=== PATIENT | female | born 1950 | race Caucasian/White ===

== ENCOUNTER → 2017-01-16 | Outpatient (CLI) | payer MEDICARE, OTHER ==
[~2017-01-16] MED LIST: ASPI325T PO; ATEN1TAB74 PO; ATEN50TA PO; BENI20TA25 PO; BENI40TA3 PO; DIAZ10TA PO; FENO145T2 PO; HYDR12.56 PO; LOSA50TA PO; METF500 PO
[2017-01-16 16:08] LABS: BLOOD, URINE NEG (NEG); GLUCOSE,URINE NEG (NEG); KETONE, URINE NEG (NEG); NITRITE,URINE NEG (NEG); PH, URINE 5.5 (5.0-8.5); SQUAMOUS EPITHELIAL CELL URINE <1 /hpf (0-5); URINE COLOR COLORLESS (YELLW/STRAW)
[2017-01-16 16:14] LABS: AUTOMATED NEUTROPHIL # 6.5 TH/MM3 (1.8-7.7); BASOPHIL # 0.1 TH/MM3 (0-0.2); BASOPHIL % 0.6 % (0.0-2.0); EOSINOPHIL # 0.3 TH/MM3 (0-0.4); EOSINOPHIL % 2.8 % (0.0-4.0); HEMATOCRIT 44.6 % (35.0-46.0); HEMO FLAGS DIFF FINAL; LYMPH % 27.8 % (9.0-44.0); LYMPHOCYTE # 2.9 TH/MM3 (1.0-4.8); MEAN CELL VOLUME 92.3 FL (80.0-100.0); MEAN CORPUSCULAR HEMOGLOBIN 32.2 PG (27.0-34.0); MEAN CORPUSCULAR HGB CONC 34.9 % (32.0-36.0); MONO % 6.6 % (0.0-8.0); NEUT % 62.2 % (16.0-70.0); PLATELET COUNT 220 TH/MM3 (150-450); RED BLOOD COUNT 4.83 MIL/MM3 (4.00-5.30); RED CELL DISTRIBUTION WIDTH 14.3 % (11.6-17.2); WHITE BLOOD COUNT 10.4 TH/MM3 (4.0-11.0)
[2017-01-16 16:35] LABS: BICARBONATE 24.9 MEQ/L (21.0-32.0); POTASSIUM 3.8 MEQ/L (3.5-5.1)
== END ==
LOC: PLAB 13:00
PROVIDERS: ATTEND Internal Medicine Nephrology
DX: N18.3 Chronic kidney disease, stage 3 (moderate) (principal)
CPT/HCPCS: 36415; 80069; 81001; 82088; 84244; 85025

== ENCOUNTER 2017-01-22 20:38 | Observation (INO) | payer MEDICARE, OTHER ==
[~2017-01-22] VITALS: Ht 160 cm; Wt 79.8 kg
[~2017-01-22 20:38] MED LIST changes: -ASPI325T PO; -ATEN50TA PO; -BENI40TA3 PO; -DIAZ10TA PO; -FENO145T2 PO; -HYDR12.56 PO; -LOSA50TA PO; -METF500 PO
[2017-01-22 20:51] VITALS: BP 161/87; PULSE 95; RESP 20; TEMP 98.5; O2SAT 98
[2017-01-22] MEDS ORDERED: ATEN50TA PO (20:55)
[2017-01-22] MEDS ORDERED: LOSA50TA PO (20:56)
[2017-01-22 21:10] VITALS: BP 179/90; PULSE 92; RESP 20; O2SAT 96
[2017-01-22] MEDS ORDERED: SODIUM CHLORIDE 0.9% FLUSH 10 ML FLUSH IVF PRN (21:15)
[2017-01-22] MEDS ORDERED: ASPI325T PO (21:24)
[2017-01-22] MEDS ORDERED: BENI40TA3 PO (21:24)
[2017-01-22] MEDS ORDERED: HYDR12.56 PO (21:24)
[2017-01-22] MEDS ORDERED: DIAZ10TA PO (21:24)
[2017-01-22 21:31] VITALS: BP_SYST 176; BP_SYST 179; BP_DIAS 83; BP_DIAS 90
[2017-01-22 21:55] LABS: AUTOMATED NEUTROPHIL # 5.2 TH/MM3 (1.8-7.7); BASOPHIL # 0.1 TH/MM3 (0-0.2); BASOPHIL % 0.7 % (0.0-2.0); EOSINOPHIL # 0.3 TH/MM3 (0-0.4); EOSINOPHIL % 3.1 % (0.0-4.0); HEMO FLAGS DIFF FINAL; LYMPH % 29.5 % (9.0-44.0); LYMPHOCYTE # 2.6 TH/MM3 (1.0-4.8); MEAN CELL VOLUME 92.4 FL (80.0-100.0); MEAN CORPUSCULAR HEMOGLOBIN 31.9 PG (27.0-34.0); MEAN CORPUSCULAR HGB CONC 34.5 % (32.0-36.0); MONO % 6.8 % (0.0-8.0); NEUT % 59.9 % (16.0-70.0); PLATELET COUNT 220 TH/MM3 (150-450); RED BLOOD COUNT 5.09 MIL/MM3 (4.00-5.30); RED CELL DISTRIBUTION WIDTH 13.1 % (11.6-17.2); WHITE BLOOD COUNT 8.8 TH/MM3 (4.0-11.0)
--- NOTE | 2017-01-22 22:02 | RADHPO ---
EXAM DATE/TIME: 01/22/2017 21:36 [facility] COMPARISON: No previous studies available for comparison. INDICATIONS : Short of breath. MEDICAL HISTORY : None. SURGICAL HISTORY : None. ENCOUNTER: Initial ACUITY: 1 day PAIN SCORE: 0/10 LOCATION: Bilateral chest FINDINGS: A single view of the chest demonstrates the lungs to be symmetrically aerated without evidence of mas s, infiltrate or effusion. The cardiomediastinal contours are unremarkable. Osseous structures are intact. CONCLUSION: The lungs are clear. Lionel Wood MD on January 22, 2017 at 22:01 Board Certified Radiologist. This report was verified electronically.
--- NOTE | 2017-01-22 22:02 | PD ---
HPI Chief Complaint: Neuro Symptoms/ Deficits Time Seen by Provider: 21:14 Travel History International Travel<30 days: No Contact w/Intl Traveler<30days: No Traveled to known affect area: No History of Present Illness HPI Patient's 6-year-old female presents emergency department for evaluation of right-sided hand weakness as well as dysarthria. These symptoms going on for the past 6 days. Patient relates a history of long-standing bilateral lower extremity weakness and is been followed by Dr. Mick Martin for this. These new symptoms alarmed the patient and her friend and instead come in and be checked out. She states the upper extremity weakness is never happened before. She does admit that both upper extremities do feel weak but the right one particularly. She denies any visual difficulties headache nausea vomiting diarrhea constipation. Denies previous history of stroke or heart attack. PFSH Past Medical History Heart Rhythm Problems: Yes (SVT) Cancer: No Cardiovascular Problems: Yes (SVT, AND A MURMUR) Diabetes: Yes Patient Takes Glucophage: No Diminished Hearing: No Fibromyalgia: Yes Gastrointestinal Disorders: Yes (INCONCLUSIVE CELIAC) Glaucoma: No Hepatitis: No Hiatal Hernia: No Hypertension: Yes Thyroid Disease: No Tetanus Vaccination: Unknown Influenza Vaccination: No ?: Not LMP: POST MENAPAUSAL Menopausal: Yes Ovarian Cysts: Yes Past Surgical History Abdominal Surgery: Yes Appendectomy: Yes Cardiac Surgery: No Section: Yes Ear Surgery: No Endocrine Surgery: No Eye Surgery: No Genitourinary Surgery: Yes (C SECTION AND CYSTS REMOVED FROM OVARIES) Gynecologic Surgery: Yes (FIBROID TUMOR REMOVED) Oral Surgery: No Pacemaker: No Thoracic Surgery: No Other Surgery: Yes Social History Alcohol Use: No Tobacco Use: Yes (1/2 PACK PER DAY 15 YEARS) Substance Use: No Allergies-Medications (Allergen,Severity, Reaction): Coded Allergies: No Known Allergies (Verified , 01/22/17) Reported Meds & Prescriptions Reported Meds & Active Scripts Active Reported Diazepam 10 Mg Tab 10 Mg PO HS PRN Benicar (Olmesartan) 40 Mg Tab 40 Mg PO DAILY Hydrochlorothiazide 12.5 Mg Tab 12.5 Mg PO BID Aspirin 325 Mg Tab 325 Mg PO DAILY Losartan (Losartan Potassium) 50 Mg Tab 50 Mg PO DAILY Atenolol 50 Mg Tab 50 Mg PO DAILY Review of Systems Except as stated in HPI: all other systems reviewed are Neg Physical Exam Narrative GENERAL: Well-developed well-nourished no apparent distress. SKIN: Focused skin assessment warm/dry. HEAD: Atraumatic. Normocephalic. EYES: Pupils equal and round. No scleral icterus. No injection or drainage. ENT: No nasal bleeding or discharge. Mucous membranes pink and moist. NECK: Trachea midline. No JVD. CARDIOVASCULAR: Regular rate and rhythm. No murmur appreciated. RESPIRATORY: No accessory muscle use. Clear to auscultation. Breath sounds equal bilaterally. GASTROINTESTINAL: Abdomen soft, non-tender, nondistended. Hepatic and splenic margins not palpable. MUSCULOSKELETAL: No obvious deformities. No clubbing. No cyanosis. No edema. NEUROLOGICAL: Cranial nerves II through XII are grossly intact nonfocal, patient has 3 out of 5 strength in plantar flexion of the right lower extremity , 4 out of 5 strength in the left lower extremity. 4-5 experimental mechanic strength in bilateral upper extremities. DTRs are normal throughout. Babinski's are downgoing bilaterally. Cerebellar testing normal.. PSYCHIATRIC: Appropriate mood and affect; insight and judgment normal. Data Data Last Documented VS Vital Signs Date Time Temp Pulse Resp B/P Pulse Ox O2 Delivery O2 Flow Rate FiO2 01/22/17 23:10 73 18 168/80 97 Room Air 01/22/17 21:32 2 01/22/17 20:51 98.5 Orders Ckmb (Isoenzyme) Profile (01/22/17 21:15) Complete Blood Count With Diff (01/22/17 21:15) Comprehensive Metabolic Panel (01/22/17 21:15) Magnesium (Mg) (01/22/17 21:15) Prothrombin Time / Inr (Pt) (01/22/17 21:15) Act Partial Throm Time (Ptt) (01/22/17 21:15) Troponin I (01/22/17 21:15) Chest, Single Ap (01/22/17 21:15) Ecg Monitoring (01/22/17 21:15) Iv Access Insert/Monitor (01/22/17 21:15) Oximetry (01/22/17 21:15) Oxygen Administration (01/22/17 21:15) Sodium Chloride 0.9% Flush (Ns Flush) (01/22/17 21:15) Ct Brain W/O Iv Contrast(Rout) (01/22/17 21:19) Aspirin Chew (Aspirin Chew) (01/22/17 23:15) Admit Order (Ed Use Only) (01/22/17 ) Labs Laboratory Tests Test 01/22/17 21:40 White Blood Count 8.8 TH/MM3 Red Blood Count 5.09 MIL/MM3 Hemoglobin 16.3 GM/DL Hematocrit 47.0 % Mean Corpuscular Volume 92.4 FL Mean Corpuscular Hemoglobin 31.9 PG Mean Corpuscular Hemoglobin 34.5 % Concent Red Cell Distribution Width 13.1 % Platelet Count 220 TH/MM3 Mean Platelet Volume 8.4 FL Neutrophils (%) (Auto) 59.9 % Lymphocytes (%) (Auto) 29.5 % Monocytes (%) (Auto) 6.8 % Eosinophils (%) (Auto) 3.1 % Basophils (%) (Auto) 0.7 % Neutrophils # (Auto) 5.2 TH/MM3 Lymphocytes # (Auto) 2.6 TH/MM3 Monocytes # (Auto) 0.6 TH/MM3 Eosinophils # (Auto) 0.3 TH/MM3 Basophils # (Auto) 0.1 TH/MM3 CBC Comment DIFF FINAL Differential Comment Prothrombin Time 10.4 SEC Prothromb Time International 0.9 RATIO Ratio Activated Partial 28.0 SEC Thromboplast Time Sodium Level 137 MEQ/L Potassium Level 4.3 MEQ/L Chloride Level 100 MEQ/L Carbon Dioxide Level 26.3 MEQ/L Anion Gap 11 MEQ/L Blood Urea Nitrogen 20 MG/DL Creatinine 1.20 MG/DL Estimat Glomerular Filtration 45 ML/MIN Rate Random Glucose 157 MG/DL Calcium Level 9.2 MG/DL Magnesium Level 2.1 MG/DL Total Bilirubin 0.3 MG/DL Aspartate Amino Transf 19 U/L (AST/SGOT) Alanine Aminotransferase 25 U/L (ALT/SGPT) Alkaline Phosphatase 86 U/L Total Creatine Kinase 75 U/L Troponin I LESS THAN 0.02 NG/ML Total Protein 7.9 GM/DL Albumin 3.7 GM/DL [facility] Medical Decision Making Medical Screen Exam Complete: Yes Emergency Medical Condition: Yes Interpretation(s) EKG shows normal sinus rhythm with a left axis deviation and left anterior fascicular block. Poor R-wave progression. Inverted T waves in lead [address] No [address] segment elevations or depressions. This is an abnormal EKG. There is no previous EKG for comparison. Differential Diagnosis Election abnormality, subacute stroke, TIA, MS. Narrative Course Patient is roomed in the emergency department, she is a very circuitous history starting at bilateral lower extremity weakness which been ongoing for years ending in this right-sided hand weakness and some mild slurred speech. On my physical exam patient has some weakness in all 4 extremities probably secondary to poor effort however she does have weakness in the right lower extremity and plantar flexion. CT exam shows: Last [address] 01/22/172118 Signed Impressions: Service Date/Time: Sunday, January 22, 2017 21:46 - CONCLUSION: There are 3 focal hypodensities in the high left fleming radiata which have features suggesting lacunar infarcts. However, the patient has acute symptoms including slurred speech. There is good mcallister-white matter differentiation. May consider performing an MRI for confirmation lacunar infarcts. Lionel Wood MD Chest X-Ray 01/22/172114 Signed Impressions: Service Date/Time: Sunday, January 22, 2017 21:36 - CONCLUSION: The lungs are clear. Lionel Wood MD Patient also does have an abnormal EKG initial troponin negative. She did take a full dose aspirin prior to arrival. Patient was discussed with George Villafana for admission to ED as [facility] for workup of subacute stroke. Diagnosis Primary Impression: Stroke Qualified Code: I63.9 - Cerebrovascular accident (CVA), unspecified mechanism Admitting Information Admitting Physician Requests: Observation Condition: Stable Ketan Mcbride MD Jan 22, 2017 22:01
[2017-01-22 22:03] LABS: CHLORIDE 100 MEQ/L (98-107); POTASSIUM 4.3 MEQ/L (3.5-5.1); SODIUM (NA) 137 MEQ/L (136-145)
[2017-01-22 22:07] LABS: ANION GAP 11 MEQ/L (5-15); BICARBONATE 26.3 MEQ/L (21.0-32.0); BLOOD UREA NITROGEN 20 MG/DL (7-18); MAGNESIUM 2.1 MG/DL (1.5-2.5)
[2017-01-22 22:08] LABS: INTERNATIONAL NORMALIZED RATIO 0.9 RATIO; PROTHROMBIN TIME - PATIENT 10.4 SEC (9.8-11.6)
[2017-01-22 22:10] LABS: ALT (GPT) 25 U/L (10-53); AST (GOT) 19 U/L (15-37); GLOMERULAR FILTRATION RATE 45 ML/MIN (>89)
[2017-01-22 22:12] LABS: TOTAL BILIRUBIN ADULT 0.3 MG/DL (0.2-1.0)
[2017-01-22 22:13] LABS: ALKALINE PHOSPHATASE 86 U/L (45-117)
[2017-01-22 22:23] LABS: CREATINE KINASE 75 U/L (26-192)
--- NOTE | 2017-01-22 22:45 | RADHPO ---
EXAM DATE/TIME: 01/22/2017 21:46 [facility] COMPARISON: No previous studies available for comparison. INDICATIONS : Altered mental status. Slurred speech. RADIATION DOSE: 57.61 CTDIvol (mGy) MEDICAL HISTORY : Diabetes mellitus type 2. Hypertension. SURGICAL HISTORY : None. ENCOUNTER: Initial ACUITY: 2 weeks PAIN SCALE: 0/10 LOCATION: cranial TECHNIQUE: Multiple contiguous axial images were obtained of the head. Using automated exposure control and adj ustment of the mA and/or kV according to patient size, radiation dose was kept as low as reasonably a chievable to obtain optimal diagnostic quality images. FINDINGS: CEREBRUM: The ventricles are normal for age. No evidence of midline shift, mass lesion, hemorrhage or acute in farction. There are 3 lacunar infarcts in the high convexity anterior left fleming radiata measuring up to 7 mm size. No extra-axial fluid collections are seen. POSTERIOR FOSSA: The cerebellum and brainstem are intact. The 4th ventricle is midline. The cerebellopontine angle i s unremarkable. EXTRACRANIAL: The visualized portion of the orbits is intact. SKULL: The calvaria is intact. No evidence of skull fracture. CONCLUSION: There are 3 focal hypodensities in the high left fleming radiata which have features suggesting lacuna r infarcts. However, the patient has acute symptoms including slurred speech. There is good mcallister-wh ite matter differentiation. May consider performing an MRI for confirmation lacunar infarcts. Lionel Wood MD on January 22, 2017 at 22:41 Board Certified Radiologist. This report was verified electronically.
[2017-01-22 23:10] VITALS: BP 168/80; PULSE 73; RESP 18; O2SAT 97
[2017-01-22] MEDS ORDERED: ASPIRIN 81 MG CHEW TAB CHEW ONE (23:15)
[2017-01-23] VITALS (11 sets, daily range): BP systolic 139–176; BP diastolic 71–104; PULSE 66–87; RESP 15–20; TEMP 96.2–97.6; O2SAT 94–99
[2017-01-23] MEDS ORDERED: GLUCAGON 1 MG/ML VIAL IM/SQ PRN (00:45)
[2017-01-23] MEDS ORDERED: SODIUM CHLORIDE 0.9% FLUSH 10 ML FLUSH IV FLUSH PRN (00:45)
[2017-01-23] MEDS ORDERED: DEXTROSE 50% IN WATER 50 ML VIAL(D50) IV PUSH PRN (00:45)
[2017-01-23] MEDS: ENOXAPARIN SODIUM 40 MG/0.4 ML SYRINGE SQ SCH (01:05)
[2017-01-23] MEDS: SODIUM CHLOR 0.9% 1000 ML INJ 1,000 ML IV SCH ×2 (01:05→15:34)
[2017-01-23] MEDS: INSULIN ASPART SUPPLEMENTAL SCALE SQ SCH ×4 (06:19→21:00)
--- NOTE | 2017-01-23 08:44 | MB ---
cc: FAISAL CONLEY DATE OF CONSULTATION 01/23/2017 REASON FOR CONSULTATION Ischemic stroke. HISTORY OF PRESENT ILLNESS Ms. Rodríguez is a 66-year-old female who presented to the [facility] Emergency Department for evaluation of recent onset of slurred speech and right-sided hand weakness. The patient states that her slurred speech started almost two days ago. However, she had felt that her right hand, "felt funny" where she was not able to use it properly in doing daily tasks like toothbrushing, writing or using the phone. That lasted "a couple of days". The patient also states that she has a longstanding history. She thinks since Hubert to 2016 where she had her both legs gave out on her. The also reports nonspecific left-sided frontal headache. Denies double vision, blurred vision. She thinks she occasionally gets droopy on the right side of the face but denies numbness of the right side of the face. She denies weakness of an extremity or numbness of an extremity. The patient denies history of TIA or stroke. The patient has history of hypertension, diabetes and she is not on a blood thinner. The patient also reports that she has lost vision in the right eye after her cataract surgery for two weeks. REVIEW OF SYSTEMS A 12-point review of systems is negative except for what is stated in the HPI. PAST MEDICAL HISTORY 1. Hypertension. 2. Diabetes. 3. Questionable SVT/murmur. PAST SURGICAL HISTORY 1. Cataract. 2. Appendectomy. 3. section. 4. Removal of fibroid tumor. SOCIAL HISTORY Denies alcohol and substance abuse. Smokes one-pack per day for 15 years. ALLERGIES No known allergies. MEDICATIONS 1. Diazepam. 2. Benicar. 3. Hydrochlorothiazide. 4. Losartan. 5. Atenolol. PHYSICAL EXAMINATION GENERAL: Well-developed, good historian, not in apparent distress. A little bit of anxiety. HEENT: Atraumatic, normocephalic. Intact hearing. Intact vision. NECK: Trachea in the midline. No JVD, no carotid bruits. CARDIOVASCULAR: Regular rate and rhythm. RESPIRATORY: Clear to auscultation. No wheezes. MUSCULOSKELETAL: No obvious deformity. No clubbing, no cyanosis, no edema. Moves all extremities equally. NEUROLOGICAL: Awake, alert and oriented to time, person and place. Intact memory. Cranial nerve examination with subtle right facial weakness, slurred speech, intact speech content. Intact naming. Intact repetition. No dysphasic symptoms. Intact external ocular motility. Left cataract. Intact elevation of the uvula. Normal tongue, normal tongue movement. Intact facial sensation. Intact trapezius and sternocleidomastoid. Normal cerebellar signs, [id number], [id number]. Reflexes 2+ bilateral and symmetrical. Muscle strength 5/5 bilateral and symmetrical. No abnormal movement. Normal tone. Plantars are bilaterally downgoing, intact. Intact stance, intact gait. No ataxia. PSYCHIATRIC: Appropriate mood and behavior. No hallucinations. LABORATORY DATA White blood cells 8.8, hemoglobin 15.3, MCV 92, platelet 220. Sodium 137, potassium 4.3, anion gap 11, BUN 20, creatinine 1.2, calcium 9.2, magnesium 2.1. SGOT 19, GPT 25, alkaline phosphatase 86, albumin 3.7, total protein 7.1. IMAGING STUDIES - Head CT scan without contrast revealed three focal hypodensities in the high left coronary artery which are features suggestive of lacunar infarcts. However, the patient has acute symptoms including slurred speech. There is good mcallister-white matter differentiation. DIAGNOSTIC IMPRESSION 1. Acute/subacute infarct. 2. Given the constellation of dysarthria and clumsy hands, this can be a lacunar infarction on left region of the brain. 3. Hypertension. 4. Diabetes mellitus. PLAN 1. Neuro checks q. 4 hourly. 2. Aspirin 81 mg daily. 3. Telemetry. 4. Cardiac echo. 5. MRI brain without contrast. 6. MRA brain without contrast. 7. Carotid ultrasound. 8. DVT prophylaxis. 9. Speech therapy recommendations are appreciated. Thank you for the opportunity to participate in the care of your patient. MD JOE Becerra/TRUONG /8:13 AM :26 AM [facility]
[2017-01-23] MEDS ORDERED: ASPIRIN 81 MG CHEW TAB PO SCH (09:00)
[2017-01-23] MEDS: SODIUM CHLORIDE 0.9% FLUSH 10 ML FLUSH IV FLUSH SCH ×2 (09:00→21:00)
[2017-01-23] MEDS: ATENOLOL 50 MG TAB PO SCH (09:12)
[2017-01-23] MEDS: ASPIRIN 325 MG TAB PO SCH (09:12)
--- NOTE | 2017-01-23 09:17 | EKG ---
Date Performed: 01/22/2017 Time Performed: 21:09:00 PTAGE: 66 years EKG: Possible ectopic atrial rhythm Possible left anterior fascicular block Possible anterior in farct - age undetermined Possible left ventricular hypertrophy Lateral T wave changes may be due to h ypertrophy and/or ischemia Abnormal ECG NO PREVIOUS TRACING DOCTOR: Cesar Fernando Interpretating Date/Time 01/23/2017 09:15:04
--- NOTE | 2017-01-23 09:26 | MH ---
cc: QUINTIN HICKEY MD DATE OF ADMISSION: 01/22/2017 DATE OF 1950 CHIEF COMPLAINT Right-sided hand weakness and difficulty in speaking for the last six days. HISTORY OF PRESENT ILLNESS This is a 66-year-old very pleasant female with past medical-surgical history significant for SVT and heart murmur, history of diabetes mellitus, fibromyalgia, celiac disease, history of hypertension, history of and a cyst removed from the ovary, fibroid tumor removed, history of appendectomy. She came to the ER at [facility] complaining of right hand weakness as well as the difficulty in speaking for the last six days and she did not seek immediate attention for these symptoms or visit to the ER of any hospital. She has a history of hypertension as dictated above and also history of bilateral lower extremity weakness and had been following with Dr. Wilfred Martin in his office and she said that she had weakness of the right hand and also difficulty in speaking. Her friend insisted that she go ahead and check it out, but she did not and this upper extremity weakness in the right hand never happened before. She denies any headache, any blurred vision, any nausea or vomiting, any double vision, any hearing problem. Denies any numbness or tingling denies any neck stiffness, fever or chills. Denies any chest pain, shortness of breath. Denies any abdominal pain. Denies any blood in the stool, black stool. Denies any hematuria, UTI symptoms and denies any other symptom at the time of examination. PAST MEDICAL-SURGICAL HISTORY As dictated above. SOCIAL HISTORY Denies drinking. Smoked 1/2-pack per day for more than 15 years and she denies any drug abuse. She lives at home alone. 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 FAMILY HISTORY Nothing significant. ALLERGIES No known drug allergies. MEDICATIONS 1. Diazepam 10 mg p.o. at bedtime p.r.n. insomnia. 2. Benicar 40 mg p.o. daily. 3. Hydrochlorothiazide 12.5 mg p.o. b.i.d. 4. Aspirin 325 mg p.o. daily. 5. Losartan 50 mg p.o. daily. 6. Atenolol 50 mg p.o. daily. REVIEW OF SYSTEMS Positive for mild right-hand weakness and difficulty in speech. All other review of systems are negative. PHYSICAL EXAMINATION GENERAL: This is a 66-year-old female sitting on the bed, not in acute distress. VITAL SIGNS: Temperature is 97.6, heart 87, respiration 20, blood pressure 139/73, O2 saturation 99 on room air. HEENT: Normocephalic, atraumatic. EOMI. PERRLA. Oral mucosa moist. NECK: Supple. No visible thyromegaly or neck mass. Trachea is central. CVS: Regular rate and rhythm. LUNGS: Respirations clear to auscultation bilaterally. ABDOMEN: Soft, nontender. Bowel sounds good. EXTREMITIES: No cyanosis, no clubbing. Full range of motion of all extremities. NEUROLOGIC EXAMINATION: Cranial nerves II through XII grossly intact, nonfocal. The patient has 3/5 strength on the right lower extremity and 4/5 strength in the left lower extremity. Strength in the upper extremities 4/5. Gait and reflexes are normal. Babinski downgoing bilaterally. Cerebellar tests are normal. Higher mental functions are intact. PSYCH: Mood and affect is normal. The patient is cooperative. SKIN: Warm and dry. LABORATORY DATA CBC totally unremarkable except for hemoglobin of 16.3 - high, hematocrit 47.0 - high. BMP totally unremarkable except for BUN of 20 - high, creatinine 1.20 - high, GFR 45, glucose 157 - high. Troponin-I less than 0.02. Total protein 7.9 - normal, albumin 3.7 - normal. LFTs are normal. Total creatine kinase 75 -normal. PT 10.4, INR 0.9, APTT 28.0. CHEST X-RAY Shows lungs are. CT BRAIN Shows there are three focal hypodensities in the high left fleming radiata which have features suggesting lacunar infarct. However, the patient had acute symptoms including slurred speech. There is a good mcallister-white matter differentiation. May consider performing MRI. MRI and MRA of the brain are pending. Carotid ultrasound pending. ASSESSMENT AND PLAN 1. This is a 66-year-old female who came to the ER diagnosed with six-day history of right hand weakness as well as dysarthria, rule out stroke. A CT brain done shows three focal hypodensities in the high left fleming radiata which have feature suggesting lacunar infarct and there is a good mcallister-white matter differentiation on the CT. Getting MRA/MRI of the brain and carotid Doppler. Neurology consulted. Neuro check every 6 hours. The patient is on aspirin. The patient's blood pressure giving her permissible hypertension. Neuro checks every 6-hours. Further recommendations per patient progress. 2. History of hypertension. Continue home medication. Given permissible hypertension. 3. History of anxiety. Continue with diazepam. 4. History of diabetes mellitus, most likely diet controlled. We will monitor blood sugar closely during hospital stay. 5. History of SVT. The patient is not having any tachycardia. 6. History of celiac disease. 7. DVT prophylaxis. Lovenox 40 mg subcutaneous daily. 8. GI prophylaxis. Protonix 40 mg p.o. daily. We are going to manage the patient on a daily basis and make recommendations on a daily basis. Quintin Hickey MD EA/TRUONG /8:35 AM /8:58 AM
--- NOTE | 2017-01-23 11:29 | RADHPO ---
EXAM DATE/TIME: 01/23/2017 10:37 [facility] COMPARISON: No previous studies available for comparison. INDICATIONS : Cerebrovascular accident. MEDICAL HISTORY : Hypercholesterolemia. Hypertension. Cerebrovascular accident. SVT and murmur. Ovarian cysts. Diabet es. Renal disease. SURGICAL HISTORY : Appendectomy. section. Fibroid tumor removed. Ovarian cysts removed. Left knee arthroscopy . ENCOUNTER: Initial ACUITY: 1 day PAIN SCORE: 0/10 LOCATION: Bilateral neck PEAK SYSTOLIC VELOCITIES (cm/sec): ICA/CCA RATIO: Right: 1.1 Left: 0.8 ICA: Right: 113 Left: 78 CCA: Right: 106 Left: 97 ECA: Right: 107 Left: 145 VERTEBRAL: Right: 57 antegrade Left: 34 antegrade Elevated flow velocities and ICA/CCA ratios have been found to correlate with increased degrees of vessel stenosis, calculated as percentage of diameter relative to a normal segment of distal ICA/CCA FINDINGS: RIGHT CAROTID: No significant stenosis is visualized. There is mild atherosclerotic plaquing. The waveforms are wit hin normal limits. LEFT CAROTID: No significant stenosis is visualized. There is mild atherosclerotic plaquing. The waveforms are with in normal limits. VERTEBRAL ARTERIES: Antegrade flow is seen in both vertebral arteries. MISCELLANEOUS: None. CONCLUSION: 1. Mild atherosclerotic plaquing at the carotid bifurcations. No hemodynamically significant carotid artery stenosis. Nikolas Stewart MD on January 23, 2017 at 11:27 Board Certified Radiologist. This report was verified electronically.
--- NOTE | 2017-01-23 13:31 | EC ---
Study Study Date:01/23/2017 STUDY CONCLUSIONS SUMMARY - Procedure narrative: Transthoracic echocardiography. Image quality was fair. Scanning was performed from the parasternal, apical, and subcostal acoustic windows. - Left ventricle: The cavity size was normal. Wall thickness was normal. Systolic function was normal. The estimated ejection fraction was in the range of 55% to 60%. Although no diagnostic regional wall motion abnormality was identified, this possibility cannot be completely excluded on the basis of this study. - Aortic valve: Poorly visualized. - Mitral valve: Trace regurgitation. If LV function is below 40, please consider prescribing an ACEI or ARB or document rationale for non-use. PROCEDURE DATA STUDY STATUS: Elective. Procedure: Transthoracic echocardiography. Image quality was fair. Scanning was performed from the parasternal, apical, and subcostal acoustic windows. Study completion: The patient tolerated the procedure well. Transthoracic echocardiography. M-mode, complete 2D, complete spectral Doppler, and color Doppler. Height: Height: 63in. Weight: Weight: 174.6lb. Body mass index: BMI: 31kg/m^2. Body surface area: BSA: 1.83m^2. Patient status: Inpatient. CARDIAC ANATOMY LEFT VENTRICLE: The cavity size was normal. Wall thickness was normal. Systolic function was normal. The estimated ejection fraction was in the range of 55% to 60%. Although no diagnostic regional wall motion abnormality was identified, this possibility cannot be completely excluded on the basis of this study. AORTIC VALVE: Poorly visualized. Doppler: Transvalvular velocity was within the normal range. There was no stenosis. No regurgitation. Valve area: 1.46cm^2 (Vmax). Indexed valve area: 0.8cm^2/m^2 (Vmax). Peak gradient: 13mm Hg (S). AORTA: Aortic root: The aortic root was normal in size. MITRAL VALVE: Structurally normal valve. Doppler: Transvalvular velocity was within the normal range. There was no evidence for stenosis. Trace regurgitation. Peak gradient: 2mm Hg (D). LEFT ATRIUM: The atrium was normal in size. RIGHT VENTRICLE: The cavity size was normal. Wall thickness was normal. PULMONIC VALVE: Doppler: Transvalvular velocity was within the normal range. There was no evidence for stenosis. No regurgitation. TRICUSPID VALVE: Structurally normal valve. Doppler: Transvalvular velocity was within the normal range. No regurgitation. PULMONARY ARTERY: The main pulmonary artery was normal-sized. Systolic pressure was within the normal range. RIGHT ATRIUM: The atrium was normal in size. PERICARDIUM: There was no pericardial effusion. SYSTEMIC VEINS: Inferior vena cava: The vessel was normal in size. Patient weight: 174.6lb _Ejection fraction:_ 65-75% _Fractional shortening:_ 32% up to 5Kg 5-11.5Kg 11.6-22.9Kg 23-45Kg 45-57Kg Aortic Root 7-13 <17 13-22 17-27 17-27 LA diam 6-13 <23 24-38 33-47 37-40 RVID 10-17 7-15 7-15 7-18 8-17 LVIDd 12-22 <32 24-38 33-47 37-40 LVPW 2-4 3-6 5-7 6-8 7-8 IVS 2-4 3-6 5-7 6-8 7-8 BASIC MEASUREMENTS ADULT NORMAL Left ventricle LV internal dimension, ED, chordal 44.1 mm 43-52 level, PLAX LV internal dimension, ES, chordal 30.5 mm 23-38 level, PLAX Fractional shortening, chordal level, 31 % >29 PLAX LV posterior wall thickness, ED 8.14 mm IVS/LVPW ratio, ED 1 <1.3 Ventricular septum Septal thickness, ED 8.14 mm Aortic valve Leaflet separation *14 mm 15-26 BASIC MEASUREMENTS ADULT NORMAL Aortic valve Leaflet separation *14 mm 15-26 Aorta Root diameter, ED *19 mm 20-37 Left atrium Anterior-posterior dimension, ES 36 mm 19-40 Anterior-posterior dimension index, ES 1.97 cm/m^2 <2.2 LA/aortic root ratio 1.89 DOPPLER MEASUREMENTS ADULT NORMAL Aortic valve Peak velocity, S 179 cm/s Peak gradient, S 13 mm Hg Valve area, Vmax 1.46 cm^2 Valve area index, Vmax 0.8 cm^2/m^2 Mitral valve Peak E-wave velocity 78.5 cm/s Peak A-wave velocity 101 cm/s Deceleration time 169 ms 150-230 Peak gradient, D 2 mm Hg Peak E/A ratio 0.8 LEGEND: Mean values are shown as u=mean value. Asterisk (*) thompson values outside specified normal range. Prepared and signed by Ernesto Zee [id number]
[2017-01-23 16:09] LABS: HEMOGLOBIN A1b 1.3 %; HEMOGLOBIN Ao 82.2 %; HEMOGLOBIN F 1.6 %; HEMOGLOBIN LA1C 2.1 %; HEMOGLOBIN P3 4.4 %
--- NOTE | 2017-01-23 18:05 | RADHPO ---
EXAM DATE/TIME: 01/23/2017 14:57 [facility] COMPARISON: MRI BRAIN W/O CONTRAST, January 23, 2017, 14:57. INDICATIONS : Slurred speech. MEDICAL HISTORY : Hypertension. Arthritis. Diabetes mellitus type 2. SURGICAL HISTORY : Hysterectomy. Arthroscopy. ENCOUNTER: Initial ACUITY: 2 day PAIN SCORE: 0/10 LOCATION: head Please note a normal MRA of the brain does not entirely exclude the possibility of a small aneurysm, nor the possibility of distal intracranial vessel disease. TECHNIQUE: 3D time of flight MRA was performed. Source images, multiplanar STS MIP, and 3D volume MIP reconstru ctions were reviewed. FINDINGS: First the moderately severe diffuse attenuation of the cavernous carotid and supraclinoid carotid on the left. The flow related enhancement in the left anterior and middle cerebral territories is corres pondingly diminished. The anterior circulation on the right is intact and unremarkable. The posterior circulation structures are intact and unremarkable. There is no evidence of major vessel occlusion. No aneurysm or vascular malformation is identified. CONCLUSION: Moderate asymmetric attenuation of the distal left internal carotid artery with correspondingly dimin ished left-sided anterior circulation flow related enhancement. The appearance may reflect intrinsic steno-occlusive disease, however inflow abnormality as potentially from proximal left carotid or barfield tid bifurcation disease should additionally be considered and screened for. George Wallis MD on January 23, 2017 at 17:59 Board Certified Radiologist. This report was verified electronically.
--- NOTE | 2017-01-23 18:32 | RADHPO ---
EXAM DATE/TIME: 01/23/2017 14:57 [facility] COMPARISON: No previous studies available for comparison. INDICATIONS : Slurred speech. MEDICAL HISTORY : Hypertension. Diabetes mellitus type 2. SURGICAL HISTORY : Arthroscopy. Hysterectomy. ENCOUNTER: Initial ACUITY: 2 day PAIN SCORE: 0/10 LOCATION: head TECHNIQUE: Multiplanar, multisequence MRI of the brain was performed without contrast. FINDINGS: There are 3 lesions seen in the left frontal white matter on CT that are identified on MRI. The large st lesion measures 1 cm in diameter and has very intense increased signal on the diffusion weighted i mages. The other smaller subcentimeter lesions have much less signal abnormality on diffusion weighte d images. There is also a sub-5 mm lesion in the left parietal lobe which has increased signal on dif fusion weighted images and on the flair images. No significant signal abnormality in the posterior fossa. There is no mass effect or midline shift. N o hydrocephalus. CONCLUSION: 1. 1 cm diameter spherical focus of intense increased signal abnormality in the posterior left fronta l lobe on the diffusion weighted images. Primary differential diagnosis is an acute lacunar infarct. However other conditions such as infection or tumor can occasionally give this appearance. Recommend further evaluation with MRI of the brain with contrast to assess for enhancement. There are 2 additio nal subcentimeter lesions in the left frontal lobe and one in the left parietal lobe that have much l ess signal abnormality on diffusion weighted images and could represent subacute infarcts or other le sions. These could also be evaluated on MRI with contrast. There is no mass effect or shift. No evide nce for hemorrhage. No hydrocephalus. Carlton Early MD on January 23, 2017 at 18:21 Board Certified Radiologist. This report was verified electronically.
[2017-01-24] VITALS (7 sets, daily range): BP systolic 160–214; BP diastolic 83–128; PULSE 64–84; RESP 16–18; TEMP 96.3–98.4; O2SAT 94–98
[2017-01-24] MEDS: ENOXAPARIN SODIUM 40 MG/0.4 ML SYRINGE SQ SCH ×2 (01:54→22:55)
[2017-01-24] MEDS: SODIUM CHLOR 0.9% 1000 ML INJ 1,000 ML IV SCH ×2 (05:20→06:45)
[2017-01-24] MEDS: INSULIN ASPART SUPPLEMENTAL SCALE SQ SCH ×5 (06:07→22:55)
[2017-01-24 06:28] LABS: AUTOMATED NEUTROPHIL # 3.9 TH/MM3 (1.8-7.7); BASOPHIL % 0.5 % (0.0-2.0); EOSINOPHIL # 0.2 TH/MM3 (0-0.4); EOSINOPHIL % 3.3 % (0.0-4.0); HEMATOCRIT 39.2 % (35.0-46.0); HEMO FLAGS DIFF FINAL; LYMPH % 34.4 % (9.0-44.0); LYMPHOCYTE # 2.3 TH/MM3 (1.0-4.8); MEAN CELL VOLUME 92.2 FL (80.0-100.0); MEAN CORPUSCULAR HEMOGLOBIN 32.7 PG (27.0-34.0); MEAN CORPUSCULAR HGB CONC 35.4 % (32.0-36.0); MONO % 6.6 % (0.0-8.0); NEUT % 55.2 % (16.0-70.0); PLATELET COUNT 156 TH/MM3 (150-450); RED BLOOD COUNT 4.25 MIL/MM3 (4.00-5.30); RED CELL DISTRIBUTION WIDTH 12.9 % (11.6-17.2); WHITE BLOOD COUNT 6.8 TH/MM3 (4.0-11.0)
[2017-01-24 08:14] LABS: ALKALINE PHOSPHATASE 60 U/L (45-117); ALT (GPT) 17 U/L (10-53); ANION GAP 8 MEQ/L (5-15); AST (GOT) 8 U/L (15-37); BICARBONATE 26.9 MEQ/L (21.0-32.0); BLOOD UREA NITROGEN 22 MG/DL (7-18); CHLORIDE 108 MEQ/L (98-107); GLOMERULAR FILTRATION RATE 60 ML/MIN (>89); POTASSIUM 4.1 MEQ/L (3.5-5.1); SODIUM (NA) 143 MEQ/L (136-145); TOTAL BILIRUBIN ADULT 0.5 MG/DL (0.2-1.0)
--- NOTE | 2017-01-24 08:14 | HHI.PR ---
Subjective History of Present Illness Patient feel better still have speech problem wants to go home MRI Brain noted s/p MRI of Brain with contrast shows stroke. d/w ABIGAIL Mayes at bed side. Review of Systems Constitutional Constitutional: Fatigue, Weakness Neurologic Neurologic Remarks Dysarthria, Vitals/Results Intake & Output 01/23/17 01/23/17 01/24/17 15:00 23:00 07:00 Intake Total 1040 ml 420 ml Balance 1040 ml 420 ml Intake Oral 1040 ml 420 ml # Voids 6 3 # Bowel Movements 1 1 Vital Signs Vital Signs Date Time Temp Pulse Resp B/P Pulse Ox O2 Delivery O2 Flow Rate FiO2 01/24/17 04:00 97.7 76 18 180/83 96 01/24/17 00:00 98.4 74 18 161/86 96 01/23/17 20:00 77 01/23/17 20:00 97.3 67 20 151/86 96 01/23/17 16:00 96.2 74 16 144/71 95 01/23/17 12:30 97.4 67 16 144/75 94 01/23/17 09:21 96.4 85 15 165/104 95 01/23/17 09:20 95 Nasal Cannula 2.00 CBC/BMP: 01/24/17 0610 01/22/17 2140 Lab Results Laboratory Tests Test 01/24/17 06:10 White Blood Count 6.8 TH/MM3 Red Blood Count 4.25 MIL/MM3 Hemoglobin 13.9 GM/DL Hematocrit 39.2 % Mean Corpuscular Volume 92.2 FL Mean Corpuscular Hemoglobin 32.7 PG Mean Corpuscular Hemoglobin 35.4 % Concent Red Cell Distribution Width 12.9 % Platelet Count 156 TH/MM3 Mean Platelet Volume 8.4 FL Neutrophils (%) (Auto) 55.2 % Lymphocytes (%) (Auto) 34.4 % Monocytes (%) (Auto) 6.6 % Eosinophils (%) (Auto) 3.3 % Basophils (%) (Auto) 0.5 % Neutrophils # (Auto) 3.9 TH/MM3 Lymphocytes # (Auto) 2.3 TH/MM3 Monocytes # (Auto) 0.4 TH/MM3 Eosinophils # (Auto) 0.2 TH/MM3 Basophils # (Auto) 0.0 TH/MM3 CBC Comment DIFF FINAL Differential Comment Physical Exam General General Appearance: Well Developed, Well Nourished, No Acute Distress, Comfortable Eyes Eye Exam: Sclera White, Extraocular Movement Intact Throat Throat Exam: Oral Mucosa [place] & Moist, Oral Pharynx Normal Neck Neck Exam: Neck Supple Pulmonary Resp Exam: Clear Bilaterally, Breath Sounds Equal, No Distress Cardiology CV Exam: Regular, Normal Sinus Rhythm Gastrointestinal/Abdomen GI Exam: Soft, Non-Tender, Bowel Sounds Present Integumentary Skin Exam: Clear, Warm, Dry, Intact Extremeties Extremities Exam: No Edema Neurologic Neuro Exam: Alert, Awake, Oriented, Moving All Extremities Neuro Remarks Dysarthria, Cranial nerve examination with subtle right facial weakness, slurred speech, intact speech content. Intact naming. Intact repetition. No dysphasic symptoms. Left cataract. Intact elevation of the uvula. Normal tongue, normal tongue movement. Intact facial sensation. Normal cerebellar signs, [id number], [id number]. Reflexes 2+ bilateral and symmetrical. Muscle strength 5/5 bilateral and symmetrical. No abnormal movement. Normal tone. Plantars are bilaterally downgoing, intact. intact gait. No ataxia. Psychiatric Psych Exam: Appropriate Responses VTE Prophylaxis VTE Prophylaxis Meds: Heparin PUD Prophylasis PUD Prophylaxis: Protonix Assessment/Plan Assessment/Plan ASSESSMENT AND PLAN 1. This is a 66-year-old female who came to the ER diagnosed with six-day history of right hand weakness as well as dysarthria, rule out stroke. A CT brain done shows three focal hypodensities in the high left fleming radiata which have feature suggesting lacunar infarct and there is a good mcallister-white matter differentiation on the CT. S/P MRA/MRI of the brain shows stroke..and carotid Doppler. Neurology input noted. Neuro check every 6 hours. The patient is on aspirin. The patient's blood pressure giving her permissible hypertension. Neuro checks every 6-hours. Further recommendations per patient progress. 2. History of hypertension. Continue home medication. + Clonidine 0.1 mg PO every 6 hrs PRN Hypertension. 3. History of anxiety. Continue with diazepam. 4. History of diabetes mellitus, most likely diet controlled. We will monitor blood sugar closely during hospital stay. 5. History of SVT. The patient does not have any tachycardia. 6. History of celiac disease. 7. DVT prophylaxis. Lovenox 40 mg subcutaneous daily. 8. GI prophylaxis. Protonix 40 mg p.o. daily. 9. Hypertriglyceridemia...started on Tricor. We are going to manage the patient on a daily basis and make recommendations on a daily basis. Discussed Condition with: Patient Quintin Templeton MD Jan 24, 2017 08:14
[2017-01-24] MEDS: ATENOLOL 50 MG TAB PO SCH (08:45)
[2017-01-24] MEDS ORDERED: DIAZEPAM 10 MG TAB PO PRN (08:45)
[2017-01-24] MEDS: SODIUM CHLORIDE 0.9% FLUSH 10 ML FLUSH IV FLUSH SCH ×2 (08:46→21:00)
[2017-01-24] MEDS: ASPIRIN 325 MG TAB PO SCH (08:46)
[2017-01-24] MEDS ORDERED: metFORMIN HCL 500 MG TAB PO SCH (09:00)
[2017-01-24] MEDS ORDERED: LOSARTAN 50 MG TAB PO SCH (09:00)
[2017-01-24 09:11] LABS: HDL CHOLESTEROL 25.4 MG/DL (40.0-60.0); LDL CHOLESTEROL 86 MG/DL (0-99)
[2017-01-24] MEDS ORDERED: GADODIAMIDE PF 287 MG/ML 5 ML VIAL (for RAD MRI) IV ONE (09:29)
[2017-01-24] MEDS: HYDROCHLOROTHIAZIDE 12.5 MG CAP PO SCH ×2 (10:03→22:50)
--- NOTE | 2017-01-24 10:19 | RADHPO ---
EXAM DATE/TIME: 01/24/2017 09:26 [facility] COMPARISON: MRI BRAIN W/O CONTRAST, January 23, 2017, 14:57. INDICATIONS : Stroke. Slurred speech. CONTRAST: 15 cc Omniscan (gadodiamide) IV MEDICAL HISTORY : Hypertension. Diabetes mellitus type 2. SURGICAL HISTORY : section. Left knee, right eye cataract and fibroid tumor removed. ENCOUNTER: Subsequent ACUITY: 2 day PAIN SCORE: 0/10 LOCATION: Head. TECHNIQUE: Multiplanar, multisequence MRI of the brain was performed both prior to and following the administrat ion of paramagnetic contrast. FINDINGS: Areas of signal abnormality in the high convexity left centrum semiovale an appearance most consisten t with ischemic insults. The largest lesion is notable for prominently restricted diffusion and dimin ished ADC without any associated contrast enhancement. This is presumably subacute. Smaller adjacent lesions are chronic in appearance. There is no evidence of brain mass or hemorrhage. Normal contrast enhancement is present in the intracranial vascular structures. No abnormal enhancement is noted. Ext racranial structures are stable, benign and intact. CONCLUSION: Abnormal findings in the left centrum semiovale most consistent with ischemic injuries of varying age kodi Wallis MD on January 24, 2017 at 10:02 Board Certified Radiologist. This report was verified electronically.
[2017-01-24] MEDS ORDERED: FENOFIBRATE 145 MG TAB PO SCH (18:45)
[2017-01-24] MEDS: cloNIDine HCL 0.1 MG TAB PO PRN (20:21)
--- NOTE | 2017-01-24 22:31 | HHI.PR ---
Review/Management Diagnosis - Acute/subacute infarct. Given the constellation of dysarthria and clumsy hands, this can be a lacunar infarction on left region of the brain, secondary to uncontrolled hypertension. - Hypertension. - Diabetes mellitus. Plan - Aspirin 81 mg daily. - Neurologic exam is improved and stable - Follow up with PCP for tight control of BP and blood sugar - Quite smoking - Weight reduction - Follow up with neurology as outpatient - Please call for questions Diagnosis/Plan: Subjective Subjective Comments No acute events reported MRI brain revealed an acute ischemic stroke at the left centrum semiovale CUS with no hemodynamically significant stenosis Cardiac ECHO was unremarkable Improvement in the neurologic clinical exam Active Medications Current Medications Medications (Trade) Dose Ordered Sig/Dylon Route Start Time Stop Time Status Last Admin (NS Flush) 2 ml BID IV FLUSH 01/23/17 09:00 (NS Flush) 2 ml UNSCH PRN IV FLUSH 01/23/17 00:45 (D50w (Vial) Inj) 25 ml UNSCH PRN IV PUSH 01/23/17 00:45 (Glucagon Inj) 1 mg UNSCH PRN IM/SQ 01/23/17 00:45 (Lovenox Inj) 40 mg Q24H SQ 01/23/17 00:45 01/24/17 01:54 (Aspirin) 325 mg DAILY PO 01/23/17 09:00 01/24/17 08:46 (Tenormin) 50 mg DAILY PO 01/23/17 09:00 01/24/17 08:45 (Valium) 10 mg HS PRN PO 01/24/17 08:45 01/24/17 20:21 (Microzide) 12.5 mg BID PO 01/24/17 09:00 01/24/17 10:03 (Cozaar) 50 mg DAILY PO 01/24/17 09:00 01/24/17 10:03 (Glucophage) 500 mg DAILY PO 01/24/17 09:00 01/24/17 10:03 (Catapres) 0.1 mg Q6H PRN PO 01/24/17 18:15 01/24/17 20:21 (Tricor) 145 mg DAILY PO 01/24/17 18:45 Allergies Allergies Coded Allergies No Known Allergies (Verified01/22/17) Exam I&O / VS 01/23/17 01/23/17 01/24/17 15:00 23:00 07:00 Intake Total 1040 ml 420 ml Balance 1040 ml 420 ml Intake Oral 1040 ml 420 ml # Voids 6 3 # Bowel Movements 1 1 Vital Signs Date Time Temp Pulse Resp B/P Pulse Ox O2 Delivery O2 Flow Rate FiO2 01/24/17 21:56 96.9 78 18 214/128 98 01/24/17 18:16 96.3 72 16 200/90 98 01/24/17 12:30 97.4 64 16 191/87 98 01/24/17 08:00 98.3 77 18 160/92 94 01/24/17 04:00 97.7 76 18 180/83 96 01/24/17 00:00 98.4 74 18 161/86 96 Exam Comments GENERAL: Well-developed, good historian, not in apparent distress, anxious. HEENT: Atraumatic, normocephalic. Intact hearing. Intact vision. NECK: Trachea in the midline. No JVD, no carotid bruits. CARDIOVASCULAR: Regular rate and rhythm. RESPIRATORY: Clear to auscultation. No wheezes. MUSCULOSKELETAL: No obvious deformity. No clubbing, no cyanosis, no edema. Moves all extremities equally. NEUROLOGICAL: Awake, alert and oriented to time, person and place. Intact memory. Cranial nerve examination with subtle right facial weakness, subtle slurred speech, intact speech content. Intact naming. Intact repetition. No dysphasic symptoms. Intact external ocular motility. Left cataract. Intact elevation of the uvula. Normal tongue, normal tongue movement. Intact facial sensation. Intact trapezius and sternocleidomastoid. Normal cerebellar signs, qicugm-[id number]-[id number], tzbi-[id number]-ufio. Reflexes 2+ bilateral and symmetrical. Muscle strength 5/5 bilateral and symmetrical. No abnormal movement. Normal tone. Plantars are bilaterally downgoing, intact. Intact stance, intact gait. No ataxia. PSYCHIATRIC: Appropriate mood and behavior. No hallucinations. Objective Radiology Results Last 72 hours Impressions Brain MRI 01/24/17 Signed Impressions: Service Date/Time: January 09:26 - CONCLUSION: Abnormal findings in the left centrum semiovale most consistent with ischemic injuries of varying ages. George Wallis MD Head Magnetic Resonance Angiography 01/23/17 0000 Signed Impressions: Service Date/Time: Monday, January 23, 2017 14:57 - CONCLUSION: Moderate asymmetric attenuation of the distal left internal carotid artery with correspondingly diminished left-sided anterior circulation flow related enhancement. The appearance may reflect intrinsic steno-occlusive disease, however inflow abnormality as potentially from proximal left carotid or carotid bifurcation disease should additionally be considered and screened for. George Wallis MD Carotid Artery Ultrasound 01/23/17 0000 Signed Impressions: Service Date/Time: Monday, January 23, 2017 10:37 - CONCLUSION: 1. Mild atherosclerotic plaquing at the carotid bifurcations. No hemodynamically significant carotid artery stenosis. Nikolas Stewart MD Brain MRI 01/23/17 0000 Signed Impressions: Service Date/Time: Monday, January 23, 2017 14:57 - CONCLUSION: 1. 1 cm diameter spherical focus of intense increased signal abnormality in the posterior left frontal lobe on the diffusion weighted images. Primary differential diagnosis is an acute lacunar infarct. However other conditions such as infection or tumor can occasionally give this appearance. Recommend further evaluation with MRI of the brain with contrast to assess for enhancement. There are 2 additional subcentimeter lesions in the left frontal lobe and one in the left parietal lobe that have much less signal abnormality on diffusion weighted images and could represent subacute infarcts or other lesions. These could also be evaluated on MRI with contrast. There is no mass effect or shift. No evidence for hemorrhage. No hydrocephalus. Carlton Early MD Head CT [id number]/22/[id number] Signed Impressions: Service Date/Time: Sunday, January 22, 2017 21:46 - CONCLUSION: There are 3 focal hypodensities in the high left fleming radiata which have features suggesting lacunar infarcts. However, the patient has acute symptoms including slurred speech. There is good mcallister-white matter differentiation. May consider performing an MRI for confirmation lacunar infarcts. Lionel Wood MD Chest X-Ray [id number]/22/[id number] Signed Impressions: Service Date/Time: Sunday, January 22, 2017 21:36 - CONCLUSION: The lungs are clear. Lionel Wodo MD Micro and Labs Laboratory Tests Test 01/24/17 06:10 White Blood Count 6.8 Red Blood Count 4.25 Hemoglobin 13.9 Hematocrit 39.2 Mean Corpuscular Volume 92.2 Mean Corpuscular Hemoglobin 32.7 Mean Corpuscular Hemoglobin 35.4 Concent Red Cell Distribution Width 12.9 Platelet Count 156 Mean Platelet Volume 8.4 Neutrophils (%) (Auto) 55.2 Lymphocytes (%) (Auto) 34.4 Monocytes (%) (Auto) 6.6 Eosinophils (%) (Auto) 3.3 Basophils (%) (Auto) 0.5 Neutrophils # (Auto) 3.9 Lymphocytes # (Auto) 2.3 Monocytes # (Auto) 0.4 Eosinophils # (Auto) 0.2 Basophils # (Auto) 0.0 CBC Comment DIFF FINAL Differential Comment Sodium Level 143 Potassium Level 4.1 Chloride Level 108 Carbon Dioxide Level 26.9 Anion Gap 8 Blood Urea Nitrogen 22 Creatinine 0.93 Estimat Glomerular Filtration 60 Rate Random Glucose 141 Calcium Level 8.4 Total Bilirubin 0.5 Aspartate Amino Transf 8 (AST/SGOT) Alanine Aminotransferase 17 (ALT/SGPT) Alkaline Phosphatase 60 Total Protein 6.3 Albumin 3.0 Triglycerides Level 329 Cholesterol Level 177 LDL Cholesterol 86 HDL Cholesterol 25.4 Cholesterol/HDL Ratio 6.96 Flaco Ross MD Jan 24, 2017 22:31 Flaco Ross MD Jan 24, 2017 22:31
[2017-01-25] VITALS: BP 164/81; PULSE 75; RESP 18; TEMP 99.1; O2SAT 97
[2017-01-25 04:00] VITALS: BP 180/84; PULSE 67; RESP 20; TEMP 97.6; O2SAT 96
[2017-01-25] MEDS: INSULIN ASPART SUPPLEMENTAL SCALE SQ SCH (05:49)
[2017-01-25 08:00] VITALS: BP 185/80; PULSE 77; RESP 18; TEMP 97.8; O2SAT 96
[2017-01-25] MEDS: HYDROCHLOROTHIAZIDE 12.5 MG CAP PO SCH (08:00)
[2017-01-25] MEDS: ASPIRIN 325 MG TAB PO SCH (08:00)
[2017-01-25] MEDS: cloNIDine HCL 0.1 MG TAB PO PRN (08:00)
[2017-01-25] MEDS ORDERED: METF500 PO (08:04)
[2017-01-25] MEDS ORDERED: FENO145T2 PO (08:04)
--- NOTE | 2017-01-25 08:05 | HHI.PR ---
Subjective History of Present Illness Patient feel better still have speech problem MRI Brain noted s/p MRI of Brain with contrast shows stroke. d/w RN Gerber at bed side...wants to go home ok to dc home today. Review of Systems Constitutional Constitutional: Fatigue, Weakness Neurologic Neurologic Remarks Dysarthria, Vitals/Results Intake & Output 01/24/17 01/24/17 01/25/17 15:00 23:00 07:00 Intake Total 1240 ml 1345 ml Balance 1240 ml 1345 ml Intake Oral 1240 ml 245 ml IV Total 1100 ml # Voids 6 4 # Bowel Movements 0 0 Vital Signs Vital Signs Date Time Temp Pulse Resp B/P Pulse Ox O2 Delivery O2 Flow Rate FiO2 01/25/17 04:00 97.6 67 20 180/84 96 01/25/17 00:00 99.1 75 18 164/81 97 01/24/17 22:00 84 01/24/17 21:56 96.9 78 18 214/128 98 01/24/17 18:16 96.3 72 16 200/90 98 01/24/17 12:30 97.4 64 16 191/87 98 CBC/BMP: 01/24/17 0610 01/24/17 0610 Physical Exam General General Appearance: Well Developed, Well Nourished, No Acute Distress, Comfortable Eyes Eye Exam: Sclera White, Extraocular Movement Intact Throat Throat Exam: Oral Mucosa Armorel & Moist, Oral Pharynx Normal Neck Neck Exam: Neck Supple Pulmonary Resp Exam: Clear Bilaterally, Breath Sounds Equal, No Distress Cardiology CV Exam: Regular, Normal Sinus Rhythm Gastrointestinal/Abdomen GI Exam: Soft, Non-Tender, Bowel Sounds Present Integumentary Skin Exam: Clear, Warm, Dry, Intact Extremeties Extremities Exam: No Edema Neurologic Neuro Exam: Alert, Awake, Oriented, Moving All Extremities Neuro Remarks Dysarthria, Cranial nerve examination with subtle right facial weakness, slurred speech, intact speech content. Intact naming. Intact repetition. No dysphasic symptoms. Left cataract. Intact elevation of the uvula. Normal tongue, normal tongue movement. Intact facial sensation. Normal cerebellar signs, [id number], [id number]. Reflexes 2+ bilateral and symmetrical. Muscle strength 5/5 bilateral and symmetrical. No abnormal movement. Normal tone. Plantars are bilaterally downgoing, intact. intact gait. No ataxia. Psychiatric Psych Exam: Appropriate Responses VTE Prophylaxis VTE Prophylaxis Meds: Heparin PUD Prophylasis PUD Prophylaxis: Protonix Assessment/Plan Assessment/Plan ASSESSMENT AND PLAN 1. This is a 66-year-old female who came to the ER diagnosed with six-day history of right hand weakness as well as dysarthria, rule out stroke. A CT brain done shows three focal hypodensities in the high left fleming radiata which have feature suggesting lacunar infarct and there is a good mcallister-white matter differentiation on the CT. S/P MRA/MRI of the brain shows stroke..and carotid Doppler. Neurology input noted. Neuro check every 6 hours. The patient is on aspirin. The patient's blood pressure giving her permissible hypertension. Neuro checks every 6-hours. Further recommendations per patient progress. 2. History of hypertension. Continue home medication. + Clonidine 0.1 mg PO every 6 hrs PRN Hypertension. 3. History of anxiety. Continue with diazepam. 4. History of diabetes mellitus, most likely diet controlled. We will monitor blood sugar closely during hospital stay. 5. History of SVT. The patient does not have any tachycardia. 6. History of celiac disease. 7. DVT prophylaxis. Lovenox 40 mg subcutaneous daily. 8. GI prophylaxis. Protonix 40 mg p.o. daily. 9. Hypertriglyceridemia... on Tricor. 10 New onset diabetes mellitis started on Metformin 500 mg PO Daily check blood glucose at home. wants to go home ok to dc home today. f/u with pcp/ neurology 1 week. diet cardic and ADA 1800 calories. condition at discharge good activity as tolerated. medicine see discharge medicine list. Discussed Condition with: Patient Quintin Templeton MD Jan 25, 2017 08:05
[2017-01-25 08:14] VITALS: BP 185/80
--- NOTE | 2017-02-12 13:46 | MD ---
cc: QUINTIN HICKEY MD ADMISSION DATE: 01/22/2017 DISCHARGE DATE: 01/25/2017 Okay to discharge the patient home. Condition at the time of discharge: Satisfactory. Activity: As tolerated. Diet: Cardiac diet. ALLERGIES No known drug allergies. DISCHARGE MEDICATIONS 1. Fenofibrate 145 mg p.o. daily. 2. Metformin 500 mg p.o. daily. 3. Aspirin 325 mg p.o. daily. 4. Atenolol 50 mg p.o. daily. 5. Diazepam 10 mg p.o. h.s. p.r.n. anxiety. 6. Hydrochlorothiazide 12.5 mg p.o. b.i.d. 7. Losartan 50 mg p.o. daily. 8. Benicar 40 mg p.o. daily. DISCHARGE FOLLOW-UP The patient was advised to follow-up with PCP and neurology in one week. ADMITTING DIAGNOSIS Right hand weakness as well as dysarthria which is totally resolved. The patient had a stroke. CT scan showed three focal hypodensities in the high left fleming radiata which have features suggesting lacunar infarcts. There is good mcallister-white matter differentiation. MRI/MRA of the brain showed the patient had a stroke. Carotid Doppler was done. HOSPITAL COURSE Neurology saw the patient during the hospital stay. The patient was started on aspirin 325 mg for stroke prevention, also started on Tricor 145 mg p.o. daily. The patient has a history of anxiety, hypertension, diabetes mellitus, SVT, history of celiac disease. The patient had new onset diabetes mellitus. The patient was given diabetic education and told about diabetes management. The patient was started on metformin 500 mg p.o. daily. The patient remained stable during the hospital stay. The patient's symptoms improved after treatment. The patient had triglycerides of 329 with a total protein of 6.3, albumin 3.0 and total cholesterol 177. The patient had a creatinine of 1.20, decreased down to 0.93. PT 10.4, INR 0.9, APTT 28.0. CBC was normal. CT head done shows three focal hypodensities in the high left fleming radiata which have features suggesting a lacunar infarct. However, the patient had acute symptoms including slurred speech. There was good mcallister-white matter differentiation. MRI of the brain done showed abnormal finding in the left centrum semiovale, most consistent with ischemic injury of various ages. Another MRI done showed a 1.1 cm diameter spherical focus of increased signal abnormality in the posterior left frontal lobe on the diffusion weighted images. Primary differential diagnosis is an acute lacunar infarct; however, other conditions such as infection or tumor can occasionally give this appearance. MRA of the head done showed moderate asymmetric attenuation of the distal left internal carotid artery with a correspondingly diminished left-sided anterior circulation flow related enhancement. The appearance may reflect intrinsic steno-occlusive disease; however, inflow abnormality as potentially from proximal left carotid or carotid bifurcation disease should additionally be considered and screened for. Patient advised to follow with PCP and neurology. Quintin Hickey MD EA/HEAVEN /11:17 AM /1:27 PM
== END 2017-01-25 08:42 | disposition home or self-care (01) ==
LOC: PHED 20:38 → PHEDA 23:13 → PH3A 01-23 01:51
PROVIDERS: ADMIT Family Medicine; ATTEND Family Medicine
DX: I63.9 Cerebral infarction, unspecified (principal); R47.1 Dysarthria and anarthria; R47.81 Slurred speech; G81.91 Hemiplegia, unspecified affecting right dominant side; I10 Essential (primary) hypertension; F41.9 Anxiety disorder, unspecified; E11.9 Type 2 diabetes mellitus without complications; F17.200 Nicotine dependence, unspecified, uncomplicated; Z79.82 Long term (current) use of aspirin
CPT/HCPCS: 70450; 70544; 70551; 70553; 71010; 80053; 80061; 82550; 82948; 83036; 83735; 84484; 85025; 85610; 85730; 92523; 92610; 93005; 93306; 93880; 97162; 97166; 97530; 99285; A9579; G0378; G8987; G8988; G8989; G8996; G8997; G8998; J1650; J7030; 76937

== ENCOUNTER → 2017-03-15 | Outpatient (CLI) | payer MEDICARE, OTHER ==
[~2017-03-15] MED LIST changes: +ASPI325T PO; -ATEN1TAB74 PO; +ATEN50TA PO; -BENI20TA25 PO; +BENI40TA3 PO; +DIAZ10TA PO; +FENO145T2 PO; +HYDR12.56 PO; +LOSA50TA PO; +METF500 PO
[2017-03-15 12:05] LABS: AUTOMATED NEUTROPHIL # 5.7 TH/MM3 (1.8-7.7); BASOPHIL # 0.1 TH/MM3 (0-0.2); EOSINOPHIL # 0.4 TH/MM3 (0-0.4); EOSINOPHIL % 4.2 % (0.0-4.0); HEMATOCRIT 40.8 % (35.0-46.0); HEMO FLAGS DIFF FINAL; LYMPH % 27.2 % (9.0-44.0); LYMPHOCYTE # 2.5 TH/MM3 (1.0-4.8); MEAN CELL VOLUME 92.8 FL (80.0-100.0); MEAN CORPUSCULAR HEMOGLOBIN 32.2 PG (27.0-34.0); MEAN CORPUSCULAR HGB CONC 34.7 % (32.0-36.0); MONO % 6.4 % (0.0-8.0); NEUT % 61.2 % (16.0-70.0); PLATELET COUNT 225 TH/MM3 (150-450); RED BLOOD COUNT 4.39 MIL/MM3 (4.00-5.30); RED CELL DISTRIBUTION WIDTH 13.7 % (11.6-17.2); WHITE BLOOD COUNT 9.4 TH/MM3 (4.0-11.0)
[2017-03-15 12:07] LABS: URINE TOTAL PROTEIN TIMED 28.9 MG/DL
[2017-03-15 12:26] LABS: BICARBONATE 26.4 MEQ/L (21.0-32.0); POTASSIUM 3.6 MEQ/L (3.5-5.1)
== END ==
LOC: PLAB 08:12
PROVIDERS: ATTEND Internal Medicine Nephrology
DX: N18.3 Chronic kidney disease, stage 3 (moderate) (principal)
CPT/HCPCS: 36415; 80069; 85025; 86335

== ENCOUNTER 2017-05-20 11:57 | Inpatient (IN) | payer MEDICARE, OTHER ==
[~2017-05-20] VITALS: Ht 165.1 cm; Wt 68.9 kg
[2017-05-20] VITALS (8 sets, daily range): BP systolic 134–190; BP diastolic 61–77; PULSE 62–79; RESP 18–20; TEMP 97.4–97.8; O2SAT 95–99
[2017-05-20] MEDS ORDERED: SODIUM CHLORIDE 0.9% FLUSH 10 ML FLUSH IVF PRN (12:15)
[2017-05-20] MEDS ORDERED: SODIUM CHLOR 0.9% 1000 ML INJ 1,000 ML IV ONE (12:15)
[2017-05-20 12:46] LABS: AUTOMATED NEUTROPHIL # 9.8 TH/MM3 (1.8-7.7); BASOPHIL # 0.1 TH/MM3 (0-0.2); BASOPHIL % 0.7 % (0.0-2.0); EOSINOPHIL # 0.1 TH/MM3 (0-0.4); EOSINOPHIL % 1.1 % (0.0-4.0); HEMATOCRIT 43.5 % (35.0-46.0); HEMO FLAGS DIFF FINAL; LYMPH % 18.1 % (9.0-44.0); LYMPHOCYTE # 2.4 TH/MM3 (1.0-4.8); MEAN CELL VOLUME 94.6 FL (80.0-100.0); MEAN CORPUSCULAR HEMOGLOBIN 32.2 PG (27.0-34.0); MONO % 6.7 % (0.0-8.0); NEUT % 73.4 % (16.0-70.0); PLATELET COUNT 244 TH/MM3 (150-450); RED CELL DISTRIBUTION WIDTH 13.8 % (11.6-17.2); WHITE BLOOD COUNT 13.3 TH/MM3 (4.0-11.0)
[2017-05-20 12:53] LABS: BLOOD, URINE NEG (NEG); COMMENT (UR) CATH-CULT NOT IND; CULTURE IF INDICATED CATH CULTURE NOT IND; GLUCOSE,URINE NEG (NEG); HYALINE CAST, URINE 2 /lpf (RARE); KETONE, URINE 40 mg/dL (NEG); MUCUS URINE FEW /lpf (OCC); NITRITE,URINE NEG (NEG); PH, URINE 5.5 (5.0-8.5); URINE COLOR YELLOW (YELLW/STRAW)
[2017-05-20 12:54] LABS: APTT (PATIENT) 25.9 SEC (24.3-30.1); PROTHROMBIN TIME - PATIENT 11.4 SEC (9.8-11.6)
--- NOTE | 2017-05-20 12:55 | RADRPT ---
EXAM DATE/TIME: 05/20/2017 12:34 [facility] COMPARISON: CHEST SINGLE AP, January 22, 2017, 21:36. INDICATIONS : Syncope. Possible stroke. MEDICAL HISTORY : Hypertension. Diabetes mellitus type 2. SURGICAL HISTORY : section. Left knee, right eye cataract and fibroid tumor removed. ENCOUNTER: Initial ACUITY: 1 day PAIN SCORE: Non-responsive. LOCATION: Bilateral chest FINDINGS: A single view of the chest demonstrates the lungs to be symmetrically aerated without evidence of mas s, infiltrate or effusion. The cardiomediastinal contours are unremarkable. Osseous structures are intact. CONCLUSION: Normal examination. Lionel Kam Jr., MD on May 20, 2017 at 12:52 Board Certified Radiologist. This report was verified electronically.
--- NOTE | 2017-05-20 13:00 | RADRPT ---
EXAM DATE/TIME: 05/20/2017 12:24 [facility] COMPARISON: MRI BRAIN W & W/O CONTRAST, January 24, 2017, 9:26. CT BRAIN W/O CONTRAST, January 22, 2017, 21:46. INDICATIONS : Altered mental status; right side weakness. RADIATION DOSE: 56.35 CTDIvol (mGy) MEDICAL HISTORY : Hypertension. SURGICAL HISTORY : Fibroid removed. ENCOUNTER: Initial ACUITY: 1 day PAIN SCALE: 0/10 LOCATION: cranial TECHNIQUE: Multiple contiguous axial images were obtained of the head. Using automated exposure control and adj ustment of the mA and/or kV according to patient size, radiation dose was kept as low as reasonably a chievable to obtain optimal diagnostic quality images. DICOM format image data is available electro nically for review and comparison. FINDINGS: There is cytotoxic edema involving the left frontoparietal junction watershed distribution not presen t previously measures 3.6 cm in size without hemorrhage or mass effect. CONCLUSION: Findings are characteristic of acute infarction left frontoparietal junction without hemo rrhage or mass effect. Nereida Le MD on May 20, 2017 at 12:56 Board Certified Radiologist. This report was verified electronically.
[2017-05-20 13:03] LABS: ALT (GPT) 20 U/L (10-53)
[2017-05-20 13:10] LABS: ALKALINE PHOSPHATASE 78 U/L (45-117); ANION GAP 13 MEQ/L (5-15); AST (GOT) 35 U/L (15-37); BICARBONATE 23.4 MEQ/L (21.0-32.0); BLOOD UREA NITROGEN 27 MG/DL (7-18); CHLORIDE 105 MEQ/L (98-107); CREATINE KINASE 179 U/L (26-192); GLOMERULAR FILTRATION RATE 49 ML/MIN (>89); SODIUM (NA) 141 MEQ/L (136-145); TOTAL BILIRUBIN ADULT 0.9 MG/DL (0.2-1.0)
[2017-05-20 13:12] LABS: AMPHETAMINE, URINE NEG (NEG); BARBITURATES, URINE NEG (NEG); COCAINE, URINE NEG (NEG)
[2017-05-20 13:17] LABS: POTASSIUM 4.6 MEQ/L (3.5-5.1)
[2017-05-20] MEDS ORDERED: LOSA100T PO (14:54)
[2017-05-20] MEDS ORDERED: NAPR220C22 PO (14:54)
[2017-05-20] MEDS ORDERED: LABE100T2 PO (14:54)
[2017-05-20] MEDS ORDERED: HYDR50TA3 PO (14:54)
[2017-05-20] MEDS ORDERED: ATEN100T PO (14:54)
[2017-05-20] MEDS ORDERED: DOXA1TAB35 PO (14:54)
[2017-05-20] MEDS ORDERED: ACTI260C PO (14:54)
[2017-05-20] MEDS ORDERED: CLON0.2T PO (14:54)
--- NOTE | 2017-05-20 15:00 | PD ---
HPI Chief Complaint: Neuro Symptoms/ Deficits Time Seen by Provider: 12:04 Travel History International Travel<30 days: No Contact w/Intl Traveler<30days: No Traveled to known affect area: No History of Present Illness HPI Is a 66-year-old woman who presents to the emergency department after being found down in the ground. Apparently the police were in her neighborhood for some other reason and saw her lying in the yard. EMS was called. She was found with dense right sided hemiparesis. She is unable to give any additional history. Unclear how long she had been down. A neighbor said that they thought that she had some had a mini stroke several months ago. Her medications include medicine for diabetes and hypertension. History Past Medical History Narrative Medical Diabetes Hypertension History of previous strokes Medical History: Unable to Obtain Tetanus Vaccination: Unknown Influenza Vaccination: No Menopausal: Yes Past Surgical History Surgical History: Unable to Obtain Social History Alcohol Use: No Tobacco Use: Yes (1/2 PACK PER DAY 15 YEARS) Allergies-Medications (Allergen,Severity, Reaction): Coded Allergies: No Known Allergies (Verified , 01/22/17) Reported Meds & Prescriptions Reported Meds & Active Scripts Active Glucophage (Metformin HCl) 500 Mg Tab 500 Mg PO DAILY Reported Doxazosin (Doxazosin Mesylate) 2 Mg Tab 2 Mg PO HS Aleve (Naproxen Sodium) 220 Mg Capsule 220-440 Mg PO BID PRN Labetalol (Labetalol HCl) 100 Mg Tab 100 Mg PO BID Activated Vegetable Charcoal (Charcoal Activated) 260 Mg Cap 280 Mg PO BID PRN Clonidine (Clonidine HCl) 0.2 Mg Tab 0.2 Mg PO TID Hydrochlorothiazide 50 Mg Tab 50 Mg PO DAILY Losartan (Losartan Potassium) 100 Mg Tab 100 Mg PO DAILY Atenolol 100 Mg Tab 100 Mg PO DAILY Diazepam 10 Mg Tab 10 Mg PO HS PRN Aspirin 325 Mg Tab 325 Mg PO DAILY Review of Systems Except as stated in HPI: all other systems reviewed are Neg Physical Exam Narrative GENERAL: Well-appearing 66-year-old woman, ill, with right sided flaccid paresis. SKIN: Focused skin assessment warm/dry. HEAD: Atraumatic. Normocephalic. EYES: Pupils equal and round. No scleral icterus. No injection or drainage. ENT: No nasal bleeding or discharge. Mucous membranes pink and moist. No obvious facial paresis. NECK: Trachea midline. No JVD. CARDIOVASCULAR: Regular rate and rhythm. No murmur appreciated. RESPIRATORY: No accessory muscle use. Clear to auscultation. Breath sounds equal bilaterally. GASTROINTESTINAL: Abdomen soft, non-tender, nondistended. Hepatic and splenic margins not palpable. MUSCULOSKELETAL: No obvious deformities. Flaccid right sided paresis. Little bit of movement in the proximal lower extremity tonsils. NEUROLOGICAL: Awake and alert. No obvious cranial nerve deficits. Flaccid paresis of the right. Minimal movement on the right lower extremity. Sensation appears to be intact. Marked aphasia. Data Data Last Documented VS Vital Signs Date Time Temp Pulse Resp B/P Pulse Ox O2 Delivery O2 Flow Rate FiO2 05/20/17 14:30 77 18 162/73 98 Room Air 05/20/17 12:47 97.8 Orders Electrocardiogram (05/20/17 12:04) Prothrombin Time / Inr (Pt) (05/20/17 12:04) Act Partial Throm Time (Ptt) (05/20/17 12:04) Complete Blood Count With Diff (05/20/17 12:04) Comprehensive Metabolic Panel (05/20/17 12:04) Creatine Kinase (Cpk) (05/20/17 12:04) Drug Screen, Random Urine (05/20/17 12:04) Troponin I (05/20/17 12:04) Urinalysis - C+S If Indicated (05/20/17 12:04) Ct Brain W/O Iv Contrast(Rout) (05/20/17 12:04) Chest, Single Ap (05/20/17 12:04) Ecg Monitoring (05/20/17 12:04) Iv Access Insert/Monitor (05/20/17 12:04) Oximetry (05/20/17 12:04) Blood Glucose (05/20/17 12:04) Sodium Chloride 0.9% Flush (Ns Flush) (05/20/17 12:15) Sodium Chlor 0.9% 1000 Ml Inj (Ns 1000 M (05/20/17 12:15) Admit Order (Ed Use Only) (05/20/17 ) Labs Laboratory Tests Test 05/20/17 05/20/17 12:20 12:35 White Blood Count 13.3 TH/MM3 Red Blood Count 4.60 MIL/MM3 Hemoglobin 14.8 GM/DL Hematocrit 43.5 % Mean Corpuscular Volume 94.6 FL Mean Corpuscular Hemoglobin 32.2 PG Mean Corpuscular Hemoglobin 34.0 % Concent Red Cell Distribution Width 13.8 % Platelet Count 244 TH/MM3 Mean Platelet Volume 8.3 FL Neutrophils (%) (Auto) 73.4 % Lymphocytes (%) (Auto) 18.1 % Monocytes (%) (Auto) 6.7 % Eosinophils (%) (Auto) 1.1 % Basophils (%) (Auto) 0.7 % Neutrophils # (Auto) 9.8 TH/MM3 Lymphocytes # (Auto) 2.4 TH/MM3 Monocytes # (Auto) 0.9 TH/MM3 Eosinophils # (Auto) 0.1 TH/MM3 Basophils # (Auto) 0.1 TH/MM3 CBC Comment DIFF FINAL Differential Comment Prothrombin Time 11.4 SEC Prothromb Time International 1.0 RATIO Ratio Activated Partial 25.9 SEC Thromboplast Time Sodium Level 141 MEQ/L Potassium Level 4.6 MEQ/L Chloride Level 105 MEQ/L Carbon Dioxide Level 23.4 MEQ/L Anion Gap 13 MEQ/L Blood Urea Nitrogen 27 MG/DL Creatinine 1.11 MG/DL Estimat Glomerular Filtration 49 ML/MIN Rate Random Glucose 137 MG/DL Calcium Level 9.6 MG/DL Total Bilirubin 0.9 MG/DL Aspartate Amino Transf 35 U/L (AST/SGOT) Alanine Aminotransferase 20 U/L (ALT/SGPT) Alkaline Phosphatase 78 U/L Total Creatine Kinase 179 U/L Troponin I LESS THAN 0.02 NG/ML Total Protein 8.3 GM/DL Albumin 4.0 GM/DL Urine Color YELLOW Urine Turbidity CLEAR Urine pH 5.5 Urine Specific [place] 1.029 Urine Protein 30 mg/dL Urine Glucose (UA) NEG mg/dL Urine Ketones 40 mg/dL Urine Occult Blood NEG Urine Nitrite NEG Urine Bilirubin NEG Urine Urobilinogen 2.0 MG/DL Urine Leukocyte Esterase NEG Urine RBC 1 /hpf Urine WBC 1 /hpf Urine Hyaline Casts 2 /lpf Urine Mucus FEW /lpf Microscopic Urinalysis Comment CATH-CULT NOT IND Urine Opiates Screen NEG Urine Barbiturates Screen NEG Urine Amphetamines Screen NEG Urine Benzodiazepines Screen POS Urine Cocaine Screen NEG Urine Cannabinoids Screen NEG MDM Medical Decision Making Medical Screen Exam Complete: Yes Emergency Medical Condition: Yes Interpretation(s) My review of EKG: Normal sinus rhythm at a rate of 68, leftward axis, normal intervals, some nonspecific lateral ST changes. No definite evidence of acute ischemia. LABS: CBC remarkable for white count of 13.3 thousand CMP is remarkable for mildly elevated BUN/creatinine Troponin negative Total protein 8.3 Coags unremarkable. Urine drugs positive for benzodiazepines UA unremarkable Head CT characteristic of acute infarct in the left frontal parietal junction without hemorrhage or mass effect. Chest x-ray negative. Differential Diagnosis Stroke, bleed, seizure, or other Narrative Course Medical decision making This 66-year-old woman presents to the emergency department after being found down with symptoms of acute stroke. CT scan confirms acute stroke. Patient be admitted to the hospital for further evaluation. Diagnosis Primary Impression: Stroke Admitting Information Admitting Physician Requests: Admit Cesar Green MD May 20, 2017 15:00
[2017-05-20] MEDS ORDERED: ONDANSETRON HCL 4 MG/2 ML VIAL IVP PRN (16:30)
[2017-05-20] MEDS ORDERED: LACTULOSE SYRUP 20 GM/30 ML CUP PO PRN (16:30)
[2017-05-20] MEDS ORDERED: BISACODYL 10 MG SUPP RECTAL PRN (16:30)
[2017-05-20] MEDS ORDERED: SODIUM CHLORIDE 0.9% FLUSH 10 ML FLUSH IV FLUSH PRN (16:30)
[2017-05-20] MEDS ORDERED: NALOXONE HCL 0.4 MG/ML AMP IV PRN (16:30)
[2017-05-20] MEDS ORDERED: MAGNESIUM HYDROXIDE SUSP 30 ML CUP PO PRN (16:30)
[2017-05-20] MEDS ORDERED: SENNOSIDES 8.6 MG TAB PO PRN (16:30)
[2017-05-20] MEDS: SODIUM CHLOR 0.45% 1000 ML INJ 1,000 ML IV SCH (17:21)
[2017-05-20] MEDS: HEPARIN SODIUM - SQ 10,000 UNITS/ML VIAL SQ SCH (18:41)
[2017-05-20] MEDS ORDERED: DEXAMETHASONE SOD PHOS 4 MG/ML VIAL IV PUSH ONE (20:15)
--- NOTE | 2017-05-20 20:16 | HHI.HP ---
History of Present Illness Service INTERNAL MEDICINE Primary Care Physician WILFRED MARTIN MD Admission Diagnosis ACUTE CEREBRAL VASCULAR ACCIDENT Diagnoses: History of Present Illness This patient is a 66 year old female who has a report of being found with minimal responsiveness by police apparently by accident. They were in the neighborhood for another reason and saw her lying on the ground. Emergency services was called and she was found to have a dense right sided plegia. She was transported to the [facility] Emergency Room by emergency services. Evaluation in the emergency room has revealed an acute cerebral vascular accident for the left fronto-parietal distribution. She is admitted to the hospital in this regard. Review of Systems ROS Limitations: Altered Mental Status (She is unable to reliably answer questions for this information at this time.) Past Family Social History Allergies: Coded Allergies: No Known Allergies (Verified , 01/22/17) Past Medical History 1. Hypertension. 2. Diabetes Mellitus, Type 2. 3. Paroxysmal Supraventricular Tachycardia. 4. Osteoarthritis. 5. Insomnia. 6. Fibromyalgia Syndrome. 7. Smoking. 8. Gout. 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 10. Anxiety Disorder. Past Surgical History 1. Uterine Fibroid Removal in 1970. 2. Ovarian Cyst Removal in 1980. 3. Section in 1983. Reported Medications 1. Aspirin 325mg daily. 2. Atenolol 50mg daily. 3. Benicar 40mg daily. 4. Diazepam 10mg daily at bedtime, as needed. 5. Fenofibrate 145mg daily. 6. Hydrochlorothiazide 12.5mg twice a day. 7. Losartan 50mg daily. 8. Metformin 500mg daily. Family History Father has a history of Celiac Disease and Gluten Allergy as well as Prostate Cancer. Mother has a history of Seizure Disorder and Dementia. Two Sisters in their 50's and are reportedly in good health. She has a son who is in good health. Social History She was born in [place], [place] and is educated through a bachelors degree in Education. 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 She is . There is a history of no alcohol intake and no use of recreational drugs. She is a smoker of one half pack of cigarettes daily for just over 30 years. Physical Exam Vital Signs Vital Signs Date Time Temp Pulse Resp B/P Pulse Ox O2 Delivery O2 Flow Rate FiO2 05/20/17 18:30 97.4 72 20 179/77 98 05/20/17 17:00 65 18 190/74 99 Room Air 05/20/17 15:30 62 18 168/72 99 Room Air 05/20/17 14:30 77 18 162/73 98 Room Air 05/20/17 12:47 98 Room Air 05/20/17 12:47 65 18 99 Room Air 05/20/17 12:47 97.8 65 18 134/61 98 Room Air 05/20/17 12:42 97.8 65 18 134/61 97 Physical Exam GENERAL: This is a well-nourished, well-developed patient, in no apparent distress. SKIN: No rashes, ecchymoses or lesions. The skin is warm and dry. HEAD: Atraumatic. Normocephalic. No temporal or scalp tenderness. EYES: Pupils equal round and reactive. Extraocular motions intact. No scleral icterus. No injection or drainage. ENT: Nose without bleeding, purulent drainage or septal hematoma. Throat without erythema, tonsillar hypertrophy or exudate. Uvula midline. Airway patent. The gag reflex is sluggish. The tongue is with slight right deviation on protrusion. NECK: Trachea midline. No JVD, carotid bruits, thyromegaly, masses or lymphadenopathy. Supple, nontender, no meningeal signs. CARDIOVASCULAR: Regular rate and rhythm without murmurs, gallops, or rubs. RESPIRATORY: Clear to auscultation. Breath sounds equal bilaterally. No wheezes , rales, or rhonchi. GASTROINTESTINAL: Abdomen soft, non-tender, nondistended. No hepato-splenomegaly , or palpable masses. No guarding. MUSCULOSKELETAL: Extremities without clubbing, cyanosis, or edema. No joint tenderness, effusion, or edema noted. No calf tenderness. Negative Homans sign bilaterally. There is no use of the right upper or lower limbs. NEUROLOGICAL: Awake and alert. She appears to know who I am and that she is in the hospital by answering slowly "YES" and "NO" to question for such. Cranial nerves II through XII intact. There is 5/5 muscle strength for the left upper and lower limbs. The right upper and right lower limbs have 0/5 strength testing for the muscle groups. Very slow speech that appears to be somewhat limited. Laboratory Laboratory Tests Test 05/20/17 05/20/17 12:20 12:35 White Blood Count 13.3 Red Blood Count 4.60 Hemoglobin 14.8 Hematocrit 43.5 Mean Corpuscular Volume 94.6 Mean Corpuscular Hemoglobin 32.2 Mean Corpuscular Hemoglobin 34.0 Concent Red Cell Distribution Width 13.8 Platelet Count 244 Mean Platelet Volume 8.3 Neutrophils (%) (Auto) 73.4 Lymphocytes (%) (Auto) 18.1 Monocytes (%) (Auto) 6.7 Eosinophils (%) (Auto) 1.1 Basophils (%) (Auto) 0.7 Neutrophils # (Auto) 9.8 Lymphocytes # (Auto) 2.4 Monocytes # (Auto) 0.9 Eosinophils # (Auto) 0.1 Basophils # (Auto) 0.1 CBC Comment DIFF FINAL Differential Comment Prothrombin Time 11.4 Prothromb Time International 1.0 Ratio Activated Partial 25.9 Thromboplast Time Sodium Level 141 Potassium Level 4.6 Chloride Level 105 Carbon Dioxide Level 23.4 Anion Gap 13 Blood Urea Nitrogen 27 Creatinine 1.11 Estimat Glomerular Filtration 49 Rate Random Glucose 137 Calcium Level 9.6 Total Bilirubin 0.9 Aspartate Amino Transf 35 (AST/SGOT) Alanine Aminotransferase 20 (ALT/SGPT) Alkaline Phosphatase 78 Total Creatine Kinase 179 Troponin I LESS THAN 0.02 Total Protein 8.3 Albumin 4.0 Urine Color YELLOW Urine Turbidity CLEAR Urine pH 5.5 Urine Specific [place] 1.029 Urine Protein 30 Urine Glucose (UA) NEG Urine Ketones 40 Urine Occult Blood NEG Urine Nitrite NEG Urine Bilirubin NEG Urine Urobilinogen 2.0 Urine Leukocyte Esterase NEG Urine RBC 1 Urine WBC 1 Urine Hyaline Casts 2 Urine Mucus FEW Microscopic Urinalysis Comment CATH-CULT NOT IND Urine Opiates Screen NEG Urine Barbiturates Screen NEG Urine Amphetamines Screen NEG Urine Benzodiazepines Screen POS Urine Cocaine Screen NEG Urine Cannabinoids Screen NEG Result Diagram: 05/20/17 1220 05/20/17 1220 Assessment and Plan Assessment and Plan ASSESSMENT 1. Acute Left Fronto-Parietal Cerebral Vascular Accident 2. Right Hemiplegia. 3. Aphasia. 4. Episodic Accelerated Hypertension. 5. Diabetes Mellitus, Type 2. 6. Hyperlipidemia. 7. Paroxysmal Supraventricular Tachycardia. 8. Smoking. 9. Anxiety Disorder. PLAN 1. Admit to the hospital as an Inpatient. 2. N. P. O. status. 3. Consultation to Neurology. 4. Subcutaneous anticoagulation. 5. Close neuro checks. 6. Close blood pressure monitoring. 7. Follow up imaging studies. 8. Follow up laboratory assessment. 9. DVT and PUD prophylaxis. Wilfred Martin MD May 20, 2017 20:16
[2017-05-20] MEDS ORDERED: GLUCAGON 1 MG/ML VIAL OTHER PRN (20:30)
[2017-05-20] MEDS ORDERED: DEXTROSE 50% IN WATER 50 ML VIAL(D50) IV PRN (20:30)
[2017-05-20] MEDS: SODIUM CHLORIDE 0.9% FLUSH 10 ML FLUSH IV FLUSH SCH (20:51)
[2017-05-20] MEDS: DOCUSATE SODIUM 50 MG/SENNA 8.6 MG TAB PO SCH (21:00)
[2017-05-20] MEDS: INSULIN ASPART SUPPLEMENTAL SCALE SQ SCH (22:15)
[2017-05-21] VITALS (13 sets, daily range): BP systolic 114–227; BP diastolic 71–95; PULSE 67–116; RESP 17–22; TEMP 97.4–98.3; O2SAT 93–96
[2017-05-21] MEDS: HEPARIN SODIUM - SQ 10,000 UNITS/ML VIAL SQ SCH ×2 (02:30→12:35)
[2017-05-21] MEDS ORDERED: DEXAMETHASONE SOD PHOS 4 MG/ML VIAL IV PUSH ONE ×2 (02:30→10:30)
[2017-05-21] MEDS: INSULIN ASPART SUPPLEMENTAL SCALE SQ SCH ×4 (06:00→21:00)
[2017-05-21] MEDS: SODIUM CHLOR 0.45% 1000 ML INJ 1,000 ML IV SCH (07:27)
[2017-05-21] MEDS: SODIUM CHLORIDE 0.9% FLUSH 10 ML FLUSH IV FLUSH SCH ×2 (07:27→21:00)
[2017-05-21] MEDS: DOCUSATE SODIUM 50 MG/SENNA 8.6 MG TAB PO SCH ×2 (09:20→21:00)
[2017-05-21 10:39] LABS: AUTOMATED NEUTROPHIL # 8.6 TH/MM3 (1.8-7.7); BASOPHIL # 0.1 TH/MM3 (0-0.2); BASOPHIL % 0.6 % (0.0-2.0); EOSINOPHIL % 0.1 % (0.0-4.0); HEMATOCRIT 42.4 % (35.0-46.0); HEMO FLAGS DIFF FINAL; LYMPH % 11.5 % (9.0-44.0); LYMPHOCYTE # 1.2 TH/MM3 (1.0-4.8); MEAN CELL VOLUME 93.3 FL (80.0-100.0); MEAN CORPUSCULAR HEMOGLOBIN 32.6 PG (27.0-34.0); MEAN CORPUSCULAR HGB CONC 34.9 % (32.0-36.0); MONO % 2.5 % (0.0-8.0); NEUT % 85.3 % (16.0-70.0); PLATELET COUNT 232 TH/MM3 (150-450); RED BLOOD COUNT 4.54 MIL/MM3 (4.00-5.30); RED CELL DISTRIBUTION WIDTH 13.6 % (11.6-17.2); WHITE BLOOD COUNT 10.1 TH/MM3 (4.0-11.0)
[2017-05-21 10:50] LABS: ALT (GPT) 21 U/L (10-53); ANION GAP 13 MEQ/L (5-15); AST (GOT) 20 U/L (15-37); BICARBONATE 21.3 MEQ/L (21.0-32.0); BLOOD UREA NITROGEN 26 MG/DL (7-18); CHLORIDE 107 MEQ/L (98-107); GLOMERULAR FILTRATION RATE 54 ML/MIN (>89); POTASSIUM 3.8 MEQ/L (3.5-5.1); SODIUM (NA) 141 MEQ/L (136-145)
[2017-05-21 10:52] LABS: ALKALINE PHOSPHATASE 74 U/L (45-117); TOTAL BILIRUBIN ADULT 0.6 MG/DL (0.2-1.0)
--- NOTE | 2017-05-21 10:57 | RADRPT ---
EXAM DATE/TIME: 05/21/2017 10:33 [facility] COMPARISON: CT BRAIN W/O CONTRAST, May 20, 2017, 12:24. INDICATIONS : Altered mental status. RADIATION DOSE: 56.35 CTDIvol (mGy) MEDICAL HISTORY : Cardiovascular disease. Cerebrovascular disease. SURGICAL HISTORY : None. ENCOUNTER: Initial ACUITY: 1 day PAIN SCALE: Non-responsive LOCATION: cranial TECHNIQUE: Multiple contiguous axial images were obtained of the head. Using automated exposure control and adj ustment of the mA and/or kV according to patient size, radiation dose was kept as low as reasonably a chievable to obtain optimal diagnostic quality images. DICOM format image data is available electro nically for review and comparison. FINDINGS: There is an evolving infarct in left MCA distribution not significantly changed from May 20. White m atter ischemic changes present. No new mass or hemorrhage. No significant midline shift. No acute bon y abnormalities. CONCLUSION: 1. Evolving infarct left MCA distribution. No new findings. Carlton Early MD on May 21, 2017 at 10:50 Board Certified Radiologist. This report was verified electronically.
[2017-05-21] MEDS: SODIUM CHLOR 0.9% 1000 ML INJ 1,000 ML IV SCH (11:05)
[2017-05-21] MEDS ORDERED: SODIUM CHLORIDE 0.9% FLUSH 5 ML FLUSH IV FLUSH PRN (11:15)
[2017-05-21] MEDS ORDERED: DEXTROSE 50% IN WATER 50 ML VIAL(D50) IV PUSH PRN (11:15)
[2017-05-21] MEDS ORDERED: GLUCAGON 1 MG/ML VIAL OTHER PRN (11:15)
[2017-05-21 11:17] LABS: THYROXINE (T4) 11.3 MCG/DL (4.8-13.9)
--- NOTE | 2017-05-21 11:38 | MB ---
cc: ODIN HARTMAN M.D. DATE OF CONSULTATION 05/21/2017 REASON FOR CONSULTATION Stroke HISTORY OF PRESENT ILLNESS Mrs. Rodríguez is a 66-year-old woman who was found with a decreased level of responsiveness who came into the ER last night and was found to have a right hemiparesis. CT scan revealed a large left MCA non-hemorrhagic stroke. PAST MEDICAL HISTORY She had a previous history of: 1. Stroke in January of this year. He has slurred speech, right-sided weakness. 2. History of fibroid tumor removal. 3. Appendectomy 4. Cataract surgery MEDICATIONS ON ADMISSION 1. Doxazosin 2. Aleve 3. Labetalol 4. Charcoal 5. Clonidine 6. HCTZ 7. Losartan 8. Atenolol 9. Diazepam 10. Aspirin 325 mg daily ALLERGIES None known PAST MEDICAL HISTORY 1. Hypertension 2. Diabetes NEUROLOGIC EXAMINATION Blood pressure 194/90, pulse 116, temperature 97.9 degrees. Higher cortical functions, she is alert. She has a global aphasia. She had difficulty expressing words. She has difficulty following commands. She cannot repeat simple phrases. Pupils are equal and reactive. The extraocular movements are intact. She has a right upper motor neuron VII palsy. She has a dense right hemiplegia with 0/5 strength right arm and right leg. At the present time, she is moving the left side normally. Reflexes are symmetric. CT of the brain shows a large area of infarction in the left MCA territory with no hemorrhage. I compared this with a CT scan and MRI done last January. At that time, she had small strokes in the left frontal area. This is clearly an increase in size. The patient did have some changes today with decreased level of consciousness. Repeat CT of the brain done today is unchanged from yesterday's study. LABORATORY DATA White count 10,100, hemoglobin 14.8, hematocrit 42.4%, platelet count 232,000. Sodium is 141, potassium 3.8, chloride 107, CO2 21.3 the BUN is 26, creatinine 1.03, GFR is 54, glucose 156, AST 20, ALT is 21. The PT 11.4, INR 1, APTT 25.9. Tox screen positive for benzodiazepines otherwise negative. Urinalysis pH is 5.5, specific gravity 1.029, protein is 30. Her EKG is sinus rhythm. IMPRESSION Recurrent left MCA distribution stroke. Stroke at this time is fairly large involving much of the MCA territory with global aphasia and right hemiplegia. The patient has been having waxing and waning mental status which may be a result of the relative large infarction. Other possibilities include focal seizures. A recurrent TIA is also a possibility. Her CT scan done on repeat today was with no other changes other than the large left MCA stroke. RECOMMENDATIONS We will start aspirin rectally 300 mg daily. We will get a CT angiogram of the brain and the carotids stat. Also an MRI of the brain. Continue to monitor the patient to be sure she does not have intermittent atrial fibrillation. I will also repeat her echocardiogram. MD CAR Mariano/EUGENIO /11:08 AM /11:23 AM
[2017-05-21] MEDS ORDERED: IOHEXOL 350 MG/ML 10 ML VIAL (for RAD DIAG) IV ONE (12:17)
--- NOTE | 2017-05-21 12:29 | RADRPT ---
EXAM DATE/TIME: 05/21/2017 11:18 [facility] COMPARISON: No previous studies available for comparison. INDICATIONS : Cerebrovascular accident. IV CONTRAST: 70 cc Omnipaque 350 (iohexol) IV ; Cumulative dose for multiple exams. RADIATION DOSE: 28.34 CTDIvol (mGy) MEDICAL HISTORY : Cardiovascular disease. SURGICAL HISTORY : None. ENCOUNTER: Initial ACUITY: 1 day PAIN SCALE: Non-responsive LOCATION: cranial TECHNIQUE: Volumetric scanning was performed using a multi-row detector CT scanner. The data was post processed with a variety of visualization algorithms including full volume maximum intensity projection, multi -planar sliding thin slab reformation, curved planar reformation, and surface rendering techniques. Using automated exposure control and adjustment of the mA and/or kV according to patient size, radiat ion dose was kept as low as reasonably achievable to obtain optimal diagnostic quality images. DICO M format image data is available electronically for review and comparison. FINDINGS: The left internal carotid artery is occluded at its origin. Right internal carotid artery is patent. The anterior and posterior cerebral arteries are patent. There is some diminished blood flow and maria luz kristy in the left middle cerebral artery relative to the right which could be related to the carotid oc clusion. The left middle cerebral artery perfuses via patent communicating arteries anteriorly and po steriorly. No discrete filling defect identified. There is an evolving infarct in the left MCA distri bution. CONCLUSION: 1. 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 Vertebral artery and basilar artery and right internal carotid artery patent. 2. Decrease in caliber of left middle cerebral artery relative to the right probably related to carot id artery occlusion on the left. Left middle cerebral artery fills via patent communicating arteries. Carlton Early MD on May 21, 2017 at 12:16 Board Certified Radiologist. This report was verified electronically.
[2017-05-21] MEDS: levETIRAcetam INJ 500 MG in SODIUM CHLORIDE 0.9% INJ 100 ML IV SCH (12:37)
[2017-05-21] MEDS: ASPIRIN 300 MG SUPP RECTAL SCH (12:37)
--- NOTE | 2017-05-21 12:44 | RADRPT ---
EXAM DATE/TIME: 05/21/2017 11:18 [facility] COMPARISON: No previous studies available for comparison. INDICATIONS : Cerebrovascular accident. IV CONTRAST: 70 cc Omnipaque 350 (iohexol) IV ; Cumulative dose for multiple exams. RADIATION DOSE: 28.34 CTDIvol (mGy) ; Combined studies MEDICAL HISTORY : Cardiovascular disease. SURGICAL HISTORY : None. ENCOUNTER: Initial ACUITY: 1 day PAIN SCALE: Non-responsive LOCATION: neck Elevated flow velocities and ICA/CCA ratios have been found to correlate with increased degrees of vessel stenosis, calculated as percentage of diameter relative to a normal segment of distal ICA/CCA. TECHNIQUE: Volumetric scanning was performed using a multirow detector CT scanner. The data was post processed with a variety of visualization algorithms including full-volume maximum intensity projection, multip lanar sliding thin-slab reformation, curved-planar reformation, and surface-rendering techniques. Us ing automated exposure control and adjustment of the mA and/or kV according to patient size, radiatio n dose was kept as low as reasonably achievable to obtain optimal diagnostic quality images. DICOM f ormat image data is available electronically for review and comparison. FINDINGS: Great vessel origins are patent. Both common carotid arteries are patent There is an occlusion of the left internal carotid artery at its origin. There is a mild stenosis of the proximal right internal carotid artery. Mid and distal right internal carotid artery are patent. Both vertebral arteries are patent in the neck. Basal artery is patent. CONCLUSION: 1. Occlusion of the left internal carotid artery at its origin. 2. Mild stenosis proximal right internal carotid artery. 3. Common carotid arteries and great vessel origins are patent. Carlton Early MD on May 21, 2017 at 12:39 Board Certified Radiologist. This report was verified electronically.
--- NOTE | 2017-05-21 12:54 | HHI.PR ---
Subjective Remarks She has had a major change in her status. She is now with some deficits for the left side of her body. She is now transferred to the Critical Care Unit. Neurology has seen her with the orders noted for further assessment of her status. She is able to show some simple responses, but not as specific as compared to yesterday. Her blood pressure appears to be higher today. Objective - Vital Signs Date Time Temp Pulse Resp B/P Pulse Ox O2 Delivery O2 Flow Rate FiO2 05/21/17 10:38 116 194/90 96 05/21/17 09:55 114 203/92 96 05/21/17 07:28 97.9 72 19 168/72 94 05/21/17 05:01 98.1 76 18 114/76 96 05/21/17 00:32 97.6 73 19 157/71 93 05/20/17 21:00 79 05/20/17 20:11 97.6 77 20 138/62 95 05/20/17 18:30 97.4 72 20 179/77 98 05/20/17 17:00 65 18 190/74 99 Room Air 05/20/17 15:30 62 18 168/72 99 Room Air 05/20/17 14:30 77 18 162/73 98 Room Air I/O 05/20/17 05/20/17 05/20/17 05/21/17 05/21/17 05/21/17 07:00 15:00 23:00 07:00 15:00 23:00 Intake Total 79 ml 920 ml Output Total 250 ml Balance 79 ml -250 ml 920 ml Intake IV Total 79 ml 920 ml Output Urine Total 250 ml # Voids 1 Result Diagram: 05/21/17 1004 05/21/17 1004 Objective Remarks GENERAL: The patient is alert. She appears responsive, but somewhat sluggish in her response. SKIN: Supple to exam. It is warm and dry. HEAD: Atraumatic and normocephalic. EYES: Pupils appear equal and reactive to light. No scleral icterus. No injection or drainage. THROAT: The oropharynx is clear. The gag is sluggish. Tongue has a deviation to the right upon protrusion. NECK: Supple, trachea midline. No JVD or lymphadenopathy. CARDIOVASCULAR: Regular rate and rhythm without murmurs, gallops, or rubs. RESPIRATORY: Breath sounds equal bilaterally. No accessory muscle use. GASTROINTESTINAL: Abdomen soft, non-tender, nondistended. Bowel sounds are normal. MUSCULOSKELETAL: There is flaccid appearance to the right upper and lower limbs. There is new decreased strength testing for the left upper limb at 3/5 and the left lower limb at 1-2/5. Pulses are at 3+/4+. No cyanosis, or edema. BACK: Nontender without obvious deformity. No CVA tenderness. NEUROLOGICAL: The deficits are as described in the Musculoskeletal exam. Speech is pressured and simple responses of "yes" and "no". A/P Assessment and Plan ASSESSMENT 1. Acute Left Fronto-Parietal Cerebral Vascular Accident with Possible Extention. 2. Right Hemiplegia with New Left Sided Paresis. 3. Aphasia. 4. Episodic Accelerated Hypertension. 5. Diabetes Mellitus, Type 2. 6. Hyperlipidemia. 7. Paroxysmal Supraventricular Tachycardia. 8. Smoking. 9. Anxiety Disorder. PLAN 1. Re-assessment of neuro status with further imaging. 2. Continue on N. P. O. status. 3. Neurology follows. 4. Subcutaneous anticoagulation. 5. Close neuro checks. 6. Close blood pressure monitoring. 7. Speech Therapy evaluation. 8. Follow up laboratory assessment. 9. DVT and PUD prophylaxis. Wilfred Martin MD May 21, 2017 12:54
--- NOTE | 2017-05-21 14:19 | RADRPT ---
EXAM DATE/TIME: 05/21/2017 13:15 [facility] COMPARISON: MRI BRAIN W/O CONTRAST, May 21, 2017, 13:15. CTA BRAIN W 3D RECON, May 21, 2017, 11:18. CTA C AROTID ARTERIES W 3D RECON, May 21, 2017, 11:18. MRA BRAIN W/O CONTRAST, January 23, 2017, 14:57. INDICATIONS : Right sided weakness with aphasia. MEDICAL HISTORY : Diabetes mellitus type 2. Hypertension. SURGICAL HISTORY : Hysterectomy. section. Appendectomy. ENCOUNTER: Subsequent ACUITY: 2 day PAIN SCORE: 0/10 LOCATION: cranial Please note a normal MRA of the brain does not entirely exclude the possibility of a small aneurysm, nor the possibility of distal intracranial vessel disease. TECHNIQUE: 3D time of flight MRA was performed. Source images, multiplanar STS MIP, and 3D volume MIP reconstru ctions were reviewed. FINDINGS: Anterior circulation: There is no flow-related enhancement visualized within the left internal carotid artery. However, the patient has known chronic occlusion of the left internal carotid artery. On the left, there is a pat ent posterior communicating artery with minimal flow related enhancement within a few middle cerebral artery branches, however significantly decreased since the prior exam. There is flow-related enhance ment within the left anterior cerebral artery. The right internal carotid artery, anterior cerebral a rtery, and right middle cerebral artery are within normal limits. Posterior circulation: There are patent posterior cerebral arteries bilaterally. Vertebral arteries are codominant. The basi lar artery and posterior cerebral arteries demonstrate no significant stenosis or abnormality. No ane urysm is visualized. CONCLUSION: 1. Chronic occlusion of the left internal carotid artery with worsening flow-related enhancement visu alized within the left middle cerebral artery branches. 2. There is a patent left posterior communicating artery which is likely supplying a small amount of retrograde flow into some of the middle cerebral artery branches. The left ZOILA also demonstrates flow . CTA may better assess patency and blood flow within the left circulation. 3. Posterior circulation and anterior right circulation are within normal limits. George Jensen MD on May 21, 2017 at 14:10 Board Certified Radiologist. This report was verified electronically.
--- NOTE | 2017-05-21 15:05 | EKG ---
Date Performed: 05/20/2017 Time Performed: 12:21:49 PTAGE: 66 years EKG: Sinus rhythm POSSIBLE ANTERIOR MYOCARDIAL INFARCTION T wave inversion improved from prior tracing BORDERLINE ECG INTERPRETATION BASED ON A DEFAULT AGE OF 40 YEARS PREVIOUS TRACING : 01/22/2017 21.09 DOCTOR: Jakob Lyles Interpretating Date/Time 05/21/2017 15:04:37
[2017-05-21] MEDS ORDERED: INSULIN ASPART SUPPLEMENTAL SCALE SQ SCH (16:00)
--- NOTE | 2017-05-21 16:05 | RADRPT ---
EXAM DATE/TIME: 05/21/2017 13:15 [facility] COMPARISON: CT BRAIN W/O CONTRAST, May 21, 2017, 10:33. INDICATIONS : Right sided weakness with aphasia. MEDICAL HISTORY : Hypertension. Diabetes mellitus type 2. Stroke SURGICAL HISTORY : Hysterectomy. section. Appendectomy. ovarian cyst ENCOUNTER: Subsequent ACUITY: 2 day PAIN SCORE: 0/10 LOCATION: cranial TECHNIQUE: Multiplanar, multisequence MRI of the brain was performed without contrast. FINDINGS: There is a multifocal infarct in the left MCA distribution involving large portions of the MCA distri bution. There is localized sulcal effacement but without significant mass effect or midline shift. No right-sided infarcts are identified. No hydrocephalus. No abnormal extra-axial fluid. CONCLUSION: 1. Multifocal infarcts in the left MCA distribution, subacute in nature. No midline shift. Several ti ny areas of low signal on susceptibility weighted images are characteristic of tiny petechial hemorrh ages. Carlton Early MD on May 21, 2017 at 15:58 Board Certified Radiologist. This report was verified electronically.
[2017-05-21] MEDS ORDERED: LABETALOL HCL 100 MG/20 ML VIAL IV PRN (16:30)
--- NOTE | 2017-05-21 16:30 | MG ---
cc: ODIN HARTMAN M.D. Lab No: [id number] Date: 05/21/2017 Age: Sex: F Race: TECHNIQUE 17 channel EEG. DESCRIPTION The background activity reveals generalized slowing which is slower over the left hemisphere in the theta range compared with the right hemisphere. There is some superimposed beta activity which is probably medication effect. There are no epileptiform discharges present over the right hemisphere later there is a normal alpha rhythm but the tracing is still slow over the left hemisphere. There does appear to be sleep spindles which are normal sleep architecture. Photic results in a modest driving response which again is asymmetric more prominent over the right hemisphere. INTERPRETATION Abnormal study, there is focal slowing over the left hemisphere which is consistent with a known diagnosis of stroke in that area but no seizure activity identified. MD CAR Mariano/joseph /3:32 PM /3:59 PM
[2017-05-21] MEDS ORDERED: SODIUM CHLORIDE 0.9% FLUSH 5 ML FLUSH IV FLUSH SCH (21:00)
[2017-05-21 22:19] LABS: HEMOGLOBIN A1a 1.5 %; HEMOGLOBIN Ao 82.4 %; HEMOGLOBIN F 1.7 %; HEMOGLOBIN LA1C 2.2 %; HEMOGLOBIN P3 5.7 %
[2017-05-22] VITALS (10 sets, daily range): BP systolic 128–180; BP diastolic 72–82; PULSE 53–94; RESP 14–21; TEMP 97.5–98.6; O2SAT 95–97
[2017-05-22] MEDS: SODIUM CHLOR 0.9% 1000 ML INJ 1,000 ML IV SCH (01:23)
[2017-05-22 05:35] LABS: AUTOMATED NEUTROPHIL # 12.6 TH/MM3 (1.8-7.7); BASOPHIL % 0.3 % (0.0-2.0); EOSINOPHIL % 0.1 % (0.0-4.0); HEMATOCRIT 41.6 % (35.0-46.0); HEMO FLAGS DIFF FINAL; LYMPH % 12.2 % (9.0-44.0); LYMPHOCYTE # 1.9 TH/MM3 (1.0-4.8); MEAN CELL VOLUME 92.7 FL (80.0-100.0); MEAN CORPUSCULAR HEMOGLOBIN 32.8 PG (27.0-34.0); MEAN CORPUSCULAR HGB CONC 35.4 % (32.0-36.0); MONO % 5.3 % (0.0-8.0); NEUT % 82.1 % (16.0-70.0); PLATELET COUNT 218 TH/MM3 (150-450); RED BLOOD COUNT 4.49 MIL/MM3 (4.00-5.30); RED CELL DISTRIBUTION WIDTH 13.1 % (11.6-17.2); WHITE BLOOD COUNT 15.4 TH/MM3 (4.0-11.0)
[2017-05-22 05:40] LABS: ANION GAP 12 MEQ/L (5-15); BICARBONATE 22.5 MEQ/L (21.0-32.0); BLOOD UREA NITROGEN 28 MG/DL (7-18); CHLORIDE 109 MEQ/L (98-107); GLOMERULAR FILTRATION RATE 67 ML/MIN (>89); MAGNESIUM 2.1 MG/DL (1.5-2.5); POTASSIUM 3.6 MEQ/L (3.5-5.1); SODIUM (NA) 143 MEQ/L (136-145)
[2017-05-22 06:09] LABS: HDL CHOLESTEROL 33.8 MG/DL (40.0-60.0); LDL CHOLESTEROL 135 MG/DL (0-99)
[2017-05-22] MEDS: INSULIN ASPART SUPPLEMENTAL SCALE SQ SCH ×4 (07:00→21:45)
--- NOTE | 2017-05-22 08:36 | HHI.PR ---
Subjective Remarks She is lying in bed and appears more alert and responsive this morning. She is also able to move the left limbs better today. Her speech is still somewhat garbled. There is the presentation of some understanding of some statements made to her that are simple. She does not appear to be in any distress. Speech therapy is to see her today. Objective - Vital Signs Date Time Temp Pulse Resp B/P Pulse Ox O2 Delivery O2 Flow Rate FiO2 05/22/17 07:07 96 21 05/22/17 06:00 64 05/22/17 04:00 74 05/22/17 04:00 98.6 74 18 180/77 97 05/22/17 02:00 82 05/22/17 00:00 74 05/22/17 00:00 97.5 94 21 128/73 97 05/21/17 22:00 68 05/21/17 20:34 96 05/21/17 20:00 78 05/21/17 20:00 97.4 78 20 227/95 95 05/21/17 18:00 67 05/21/17 16:00 78 05/21/17 16:00 98.1 70 22 200/82 95 05/21/17 14:00 80 05/21/17 12:35 98.3 80 17 190/82 96 05/21/17 12:00 78 05/21/17 10:38 116 194/90 96 05/21/17 09:55 114 203/92 96 I/O 05/21/17 05/21/17 05/21/17 05/22/17 05/22/17 05/22/17 07:00 15:00 23:00 07:00 15:00 23:00 Intake Total 920 ml Output Total 250 ml 375 ml Balance -250 ml 545 ml Intake IV Total 920 ml Output Urine Total 250 ml 375 ml # Voids 1 # Bowel Movements 0 Result Diagram: 05/22/1744005/22/17440 Objective Remarks GENERAL: More alert this morning. SKIN: Warm and dry. HEAD: Normocephalic. Atraumatic. EYES: No scleral icterus. No injection or drainage. THROAT: The oropharynx is clear. Tongue still has some deviation to the right when protruded. NECK: Supple, trachea midline. No JVD or lymphadenopathy. CARDIOVASCULAR: Regular rate and rhythm without murmurs, gallops, or rubs. RESPIRATORY: Breath sounds equal bilaterally. No accessory muscle use. GASTROINTESTINAL: Abdomen soft, non-tender, nondistended. MUSCULOSKELETAL: Strength is 0/5 for the RUE, 2/5 for the RLE, 5/5 for the LUE and 2-3/5 for the LLE. Pulses are at 3+/4+. There is no cyanosis or edema. BACK: Nontender without obvious deformity. No CVA tenderness. NEUROLOGICAL: As noted for the musculoskeletal exam. Speech is garbled, except for simple or one word responses. A/P Assessment and Plan ASSESSMENT 1. 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 2. Right Hemiplegia with some Left Hemiparesis. 3. Aphasia. 4. Episodic Accelerated Hypertension. 5. Diabetes Mellitus, Type 2. 6. Hyperlipidemia. 7. Paroxysmal Supraventricular Tachycardia. 8. Smoking. 9. Anxiety Disorder. PLAN 1. 2. Continue on N. P. O. status. 3. Neurology follows. 4. Subcutaneous anticoagulation discontinued. 5. Close neuro checks. 6. Close blood pressure monitoring. 7. Speech Therapy still to see her. 8. Follow up laboratory assessment. 9. DVT and PUD prophylaxis. Wilfred Martin MD May 22, 2017 08:36
[2017-05-22] MEDS: SODIUM CHLORIDE 0.9% FLUSH 10 ML FLUSH IV FLUSH SCH ×2 (09:00→21:00)
[2017-05-22] MEDS: DEXT 5%-NACL 0.9% 1000 ML INJ 1,000 ML IV SCH ×2 (09:00→21:45)
[2017-05-22] MEDS: DOCUSATE SODIUM 50 MG/SENNA 8.6 MG TAB PO SCH ×2 (09:00→21:44)
[2017-05-22] MEDS: ASPIRIN 300 MG SUPP RECTAL SCH (09:09)
[2017-05-22] MEDS: levETIRAcetam INJ 500 MG in SODIUM CHLORIDE 0.9% INJ 100 ML IV SCH ×3 (11:49)
--- NOTE | 2017-05-22 17:03 | PD.CONS ---
[facility] Service Rehabilitation Medicine Consult Requested By Figueroa Hernández MD Reason for Consult Comprehensive rehabilitation evaluation. Primary Care Physician Wilfred Martin MD History of Present Illness Pam Rodríguez is a 66-year-old [id number] female admitted [facility] 05/20/17 after being found unresponsive with right sided weakness. Head CT showed left frontoparietal junction infarct. Brain MRI 05/21/17 showed multifocal subacute infarcts in the left MCA distribution with several tiny areas of petechial hemorrhage. CTA showed occlusion of the left internal carotid near the origin with decreased caliber of the left MCA related to carotid occlusion. She's been started on aspirin per neurology recommendations. EEG showed no seizure activity Review of Systems ROS Limitations: Speech Impaired Respiratory: DENIES: Shortness of breath Cardiovascular: DENIES: Chest pain Gastrointestinal: DENIES: Abdominal pain Neurologic: COMPLAINS OF: Localized weakness, Speech Problems Past Family Social History Allergies: Coded Allergies: No Known Allergies (Verified , 01/22/17) Past Medical History Previous stroke January 2017 with right sided weakness and slurred speech Hypertension Diabetes mellitus PSVT Osteoarthritis Insomnia Gout Fibromyalgia Anxiety Villonodular synovitis left knee Past Surgical History Uterine fibroid removal Ovarian cyst removal Current Medications Current Medications Medications (Trade) Dose Ordered Sig/Dylon Route Start Time Stop Time Status Last Admin (NS Flush) 2 ml UNSCH PRN IV FLUSH 05/20/17 16:30 (NS Flush) 2 ml BID IV FLUSH 05/20/17 21:00 05/22/17 09:00 (Zofran Inj) 4 mg Q6H PRN IVP 05/20/17 16:30 (Narcan Inj) 0.4 mg UNSCH PRN IV 05/20/17 16:30 (Aleah-Colace) 1 tab BID PO 05/20/17 21:00 (Milk Of Magnesia Liq) 30 ml Q12H PRN PO 05/20/17 16:30 (Senokot) 17.2 mg Q12H PRN PO 05/20/17 16:30 (Dulcolax Supp) 10 mg DAILY PRN RECTAL 05/20/17 16:30 (Lactulose Liq) 30 ml DAILY PRN PO 05/20/17 16:30 (D50w (Vial) Inj) 50 ml UNSCH PRN IV 05/20/17 20:30 (Glucagon Inj) 1 mg UNSCH PRN OTHER 05/20/17 20:30 (Vasotec Inj) 2.5 mg Q6H PRN IV PUSH 05/21/17 10:30 Aspirin 300 mg 300 mg DAILY RECTAL 05/21/17 11:15 05/22/17 09:09 (Keppra Inj/NS Inj) 105 ml @ 420 mls/hr Q12H IV 05/21/17 12:00 05/22/17 11:49 Labetalol HCl 10 mg 10 mg Q4H PRN IV 05/21/17 16:30 (D5W-NS 1000 ml Inj) 1,000 ml @ 80 mls/hr [id number] IV 05/22/17 09:00 05/22/17 09:00 Family History Mother: Seizure disorder, dementia Social History Prior to admission patient lived alone in [place], [place]. She has a sister who lives locally and a friend to assist at discharge. Exam I&O / VS 05/21/17 05/21/17 05/22/17 15:00 23:00 07:00 Intake Total 920 ml Output Total 375 ml Balance 545 ml Intake IV Total 920 ml Output Urine Total 375 ml # Bowel Movements 0 Vital Signs Date Time Temp Pulse Resp B/P Pulse Ox O2 Delivery O2 Flow Rate FiO2 05/22/17 16:00 97.8 63 20 167/72 97 05/22/17 10:23 98.2 69 19 169/82 95 05/22/17 09:00 97.6 53 17 150/81 96 05/22/17 09:00 53 05/22/17 08:00 64 05/22/17 07:07 96 21 05/22/17 06:00 64 05/22/17 04:00 74 05/22/17 04:00 98.6 74 18 180/77 97 05/22/17 02:00 82 05/22/17 00:00 74 05/22/17 00:00 97.5 94 21 128/73 97 05/21/17 22:00 68 05/21/17 20:34 96 05/21/17 20:00 78 05/21/17 20:00 97.4 78 20 227/95 95 05/21/17 18:00 67 General: No acute distress, Other (Son at bedside. Visiting from [place]) Respiratory: Lungs CTA, Non-labored respirations, BS equal Gastrointestinal: Positive Bowel Sounds, Non-Distended, Non-Tender Cardiovascular: Normal rate, Normal peripheral perfusion, Regular Rhythm Skin: Other (no rash noted) Musculoskeletal: Swelling (none and lower extremities) Psychiatric: Cooperative Orientation: oriented to Self, unable to asses Place, unable to asses Time, unable to asses Situation Neurologic: Pupils, EOM, Facial Symmetry (right facial droop), Speech (aphasic but some automatic speech) Motor: Right Upper Extremity (0/5 and tone is flaccid), Left Upper Extremity (5 /5), Right Lower Extremity (hip extension 1/5 remainder 0/5), Left Lower Extremity (5/5) Sensory Difficult to assess due to aphasia but appears to be present but impaired in the right upper lower extremity DTRs: Normal Babinski: Positive (equivocal right) Clonus: Negative Assessment and Plan Diagnosis: (1) Left middle cerebral artery stroke (2) Hemiparesis of right dominant side (3) Aphasia Assessment 1. Left middle cerebral artery stroke with right hemiparesis and aphasia 2. Impaired mobility and ADLs due to the above 3. Previous stroke January 2017 with right sided weakness and slurred speech 4. Hypertension 5. Diabetes mellitus 6. PSVT 7. Osteoarthritis 8. Insomnia 9. Gout 10. Fibromyalgia 11. Anxiety Plan 1. Speech therapy has evaluated swallow and tolerating mechanical soft diet with thin liquids. Speech language cognition evaluation requested 2. Physical therapy consult to to begin to mobilize 3. Occupational therapy for ADLs 4. Anticipate the patient will need ongoing inpatient rehabilitation at discharge. Case management has begun referral process 5. SCDs for DVT prophylaxis and place 6. Will follow while hospitalized and at discharge Thank you for this consult Fiona Godoy MD May 22, 2017 17:03
--- NOTE | 2017-05-22 20:26 | HHI.PR ---
Review/Management Diagnosis left MCA cva with small petechial hemorrhage on MRI Plan repeat CT brain. Diagnosis/Plan: Subjective Subjective Comments No acute events reported Has been more lethargic Active Medications Current Medications Medications (Trade) Dose Ordered Sig/Dylon Route Start Time Stop Time Status Last Admin (NS Flush) 2 ml UNSCH PRN IV FLUSH 05/20/17 16:30 (NS Flush) 2 ml BID IV FLUSH 05/20/17 21:00 05/22/17 09:00 (Zofran Inj) 4 mg Q6H PRN IVP 05/20/17 16:30 (Narcan Inj) 0.4 mg UNSCH PRN IV 05/20/17 16:30 (Aleah-Colace) 1 tab BID PO 05/20/17 21:00 (Milk Of Magnesia Liq) 30 ml Q12H PRN PO 05/20/17 16:30 (Senokot) 17.2 mg Q12H PRN PO 05/20/17 16:30 (Dulcolax Supp) 10 mg DAILY PRN RECTAL 05/20/17 16:30 (Lactulose Liq) 30 ml DAILY PRN PO 05/20/17 16:30 (D50w (Vial) Inj) 50 ml UNSCH PRN IV 05/20/17 20:30 (Glucagon Inj) 1 mg UNSCH PRN OTHER 05/20/17 20:30 (Vasotec Inj) 2.5 mg Q6H PRN IV PUSH 05/21/17 10:30 Aspirin 300 mg 300 mg DAILY RECTAL 05/21/17 11:15 05/22/17 09:09 (Keppra Inj/NS Inj) 105 ml @ 420 mls/hr Q12H IV 05/21/17 12:00 05/22/17 11:49 Labetalol HCl 10 mg 10 mg Q4H PRN IV 05/21/17 16:30 (D5W-NS 1000 ml Inj) 1,000 ml @ 80 mls/hr [id number] IV 05/22/17 09:00 05/22/17 09:00 Allergies Allergies Coded Allergies No Known Allergies (Verified01/22/17) Exam I&O / VS 05/21/17 05/21/17 05/22/17 15:00 23:00 07:00 Intake Total 920 ml Output Total 375 ml Balance 545 ml Intake IV Total 920 ml Output Urine Total 375 ml # Bowel Movements 0 Vital Signs Date Time Temp Pulse Resp B/P Pulse Ox O2 Delivery O2 Flow Rate FiO2 05/22/17 16:00 97.8 63 20 167/72 97 05/22/17 10:23 98.2 69 19 169/82 95 05/22/17 09:00 97.6 53 17 150/81 96 05/22/17 09:00 53 05/22/17 08:00 64 05/22/17 07:07 96 21 05/22/17 06:00 64 05/22/17 04:00 74 05/22/17 04:00 98.6 74 18 180/77 97 05/22/17 02:00 82 05/22/17 00:00 74 05/22/17 00:00 97.5 94 21 128/73 97 05/21/17 22:00 68 05/21/17 20:34 96 Respiratory: Lungs CTA, Non-labored respirations, BS equal Cardiology: Normal rate, Normal peripheral perfusion, Regular Rhythm Musculoskeletal: Swelling (none and lower extremities) Exam Comments lethargic. difficult to arouse PERRL generalized weakness Objective Micro and Labs Laboratory Tests Test 05/22/17 04:41 White Blood Count 15.4 Red Blood Count 4.49 Hemoglobin 14.7 Hematocrit 41.6 Mean Corpuscular Volume 92.7 Mean Corpuscular Hemoglobin 32.8 Mean Corpuscular Hemoglobin 35.4 Concent Red Cell Distribution Width 13.1 Platelet Count 218 Mean Platelet Volume 8.9 Neutrophils (%) (Auto) 82.1 Lymphocytes (%) (Auto) 12.2 Monocytes (%) (Auto) 5.3 Eosinophils (%) (Auto) 0.1 Basophils (%) (Auto) 0.3 Neutrophils # (Auto) 12.6 Lymphocytes # (Auto) 1.9 Monocytes # (Auto) 0.8 Eosinophils # (Auto) 0.0 Basophils # (Auto) 0.0 CBC Comment DIFF FINAL Differential Comment Sodium Level 143 Potassium Level 3.6 Chloride Level 109 Carbon Dioxide Level 22.5 Anion Gap 12 Blood Urea Nitrogen 28 Creatinine 0.85 Estimat Glomerular Filtration 67 Rate Random Glucose 112 Calcium Level 8.6 Magnesium Level 2.1 Triglycerides Level 209 Cholesterol Level 211 LDL Cholesterol 135 HDL Cholesterol 33.8 Cholesterol/HDL Ratio 6.24 Vitamin B12 Level 646 Folate GREATER THAN 20.0 Figueroa Hernández PhD May 22, 2017 20:26
--- NOTE | 2017-05-22 23:17 | RADRPT ---
EXAM DATE/TIME: 05/22/2017 22:43 [place] COMPARISON: MRI BRAIN W/O CONTRAST, May 21, 2017, 13:15. MRI BRAIN W & W/O CONTRAST, January 24, 2017, 9:26. CT BRAIN W/O CONTRAST, May 20, 2017, 12:24. CT BRAIN W/O CONTRAST, May 21, 2017, 10:33. INDICATIONS : Cerebrovascular accident. RADIATION DOSE: 47.76 CTDIvol (mGy) MEDICAL HISTORY : Cerebrovascular disease. Hypertension. Diabetes. SURGICAL HISTORY : None. ENCOUNTER: Subsequent ACUITY: 2 days PAIN SCALE: 0/10 LOCATION: cranial TECHNIQUE: Multiple contiguous axial images were obtained of the head. Using automated exposure control and adj ustment of the mA and/or kV according to patient size, radiation dose was kept as low as reasonably a chievable to obtain optimal diagnostic quality images. DICOM format image data is available electro nically for review and comparison. FINDINGS: Patient's head is canted in the gantry creating asymmetry. CEREBRUM: Prominent area of encephalomalacia in the anterior sylvian region on the left side is similar appeara nce to prior CT scan and characteristic of subacute nonhemorrhagic infarction. No new abnormalities seen. No extra-axial fluid or blood. POSTERIOR FOSSA: The cerebellum and brainstem are intact. The 4th ventricle is midline. The cerebellopontine angle i s unremarkable. EXTRACRANIAL: The visualized portion of the orbits is intact. SKULL: The calvaria is intact. No evidence of skull fracture. CONCLUSION: No acute findings. Stable configuration to the subacute left frontoparietal infarction. Lionel Wood MD on May 22, 2017 at 23:12 Board Certified Radiologist. This report was verified electronically.
[2017-05-23] VITALS (8 sets, daily range): BP systolic 139–200; BP diastolic 64–90; PULSE 52–65; RESP 17–20; TEMP 97.6–99.2; O2SAT 95–100
[2017-05-23] MEDS: levETIRAcetam INJ 500 MG in SODIUM CHLORIDE 0.9% INJ 100 ML IV SCH ×2 (00:20→13:58)
[2017-05-23] MEDS: ENALAPRILAT 2.5 MG/2 ML VIAL IV PUSH PRN ×2 (00:36→09:21)
[2017-05-23] MEDS: INSULIN ASPART SUPPLEMENTAL SCALE SQ SCH ×4 (06:34→21:00)
[2017-05-23] MEDS: DOCUSATE SODIUM 50 MG/SENNA 8.6 MG TAB PO SCH ×2 (09:00→21:00)
[2017-05-23] MEDS: DEXT 5%-NACL 0.9% 1000 ML INJ 1,000 ML IV SCH ×2 (09:20→22:00)
[2017-05-23] MEDS: SODIUM CHLORIDE 0.9% FLUSH 10 ML FLUSH IV FLUSH SCH ×2 (09:20→21:57)
[2017-05-23] MEDS: ASPIRIN 300 MG SUPP RECTAL SCH (09:21)
--- NOTE | 2017-05-23 12:53 | ECHRPT ---
Indication: CONCLUSIONS Normal left ventricular size. Wall thickness is normal. The left ventricular systolic function is low normal with an estimated ejection fraction in the rang e of 50- 55%. The left atrial size is upper limits of normal. Atrial septal aneurysm is present (benign finding). Mitral annular calcification is present. Trace mitral valve regurgitation. There is trace tricuspid valve regurgitation. The estimated pulmonary arterial pressure is 24 mmHg. The pulmonary valve is not well visualized. BP: / HR: Rhythm: Sinus MEASUREMENTS (Male / Female) Normal Values Technical Quality:Fair 2D ECHO LV Diastolic Diameter PLAX 4.2 cm 4.2 - 5.9 / 3.9 - 5.3 cm LV Systolic Diameter PLAX 3.3 cm IVS Diastolic Thickness 0.8 cm 0.6 - 1.0 / 0.6 - 0.9 cm LVPW Diastolic Thickness 0.8 cm 0.6 - 1.0 / 0.6 - 0.9 cm LV Relative Wall Thickness 0.4 RV Internal Dim ED PLAX 2.0 cm LA Systolic Diameter LX 3.8 cm 3.0 - 4.0 / 2.7 - 3.8 cm DOPPLER Mitral E Point Velocity 75.0 cm/s Mitral A Point Velocity 64.2 cm/s Mitral E to A Ratio 1.2 TR Peak Velocity 217.0 cm/s TR Peak Gradient 18.8 mmHg FINDINGS LEFT VENTRICLE Normal left ventricular size. Wall thickness is normal. The left ventricular systolic function is low normal with an estimated ejection fraction in the rang e of 50- 55%. RIGHT VENTRICLE Normal right ventricular size and systolic function. LEFT ATRIUM The left atrial size is upper limits of normal. RIGHT ATRIUM The right atrial size is normal. ATRIAL SEPTUM Atrial septal aneurysm is present (benign finding). AORTA The aortic root and proximal ascending aorta are normal in size on limited imaging. MITRAL VALVE Mitral annular calcification is present. Trace mitral valve regurgitation. AORTIC VALVE Trileaflet aortic valve. No aortic valve stenosis or regurgitation. TRICUSPID VALVE There is trace tricuspid valve regurgitation. The estimated pulmonary arterial pressure is 24 mmHg. PULMONARY VALVE The pulmonary valve is not well visualized. VESSELS The inferior vena cava is normal in size. PERICARDIUM No pericardial effusion. Cesar Fernando MD, FACC (Electronically Signed) Final Date:23 May 2017 12:53
[2017-05-23] MEDS ORDERED: cloNIDine HCL 0.2 MG/24 HR PATCH T-DERMAL ONE (13:00)
--- NOTE | 2017-05-23 13:25 | OTSOAPIP ---
TIME SESSION COMPLETED: 1315 TREATMENT TIME: 0 MINS. CHART REVIEWED. S: PAIN: NURSE REPORTS CHANGE IN STATUS TO HOLD UNTIL NEUROLOGIST REVIEWS O: HOLD EVALUATION A: PATIENT RESPONSE TO TREATMENT:AWAIT MD UPDATE P: REASSESS STATUS TOMORROW _X_ PT WAS INSTRUCTED TO NOT GET OUT OF BED OR CHAIR WITHOUT ASSISTANCE. CALL [facility] WAS LEFT WITHIN REACH. Therapist: Tran Coleman OTR/L Signature on file
--- NOTE | 2017-05-23 18:13 | HHI.PR ---
Review/Management Diagnosis left MCA cva with small petechial hemorrhage on MRI, but not on CT SHe has edema and mild mass effect and I think this is the reason for her profound lethargy Plan I will stop keppra, as this may be contributing to lethargy and she never had a sz. Diagnosis/Plan: Subjective Subjective Comments No acute events reported pt has been lethargic Active Medications Current Medications Medications (Trade) Dose Ordered Sig/Dylon Route Start Time Stop Time Status Last Admin (NS Flush) 2 ml UNSCH PRN IV FLUSH 05/20/17 16:30 (NS Flush) 2 ml BID IV FLUSH 05/20/17 21:00 05/23/17 09:20 (Zofran Inj) 4 mg Q6H PRN IVP 05/20/17 16:30 (Narcan Inj) 0.4 mg UNSCH PRN IV 05/20/17 16:30 (Aleah-Colace) 1 tab BID PO 05/20/17 21:00 05/22/17 21:44 (Milk Of Magnesia Liq) 30 ml Q12H PRN PO 05/20/17 16:30 (Senokot) 17.2 mg Q12H PRN PO 05/20/17 16:30 (Dulcolax Supp) 10 mg DAILY PRN RECTAL 05/20/17 16:30 (Lactulose Liq) 30 ml DAILY PRN PO 05/20/17 16:30 (D50w (Vial) Inj) 50 ml UNSCH PRN IV 05/20/17 20:30 (Glucagon Inj) 1 mg UNSCH PRN OTHER 05/20/17 20:30 (Vasotec Inj) 2.5 mg Q6H PRN IV PUSH 05/21/17 10:30 05/23/17 09:21 Aspirin 300 mg 300 mg DAILY RECTAL 05/21/17 11:15 05/23/17 09:21 (Keppra Inj/NS Inj) 105 ml @ 420 mls/hr Q12H IV 05/21/17 12:00 05/23/17 13:58 Labetalol HCl 10 mg 10 mg Q4H PRN IV 05/21/17 16:30 (D5W-NS 1000 ml Inj) 1,000 ml @ 80 mls/hr [id number] IV 05/22/17 09:00 05/23/17 09:20 Miscellaneous Information 1 ONCE ONCE T-DERMAL 05/30/17 12:30 05/30/17 12:31 Allergies Allergies Coded Allergies No Known Allergies (Verified01/22/17) Exam I&O / VS 05/22/17 05/22/17 05/23/17 14:59 22:59 06:59 Intake Total 508 ml 240 ml Balance 508 ml 240 ml Intake Oral 240 ml IV Total 508 ml # Voids 2 1 1 # Bowel Movements 0 Vital Signs Date Time Temp Pulse Resp B/P Pulse Ox O2 Delivery O2 Flow Rate FiO2 05/23/17 15:58 99.2 61 17 197/82 98 05/23/17 12:00 97.6 65 18 200/90 95 05/23/17 08:45 52 05/23/17 07:58 98.1 57 18 182/77 98 05/23/17 04:00 97.7 55 20 152/68 96 05/23/17 01:44 56 139/64 05/23/17 00:32 98.2 64 20 171/74 96 05/22/17 21:36 77 14 168/79 97 Respiratory: Lungs CTA, Non-labored respirations, BS equal Cardiology: Normal rate, Normal peripheral perfusion, Regular Rhythm Musculoskeletal: Swelling (none and lower extremities) Exam Comments lethargic. but easy to arouse PERRL, Right UMN CN 7 palsey 0/5 RUE and RLE strength 5/5 LUE and LLE Objective Radiology Results CT brain--large left MCA stroke with edema and mass effect. no hemorrhage Figueroa Hernández PhD May 23, 2017 18:13
[2017-05-23] MEDS: DEXAMETHASONE SOD PHOS 4 MG/ML VIAL IV PUSH SCH (21:56)
[2017-05-24] VITALS (9 sets, daily range): BP systolic 175–205; BP diastolic 71–100; PULSE 48–67; RESP 18–19; TEMP 96.7–98.8; O2SAT 63–97
[2017-05-24] MEDS: DEXAMETHASONE SOD PHOS 4 MG/ML VIAL IV PUSH SCH ×5 (03:55→22:00)
[2017-05-24] MEDS: INSULIN ASPART SUPPLEMENTAL SCALE SQ SCH ×4 (06:50→21:00)
--- NOTE | 2017-05-24 08:20 | HHI.PR ---
Subjective Remarks She is more alert and responsive this morning. However, she does not appear to be fully understanding what she is asked. She responds "yeah" to almost every question that is posed to her. She is with much better responses for the left limbs. There is also somewhat better response mildly for the right lower limb, but little change for the right upper limb which appears to be flaccid. Blood pressure is maintained somewhat elevated to insure better cerebral circulation. Objective - Vital Signs Date Time Temp Pulse Resp B/P Pulse Ox O2 Delivery O2 Flow Rate FiO2 05/24/17 04:20 98.8 51 18 176/71 96 05/24/17 02:41 62 05/24/17 00:01 93 05/24/17 00:00 98.7 60 18 175/73 63 05/23/17 20:00 98.6 60 19 170/74 100 05/23/17 15:58 99.2 61 17 197/82 98 05/23/17 12:00 97.6 65 18 200/90 95 05/23/17 08:45 52 I/O 05/23/17 05/23/17 05/23/17 05/24/17 05/24/17 05/24/17 07:00 15:00 23:00 07:00 15:00 23:00 Intake Total 240 ml 646 ml 960 ml Balance 240 ml 646 ml 960 ml IV Total 240 ml 646 ml 960 ml # Voids 1 2 # Bowel Movements 0 Result Diagram: 05/22/17 0441 05/22/17 0441 Objective Remarks GENERAL: Alert and does not appear to be in any distress. SKIN: Warm and dry. HEAD: Normocephalic. Atraumatic. EYES: No scleral icterus. No injection or drainage. NECK: Supple, trachea midline. No JVD or lymphadenopathy. CARDIOVASCULAR: Regular rate and rhythm without murmurs, gallops, or rubs. RESPIRATORY: Breath sounds equal bilaterally. No accessory muscle use. GASTROINTESTINAL: Abdomen soft, non-tender, nondistended. MUSCULOSKELETAL: Her limbs show strength at 0/5 for the right upper limb, 2-3/5 for the right lower limb, 5/5 for the left upper limb and 4/5 fo the left lower limb. No cyanosis, or edema. BACK: Nontender without obvious deformity. No CVA tenderness. NEUROLOGICAL: Appears with cognitive deficit for understanding conversational cues Other as per the musculoskeletal exam. A/P Assessment and Plan ASSESSMENT 1. 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 2. Right Hemiplegia with some Left Hemiparesis. 3. Cognitive Deficit with Aphasia. 4. Hypertension. 5. Diabetes Mellitus, Type 2. 6. Hyperlipidemia. 7. Paroxysmal Supraventricular Tachycardia. 8. Smoking. 9. Anxiety Disorder. PLAN 1. Continue with N.P.O. status as monitored by Speech Therapy. 2. Continue with Physical, Occupational and Speech Therapy. 3. Neurology continues to follow. 4. Laboratory assessment is pending. 5. Continue close neuro checks. 6. Continue close blood pressure monitoring. 7. DVT and PUD prophylaxis. Wilfred Martin MD May 24, 2017 08:20
[2017-05-24] MEDS: DOCUSATE SODIUM 50 MG/SENNA 8.6 MG TAB PO SCH ×2 (09:53→21:00)
[2017-05-24] MEDS: SODIUM CHLORIDE 0.9% FLUSH 10 ML FLUSH IV FLUSH SCH ×2 (09:54→21:00)
[2017-05-24] MEDS: ASPIRIN 300 MG SUPP RECTAL SCH (09:54)
[2017-05-24 12:09] LABS: AUTOMATED NEUTROPHIL # 7.9 TH/MM3 (1.8-7.7); BASOPHIL % 0.3 % (0.0-2.0); HEMATOCRIT 39.2 % (35.0-46.0); HEMO FLAGS DIFF FINAL; LYMPH % 12.5 % (9.0-44.0); LYMPHOCYTE # 1.2 TH/MM3 (1.0-4.8); MEAN CELL VOLUME 92.5 FL (80.0-100.0); MEAN CORPUSCULAR HEMOGLOBIN 32.3 PG (27.0-34.0); MEAN CORPUSCULAR HGB CONC 34.9 % (32.0-36.0); NEUT % 82.2 % (16.0-70.0); PLATELET COUNT 224 TH/MM3 (150-450); RED BLOOD COUNT 4.24 MIL/MM3 (4.00-5.30); RED CELL DISTRIBUTION WIDTH 13.1 % (11.6-17.2); WHITE BLOOD COUNT 9.6 TH/MM3 (4.0-11.0)
[2017-05-24 12:49] LABS: BICARBONATE 22.8 MEQ/L (21.0-32.0); POTASSIUM 3.9 MEQ/L (3.5-5.1)
[2017-05-24] MEDS: DEXT 5%-NACL 0.9% 1000 ML INJ 1,000 ML IV SCH (16:47)
[2017-05-25] VITALS (8 sets, daily range): BP systolic 167–222; BP diastolic 72–98; PULSE 48–72; RESP 18; TEMP 97.4–98.1; O2SAT 96–100
[2017-05-25] MEDS: DEXAMETHASONE SOD PHOS 4 MG/ML VIAL IV PUSH SCH ×3 (03:22→16:00)
[2017-05-25] MEDS: INSULIN ASPART SUPPLEMENTAL SCALE SQ SCH ×4 (06:34→21:25)
[2017-05-25] MEDS: DEXT 5%-NACL 0.9% 1000 ML INJ 1,000 ML IV SCH ×2 (07:36→17:36)
[2017-05-25] MEDS: DOCUSATE SODIUM 50 MG/SENNA 8.6 MG TAB PO SCH ×2 (08:21→21:00)
[2017-05-25] MEDS: SODIUM CHLORIDE 0.9% FLUSH 10 ML FLUSH IV FLUSH SCH ×2 (08:21→21:00)
[2017-05-25] MEDS ORDERED: LORazepam 2 MG/ML VIAL IV PUSH ONE (08:45)
[2017-05-25] MEDS ORDERED: LORazepam 2 MG/ML VIAL IM ONE (09:00)
[2017-05-25] MEDS: ASPIRIN 300 MG SUPP RECTAL SCH (09:00)
[2017-05-25] MEDS ORDERED: HALOPERIDOL LACTATE 5 MG/ML AMP IM ONE (15:00)
[2017-05-25] MEDS: ENALAPRILAT 2.5 MG/2 ML VIAL IV PUSH PRN (16:13)
--- NOTE | 2017-05-25 19:44 | HHI.PR ---
Subjective Remarks She is much calmer at this time as compared to earlier when discussion with the nurse revealed that she was quite agitated. She appears to have responded rather favorably up to this point for the use of Haldol. She is still recommended for NPO status per speech therapy. Hopefully, as she is more calm, she will be more amenable to a more positive response for speech therapy. Objective - Vital Signs Date Time Temp Pulse Resp B/P Pulse Ox O2 Delivery O2 Flow Rate FiO2 05/25/17 16:00 97.5 68 18 204/89 97 05/25/17 12:00 97.4 55 18 173/73 97 05/25/17 11:00 50 05/25/17 08:42 97.9 60 18 194/79 96 05/25/17 04:00 98.1 64 18 194/79 98 05/25/17 00:00 214/86 05/25/17 00:00 97.6 72 18 222/98 97 05/24/17 20:00 97.7 67 19 200/80 97 I/O 05/24/17 05/24/17 05/24/17 05/25/17 05/25/17 05/25/17 07:00 15:00 23:00 07:00 15:00 23:00 Intake Total 960 ml 0 ml 417 ml Balance 960 ml 0 ml 417 ml Intake Oral 0 ml IV Total 960 ml 417 ml # Voids 2 1 # Bowel Movements 0 Result Diagram: 05/24/17 1104 05/24/17 1104 Objective Remarks GENERAL: Alert. More calm today. SKIN: Warm and dry. HEAD: Normocephalic. EYES: No scleral icterus. No injection or drainage. NECK: Supple, trachea midline. No JVD or lymphadenopathy. CARDIOVASCULAR: Regular rate and rhythm with murmur stable. There are no gallops or rubs. RESPIRATORY: Breath sounds equal bilaterally. No accessory muscle use. GASTROINTESTINAL: Abdomen soft, non-tender, nondistended. MUSCULOSKELETAL: No cyanosis, or edema. Right hemiparesis persists with plegia of the RUE and paresis of the RLE. BACK: Nontender without obvious deformity. No CVA tenderness. NEUROLOGICAL: Speech is still limited. A/P Assessment and Plan ASSESSMENT 1. 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 2. Right Upper Limb Plegia with Right Lower Limb paresis. 3. Cognitive Deficit with Aphasia. 4. Dysphagia with aspiration risk. 5. Hypertension. 6. Diabetes Mellitus, Type 2. 7. Hyperlipidemia. 8. Paroxysmal Supraventricular Tachycardia. 9. Smoking. 10. Bipolar Disorder with Anxiety. PLAN 1. Continue with N.P.O. status as monitored by Speech Therapy. 2. Continue with Physical, Occupational and Speech Therapy. 3. Neurology continues to follow. 4. Will have NG Tube inserted for feeding. 5. Continue close neuro checks. 6. Continue close blood pressure monitoring. 7. DVT, PE and PUD prophylaxis. Wilfred Martin MD May 25, 2017 19:44
[2017-05-25] MEDS: HALOPERIDOL LACTATE 5 MG/ML AMP IM SCH (22:41)
[2017-05-26] VITALS (8 sets, daily range): BP systolic 146–198; BP diastolic 65–114; PULSE 38–73; RESP 16–20; TEMP 97.3–97.6; O2SAT 97–99
[2017-05-26] MEDS ORDERED: LORazepam 2 MG/ML VIAL IM ONE (03:00)
[2017-05-26] MEDS: HALOPERIDOL LACTATE 5 MG/ML AMP IM SCH ×2 (05:58→13:24)
[2017-05-26] MEDS: INSULIN ASPART SUPPLEMENTAL SCALE SQ SCH ×4 (07:00→21:00)
[2017-05-26] MEDS: DOCUSATE SODIUM 50 MG/SENNA 8.6 MG TAB PO SCH ×2 (09:00→21:00)
[2017-05-26] MEDS: ASPIRIN 300 MG SUPP RECTAL SCH (09:13)
[2017-05-26] MEDS: SODIUM CHLORIDE 0.9% FLUSH 10 ML FLUSH IV FLUSH SCH ×2 (09:13→21:24)
[2017-05-26] MEDS: DEXT 5%-NACL 0.9% 1000 ML INJ 1,000 ML IV SCH ×3 (13:05→23:21)
--- NOTE | 2017-05-26 17:15 | EKG ---
Date Performed: 05/26/2017 Time Performed: 03:13:18 PTAGE: 66 years EKG: Sinus bradycardia with sinus arrhythmia with 1st degree A-V block. Prolonged QT interval Po or R wave progression - probable normal variant Extensive ST-T changes are nonspecific Since previous tracing, no significant change noted Abnormal ECG PREVIOUS TRACING : 05/20/2017 12.21.49 DOCTOR: Rex Raphael Interpretating Date/Time 05/26/2017 17:14:32
--- NOTE | 2017-05-26 19:25 | HHI.PR ---
Subjective Remarks She remains more calm today. She was more effective for her speech evaluation today. She has been advanced to pureed diet and appears to be tolerating it quite well. She is also trying to do more with the right side of her body. Objective - Vital Signs Date Time Temp Pulse Resp B/P Pulse Ox O2 Delivery O2 Flow Rate FiO2 05/26/17 16:32 97.5 49 16 146/65 98 05/26/17 12:08 97.3 73 16 161/68 98 05/26/17 11:52 97.3 73 20 161/68 98 05/26/17 08:40 97.6 47 16 197/114 99 05/26/17 07:16 38 05/26/17 05:50 97.5 52 20 193/84 98 05/26/17 00:00 97.6 51 20 198/83 98 05/25/17 22:01 97.5 48 18 167/72 100 I/O 05/25/17 05/25/17 05/25/17 05/26/17 05/26/17 05/26/17 07:00 15:00 23:00 07:00 15:00 23:00 Intake Total 0 ml 417 ml 1122 ml Balance 0 ml 417 ml 1122 ml Intake Oral 0 ml 240 ml IV Total 417 ml 882 ml # Voids 1 1 2 Result Diagram: 05/24/17 1104 05/24/17 1104 Objective Remarks GENERAL: Alert and less agitated. SKIN: Warm and dry. HEAD: Normocephalic and atraumatic. EYES: No scleral icterus. No injection or drainage. NECK: Supple, trachea midline. No JVD or lymphadenopathy. CARDIOVASCULAR: Regular rate and rhythm without murmurs, gallops, or rubs. RESPIRATORY: Breath sounds equal bilaterally. No accessory muscle use. GASTROINTESTINAL: Abdomen soft, non-tender, nondistended. MUSCULOSKELETAL: There is strength at 0/5 for the RUE, 1-2/5 for the RLE. No cyanosis, or edema. BACK: Nontender without obvious deformity. No CVA tenderness. NEUROLOGICAL: Her speech is markedly limited to simple one work responses and usually :"yeah" and "no". A/P Assessment and Plan ASSESSMENT 1. 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 2. Right Hemiplegia with some Left Hemiparesis. 3. Cognitive Deficit with Aphasia. 4. Dysphagia with aspiration risk. 5. Hypertension. 6. Diabetes Mellitus, Type 2. 7. Hyperlipidemia. 8. Paroxysmal Supraventricular Tachycardia. 9. Smoking. 10. Bipolar Disorder with Anxiety. PLAN 1. Continue with pureed diet as monitored by Speech Therapy. 2. Continue with Physical Therapy, Occupational Therapy and Speech Therapy treatments. 3. Neurology continues to follow. 4. Follow up laboratory assessment as needed. 5. Continue close neuro checks. 6. Continue close blood pressure monitoring. 7. DVT, PE and PUD prophylaxis. Wilfred Martin MD May 26, 2017 19:25
[2017-05-26] MEDS ORDERED: BISACODYL 10 MG SUPP RECTAL ONE (20:00)
[2017-05-26] MEDS ORDERED: HALOPERIDOL LACTATE 5 MG/ML AMP IM SCH (21:00)
[2017-05-27] VITALS (9 sets, daily range): BP systolic 119–202; BP diastolic 66–85; PULSE 44–63; RESP 18–22; TEMP 97.4–98.7; O2SAT 96–100
[2017-05-27] MEDS: INSULIN ASPART SUPPLEMENTAL SCALE SQ SCH ×4 (05:33→21:00)
[2017-05-27] MEDS: SODIUM CHLORIDE 0.9% FLUSH 10 ML FLUSH IV FLUSH SCH ×2 (09:16→21:00)
[2017-05-27] MEDS: ASPIRIN 300 MG SUPP RECTAL SCH (09:16)
[2017-05-27] MEDS: DOCUSATE SODIUM 50 MG/SENNA 8.6 MG TAB PO SCH ×2 (09:16→21:18)
--- NOTE | 2017-05-27 16:04 | HHI.PR ---
Review/Management Diagnosis left MCA cva with expressive aphasia and right hemiparesis left carotid occlusion on CTA Plan continue asa PT/OT/Speech therapy Diagnosis/Plan: Subjective Subjective Comments No acute events reported Has been more alert Active Medications Current Medications Medications (Trade) Dose Ordered Sig/Dylon Route Start Time Stop Time Status Last Admin (NS Flush) 2 ml UNSCH PRN IV FLUSH 05/20/17 16:30 (NS Flush) 2 ml BID IV FLUSH 05/20/17 21:00 05/27/17 09:16 (Zofran Inj) 4 mg Q6H PRN IVP 05/20/17 16:30 (Narcan Inj) 0.4 mg UNSCH PRN IV 05/20/17 16:30 (Aleah-Colace) 1 tab BID PO 05/20/17 21:00 05/27/17 09:16 (Milk Of Magnesia Liq) 30 ml Q12H PRN PO 05/20/17 16:30 (Senokot) 17.2 mg Q12H PRN PO 05/20/17 16:30 (Dulcolax Supp) 10 mg DAILY PRN RECTAL 05/20/17 16:30 (Lactulose Liq) 30 ml DAILY PRN PO 05/20/17 16:30 (D50w (Vial) Inj) 50 ml UNSCH PRN IV 05/20/17 20:30 (Glucagon Inj) 1 mg UNSCH PRN OTHER 05/20/17 20:30 (Vasotec Inj) 2.5 mg Q6H PRN IV PUSH 05/21/17 10:30 05/25/17 16:13 (Aspirin Supp) 300 mg DAILY RECTAL 05/21/17 11:15 05/27/17 09:16 Miscellaneous Information 1 ONCE ONCE T-DERMAL 05/30/17 12:30 05/30/17 12:31 Allergies Allergies Coded Allergies No Known Allergies (Verified01/22/17) Exam I&O / VS 05/26/17 05/26/17 05/27/17 15:00 23:00 07:00 Intake Total 1122 ml Balance 1122 ml Intake Oral 240 ml IV Total 882 ml # Voids 2 1 # Bowel Movements 2 Vital Signs Date Time Temp Pulse Resp B/P Pulse Ox O2 Delivery O2 Flow Rate FiO2 05/27/17 15:57 97.9 56 18 202/85 98 05/27/17 11:39 97.4 55 18 198/79 99 05/27/17 07:53 97.5 55 18 175/74 100 05/27/17 07:36 44 05/27/17 04:34 98.7 51 22 119/66 99 05/27/17 00:25 98.5 61 20 184/81 100 05/26/17 20:02 97.6 58 20 161/65 97 05/26/17 16:32 97.5 49 16 146/65 98 Respiratory: Lungs CTA, Non-labored respirations, BS equal Cardiology: Normal rate, Normal peripheral perfusion, Regular Rhythm Musculoskeletal: Swelling (none and lower extremities) Exam Comments More alert, expressive aphasia PERRL, Right UMN CN 7 palsey 0/5 RUE and RLE strength 5/5 Figueroa Roldan PhD MD May 27, 2017 16:04
--- NOTE | 2017-05-27 19:50 | HHI.PR ---
Subjective Remarks She apparently has been doing well during the day. The nurse now reports a run of ventricular tachycardia that was asymptomatic and self limited. Objective - Vital Signs Date Time Temp Pulse Resp B/P Pulse Ox O2 Delivery O2 Flow Rate FiO2 05/27/17 15:57 97.9 56 18 202/85 98 05/27/17 11:39 97.4 55 18 198/79 99 05/27/17 07:53 97.5 55 18 175/74 100 05/27/17 07:36 44 05/27/17 04:34 98.7 51 22 119/66 99 05/27/17 00:25 98.5 61 20 184/81 100 05/26/17 20:02 97.6 58 20 161/65 97 I/O 05/26/17 05/26/17 05/26/17 05/27/17 05/27/17 05/27/17 06:59 14:59 22:59 06:59 14:59 22:59 Intake Total 1122 ml 120 ml Balance 1122 ml 120 ml Intake Oral 240 ml 120 ml IV Total 882 ml # Voids 1 2 1 1 # Bowel Movements 2 Result Diagram: 05/24/17 1104 05/24/17 1104 Objective Remarks GENERAL: Alert and trying to be more interactive. SKIN: Warm and dry. HEAD: Normocephalic. Atraumatic. EYES: No scleral icterus. No injection or drainage. NECK: Supple, trachea midline. No JVD or lymphadenopathy. CARDIOVASCULAR: Regular rate and rhythm without murmurs, gallops, or rubs. RESPIRATORY: Breath sounds equal bilaterally. No accessory muscle use. GASTROINTESTINAL: Abdomen soft, non-tender, nondistended. MUSCULOSKELETAL: No cyanosis, or edema. Right hemiparesis persists. BACK: Nontender without obvious deformity. No CVA tenderness. NEUROLOGICAL: Speech is still markedly limited. A/P Assessment and Plan ASSESSMENT 1. 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 2. Right Hemiparesis with resolved Left Paresis. 3. Cognitive Deficit with Aphasia. 4. Dysphagia with aspiration risk. 5. Hypertension. 6. Diabetes Mellitus, Type 2. 7. Hyperlipidemia. 8. Paroxysmal Supraventricular Tachycardia. 9. Smoking. 10. Bipolar Disorder with Anxiety. 11. Transient Ventricular Tachycardia-self limited. PLAN 1. Continue with pureed diet as monitored by Speech Therapy. 2. Continue with Physical Therapy, Occupational Therapy and Speech Therapy treatments. 3. Neurology continues to follow. 4. Activity as tolerated. 5. Continue close neuro checks. 6. Continue blood pressure somewhat elevated. 7. DVT, PE and PUD prophylaxis. Wilfred Martin MD May 27, 2017 19:50
[2017-05-27 22:09] LABS: BICARBONATE 23.3 MEQ/L (21.0-32.0); POTASSIUM 3.9 MEQ/L (3.5-5.1)
[2017-05-28] VITALS: BP 179/88; PULSE 57; RESP 20; TEMP 98.5; O2SAT 95
[2017-05-28 04:00] VITALS: BP 177/78; PULSE 53; RESP 20; TEMP 98.5; O2SAT 97
[2017-05-28] MEDS: INSULIN ASPART SUPPLEMENTAL SCALE SQ SCH ×4 (06:23→21:14)
[2017-05-28 08:00] VITALS: BP 183/96; PULSE 55; RESP 19; TEMP 98.3; O2SAT 98
[2017-05-28] MEDS: ASPIRIN 300 MG SUPP RECTAL SCH (08:23)
[2017-05-28] MEDS: DOCUSATE SODIUM 50 MG/SENNA 8.6 MG TAB PO SCH ×2 (08:23→21:13)
[2017-05-28] MEDS: SODIUM CHLORIDE 0.9% FLUSH 10 ML FLUSH IV FLUSH SCH ×2 (08:23→21:12)
[2017-05-28 09:20] LABS: AUTOMATED NEUTROPHIL # 7.7 TH/MM3 (1.8-7.7); BASOPHIL % 0.3 % (0.0-2.0); EOSINOPHIL # 0.4 TH/MM3 (0-0.4); EOSINOPHIL % 3.7 % (0.0-4.0); HEMATOCRIT 39.4 % (35.0-46.0); HEMO FLAGS DIFF FINAL; LYMPH % 21.3 % (9.0-44.0); LYMPHOCYTE # 2.4 TH/MM3 (1.0-4.8); MEAN CELL VOLUME 91.9 FL (80.0-100.0); MEAN CORPUSCULAR HEMOGLOBIN 31.8 PG (27.0-34.0); MEAN CORPUSCULAR HGB CONC 34.6 % (32.0-36.0); MONO % 6.9 % (0.0-8.0); NEUT % 67.8 % (16.0-70.0); PLATELET COUNT 205 TH/MM3 (150-450); RED BLOOD COUNT 4.29 MIL/MM3 (4.00-5.30); WHITE BLOOD COUNT 11.4 TH/MM3 (4.0-11.0)
[2017-05-28 12:00] VITALS: BP 126/61; PULSE 61; RESP 19; TEMP 97.6; O2SAT 98
--- NOTE | 2017-05-28 15:39 | EKG ---
Date Performed: 05/27/2017 Time Performed: 20:31:30 PTAGE: 66 years EKG: SINUS BRADYCARDIA WITH FIRST DEGREE AV BLOCK LEFT VENTRICULAR HYPERTROPHY AND ST-T CHANGE P OSSIBLE ANTERIOR MYOCARDIAL INFARCTION , OF INDETERMINATE AGE ABNORMAL ECG PREVIOUS TRACING : 05/26/2017 03.13 DOCTOR: Sara Hui Interpretating Date/Time 05/28/2017 15:37:00
[2017-05-28 16:00] VITALS: BP 187/83; PULSE 56; RESP 19; TEMP 98; O2SAT 98
[2017-05-28 20:00] VITALS: BP 169/70; PULSE 52; PULSE 60; RESP 18; TEMP 98.4; O2SAT 97
--- NOTE | 2017-05-28 21:33 | HHI.PR ---
Subjective Remarks She is much brighter at this time. She continues to tolerate her oral intake. She is handling some oral medication in applesauce. No other major adverse complaints are reported. Her discharge planning continues. Objective - Vital Signs Date Time Temp Pulse Resp B/P Pulse Ox O2 Delivery O2 Flow Rate FiO2 05/28/17 16:00 98.0 56 19 187/83 98 05/28/17 12:00 97.6 61 19 126/61 98 05/28/17 08:00 98.3 55 19 183/96 98 05/28/17 04:00 98.5 53 20 177/78 97 05/28/17 00:00 98.5 57 20 179/88 95 I/O 05/27/17 05/27/17 05/27/17 05/28/17 05/28/17 05/28/17 06:59 14:59 22:59 06:59 14:59 22:59 Intake Total 360 ml 480 ml Balance 360 ml 480 ml Intake Oral 360 ml 480 ml # Voids 1 3 1 3 # Bowel Movements 2 0 0 Result Diagram: 05/28/17 0700 05/27/172101 Objective Remarks GENERAL: No acute distress. SKIN: Warm and dry. HEAD: Normocephalic. EYES: No scleral icterus. No injection or drainage. NECK: Supple, trachea midline. No JVD or lymphadenopathy. CARDIOVASCULAR: Regular rate and rhythm without murmurs, gallops, or rubs. RESPIRATORY: Breath sounds equal bilaterally. No accessory muscle use. GASTROINTESTINAL: Abdomen soft, non-tender, nondistended. MUSCULOSKELETAL: No cyanosis, or edema. Right sided deficits persist. BACK: Nontender without obvious deformity. No CVA tenderness. NEUROLOGICAL: No new deficits to exam. A/P Assessment and Plan ASSESSMENT 1. 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 2. Right Hemiplegia with some Left Hemiparesis. 3. Cognitive Deficit with Aphasia. 4. Dysphagia with aspiration risk. 5. Hypertension. 6. Diabetes Mellitus, Type 2. 7. Hyperlipidemia. 8. Paroxysmal Supraventricular Tachycardia. 9. Smoking. 10. Bipolar Disorder with Anxiety. PLAN 1. Continue with pureed diet as monitored by Speech Therapy. 2. Continue with Physical Therapy, Occupational Therapy and Speech Therapy treatments. 3. Neurology follows. 4. Discharge Planning to go to SNF for rehab. 5. Continue close neuro checks. 6. Continue close blood pressure monitoring. 7. DVT, PE and PUD prophylaxis. Wilfred Martin MD May 28, 2017 21:33
[2017-05-28] MEDS ORDERED: DIAZ5 PO (21:47)
[2017-05-28] MEDS ORDERED: LIPI10TA PO (21:47)
[2017-05-29 00:44] VITALS: BP 191/80; PULSE 59; RESP 18; TEMP 98.1; O2SAT 95
[2017-05-29 04:00] VITALS: BP 157/72; PULSE 60; RESP 18; TEMP 98.4; O2SAT 97
[2017-05-29] MEDS: INSULIN ASPART SUPPLEMENTAL SCALE SQ SCH ×2 (06:08→11:00)
[2017-05-29 08:04] VITALS: BP 113/62; PULSE 66; RESP 20; TEMP 97.5; O2SAT 97
[2017-05-29] MEDS ORDERED: LOSARTAN 25 MG TAB PO SCH (09:00)
[2017-05-29] MEDS ORDERED: ATORVASTATIN 10 MG TAB PO SCH (09:00)
[2017-05-29] MEDS: DOCUSATE SODIUM 50 MG/SENNA 8.6 MG TAB PO SCH (10:15)
--- NOTE | 2017-05-29 10:26 | HHI.PR ---
Subjective Remarks I spoke to the [facility] and she reports that this patient has been accepted to go to rehab. Objective - Vital Signs Date Time Temp Pulse Resp B/P Pulse Ox O2 Delivery O2 Flow Rate FiO2 05/29/17 08:04 97.5 66 20 113/62 97 05/29/17 04:00 98.4 60 18 157/72 97 05/29/17 00:44 98.1 59 18 191/80 95 05/28/17 20:00 98.4 60 18 169/70 97 05/28/17 20:00 52 05/28/17 16:00 98.0 56 19 187/83 98 05/28/17 12:00 97.6 61 19 126/61 98 I/O 05/28/17 05/28/17 05/28/17 05/29/17 05/29/17 05/29/17 06:59 14:59 22:59 06:59 14:59 22:59 Intake Total 480 ml 240 ml Balance 480 ml 240 ml Intake Oral 480 ml 240 ml # Voids 1 3 2 2 # Bowel Movements 0 0 0 Result Diagram: 05/28/17 0700 05/27/172101 Objective Remarks GENERAL: SKIN: Warm and dry. HEAD: Normocephalic. EYES: No scleral icterus. No injection or drainage. NECK: Supple, trachea midline. No JVD or lymphadenopathy. CARDIOVASCULAR: Regular rate and rhythm without murmurs, gallops, or rubs. RESPIRATORY: Breath sounds equal bilaterally. No accessory muscle use. GASTROINTESTINAL: Abdomen soft, non-tender, nondistended. MUSCULOSKELETAL: No cyanosis, or edema. BACK: Nontender without obvious deformity. No CVA tenderness. A/P Assessment and Plan ASSESSMENT 1. 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 2. Right Hemiplegia with some Left Hemiparesis. 3. Cognitive Deficit with Aphasia. 4. Dysphagia with aspiration risk. 5. Hypertension. 6. Diabetes Mellitus, Type 2. 7. Hyperlipidemia. 8. Paroxysmal Supraventricular Tachycardia. 9. Smoking. 10. Bipolar Disorder with Anxiety. PLAN 1. Continue with pureed diet as monitored by Speech Therapy. 2. Continue with Physical Therapy, Occupational Therapy and Speech Therapy treatments. 3. Neurology follows. 4. Continue close blood pressure monitoring. 5. Continue close neuro checks. 6. DVT, PE and PUD prophylaxis. 7. Discharge Planning for the patient to go to SNF for Rehab today. Wilfred Martin MD May 29, 2017 10:26
[2017-05-29 12:14] VITALS: BP 117/53; PULSE 64; RESP 20; TEMP 98.7; O2SAT 97
[2017-05-29] MEDS: ASPIRIN 300 MG SUPP RECTAL SCH (12:50)
[2017-05-29 15:32] VITALS: BP 138/61; PULSE 60; RESP 20; TEMP 97.8; O2SAT 96
[2017-05-29] MEDS ORDERED: DIAZEPAM 5 MG TAB PO SCH (21:00)
[2017-05-30] MEDS ORDERED: REMOVE OLD CATAPRES (CLONIDINE) PATCH T-DERMAL ONE (12:30)
== END 2017-05-29 18:19 | DRG 64 ==
LOC: NEPC 11:57 → NEDA 14:40 → N05B 18:08 → N03A 05-21 11:33 → N05B 05-22 10:00
PROVIDERS: ADMIT Internal Medicine; ATTEND Internal Medicine
DX: I63.512 Cerebral infarction due to unspecified occlusion or stenosis of left middle cerebral artery (principal); I61.9 Nontraumatic intracerebral hemorrhage, unspecified; I47.2 Ventricular tachycardia; G81.91 Hemiplegia, unspecified affecting right dominant side; I47.1 Supraventricular tachycardia; G81.94 Hemiplegia, unspecified affecting left nondominant side; I10 Essential (primary) hypertension; E11.9 Type 2 diabetes mellitus without complications; R47.01 Aphasia; F17.200 Nicotine dependence, unspecified, uncomplicated; M19.90 Unspecified osteoarthritis, unspecified site; G47.00 Insomnia, unspecified; M79.7 Fibromyalgia; M10.9 Gout, unspecified; F41.9 Anxiety disorder, unspecified; E78.5 Hyperlipidemia, unspecified; R47.81 Slurred speech; G51.0 Bell's palsy; I65.22 Occlusion and stenosis of left carotid artery; R41.89 Other symptoms and signs involving cognitive functions and awareness; F31.9 Bipolar disorder, unspecified
CPT/HCPCS: 70450; 70496; 70498; 70544; 70551; 71010; 76937; 80048; 80053; 80061; 80307; 81001; 82550; 82607; 82746; 82948; 83036; 83735; 83835; 84436; 84443; 84484; 85025; 85610; 85730; 93005; 93306; 95819; 96360; J1100; J1630; J1644; J1815; J1953; J2060; J7030; J7042; Q9967

== ENCOUNTER 2017-09-30 22:19 | Emergency (ER) | payer MEDICARE, OTHER ==
[~2017-09-30] VITALS: Ht 170.2 cm; Wt 75.0 kg
[~2017-09-30 22:19] MED LIST changes: +ASPI-183 PO; -ASPI325T PO; -ATEN50TA PO; -BENI40TA3 PO; -DIAZ10TA PO; +DIAZ5 PO; -FENO145T2 PO; -HYDR12.56 PO; +LIPI10TA PO; -LOSA50TA PO; -METF500 PO
[2017-09-30 22:24] VITALS: BP 243/116; PULSE 100; RESP 18; TEMP 97.9; O2SAT 98
[2017-09-30 22:36] VITALS: O2SAT 98
--- NOTE | 2017-09-30 22:48 | PD ---
HPI Chief Complaint: Fall Time Seen by Provider: 22:24 Travel History International Travel<30 days: No Contact w/Intl Traveler<30days: No Traveled to known affect area: No History of Present Illness HPI The patient is a 67 year old female who presents to the [facility] emergency department with a history of reportedly rolling out of bed at her snf earlier today. The patient is currently at [facility] related to a stroke affecting her right side. The patient also has aphasia related to the stroke. The patient arrives awake and alert. The patient and asked questions repeatedly says, "right" in response. The patient is however able to cooperate and when asked where her pain is she gives a thumbs-up that it is located in the right shoulder and right foot. Otherwise, review of systems is limited due to the patient's aphasia. The patient's history is obtained from reviewing the electronic medical record and the patient's snf record. FOR[facility]LY [facility] Past Medical History Narrative Medical The patient's past medical history For cerebrovascular accident involving the left middle cerebral artery distribution width right hemiplegia, aphasia with cognitive to deficit, history of dysphagia with aspiration risk, history of hypertension, diabetes mellitus, hyperlipidemia, paroxysmal SVT, bipolar disorder, osteoarthritis, insomnia, fibromyalgia, tobacco use. The patient's primary care physician is Dr. Mick Martin. 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) Anxiety: Yes Depression: No Heart Rhythm Problems: Yes (SVT) Cancer: No Cardiovascular Problems: Yes (SVT, AND A MURMUR) High Cholesterol: Yes Cerebrovascular Accident: Yes Diabetes: Yes Patient Takes Glucophage: No Diminished Hearing: No Endocrine: Yes Fibromyalgia: Yes Gastrointestinal Disorders: Yes (INCONCLUSIVE CELIAC) Glaucoma: No Genitourinary: Yes Hepatitis: No Hiatal Hernia: No Hypertension: Yes Immune Disorder: Yes Musculoskeletal: Yes (fibromyalgia) Neurologic: Yes Psychiatric: Yes Reproductive: No Respiratory: No Thyroid Disease: No Tetanus Vaccination: Unknown Influenza Vaccination: Yes ?: Not Menopausal: Yes Ovarian Cysts: Yes Past Surgical History Narrative Surgical The patient's past surgical history is significant for uterine fibroid resection , ovarian cyst removal, . Abdominal Surgery: Yes Appendectomy: Yes Cardiac Surgery: No Section: Yes Ear Surgery: No Endocrine Surgery: No Eye Surgery: No Genitourinary Surgery: Yes (C SECTION AND CYSTS REMOVED FROM OVARIES) Gynecologic Surgery: Yes (FIBROID TUMOR REMOVED) Oral Surgery: No Pacemaker: No Thoracic Surgery: No Other Surgery: Yes Social History Alcohol Use: No Tobacco Use: Yes (1/2 PACK PER DAY 15 YEARS) Substance Use: No Allergies-Medications (Allergen,Severity, Reaction): Coded Allergies: No Known Allergies (Verified Adverse Reaction, Unknown, 09/30/17) Reported Meds & Prescriptions Reported Meds & Active Scripts Active Hydrocodone-Acetaminophen 5-325 mg Tab 1 Tab PO Q6H PRN Valium (Diazepam) 5 Mg Tab 5 Mg PO Q12HR Lipitor (Atorvastatin Calcium) 10 Mg Tab 10 Mg PO DAILY Reported Aspirin 325 Mg Tab 325 Mg PO DAILY Review of Systems ROS Limitations: Speech Impaired, Poor Historian Musculoskeletal: Positive: Myalgias, Arthralgias, Limited ROM, Edema, Pain Physical Exam Narrative General: The patient is a well-developed well-nourished female, uncomfortable appearing on arrival, repeatedly pointing to her right shoulder.. Head and Neck exam: Head is normocephalic atraumatic. Eyes: EOMI, pupils are equal round and reactive to light. Nose: Midline septum with pink mucous membranes Mouth: Dentition unremarkable. Moist mucus membranes. Posterior oropharynx is not erythematous. No tonsillar hypertrophy. Uvula midline. Airway patent. Neck: No palpable lymphadenopathy. No nuchal rigidity. No thyromegaly. Cardiovascular: Regular rate and rhythm without murmurs, gallops, or rubs. Lungs: Clear to auscultation bilaterally. No wheezes, rhonchi, or rales. Abdomen: Soft, without tenderness to palpation in all 4 quadrants of the abdomen. No guarding, rebound, or rigidity. Normal bowel sounds are audible. No tenderness on palpation of McBurney's point. Extremities: No clubbing, cyanosis, or edema, except an area of interest, the right foot, the patient is noted to have some edema of the right foot and right ankle, slight erythema. The patient reports tenderness on palpation along the mid foot. 2+ pulses in all 4 extremities. The patient also has swelling to the right proximal shoulder with some ecchymosis developing along the right anterior chest wall. The patient has tenderness on palpation of the proximal humerus with decreased range of motion. Back: No costovertebral angle tenderness to palpation. Neurologic Exam: The patient has right-sided facial droop. The patient has decreased strength in the right upper and right lower extremity with hemiparesis related to her prior stroke. The patient has aphasia also related to her prior stroke. Skin Exam: No rash noted. Intact skin that is warm and dry. Data Data Last Documented VS Vital Signs Date Time Temp Pulse Resp B/P (MAP) Pulse Ox O2 Delivery O2 Flow Rate FiO2 10/01/17 00:18 64 18 117/57 (77) 94 Room Air 09/30/17 22:24 97.9 Orders Orders Foot, Complete (Xww4ttr) (09/30/17 22:33) Hip, Uni(Ap&Lat) W Ap Pelvis (09/30/17 22:33) Ice/Cold Pack (09/30/17 22:) Electrocardiogram (09/30/17 22:33) Complete Blood Count With Diff (09/30/17 22:33) Comprehensive Metabolic Panel (09/30/17 22:33) Creatine Kinase (Cpk) (09/30/17 22:33) Ckmb (Isoenzyme) Profile (09/30/17 22:33) Troponin I (09/30/17 22:33) B-Type Natriuretic Peptide (09/30/17 22:33) Prothrombin Time / Inr (Pt) (09/30/17 22:33) Act Partial Throm Time (Ptt) (09/30/17 22:33) Chest, Single Ap (09/30/17 22:33) Ct Brain W/O Iv Contrast(Rout) (09/30/17 22:33) Iv Access Insert/Monitor (09/30/17 22:33) Ecg Monitoring (09/30/17 22:33) Oximetry (09/30/17 22:33) Ct Cerv Spine W/O Contrast (09/30/17 ) Morphine Inj (Morphine Inj) (09/30/17 23:00) Ondansetron Inj (Zofran Inj) (09/30/17 23:00) Sodium Chlor 0.9% 1000 Ml Inj (Ns 1000 M (09/30/17 23:00) Shoulder, Limited(2vws) (09/30/17 22:33) Splint Or Brace Apply/Monitor (10/01/17 00:40) Sling And Swathe (09/30/17 ) Labs Laboratory Tests Test 09/30/17 22:50 White Blood Count 14.9 TH/MM3 Red Blood Count 4.85 MIL/MM3 Hemoglobin 15.3 GM/DL Hematocrit 42.7 % Mean Corpuscular Volume 88.0 FL Mean Corpuscular Hemoglobin 31.6 PG Mean Corpuscular Hemoglobin Concent 35.9 % Red Cell Distribution Width 14.7 % Platelet Count 253 TH/MM3 Mean Platelet Volume 8.8 FL Neutrophils (%) (Auto) 74.4 % Lymphocytes (%) (Auto) 18.0 % Monocytes (%) (Auto) 6.1 % Eosinophils (%) (Auto) 1.2 % Basophils (%) (Auto) 0.3 % Neutrophils # (Auto) 11.1 TH/MM3 Lymphocytes # (Auto) 2.7 TH/MM3 Monocytes # (Auto) 0.9 TH/MM3 Eosinophils # (Auto) 0.2 TH/MM3 Basophils # (Auto) 0.0 TH/MM3 CBC Comment DIFF FINAL Differential Comment Prothrombin Time 10.8 SEC Prothromb Time International Ratio 1.1 RATIO Activated Partial Thromboplast Time 26.7 SEC Blood Urea Nitrogen 14 MG/DL Creatinine 0.77 MG/DL Random Glucose 123 MG/DL Total Protein 7.3 GM/DL Albumin 3.7 GM/DL Calcium Level 9.3 MG/DL Alkaline Phosphatase 92 U/L Aspartate Amino Transf (AST/SGOT) 20 U/L Alanine Aminotransferase (ALT/SGPT) 18 U/L Total Bilirubin 0.5 MG/DL Sodium Level 140 MEQ/L Potassium Level 3.8 MEQ/L Chloride Level 105 MEQ/L Carbon Dioxide Level 26.5 MEQ/L Anion Gap 9 MEQ/L Estimat Glomerular Filtration Rate 75 ML/MIN Total Creatine Kinase 65 U/L Troponin I 0.04 NG/ML B-Type Natriuretic Peptide 51 PG/ML MDM Medical Decision Making Medical Screen Exam Complete: Yes Emergency Medical Condition: Yes Medical Record Reviewed: Yes Interpretation(s) Last Impressions Shoulder X-Ray 09/30/172232 Signed Impressions: Service Date/Time: Saturday, September 30, 2017 23:36 - CONCLUSION: Mildly comminuted proximal humeral fracture involving the anatomic neck, greater tuberosity, and lesser tuberosity. Lionel Wood MD Hip and Pelvis X-Ray 09/30/172232 Signed Impressions: Service Date/Time: Saturday, September 30, 2017 23:36 - CONCLUSION: No fracture seen. Lionel Wood MD Head CT 09/30/172232 Signed Impressions: Service Date/Time: Saturday, September 30, 2017 23:03 - CONCLUSION: 1. Old infarction left MCA distribution. 2. No acute findings. Lionel Wood MD Foot X-Ray 09/30/172232 Signed Impressions: Service Date/Time: Saturday, September 30, 2017 23:44 - CONCLUSION: 1. No evidence of recent bony injury. 2. Stable bony erosion distal 1st metatarsal head. Lionel Wood MD Chest X-Ray 09/30/172232 Signed Impressions: Service Date/Time: Saturday, September 30, 2017 23:36 - CONCLUSION: The lungs are clear. Lionel Wood MD Cervical Spine CT 09/30/17 0000 Signed Impressions: Service Date/Time: Saturday, September 30, 2017 23:03 - CONCLUSION: 1. No evidence of compression deformity or spondylolisthesis. 2. Moderate severity degenerative changes with left cervical scoliosis, osteophytes, and bilateral bony neural foraminal stenosis as described above. 3. Limited quality examination due to patient motion which may preclude identification of subtle fractures of the C3-T1 levels. Lionel Wood MD Differential Diagnosis Intracranial trauma, versus cervical spine trauma, versus right shoulder fracture, versus dislocation, versus right foot fracture, versus contusion, versus pelvis fracture. Narrative Course During the course of the patients emergency department visit, the patients history, examination, and differential diagnosis were reviewed with the patient. The patient was placed on a cardiac cath rn with oximetry and frequent blood pressure monitoring. The patient had IV access obtained and blood work sent for analysis. The patient arrives with a systolic blood pressure in the 240s. This may be related to pain as the patient does appear to be in distress related to pain. The patient will be given morphine for pain, Zofran for nausea. An EKG was done on arrival that shows a sinus rhythm with first-degree AV block, heart rate of 92, nonspecific ST T-wave abnormalities. No acute ST segment elevation. The patient was initially provided normal saline IV fluids, morphine for pain, Zofran for nausea. The patients laboratory studies were reviewed and remarkable for a white count of 14.9, hemoglobin 15.3, platelets 253 with neutrophils 74.4 CMP is remarkable for glucose of 123, Cardec enzymes within normal limits, BNP 51, PT PTT within normal limits. Radiology studies were reviewed and remarkable for right proximal comminuted humerus fracture. The patient was placed in a sling and swath. Right foot x- ray reveals no evidence of recent bone injury, stable bone erosion of the distal first metatarsal head. CT scan of the brain shows an old infarction of the left MCA distribution, no acute findings. CT scan of the C-spine shows severe degenerative changes, no acute abnormality. Chest x-ray shows no acute abnormality. Pelvis and right hip x-ray shows no acute abnormality. The patient will be discharged back to her custodial home with fall precautions. The patient will be discharged home with a prescription for pain medication and follow-up with the orthopedic physician on-call, Dr. Merino. The patient is resting comfortably and feels better, is alert and in no distress. The patients results and examination findings were discussed with the patient. The repeat examination is unremarkable and benign. The history, exam, diagnostic testing, and current condition do not suggest any significant pathology to warrant further testing, continued ED treatment, admission, or surgical evaluation at this point. The vital signs have been stable. The patient does not have uncontrollable pain, intractable vomiting, or other significant symptoms. The patient's condition is stable and appropriate for discharge. The patient will pursue further outpatient evaluation with a primary care physician or other designated or consulting physician as indicated in the discharge instructions. The patient expressed understanding and was agreeable with this plan. Diagnosis Primary Impression: Fall Qualified Codes: W19.XXXA - Unspecified fall, initial encounter Additional Impression: Closed fracture of right proximal humerus Qualified Codes: S42.291A - Other displaced fracture of upper end of right humerus, initial encounter for closed fracture Referrals: Kennedy Singh Jr., MD 2 days Patient Instructions: General Instructions, Proximal Humerus Fracture (ED) Med/Other Pt SpecificInfo: Prescription(s) given Scripts Hydrocodone-Acetaminophen (Hydrocodone-Acetaminophen) 5-325 mg Tab 1 TAB PO Q6H Y for PAIN, #20 TAB 0 Refills Prov: Suellen Berger MD 10/01/17 Disposition: 03 DISCHARGE TO SNF Condition: Stable Suellen Berger MD Sep 30, 2017 22:48
[2017-09-30] MEDS ORDERED: MORPHINE SULFATE 4 MG/ML INJ IV PUSH ONE (23:00)
[2017-09-30] MEDS ORDERED: SODIUM CHLOR 0.9% 1000 ML INJ 1,000 ML IV SCH (23:00)
[2017-09-30] MEDS ORDERED: ONDANSETRON HCL 4 MG/2 ML VIAL IV PUSH ONE (23:00)
[2017-09-30 23:01] VITALS: BP 118/54; PULSE 70; RESP 14; O2SAT 96
--- NOTE | 2017-09-30 23:22 | RADRPT ---
EXAM DATE/TIME: 09/30/2017 23:03 [facility] COMPARISON: CT BRAIN W/O CONTRAST, May 20, 2017, 12:24. MRI BRAIN W/O CONTRAST, May 21, 2017, 13:15. CT BRA IN W/O CONTRAST, May 22, 2017, 22:43. INDICATIONS : Trauma; fall. RADIATION DOSE: 56.35 CTDIvol (mGy) MEDICAL HISTORY : Stroke. Cardiovascular disease Hypertension. SURGICAL HISTORY : None. ENCOUNTER: Initial ACUITY: 1 day PAIN SCALE: 5/10 LOCATION: cranial TECHNIQUE: Multiple contiguous axial images were obtained of the head. Using automated exposure control and adj ustment of the mA and/or kV according to patient size, radiation dose was kept as low as reasonably a chievable to obtain optimal diagnostic quality images. DICOM format image data is available electro nically for review and comparison. FINDINGS: CEREBRUM: Encephalomalacia in the entire left MCA distribution with associated ex vacuo enlargement of the left lateral ventricle. The size of involvement is larger than prior CT and MR in May 2017, character istic of evolution/completion of the infarction. No hyper density is seen. No extra-axial fluid. M idline structures are not deviated. There is good mcallister-white matter differentiation in the right hem isphere. No evidence of acute blood products. POSTERIOR FOSSA: The cerebellum and brainstem are intact. The 4th ventricle is midline. The cerebellopontine angle i s unremarkable. EXTRACRANIAL: The visualized portion of the orbits is intact. SKULL: The calvaria is intact. No evidence of skull fracture. CONCLUSION: 1. Old infarction left MCA distribution. 2. No acute findings. Lionel Wood MD on September 30, 2017 at 23:17 Board Certified Radiologist. This report was verified electronically.
[2017-09-30 23:26] LABS: AUTOMATED NEUTROPHIL # 11.1 TH/MM3 (1.8-7.7); BASOPHIL % 0.3 % (0.0-2.0); EOSINOPHIL # 0.2 TH/MM3 (0-0.4); EOSINOPHIL % 1.2 % (0.0-4.0); HEMATOCRIT 42.7 % (35.0-46.0); HEMO FLAGS DIFF FINAL; LYMPHOCYTE # 2.7 TH/MM3 (1.0-4.8); MEAN CORPUSCULAR HEMOGLOBIN 31.6 PG (27.0-34.0); MEAN CORPUSCULAR HGB CONC 35.9 % (32.0-36.0); MONO % 6.1 % (0.0-8.0); NEUT % 74.4 % (16.0-70.0); PLATELET COUNT 253 TH/MM3 (150-450); RED BLOOD COUNT 4.85 MIL/MM3 (4.00-5.30); RED CELL DISTRIBUTION WIDTH 14.7 % (11.6-17.2); WHITE BLOOD COUNT 14.9 TH/MM3 (4.0-11.0)
[2017-09-30 23:30] LABS: APTT (PATIENT) 26.7 SEC (24.3-30.1); INTERNATIONAL NORMALIZED RATIO 1.1 RATIO; PROTHROMBIN TIME - PATIENT 10.8 SEC (9.8-11.6)
[2017-09-30 23:43] LABS: ALT (GPT) 18 U/L (10-53)
--- NOTE | 2017-09-30 23:43 | RADRPT ---
EXAM DATE/TIME: 09/30/2017 23:03 [facility] COMPARISON: No previous studies available for comparison. INDICATIONS : Trauma; fall. RADIATION DOSE: 37.28 CTDIvol (mGy) MEDICAL HISTORY : Stroke. Hypertension. Cardiovascular disease SURGICAL HISTORY : None. ENCOUNTER: Initial ACUITY: 1 day PAIN SCALE: 4/10 LOCATION: Bilateral neck TECHNIQUE: Volumetric scanning of the cervical spine was performed. Multiplanar reconstructions in the sagittal, coronal and oblique axial planes were performed. Using automated exposure control and adjustment o f the mA and/or kV according to patient size, radiation dose was kept as low as reasonably achievable to obtain optimal diagnostic quality images. DICOM format image data is available electronically f or review and comparison. FINDINGS: There is moderate patient motion which causes blurring of the images from C3 inferiorly. This will c ompromise detection of small fractures. Gross bony alignment can be assessed on this exam. There is reversal of the upper cervical lordosis. There is also a significant curvature of the lower cervica l spine comment as the left. Associated sclerosis of the vertebral endplates C5-6 and C6-7 and mild anterior and posterior osteophytes from C3-T1. No evidence of spondylolisthesis. Atlantoaxial artic ulation is intact. The facets are in normal alignment without evidence of locked or perched facets. Advanced hypertrophic degenerative changes are present in the right facet joints at C4-5. No gross fracture is identified. There is advanced asymmetric bony neural foraminal stenosis on the right side at C4-5 due to a combination of facet joint and uncovertebral joint hypertrophy. Moderate bilateral neural foraminal stenosis at C5-6 and C6. . CONCLUSION: 1. No evidence of compression deformity or spondylolisthesis. 2. Moderate severity degenerative changes with left cervical scoliosis, osteophytes, and bilateral [place] neural foraminal stenosis as described above. 3. Limited quality examination due to patient motion which may preclude identification of subtle frac tures of the C3-T1 levels. Lionel Wood MD on September 30, 2017 at 23:37 Board Certified Radiologist. This report was verified electronically.
[2017-09-30 23:49] LABS: ALKALINE PHOSPHATASE 92 U/L (45-117); ANION GAP 9 MEQ/L (5-15); AST (GOT) 20 U/L (15-37); BICARBONATE 26.5 MEQ/L (21.0-32.0); BLOOD UREA NITROGEN 14 MG/DL (7-18); CHLORIDE 105 MEQ/L (98-107); GLOMERULAR FILTRATION RATE 75 ML/MIN (>89); SODIUM (NA) 140 MEQ/L (136-145); TOTAL BILIRUBIN ADULT 0.5 MG/DL (0.2-1.0)
[2017-09-30 23:50] LABS: CREATINE KINASE 65 U/L (26-192); POTASSIUM 3.8 MEQ/L (3.5-5.1)
--- NOTE | 2017-10-01 00:16 | RADRPT ---
EXAM DATE/TIME: 09/30/2017 23:36 [facility] COMPARISON: CHEST SINGLE AP, May 20, 2017, 12:34. INDICATIONS : Short of breath after fall. MEDICAL HISTORY : Stroke. Hypertension. Cardiovascular disease SURGICAL HISTORY : None. ENCOUNTER: Initial ACUITY: 1 day PAIN SCORE: 0/10 LOCATION: Bilateral chest FINDINGS: A single view of the chest demonstrates the lungs to be symmetrically aerated without evidence of mas s, infiltrate or effusion. No evidence of pneumothorax. cardiomediastinal contours are unremarkable . Osseous structures are intact. CONCLUSION: The lungs are clear. Lionel Wood MD on October 01, 2017 at 0:14 Board Certified Radiologist. This report was verified electronically.
--- NOTE | 2017-10-01 00:17 | RADRPT ---
EXAM DATE/TIME: 09/30/2017 23:36 [facility] COMPARISON: No previous studies available for comparison. INDICATIONS : Right hip pain after fall. MEDICAL HISTORY : Stroke. Hypertension. Cardiovascular disease SURGICAL HISTORY : None. ENCOUNTER: Initial ACUITY: 1 day PAIN SCORE: 4/10 LOCATION: Right hip. FINDINGS: Examination of the right hip was performed with AP Pelvis. The primary and secondary trabecular laura lacie of the femoral neck is intact. The hip joint is of normal width without significant sclerosis or bony hypertrophy. The acetabulum is grossly intact. CONCLUSION: No fracture seen. Lionel Wood MD on October 01, 2017 at 0:15 Board Certified Radiologist. This report was verified electronically.
[2017-10-01 00:18] VITALS: BP 117/57; PULSE 64; RESP 18; O2SAT 94
--- NOTE | 2017-10-01 00:19 | RADRPT ---
EXAM DATE/TIME: 09/30/2017 23:36 [facility] COMPARISON: No previous studies available for comparison. INDICATIONS : Right shoulder pain after fall. MEDICAL HISTORY : Stroke. Hypertension. Cardiovascular disease SURGICAL HISTORY : None. ENCOUNTER: Initial ACUITY: 1 day PAIN SCORE: 10/10 LOCATION: Right shoulder. FINDINGS: Oblique fracture through the proximal humerus involving lesser and greater tuberosity. Displaced fra gment from the greater tuberosity. There is angulation of the humeral head. The glenoid appears leslye ssly intact. A.c. joint is intact. Visualized right upper ribs are intact. CONCLUSION: Mildly comminuted proximal humeral fracture involving the anatomic neck, greater tuberosity, and less er tuberosity. Lionel Wood MD on October 01, 2017 at 0:16 Board Certified Radiologist. This report was verified electronically.
--- NOTE | 2017-10-01 00:21 | RADRPT ---
EXAM DATE/TIME: 09/30/2017 23:44 [facility] COMPARISON: FOOT RIGHT COMPLETE ([id number]), May 12, 2015, 15:23. INDICATIONS : Right foot pain after fall. MEDICAL HISTORY : Stroke. Hypertension. Cardiovascular disease SURGICAL HISTORY : None. ENCOUNTER: Initial ACUITY: 1 day PAIN SCORE: 4/10 LOCATION: Right foot. FINDINGS: Moderate decreased bone density. There is a lateral erosion of the distal head of the 1st metatarsal , similar to prior examination in 2014. The osseous structures are in normal alignment. No signific ant arthropathy in the remainder of the joints of the forefoot or midfoot. Small retrocalcaneal spur , stable. No significant soft tissue swelling. CONCLUSION: 1. No evidence of recent bony injury. 2. Stable bony erosion distal 1st metatarsal head. Lionel Wood MD on October 01, 2017 at 0:17 Board Certified Radiologist. This report was verified electronically.
[2017-10-01] MEDS ORDERED: HYDR-3516 PO (00:44)
[2017-10-01 09:28] VITALS: BP 158/80; PULSE 96; RESP 16; O2SAT 95
--- NOTE | 2017-10-01 12:14 | EKG ---
Date Performed: 09/30/2017 Time Performed: 22:44:43 PTAGE: 67 years EKG: NORMAL Sinus rhythm NONSPECIFIC ST-T WAVE CHANGES BORDERLINE FIRST DEGREE AV BLOCK MINOR VARIAITON IN THE ST-T WAVE [place] GES COMPARED TO THE PRIOR TRACING. ABNORMAL ECG PREVIOUS TRACING : 05/27/2017 20.31 DOCTOR: Wicho Berger Interpretating Date/Time 10/01/2017 12:13:21
== END 2017-10-01 10:42 ==
LOC: NEPE 22:19
DX: S42.291A Other displaced fracture of upper end of right humerus, initial encounter for closed fracture (principal); M79.671 Pain in right foot; E78.00 Pure hypercholesterolemia, unspecified; F17.200 Nicotine dependence, unspecified, uncomplicated; I69.320 Aphasia following cerebral infarction; I69.351 Hemiplegia and hemiparesis following cerebral infarction affecting right dominant side; I10 Essential (primary) hypertension; R06.02 Shortness of breath; W06.XXXA Fall from bed, initial encounter; Y92.129 Unspecified place in nursing home as the place of occurrence of the external cause
CPT/HCPCS: 70450; 71010; 72125; 73030; 73502; 73630; 80053; 82550; 83880; 84484; 85025; 85610; 85730; 93005; 96374; 96375; 99285; J2270; J2405; J7030

== ENCOUNTER 2017-10-25 17:11 | Inpatient (IN) | payer MEDICARE, OTHER ==
[~2017-10-25] VITALS: Ht 165.1 cm; Wt 50.5 kg
[~2017-10-25 17:11] MED LIST changes: +HYDR-3516 PO
[2017-10-25 17:40] VITALS: BP 165/83; PULSE 73; RESP 18; TEMP 98.7; O2SAT 98
--- NOTE | 2017-10-25 18:26 | RADRPT ---
EXAM DATE/TIME: 10/25/2017 18:00 [facility] COMPARISON: CHEST SINGLE AP, September 30, 2017, 23:36. INDICATIONS : Syncope. MEDICAL HISTORY : Stroke. Hypertension. Cardiovascular disease SURGICAL HISTORY : None. ENCOUNTER: Initial ACUITY: 1 day PAIN SCORE: Non-responsive. LOCATION: Bilateral chest FINDINGS: A single view of the chest demonstrates the lungs to be symmetrically aerated without evidence of mas s, infiltrate or effusion. The cardiomediastinal contours are unremarkable. Osseous structures are intact. CONCLUSION: 1. No active disease. Carlton Early MD on October 25, 2017 at 18:23 Board Certified Radiologist. This report was verified electronically.
[2017-10-25 18:31] LABS: AUTOMATED NEUTROPHIL # 2.3 TH/MM3 (1.8-7.7); BASOPHIL % 0.7 % (0.0-2.0); EOSINOPHIL % 0.4 % (0.0-4.0); HEMATOCRIT 37.4 % (35.0-46.0); HEMOGLOBIN 13.2 GM/DL (11.6-15.3); LYMPH % 33.2 % (9.0-44.0); LYMPHOCYTE # 1.4 TH/MM3 (1.0-4.8); MEAN CELL VOLUME 89.6 FL (80.0-100.0); MEAN CORPUSCULAR HEMOGLOBIN 31.7 PG (27.0-34.0); MEAN CORPUSCULAR HGB CONC 35.4 % (32.0-36.0); MEAN PLATELET VOLUME 8.8 FL (7.0-11.0); MONO % 12.4 % (0.0-8.0); MONOCYTE # 0.5 TH/MM3 (0-0.9); NEUT % 53.3 % (16.0-70.0); PLATELET COUNT 154 TH/MM3 (150-450); RED BLOOD COUNT 4.18 MIL/MM3 (4.00-5.30); RED CELL DISTRIBUTION WIDTH 15.4 % (11.6-17.2); WHITE BLOOD COUNT 4.2 TH/MM3 (4.0-11.0)
[2017-10-25 18:37] LABS: INTERNATIONAL NORMALIZED RATIO 1.1 RATIO; PROTHROMBIN TIME - PATIENT 10.9 SEC (9.8-11.6)
[2017-10-25 19:00] LABS: BICARBONATE 28.4 MEQ/L (21.0-32.0); BLOOD UREA NITROGEN 13 MG/DL (7-18); CALCIUM 8.4 MG/DL (8.5-10.1); CHLORIDE 100 MEQ/L (98-107); CREATININE 0.76 MG/DL (0.50-1.00); GLOMERULAR FILTRATION RATE 76 ML/MIN (>89); GLUCOSE,RANDOM 89 MG/DL (74-106); SODIUM (NA) 136 MEQ/L (136-145)
--- NOTE | 2017-10-25 19:03 | RADRPT ---
EXAM DATE/TIME: 10/25/2017 18:46 [facility] COMPARISON: No previous studies available for comparison. INDICATIONS : Left arm numbness. RADIATION DOSE: 35.69 CTDIvol (mGy) MEDICAL HISTORY : Hypertension. Cardiovascular disease Renal disease SURGICAL HISTORY : Appendectomy. ENCOUNTER: Initial ACUITY: 1 day PAIN SCALE: 0/10 LOCATION: cranial TECHNIQUE: Multiple contiguous axial images were obtained of the head. Using automated exposure control and adj ustment of the mA and/or kV according to patient size, radiation dose was kept as low as reasonably a chievable to obtain optimal diagnostic quality images. DICOM format image data is available electro nically for review and comparison. FINDINGS: There is a large remote left middle cerebral artery distribution infarct. No change from September 30, 2017. No new hemorrhage or mass effect. Ventricular size is stable. There is pansinus disease that has developed since September 30. No acute bony abnormalities. CONCLUSION: 1. Stable remote left MCA infarct. 2. Sinusitis with fluid levels in the sphenoid sinus, ethmoid air cells and right maxillary sinus. Carlton Early MD on October 25, 2017 at 19:00 Board Certified Radiologist. This report was verified electronically.
[2017-10-25 19:10] VITALS: BP 194/90; PULSE 78; RESP 20; O2SAT 98
[2017-10-25 19:10] LABS: TROPONIN I LESS THAN 0.02 NG/ML (0.02-0.05)
--- NOTE | 2017-10-25 19:25 | PD ---
HPI Chief Complaint: Altered Mental Status Time Seen by Provider: 17:50 Travel History International Travel<30 days: No Contact w/Intl Traveler<30days: No Traveled to known affect area: No History of Present Illness H[facility] 67[facility] with c/o altered mental status. Pt wheeled herself out to smoke and then was found slumped over. Pt had CVA with right sided weakness and only states right. Unable to obtain further information. 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) Anxiety: Yes Depression: No Heart Rhythm Problems: Yes (SVT) Cancer: No Cardiovascular Problems: Yes (SVT, AND A MURMUR) High Cholesterol: Yes Cerebrovascular Accident: Yes Diabetes: Yes Diminished Hearing: No Endocrine: Yes Fibromyalgia: Yes Gastrointestinal Disorders: Yes (INCONCLUSIVE CELIAC) Glaucoma: No Genitourinary: Yes Hepatitis: No Hiatal Hernia: No Hypertension: Yes Immune Disorder: Yes Musculoskeletal: Yes (fibromyalgia) Neurologic: Yes Psychiatric: Yes Reproductive: No Respiratory: No Thyroid Disease: No Menopausal: Yes Ovarian Cysts: Yes Past Surgical History Abdominal Surgery: Yes Appendectomy: Yes Cardiac Surgery: No Section: Yes Ear Surgery: No Endocrine Surgery: No Eye Surgery: No Genitourinary Surgery: Yes (C SECTION AND CYSTS REMOVED FROM OVARIES) Gynecologic Surgery: Yes (FIBROID TUMOR REMOVED) Oral Surgery: No Pacemaker: No Thoracic Surgery: No Other Surgery: Yes Social History Alcohol Use: No Tobacco Use: Yes Substance Use: No Allergies-Medications (Allergen,Severity, Reaction): Coded Allergies: No Known Allergies (Verified Allergy, Unknown, 10/25/17) Reported Meds & Prescriptions Reported Meds & Active Scripts Active Hydrocodone-Acetaminophen 5-325 mg Tab 1 Tab PO Q6H PRN Valium (Diazepam) 5 Mg Tab 5 Mg PO Q12HR Lipitor (Atorvastatin Calcium) 10 Mg Tab 10 Mg PO DAILY Reported Aspirin 325 Mg Tab 325 Mg PO DAILY Review of Systems ROS Limitations: Clinical Condition Physical Exam Narrative GENERAL: 67yo F not in distress. SKIN: Focused skin assessment warm/dry. HEAD: Atraumatic. Normocephalic. EYES: Pupils equal and round at 3mm bilaterally. ENT: No nasal bleeding or discharge. Mucous membranes pink and moist. NECK: Trachea midline. No JVD. CARDIOVASCULAR: Regular rate and rhythm. No murmur appreciated. RESPIRATORY: No accessory muscle use. Clear to auscultation. Breath sounds equal bilaterally. GASTROINTESTINAL: Abdomen soft, non-tender, nondistended. MUSCULOSKELETAL: No obvious deformities. No clubbing. No cyanosis. No edema. NEUROLOGICAL: Easily arousable. Moves left arm to command. Moves left leg slightly. No movement on right side. Pt states right. Data Data Last Documented VS Vital Signs Date Time Temp Pulse Resp B/P (MAP) Pulse Ox O2 Delivery O2 Flow Rate FiO2 10/25/17 19:10 78 20 194/90 (124) 98 Room Air 10/25/17 17:40 98.7 Orders Orders Ammonia (10/25/17 17:50) Basic Metabolic Panel (Bmp) (10/25/17 17:50) Complete Blood Count With Diff (10/25/17 17:50) Prothrombin Time / Inr (Pt) (10/25/17 17:50) Act Partial Throm Time (Ptt) (10/25/17 17:50) Troponin I (10/25/17 17:50) Thyroid Stimulating Hormone (10/25/17 17:50) Urinalysis - C+S If Indicated (10/25/17 17:50) Chest, Single Ap (10/25/17 17:50) Ct Brain W/O Iv Contrast(Rout) (10/25/17 17:50) Electrocardiogram (10/25/17 ) Humerus (Min 2vws) (10/25/17 ) Forearm (2vws) (10/25/17 ) Cath For Specimen (10/25/17 19:11) Admit Order (Ed Use Only) (10/25/17 19:58) Labs Laboratory Tests Test 10/25/17 18:00 White Blood Count 4.2 TH/MM3 Red Blood Count 4.18 MIL/MM3 Hemoglobin 13.2 GM/DL Hematocrit 37.4 % Mean Corpuscular Volume 89.6 FL Mean Corpuscular Hemoglobin 31.7 PG Mean Corpuscular Hemoglobin Concent 35.4 % Red Cell Distribution Width 15.4 % Platelet Count 154 TH/MM3 Mean Platelet Volume 8.8 FL Neutrophils (%) (Auto) 53.3 % Lymphocytes (%) (Auto) 33.2 % Monocytes (%) (Auto) 12.4 % Eosinophils (%) (Auto) 0.4 % Basophils (%) (Auto) 0.7 % Neutrophils # (Auto) 2.3 TH/MM3 Lymphocytes # (Auto) 1.4 TH/MM3 Monocytes # (Auto) 0.5 TH/MM3 Eosinophils # (Auto) 0.0 TH/MM3 Basophils # (Auto) 0.0 TH/MM3 CBC Comment DIFF FINAL Differential Comment Prothrombin Time 10.9 SEC Prothromb Time International Ratio 1.1 RATIO Activated Partial Thromboplast Time 30.1 SEC Blood Urea Nitrogen 13 MG/DL Creatinine 0.76 MG/DL Random Glucose 89 MG/DL Calcium Level 8.4 MG/DL Sodium Level 136 MEQ/L Potassium Level 3.6 MEQ/L Chloride Level 100 MEQ/L Carbon Dioxide Level 28.4 MEQ/L Anion Gap 8 MEQ/L Estimat Glomerular Filtration Rate 76 ML/MIN Ammonia LESS THAN 10 MCMOL/L Troponin I LESS THAN 0.02 NG/ML Thyroid Stimulating Hormone 3rd Gen 0.709 uIU/ML MDM Medical Decision Making Medical Screen Exam Complete: Yes Emergency Medical Condition: Yes Differential Diagnosis CVA vs. ICH vs. electrolyte abnormality vs. infection Narrative Course 67yo F with history of CVA in 04/2017 and right sided weakness was found sleep over in wheelchair at [facility]. Labs reviewed, no leukocytosis. H/H normal. Ammonia low. Troponin negative. TSH normal. Glucose 89. CXR negative. CT brain showed stable remote left MCA infarct. Pt's sister Mrs. Rebecca Gabriel later arrived and said she seemed to be her baseline mental status. She is worried about the ecchymoses in right humerus and forearm. Said she fell 2 weeks ago and had fracture but never saw the ecchymose and worry about new fall. Will do xray right humerus and forearm. Distal pulses intact. Pt's sister's number is [phone]. I was informed by her sister that when pt came back from CT scan, she had an episode where she was staring in space and she was pinching her but she was not responsive. Unknown if it was a seizure but said lasted about 4 minutes and now she is back to baseline. Unknown if this is what happened at the prison. Discussed with Dr. Catalan and accepted to her service for observation for possible seizure. Diagnosis Primary Impression: Altered mental status Qualified Codes: R41.82 - Altered mental status, unspecified Admitting Information Admitting Physician Requests: Observation Марина Oconnell DO Oct 25, 2017 19:25
--- NOTE | 2017-10-25 20:08 | HHI.HP ---
[facility] Service [facility] Primary Care Physician Raymundo David MD Admission Diagnosis Possible seizure, possible TIA Diagnoses: (1) Encephalopathy Diagnosis: Principal (2) CVA (cerebral vascular accident) Diagnosis: Principal (3) HTN (hypertension) Diagnosis: Principal (4) Tobacco abuse Diagnosis: Principal Travel History International Travel<30 Days: No Contact w/Intl Traveler <30 Da: No Traveled to Known Affected Are: No History of Present Illness This is a 67-year-old female w/ a PMH of CVA w/ Residual Aphasia, Right Hemiplegia and Left Hemiparesis, HTN, DM, Bipolar Disorder and Tobacco Abuse who was sent to the ER from [facility] secondary to acute AMS. Per report, pt wheeled herself outside to smoke and was found slumped over in her wheelchair. Pt unable to provide history due to aphasia and previous CVA. No reported seizure like activity at that time. Upon arrival to ER, pt's Sister reports pt back to baseline mental status. BP 194/90, HR 78, O2 sat 98% on RA, Afebrile. CBC unremarkable. Chemistry essentially unremarkable. Troponin negative. INR 1.1. UA pending. CXR with no acute findings. CT Head was stable remote left MCA infarct. Pt was to be d/c'd back to Rehab, however had episode of "seizure" while in ER, witnessed only by pt's Sister. Sister reports pt was "staring off into space" for several minutes. No h/o seizure in the past. Review of Systems Except as stated in HPI: all other systems reviewed are Neg ROS: Unable to obtain secondary to aphasia from previous CVA. Past Family Social History Past Medical History PMH: CVA w/ Residual Aphasia, Right Hemiplegia and Left Hemiparesis, HTN, DM, Bipolar Disorder and Tobacco Abuse Past Surgical History PAST SURGICAL HISTORY: Appendectomy, , Fibroid Resection Allergies: Coded Allergies: No Known Allergies (Verified Adverse Reaction, Unknown, 09/30/17) Family History PAST FAMILY HISTORY: Reviewed. No h/o DM or CAD Social History PAST SOCIAL HISTORY: Negative for alcohol or drugs. Positive for tobacco. Physical Exam Vital Signs Vital Signs Date Time Temp Pulse Resp B/P (MAP) Pulse Ox O2 Delivery O2 Flow Rate FiO2 10/25/17 19:10 78 20 194/90 (124) 98 Room Air 10/25/17 17:40 98.7 73 18 165/83 (110) 98 Room Air Physical Exam PE: GENERAL: Middle-aged white female in no acute distress. Aphasia, at baseline HEENT: PERRLA, EOMI. No scleral icterus or conjunctival pallor. No lid lag or facial droop. CARDIOVASCULAR: Regular rate and rhythm. No obvious murmurs to auscultation. No chest tenderness to palpation. RESPIRATORY: No obvious rhonchi or wheezing. Clear to auscultation. Breath sounds equal bilaterally. GASTROINTESTINAL: Abdomen soft, non-tender, nondistended. BS normal. MUSCULOSKELETAL: Extremities without clubbing, cyanosis, or edema. No obvious deformities. NEUROLOGICAL: Awake, alert. No new focal neurologic deficits. Right hemiplegia. Left hemiparesis, some movement of LUE. Aphasia at baseline. Laboratory Laboratory Tests Test 10/25/17 18:00 10/25/17 20:00 White Blood Count 4.2 Red Blood Count 4.18 Hemoglobin 13.2 Hematocrit 37.4 Mean Corpuscular Volume 89.6 Mean Corpuscular Hemoglobin 31.7 Mean Corpuscular Hemoglobin Concent 35.4 Red Cell Distribution Width 15.4 Platelet Count 154 Mean Platelet Volume 8.8 Neutrophils (%) (Auto) 53.3 Lymphocytes (%) (Auto) 33.2 Monocytes (%) (Auto) 12.4 Eosinophils (%) (Auto) 0.4 Basophils (%) (Auto) 0.7 Neutrophils # (Auto) 2.3 Lymphocytes # (Auto) 1.4 Monocytes # (Auto) 0.5 Eosinophils # (Auto) 0.0 Basophils # (Auto) 0.0 CBC Comment DIFF FINAL Differential Comment Prothrombin Time 10.9 Prothromb Time International Ratio 1.1 Activated Partial Thromboplast Time 30.1 Blood Urea Nitrogen 13 Creatinine 0.76 Random Glucose 89 Calcium Level 8.4 Sodium Level 136 Potassium Level 3.6 Chloride Level 100 Carbon Dioxide Level 28.4 Anion Gap 8 Estimat Glomerular Filtration Rate 76 Ammonia LESS THAN 10 Troponin I LESS THAN 0.02 Thyroid Stimulating Hormone 3rd Gen 0.709 Result Diagram: 10/25/17 1800 10/25/17 1800 Caprini VTE Risk Assessment Caprini VTE Risk Assessment: No/Low Risk (score <= 1) Caprini Risk Assessment Model Point Value = 1 Point Value = 2 Point Value = 3 Point Value = 5 Age 41-60 Minor surgery BMI > 25 kg/m2 Swollen legs Varicose veins or History of unexplained or recurrent spontaneous Oral contraceptives or hormone replacement Sepsis (< 1 month) Serious lung disease, including pneumonia (< 1 month) Abnormal pulmonary function Acute myocardial infarction Congestive heart failure (< 1 month) History of inflammatory bowel disease Medical patient at bed rest Age 61-74 Arthroscopic surgery Major open surgery (> 45 min) Laparoscopic surgery (> 45 min) Malignancy Confined to bed (> 72 hours) Immobilizing plaster cast Central venous access Age >= 75 History of VTE Family history of VTE Factor V Leiden Prothrombin [id number] Lupus anticoagulant Anticardiolipin antibodies Elevated serum homocysteine Heparin-induced thrombocytopenia Other congenital or acquired thrombophilia Stroke (< 1 month) Elective arthroplasty Hip, pelvis, or leg fracture Acute spinal cord injury (< 1 month) Prophylaxis Regimen Total Risk Factor Score Risk Level Prophylaxis Regimen 0-1 Low Early ambulation 2 Moderate Order ONE of the following: *Sequential Compression Device (SCD) *Heparin 5000 units SQ BID 3-4 Higher Order ONE of the following medications: *Heparin 5000 units SQ TID *Enoxaparin/Lovenox 40 mg SQ daily (WT < 150 kg, CrCl > 30 mL/min) *Enoxaparin/Lovenox 30 mg SQ daily (WT < 150 kg, CrCl > 10-29 mL/min) *Enoxaparin/Lovenox 30 mg SQ BID (WT < 150 kg, CrCl > 30 mL/min) AND/OR *Sequential Compression Device (SCD) 5 or more Highest Order ONE of the following medications: *Heparin 5000 units SQ TID (Preferred with Epidurals) *Enoxaparin/Lovenox 40 mg SQ daily (WT < 150 kg, CrCl > 30 mL/min) *Enoxaparin/Lovenox 30 mg SQ daily (WT < 150 kg, CrCl > 10-29 mL/min) *Enoxaparin/Lovenox 30 mg SQ BID (WT < 150 kg, CrCl > 30 mL/min) AND *Sequential Compression Device (SCD) Assessment and Plan Problem List: (1) Encephalopathy ICD Code: G93.40 - Encephalopathy, unspecified (2) CVA (cerebral vascular accident) ICD Code: I63.9 - Cerebral infarction, unspecified (3) HTN (hypertension) ICD Code: I10 - Essential (primary) hypertension (4) Tobacco abuse ICD Code: Z72.0 - Tobacco use Assessment and Plan A/P: 1. Encephalopathy: per records, pt found slumped over in wheelchair, episode of "staring off" per Sister, R/o Seizure. CT Head w/ old Left MCA infarct, no acute findings. Check U/a for possible underlying UTI. Check EEG. Load w/ Keppra 1gm in light of recent CVA and possible seizure like activity. Consult Neurology for further recommendations regarding possible seizure. 2. CVA: Recent Left MCA CVA 07/2017, residual aphasia, right hemiplegia and left hemiparesis. CT Head w/ no acute findings, images reviewed by me. Continue home ASA, Statin. 3. HTN: Uncontrolled. BP 190's systolic. Lopressor 5mg IV x1 now, monitor BP. 4. Tobacco Abuse: Pt w/ ongoing tobacco abuse. Counselled. Ativan/NicoDerm prn if needed. 5. DVT Prophylaxis: SCD/Teds. 6. Social work for d/c planning as needed. 7. Previous records/labs/imaging reviewed by me, case discussed w/ ER physician at length. Beverly Catalan MD Oct 25, 2017 20:08
[2017-10-25] MEDS ORDERED: SODIUM CHLORIDE 0.9% FLUSH 10 ML FLUSH IV FLUSH PRN (20:15)
[2017-10-25] MEDS ORDERED: ONDANSETRON HCL 4 MG/2 ML VIAL IVP PRN (20:15)
[2017-10-25] MEDS ORDERED: MAGNESIUM HYDROXIDE SUSP 30 ML CUP PO PRN (20:15)
[2017-10-25] MEDS ORDERED: BISACODYL 10 MG SUPP RECTAL PRN (20:15)
[2017-10-25] MEDS ORDERED: SENNOSIDES 8.6 MG TAB PO PRN (20:15)
[2017-10-25] MEDS ORDERED: LORazepam 2 MG/ML VIAL IV PUSH PRN (20:15)
[2017-10-25] MEDS ORDERED: levETIRAcetam INJ 100 ML IV ONE (20:30)
[2017-10-25] MEDS ORDERED: METOPROLOL TARTRATE 5 MG/5 ML VIAL IV PUSH ONE (20:30)
[2017-10-25 20:33] LABS: BACTERIA, URINE OCC /hpf; BILIRUBIN, URINE NEG (NEG); BLOOD, URINE NEG (NEG); GLUCOSE,URINE NEG (NEG); KETONE, URINE NEG (NEG); NITRITE,URINE NEG (NEG); SQUAMOUS EPITHELIAL CELL URINE <1 /hpf (0-5); URINE COLOR YELLOW (YELLW/STRAW); URINE LEUKOCYTE ESTERASE NEG (NEG)
[2017-10-25 20:45] VITALS: BP 181/81; PULSE 71; RESP 20; O2SAT 98
[2017-10-25 20:54] VITALS: BP 174/73; PULSE 64; RESP 20; O2SAT 97
[2017-10-25] MEDS: SODIUM CHLOR 0.9% 1000 ML INJ 1,000 ML IV SCH (20:56)
--- NOTE | 2017-10-25 20:56 | RADRPT ---
EXAM DATE/TIME: 10/25/2017 20:03 [facility] COMPARISON: No previous studies available for comparison. INDICATIONS : Right arm pain after fall. MEDICAL HISTORY : Stroke. Hypertension. Cardiovascular disease SURGICAL HISTORY : None. ENCOUNTER: Initial ACUITY: 1 week PAIN SCORE: Non-responsive. LOCATION: Right forearm FINDINGS: Two view examination of the right forearm demonstrates no evidence of fracture or dislocation. Bony mineralization is normal. The soft tissue structures are intact. CONCLUSION: 1. No acute fracture or dislocation. No bony destructive changes. Carlton Early MD on October 25, 2017 at 20:53 Board Certified Radiologist. This report was verified electronically.
--- NOTE | 2017-10-25 20:59 | RADRPT ---
EXAM DATE/TIME: 10/25/2017 20:09 [facility] COMPARISON: SHOULDER RIGHT LTD (2VWS), September 30, 2017, INDICATIONS : Right arm pain after fall. MEDICAL HISTORY : Stroke. Hypertension. Cardiovascular disease SURGICAL HISTORY : None. ENCOUNTER: Initial ACUITY: 1 week PAIN SCORE: Non-responsive. LOCATION: Right humerus. FINDINGS: There is a subacute humeral neck fracture, slightly comminuted with early callus formation. No disloc ation. Bones osteopenic. CONCLUSION: 1. Subacute right humeral neck fracture with Callus formation. No significant change in displacement compared with September 30. Carlton Early MD on October 25, 2017 at 20:55 Board Certified Radiologist. This report was verified electronically.
[2017-10-25] MEDS: DOCUSATE SODIUM 50 MG/SENNA 8.6 MG TAB PO SCH (21:00)
[2017-10-25 21:01] VITALS: BP 168/74; PULSE 65; RESP 18; O2SAT 98
[2017-10-25 21:30] VITALS: BP 140/84; PULSE 66; RESP 17; TEMP 95.8; O2SAT 96
[2017-10-25] MEDS: SODIUM CHLORIDE 0.9% FLUSH 10 ML FLUSH IV FLUSH SCH (22:32)
[2017-10-25] MEDS: DIAZEPAM 5 MG TAB PO SCH (22:32)
[2017-10-26] VITALS (11 sets, daily range): BP systolic 124–189; BP diastolic 57–82; PULSE 62–73; RESP 16–20; TEMP 95.2–98; O2SAT 94–99
[2017-10-26] MEDS: SODIUM CHLOR 0.9% 1000 ML INJ 1,000 ML IV SCH ×2 (06:22→17:04)
[2017-10-26] MEDS: SODIUM CHLORIDE 0.9% FLUSH 10 ML FLUSH IV FLUSH SCH ×2 (08:17→21:00)
[2017-10-26] MEDS: ASPIRIN 325 MG TAB PO SCH (08:18)
[2017-10-26] MEDS: DOCUSATE SODIUM 50 MG/SENNA 8.6 MG TAB PO SCH ×2 (08:18→21:37)
[2017-10-26] MEDS: DIAZEPAM 5 MG TAB PO SCH ×2 (08:18→21:37)
[2017-10-26] MEDS: ATORVASTATIN 10 MG TAB PO SCH (08:18)
[2017-10-26] MEDS: ACETAMINOPHEN/HYDROcodone 325 MG/10 MG TAB PO PRN (11:25)
--- NOTE | 2017-10-26 13:05 | EKG ---
Date Performed: 10/25/2017 Time Performed: 18:37:18 PTAGE: 67 years EKG: Sinus rhythm with first degree AV block Borderline left axis deviation Poor R-wave progression across the precord ium PREVIOUS TRACING : 09/30/2017 22.44 Compared to prior tracing no significant change DOCTOR: Kervin Mckinney Interpretating Date/Time 10/26/2017 13:04:45
--- NOTE | 2017-10-26 13:16 | HHI.PR ---
Subjective Remarks in no acute distress. awake and alert. with dysphasia. Objective Vitals Vital Signs Date Time Temp Pulse Resp B/P (MAP) Pulse Ox O2 Delivery O2 Flow Rate FiO2 10/26/17 11:23 98.0 69 16 157/67 (97) 96 10/26/17 07:43 96.3 73 18 189/82 (117) 95 10/26/17 04:47 68 10/26/17 04:00 98.0 69 17 164/72 (102) 95 10/26/17 00:00 97.6 70 16 124/57 (79) 95 10/25/17 21:30 95.8 66 17 140/84 (102) 96 10/25/17 21:25 10/25/17 21:01 65 18 168/74 (105) 98 Room Air 10/25/17 20:54 64 20 174/73 (106) 97 Room Air 10/25/17 20:45 71 20 181/81 (114) 98 Room Air 10/25/17 19:10 78 20 194/90 (124) 98 Room Air 10/25/17 17:40 98.7 73 18 165/83 (110) 98 Room Air I/O 10/25/17 10/25/17 10/25/17 10/26/17 10/26/17 10/26/17 07:00 15:00 23:00 07:00 15:00 23:00 Intake Total 150 ml 640 ml Balance 150 ml 640 ml Intake Oral 640 ml IV Total 150 ml # Voids 2 # Bowel Movements 1 Result Diagram: 10/25/17 1800 10/25/17 1800 Imaging Last Impressions Head CT 10/25/17 1750 Signed Impressions: Service Date/Time: Wednesday, October 25, 2017 18:46 - CONCLUSION: 1. Stable remote left MCA infarct. 2. Sinusitis with fluid levels in the sphenoid sinus, ethmoid air cells and right maxillary sinus. Carlton Early MD Chest X-Ray 10/25/17 1750 Signed Impressions: Service Date/Time: Wednesday, October 25, 2017 18:00 - CONCLUSION: 1. No active disease. Carlton Early MD Radius/Ulna X-Ray 10/25/17 0000 Signed Impressions: Service Date/Time: Wednesday, October 25, 2017 20:03 - CONCLUSION: 1. No acute fracture or dislocation. No bony destructive changes. Carlton Early MD Humerus X-Ray 10/25/17 0000 Signed Impressions: Service Date/Time: Wednesday, October 25, 2017 20:09 - CONCLUSION: 1. Subacute right humeral neck fracture with Callus formation. No significant change in displacement compared with September 30. Carlton Early MD Objective Remarks GENERAL: This is a well-nourished, well-developed patient, in no apparent distress. CARDIOVASCULAR: Regular rate and regular rhythm without murmurs, gallops, or rubs. RESPIRATORY: Clear to auscultation. Breath sounds equal bilaterally. No wheezes , rales, or rhonchi. GASTROINTESTINAL: Abdomen soft, non-tender, nondistended. Normal, active bowel sounds MUSCULOSKELETAL: Extremities without clubbing, cyanosis, or edema. NEURO: Awake and alert with dysphasia. Medications and IVs Inpatient Medications Acetaminophen (Tylenol) 650 mg Q6H PRN PO FEVER/PAIN SCALE 1 TO 2; Start at 20:15 Acetaminophen/ Hydrocodone Bitart ([place] 5-325 Mg) 1 tab Q4H PRN PO PAIN SCALE 3 TO 5; Start 10/25/17 at 20:15 Acetaminophen/ Hydrocodone Bitart ([place] 10-325 Mg) 1 tab Q4H PRN PO PAIN SCALE 6 TO 10 Last administered on 10/26/17at 11:25; Start 10/25/17 at 20:15 Aspirin (Aspirin) 325 mg DAILY PO Last administered on 10/26/17at 08:18; Start at 09:00 Atorvastatin Calcium (Lipitor) 10 mg DAILY PO ; Start 10/26/17 at 09:00 Bisacodyl (Dulcolax Supp) 10 mg DAILY PRN RECTAL SEVERE CONSITIPATION; Start at 20:15 Diazepam (Valium) 5 mg Q12HR PO Last administered on 10/26/17at 08:18; Start 10/25 at 21:00 Lactulose (Lactulose Liq) 30 ml DAILY PRN PO SEVERE CONSITIPATION; Start at 20:15 Levetriacetam 100 ml @ 400 mls/hr BOLUS ONCE IV Last administered on at 21:01; Start 10/25/17 at 20:30; Stop 10/25/17 at 20:44; Status DC Lorazepam (Ativan Inj) 1 mg Q5M PRN IV PUSH SEIZURE; Start 10/25/17 at 20:15 Magnesium Hydroxide (Milk Of Chris Liq) 30 ml Q12H PRN PO Mild constipation ; Start 10/25/17 at 20:15 Metoprolol Tartrate (Lopressor Inj) 5 mg ONCE ONCE IV PUSH Last administered on 10/25/17at 20:43; Start 10/25/17 at 20:30; Stop 10/25/17 at 20:31; Status DC Ondansetron HCl (Zofran Inj) 4 mg Q6H PRN IVP NAUSEA OR VOMITING; Start at 20:15 Senna/Docusate Sodium (Aleah-Colace) 1 tab BID PO ; Start 10/25/17 at 21:00 Sennosides (Senokot) 17.2 mg Q12H PRN PO Moderate constipation; Start 10/25/17 at 20:15 Sodium Chloride (NS Flush) 2 ml BID IV FLUSH Last administered on 10/25/17at 22: 32; Start 10/25/17 at 21:00 A/P Problem List: (1) Encephalopathy ICD Code: G93.40 - Encephalopathy, unspecified (2) CVA (cerebral vascular accident) ICD Code: I63.9 - Cerebral infarction, unspecified (3) HTN (hypertension) ICD Code: I10 - Essential (primary) hypertension (4) Tobacco abuse ICD Code: Z72.0 - Tobacco use Assessment and Plan 1. Encephalopathy: per records, pt found slumped over in wheelchair, episode of "staring off" per Sister, R/o Seizure. CT Head w/ old Left MCA infarct, no acute findings. EEG pending. Loaded w/ Keppra 1gm in light of recent CVA and possible seizure like activity. Consulted Neurology for further recommendations regarding possible seizure. 2. CVA: Recent Left MCA CVA 07/2017, residual aphasia, right hemiplegia and left hemiparesis. CT Head w/ no acute findings. Continue home ASA, Statin. 3. HTN: Uncontrolled. BP 190's systolic. Lopressor 5mg IV x1 now, monitor BP. 4. Tobacco Abuse: Pt w/ ongoing tobacco abuse. Counselled. Ativan/NicoDerm prn if needed. 5. DVT Prophylaxis: SCD/Teds. Bobo Ridley MD Oct 26, 2017 13:16
[2017-10-26] MEDS ORDERED: LORazepam 2 MG/ML VIAL IV PUSH PRN (15:00)
--- NOTE | 2017-10-26 16:04 | MG ---
cc: ODIN HARTMAN M.D. Lab No: [id number] Date: 10/26/2017 Age: Sex: F Race: TECHNIQUE: 17 channel EEG. DESCRIPTION: Background rhythm reveals a symmetrical alpha rhythm with frequency of 8 Hz, amplitude 20 microvolts. There is a superimposed beta rhythm from medications. During drowsiness there is some slowing in the theta range. There are no lateralizing features. There are no epileptiform discharges present. Photic results in a normal driving response. INTERPRETATION: Overall normal EEG. The beta activity is probably medication effect. MD CAR Mariano/DEMARCUS /3:42 PM /3:48 PM
[2017-10-26 16:42] LABS: HEMATOCRIT 33.7 % (35.0-46.0); HEMOGLOBIN 11.7 GM/DL (11.6-15.3); MEAN CELL VOLUME 88.8 FL (80.0-100.0); MEAN CORPUSCULAR HEMOGLOBIN 30.8 PG (27.0-34.0); MEAN CORPUSCULAR HGB CONC 34.7 % (32.0-36.0); MEAN PLATELET VOLUME 8.6 FL (7.0-11.0); PLATELET COUNT 131 TH/MM3 (150-450); RED CELL DISTRIBUTION WIDTH 15.4 % (11.6-17.2); WHITE BLOOD COUNT 3.3 TH/MM3 (4.0-11.0)
[2017-10-26] MEDS ORDERED: GADODIAMIDE PF 287 MG/ML 20 ML VIAL (for RAD MRI) IVCONTRAST ONE (16:49)
--- NOTE | 2017-10-26 17:01 | MB ---
cc: ODIN HARTMAN DATE OF CONSULTATION 10/26/17 REASON FOR CONSULTATION Seizure. HISTORY OF PRESENT ILLNESS Ms. Rodríguez is a 67-year-old woman who has a history of previous stroke causing aphasia and right-sided weakness. She is a resident of [facility], had acute mental status change where she was found slumped over in her wheelchair. No seizure was noted at that time, but in the ER she came back to normal, was discharged back to rehab but then had a seizure witnessed by her sister while still in the ER just prior to being discharged back to rehabilitation. Therefore, she was admitted for further evaluation. At that time she was staring blankly into space. She never had a seizure in the past. PAST MEDICAL HISTORY 1. History of left hemisphere stroke with aphasia and right hemiplegia 2. Appendectomy, 3. MEDICATIONS Current are 1. Aspirin 325 mg daily. 2. Lipitor 10 mg daily. 3. Aleah-Colace 4. Valium 5. Ativan p.r.n. 6. Tylenol p.r.n. 7. Hydrocodone p.r.n. 8. Milk of magnesia. 9. Senokot, 10. Dulcolax. NEUROLOGIC EXAMINATION Blood pressure 157/67, pulse 69, respiratory rate is 16, temperature 98 degrees. Higher cortical function - she is alert. She has an expressive aphasia. Cranial nerves: Right upper motor neuron VII palsy. The pupils are equal and reactive. Extraocular movements intact. Motor exam - she has a dense right hemiplegia, 1/5 strength right arm and right leg with normal strength on the left. Reflexes are symmetric. IMAGING STUDIES CT of the brain - remote left MCA infarction, sinusitis, no acute change. No hemorrhage. LABORATORY DATA White count is 4200, hemoglobin 13.2, hematocrit 37%, platelets 154,000, PT 10.9, INR 1.1, APTT 30.1. Sodium is 136, potassium 3.6, chloride 100, CO2 28.4, BUN is 13, creatinine 0.76, GFR 76, glucose 89, troponin less than 0.02, PT 10.9, INR 1.1, APTT 30. IMPRESSION New-onset probable focal seizure probably secondary to her previous stroke. RECOMMENDATIONS We will start the patient on Keppra. Also obtain an MRI of the brain as well as an EEG. MD MICHELLE Mariano /2:39 PM /4:42 PM
[2017-10-26] MEDS: levETIRAcetam INJ 100 ML IV SCH (17:04)
[2017-10-26 17:16] LABS: ALBUMIN 2.6 GM/DL (3.4-5.0); ALKALINE PHOSPHATASE 93 U/L (45-117); ALT (GPT) 12 U/L (10-53); AST (GOT) 16 U/L (15-37); BICARBONATE 28.1 MEQ/L (21.0-32.0); BLOOD UREA NITROGEN 13 MG/DL (7-18); CALCIUM 7.8 MG/DL (8.5-10.1); CHLORIDE 108 MEQ/L (98-107); CREATININE 0.67 MG/DL (0.50-1.00); GLOMERULAR FILTRATION RATE 88 ML/MIN (>89); GLUCOSE,RANDOM 102 MG/DL (74-106); SODIUM (NA) 143 MEQ/L (136-145); TOTAL BILIRUBIN ADULT 0.2 MG/DL (0.2-1.0); TOTAL PROTEIN 5.6 GM/DL (6.4-8.2)
--- NOTE | 2017-10-26 17:32 | RADRPT ---
EXAM DATE/TIME: 10/26/2017 16:34 [facility] COMPARISON: MRI BRAIN W & W/O CONTRAST, January 24, 2017, 9:26. INDICATIONS : Seizures. CONTRAST: 15 cc Omniscan (gadodiamide) IV MEDICAL HISTORY : Hypertension. Diabetes mellitus type 2. SURGICAL HISTORY : Arthroscopy. Fibroid and ovarian cyst removed. ENCOUNTER: Initial ACUITY: 2 day PAIN SCORE: 0/10 LOCATION: cranial TECHNIQUE: Multiplanar, multisequence MRI of the brain was performed both prior to and following the administrat ion of paramagnetic contrast. FINDINGS: There is a large old infarct involving the entire right middle cerebral artery distribution with a fo helga area of restricted diffusion in the posterior left frontal region reflect extension of the previo usly seen infarct. No acute hemorrhage is identified. There is no mass effect or midline shift. The c raniocervical junction and midline structures are unremarkable. Following the administration of contr ast no abnormal enhancement is identified. As mucosal disease or air fluid levels in the frontal sinu ses sphenoid sinus and ethmoid sinus. Posterior fossa structures are unremarkable. 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 There is a s mall focus of restricted diffusion in the posterior left frontal region without hemorrhage characteri stic of extension of the infarct. Pansinusitis Soren Rose MD on October 26, 2017 at 17:26 Board Certified Radiologist. This report was verified electronically.
[2017-10-26 17:37] LABS: BANDS 1 % (0-6); LYMPHOCYTES 72 % (9-44); MONOCYTES 6 % (0-8); NEUTROPHIL # MANUAL DIFF 0.7 TH/MM3 (1.8-7.7); POLYS (SEG NEUTROPHILS) 21 % (16-70)
[2017-10-27] VITALS (12 sets, daily range): BP systolic 138–197; BP diastolic 64–88; PULSE 57–78; RESP 16–18; TEMP 96.1–97.8; O2SAT 94–98
[2017-10-27] MEDS: SODIUM CHLOR 0.9% 1000 ML INJ 1,000 ML IV SCH ×4 (03:00→23:00)
[2017-10-27] MEDS: ACETAMINOPHEN/HYDROcodone 325 MG/10 MG TAB PO PRN ×2 (04:03→13:23)
[2017-10-27] MEDS: levETIRAcetam INJ 100 ML IV SCH (04:03)
[2017-10-27] MEDS: ATORVASTATIN 10 MG TAB PO SCH (09:00)
[2017-10-27] MEDS: DOCUSATE SODIUM 50 MG/SENNA 8.6 MG TAB PO SCH ×2 (09:00→20:40)
[2017-10-27] MEDS: SODIUM CHLORIDE 0.9% FLUSH 10 ML FLUSH IV FLUSH SCH ×3 (09:00→21:00)
[2017-10-27] MEDS: ASPIRIN 325 MG TAB PO SCH (09:33)
[2017-10-27] MEDS: levETIRAcetam 500 MG TAB PO SCH ×2 (09:34→20:40)
[2017-10-27] MEDS: DIAZEPAM 5 MG TAB PO SCH ×2 (09:34→20:40)
--- NOTE | 2017-10-27 12:50 | HHI.PR ---
Review/Management Diagnosis sz--continue keppra new left hemisphere cva Plan conitneu keppra check carotid US, echocardiogram , lipid panel start plavix 75 mg daily. monitor cardiac telemetry --r/o afib Diagnosis/Plan: Subjective Subjective Comments No acute events reported no sz Active Medications Current Medications Medications (Trade) Dose Ordered Sig/Dylon Route Start Time Stop Time Status Last Admin (Ativan Inj) 1 mg Q5M PRN IV PUSH 10/25/17 20:15 Sodium Chloride 1,000 ml @ 100 mls/hr Q10H IV 10/25/17 21:00 10/26/17 17:04 (NS Flush) 2 ml UNSCH PRN IV FLUSH 10/25/17 20:15 (NS Flush) 2 ml BID IV FLUSH 10/25/17 21:00 10/25/17 22:32 (Zofran Inj) 4 mg Q6H PRN IVP 10/25/17 20:15 (Tylenol) 650 mg Q6H PRN PO 10/25/17 20:15 ([place] 5-325 Mg) 1 tab Q4H PRN PO 10/25/17 20:15 ([place] 10-325 Mg) 1 tab Q4H PRN PO 10/25/17 20:15 10/27/17 04:03 (Aleah-Colace) 1 tab BID PO 10/25/17 21:00 10/26/17 21:37 (Milk Of Magnesia Liq) 30 ml Q12H PRN PO 10/25/17 20:15 (Senokot) 17.2 mg Q12H PRN PO 10/25/17 20:15 (Dulcolax Supp) 10 mg DAILY PRN RECTAL 10/25/17 20:15 (Lactulose Liq) 30 ml DAILY PRN PO 10/25/17 20:15 (Aspirin) 325 mg DAILY PO 10/26/17 09:00 10/27/17 09:33 (Lipitor) 10 mg DAILY PO 10/26/17 09:00 (Valium) 5 mg Q12HR PO 10/25/17 21:00 10/27/17 09:34 (Ativan Inj) 1 mg Q6HR PRN IV PUSH 10/26/17 15:00 (Keppra) 500 mg Q12HR PO 10/27/17 09:00 10/27/17 09:34 Allergies Allergies Coded Allergies No Known Allergies (Verified Allergy, Unknown, 10/25/17) Exam I&O / VS Vital Signs Date Time Temp Pulse Resp B/P (MAP) Pulse Ox O2 Delivery O2 Flow Rate FiO2 10/27/17 10:20 60 10/27/17 09:00 97.3 63 18 162/74 (103) 97 10/27/17 03:50 96.7 69 18 174/64 (100) 96 10/27/17 00:28 96.1 73 18 197/88 (124) 98 10/27/17 00:00 78 10/26/17 20:53 96.2 62 18 172/74 (106) 99 10/26/17 20:00 66 10/26/17 17:21 95.2 62 20 156/74 (101) 94 Respiratory: Lungs CTA, Non-labored respirations, BS equal Cardiology: Normal rate, Normal peripheral perfusion, Regular Rhythm Musculoskeletal: Swelling Exam Comments alert, speech aphasic CN--right UMN 7 palsey MOTOR 2/5 RUE and RLE Objective Radiology Results MRI --old left cva with encephalomalacia. acute stroke left frontal area. Micro and Labs Laboratory Tests Test 10/26/17 16:06 White Blood Count 3.3 Red Blood Count 3.80 Hemoglobin 11.7 Hematocrit 33.7 Mean Corpuscular Volume 88.8 Mean Corpuscular Hemoglobin 30.8 Mean Corpuscular Hemoglobin Concent 34.7 Red Cell Distribution Width 15.4 Platelet Count 131 Mean Platelet Volume 8.6 CBC Comment AUTO DIFF Differential Total Cells Counted 100 Neutrophils % (Manual) 21 Band Neutrophils % 1 Lymphocytes % 72 Monocytes % 6 Neutrophils # (Manual) 0.7 Differential Comment FINAL DIFF MANUAL Blood Urea Nitrogen 13 Creatinine 0.67 Random Glucose 102 Total Protein 5.6 Albumin 2.6 Calcium Level 7.8 Alkaline Phosphatase 93 Aspartate Amino Transf (AST/SGOT) 16 Alanine Aminotransferase (ALT/SGPT) 12 Total Bilirubin 0.2 Sodium Level 143 Potassium Level 3.4 Chloride Level 108 Carbon Dioxide Level 28.1 Anion Gap 7 Estimat Glomerular Filtration Rate 88 Date/Time Source Procedure Growth Status 10/25/17 20:00 Urine Catheterized Urine Urine Culture - Final 10-50,000 CFU/ML MIXED GRAM POSITIVE ... Complete Figueroa Hernández MD PhD Oct 27, 2017 12:50
[2017-10-27] MEDS ORDERED: CLOPIDOGREL 75 MG TAB PO SCH (13:00)
[2017-10-27] MEDS ORDERED: GLUCAGON 1 MG/ML VIAL OTHER PRN ×2 (13:00→21:00)
[2017-10-27] MEDS ORDERED: SODIUM CHLORIDE 0.9% FLUSH 10 ML FLUSH IV FLUSH PRN ×2 (13:00→21:00)
[2017-10-27] MEDS ORDERED: DEXTROSE 50% IN WATER 50 ML VIAL(D50) IV PUSH PRN ×2 (13:00→21:00)
--- NOTE | 2017-10-27 13:18 | HHI.PR ---
Subjective Remarks in no acute distress. clinically no change. MRI brain noted. Objective Vitals Vital Signs Date Time Temp Pulse Resp B/P (MAP) Pulse Ox O2 Delivery O2 Flow Rate FiO2 10/27/17 10:20 60 10/27/17 09:00 97.3 63 18 162/74 (103) 97 10/27/17 03:50 96.7 69 18 174/64 (100) 96 10/27/17 00:28 96.1 73 18 197/88 (124) 98 10/27/17 00:00 78 10/26/17 20:53 96.2 62 18 172/74 (106) 99 10/26/17 20:00 66 10/26/17 17:21 95.2 62 20 156/74 (101) 94 I/O 10/26/17 10/26/17 10/26/17 10/27/17 10/27/17 10/27/17 07:00 15:00 23:00 07:00 15:00 23:00 Intake Total 640 ml 100 ml Balance 640 ml 100 ml Intake Oral 640 ml IV Total 100 ml # Voids 2 3 # Bowel Movements 1 Result Diagram: 10/26/17 1606 10/26/17 1606 Imaging Last Impressions Brain MRI 10/26/17 0000 Signed Impressions: Service Date/Time: Thursday, October 26, 2017 16:34 - CONCLUSION: Cystic encephalomalacia involving large left middle cerebral artery ischemic infarction. There is a small focus of restricted diffusion in the posterior left frontal region without hemorrhage characteristic of extension of the infarct. Pansinusitis Soren Rose MD Head CT 10/25/17 1750 Signed Impressions: Service Date/Time: Wednesday, October 25, 2017 18:46 - CONCLUSION: 1. Stable remote left MCA infarct. 2. Sinusitis with fluid levels in the sphenoid sinus, ethmoid air cells and right maxillary sinus. Carlton Early MD Chest X-Ray 10/25/17 1750 Signed Impressions: Service Date/Time: Wednesday, October 25, 2017 18:00 - CONCLUSION: 1. No active disease. Carlton Early MD Radius/Ulna X-Ray 10/25/17 0000 Signed Impressions: Service Date/Time: Wednesday, October 25, 2017 20:03 - CONCLUSION: 1. No acute fracture or dislocation. No bony destructive changes. Carlton Early MD Humerus X-Ray 10/25/17 0000 Signed Impressions: Service Date/Time: Wednesday, October 25, 2017 20:09 - CONCLUSION: 1. Subacute right humeral neck fracture with Callus formation. No significant change in displacement compared with September 30. Carlton Early MD Objective Remarks GENERAL: This is a well-nourished, well-developed patient, in no apparent distress. CARDIOVASCULAR: Regular rate and regular rhythm without murmurs, gallops, or rubs. RESPIRATORY: Clear to auscultation. Breath sounds equal bilaterally. No wheezes , rales, or rhonchi. GASTROINTESTINAL: Abdomen soft, non-tender, nondistended. Normal, active bowel sounds MUSCULOSKELETAL: Extremities without clubbing, cyanosis, or edema. NEURO: Awake and alert with dysphasia. Medications and IVs Inpatient Medications Acetaminophen (Tylenol) 650 mg Q6H PRN PO FEVER/PAIN SCALE 1 TO 2; Start at 20:15 Acetaminophen/ Hydrocodone Bitart ([place] 5-325 Mg) 1 tab Q4H PRN PO PAIN SCALE 3 TO 5; Start 10/25/17 at 20:15 Acetaminophen/ Hydrocodone Bitart ([place] 10-325 Mg) 1 tab Q4H PRN PO PAIN SCALE 6 TO 10 Last administered on 10/27/17at 04:03; Start 10/25/17 at 20:15 Aspirin (Aspirin) 325 mg DAILY PO Last administered on 10/27/17at 09:33; Start at 09:00 Atorvastatin Calcium (Lipitor) 10 mg DAILY PO ; Start 10/26/17 at 09:00 Bisacodyl (Dulcolax Supp) 10 mg DAILY PRN RECTAL SEVERE CONSITIPATION; Start at 20:15 Clopidogrel Bisulfate (Plavix) 75 mg DAILY PO ; Start 10/27/17 at 13:00 Dextrose (D50w (Vial) Inj) 50 ml UNSCH PRN IV PUSH HYPOGLYCEMIA-SEE COMMENTS; Start 10/27/17 at 13:00 Diazepam (Valium) 5 mg Q12HR PO Last administered on 10/27/17at 09:34; Start 10/25 at 21:00 Glucagon (Glucagon Inj) 1 mg UNSCH PRN OTHER HYPOGLYCEMIA-SEE COMMENTS; Start 10/27/17 at 13:00 Insulin Aspart (NovoLOG SUPPLEMENTAL SCALE) 1 ACHS SQ ; Start 10/27/17 at 17:00 Lactulose (Lactulose Liq) 30 ml DAILY PRN PO SEVERE CONSITIPATION; Start at 20:15 Levetriacetam (Keppra) 500 mg Q12HR PO Last administered on 10/27/17at 09:34; Start 10/27/17 at 09:00 Lorazepam (Ativan Inj) 1 mg Q6HR PRN IV PUSH SEIZURES; Start 10/26/17 at 15:00 Magnesium Hydroxide (Milk Of Magnesia Liq) 30 ml Q12H PRN PO Mild constipation ; Start 10/25/17 at 20:15 Metoprolol Tartrate (Lopressor Inj) 5 mg ONCE ONCE IV PUSH Last administered on 10/25/17at 20:43; Start 10/25/17 at 20:30; Stop 10/25/17 at 20:31; Status DC Ondansetron HCl (Zofran Inj) 4 mg Q6H PRN IVP NAUSEA OR VOMITING; Start at 20:15 Senna/Docusate Sodium (Aleah-Colace) 1 tab BID PO Last administered on 10/26/17at 21:37; Start 10/25/17 at 21:00 Sennosides (Senokot) 17.2 mg Q12H PRN PO Moderate constipation; Start 10/25/17 at 20:15 Sodium Chloride (NS Flush) 2 ml UNSCH PRN IV FLUSH FLUSH AFTER USING IV ACCESS ; Start 10/27/17 at 13:00 A/P Problem List: (1) Encephalopathy ICD Code: G93.40 - Encephalopathy, unspecified (2) CVA (cerebral vascular accident) ICD Code: I63.9 - Cerebral infarction, unspecified (3) HTN (hypertension) ICD Code: I10 - Essential (primary) hypertension (4) Tobacco abuse ICD Code: Z72.0 - Tobacco use Assessment and Plan A/P 1. new left hemisphere CVA- patient with Recent Left MCA CVA 07/2017, residual aphasia, right hemiplegia and left hemiparesis. continue aspirin and statin- and neuro-checks- neurology consult appreciated; started on Plavix- will check carotid doppler, echo and lipid panel- continue telemetry- PT / ST consulted. 2. seizure; continue keppra- neurology following. 3. HTN: permissive hypertension- vasotec pen. 4. DVT Prophylaxis: with Bobo Encarnacion MD Oct 27, 2017 13:18
[2017-10-27 13:34] LABS: CHOLESTEROL/ HDL RATIO 4.65 RATIO; HDL CHOLESTEROL 30.1 MG/DL (40.0-60.0)
--- NOTE | 2017-10-27 16:48 | RADRPT ---
EXAM DATE/TIME: 10/27/2017 16:16 [facility] COMPARISON: US CAROTID ARTERIES, January 23, 2017, 10:37. INDICATIONS : Cerebrovascular accident. MEDICAL HISTORY : Hypercholesterolemia. Hypertension. Fibromyalgia. Ovarian cysts. Measles. SURGICAL HISTORY : Appendectomy. section. Left knee arthroscopy. ENCOUNTER: Initial ACUITY: 1 day PAIN SCORE: 2/10 LOCATION: Bilateral neck PEAK SYSTOLIC VELOCITIES (cm/sec): ICA/CCA RATIO: Right: 1.1 Left: UTO ICA: Right: 107 Left: UTO CCA: Right: 94 Left: 66 ECA: Right: 83 Left: 105 VERTEBRAL: Right: 49 antegrade Left: 36 antegrade Elevated flow velocities and ICA/CCA ratios have been found to correlate with increased degrees of vessel stenosis, calculated as percentage of diameter relative to a normal segment of distal ICA/CCA FINDINGS: Ultrasound of the carotid arteries was performed bilaterally using real-time Doppler and color Dopple r imaging. Examination of the right carotid artery demonstrates moderate fibrous and calcific plaque within the bifurcation. No waveform abnormalities are identified and no spectral broadening is seen. Examination of the left carotid artery demonstrates moderate fibrous plaque within the bulb. There ar e findings of occlusion of the left internal carotid artery. There is antegrade flow in both vertebral arteries. CONCLUSION: 1. Findings of left carotid occlusion. CT angiography of the carotid arteries the brain is recommende d for further evaluation Soren Rose MD on October 27, 2017 at 16:45 Board Certified Radiologist. This report was verified electronically.
[2017-10-27] MEDS: INSULIN ASPART SUPPLEMENTAL SCALE SQ SCH ×3 (17:00→21:00)
[2017-10-27] MEDS ORDERED: IOHEXOL 350 MG/ML 10 ML VIAL (for RAD DIAG) IVCONTRAST ONE (17:51)
[2017-10-27 17:59] LABS: AUTOMATED NEUTROPHIL # 0.8 TH/MM3 (1.8-7.7); BASOPHIL % 0.3 % (0.0-2.0); EOSINOPHIL % 1.2 % (0.0-4.0); HEMATOCRIT 33.6 % (35.0-46.0); LYMPH % 63.2 % (9.0-44.0); LYMPHOCYTE # 1.9 TH/MM3 (1.0-4.8); MEAN CELL VOLUME 88.2 FL (80.0-100.0); MEAN CORPUSCULAR HEMOGLOBIN 31.6 PG (27.0-34.0); MEAN CORPUSCULAR HGB CONC 35.8 % (32.0-36.0); MEAN PLATELET VOLUME 8.6 FL (7.0-11.0); MONO % 8.8 % (0.0-8.0); MONOCYTE # 0.3 TH/MM3 (0-0.9); NEUT % 26.5 % (16.0-70.0); PLATELET COUNT 138 TH/MM3 (150-450); RED BLOOD COUNT 3.81 MIL/MM3 (4.00-5.30); RED CELL DISTRIBUTION WIDTH 14.8 % (11.6-17.2); WHITE BLOOD COUNT 3.1 TH/MM3 (4.0-11.0)
--- NOTE | 2017-10-27 18:04 | RADRPT ---
EXAM DATE/TIME: 10/27/2017 17:34 [facility] COMPARISON: CT BRAIN W/O CONTRAST, September 30, 2017, 23:03. CT BRAIN W/O CONTRAST, October 25, 2017, 18:46. INDICATIONS : Stroke alert, flacid left side, asphasia RADIATION DOSE: 36.01 CTDIvol (mGy) This report was [place] [phone] at 1755 MEDICAL HISTORY : Non-responsive. SURGICAL HISTORY : Non-responsive. ENCOUNTER: Initial ACUITY: 1 day PAIN SCALE: Non-responsive LOCATION: Left arm TECHNIQUE: Multiple contiguous axial images were obtained of the head. Using automated exposure control and adj ustment of the mA and/or kV according to patient size, radiation dose was kept as low as reasonably a chievable to obtain optimal diagnostic quality images. DICOM format image data is available electro nically for review and comparison. FINDINGS: There is a large area of cystic and tip malacia involving the entire left middle cerebral artery dist ribution. This is unchanged from the prior study area no acute infarction is seen. There is ex vacuo dilatation of the body of the left lateral ventricle. Posterior fossa structures are unremarkable. Th ere is benign-appearing mucosal disease in the maxillary antra , ethmoid air cells and sphenoid sinus bilaterally. CONCLUSION: 1. No evidence of acute right-sided infarction. Cystic encephalomalacia involving the left middle cer ebral artery distribution unchanged 2. Pansinusitis Soren Rose MD on October 27, 2017 at 17:56 Board Certified Radiologist. This report was verified electronically.
[2017-10-27 18:06] LABS: ALBUMIN 2.7 GM/DL (3.4-5.0); ALT (GPT) 20 U/L (10-53); AST (GOT) 27 U/L (15-37); BICARBONATE 27.8 MEQ/L (21.0-32.0); BLOOD UREA NITROGEN 11 MG/DL (7-18); CALCIUM 7.8 MG/DL (8.5-10.1); CHLORIDE 108 MEQ/L (98-107); CREATININE 0.66 MG/DL (0.50-1.00); GLOMERULAR FILTRATION RATE 89 ML/MIN (>89); GLUCOSE,RANDOM 87 MG/DL (74-106); SODIUM (NA) 143 MEQ/L (136-145)
[2017-10-27 18:10] LABS: ALKALINE PHOSPHATASE 91 U/L (45-117); TOTAL BILIRUBIN ADULT 0.3 MG/DL (0.2-1.0); TOTAL PROTEIN 5.9 GM/DL (6.4-8.2); TROPONIN I LESS THAN 0.02 NG/ML (0.02-0.05)
--- NOTE | 2017-10-27 18:18 | RADRPT ---
EXAM DATE/TIME: 10/27/2017 17:42 [facility] COMPARISON: CTA BRAIN W 3D RECON, May 21, 2017, 11:18. INDICATIONS : Stroke alert; left side weakness, expressive aphagia. IV CONTRAST: 98 cc Omnipaque 350 (iohexol) IV ; Cumulative dose for multiple exams. RADIATION DOSE: 26.93 CTDIvol (mGy) ; Combined studies MEDICAL HISTORY : Stroke. Cardiovascular disease Diabetes mellitus type 2.SVT. SURGICAL HISTORY : None. ENCOUNTER: Initial ACUITY: 1 day PAIN SCALE: Non-responsive LOCATION: cranial TECHNIQUE: Volumetric scanning was performed using a multi-row detector CT scanner. The data was post processed with a variety of visualization algorithms including full volume maximum intensity projection, multi -planar sliding thin slab reformation, curved planar reformation, and surface rendering techniques. Using automated exposure control and adjustment of the mA and/or kV according to patient size, radiat ion dose was kept as low as reasonably achievable to obtain optimal diagnostic quality images. DICO M format image data is available electronically for review and comparison. FINDINGS: There is excellent visualization of the major intracranial arteries out to the second-order branch ve ssels. The left internal carotid artery is occluded. No skin reconstitution of the supraclinoid segment. Mar kedly diminished flow is identified in the left middle cerebral artery. There is poor filling of the left middle cerebral artery branches. Diffuse hypodensities identified in the left cervical hemispher e consistent with an evolving infarct. Right right cerebral circulation is patent. Vertebrobasilar circulation is patent. CONCLUSION: 1. Occluded intracranial segment of the left internal carotid artery. 2. Very scant flow in the left middle cerebral artery distribution with proximal MCA occlusion. 3. Evolving large left MCA infarct. Price Cee MD on October 27, 2017 at 18:11 Board Certified Radiologist. This report was verified electronically.
--- NOTE | 2017-10-27 18:22 | RADRPT ---
EXAM DATE/TIME: 10/27/2017 17:42 [facility] COMPARISON: CT BRAIN W/O CONTRAST, October 25, 2017, 18:46. CT BRAIN W/O CONTRAST, October 27, 2017, 17:34. MRI BRAIN W & W/O CONTRAST, October 26, 2017, 16:34. CTA BRAIN W 3D RECON, May 21, 2017, 11:18. CT A CAROTID ARTERIES W 3D RECON, May 21, 2017, 11:18. INDICATIONS : Stroke alert; left side weakness, expressive aphagia. IV CONTRAST: 98 cc Omnipaque 350 (iohexol) IV ; Cumulative dose for multiple exams. RADIATION DOSE: 26.93 CTDIvol (mGy) ; Combined studies MEDICAL HISTORY : Stroke. Hypertension. Diabetes mellitus type 2.SVT. SURGICAL HISTORY : None. ENCOUNTER: Initial ACUITY: 1 day PAIN SCALE: Non-responsive LOCATION: neck Elevated flow velocities and ICA/CCA ratios have been found to correlate with increased degrees of vessel stenosis, calculated as percentage of diameter relative to a normal segment of distal ICA/CCA. TECHNIQUE: Volumetric scanning was performed using a multirow detector CT scanner. The data was post processed with a variety of visualization algorithms including full-volume maximum intensity projection, multip lanar sliding thin-slab reformation, curved-planar reformation, and surface-rendering techniques. Us ing automated exposure control and adjustment of the mA and/or kV according to patient size, radiatio n dose was kept as low as reasonably achievable to obtain optimal diagnostic quality images. DICOM f ormat image data is available electronically for review and comparison. FINDINGS: AORTIC ARCH: There is a three-vessel origin of the great vessels from the aorta. No evidence of ostial narrowing. RIGHT CAROTID: Mild eccentric calcified plaque is identified in the right carotid bifurcation. There is mild narrowi ng at the origin of the right internal carotid artery measuring roughly 30%. LEFT CAROTID: Calcified plaque is noted at the origin of the left internal carotid artery. The cervical segment of the left internal carotid arteries completely occluded. Left common carotid artery is patent. VERTEBRALS: The vertebral arteries have a symmetric diameter. No stenotic lesions are seen. CONCLUSION: 1. Occluded left internal carotid artery 2. Mild narrowing at the origin of the right internal carotid artery measuring 30%. 3. Patent vertebral arteries with good flow. Price Cee MD on October 27, 2017 at 18:15 Board Certified Radiologist. This report was verified electronically.
[2017-10-27 18:29] LABS: INTERNATIONAL NORMALIZED RATIO 1.1 RATIO; PROTHROMBIN TIME - PATIENT 10.8 SEC (9.8-11.6)
[2017-10-27 19:01] LABS: BANDS 2 % (0-6); LYMPHOCYTES 55 % (9-44); MONOCYTES 7 % (0-8); NEUTROPHIL # MANUAL DIFF 1.1 TH/MM3 (1.8-7.7); POLYS (SEG NEUTROPHILS) 35 % (16-70)
--- NOTE | 2017-10-27 20:53 | HHI.PR ---
Review/Management Diagnosis sz--continue keppra new left hemisphere cva possible tia this evening related to left carotid occlusion Plan indyitneu keppra start iv heparin and consider coumadin retirement stop plavix and heparin sub q. continue aspirin Diagnosis/Plan: Subjective Subjective Comments Pt had sudden decrease LOC, was not moving right or left side Active Medications Current Medications Medications (Trade) Dose Ordered Sig/Dylon Route Start Time Stop Time Status Last Admin (Ativan Inj) 1 mg Q5M PRN IV PUSH 10/25/17 20:15 Sodium Chloride 1,000 ml @ 100 mls/hr Q10H IV 10/25/17 21:00 10/27/17 14:18 (NS Flush) 2 ml BID IV FLUSH 10/25/17 21:00 10/27/17 20:20 (Zofran Inj) 4 mg Q6H PRN IVP 10/25/17 20:15 (Tylenol) 650 mg Q6H PRN PO 10/25/17 20:15 ([place] 5-325 Mg) 1 tab Q4H PRN PO 10/25/17 20:15 ([place] 10-325 Mg) 1 tab Q4H PRN PO 10/25/17 20:15 10/27/17 13:23 (Aleah-Colace) 1 tab BID PO 10/25/17 21:00 10/27/17 20:40 (Milk Of Magnesia Liq) 30 ml Q12H PRN PO 10/25/17 20:15 (Senokot) 17.2 mg Q12H PRN PO 10/25/17 20:15 (Dulcolax Supp) 10 mg DAILY PRN RECTAL 10/25/17 20:15 (Lactulose Liq) 30 ml DAILY PRN PO 10/25/17 20:15 (Aspirin) 325 mg DAILY PO 10/26/17 09:00 10/27/17 09:33 (Lipitor) 10 mg DAILY PO 10/26/17 09:00 (Valium) 5 mg Q12HR PO 10/25/17 21:00 10/27/17 20:40 (Ativan Inj) 1 mg Q6HR PRN IV PUSH 10/26/17 15:00 (Keppra) 500 mg Q12HR PO 10/27/17 09:00 10/27/17 20:40 (Plavix) 75 mg DAILY PO 10/27/17 13:00 10/27/17 13:23 (NS Flush) 2 ml UNSCH PRN IV FLUSH 10/27/17 13:00 (NovoLOG SUPPLEMENTAL SCALE) 1 ACHS SQ 10/27/17 17:00 (D50w (Vial) Inj) 50 ml UNSCH PRN IV PUSH 10/27/17 13:00 (Glucagon Inj) 1 mg UNSCH PRN OTHER 10/27/17 13:00 (Heparin Inj) 5,000 units Q12HR SQ 10/27/17 21:00 10/27/17 20:40 (Vasotec Inj) 1.25 mg Q8H PRN IV PUSH 10/27/17 13:45 Allergies Allergies Coded Allergies No Known Allergies (Verified Allergy, Unknown, 10/25/17) Exam I&O / VS Vital Signs Date Time Temp Pulse Resp B/P (MAP) Pulse Ox O2 Delivery O2 Flow Rate FiO2 10/27/17 17:22 65 155/72 (99) 94 10/27/17 15:51 57 10/27/17 13:18 97.3 62 18 138/64 (88) 96 10/27/17 12:00 59 10/27/17 10:20 60 10/27/17 09:00 97.3 63 18 162/74 (103) 97 10/27/17 03:50 96.7 69 18 174/64 (100) 96 10/27/17 00:28 96.1 73 18 197/88 (124) 98 10/27/17 00:00 78 10/26/17 20:53 96.2 62 18 172/74 (106) 99 Respiratory: Lungs CTA, Non-labored respirations, BS equal Cardiology: Normal rate, Normal peripheral perfusion, Regular Rhythm Musculoskeletal: Swelling Exam Comments she is now improved and is alert, speech aphasic CN--right UMN 7 palsey MOTOR 2/5 RUE and RLE Objective Radiology Results CTA---oclluded left intracranial internal carotid artery with scant flow through left MCA CT brain --chronic encephalomalacia left mca territory Micro and Labs Laboratory Tests Test 10/27/17 12:55 10/27/17 17:30 Triglycerides Level 210 Cholesterol Level 140 LDL Cholesterol 68 HDL Cholesterol 30.1 Cholesterol/HDL Ratio 4.65 White Blood Count 3.1 Red Blood Count 3.81 Hemoglobin 12.0 Bedside Hemoglobin 10.5 Hematocrit 33.6 Bedside Hematocrit 31.0 Mean Corpuscular Volume 88.2 Mean Corpuscular Hemoglobin 31.6 Mean Corpuscular Hemoglobin Concent 35.8 Red Cell Distribution Width 14.8 Platelet Count 138 Mean Platelet Volume 8.6 Neutrophils (%) (Auto) 26.5 Lymphocytes (%) (Auto) 63.2 Monocytes (%) (Auto) 8.8 Eosinophils (%) (Auto) 1.2 Basophils (%) (Auto) 0.3 Neutrophils # (Auto) 0.8 Lymphocytes # (Auto) 1.9 Monocytes # (Auto) 0.3 Eosinophils # (Auto) 0.0 Basophils # (Auto) 0.0 CBC Comment AUTO DIFF Differential Total Cells Counted 100 Neutrophils % (Manual) 35 Band Neutrophils % 2 Lymphocytes % 55 Monocytes % 7 Eosinophils % 1 Neutrophils # (Manual) 1.1 Differential Comment FINAL DIFF MANUAL Atypical Lymphocytes Platelet Estimate LOW Platelet Morphology Comment NORMAL Prothrombin Time 10.8 Prothromb Time International Ratio 1.1 Bedside Sodium 142 Blood Urea Nitrogen 11 Creatinine 0.66 Random Glucose 87 Total Protein 5.9 Albumin 2.7 Calcium Level 7.8 Alkaline Phosphatase 91 Aspartate Amino Transf (AST/SGOT) 27 Alanine Aminotransferase (ALT/SGPT) 20 Total Bilirubin 0.3 Sodium Level 143 Potassium Level 3.5 Chloride Level 108 Carbon Dioxide Level 27.8 Bedside Potassium 3.5 Bedside Chloride 102 Anion Gap 7 Bedside Blood Urea Nitrogen 10 Bedside Creatinine 0.8 Estimat Glomerular Filtration Rate 89 Bedside Glucose 90 Troponin I LESS THAN 0.02 Date/Time Source Procedure Growth Status 10/25/17 20:00 Urine Catheterized Urine Urine Culture - Final 10-50,000 CFU/ML MIXED GRAM POSITIVE ... Complete Figueroa Hernández MD PhD Oct 27, 2017 20:53
[2017-10-27] MEDS ORDERED: HEPARIN SODIUM - SQ 10,000 UNITS/ML VIAL SQ SCH (21:00)
[2017-10-27] MEDS ORDERED: HEPARIN-D5W 25,000 U/250 ML 250 ML IV PRN (21:00)
[2017-10-27] MEDS ORDERED: levETIRAcetam INJ 500 MG in SODIUM CHLORIDE 0.9% INJ 100 ML IV SCH (21:00)
[2017-10-27 23:07] LABS: HEMATOCRIT 38.1 % (35.0-46.0); HEMOGLOBIN 12.9 GM/DL (11.6-15.3); MEAN CELL VOLUME 90.3 FL (80.0-100.0); MEAN CORPUSCULAR HEMOGLOBIN 30.7 PG (27.0-34.0); MEAN PLATELET VOLUME 8.8 FL (7.0-11.0); PLATELET COUNT 136 TH/MM3 (150-450); RED BLOOD COUNT 4.22 MIL/MM3 (4.00-5.30); RED CELL DISTRIBUTION WIDTH 15.2 % (11.6-17.2); WHITE BLOOD COUNT 3.9 TH/MM3 (4.0-11.0)
[2017-10-27] MEDS: HEPARIN-D5W 25,000 U/250 ML 250 ML IV PRN (23:43)
[2017-10-28] VITALS (8 sets, daily range): BP systolic 147–184; BP diastolic 64–81; PULSE 57–73; RESP 15–31; TEMP 96.8–98.3; O2SAT 93–100
[2017-10-28] MEDS: ENALAPRILAT 1.25 MG/ML VIAL IV PUSH PRN ×2 (00:37→08:04)
[2017-10-28] MEDS: levETIRAcetam INJ 500 MG in SODIUM CHLORIDE 0.9% INJ 100 ML IV SCH ×4 (04:00→21:21)
[2017-10-28] MEDS: DIAZEPAM 5 MG TAB PO SCH ×2 (07:28→21:28)
[2017-10-28] MEDS: INSULIN ASPART SUPPLEMENTAL SCALE SQ SCH ×4 (08:00→21:00)
[2017-10-28] MEDS ORDERED: MORPHINE SULFATE 2 MG/ML INJ IV PRN (08:15)
[2017-10-28] MEDS ORDERED: HALOPERIDOL LACTATE 5 MG/ML AMP IM ONE (08:15)
[2017-10-28] MEDS ORDERED: HALOPERIDOL LACTATE 5 MG/ML AMP IM PRN ×2 (08:15→12:30)
[2017-10-28] MEDS: MORPHINE SULFATE 2 MG/ML INJ IV PRN (08:25)
[2017-10-28] MEDS: ASPIRIN 300 MG SUPP RECTAL SCH (08:25)
[2017-10-28] MEDS: ATORVASTATIN 10 MG TAB PO SCH (08:26)
[2017-10-28] MEDS: SODIUM CHLORIDE 0.9% FLUSH 10 ML FLUSH IV FLUSH SCH ×2 (08:26→21:00)
[2017-10-28] MEDS: DOCUSATE SODIUM 50 MG/SENNA 8.6 MG TAB PO SCH ×2 (08:26→21:20)
[2017-10-28] MEDS: NS + KCL 20 MEQ INJ 1,000 ML IV SCH ×2 (09:11→19:30)
--- NOTE | 2017-10-28 12:39 | ECHRPT ---
Indication: cva/tia CONCLUSIONS Normal left ventricular size. The left ventricular systolic function is severely reduced with an estimated ejection fraction in th e range of 30-35%. [id number] mitral valve regurgitation. Aortic valve sclerosis is present. No aortic valve regurgitation. No aortic valve stenosis. There is mild tricuspid valve regurgitation. The pulmonary valve is not well visualized. BP: 169 / 80 HR: Rhythm: MEASUREMENTS (Male / Female) Normal Values Technical Quality:Technically difficult study 2D ECHO LV Diastolic Diameter PLAX 5.0 cm 4.2 - 5.9 / 3.9 - 5.3 cm LV Systolic Diameter PLAX 4.4 cm IVS Diastolic Thickness 0.8 cm 0.6 - 1.0 / 0.6 - 0.9 cm LVPW Diastolic Thickness 0.9 cm 0.6 - 1.0 / 0.6 - 0.9 cm LV Relative Wall Thickness 0.3 RV Internal Dim ED PLAX 1.8 cm M-MODE Aortic Root Diameter MM 3.3 cm LA Systolic Diameter MM 3.2 cm LA Ao Ratio MM 1.0 AV Cusp Separation MM 1.3 cm DOPPLER Mitral E Point Velocity 55.3 cm/s Mitral A Point Velocity 70.1 cm/s Mitral E to A Ratio 0.8 LV E' Lateral Velocity 4.6 cm/s Mitral E to LV E' Lateral Ratio 12.1 LV E' Septal Velocity 4.5 cm/s Mitral E to LV E' Septal Ratio 12.3 FINDINGS LEFT VENTRICLE Normal left ventricular size. The left ventricular systolic function is severely reduced with an estimated ejection fraction in th e range of 30-35%. RIGHT VENTRICLE Normal right ventricular size and systolic function. LEFT ATRIUM The left atrial size is normal. RIGHT ATRIUM The right atrial size is normal. ATRIAL SEPTUM Normal atrial septal thickness without atrial level shunting by limited color doppler interrogation. AORTA The aortic root and proximal ascending aorta are normal in size on limited imaging. MITRAL VALVE Structurally normal mitral valve. [id number] mitral valve regurgitation. AORTIC VALVE Aortic valve sclerosis is present. No aortic valve regurgitation. No aortic valve stenosis. TRICUSPID VALVE Structurally normal tricuspid valve. There is mild tricuspid valve regurgitation. PULMONARY VALVE The pulmonary valve is not well visualized. VESSELS The inferior vena cava is normal in size. PERICARDIUM No pericardial effusion. Cesar Fernando MD, FACC (Electronically Signed) Final Date:28 October 2017 12:39
--- NOTE | 2017-10-28 12:42 | PD.PSY.CON ---
Provisional Diagnosis Admission Date Oct 27, 2017 at 13:11 Rosser I. Delirium due to underlying medical conditions, history of bipolar disorder Rosser II. Deferred Rosser III. CVA, HTN History of Present Illness Service Psychiatry Consult Requested By Primary medical team Reason for Consult Agitation and aggressive behavior Primary Care Physician Raymundo Davdi MD HPI The patient is a 67-year-old woman, single, domiciled in a residential facility, [facility], supported by Social Security, with psychiatric history of bipolar disorder, about 4 hospitalizations in the past, last hospitalization was over 10 years ago, previous suicidal attempts, past medical history of Residual Aphasia, Right Hemiplegia and Left Hemiparesis, HTN, DM, who was sent to the ER from [facility] secondary to acute AMS. Per report, pt wheeled herself outside to smoke and was found slumped over in her wheelchair. Pt unable to provide history due to aphasia and previous CVA. No reported seizure like activity at that time. Upon arrival to ER, pt's Sister reports pt back to baseline mental status. BP 194/90, HR 78, O2 sat 98% on RA, Afebrile. CBC unremarkable. Chemistry essentially unremarkable. Troponin negative. INR 1.1. UA pending. CXR with no acute findings. CT Head was stable remote left MCA infarct. Consulted to psychiatry due to agitation and behavioral dysregulation in the medical floor. As per nursing charge the patient this morning woke up very agitated, combative, ballistic she tried to hit the nurse was not following verbal directions. Patient was medicated with Haldol 2.5 mg IM to help her to calm down. I have reviewed the charge. I called her son Donald Uribe, who was the one who told me that the patient has history of bipolar disorder with multiple psychiatric hospitalizations, she was in multiple medications in the past but he doesn't remember the names. She has history of poor impulse control and becoming aggressive. At baseline patient can communicate poorly due to his incoherence post CVA. On this evaluation the patient was very sleepy , sedated, difficult to engage due to recent ETO. Patient stated she was doing okay, she doesn't know the reason she is here, she doesn't know what she is, and immediately fell asleep. Review of Systems Constitutional: DENIES: Diaphoretic episodes, Fatigue, Fever, Weight gain, Weight loss, Chills, Dizziness, Change in appetite, Night Sweats Endocrine: DENIES: Abnorml menstrual pattern, Heat/cold intolerance, Polydipsia , Polyuria, Polyphagia Eyes: DENIES: Blurred vision, Diplopia, Eye inflammation, Eye pain, Vision loss , Photosensitivity, Double Vision Ears, nose, mouth, throat: DENIES: Tinnitus, Hearing loss, Vertigo, Nasal discharge, Oral lesions, Throat pain, Hoarseness, Ear Pain, Running Nose, Epistaxis, Sinus Pain, Toothache, Odynophagia Respiratory: DENIES: Apneas, Cough, Snoring, Wheezing, Hemoptysis, Sputum production, Shortness of breath Cardiovascular: DENIES: Chest pain, Palpitations, Syncope, Dyspnea on Exertion , PND, Lower Extremity Edema, Orthopnea, Claudication Gastrointestinal: DENIES: Abdominal pain, Black stools, Bloody stools, Constipation, Diarrhea, Nausea, Vomiting, Difficulty Swallowing, Anorexia Genitourinary: DENIES: Abnormal vaginal bleeding, Dysmenorrhea, Dyspareunia, Sexual dysfunction, Urinary frequency, Urinary incontinence, Urgency, Hematuria , Dysuria, Nocturia, Vaginal discharge Musculoskeletal: DENIES: Joint pain, Muscle aches, Stiffness, Joint Swelling, Back pain, Neck pain Integumentary: DENIES: Abnormal pigmentation, Pruritus, Rash, Nail changes, Breast masses, Breast skin changes, Nipple discharge Hematologic/lymphatic: DENIES: Bruising, Lymphadenopathy Immunologic/allergic: DENIES: Eczema, Urticaria Neurologic: DENIES: Abnormal gait, Headache, Localized weakness, Paresthesias, Seizures, Speech Problems, Tremor, Poor Balance Psychiatric: COMPLAINS OF: Agitation, DENIES: Anxiety, Confusion, Mood changes , Depression, Hallucinations, Suicidal Ideation, Homicidal Ideation, Delusions Past Family Social History Coded Allergies: No Known Allergies (Verified Allergy, Unknown, 10/25/17) Active Scripts Hydrocodone-Acetaminophen (Hydrocodone-Acetaminophen) 5-325 mg Tab, 1 TAB PO Q6H Y for PAIN, #20 TAB 0 Refills Prov:Suellen Berger MD 10/01/17 Diazepam (Valium) 5 Mg Tab, 5 MG PO Q12HR for Anxiety and/or Insomnia, #30 TAB Prov:Wilfred Martin MD 05/28/17 Atorvastatin (Lipitor) 10 Mg Tab, 10 MG PO DAILY for Cholesterol Management, # 30 TAB Prov:Wilfred Martin MD 05/28/17 Reported Medications Aspirin (Aspirin) 325 Mg Tab, 325 MG PO DAILY, #30 TAB 0 Refills 01/22/17 Current Medications Medications (Trade) Dose Ordered Sig/Dylon Route Start Time Stop Time Status Last Admin (Zofran Inj) 4 mg Q6H PRN IVP 10/25/17 20:15 (Tylenol) 650 mg Q6H PRN PO 10/25/17 20:15 ([place]ay 5-325 Mg) 1 tab Q4H PRN PO 10/25/17 20:15 ([place]ay 10-325 Mg) 1 tab Q4H PRN PO 10/25/17 20:15 10/27/17 13:23 (Aleah-Colace) 1 tab BID PO 10/25/17 21:00 10/27/17 20:40 (Milk Of Magnesia Liq) 30 ml Q12H PRN PO 10/25/17 20:15 (Senokot) 17.2 mg Q12H PRN PO 10/25/17 20:15 (Dulcolax Supp) 10 mg DAILY PRN RECTAL 10/25/17 20:15 (Lactulose Liq) 30 ml DAILY PRN PO 10/25/17 20:15 (Lipitor) 10 mg DAILY PO 10/26/17 09:00 (Valium) 5 mg Q12HR PO 10/25/17 21:00 10/28/17 07:28 (Ativan Inj) 1 mg Q6HR PRN IV PUSH 10/26/17 15:00 (Vasotec Inj) 1.25 mg Q8H PRN IV PUSH 10/27/17 13:45 10/28/17 08:04 (NS Flush) 2 ml BID IV FLUSH 10/27/17 21:00 10/27/17 21:00 (NS Flush) 2 ml UNSCH PRN IV FLUSH 10/27/17 21:00 (NovoLOG SUPPLEMENTAL SCALE) 1 ACHS SQ 10/27/17 21:00 (D50w (Vial) Inj) 50 ml UNSCH PRN IV PUSH 10/27/17 21:00 (Glucagon Inj) 1 mg UNSCH PRN OTHER 10/27/17 21:00 Heparin Sodium/ Dextrose 250 ml @ 7 mls/hr TITRATE PRN IV 10/27/17 22:30 10/27/17 23:43 Levetriacetam 500 mg/Sodium Chloride 105 ml @ 420 mls/hr Q6H IV 10/28/17 04:00 10/28/17 09:11 (Aspirin Supp) 300 mg DAILY RECTAL 10/28/17 09:00 10/28/17 08:25 (Morphine Inj) 1 mg Q4H PRN IV 10/28/17 08:15 (Morphine Inj) 2 mg Q4H PRN IV 10/28/17 08:15 10/28/17 08:25 Potassium Chloride/Sodium Chloride 1,000 ml @ 100 mls/hr Q10H IV 10/28/17 08:30 10/28/17 09:11 (SEROquel) 25 mg BID@09,12 PO 10/29/17 09:00 (Haldol Inj) 2 mg Q8H PRN IM 10/28/17 12:30 Family Psych History no family psychiatric history Social History Patient was born and raised in [place], she lives in an residential facility, single, she has one son, supported by Social Security, highest level of education is a bachelor degree Patient's Strengths (min. 2) She has the support of her son Physical Exam Unable to be performed at this moment due to level of sedation Vital Signs Vital Signs Date Time Temp Pulse Resp B/P (MAP) Pulse Ox O2 Delivery O2 Flow Rate FiO2 10/28/17 08:19 100 21 10/28/17 08:00 96.8 72 20 169/81 (110) 10/28/17 07:00 Room Air I/O 10/28/17 10/28/17 10/29/17 08:00 16:00 00:00 Intake Total 240 ml 1372 ml Balance 240 ml 1372 ml Lab Results Test 10/27/17 12:55 10/27/17 17:30 10/27/17 21:37 10/28/17 03:45 Triglycerides Level 210 MG/DL Cholesterol Level 140 MG/DL LDL Cholesterol 68 MG/DL HDL Cholesterol 30.1 MG/DL Cholesterol/HDL Ratio 4.65 RATIO White Blood Count 3.1 TH/MM3 3.9 TH/MM3 Red Blood Count 3.81 MIL/MM3 4.22 MIL/MM3 Hemoglobin 12.0 GM/DL 12.9 GM/DL Bedside Hemoglobin 10.5 G/DL Hematocrit 33.6 % 38.1 % Bedside Hematocrit 31.0 % Mean Corpuscular Volume 88.2 FL 90.3 FL Mean Corpuscular Hemoglobin 31.6 PG 30.7 PG Mean Corpuscular Hemoglobin Concent 35.8 % 34.0 % Red Cell Distribution Width 14.8 % 15.2 % Platelet Count 138 TH/MM3 136 TH/MM3 Mean Platelet Volume 8.6 FL 8.8 FL Neutrophils (%) (Auto) 26.5 % Lymphocytes (%) (Auto) 63.2 % Monocytes (%) (Auto) 8.8 % Eosinophils (%) (Auto) 1.2 % Basophils (%) (Auto) 0.3 % Neutrophils # (Auto) 0.8 TH/MM3 Lymphocytes # (Auto) 1.9 TH/MM3 Monocytes # (Auto) 0.3 TH/MM3 Eosinophils # (Auto) 0.0 TH/MM3 Basophils # (Auto) 0.0 TH/MM3 CBC Comment AUTO DIFF Differential Total Cells Counted 100 Neutrophils % (Manual) 35 % Band Neutrophils % 2 % Lymphocytes % 55 % Monocytes % 7 % Eosinophils % 1 % Neutrophils # (Manual) 1.1 TH/MM3 Differential Comment FINAL DIFF MANUAL Atypical Lymphocytes % Platelet Estimate LOW Platelet Morphology Comment NORMAL Prothrombin Time 10.8 SEC Prothromb Time International Ratio 1.1 RATIO Bedside Sodium 142 MMOL/L Blood Urea Nitrogen 11 MG/DL Creatinine 0.66 MG/DL Random Glucose 87 MG/DL Total Protein 5.9 GM/DL Albumin 2.7 GM/DL Calcium Level 7.8 MG/DL Alkaline Phosphatase 91 U/L Aspartate Amino Transf (AST/SGOT) 27 U/L Alanine Aminotransferase (ALT/SGPT) 20 U/L Total Bilirubin 0.3 MG/DL Sodium Level 143 MEQ/L Potassium Level 3.5 MEQ/L Chloride Level 108 MEQ/L Carbon Dioxide Level 27.8 MEQ/L Bedside Potassium 3.5 MMOL/L Bedside Chloride 102 MMOL/L Anion Gap 7 MEQ/L Bedside Blood Urea Nitrogen 10 MG/DL Bedside Creatinine 0.8 MG/DL Estimat Glomerular Filtration Rate 89 ML/MIN Bedside Glucose 90 MG/DL Troponin I LESS THAN 0.02 NG/ML Activated Partial Thromboplast Time 28.6 SEC 49.7 SEC Test 10/28/17 10:30 10/28/17 11:17 Activated Partial Thromboplast Time 55.5 SEC Date/Time Source Procedure Growth Status 10/25/17 20:00 Urine Catheterized Urine Urine Culture - Final 10-50,000 CFU/ML MIXED GRAM POSITIVE ... Complete Mental Status Examination Appearance: Disheveled Consciousness: Lethargic, Clouded Orientation: Person Motor Activity: Abnormal gait Speech: Incoherent Memory: Impaired Mood: Irritable Affect: Irritable Thought Process & Associations: Loose associations, Disorganized Hallucination Type: None Suicidal Ideation: No Suicidal Plan: No Suicidal Intention: No Homicidal Ideation: No Homicidal Plan: No Homicidal Intention: No Insight: Poor Judgment: Poor Assessment & Plan Problem List: (1) Delirium ICD Codes: R41.0 - Disorientation, unspecified Assessment & Plan: At the moment of my evaluation the patient is quite sedated , sleepy, poorly engageable. The patient has been reportedly very agitated this morning, combative, ballistic and aggressive. As per collateral information from her son the patient has an extensive history of bipolar disorder, poor impulse control and aggressive behavior in the past and at moments she can become very paranoid and suspicious. Agree with Haldol 2.5 mg IM every 8 hours when necessary severe agitation. We'll start Seroquel 25 mg twice a day for mood stabilization and psychosis. Patient might benefit of an antiepileptic mood stabilizer, but I will follow-up in order to complete psychiatric assessment. Assessment & Plan Estimated LOS: Logan Arrieta MD Oct 28, 2017 12:42
--- NOTE | 2017-10-28 14:19 | HHI.PR ---
Subjective Remarks F/u CVA. seen in [facility] dw RN earlier pt was agitated required haldol IM. Refused po meds. Currently calm and cooperative dw Psychiatry hx Bipolar Objective Vitals Vital Signs Date Time Temp Pulse Resp B/P (MAP) Pulse Ox O2 Delivery O2 Flow Rate FiO2 10/28/17 12:00 57 10/28/17 08:19 100 21 10/28/17 08:00 96.8 72 20 169/81 (110) 100 10/28/17 08:00 61 10/28/17 07:00 100 Room Air 10/28/17 04:00 98.1 59 26 169/80 (109) 98 10/28/17 04:00 59 10/28/17 00:00 98.0 73 24 164/80 (108) 93 10/28/17 00:00 73 10/27/17 22:00 75 10/27/17 21:14 94 10/27/17 20:00 97.8 62 16 174/77 (109) 98 10/27/17 20:00 62 10/27/17 17:22 65 155/72 (99) 94 10/27/17 15:51 57 I/O 10/27/17 10/27/17 10/27/17 10/28/17 10/28/17 10/28/17 07:00 15:00 23:00 07:00 15:00 23:00 Intake Total 1105 ml 240 ml 1372 ml Balance 1105 ml 240 ml 1372 ml Intake Oral 240 ml IV Total 1105 ml 1372 ml # Voids 3 4 Result Diagram: 10/27/177 10/27/17 1730 Imaging Last Impressions Neck CTA 10/27/17 0000 Signed Impressions: Service Date/Time: Friday, October 27, 2017 17:42 - CONCLUSION: 1. Occluded left internal carotid artery 2. Mild narrowing at the origin of the right internal carotid artery measuring 30%%. 3. Patent vertebral arteries with good flow. Price Cee MD Head CTA 10/27/17 0000 Signed Impressions: Service Date/Time: Friday, October 27, 2017 17:42 - CONCLUSION: 1. Occluded intracranial segment of the left internal carotid artery. 2. Very scant flow in the left middle cerebral artery distribution with proximal MCA occlusion. 3. Evolving large left MCA infarct. Price Cee MD Head CT 1/7/18 0000 Signed Impressions: Service Date/Time: Friday, October 27, 2017 17:34 - CONCLUSION: 1. No evidence of acute right-sided infarction. Cystic encephalomalacia involving the left middle cerebral artery distribution unchanged 2. Pansinusitis Soren Rose MD Carotid Artery Ultrasound 10/27/17 0000 Signed Impressions: Service Date/Time: Friday, October 27, 2017 16:16 - CONCLUSION: 1. Findings of left carotid occlusion. CT angiography of the carotid arteries the brain is recommended for further evaluation Soren Rose MD Brain MRI 10/26/17 0000 Signed Impressions: Service Date/Time: Thursday, October 26, 2017 16:34 - CONCLUSION: Cystic encephalomalacia involving large left middle cerebral artery ischemic infarction. There is a small focus of restricted diffusion in the posterior left frontal region without hemorrhage characteristic of extension of the infarct. Pansinusitis Soren Rose MD Chest X-Ray 10/25/17 1750 Signed Impressions: Service Date/Time: Wednesday, October 25, 2017 18:00 - CONCLUSION: 1. No active disease. Carlton Early MD Radius/Ulna X-Ray 10/25/17 0000 Signed Impressions: Service Date/Time: Wednesday, October 25, 2017 20:03 - CONCLUSION: 1. No acute fracture or dislocation. No bony destructive changes. Carlton Early MD Humerus X-Ray 10/25/17 0000 Signed Impressions: Service Date/Time: Wednesday, October 25, 2017 20:09 - CONCLUSION: 1. Subacute right humeral neck fracture with Callus formation. No significant change in displacement compared with September 30. Carlton Early MD Objective Remarks GENERAL: This is a well-nourished, well-developed patient, in no apparent distress. SKIN: no rash or lesions CARDIOVASCULAR: Regular rate and regular rhythm without murmurs, gallops, or rubs. RESPIRATORY: Clear to auscultation. Breath sounds equal bilaterally. No wheezes , rales, or rhonchi. GASTROINTESTINAL: Abdomen soft, non-tender, nondistended. Normal, active bowel sounds MUSCULOSKELETAL: Extremities without clubbing, cyanosis, or edema. NEURO: Awake and alert with dysphasia. Baseline right sided weakness Procedures none A/P Problem List: (1) Encephalopathy ICD Code: G93.40 - Encephalopathy, unspecified (2) CVA (cerebral vascular accident) ICD Code: I63.9 - Cerebral infarction, unspecified (3) HTN (hypertension) ICD Code: I10 - Essential (primary) hypertension (4) Tobacco abuse ICD Code: Z72.0 - Tobacco use Assessment and Plan 1. 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 Occluded left ICA continue aspirin and statin- and neuro-checks- neurology consult appreciated ; started on IV heparin and consider Coumadin. Plavix dc. F/u echo , carotid sonogram and monitor on telemetry. LDL 68 PT / ST consulted. 2. seizure; continue keppra- neurology following. 3. HTN: permissive hypertension- vasotec pen. 4. Agitation hx Bipolar DO. Seroquel started. Monitor QT duration DVT Prophylaxis: with Hepain drip Discharge Planning transfer to [facility] tele if ok with Neuro Abando,Elias Fierro MD Oct 28, 2017 14:19
--- NOTE | 2017-10-28 18:41 | EKG ---
Date Performed: 10/27/2017 Time Performed: 14:29:24 PTAGE: 67 years EKG: SINUS BRADYCARDIA WITH FIRST DEGREE AV BLOCK POSSIBLE ANTERIOR MYOCARDIAL INFARCTION ABNORM AL ECG PREVIOUS TRACING : 10/25/2017 18.37 Compared to prior tracing no significant change DOCTOR: Ayesha Gibbs Interpretating Date/Time 10/28/2017 18:39:41
--- NOTE | 2017-10-28 18:42 | EKG ---
Date Performed: 10/27/2017 Time Performed: 18:10:17 PTAGE: 67 years EKG: SINUS BRADYCARDIA WITH SINUS ARRHYTHMIA WITH FIRST DEGREE AV BLOCK POSSIBLE ANTERIOR MYOCAR DIAL INFARCTION ABNORMAL ECG PREVIOUS TRACING 10/27/2017 @ 14.29.24 Compared to prior tracing no significant change DOCTOR: Ayesha Gibbs Interpretating Date/Time 10/28/2017 18:40:36
[2017-10-29] VITALS (8 sets, daily range): BP systolic 159–204; BP diastolic 72–91; PULSE 59–87; RESP 14–20; TEMP 97.7–98.6; O2SAT 95–100
[2017-10-29] MEDS: levETIRAcetam INJ 500 MG in SODIUM CHLORIDE 0.9% INJ 100 ML IV SCH ×2 (04:01→11:03)
[2017-10-29] MEDS: INSULIN ASPART SUPPLEMENTAL SCALE SQ SCH ×4 (08:00→21:00)
[2017-10-29] MEDS: DOCUSATE SODIUM 50 MG/SENNA 8.6 MG TAB PO SCH ×3 (09:00→21:40)
[2017-10-29] MEDS: QUEtiapine FUMARATE 25 MG TAB PO SCH ×3 (09:00→12:00)
[2017-10-29] MEDS: ATORVASTATIN 10 MG TAB PO SCH ×2 (09:00→09:29)
[2017-10-29] MEDS: SODIUM CHLORIDE 0.9% FLUSH 10 ML FLUSH IV FLUSH SCH ×2 (09:00→21:44)
[2017-10-29] MEDS: DIAZEPAM 5 MG TAB PO SCH ×2 (09:29→21:40)
[2017-10-29] MEDS: ASPIRIN 300 MG SUPP RECTAL SCH (09:29)
[2017-10-29] MEDS: HEPARIN-D5W 25,000 U/250 ML 250 ML IV PRN (11:04)
--- NOTE | 2017-10-29 11:44 | HHI.PYPN ---
Subjective Remarks Especially was seen today for psychiatric evaluation. Case was discussed with nurse in charge. Chart reviewed. On psychiatric evaluation patient was sleeping, easily arousable. The medication limited due to incoherence and aphasia, but patient reports feeling okay, denies pain, she reports having a good mood today. Reports a good sleep at night, good appetite, denies suicidal and homicidal ideation, denies visual and auditory hallucinations. As per conversation with nursing charge, patient had a good night, no agitation or aggressive behavior reported in the last shift. Review of Systems Except as stated in HPI: all other systems reviewed are Neg Mental Status Examination Appearance: Disheveled Consciousness: Lethargic, Clouded Orientation: Person Motor Activity: Abnormal gait Speech: Incoherent Memory: Impaired Mood: Irritable Affect: Irritable Thought Process & Associations: Loose associations, Disorganized Hallucination Type: None Suicidal Ideation: No Suicidal Plan: No Suicidal Intention: No Homicidal Ideation: No Homicidal Plan: No Homicidal Intention: No Insight: Poor Judgment: Poor Results Labs Test 10/29/17 08:47 Activated Partial Thromboplast Time 31.5 SEC Date/Time Source Procedure Growth Status 10/25/17 20:00 Urine Catheterized Urine Urine Culture - Final 10-50,000 CFU/ML MIXED GRAM POSITIVE ... Complete Vitals/IOs Vital Signs Date Time Temp Pulse Resp B/P (MAP) Pulse Ox O2 Delivery O2 Flow Rate FiO2 10/29/17 09:30 59 10/29/17 08:40 95 21 10/29/17 08:00 Room Air 10/29/17 08:00 97.7 14 168/83 (111) Intake and Output 10/29/17 10/29/17 10/29/17 07:59 15:59 23:59 Intake Total 205 ml Balance 205 ml Assessment & Plan Problem List: (1) Delirium ICD Codes: R41.0 - Disorientation, unspecified Assessment & Plan: Patient says to be responding appropriately to psychotropic regimen. No changes. Assessment & Plan Estimated LOS: days Justification for Cont. Inpt. Patient does not meet criteria for involuntary psychiatric admission at this moment. We'll follow-up Logan Iyer MD Oct 29, 2017 11:44
--- NOTE | 2017-10-29 13:57 | HHI.PR ---
Subjective Remarks Follow-up CVA. Patient has no complaints no difficult to understand secondary to baseline dysphasia. Out of bed to chair. Abnormal echocardiogram EF of 30% denies chest pain and shortness of breath. She agrees to proceed with stress test and cardiac catheterization if indicated. Discussed with neurology, hold off with Coumadin pending ischemic workup. Objective Vitals Vital Signs Date Time Temp Pulse Resp B/P (MAP) Pulse Ox O2 Delivery O2 Flow Rate FiO2 10/29/17 12:00 71 10/29/17 12:00 97.8 71 16 188/79 (115) 100 10/29/17 09:30 59 10/29/17 08:40 95 21 10/29/17 08:00 100 Room Air 10/29/17 08:00 97.7 59 14 168/83 (111) 100 10/29/17 04:00 62 10/29/17 04:00 98.6 62 19 203/91 (128) 99 10/29/17 00:00 98.0 64 20 204/89 (127) 100 10/29/17 00:00 64 10/28/17 20:15 100 21 10/28/17 20:00 64 10/28/17 20:00 98.3 64 31 184/64 (104) 97 10/28/17 19:00 100 Room Air 10/28/17 16:00 97.8 60 23 170/71 (104) 100 10/28/17 16:00 57 I/O 10/28/17 10/28/17 10/28/17 10/29/17 10/29/17 10/29/17 07:00 15:00 23:00 07:00 15:00 23:00 Intake Total 240 ml 1477 ml 1438 ml 205 ml 350 ml Output Total 300 ml Balance 240 ml 1477 ml 1138 ml 205 ml 350 ml Intake Oral 240 ml 100 ml 100 ml IV Total 1477 ml 1338 ml 105 ml 350 ml Output Urine Total 300 ml # Voids 4 5 2 Result Diagram: 10/27/177 10/27/17 1730 Imaging Last Impressions Neck CTA 10/27/17 0000 Signed Impressions: Service Date/Time: Friday, October 27, 2017 17:42 - CONCLUSION: 1. Occluded left internal carotid artery 2. Mild narrowing at the origin of the right internal carotid artery measuring 30%%. 3. Patent vertebral arteries with good flow. Price Cee MD Head CTA 10/27/17 0000 Signed Impressions: Service Date/Time: Friday, October 27, 2017 17:42 - CONCLUSION: 1. Occluded intracranial segment of the left internal carotid artery. 2. Very scant flow in the left middle cerebral artery distribution with proximal MCA occlusion. 3. Evolving large left MCA infarct. Price Cee MD Head CT 10/27/17 Signed Impressions: Service Date/Time: Friday, October 27, 2017 17:34 - CONCLUSION: 1. No evidence of acute right-sided infarction. Cystic encephalomalacia involving the left middle cerebral artery distribution unchanged 2. Pansinusitis Soren Rose MD Carotid Artery Ultrasound 10/27/17 Signed Impressions: Service Date/Time: Friday, October 27, 2017 16:16 - CONCLUSION: 1. Findings of left carotid occlusion. CT angiography of the carotid arteries the brain is recommended for further evaluation Soren Rose MD Brain MRI 10/26/17 0000 Signed Impressions: Service Date/Time: Thursday, October 26, 2017 16:34 - CONCLUSION: Cystic encephalomalacia involving large left middle cerebral artery ischemic infarction. There is a small focus of restricted diffusion in the posterior left frontal region without hemorrhage characteristic of extension of the infarct. Pansinusitis Soren Rose MD Chest X-Ray 10/25/17 1750 Signed Impressions: Service Date/Time: Wednesday, October 25, 2017 18:00 - CONCLUSION: 1. No active disease. Carlton Early MD Radius/Ulna X-Ray 10/25/17 0000 Signed Impressions: Service Date/Time: Wednesday, October 25, 2017 20:03 - CONCLUSION: 1. No acute fracture or dislocation. No bony destructive changes. Carlton Early MD Humerus X-Ray 10/25/17 0000 Signed Impressions: Service Date/Time: Wednesday, October 25, 2017 20:09 - CONCLUSION: 1. Subacute right humeral neck fracture with Callus formation. No significant change in displacement compared with September 30. Carlton Early MD Objective Remarks GENERAL: This is a well-nourished, well-developed patient, in no apparent distress. SKIN: no rash or lesions CARDIOVASCULAR: Regular rate and regular rhythm without murmurs, gallops, or rubs. RESPIRATORY: Clear to auscultation. Breath sounds equal bilaterally. No wheezes , rales, or rhonchi. GASTROINTESTINAL: Abdomen soft, non-tender, nondistended. Normal, active bowel sounds MUSCULOSKELETAL: Extremities without clubbing, cyanosis, or edema. NEURO: Awake and alert with dysphasia. Baseline right sided weakness Procedures none A/P Problem List: (1) Encephalopathy ICD Code: G93.40 - Encephalopathy, unspecified (2) CVA (cerebral vascular accident) ICD Code: I63.9 - Cerebral infarction, unspecified (3) HTN (hypertension) ICD Code: I10 - Essential (primary) hypertension (4) Tobacco abuse ICD Code: Z72.0 - Tobacco use Assessment and Plan 1. 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 Occluded left ICA continue aspirin and statin- and neuro-checks- neurology consult appreciated ; started on IV heparin and consider Coumadin pending ischemic workup. Plavix dc. LDL 68 PT / ST consulted. 2. seizure; continue keppra- neurology following. 3. HTN: permissive hypertension- vasotec pen. 4. Agitation hx Bipolar DO. Seroquel started. Monitor QT duration. Improved 5. Cardiomyopathy EF 30%. Ischemic workup. Consider beta evonne and JAYLEN inhibitor when permissive hypertension is discontinued DVT Prophylaxis: with Heparin drip Discharge Planning transfer to [facility] Elias Bean MD Oct 29, 2017 13:57
--- NOTE | 2017-10-29 15:11 | EKG ---
Date Performed: 10/28/2017 Time Performed: 16:03:41 PTAGE: 67 years EKG: SINUS BRADYCARDIA WITH FIRST DEGREE AV BLOCK MINIMAL VOLTAGE CRITERIA FOR LVH, CONSIDER NOR MAL VARIANT POSSIBLE ANTERIOR MYOCARDIAL INFARCTION , OF INDETERMINATE AGE ABNORMAL ECG PREVIOUS TRACING : 10/27/2017 18.10 Compared to prior tracing no significant change DOCTOR: Jakob Lyles Interpretating Date/Time 10/29/2017 15:09:48
[2017-10-29 15:39] LABS: INTERNATIONAL NORMALIZED RATIO 1.1 RATIO; PROTHROMBIN TIME - PATIENT 10.9 SEC (9.8-11.6)
[2017-10-29] MEDS: NS + KCL 20 MEQ INJ 1,000 ML IV SCH (16:50)
[2017-10-29] MEDS: levETIRAcetam 500 MG TAB PO SCH (21:40)
--- NOTE | 2017-10-29 22:08 | HHI.PR ---
Review/Management Diagnosis sz--continue keppra new left hemisphere cva recurrent tia--stable Plan conitneu keppra iv heparin. 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 Diagnosis/Plan: Subjective Subjective Comments No acute events reported Active Medications Current Medications Medications (Trade) Dose Ordered Sig/Dylon Route Start Time Stop Time Status Last Admin (Zofran Inj) 4 mg Q6H PRN IVP 10/25/17 20:15 (Tylenol) 650 mg Q6H PRN PO 10/25/17 20:15 ([place] 5-325 Mg) 1 tab Q4H PRN PO 10/25/17 20:15 ([place] 10-325 Mg) 1 tab Q4H PRN PO 10/25/17 20:15 10/27/17 13:23 (Aleah-Colace) 1 tab BID PO 10/25/17 21:00 10/29/17 21:40 (Milk Of Magnesia Liq) 30 ml Q12H PRN PO 10/25/17 20:15 (Senokot) 17.2 mg Q12H PRN PO 10/25/17 20:15 (Dulcolax Supp) 10 mg DAILY PRN RECTAL 10/25/17 20:15 (Lactulose Liq) 30 ml DAILY PRN PO 10/25/17 20:15 (Lipitor) 10 mg DAILY PO 10/26/17 09:00 (Valium) 5 mg Q12HR PO 10/25/17 21:00 10/29/17 21:40 (Ativan Inj) 1 mg Q6HR PRN IV PUSH 10/26/17 15:00 (Vasotec Inj) 1.25 mg Q8H PRN IV PUSH 10/27/17 13:45 10/28/17 08:04 (NS Flush) 2 ml BID IV FLUSH 10/27/17 21:00 10/29/17 21:44 (NS Flush) 2 ml UNSCH PRN IV FLUSH 10/27/17 21:00 (NovoLOG SUPPLEMENTAL SCALE) 1 ACHS SQ 10/27/17 21:00 (D50w (Vial) Inj) 50 ml UNSCH PRN IV PUSH 10/27/17 21:00 (Glucagon Inj) 1 mg UNSCH PRN OTHER 10/27/17 21:00 Heparin Sodium/ Dextrose 250 ml @ 7 mls/hr TITRATE PRN IV 10/27/17 22:30 10/29/17 11:04 (Aspirin Supp) 300 mg DAILY RECTAL 10/28/17 09:00 10/29/17 09:29 (Morphine Inj) 1 mg Q4H PRN IV 10/28/17 08:15 (Morphine Inj) 2 mg Q4H PRN IV 10/28/17 08:15 10/28/17 08:25 Potassium Chloride/Sodium Chloride 1,000 ml @ 50 mls/hr Q20H IV 10/28/17 08:30 10/29/17 16:50 (SEROquel) 25 mg BID@09,12 PO 10/29/17 09:00 (Haldol Inj) 2 mg Q8H PRN IM 10/28/17 12:30 (Coumadin) 5 mg DAILY@1600 PO 10/29/17 16:00 Future Hold (Keppra) 1,000 mg Q12HR PO 10/29/17 21:00 10/29/17 21:40 Allergies Allergies Coded Allergies No Known Allergies (Verified Allergy, Unknown, 10/25/17) Exam I&O / VS 10/29/17 10/29/17 10/30/17 15:00 23:00 07:00 Intake Total 350 ml 480 ml Balance 350 ml 480 ml Intake Oral 480 ml IV Total 350 ml # Voids 7 # Bowel Movements 1 Vital Signs Date Time Temp Pulse Resp B/P (MAP) Pulse Ox O2 Delivery O2 Flow Rate FiO2 10/29/17 20:00 98.0 84 20 159/72 (101) 100 10/29/17 20:00 100 Room Air 10/29/17 16:00 62 10/29/17 16:00 98.0 62 17 163/72 (102) 100 10/29/17 12:00 71 10/29/17 12:00 97.8 71 16 188/79 (115) 100 10/29/17 09:30 59 10/29/17 08:40 95 21 10/29/17 08:00 100 Room Air 10/29/17 08:00 97.7 59 14 168/83 (111) 100 10/29/17 04:00 62 10/29/17 04:00 98.6 62 19 203/91 (128) 99 10/29/17 00:00 98.0 64 20 204/89 (127) 100 10/29/17 00:00 64 Respiratory: Lungs CTA, Non-labored respirations, BS equal Cardiology: Normal rate, Normal peripheral perfusion, Regular Rhythm Musculoskeletal: Swelling Exam Comments alert, speech aphasic CN--right UMN 7 palsey MOTOR 2/5 RUE and RLE Objective Micro and Labs Laboratory Tests Test 10/29/17 08:47 10/29/17 18:15 Prothrombin Time 10.9 Prothromb Time International Ratio 1.1 Activated Partial Thromboplast Time 31.5 39.5 Date/Time Source Procedure Growth Status 10/25/17 20:00 Urine Catheterized Urine Urine Culture - Final 10-50,000 CFU/ML MIXED GRAM POSITIVE ... Complete Figueroa Hernández MD PhD Oct 29, 2017 22:08
[2017-10-30] VITALS (9 sets, daily range): BP systolic 140–194; BP diastolic 74–90; PULSE 64–107; RESP 15–20; TEMP 97.7–98.8; O2SAT 95–100
[2017-10-30] MEDS: ACETAMINOPHEN/HYDROcodone 325 MG/10 MG TAB PO PRN (02:10)
[2017-10-30 05:14] LABS: HEMATOCRIT 37.3 % (35.0-46.0); HEMOGLOBIN 13.4 GM/DL (11.6-15.3); MEAN CELL VOLUME 87.1 FL (80.0-100.0); MEAN CORPUSCULAR HEMOGLOBIN 31.3 PG (27.0-34.0); PLATELET COUNT 158 TH/MM3 (150-450); RED BLOOD COUNT 4.29 MIL/MM3 (4.00-5.30); RED CELL DISTRIBUTION WIDTH 14.8 % (11.6-17.2); WHITE BLOOD COUNT 5.7 TH/MM3 (4.0-11.0)
[2017-10-30] MEDS: INSULIN ASPART SUPPLEMENTAL SCALE SQ SCH ×4 (08:00→21:00)
[2017-10-30] MEDS: DOCUSATE SODIUM 50 MG/SENNA 8.6 MG TAB PO SCH ×3 (08:30→22:03)
[2017-10-30] MEDS: QUEtiapine FUMARATE 25 MG TAB PO SCH ×3 (08:30→14:26)
[2017-10-30] MEDS: levETIRAcetam 500 MG TAB PO SCH ×2 (08:30→22:04)
[2017-10-30] MEDS: DIAZEPAM 5 MG TAB PO SCH ×3 (08:30→22:03)
[2017-10-30] MEDS: ASPIRIN 300 MG SUPP RECTAL SCH (08:30)
[2017-10-30] MEDS: ATORVASTATIN 10 MG TAB PO SCH ×2 (08:30→14:26)
[2017-10-30 09:26] LABS: INTERNATIONAL NORMALIZED RATIO 1.1 RATIO; PROTHROMBIN TIME - PATIENT 10.9 SEC (9.8-11.6)
--- NOTE | 2017-10-30 11:09 | HHI.PR ---
Subjective Remarks Follow-up CVA and cardiomyopathy. Improving headache. Denies chest pain and shortness of breath. Currently nothing by mouth for stress test. Discussed with RN Objective Vitals Vital Signs Date Time Temp Pulse Resp B/P (MAP) Pulse Ox O2 Delivery O2 Flow Rate FiO2 10/30/17 08:56 97 10/30/17 08:00 97.8 64 15 176/82 (113) 95 10/30/17 08:00 72 10/30/17 04:00 98.2 75 18 156/74 (101) 96 10/30/17 03:10 20 10/30/17 00:00 98.8 81 18 174/75 (108) 100 10/29/17 20:00 98.0 84 20 159/72 (101) 100 10/29/17 20:00 87 10/29/17 20:00 100 Room Air 10/29/17 16:00 62 10/29/17 16:00 98.0 62 17 163/72 (102) 100 10/29/17 12:00 71 10/29/17 12:00 97.8 71 16 188/79 (115) 100 I/O 10/29/17 10/29/17 10/29/17 10/30/17 10/30/17 10/30/17 07:00 15:00 23:00 07:00 15:00 23:00 Intake Total 205 ml 350 ml 480 ml 0 ml Balance 205 ml 350 ml 480 ml 0 ml Intake Oral 100 ml 480 ml 0 ml IV Total 105 ml 350 ml # Voids 2 7 # Bowel Movements 1 Result Diagram: 10/30/17 0415 10/27/17 1730 Objective Remarks GENERAL: This is a well-nourished, well-developed patient, in no apparent distress. SKIN: no rash or lesions CARDIOVASCULAR: Regular rate and regular rhythm without murmurs, gallops, or rubs. RESPIRATORY: Clear to auscultation. Breath sounds equal bilaterally. No wheezes , rales, or rhonchi. GASTROINTESTINAL: Abdomen soft, non-tender, nondistended. Normal, active bowel sounds MUSCULOSKELETAL: Extremities without clubbing, cyanosis, or edema. NEURO: Awake and alert with dysphasia. Baseline right sided weakness No significant change in PE from. The Procedures none A/P Problem List: (1) Encephalopathy ICD Code: G93.40 - Encephalopathy, unspecified (2) CVA (cerebral vascular accident) ICD Code: I63.9 - Cerebral infarction, unspecified (3) HTN (hypertension) ICD Code: I10 - Essential (primary) hypertension (4) Tobacco abuse ICD Code: Z72.0 - Tobacco use Assessment and Plan 1. 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 Occluded left ICA continue aspirin and statin- and neuro-checks- neurology consult appreciated ; started on IV heparin and then Coumadin pending ischemic workup. Plavix dc. LDL 68 PT / ST consulted. 2. seizure; continue keppra- neurology following. 3. HTN: permissive hypertension- vasotec prn. 4. Agitation hx Bipolar DO. Seroquel started. Monitor QT duration. Improved 5. Cardiomyopathy EF 30%. Ischemic workup pending Lexiscan. Consider beta evonne and JAYLEN inhibitor when permissive hypertension is discontinued DVT Prophylaxis: with Heparin drip Discharge Planning transfer to [facility] Elias Bean MD Oct 30, 2017 11:09
[2017-10-30] MEDS: ENALAPRILAT 1.25 MG/ML VIAL IV PUSH PRN (15:58)
[2017-10-30] MEDS: WARFARIN SOD 5 MG TAB PO SCH (15:58)
[2017-10-30] MEDS: HEPARIN-D5W 25,000 U/250 ML 250 ML IV PRN (19:49)
[2017-10-30] MEDS: SODIUM CHLORIDE 0.9% FLUSH 10 ML FLUSH IV FLUSH SCH (21:00)
[2017-10-31] VITALS (10 sets, daily range): BP systolic 160–202; BP diastolic 65–87; PULSE 68–87; RESP 18–24; TEMP 97.5–99; O2SAT 96–99
[2017-10-31 05:09] LABS: INTERNATIONAL NORMALIZED RATIO 1.2 RATIO
[2017-10-31] MEDS: INSULIN ASPART SUPPLEMENTAL SCALE SQ SCH ×4 (08:00→21:00)
[2017-10-31] MEDS: DIAZEPAM 5 MG TAB PO SCH ×2 (08:40→21:05)
[2017-10-31] MEDS: levETIRAcetam 500 MG TAB PO SCH ×3 (08:40→21:05)
[2017-10-31] MEDS: QUEtiapine FUMARATE 25 MG TAB PO SCH ×2 (08:40→12:00)
[2017-10-31] MEDS: ATORVASTATIN 10 MG TAB PO SCH (08:40)
[2017-10-31] MEDS: DOCUSATE SODIUM 50 MG/SENNA 8.6 MG TAB PO SCH ×2 (08:40→21:05)
[2017-10-31] MEDS: LACTULOSE SYRUP 20 GM/30 ML CUP PO PRN (08:40)
[2017-10-31] MEDS: SODIUM CHLORIDE 0.9% FLUSH 10 ML FLUSH IV FLUSH SCH ×2 (08:41→21:00)
[2017-10-31] MEDS: ASPIRIN 300 MG SUPP RECTAL SCH (09:00)
--- NOTE | 2017-10-31 12:10 | HHI.PR ---
Subjective Remarks Follow-up CVA and cardiomyopathy. Denies headache, dizziness, chest pain shortness of breath. Patient refused stress test and medications. Discussed with RN will contact psychiatry Objective Vitals Vital Signs Date Time Temp Pulse Resp B/P (MAP) Pulse Ox O2 Delivery O2 Flow Rate FiO2 10/31/17 08:00 99.0 77 20 181/84 (116) 98 10/31/17 04:00 72 10/31/17 04:00 97.8 72 21 160/65 (96) 98 10/31/17 00:32 98 10/31/17 00:01 68 10/31/17 00:00 97.9 87 23 169/70 (103) 99 10/30/17 20:28 95 10/30/17 20:00 72 10/30/17 20:00 97.7 82 20 194/90 (124) 97 10/30/17 16:00 98.7 88 18 175/77 (109) 100 10/30/17 15:43 100 Room Air 10/30/17 14:00 84 I/O 10/30/17 10/30/17 10/30/17 10/31/17 10/31/17 10/31/17 07:00 15:00 23:00 07:00 15:00 23:00 Intake Total 0 ml 370 ml 347 ml Output Total 300 ml Balance -300 ml 370 ml 347 ml Intake Oral 0 ml 240 ml IV Total 370 ml 107 ml Output Urine Total 300 ml # Voids 4 Result Diagram: 10/30/17 0415 10/27/17 0430 Objective Remarks GENERAL: This is a well-nourished, well-developed patient, in no apparent distress. SKIN: no rash or lesions CARDIOVASCULAR: Regular rate and regular rhythm without murmurs, gallops, or rubs. RESPIRATORY: Clear to auscultation. Breath sounds equal bilaterally. No wheezes , rales, or rhonchi. GASTROINTESTINAL: Abdomen soft, non-tender, nondistended. Normal, active bowel sounds MUSCULOSKELETAL: Extremities without clubbing, cyanosis, or edema. NEURO: Awake and alert with dysphasia. Baseline right sided weakness Procedures none A/P Problem List: (1) Encephalopathy ICD Code: G93.40 - Encephalopathy, unspecified (2) CVA (cerebral vascular accident) ICD Code: I63.9 - Cerebral infarction, unspecified (3) HTN (hypertension) ICD Code: I10 - Essential (primary) hypertension (4) Tobacco abuse ICD Code: Z72.0 - Tobacco use Assessment and Plan 1. 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 Occluded left ICA continue aspirin and statin- and neuro-checks- neurology consult appreciated ; started on IV heparin and then Coumadin pending ischemic workup however patient refusing stress test. Plavix dc. LDL 68 PT / ST consulted. 2. seizure; continue keppra- neurology following. 3. HTN: permissive hypertension- vasotec prn. 4. Agitation hx Bipolar DO. Seroquel started. Monitor QT duration. Patient refusing medications we'll contact psychiatry 5. Cardiomyopathy EF 30%. Ischemic workup but patient refused Lexiscan. Start beta evonne and JAYLEN inhibitor when permissive hypertension is discontinued, will clarify with neurology DVT Prophylaxis: with Heparin drip Discharge Planning transfer to [address] [place] [address] then [facility] Elias Vanegas MD Oct 31, 2017 12:10
--- NOTE | 2017-10-31 15:07 | HHI.PYPN ---
Subjective Remarks Patient was seen today for psychiatric reevaluation. Patient recognized me from previous encounters, she says that she is doing fine. Difficult to communicate due to aphasia. No agitation or aggressive behavior noted at this moment. Patient seems to be relaxed, not in acute distress. Mental Status Examination Appearance: Disheveled Consciousness: Lethargic, Clouded Orientation: Person Motor Activity: Abnormal gait Speech: Incoherent Memory: Impaired Mood: Irritable Affect: Irritable Thought Process & Associations: Loose associations, Disorganized Hallucination Type: None Suicidal Ideation: No Suicidal Plan: No Suicidal Intention: No Homicidal Ideation: No Homicidal Plan: No Homicidal Intention: No Insight: Poor Judgment: Poor Results Labs Test 10/31/17 04:42 Prothrombin Time 12.0 SEC Prothromb Time International Ratio 1.2 RATIO Activated Partial Thromboplast Time 43.4 SEC Date/Time Source Procedure Growth Status 10/25/17 20:00 Urine Catheterized Urine Urine Culture - Final 10-50,000 CFU/ML MIXED GRAM POSITIVE ... Complete Vitals/IOs Vital Signs Date Time Temp Pulse Resp B/P (MAP) Pulse Ox O2 Delivery O2 Flow Rate FiO2 10/31/17 12:00 98.8 74 20 190/84 (119) 97 10/30/17 15:43 Room Air 10/29/17 08:40 21 Intake and Output 10/31/17 10/31/17 11/01/17 08:00 16:00 00:00 Intake Total 347 ml Balance 347 ml Assessment & Plan Problem List: (1) Delirium ICD Codes: R41.0 - Disorientation, unspecified Assessment & Plan: Patient continues to be episodically agitated. Agitation is most probably related/exacerbated to frustration due to limitations with current medication. We will increase Seroquel to 50 mg twice a day. Discontinue Haldol. Order Zyprexa 10 mg IM every 8 hours if severe agitation Assessment & Plan Estimated LOS: days Justification for Cont. Inpt. She does not meet criteria for involuntary psychiatric admission. Logan Iyer MD Oct 31, 2017 15:07
[2017-10-31] MEDS: WARFARIN SOD 5 MG TAB PO SCH ×2 (15:22→16:00)
[2017-10-31] MEDS ORDERED: PILL SPLITTER OTHER PRN (16:45)
--- NOTE | 2017-10-31 20:16 | HHI.PR ---
Review/Management Diagnosis sz--continue keppra new left hemisphere cva recurrent tia--stable Plan conitneu keppra iv heparin. 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 ok from neurology standpoint to start antihypertensive meds Diagnosis/Plan: Subjective Subjective Comments No acute events reported Active Medications Current Medications Medications (Trade) Dose Ordered Sig/Dylon Route Start Time Stop Time Status Last Admin (Zofran Inj) 4 mg Q6H PRN IVP 10/25/17 20:15 (Tylenol) 650 mg Q6H PRN PO 10/25/17 20:15 ([place] 5-325 Mg) 1 tab Q4H PRN PO 10/25/17 20:15 ([place] 10-325 Mg) 1 tab Q4H PRN PO 10/25/17 20:15 10/30/17 02:10 (Aleah-Colace) 1 tab BID PO 10/25/17 21:00 10/31/17 08:40 (Milk Of Magnesia Liq) 30 ml Q12H PRN PO 10/25/17 20:15 (Senokot) 17.2 mg Q12H PRN PO 10/25/17 20:15 (Dulcolax Supp) 10 mg DAILY PRN RECTAL 10/25/17 20:15 (Lactulose Liq) 30 ml DAILY PRN PO 10/25/17 20:15 10/31/17 08:40 (Lipitor) 10 mg DAILY PO 10/26/17 09:00 10/31/17 08:40 (Valium) 5 mg Q12HR PO 10/25/17 21:00 10/31/17 08:40 (Ativan Inj) 1 mg Q6HR PRN IV PUSH 10/26/17 15:00 (Vasotec Inj) 1.25 mg Q8H PRN IV PUSH 10/27/17 13:45 10/30/17 15:58 (NS Flush) 2 ml BID IV FLUSH 10/27/17 21:00 10/31/17 08:41 (NS Flush) 2 ml UNSCH PRN IV FLUSH 10/27/17 21:00 (NovoLOG SUPPLEMENTAL SCALE) 1 ACHS SQ 10/27/17 21:00 (D50w (Vial) Inj) 50 ml UNSCH PRN IV PUSH 10/27/17 21:00 (Glucagon Inj) 1 mg UNSCH PRN OTHER 10/27/17 21:00 Heparin Sodium/ Dextrose 250 ml @ 7 mls/hr TITRATE PRN IV 10/27/17 22:30 10/30/17 19:49 (Aspirin Supp) 300 mg DAILY RECTAL 10/28/17 09:00 10/30/17 08:30 (Morphine Inj) 1 mg Q4H PRN IV 10/28/17 08:15 (Morphine Inj) 2 mg Q4H PRN IV 10/28/17 08:15 10/28/17 08:25 (Coumadin) 5 mg DAILY@1600 PO 10/29/17 16:00 Future hold 10/30/17 15:58 (Keppra) 1,000 mg Q12HR PO 10/29/17 21:00 10/30/17 22:04 (SEROquel) 50 mg BID@09,12 PO 11/01/17 09:00 (Coreg) 3.125 mg Q12HR PO 10/31/17 21:00 Future Hold (Prinivil) 2.5 mg DAILY PO 10/31/17 16:00 UNV (Pill Splitter) 1 ea UNSCH PRN OTHER 10/31/17 16:45 Allergies Allergies Coded Allergies No Known Allergies (Verified Allergy, Unknown, 10/25/17) Exam I&O / VS 10/31/17 10/31/17 11/01/17 15:00 23:00 07:00 Intake Total 2240 ml Balance 2240 ml Intake Oral 240 ml Tube Feeding 1400 ml Other 600 ml # Voids 4 # Bowel Movements 1 Vital Signs Date Time Temp Pulse Resp B/P (MAP) Pulse Ox O2 Delivery O2 Flow Rate FiO2 10/31/17 16:00 97.7 78 20 162/72 (102) 96 10/31/17 12:00 98.8 74 20 190/84 (119) 97 10/31/17 08:00 99.0 77 20 181/84 (116) 98 10/31/17 04:00 72 10/31/17 04:00 97.8 72 21 160/65 (96) 98 10/31/17 00:32 98 10/31/17 00:01 68 10/31/17 00:00 97.9 87 23 169/70 (103) 99 10/30/17 20:28 95 Respiratory: Lungs CTA, Non-labored respirations, BS equal Cardiology: Normal rate, Normal peripheral perfusion, Regular Rhythm Musculoskeletal: Swelling Exam Comments alert, speech aphasic CN--right UMN 7 palsey MOTOR 2/5 RUE and RLE Objective Micro and Labs Laboratory Tests Test 10/31/17 04:42 Prothrombin Time 12.0 Prothromb Time International Ratio 1.2 Activated Partial Thromboplast Time 43.4 Date/Time Source Procedure Growth Status 10/25/17 20:00 Urine Catheterized Urine Urine Culture - Final 10-50,000 CFU/ML MIXED GRAM POSITIVE ... Complete Figueroa Hernández MD PhD Oct 31, 2017 20:16
[2017-10-31] MEDS: ENALAPRILAT 1.25 MG/ML VIAL IV PUSH PRN (23:46)
[2017-10-31] MEDS: HEPARIN-D5W 25,000 U/250 ML 250 ML IV PRN (23:58)
[2017-11-01] VITALS (10 sets, daily range): BP systolic 97–201; BP diastolic 57–80; PULSE 68–87; RESP 17–21; TEMP 96–98.8; O2SAT 93–97
[2017-11-01 06:14] LABS: INTERNATIONAL NORMALIZED RATIO 1.3 RATIO; PROTHROMBIN TIME - PATIENT 12.9 SEC (9.8-11.6)
[2017-11-01] MEDS: INSULIN ASPART SUPPLEMENTAL SCALE SQ SCH ×4 (08:00→21:00)
[2017-11-01] MEDS: CARVEDILOL 3.125 MG TAB PO SCH ×2 (08:58→21:00)
[2017-11-01] MEDS: levETIRAcetam 500 MG TAB PO SCH ×2 (08:58→21:46)
[2017-11-01] MEDS: DOCUSATE SODIUM 50 MG/SENNA 8.6 MG TAB PO SCH ×2 (08:58→21:46)
[2017-11-01] MEDS: ATORVASTATIN 10 MG TAB PO SCH (08:58)
[2017-11-01] MEDS: QUEtiapine FUMARATE 25 MG TAB PO SCH ×2 (08:59→12:00)
[2017-11-01] MEDS: LISINOPRIL 5 MG TAB PO SCH (08:59)
[2017-11-01] MEDS: DIAZEPAM 5 MG TAB PO SCH ×3 (08:59→22:43)
[2017-11-01] MEDS: SODIUM CHLORIDE 0.9% FLUSH 10 ML FLUSH IV FLUSH SCH ×2 (09:00→21:47)
[2017-11-01] MEDS: ASPIRIN 300 MG SUPP RECTAL SCH (09:00)
--- NOTE | 2017-11-01 11:52 | PD.CONS ---
Consult Service Palliative Care Consult Requested By Dr. Vanegas Primary Care Physician Raymundo David MD Reason for Consultation a. To assist with evaluation and management of symptoms including: Altered mental status, agitation, physical deconditioning b. To assist medical decision maker(s) with: better understanding of current medical conditions; weighing benefits/burdens of medical treatment options; making medical treatment decisions. HPI History of Present Illness Ms Rodríguez is a 67 years old female with a past medical history CVA with residual aphasia, right hemiplegia and left hemiparesis, hypertension, Diabetes Mellitus- Type 2, anxiety disorder, bipolar disorder, osteoarthritis and insomnia. Patient was admitted from 05/20/17-05/29/17 and treated for an acute left frontoparietal CVA .She was discharged to a [facility]. Patient was transported by EMS to the ER on 10/25/17 with a complaint of altered mental status. Patient was found slumped over after she had wheeled herself outside to smoke a cigarette, and ecchymosis to right humerus and forearm. ER Course: * Vital signs: Temperature 98.7, pulse 70, respirations 20, BP 19/90, O2 saturation 98% on room air. * Laboratory workup revealed WBC 4.2, hemoglobin 13.2, hematocrit 37.4, platelet count 154, sodium 136, potassium 3.6, BUN/creatinine 13/0.76, troponin less than 0.02, TSH 0709. * Head CT revealed stable remote left MCA infarct. Sinusitis w/ fluid levels in the sphenoid sinus, ethmoid air cells and right maxillary sinus. * Humerus x-ray revealed subacute right humeral neck fracture with callus formation. No significant displacement. * Radius/ulna x-ray revealed no acute fracture or dislocation. * EKG- SR with first degree AV block borderline left axis deviation * Keppra administered While in ER patient`s sister reported that patient had a moment where she was starring in space and unresponsive for approximately 4 minutes possible "seizure ". Patient was admitted for further workup. Neurology Dr. Hernández consulted. Patient had decline in level of consciousness on 10/27/17 and brain MRI revealed cystic encephalomalacia in both large left middle cerebral artery ischemic infarction. Neck CTA revealed moderately occluded left internal to artery; Mild narrowing of right internal carotid. Head CTA revealed occluded intracranial segment of left internal carotid artery and evolving large left MCA infarct. Psychiatry Dr. Iyer consulted on 10/28/17 to manage and evaluate patient for agitation and behavioral dysregulation and patient was started on Seroquel. Clinical course complicated with evolving left hemisphere CVA, agitation, and delirium. Patient is also refusing her medications. Palliative care consulted to assist with clarifying goals of care. Patient seen and examined in her room. Patient lying in bed, awake, alert. Difficult to perform a neurological assessment due to severe expressive aphasia. Only able to say "yes" and thumbs up. Tries to communicate with gestures but very difficult to understand message she is trying to convey. Spontaneously moves left upper and lower extremities, flaccid right upper and lower extremities. Afebrile. Pulse high 70s. SBP 140s-160s. O2 saturation low to mid 90s. Laboratory workup today revealing PT 12.9, INR 1.3, APTT 44.4. No recent imaging. Per bedside RN patient refused her morning medications. Explained to patient the need to take her medications since her SBP was elevated in the 180s, patient took he medications. Patient kept pointing towards her right leg and nodded head for "yes" when asked if she was in pain. Telephone conversation with patient's son Jacey Carter who lives out of state, obtained patient's past medical history, psychosocial history and updated on medical status. Reviewed events leading to this hospitalization, clinical course including complications and current medical management and recommendations. Informed son that patient is refusing to take medications and sometimes food. Patient`s son understands importance of medications patient is refusing. Per son, patient never completed advanced directives. Addressed code status, discussed risks, benefits and limitations of CPR given ongoing multiple comorbidities. Patient's only son, wants patient to be a full code . He wants all possible aggressive measures done for his mother. At this moment patient`s son is worried because he has been informed that patient may not be able to go back to [facility] due to insurance problems. Case management following. Case discussed with Dr. Vanegas and bedside RN. . Function/Cognitive Trajectory Patient currently resides at a longterm facility [facility]. Patient was admitted from 05/20/17-05/29/17 and treated for an acute left frontoparietal CVA and was discharged to [facility]. . Review of Systems ROS Limitations: Altered Mental Status, Speech Impaired Constitutional: COMPLAINS OF: Weight loss, Change in appetite, Pain, DENIES: Fever Eyes: DENIES: Eye inflammation Ears, nose, mouth, throat: DENIES: Nasal discharge Respiratory: DENIES: Cough, Wheezing, Shortness of breath Cardiovascular: DENIES: Lower Extremity Edema Gastrointestinal: DENIES: Nausea, Vomiting Musculoskeletal: COMPLAINS OF: Muscle aches, Decreased range of motion Hematologic/Lymphatics: COMPLAINS OF: Bruising Neurologic: COMPLAINS OF: Localized weakness, Speech Problems Psychiatric: COMPLAINS OF: Anxiety, Confusion, Agitation Other ROS: ROS obtained from EMR and clinical observation. . Past Family Social History Coded Allergies: No Known Allergies (Verified Allergy, Unknown, 10/25/17) Past Medical History Left Frontoparietal Cerebral Vascular Accident w/ Residual Aphasia,Right Hemiplegia and Left Hemiparesis; April 2017 Hypertension Diabetes Mellitus, Type 2 Anxiety disorder Bipolar Disorder Osteoarthritis Gout Insomnia Pigmented Villonodular Synovitis of Left Knee. Fibromyalgia Syndrome Paroxysmal Supraventricular Tachycardia Tobacco Abuse . Past Surgical History Appendectomy Uterine Fibroid Removal in 1970 Ovarian Cyst Removal in 1980 Section in 1983 Cataract surgery . Reported Medications Hydrocodone-Acetaminophen 5-325 mg Tab 1 Tab PO Q6H PRN Valium (Diazepam) 5 Mg Tab 5 Mg PO Q12HR Lipitor (Atorvastatin Calcium) 10 Mg Tab 10 Mg PO DAILY Aspirin 325 Mg Tab 325 Mg PO DAILY . Current Medications Medications (Trade) Dose Ordered Sig/Dylon Route Start Time Stop Time Status Last Admin (Zofran Inj) 4 mg Q6H PRN IVP 10/25/17 20:15 (Tylenol) 650 mg Q6H PRN PO 10/25/17 20:15 (Woodburn 5-325 Mg) 1 tab Q4H PRN PO 10/25/17 20:15 (Woodburn 10-325 Mg) 1 tab Q4H PRN PO 10/25/17 20:15 10/30/17 02:10 (Aleah-Colace) 1 tab BID PO 10/25/17 21:00 10/31/17 21:05 (Milk Of Magnesia Liq) 30 ml Q12H PRN PO 10/25/17 20:15 (Senokot) 17.2 mg Q12H PRN PO 10/25/17 20:15 (Dulcolax Supp) 10 mg DAILY PRN RECTAL 10/25/17 20:15 (Lactulose Liq) 30 ml DAILY PRN PO 10/25/17 20:15 10/31/17 08:40 (Lipitor) 10 mg DAILY PO 10/26/17 09:00 10/31/17 08:40 (Valium) 5 mg Q12HR PO 10/25/17 21:00 10/31/17 21:05 (Ativan Inj) 1 mg Q6HR PRN IV PUSH 10/26/17 15:00 (Vasotec Inj) 1.25 mg Q8H PRN IV PUSH 10/27/17 13:45 10/31/17 23:46 (NS Flush) 2 ml BID IV FLUSH 10/27/17 21:00 10/31/17 21:00 (NS Flush) 2 ml UNSCH PRN IV FLUSH 10/27/17 21:00 (NovoLOG SUPPLEMENTAL SCALE) 1 ACHS SQ 10/27/17 21:00 (D50w (Vial) Inj) 50 ml UNSCH PRN IV PUSH 10/27/17 21:00 (Glucagon Inj) 1 mg UNSCH PRN OTHER 10/27/17 21:00 Heparin Sodium/ Dextrose 250 ml @ 7 mls/hr TITRATE PRN IV 10/27/17 22:30 10/31/17 23:58 (Aspirin Supp) 300 mg DAILY RECTAL 10/28/17 09:00 10/30/17 08:30 (Morphine Inj) 1 mg Q4H PRN IV 10/28/17 08:15 (Morphine Inj) 2 mg Q4H PRN IV 10/28/17 08:15 10/28/17 08:25 (Coumadin) 5 mg DAILY@1600 PO 10/29/17 16:00 Future hold 10/30/17 15:58 (Keppra) 1,000 mg Q12HR PO 10/29/17 21:00 10/31/17 21:05 (SEROquel) 50 mg BID@09,12 PO 11/01/17 09:00 (Coreg) 3.125 mg Q12HR PO 10/31/17 21:00 Future hold (Prinivil) 2.5 mg DAILY PO 11/01/17 09:00 (Pill Splitter) 1 ea UNSCH PRN OTHER 10/31/17 16:45 Family History Father- history of Celiac Disease and Gluten Allergy and Prostate Cancer. Mother- history of Seizure Disorder and Dementia. Two Sisters living in their 50's and in good health. Son living and in good health. . Substance Use Tobacco: Smoked 1/2 a pack/day of cigarettes daily for just over 30 years. Alcohol:No history of alcohol consumption Prescription med abuse: None reported Illicits: None reported . Psychosocial History Patient was born in [facility]. She is . Patient graduated from college and is a bachelor's degree in education. 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 . Spiritual/Cultural Factors Patient is Latter-Day . Living Will: Never completed Health Care Surrogate: Never completed Durable Power of Astronautical Engineer: Never completed Health Care Surrogate(s): Health Care Proxy- Son- Raul Bennett- [phone] . Family/friends goals: Patient `s son hopeful that patient gets better and goes back to a SNF. . Ethical and Legal Issues None identified at this time. . Physical Exam Vital Signs Date Time Temp Pulse Resp B/P (MAP) Pulse Ox O2 Delivery O2 Flow Rate FiO2 11/01/17 08:00 98.7 78 20 168/74 (105) 95 11/01/17 04:13 98.8 78 21 142/64 (90) 93 11/01/17 04:00 79 11/01/17 04:00 Room Air 11/01/17 00:02 120/59 (79) 11/01/17 00:00 79 11/01/17 00:00 Room Air 10/31/17 23:30 98.6 78 24 202/87 (125) 96 10/31/17 21:59 97 21 10/31/17 20:00 Room Air 10/31/17 20:00 75 10/31/17 20:00 97.5 86 18 165/70 (101) 97 10/31/17 16:00 97.7 78 20 162/72 (102) 96 10/31/17 12:00 98.8 74 20 190/84 (119) 97 Exam CONSTITUTIONAL/GENERAL: This is an adequately nourished patient, in no apparent distress. TUBES/LINES/DRAINS: PIV SKIN: No jaundice, rashes, or lesions. Ecchymoses on upper extremities. No wounds seen anteriorly. Skin temperature appropriate. Not diaphoretic. HEAD: Atraumatic. Normocephalic. EYES: Pupils equal and round and reactive. Extraocular motions intact. No scleral icterus. No injection or drainage. Fundi not examined. ENT: Hearing grossly normal. Nose without bleeding or purulent drainage. Moist oral mucosa. NECK: Trachea midline. Supple, nontender. CARDIOVASCULAR: Regular rate and rhythm without murmurs, gallops, or rubs. No JVD. Peripheral pulses symmetric. RESPIRATORY/CHEST: Symmetric, unlabored respirations. Clear to auscultation. Breath sounds equal bilaterally. No wheezes, rales, or rhonchi. GASTROINTESTINAL: Abdomen soft, non-tender, nondistended. No guarding. Bowel sounds present. GENITOURINARY: Without palpable bladder distension. Medrano catheter in place. MUSCULOSKELETAL: Extremities without clubbing, cyanosis, or edema. No joint tenderness or effusion noted. No calf tenderness. No mottling or clubbing. NEUROLOGICAL: Awake and alert, has expressive aphasia and flaccid to right side. Spontaneously Moves left upper and lower extremities. PSYCHIATRIC: No obvious anxiety/depression. no apparent hallucinations or other psychotic thought process. Easily agitated . Diagnostic Tests Laboratory Laboratory Tests Test 10/29/17 18:15 10/30/17 00:47 10/30/17 04:15 10/30/17 09:02 Activated Partial Thromboplast Time 39.5 SEC (24.3-30.1) 39.7 SEC (24.3-30.1) 46.0 SEC (24.3-30.1) White Blood Count 5.7 TH/MM3 (4.0-11.0) Red Blood Count 4.29 MIL/MM3 (4.00-5.30) Hemoglobin 13.4 GM/DL (11.6-15.3) Hematocrit 37.3 % (35.0-46.0) Mean Corpuscular Volume 87.1 FL (80.0-100.0) Mean Corpuscular Hemoglobin 31.3 PG (27.0-34.0) Mean Corpuscular Hemoglobin Concent 36.0 % (32.0-36.0) Red Cell Distribution Width 14.8 % (11.6-17.2) Platelet Count 158 TH/MM3 (150-450) Mean Platelet Volume 9.0 FL (7.0-11.0) Prothrombin Time 10.9 SEC (9.8-11.6) Prothromb Time International Ratio 1.1 RATIO Test 10/31/17 04:42 11/01/17 05:30 Prothrombin Time 12.0 SEC (9.8-11.6) 12.9 SEC (9.8-11.6) Prothromb Time International Ratio 1.2 RATIO 1.3 RATIO Activated Partial Thromboplast Time 43.4 SEC (24.3-30.1) 44.4 SEC (24.3-30.1) Result Diagram: 10/30/17 0415 Imaging Last Impressions Neck CTA 10/27/17 0000 Signed Impressions: Service Date/Time: Friday, October 27, 2017 17:42 - CONCLUSION: 1. Occluded left internal carotid artery 2. Mild narrowing at the origin of the right internal carotid artery measuring 30%%. 3. Patent vertebral arteries with good flow. Price Cee MD Head CTA 10/27/17 0000 Signed Impressions: Service Date/Time: Friday, October 27, 2017 17:42 - CONCLUSION: 1. Occluded intracranial segment of the left internal carotid artery. 2. Very scant flow in the left middle cerebral artery distribution with proximal MCA occlusion. 3. Evolving large left MCA infarct. Price Cee MD Head CT 10/27/17 0000 Signed Impressions: Service Date/Time: Friday, October 27, 2017 17:34 - CONCLUSION: 1. No evidence of acute right-sided infarction. Cystic encephalomalacia involving the left middle cerebral artery distribution unchanged 2. Pansinusitis Soren Rose MD Carotid Artery Ultrasound 10/27/17 0000 Signed Impressions: Service Date/Time: Friday, October 27, 2017 16:16 - CONCLUSION: 1. Findings of left carotid occlusion. CT angiography of the carotid arteries the brain is recommended for further evaluation Soren Rose MD Brain MRI 10/26/17 0000 Signed Impressions: Service Date/Time: Thursday, October 26, 2017 16:34 - CONCLUSION: Cystic encephalomalacia involving large left middle cerebral artery ischemic infarction. There is a small focus of restricted diffusion in the posterior left frontal region without hemorrhage characteristic of extension of the infarct. Pansinusitis Soren Rose MD Chest X-Ray 10/25/17 1750 Signed Impressions: Service Date/Time: Wednesday, October 25, 2017 18:00 - CONCLUSION: 1. No active disease. Carlton Early MD Radius/Ulna X-Ray 10/25/17 0000 Signed Impressions: Service Date/Time: Wednesday, October 25, 2017 20:03 - CONCLUSION: 1. No acute fracture or dislocation. No bony destructive changes. Carlton Early MD Humerus X-Ray 10/25/17 0000 Signed Impressions: Service Date/Time: Wednesday, October 25, 2017 20:09 - CONCLUSION: 1. Subacute right humeral neck fracture with Callus formation. No significant change in displacement compared with September 30. Carlton Early MD Patient/Family Conference Family Conference Location: Bedside, Telephone Issues Discussed: * Palliative care role, purpose, approach * Additional medical, psychosocial, and spiritual history * Patients general health, functional status, and cognitive changes in the months leading up to the current hospitalization * Patient/family understanding of the current medical problems * Patient/family understanding of prognosis * Patients goals of care as best understood from advance directives and/or conversations and/or values * Current medical treatment options and benefits/burdens of those options * Likely scenarios comparing ongoing aggressive care with a transition to comfort measures only * Questions answered to the best of my ability * Palliative care contact information provided Assessment and Plan Disease Oriented Problem List: (1) CVA (cerebral vascular accident) (2) HTN (hypertension) (3) Encephalopathy (4) Tobacco abuse Symptom Scale: (1) Altered mental status 0-10 Scale: Unable to quantify Comment: Multifactorial. History of bipolar disorder and CVA . (2) Physical deconditioning 0-10 Scale: Unable to quantify Pertinent Non-Medical Issues Psychosocial:Patient was born in [facility]. She is . Patient graduated from college and is a bachelor's degree in education. 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 Spiritual:Patient is Latter-Day Legal: Ethical issues impacting care: None identified at this time. . Important Contacts Son- Raul Bennett- [phone] Sister Harvey Fernandez [phone] Sister Michelle Raza [phone] . Prognosis Ms Rodríguez is a 67 years old female with a past medical history CVA with residual aphasia, right hemiplegia and left hemiparesis, hypertension, Diabetes Mellitus- Type 2, anxiety disorder, bipolar disorder, osteoarthritis and insomnia. Patient was admitted from 05/20/17-05/29/17 and treated for an acute left frontoparietal CVA .She was discharged to a SNF [facility]. Patient was transported by EMS to the ER on 10/25/17 with a complaint of altered mental status. Patient was found slumped over after she had wheeled herself outside to smoke, and ecchymosis to right humerus and forearm. Clinical course complicated with evolving left hemisphere CVA, agitation, and delirium. Given ongoing comorbidities, patient remains at high risk for further complications, deterioration and decline. . Code Status: Full Code Plan PLAN: Legal decision maker: Patient has a history of stroke with expressive aphasia , agitation and altered mental status during this hospitalization. Patient is not able to participate in making her own medical decisions. Patient has an adult son who according to [place] Statute will serve as patient`s Health Care Proxy. Goals: Aggressive CODE STATUS: Full Code Telephone conversation with patient's son Jacey Carter who lives out of state, obtained patient's past medical history, psychosocial history and updated on medical status. Reviewed events leading to this hospitalization, clinical course including complications and current medical management and recommendations. Informed son that patient is refusing to take medications and sometimes food. Patient`s son understands importance of medications patient is refusing. Per son, patient never completed advanced directives. Addressed code status, discussed risks, benefits and limitations of CPR given ongoing multiple comorbidities. Patient's only son, wants patient to be a full code . He wants all possible aggressive measures done for his mother. At this moment patient`s son is worried because he has been informed that patient may not be able to go back to [facility] due to insurance problems. Palliative Care contact information provided to patient`s son. SYMPTOMS: * Altered mental status:Multifactorial. History of bipolar disorder and CVA. Head CTA 10/27/17 revealed evolving CVA. Was on Haldol which was discontinued on . Patient is also on Valium 5mg BID.Patient on Seroquel 50mg BID. No recommendations. * Agitation: Multifactorial. History of bipolar disorder and CVA with expressive aphasia. Psychiatry consulted. On Seroquel 50mg BID. Seems to be compounded with inability to communicate her needs. No recommendations at this time. * Physical deconditioning: Progressive. Patient has a history CVA with Residual Aphasia,Right Hemiplegia and Left Hemiparesis. During her admission in January 2017 patient weight 79.7kgs and on October 28, 2017 patient weighed 59.9kgs. Physical therapy consulted. Occupational therapy consulted and recommended OT at rehabilitation. Patient's participation is limited due to expressive aphasia, inability to comprehend complex commands, right hemiplegia and left hemiparesis. Speech therapy consulted, recommended speech therapy at rehabilitation. No recommendations at this time. Palliative care will continue to follow the patient during hospital course as condition evolves, to assist patient/decision-maker with understanding of their medical conditions, weighing benefits/burdens of treatment options, for clarification of goals of treatment. Additionally will assist with any symptoms of palliative concern Thank you for the opportunity to participate in the care of Ms. Rodríguez. Attestation To help prompt me to consider important information that might be impacting today's encounter and assessment, information from prior notes written by myself or my colleagues may have been "brought forward" into today's note. My signature on this note, however, is an attestation that I personally performed the exam, history, and/or decision-making noted today, and, unless otherwise indicated, the interactions with patient, family, and staff as well as the review of records all occurred today. I also attest that the listed assessment and stated plan reflect my best clinical judgment today based on the combination of historical information, prior notes, and today's exam/ interactions. When time spent is documented, it refers only to time spent today by the signer, or if indicated, combined time spent today by collaborating physician/nurse practitioner. Susan Dawson Nov 01, 2017 11:07
--- NOTE | 2017-11-01 13:13 | HHI.PR ---
Subjective Remarks Follow-up CVA, hypertension and bipolar disorder. Patient has been refusing medications. Episodes of agitation. Discussed with RN and palliative care Objective Vitals Vital Signs Date Time Temp Pulse Resp B/P (MAP) Pulse Ox O2 Delivery O2 Flow Rate FiO2 11/01/17 12:30 183/80 (114) 11/01/17 12:00 97.9 68 17 201/67 (111) 97 11/01/17 08:00 98.7 78 20 168/74 (105) 95 11/01/17 04:13 98.8 78 21 142/64 (90) 93 11/01/17 04:00 79 11/01/17 04:00 Room Air 11/01/17 00:02 120/59 (79) 11/01/17 00:00 79 11/01/17 00:00 Room Air 10/31/17 23:30 98.6 78 24 202/87 (125) 96 10/31/17 21:59 97 21 10/31/17 20:00 Room Air 10/31/17 20:00 75 10/31/17 20:00 97.5 86 18 165/70 (101) 97 10/31/17 16:00 97.7 78 20 162/72 (102) 96 I/O 10/31/17 10/31/17 10/31/17 11/01/17 11/01/17 11/01/17 07:00 15:00 23:00 07:00 15:00 23:00 Intake Total 347 ml 2240 ml 480 ml Balance 347 ml 2240 ml 480 ml Intake Oral 240 ml 240 ml 480 ml IV Total 107 ml Tube Feeding 1400 ml Other 600 ml # Voids 4 4 6 # Bowel Movements 1 0 Result Diagram: 10/30/17 0415 Objective Remarks GENERAL: This is a well-nourished, well-developed patient, in no apparent distress. SKIN: no rash or lesions CARDIOVASCULAR: Regular rate and regular rhythm without murmurs, gallops, or rubs. RESPIRATORY: Clear to auscultation. Breath sounds equal bilaterally. No wheezes , rales, or rhonchi. GASTROINTESTINAL: Abdomen soft, non-tender, nondistended. Normal, active bowel sounds MUSCULOSKELETAL: Extremities without clubbing, cyanosis, or edema. NEURO: Awake and alert with dysphasia. Baseline right sided weakness Procedures none A/P Problem List: (1) Encephalopathy ICD Code: G93.40 - Encephalopathy, unspecified (2) CVA (cerebral vascular accident) ICD Code: I63.9 - Cerebral infarction, unspecified (3) HTN (hypertension) ICD Code: I10 - Essential (primary) hypertension (4) Tobacco abuse ICD Code: Z72.0 - Tobacco use Assessment and Plan 1. 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 Occluded left ICA continue aspirin until INR is therapeutic and statin- and neuro-checks- neurology consult appreciated; started on IV heparin and then Coumadin pending ischemic workup however patient refusing stress test. Plavix dc. LDL 68 PT / ST consulted. 2. seizure; continue keppra- neurology following. 3. HTN: 80s and beta evonne started with vasotec prn. 4. Agitation hx Bipolar DO. Seroquel increased. Add IM Zyprexa as needed. Monitor QT duration. Patient refusing medications we'll contact psychiatry 5. Cardiomyopathy EF 30%. Ischemic workup but patient refused Lexiscan. Uptitrate beta evonne and JAYLEN inhibitor DVT Prophylaxis: with Heparin drip Discharge Planning transfer to [address] [place] [address] then SNF when ready. Consulted palliative care to clarify goals of care Elias Vanegas MD Nov 01, 2017 13:13
[2017-11-01] MEDS ORDERED: OLANZapine IM 10 MG VIAL IM PRN (13:15)
[2017-11-01] MEDS: ENALAPRILAT 1.25 MG/ML VIAL IV PUSH PRN (13:17)
[2017-11-01] MEDS: WARFARIN SOD 5 MG TAB PO SCH (16:11)
[2017-11-01] MEDS: ACETAMINOPHEN/HYDROcodone 325 MG/10 MG TAB PO PRN (22:43)
[2017-11-02] VITALS (10 sets, daily range): BP systolic 113–138; BP diastolic 55–95; PULSE 63–91; RESP 20–41; TEMP 97.5–98.7; O2SAT 95–98
[2017-11-02] MEDS: INSULIN ASPART SUPPLEMENTAL SCALE SQ SCH (07:30)
[2017-11-02] MEDS: levETIRAcetam 500 MG TAB PO SCH ×2 (08:34→21:16)
[2017-11-02] MEDS: CARVEDILOL 3.125 MG TAB PO SCH ×2 (08:34→21:15)
[2017-11-02] MEDS: DOCUSATE SODIUM 50 MG/SENNA 8.6 MG TAB PO SCH ×2 (08:34→21:16)
[2017-11-02] MEDS: ATORVASTATIN 10 MG TAB PO SCH (08:34)
[2017-11-02] MEDS: QUEtiapine FUMARATE 25 MG TAB PO SCH ×2 (08:34→12:05)
[2017-11-02] MEDS: DIAZEPAM 5 MG TAB PO SCH ×2 (08:34→21:15)
[2017-11-02] MEDS: LISINOPRIL 5 MG TAB PO SCH (08:34)
[2017-11-02] MEDS: SODIUM CHLORIDE 0.9% FLUSH 10 ML FLUSH IV FLUSH SCH ×2 (08:35→21:16)
[2017-11-02] MEDS: ASPIRIN 300 MG SUPP RECTAL SCH (08:36)
[2017-11-02] MEDS: HEPARIN-D5W 25,000 U/250 ML 250 ML IV PRN (12:05)
[2017-11-02 12:49] LABS: INTERNATIONAL NORMALIZED RATIO 1.4 RATIO; PROTHROMBIN TIME - PATIENT 13.7 SEC (9.8-11.6)
--- NOTE | 2017-11-02 12:53 | HHI.PR ---
Subjective Remarks Follow-up CVA and bipolar disorder. Patient calm and cooperative today. Took her medications. 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 Discussed with RN Objective Vitals Vital Signs Date Time Temp Pulse Resp B/P (MAP) Pulse Ox O2 Delivery O2 Flow Rate FiO2 11/02/17 12:21 71 11/02/17 12:00 97.5 75 25 135/95 (108) 97 11/02/17 09:42 95 21 11/02/17 08:11 72 11/02/17 08:00 98.6 91 28 113/79 (90) 98 11/02/17 07:24 Room Air 11/02/17 04:00 72 11/02/17 04:00 Room Air 11/02/17 04:00 98.1 63 20 95 11/02/17 00:00 74 11/01/17 23:43 20 11/01/17 20:00 94 11/01/17 20:00 82 11/01/17 20:00 97.6 79 20 97/57 (70) 96 11/01/17 16:40 97 11/01/17 16:00 96.0 85 21 131/60 (83) 94 11/01/17 16:00 87 I/O 11/01/17 11/01/17 11/01/17 11/02/17 11/02/17 11/02/17 07:00 15:00 23:00 07:00 15:00 23:00 Intake Total 480 ml 120 ml 90 ml 99 ml Balance 480 ml 120 ml 90 ml 99 ml Intake Oral 480 ml 120 ml 90 ml IV Total 99 ml # Voids 6 2 3 # Bowel Movements 0 Result Diagram: 10/30/17 0415 Objective Remarks GENERAL: This is a well-nourished, well-developed patient, in no apparent distress. SKIN: no rash or lesions CARDIOVASCULAR: Regular rate and regular rhythm without murmurs, gallops, or rubs. RESPIRATORY: Clear to auscultation. Breath sounds equal bilaterally. No wheezes , rales, or rhonchi. GASTROINTESTINAL: Abdomen soft, non-tender, nondistended. Normal, active bowel sounds MUSCULOSKELETAL: Extremities without clubbing, cyanosis, or edema. NEURO: Awake and alert with dysphasia. Baseline right sided weakness. Cooperative today Procedures none A/P Problem List: (1) Encephalopathy ICD Code: G93.40 - Encephalopathy, unspecified (2) CVA (cerebral vascular accident) ICD Code: I63.9 - Cerebral infarction, unspecified (3) HTN (hypertension) ICD Code: I10 - Essential (primary) hypertension (4) Tobacco abuse ICD Code: Z72.0 - Tobacco use Assessment and Plan 1. 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 Occluded left ICA continue aspirin until INR is therapeutic and statin- and neuro-checks- neurology consult appreciated; started on IV heparin and then Coumadi. Plavix dc. LDL 68 PT / ST consulted. 2. seizure; continue keppra- neurology following. 3. HTN: JAYLEN and beta evonne started with vasotec prn. 4. Agitation hx Bipolar DO. Seroquel increased. Add IM Zyprexa as needed. Monitor QT duration. Patient cooperative today continue to monitor 5. Cardiomyopathy EF 30%. Ischemic workup but patient refused Lexiscan. Uptitrate beta evonne and JAYLEN inhibitor DVT Prophylaxis: with Heparin drip Discharge Planning transfer to [address] [place] [address] then SNF when INR is therapeutic consulted palliative care to clarify goals of care Elias Vanegas MD Nov 02, 2017 12:53
[2017-11-02] MEDS ORDERED: WARFARIN SOD 1 MG TAB PO ONE (16:00)
[2017-11-02] MEDS: WARFARIN SOD 5 MG TAB PO SCH (16:23)
[2017-11-02] MEDS: ACETAMINOPHEN/HYDROcodone 325 MG/10 MG TAB PO PRN (21:15)
[2017-11-03] VITALS (7 sets, daily range): BP systolic 124–162; BP diastolic 62–86; PULSE 75–116; RESP 22–41; TEMP 97.6–98.5; O2SAT 96–100
[2017-11-03] MEDS: DIAZEPAM 5 MG TAB PO SCH ×2 (07:36→20:35)
[2017-11-03] MEDS: LISINOPRIL 5 MG TAB PO SCH (07:36)
[2017-11-03] MEDS: levETIRAcetam 500 MG TAB PO SCH ×2 (07:36→20:35)
[2017-11-03] MEDS: DOCUSATE SODIUM 50 MG/SENNA 8.6 MG TAB PO SCH ×2 (07:36→20:35)
[2017-11-03] MEDS: QUEtiapine FUMARATE 25 MG TAB PO SCH ×2 (07:37→13:07)
[2017-11-03] MEDS: CARVEDILOL 3.125 MG TAB PO SCH ×2 (07:37→20:35)
[2017-11-03] MEDS: ASPIRIN 300 MG SUPP RECTAL SCH (07:37)
[2017-11-03] MEDS: SODIUM CHLORIDE 0.9% FLUSH 10 ML FLUSH IV FLUSH SCH ×2 (07:38→20:36)
[2017-11-03] MEDS: ATORVASTATIN 10 MG TAB PO SCH (07:38)
[2017-11-03] MEDS: ACETAMINOPHEN/HYDROcodone 325 MG/10 MG TAB PO PRN (07:57)
[2017-11-03] MEDS: NS + KCL 20 MEQ INJ 1,000 ML IV SCH (13:44)
[2017-11-03 14:00] LABS: INTERNATIONAL NORMALIZED RATIO 3.2 RATIO; PROTHROMBIN TIME - PATIENT 32.1 SEC (9.8-11.6)
--- NOTE | 2017-11-03 14:17 | HHI.PR ---
Subjective Remarks Follow-up CVA. Continues to intermittently refuse lab work and meds. Episodic tachycardia secondary to agitation discussed with RN Objective Vitals Vital Signs Date Time Temp Pulse Resp B/P (MAP) Pulse Ox O2 Delivery O2 Flow Rate FiO2 11/03/17 12:00 97.7 84 22 145/67 (93) 100 11/03/17 10:16 18 11/03/17 08:07 Nasal Cannula 11/03/17 08:00 97.6 99 22 162/62 (95) 100 11/03/17 04:00 78 11/03/17 04:00 98.4 75 33 149/64 (92) 96 11/03/17 00:00 98.0 82 36 124/77 (93) 96 11/03/17 00:00 80 11/02/17 20:00 76 11/02/17 20:00 98.7 78 41 130/55 (80) 97 11/02/17 20:00 98 Room Air 11/02/17 16:15 72 11/02/17 16:00 97.8 73 34 138/74 (95) 96 I/O 11/02/17 11/02/17 11/02/17 11/03/17 11/03/17 11/03/17 07:00 15:00 23:00 07:00 15:00 23:00 Intake Total 90 ml 99 ml 170 ml 230 ml Balance 90 ml 99 ml 170 ml 230 ml Intake Oral 90 ml 60 ml 230 ml IV Total 99 ml 110 ml # Voids 3 1 # Bowel Movements 1 Result Diagram: 10/30/17 0415 Imaging Last Impressions Neck CTA 10/27/17 0000 Signed Impressions: Service Date/Time: Friday, October 27, 2017 17:42 - CONCLUSION: 1. Occluded left internal carotid artery 2. Mild narrowing at the origin of the right internal carotid artery measuring 30%%. 3. Patent vertebral arteries with good flow. Price Cee MD Head CTA 10/27/17 0000 Signed Impressions: Service Date/Time: Friday, October 27, 2017 17:42 - CONCLUSION: 1. Occluded intracranial segment of the left internal carotid artery. 2. Very scant flow in the left middle cerebral artery distribution with proximal MCA occlusion. 3. Evolving large left MCA infarct. Price Cee MD Head CT 10/27/17 0000 Signed Impressions: Service Date/Time: Friday, October 27, 2017 17:34 - CONCLUSION: 1. No evidence of acute right-sided infarction. Cystic encephalomalacia involving the left middle cerebral artery distribution unchanged 2. Pansinusitis Soren Rose MD Carotid Artery Ultrasound 10/27/17 0000 Signed Impressions: Service Date/Time: Friday, October 27, 2017 16:16 - CONCLUSION: 1. Findings of left carotid occlusion. CT angiography of the carotid arteries the brain is recommended for further evaluation Soren Rose MD Brain MRI 10/26/17 0000 Signed Impressions: Service Date/Time: Thursday, October 26, 2017 16:34 - CONCLUSION: Cystic encephalomalacia involving large left middle cerebral artery ischemic infarction. There is a small focus of restricted diffusion in the posterior left frontal region without hemorrhage characteristic of extension of the infarct. Pansinusitis Soren Rose MD Chest X-Ray 10/25/17 1750 Signed Impressions: Service Date/Time: Wednesday, October 25, 2017 18:00 - CONCLUSION: 1. No active disease. aCrlton Early MD Radius/Ulna X-Ray 10/25/17 0000 Signed Impressions: Service Date/Time: Wednesday, October 25, 2017 20:03 - CONCLUSION: 1. No acute fracture or dislocation. No bony destructive changes. Carlton Early MD Humerus X-Ray 10/25/17 0000 Signed Impressions: Service Date/Time: Wednesday, October 25, 2017 20:09 - CONCLUSION: 1. Subacute right humeral neck fracture with Callus formation. No significant change in displacement compared with September 30. Carlton Early MD Objective Remarks GENERAL: This is a well-nourished, well-developed patient, in no apparent distress. SKIN: no rash or lesions CARDIOVASCULAR: Regular rate and regular rhythm without murmurs, gallops, or rubs. RESPIRATORY: Clear to auscultation. Breath sounds equal bilaterally. No wheezes , rales, or rhonchi. GASTROINTESTINAL: Abdomen soft, non-tender, nondistended. Normal, active bowel sounds MUSCULOSKELETAL: Extremities without clubbing, cyanosis, or edema. NEURO: Awake and alert with dysphasia. Baseline right sided weakness. Procedures none A/P Problem List: (1) Encephalopathy ICD Code: G93.40 - Encephalopathy, unspecified (2) CVA (cerebral vascular accident) ICD Code: I63.9 - Cerebral infarction, unspecified (3) HTN (hypertension) ICD Code: I10 - Essential (primary) hypertension (4) Tobacco abuse ICD Code: Z72.0 - Tobacco use Assessment and Plan 1. 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 Occluded left ICA continue aspirin until INR is therapeutic and statin- and neuro-checks- neurology consult appreciated; started on IV heparin and then Coumadin. Plavix dc. LDL 68 PT / ST consulted. 2. seizure; continue keppra- neurology following. 3. HTN: JAYLEN and beta evonne started with vasotec prn. 4. Agitation hx Bipolar DO. Seroquel increased. Add IM Zyprexa as needed. Monitor QT duration. Reconsult psychiatry to evaluate for competency 5. Cardiomyopathy EF 30%. Ischemic workup but patient refused Lexiscan. Uptitrate beta evonne and JAYLEN inhibitor FEN. IVF if poor PO DVT Prophylaxis: with Heparin drip Discharge Planning transfer to [address] [place] [address] then SNF when INR is therapeutic consulted palliative care to clarify goals of care Elias Vanegas MD Nov 03, 2017 14:17
--- NOTE | 2017-11-03 14:51 | PD.PSY.CON ---
Provisional Diagnosis Admission Date Oct 27, 2017 at 13:11 [place] I. Delirium due to underlying medical conditions, history of bipolar disorder [place] II. Deferred [place] III. CVA, HTN History of Present Illness Service Psychiatry Consult Requested By Dr. Vanegas Reason for Consult Decisional capacity; pt refusing meds Primary Care Physician Raymundo David MD HPI The patient is a 67-year-old woman, single, domiciled in a residential facility, [facility], supported by Social Security, with psychiatric history of bipolar disorder, about 4 hospitalizations in the past, last hospitalization was over 10 years ago, previous suicidal attempts, past medical history of Residual Aphasia, Right Hemiplegia and Left Hemiparesis, HTN, DM, who was sent to the ER from [facility] secondary to acute AMS. Per report, pt wheeled herself outside to smoke and was found slumped over in her wheelchair. Pt unable to provide history due to aphasia and previous CVA. No reported seizure like activity at that time. Upon arrival to ER, pt's Sister reports pt back to baseline mental status. BP 194/90, HR 78, O2 sat 98% on RA, Afebrile. CBC unremarkable. Chemistry essentially unremarkable. Troponin negative. INR 1.1. UA pending. CXR with no acute findings. CT Head was stable remote left MCA infarct. Consulted to psychiatry due to agitation and behavioral dysregulation in the medical floor. As per nursing charge the patient this morning woke up very agitated, combative, ballistic she tried to hit the nurse was not following verbal directions. Patient was medicated with Haldol 2.5 mg IM to help her to calm down. I have reviewed the charge. I called her son Donald Uribe, who was the one who told me that the patient has history of bipolar disorder with multiple psychiatric hospitalizations, she was in multiple medications in the past but he doesn't remember the names. She has history of poor impulse control and becoming aggressive. At baseline patient can communicate poorly due to his incoherence post CVA. On this evaluation the patient was very sleepy , sedated, difficult to engage due to recent ETO. Patient stated she was doing okay, she doesn't know the reason she is here, she doesn't know what she is, and immediately fell asleep. 11/03/17 - Patient is a 67-year-old woman, single, domiciled residential facility, unemployed on SSI, past psychiatric history of bipolar disorder as per chart, previous psychiatric hospitalizations, previous suicide attempts with a past medical history significant for previous CVA with residual aphasia, right hemiplegia, left hemiparesis, hypertension, diabetes was reviewed to the medical service for altered mental status and during admission had began to refuse medications which psychiatry was consulted for decisional capacity. Discussion she staff reported the patient had been refusing by mouth intake and inconsistent patient compliant with medications but has been taking with much encouragement. Patient was found lying in hospital bed noted to be lethargic likely continue sedation from recent administration of Zyprexa IM this morning. Patient at this time appears to sedated to participate in interview effectively despite multiple attempts to try to engage patient to wake up and engage in interview. Patient will require reevaluation once effects of sedation have abated patient is alert and able to interact effectively in interview. Past Family Social History Coded Allergies: No Known Allergies (Verified Allergy, Unknown, 10/25/17) Active Scripts Hydrocodone-Acetaminophen (Hydrocodone-Acetaminophen) 5-325 mg Tab, 1 TAB PO Q6H Y for PAIN, #20 TAB 0 Refills Prov:Suellen Berger MD 10/01/17 Diazepam (Valium) 5 Mg Tab, 5 MG PO Q12HR for Anxiety and/or Insomnia, #30 TAB Prov:Wilfred Martin MD 05/28/17 Atorvastatin (Lipitor) 10 Mg Tab, 10 MG PO DAILY for Cholesterol Management, # 30 TAB Prov:Wilfred Martin MD 05/28/17 Reported Medications Aspirin (Aspirin) 325 Mg Tab, 325 MG PO DAILY, #30 TAB 0 Refills 01/22/17 Current Medications Medications (Trade) Dose Ordered Sig/Dylon Route Start Time Stop Time Status Last Admin (Zofran Inj) 4 mg Q6H PRN IVP 10/25/17 20:15 (Tylenol) 650 mg Q6H PRN PO 10/25/17 20:15 (Kane 5-325 Mg) 1 tab Q4H PRN PO 10/25/17 20:15 (Kane 10-325 Mg) 1 tab Q4H PRN PO 10/25/17 20:15 11/03/17 07:57 (Aleah-Colace) 1 tab BID PO 10/25/17 21:00 11/03/17 07:36 (Milk Of Magnesia Liq) 30 ml Q12H PRN PO 10/25/17 20:15 (Senokot) 17.2 mg Q12H PRN PO 10/25/17 20:15 (Dulcolax Supp) 10 mg DAILY PRN RECTAL 10/25/17 20:15 (Lactulose Liq) 30 ml DAILY PRN PO 10/25/17 20:15 10/31/17 08:40 (Lipitor) 10 mg DAILY PO 10/26/17 09:00 11/03/17 07:38 (Valium) 5 mg Q12HR PO 10/25/17 21:00 11/03/17 07:36 (Ativan Inj) 1 mg Q6HR PRN IV PUSH 10/26/17 15:00 (Vasotec Inj) 1.25 mg Q8H PRN IV PUSH 10/27/17 13:45 11/01/17 13:17 (NS Flush) 2 ml BID IV FLUSH 10/27/17 21:00 11/03/17 07:38 (NS Flush) 2 ml UNSCH PRN IV FLUSH 10/27/17 21:00 Heparin Sodium/ Dextrose 250 ml @ 7 mls/hr TITRATE PRN IV 10/27/17 22:30 11/02/17 12:05 (Aspirin Supp) 300 mg DAILY RECTAL 10/28/17 09:00 11/03/17 07:37 (Morphine Inj) 1 mg Q4H PRN IV 10/28/17 08:15 (Morphine Inj) 2 mg Q4H PRN IV 10/28/17 08:15 10/28/17 08:25 (Coumadin) 5 mg DAILY@1600 PO 10/29/17 16:00 Future hold 11/02/17 16:23 (Keppra) 1,000 mg Q12HR PO 10/29/17 21:00 11/03/17 07:36 (SEROquel) 50 mg BID@09,12 PO 11/01/17 09:00 11/03/17 13:07 (Coreg) 3.125 mg Q12HR PO 10/31/17 21:00 Future hold 11/03/17 07:37 (Prinivil) 2.5 mg DAILY PO 11/01/17 09:00 11/03/17 07:36 (Pill Splitter) 1 ea UNSCH PRN OTHER 10/31/17 16:45 (ZyPREXA INJ) 10 mg Q12H PRN IM 11/01/17 13:15 11/03/17 07:37 Pharmacy Profile Note 0 ml @ 0 mls/hr UNSCH OTHER 11/02/17 08:45 Potassium Chloride/Sodium Chloride 1,000 ml @ 42 mls/hr [id number] IV 11/03/17 14:00 11/03/17 13:44 Patient's Strengths (min. 2) She has the support of her son Physical Exam Vital Signs Vital Signs Date Time Temp Pulse Resp B/P (MAP) Pulse Ox O2 Delivery O2 Flow Rate FiO2 11/03/17 12:00 97.7 84 22 145/67 (93) 100 11/03/17 08:07 Nasal Cannula 11/02/17 09:42 21 I/O 11/03/17 11/03/17 11/04/17 08:00 16:00 00:00 Intake Total 230 ml Balance 230 ml Lab Results Test 11/02/17 14:45 11/03/17 13:00 Activated Partial Thromboplast Time 47.6 SEC 40.5 SEC Prothrombin Time 32.1 SEC Prothromb Time International Ratio 3.2 RATIO Date/Time Source Procedure Growth Status 10/25/17 20:00 Urine Catheterized Urine Urine Culture - Final 10-50,000 CFU/ML MIXED GRAM POSITIVE ... Complete Mental Status Examination Appearance: Disheveled Consciousness: Lethargic, Clouded Orientation: Person Motor Activity: Abnormal gait Speech: Incoherent Language: Other (unable to assess due to sedation) Attention and Concentration: Inadequate Memory: Impaired Mood: Irritable, Other (unable to assess due to sedation) Affect: Other (somnolent and lethargic) Thought Process & Associations: Other (unable to assess due to sedation) Thought Content: Other (unable to assess due to sedation) Hallucination Type: None Suicidal Ideation: No Suicidal Plan: No Suicidal Intention: No Homicidal Ideation: No Homicidal Plan: No Homicidal Intention: No Insight: Poor Judgment: Poor Assessment & Plan Problem List: (1) Delirium due to another medical condition ICD Codes: F05 - Delirium due to known physiological condition (2) CVA (cerebral vascular accident) ICD Codes: I63.9 - Cerebral infarction, unspecified Assessment & Plan Patient is 67-year-old woman who carries a diagnosis bipolar disorder with remote psychiatric hospitalizations who was admitted to the medical service for mental status secondary to CVA which patient at this time is unable to participate in interview due to sedation from olanzapine IM given this morning. Patient due to recent CVA may be undergoing delirium which impede her decisional making capacity at this time will be unable to make appropriate decisions in regards to her care. Patient currently too sedated to participate in evaluation of decisional capacity at this time. In the event the patient continues to be noted to be delirious patient may continue to have decisional capacity secondary to this. We'll attempt to reassess patient when awake and less lethargic. We'll continue to follow. Consult appreciated Theron Walker MD Nov 03, 2017 14:51
[2017-11-04] VITALS (10 sets, daily range): BP systolic 116–176; BP diastolic 58–78; PULSE 89–118; RESP 20–29; TEMP 97.6–102.4; O2SAT 94–100
[2017-11-04] MEDS: ACETAMINOPHEN/HYDROcodone 325 MG/10 MG TAB PO PRN (03:36)
[2017-11-04 05:56] LABS: PROTHROMBIN TIME - PATIENT 30.7 SEC (9.8-11.6)
[2017-11-04] MEDS: levETIRAcetam 500 MG TAB PO SCH ×2 (08:22→21:33)
[2017-11-04] MEDS: ATORVASTATIN 10 MG TAB PO SCH (08:24)
[2017-11-04] MEDS: QUEtiapine FUMARATE 25 MG TAB PO SCH ×2 (08:24→12:00)
[2017-11-04] MEDS: LISINOPRIL 5 MG TAB PO SCH (08:24)
[2017-11-04] MEDS: CARVEDILOL 3.125 MG TAB PO SCH ×2 (08:24→21:33)
[2017-11-04] MEDS: SODIUM CHLORIDE 0.9% FLUSH 10 ML FLUSH IV FLUSH SCH ×2 (08:24→21:34)
[2017-11-04] MEDS: DIAZEPAM 5 MG TAB PO SCH ×2 (08:24→21:33)
[2017-11-04] MEDS: DOCUSATE SODIUM 50 MG/SENNA 8.6 MG TAB PO SCH ×2 (08:24→21:00)
[2017-11-04] MEDS: ACETAMINOPHEN 325 MG TAB PO PRN ×2 (08:46→17:50)
[2017-11-04] MEDS: LACTOBACILLUS ACIDOPHILUS TAB PO SCH ×3 (09:00→17:03)
[2017-11-04] MEDS ORDERED: RESP: ALBUTEROL 0.63 MG/3 ML NEB (PRN) NEB (09:00)
--- NOTE | 2017-11-04 09:56 | RADRPT ---
EXAM DATE/TIME: 11/04/2017 09:26 [facility] COMPARISON: HUMERUS RIGHT (MIN 2VWS), October 25, 2017, 20:09. INDICATIONS : Cough. MEDICAL HISTORY : Stroke. Hypertension Cardiovascular disease. SURGICAL HISTORY : None. ENCOUNTER: Subsequent ACUITY: 1 week PAIN SCORE: Non-responsive. LOCATION: Bilateral chest FINDINGS: A single view of the chest demonstrates the lungs to be symmetrically aerated without evidence of mas s, infiltrate or effusion. The cardiomediastinal contours are unremarkable. Osseous structures demo nstrate a partially healed fracture of the right proximal humerus. CONCLUSION: No acute cardiopulmonary findings identified. Known fracture of the proximal right humerus. Nikolas Stewart MD on November 04, 2017 at 9:52 Board Certified Radiologist. This report was verified electronically.
[2017-11-04] MEDS ORDERED: VANCOMYCIN INJ 1,150 MG in SODIUM CHLOR 0.9% 250 ML INJ 250 ML IV STA (10:08)
[2017-11-04] MEDS ORDERED: PIPERACIL-TAZO 4.5 GM PREMIX 100 ML IV STA (10:08)
[2017-11-04] MEDS ORDERED: Vancomycin Consult Pharmacy 1 EA OTHER SCH (10:15)
[2017-11-04] MEDS ORDERED: VANCOMYCIN INJ 1,000 MG in SODIUM CHLOR 0.9% 250 ML INJ 250 ML IV SCH (10:15)
[2017-11-04] MEDS ORDERED: SODIUM CHLORIDE 0.9% FLUSH 10 ML FLUSH IV FLUSH PRN (10:15)
--- NOTE | 2017-11-04 10:16 | HHI.PR ---
Subjective Remarks Follow-up fever and encephalopathy. Called by RN to evaluate patient secondary to fever and encephalopathy. Patient less responsive today Tmax 102. She is lethargic but not answering questions and following commands. She is moving her left side of the body she has baseline paralysis in the right secondary to CVA. No cough, vomiting and diarrhea Objective Vitals Vital Signs Date Time Temp Pulse Resp B/P (MAP) Pulse Ox O2 Delivery O2 Flow Rate FiO2 11/04/17 08:46 102.4 11/04/17 08:00 95 21 11/04/17 08:00 97.6 116 26 149/67 (94) 94 11/04/17 04:00 104 11/04/17 04:00 100.3 118 29 166/78 (107) 99 11/04/17 00:14 98.7 114 25 176/77 (110) 95 11/04/17 00:00 108 11/03/17 20:02 97.8 110 41 144/81 (102) 97 11/03/17 20:00 116 11/03/17 19:00 97 Room Air 11/03/17 16:00 99 11/03/17 16:00 98.5 96 22 143/86 (105) 96 11/03/17 12:00 75 11/03/17 12:00 97.7 84 22 145/67 (93) 100 I/O 11/03/17 11/03/17 11/03/17 11/04/17 11/04/17 11/04/17 07:00 15:00 23:00 07:00 15:00 23:00 Intake Total 230 ml 240 ml 340 ml Balance 230 ml 240 ml 340 ml Intake Oral 230 ml 240 ml 340 ml # Voids 1 2 4 # Bowel Movements 1 1 1 Imaging Last Impressions Chest X-Ray 11/04/17 0000 Signed Impressions: Service Date/Time: Saturday, November 04, 2017 09:26 - CONCLUSION: No acute cardiopulmonary findings identified. Known fracture of the proximal right humerus. Nikolas Stewart MD Neck CTA 10/27/17 0000 Signed Impressions: Service Date/Time: Friday, October 27, 2017 17:42 - CONCLUSION: 1. Occluded left internal carotid artery 2. Mild narrowing at the origin of the right internal carotid artery measuring 30%%. 3. Patent vertebral arteries with good flow. Price Cee MD Head CTA 10/27/17 0000 Signed Impressions: Service Date/Time: Friday, October 27, 2017 17:42 - CONCLUSION: 1. Occluded intracranial segment of the left internal carotid artery. 2. Very scant flow in the left middle cerebral artery distribution with proximal MCA occlusion. 3. Evolving large left MCA infarct. Price Cee MD Head CT 10/27/17 0000 Signed Impressions: Service Date/Time: Friday, October 27, 2017 17:34 - CONCLUSION: 1. No evidence of acute right-sided infarction. Cystic encephalomalacia involving the left middle cerebral artery distribution unchanged 2. Pansinusitis Soren Rose MD Carotid Artery Ultrasound 10/27/17 0000 Signed Impressions: Service Date/Time: Friday, October 27, 2017 16:16 - CONCLUSION: 1. Findings of left carotid occlusion. CT angiography of the carotid arteries the brain is recommended for further evaluation Soren Rose MD Brain MRI 10/26/17 0000 Signed Impressions: Service Date/Time: Thursday, October 26, 2017 16:34 - CONCLUSION: Cystic encephalomalacia involving large left middle cerebral artery ischemic infarction. There is a small focus of restricted diffusion in the posterior left frontal region without hemorrhage characteristic of extension of the infarct. Pansinusitis Soren Rose MD Radius/Ulna X-Ray 10/25/17 Signed Impressions: Service Date/Time: Wednesday, October 25, 2017 20:03 - CONCLUSION: 1. No acute fracture or dislocation. No bony destructive changes. Carlton Early MD Humerus X-Ray 10/25/17 Signed Impressions: Service Date/Time: Wednesday, October 25, 2017 20:09 - CONCLUSION: 1. Subacute right humeral neck fracture with Callus formation. No significant change in displacement compared with September 30. Carlton Early MD Objective Remarks GENERAL: This is a well-nourished, well-developed patient, in no apparent distress. SKIN: no rash or lesions CARDIOVASCULAR: Regular rate and regular rhythm without murmurs, gallops, or rubs. RESPIRATORY: Clear to auscultation. Breath sounds equal bilaterally. No wheezes , rales, or rhonchi. GASTROINTESTINAL: Abdomen soft, non-tender, nondistended. Normal, active bowel sounds MUSCULOSKELETAL: Extremities without clubbing, cyanosis, or edema. NEURO: Lethargic but answering questions and not following commands. Baseline right sided weakness. Procedures none A/P Problem List: (1) Encephalopathy ICD Code: G93.40 - Encephalopathy, unspecified (2) CVA (cerebral vascular accident) ICD Code: I63.9 - Cerebral infarction, unspecified (3) HTN (hypertension) ICD Code: I10 - Essential (primary) hypertension (4) Tobacco abuse ICD Code: Z72.0 - Tobacco use Assessment and Plan 1. 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 Occluded left ICA, continue Coumadin discontinue aspirin and IV heparin. Continue statin. PT / ST consulted. 2. seizure; continue keppra- neurology following. 3. HTN: JAYLEN and beta evonne started with vasotec prn. 4. Agitation hx Bipolar DO. Seroquel increased. Add IM Zyprexa as needed. Monitor QT duration. Reconsulted psychiatry to evaluate for competency. Unable to assess at this time secondary to delirium 5. Cardiomyopathy EF 30%. Ischemic workup but patient refused Lexiscan. Uptitrate beta evonne and JAYLEN inhibitor 6. Fever suspect sepsis with fever, tachycardia, tachycardia, tachypnea, leukocytosis and bandemia. Chest x-ray and urinalysis unremarkable. Start empiric IV vancomycin and Zosyn. Follow-up blood culture. Consult ID FEN. IVF if poor PO DVT Prophylaxis: Coumadin Discharge Planning transfer to [address] [place] [address] then [facility] when INR is therapeutic consulted palliative care to clarify goals of care. Previous rehabilitation facility refused to take patient because of unpaid bills Elias Vanegas MD Nov 04, 2017 10:16
[2017-11-04 10:24] LABS: BILIRUBIN, URINE NEG (NEG); BLOOD, URINE NEG (NEG); GLUCOSE,URINE NEG (NEG); KETONE, URINE NEG (NEG); NITRITE,URINE NEG (NEG); PH, URINE 5.5 (5.0-8.5); SQUAMOUS EPITHELIAL CELL URINE <1 /hpf (0-5); URINE COLOR YELLOW (YELLW/STRAW); URINE LEUKOCYTE ESTERASE TRACE (NEG)
[2017-11-04] MEDS ORDERED: VANCOMYCIN 1,000 MG/NS 250 ML IV ONE ×2 (10:30)
[2017-11-04 11:15] LABS: AUTOMATED NEUTROPHIL # 10.4 TH/MM3 (1.8-7.7); BASOPHIL % 0.2 % (0.0-2.0); EOSINOPHIL % 0.3 % (0.0-4.0); HEMATOCRIT 34.9 % (35.0-46.0); HEMOGLOBIN 12.3 GM/DL (11.6-15.3); LYMPH % 6.2 % (9.0-44.0); LYMPHOCYTE # 0.8 TH/MM3 (1.0-4.8); MEAN CORPUSCULAR HEMOGLOBIN 31.5 PG (27.0-34.0); MEAN CORPUSCULAR HGB CONC 35.3 % (32.0-36.0); MEAN PLATELET VOLUME 8.5 FL (7.0-11.0); MONO % 9.3 % (0.0-8.0); MONOCYTE # 1.2 TH/MM3 (0-0.9); PLATELET COUNT 238 TH/MM3 (150-450); RED BLOOD COUNT 3.92 MIL/MM3 (4.00-5.30); RED CELL DISTRIBUTION WIDTH 14.7 % (11.6-17.2); WHITE BLOOD COUNT 12.4 TH/MM3 (4.0-11.0)
[2017-11-04 11:24] LABS: BICARBONATE 26.2 MEQ/L (21.0-32.0); CALCIUM 8.7 MG/DL (8.5-10.1); CREATININE 0.89 MG/DL (0.50-1.00); MAGNESIUM 1.8 MG/DL (1.5-2.5)
[2017-11-04] MEDS ORDERED: VANCOMYCIN 1,000 MG/NS 250 ML IV SCH ×2 (12:00)
[2017-11-04 12:21] LABS: BANDS 34 % (0-6); LYMPHOCYTES 3 % (9-44); MONOCYTES 10 % (0-8); NEUTROPHIL # MANUAL DIFF 10.7 TH/MM3 (1.8-7.7); POLYS (SEG NEUTROPHILS) 52 % (16-70)
[2017-11-04] MEDS: NS + KCL 20 MEQ INJ 1,000 ML IV SCH (13:02)
[2017-11-04] MEDS: PIPERACIL-TAZO 4.5 GM PREMIX 100 ML IV SCH ×2 (15:23→21:33)
--- NOTE | 2017-11-04 15:47 | HHI.HCPN ---
Reason for visit a. To assist with evaluation and management of symptoms including: Altered mental status, agitation, physical deconditioning b. To assist medical decision maker(s) with: better understanding of current medical conditions; weighing benefits/burdens of medical treatment options; making medical treatment decisions. Subjective/Interval History Ms Rodríguez is a 67 years old female with a past medical history CVA with residual aphasia, right hemiplegia and left hemiparesis, hypertension, Diabetes Mellitus- Type 2, anxiety disorder, bipolar disorder, osteoarthritis and insomnia. Patient was admitted from 05/20/17-05/29/17 and treated for an acute left frontoparietal CVA .She was discharged to a [facility]. Patient was transported by EMS to the ER on 10/25/17 with a complaint of altered mental status. Patient was found slumped over after she had wheeled herself outside to smoke, and ecchymosis to right humerus and forearm. Patient seen and examined in the room on [facility]. Patient sleeping, easily arousable to verbal stimulation, lethargic and nonverbal today. No signs of acute distress and discomfort. Patient has ice paks under her armpits, had a Tmax of 102.4 degrees F axillary today. HR 90s-low 100s. SBP low 100s to 160s. Patient started on vancomycin and Zosyn. Infectious disease Dr. Tellez consulted. Laboratory workup today revealing WBC 12.4, hemoglobin 12.3, hematocrit 34.9, platelet count 238, sodium 140, potassium 3.8, BUN/creatinine 8 /0.89, lactic acid 1.0. Chest x-ray revealed no acute cardiopulmonary findings. Known fracture of the proximal right humerus. Sling and swath ordered. Physical therapy, speech therapy and occupational therapy following. Case discussed with bedside ABIGAIL Younger. . Family/friend interactions No family at bedside . Advance Directives Living Will: Never completed Health Care Surrogate: Never completed Durable Power of Meter Mechanic: Never completed Advance Directive Specifics Health Care Surrogate(s): Health Care Proxy- Raul Mohamud- [phone] . Objective Vital Signs Date Time Temp Pulse Resp B/P (MAP) Pulse Ox O2 Delivery O2 Flow Rate FiO2 11/04/17 15:00 100.8 96 21 132/60 (84) 100 11/04/17 12:00 98 11/04/17 11:59 100.3 96 25 116/58 (77) 100 11/04/17 08:46 102.4 11/04/17 08:00 95 21 11/04/17 08:00 112 11/04/17 08:00 97.6 116 26 149/67 (94) 94 11/04/17 04:00 104 11/04/17 04:00 100.3 118 29 166/78 (107) 99 11/04/17 00:14 98.7 114 25 176/77 (110) 95 11/04/17 00:00 108 11/03/17 20:02 97.8 110 41 144/81 (102) 97 11/03/17 20:00 116 11/03/17 19:00 97 Room Air 11/03/17 16:00 99 11/03/17 16:00 98.5 96 22 143/86 (105) 96 Intake & Output 11/04/17 11/04/17 07:00 19:00 Intake Total 340 ml 100 ml Balance 340 ml 100 ml Intake Oral 340 ml IV Total 100 ml # Voids 4 # Bowel Movements 1 Physical Exam CONSTITUTIONAL/GENERAL: This is an adequately nourished patient, in no apparent distress. TUBES/LINES/DRAINS: PIV SKIN: No jaundice, rashes, or lesions. Ecchymoses on upper extremities. No wounds seen anteriorly. Skin temperature appropriate. Not diaphoretic. HEAD: Atraumatic. Normocephalic. EYES: Pupils equal and round and reactive. Extraocular motions intact. No scleral icterus. No injection or drainage. Fundi not examined. ENT: Hearing grossly normal. Nose without bleeding or purulent drainage. Moist oral mucosa. NECK: Trachea midline. Supple, nontender. CARDIOVASCULAR: Regular rate and rhythm without murmurs, gallops, or rubs. No JVD. Peripheral pulses symmetric. RESPIRATORY/CHEST: Symmetric, unlabored respirations. Clear to auscultation. Breath sounds equal bilaterally. No wheezes, rales, or rhonchi. GASTROINTESTINAL: Abdomen soft, non-tender, nondistended. No guarding. Bowel sounds present. GENITOURINARY: Without palpable bladder distension. Medrano catheter in place. MUSCULOSKELETAL: Extremities without clubbing, cyanosis, or edema. No joint tenderness or effusion noted. No calf tenderness. No mottling or clubbing. NEUROLOGICAL: Awake and lethargic, not verbalizing today. flaccid to right side. Spontaneously Moves left upper and lower extremities. PSYCHIATRIC: No obvious anxiety/depression. no apparent hallucinations or other psychotic thought process. . Diagnostic Tests Laboratory Laboratory Tests Test 11/02/17 05:42 11/02/17 14:45 11/03/17 13:00 11/04/17 04:04 Prothrombin Time 13.7 SEC (9.8-11.6) 32.1 SEC (9.8-11.6) 30.7 SEC (9.8-11.6) Prothromb Time International Ratio 1.4 RATIO 3.2 RATIO 3.0 RATIO Activated Partial Thromboplast Time 32.7 SEC (24.3-30.1) 47.6 SEC (24.3-30.1) 40.5 SEC (24.3-30.1) 49.2 SEC (24.3-30.1) Test 11/04/17 09:55 11/04/17 10:41 11/04/17 13:38 Urine Color YELLOW (YELLW/STRAW) Urine Turbidity CLEAR (CLEAR) Urine pH 5.5 (5.0-8.5) Urine Specific [place] 1.019 (1.002-1.035) Urine Protein TRACE mg/dL (NEG-TRACE) Urine Glucose (UA) NEG mg/dL (NEG) Urine Ketones NEG mg/dL (NEG) Urine Occult Blood NEG (NEG) Urine Nitrite NEG (NEG) Urine Bilirubin NEG (NEG) Urine Urobilinogen LESS THAN 2.0 MG/DL (LESS Urine Leukocyte Esterase TRACE (NEG) Urine RBC LESS THAN 1 /hpf (0-3) Urine WBC 3 /hpf (0-5) Urine Squamous Epithelial Cells <1 /hpf (0-5) Microscopic Urinalysis Comment CULT NOT INDICATED White Blood Count 12.4 TH/MM3 (4.0-11.0) Red Blood Count 3.92 MIL/MM3 (4.00-5.30) Hemoglobin 12.3 GM/DL (11.6-15.3) Hematocrit 34.9 % (35.0-46.0) Mean Corpuscular Volume 89.0 FL (80.0-100.0) Mean Corpuscular Hemoglobin 31.5 PG (27.0-34.0) Mean Corpuscular Hemoglobin Concent 35.3 % (32.0-36.0) Red Cell Distribution Width 14.7 % (11.6-17.2) Platelet Count 238 TH/MM3 (150-450) Mean Platelet Volume 8.5 FL (7.0-11.0) Neutrophils (%) (Auto) 84.0 % (16.0-70.0) Lymphocytes (%) (Auto) 6.2 % (9.0-44.0) Monocytes (%) (Auto) 9.3 % (0.0-8.0) Eosinophils (%) (Auto) 0.3 % (0.0-4.0) Basophils (%) (Auto) 0.2 % (0.0-2.0) Neutrophils # (Auto) 10.4 TH/MM3 (1.8-7.7) Lymphocytes # (Auto) 0.8 TH/MM3 (1.0-4.8) Monocytes # (Auto) 1.2 TH/MM3 (0-0.9) Eosinophils # (Auto) 0.0 TH/MM3 (0-0.4) Basophils # (Auto) 0.0 TH/MM3 (0-0.2) CBC Comment AUTO DIFF Differential Total Cells Counted 100 Neutrophils % (Manual) 52 % (16-70) Band Neutrophils % 34 % (0-6) Lymphocytes % 3 % (9-44) Monocytes % 10 % (0-8) Eosinophils % 1 % (0-4) Neutrophils # (Manual) 10.7 TH/MM3 (1.8-7.7) Differential Comment FINAL DIFF MANUAL Platelet Estimate NORMAL (NORMAL) Platelet Morphology Comment NORMAL (NORMAL) Red Cell Morphology Comment NORMAL (NORMAL) Blood Urea Nitrogen 18 MG/DL (7-18) Creatinine 0.89 MG/DL (0.50-1.00) Random Glucose 121 MG/DL (74-106) Calcium Level 8.7 MG/DL (8.5-10.1) Magnesium Level 1.8 MG/DL (1.5-2.5) Sodium Level 140 MEQ/L (136-145) Potassium Level 3.8 MEQ/L (3.5-5.1) Chloride Level 106 MEQ/L (98-107) Carbon Dioxide Level 26.2 MEQ/L (21.0-32.0) Anion Gap 8 MEQ/L (5-15) Estimat Glomerular Filtration Rate 63 ML/MIN (>89) Lactic Acid Level 1.0 mmol/L (0.4-2.0) Result Diagram: 11/04/17 1041 11/04/17 1041 Microbiology Microbiology Date/Time Source Procedure Growth Status 11/04/17 10:49 Blood Peripheral Aerobic Blood Culture Pending Received 11/04/17 10:49 Blood Peripheral Anaerobic Blood Culture Pending Received 11/04/17 10:41 Blood Peripheral Aerobic Blood Culture Pending Received 11/04/17 10:41 Blood Peripheral Anaerobic Blood Culture Pending Received Imaging Last 24 hours Impressions Chest X-Ray 11/04/17 0000 Signed Impressions: Service Date/Time: Saturday, November 04, 2017 09:26 - CONCLUSION: No acute cardiopulmonary findings identified. Known fracture of the proximal right humerus. Nikolas Stewart MD Assessment and Plan Disease Oriented Problem List: (1) CVA (cerebral vascular accident) (2) HTN (hypertension) (3) Encephalopathy (4) Tobacco abuse Symptom Scale: (1) Altered mental status 0-10 Scale: Unable to quantify Comment: Multifactorial. History of bipolar disorder and CVA . (2) Physical deconditioning 0-10 Scale: Unable to quantify Comment: Progressive. . Pertinent Non-Medical Issues Psychosocial:Patient was born in [facility]. She is . Patient graduated from college and is a bachelor's degree in education. 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 Spiritual:Patient is [employer] Legal: Ethical issues impacting care: None identified at this time. . Important Contacts Son- Raul Bennett- [phone] Sister Harvey Fernandez [phone] Sister Michelle Raza [phone] . Prognosis Ms Rodríguez is a 67 years old female with a past medical history CVA with residual aphasia, right hemiplegia and left hemiparesis, hypertension, Diabetes Mellitus- Type 2, anxiety disorder, bipolar disorder, osteoarthritis and insomnia. Patient was admitted from 05/20/17-05/29/17 and treated for an acute left frontoparietal CVA .She was discharged to a [facility]. Patient was transported by EMS to the ER on 10/25/17 with a complaint of altered mental status. Patient was found slumped over after she had wheeled herself outside to smoke, and ecchymosis to right humerus and forearm. Clinical course complicated with evolving left hemisphere CVA, agitation, and delirium. Given ongoing comorbidities, patient remains at high risk for further complications, deterioration and decline. . Code Status: Full Code Plan PLAN: Legal decision maker: Patient has a history of stroke with expressive aphasia , agitation and altered mental status during this hospitalization. Patient is not able to participate in her own medical decision making. Patient has an adult son who according to [place] Statute will serve as patient`s Health Care Proxy. Goals: Aggressive CODE STATUS: Full Code SYMPTOMS: * Altered mental status:Multifactorial. History of bipolar disorder and CVA. Head CTA 10/27/17 revealed evolving CVA. Was on Haldol which was discontinued on . Patient is also on Valium 5mg BID.Patient on Seroquel 50mg BID. No recommendations. * Agitation: Multifactorial. History of bipolar disorder and CVA with expressive aphasia. Psychiatry consulted. On Seroquel 50mg BID. Zyprexa 10mg IM Q 12 hrs prn. Last dose 11/03/17 in a.m. Seems to be compounded with inability to communicate her needs. Patient lethargic and calm. No recommendations. * Physical deconditioning: Progressive. Patient has a history CVA with Residual Aphasia,Right Hemiplegia and Left Hemiparesis. During her admission in January 2017 patient weight 79.7kgs and on October 28, 2017 patient weighed 59.9kgs. Physical therapy consulted. Occupational therapy consulted and recommended OT at rehabilitation. Patient's participation is limited due to expressive aphasia, inability to comprehend complex commands, right hemiplegia and left hemiparesis. Speech therapy consulted, recommended speech therapy at rehabilitation. Occupational therapy and physical therapy following. No recommendations at this time. Palliative care will continue to follow the patient during hospital course as condition evolves, to assist patient/decision-maker with understanding of their medical conditions, weighing benefits/burdens of treatment options, for clarification of goals of treatment. Additionally will assist with any symptoms of palliative concern Attestation To help prompt me to consider important information that might be impacting today's encounter and assessment, information from prior notes written by myself or my colleagues may have been "brought forward" into today's note. My signature on this note, however, is an attestation that I personally performed the exam, history, and/or decision-making noted today, and, unless otherwise indicated, the interactions with patient, family, and staff as well as the review of records all occurred today. I also attest that the listed assessment and stated plan reflect my best clinical judgment today based on the combination of historical information, prior notes, and today's exam/ interactions. When time spent is documented, it refers only to time spent today by the signer, or if indicated, combined time spent today by collaborating physician/nurse practitioner. Susan Dawson Nov 04, 2017 15:47
[2017-11-04] MEDS ORDERED: WARFARIN SOD 5 MG TAB PO SCH (16:00)
--- NOTE | 2017-11-04 16:28 | PD.ID.CON ---
History of Present Illness Service ID Consult Requested By Dr Vanegas Reason for Consult fever Primary Care Physician Raymundo David MD Diagnoses: History of Present Illness Pt unable to provide history HIstory obtained from the chart and from other providers 67 yo with h/o srtroek and severe baseline neurodeficits (afasia, R sided hemiplagia) admitted 1 week ago sp fall She was diagnosed with seizure, new left hemisphere cva and recurrent tia She now has fever of 102 for 1 day Pt is having diarrhea, 1 very large BM reported by spa manager/esthetician of Systems ROS Limitations: Clinical Condition, Altered Mental Status Past Family Social History Allergies: Coded Allergies: No Known Allergies (Verified Allergy, Unknown, 10/25/17) Past Medical History CVA w/ Residual Aphasia, Right Hemiplegia and Left Hemiparesis, HTN, DM, Bipolar Disorder and Tobacco Abuse Past Surgical History Appendectomy, , Fibroid Resection Active Ordered Medications Medications where reviewed in EMR Antibiotics Include: vancomuycin zosyn Family History Reviewed. Non contributory Social History Negative for alcohol or drugs. Positive for tobacco. Physical Exam Vital Signs Vital Signs Date Time Temp Pulse Resp B/P (MAP) Pulse Ox O2 Delivery O2 Flow Rate FiO2 11/04/17 16:00 99 11/04/17 15:00 100.8 96 21 132/60 (84) 100 11/04/17 12:00 98 11/04/17 11:59 100.3 96 25 116/58 (77) 100 11/04/17 08:46 102.4 11/04/17 08:00 95 21 11/04/17 08:00 112 11/04/17 08:00 97.6 116 26 149/67 (94) 94 11/04/17 04:00 104 11/04/17 04:00 100.3 118 29 166/78 (107) 99 11/04/17 00:14 98.7 114 25 176/77 (110) 95 11/04/17 00:00 108 11/03/17 20:02 97.8 110 41 144/81 (102) 97 11/03/17 20:00 116 11/03/17 19:00 97 Room Air Physical Exam CONSTITUTIONAL/GENERAL: This is an adequately nourished patient, in no apparent distress. TUBES/LINES/DRAINS: SKIN: No jaundice, rashes, or lesions. Ecchymoses on upper extremities. No wounds seen anteriorly. Skin temperature appropriate. Not diaphoretic. HEAD: Atraumatic. Normocephalic. EYES: Pupils equal and round and reactive. Extraocular motions intact. No scleral icterus. No injection or drainage. Fundi not examined. ENT: Hearing jnot tested. Nose without bleeding or purulent drainage. Throat without visible erythema, exudates, masses, or lesions. NECK: Trachea midline. Supple, nontender. No palpable thyroid enlargement or nodularity. CARDIOVASCULAR: Regular rate and rhythm without murmurs, gallops, or rubs. No JVD. Peripheral pulses symmetric. RESPIRATORY/CHEST: Symmetric, unlabored respirations. Clear to auscultation. Breath sounds equal bilaterally. No wheezes, rales, or rhonchi. GASTROINTESTINAL: Abdomen soft, no reaction to palpation, moderttely distended. No hepato-splenomegaly, or palpable masses. No guarding. Bowel sounds present. Incontinent of liquid stool GENITOURINARY: Without palpable bladder distension. MUSCULOSKELETAL: Extremities without clubbing, cyanosis, or edema. No joint tenderness or effusion noted. No calf tenderness. No mottling or clubbing. LYMPHATICS: No palpable cervical or supraclavicular adenopathy. NEUROLOGICAL: Lethargic, nearly obtunded. Opens eyes with a lot of stimul;ation , biut not follows commandsNon verbal Moves LUE/LLE PSYCHIATRIC: unable to assess Laboratory Laboratory Tests Test 11/04/17 04:04 11/04/17 09:55 11/04/17 10:41 11/04/17 13:38 Prothrombin Time 30.7 Prothromb Time International Ratio 3.0 Activated Partial Thromboplast Time 49.2 Urine Color YELLOW Urine Turbidity CLEAR Urine pH 5.5 Urine Specific [place] 1.019 Urine Protein TRACE Urine Glucose (UA) NEG Urine Ketones NEG Urine Occult Blood NEG Urine Nitrite NEG Urine Bilirubin NEG Urine Urobilinogen LESS THAN 2.0 Urine Leukocyte Esterase TRACE Urine RBC LESS THAN 1 Urine WBC 3 Urine Squamous Epithelial Cells <1 Microscopic Urinalysis Comment CULT NOT INDICATED White Blood Count 12.4 Red Blood Count 3.92 Hemoglobin 12.3 Hematocrit 34.9 Mean Corpuscular Volume 89.0 Mean Corpuscular Hemoglobin 31.5 Mean Corpuscular Hemoglobin Concent 35.3 Red Cell Distribution Width 14.7 Platelet Count 238 Mean Platelet Volume 8.5 Neutrophils (%) (Auto) 84.0 Lymphocytes (%) (Auto) 6.2 Monocytes (%) (Auto) 9.3 Eosinophils (%) (Auto) 0.3 Basophils (%) (Auto) 0.2 Neutrophils # (Auto) 10.4 Lymphocytes # (Auto) 0.8 Monocytes # (Auto) 1.2 Eosinophils # (Auto) 0.0 Basophils # (Auto) 0.0 CBC Comment AUTO DIFF Differential Total Cells Counted 100 Neutrophils % (Manual) 52 Band Neutrophils % 34 Lymphocytes % 3 Monocytes % 10 Eosinophils % 1 Neutrophils # (Manual) 10.7 Differential Comment FINAL DIFF MANUAL Platelet Estimate NORMAL Platelet Morphology Comment NORMAL Red Cell Morphology Comment NORMAL Blood Urea Nitrogen 18 Creatinine 0.89 Random Glucose 121 Calcium Level 8.7 Magnesium Level 1.8 Sodium Level 140 Potassium Level 3.8 Chloride Level 106 Carbon Dioxide Level 26.2 Anion Gap 8 Estimat Glomerular Filtration Rate 63 Lactic Acid Level 1.0 Date/Time Source Procedure Growth Status 11/04/17 10:49 Blood Peripheral Aerobic Blood Culture Pending Received 11/04/17 10:49 Blood Peripheral Anaerobic Blood Culture Pending Received 10/25/17 20:00 Urine Catheterized Urine Urine Culture - Final 10-50,000 CFU/ML MIXED GRAM POSITIVE ... Complete Result Diagram: 11/04/17 1041 11/04/17 1041 Imaging Last Impressions Chest X-Ray 11/04/17 0000 Signed Impressions: Service Date/Time: Saturday, November 04, 2017 09:26 - CONCLUSION: No acute cardiopulmonary findings identified. Known fracture of the proximal right humerus. Nikolas Stewart MD Neck CTA 10/27/17 0000 Signed Impressions: Service Date/Time: Friday, October 27, 2017 17:42 - CONCLUSION: 1. Occluded left internal carotid artery 2. Mild narrowing at the origin of the right internal carotid artery measuring 30%%. 3. Patent vertebral arteries with good flow. Price Cee MD Head CTA 10/27/17 0000 Signed Impressions: Service Date/Time: Friday, October 27, 2017 17:42 - CONCLUSION: 1. Occluded intracranial segment of the left internal carotid artery. 2. Very scant flow in the left middle cerebral artery distribution with proximal MCA occlusion. 3. Evolving large left MCA infarct. Price Cee MD Head CT 10/27/17 0000 Signed Impressions: Service Date/Time: Friday, October 27, 2017 17:34 - CONCLUSION: 1. No evidence of acute right-sided infarction. Cystic encephalomalacia involving the left middle cerebral artery distribution unchanged 2. Pansinusitis Soren Rose MD Carotid Artery Ultrasound 10/27/17 0000 Signed Impressions: Service Date/Time: Friday, October 27, 2017 16:16 - CONCLUSION: 1. Findings of left carotid occlusion. CT angiography of the carotid arteries the brain is recommended for further evaluation Soren Rose MD Brain MRI 10/26/17 0000 Signed Impressions: Service Date/Time: Thursday, October 26, 2017 16:34 - CONCLUSION: Cystic encephalomalacia involving large left middle cerebral artery ischemic infarction. There is a small focus of restricted diffusion in the posterior left frontal region without hemorrhage characteristic of extension of the infarct. Pansinusitis Soren Rose MD Radius/Ulna X-Ray 10/25/17 0000 Signed Impressions: Service Date/Time: Wednesday, October 25, 2017 20:03 - CONCLUSION: 1. No acute fracture or dislocation. No bony destructive changes. Carlton Early MD Humerus X-Ray 10/25/17 0000 Signed Impressions: Service Date/Time: Wednesday, October 25, 2017 20:09 - CONCLUSION: 1. Subacute right humeral neck fracture with Callus formation. No significant change in displacement compared with September 30. Carlton Early MD Course + C.diff test for hypervirulent 027 strain Will stop systemic abx abnd start on oral vanco/IV flafyl Assessment and Plan Assessment and Plan Recurrent CVA New fever ? source - CXR negative Diarrhea, r/o C.diff R/O C.DIFF cont current abx Hodan Tellez MD Nov 04, 2017 16:28
[2017-11-04] MEDS: RESP: ALBUTEROL 0.63 MG/3 ML NEB (SCH) NEB ×2 (16:34→20:34)
[2017-11-04] MEDS ORDERED: metroNIDAZOLE 500 MG TAB PO ONE (20:00)
[2017-11-04] MEDS ORDERED: SODIUM CHLORIDE 0.9% FLUSH 10 ML FLUSH IV FLUSH SCH (21:00)
[2017-11-05] VITALS (9 sets, daily range): BP systolic 101–162; BP diastolic 53–70; PULSE 75–104; RESP 14–20; TEMP 96.7–98.4; O2SAT 97–100
[2017-11-05] MEDS ORDERED: metroNIDAZOLE 500 MG TAB PO SCH
--- NOTE | 2017-11-05 00:14 | HHI.PR ---
Addendum to Inpatient Note Additional Information + C.diff test for hypervirulent 027 strain Will stop systemic abx abnd start on oral vanco/IV flafHodan Padgett MD Nov 05, 2017 00:14
[2017-11-05] MEDS: VANCOMYCIN 500 MG VIAL (FOR ORAL USE ONLY) PO SCH ×5 (00:46→23:33)
[2017-11-05] MEDS: RESP: ALBUTEROL 0.63 MG/3 ML NEB (SCH) NEB ×4 (03:33→20:54)
[2017-11-05] MEDS: SODIUM CHLORIDE 0.9% FLUSH 10 ML FLUSH IV FLUSH SCH ×2 (09:00→21:19)
[2017-11-05] MEDS: QUEtiapine FUMARATE 25 MG TAB PO SCH ×2 (10:01→13:05)
[2017-11-05] MEDS: LACTOBACILLUS ACIDOPHILUS TAB PO SCH ×3 (10:01→16:37)
[2017-11-05] MEDS: ATORVASTATIN 10 MG TAB PO SCH (10:02)
[2017-11-05] MEDS: LISINOPRIL 5 MG TAB PO SCH (10:02)
[2017-11-05] MEDS: DOCUSATE SODIUM 50 MG/SENNA 8.6 MG TAB PO SCH ×2 (10:02→21:00)
[2017-11-05] MEDS: DIAZEPAM 5 MG TAB PO SCH ×2 (10:02→21:18)
[2017-11-05] MEDS: CARVEDILOL 3.125 MG TAB PO SCH ×2 (10:02→21:18)
[2017-11-05] MEDS: metroNIDAZOLE 500 MG INJ 100 ML IV SCH ×3 (10:03→23:33)
[2017-11-05] MEDS: levETIRAcetam 500 MG TAB PO SCH ×2 (10:03→21:18)
[2017-11-05 10:31] LABS: INTERNATIONAL NORMALIZED RATIO 3.3 RATIO; PROTHROMBIN TIME - PATIENT 33.7 SEC (9.8-11.6)
[2017-11-05] MEDS ORDERED: VANCOMYCIN 1,000 MG/NS 250 ML IV SCH ×2 (12:00)
[2017-11-05] MEDS: NS + KCL 20 MEQ INJ 1,000 ML IV SCH (13:07)
--- NOTE | 2017-11-05 16:37 | HHI.HCPN ---
Reason for visit a. To assist with evaluation and management of symptoms including: Altered mental status, agitation, physical deconditioning b. To assist medical decision maker(s) with: better understanding of current medical conditions; weighing benefits/burdens of medical treatment options; making medical treatment decisions. Subjective/Interval History Patient seen and examined in the room on [facility]. Patient is sleeping with no signs of distress or discomfort. Arousable to noxious stimulation. Patient has expressive aphasia. Patient is afebrile, heart rate 90s to low 100s, SBP 120s to 160s. O2 saturation high 90s on room air. No agitation at this time. Patient is not consuming only 10% of her breakfast, 10-25% of lunch and dinner. Stool sample sent on 11/04/17 positive for C Difficile. Patient now on contact isolation. ID following. Patient started on oral vancomycin and metronidazole. Physical therapy following, patient not participating due to agitation. Occupational therapy following. Case discussed with Dr. Heredia and bedside RN. . Family/friend interactions No family at bedside. . Advance Directives Living Will: Never completed Health Care Surrogate: Never completed Durable Power of Wafer Substrate Tester: Never completed Advance Directive Specifics Health Care Surrogate(s): Health Care Proxy- Raul Mohamud- [phone] . Objective Vital Signs Date Time Temp Pulse Resp B/P (MAP) Pulse Ox O2 Delivery O2 Flow Rate FiO2 11/05/17 12:00 93 11/05/17 12:00 96.7 95 16 130/60 (83) 97 11/05/17 08:34 100 21 11/05/17 08:00 101 11/05/17 08:00 98.2 95 14 101/61 (74) 98 11/05/17 04:00 98.4 104 17 162/70 (100) 97 11/05/17 04:00 104 11/05/17 00:41 97 21 11/05/17 00:00 98.0 101 16 126/60 (82) 97 11/05/17 00:00 101 11/04/17 20:34 21 11/04/17 20:00 89 11/04/17 20:00 99.2 93 20 148/66 (93) 98 11/04/17 19:00 98 Room Air Intake & Output 11/05/17 11/05/17 07:00 19:00 Intake Total 420 ml Balance 420 ml Intake Oral 320 ml IV Total 100 ml # Voids 4 # Bowel Movements 1 Physical Exam CONSTITUTIONAL/GENERAL: This is an adequately nourished patient, in no apparent distress. TUBES/LINES/DRAINS: PIV SKIN: No jaundice, rashes, or lesions. Ecchymoses on upper extremities. No wounds seen anteriorly. Skin temperature appropriate. Not diaphoretic. HEAD: Atraumatic. Normocephalic. EYES: Pupils equal and round and reactive. Extraocular motions intact. No scleral icterus. No injection or drainage. Fundi not examined. ENT: Hearing grossly normal. Nose without bleeding or purulent drainage. Moist oral mucosa. NECK: Trachea midline. Supple, nontender. CARDIOVASCULAR: Regular rate and rhythm without murmurs, gallops, or rubs. No JVD. Peripheral pulses symmetric. RESPIRATORY/CHEST: Symmetric, unlabored respirations. Clear to auscultation. Breath sounds equal bilaterally. No wheezes, rales, or rhonchi. GASTROINTESTINAL: Abdomen soft, non-tender, nondistended. No guarding. Bowel sounds present. GENITOURINARY: Without palpable bladder distension. Medrano catheter in place. MUSCULOSKELETAL: Extremities without clubbing, cyanosis, or edema. No joint tenderness or effusion noted. No calf tenderness. No mottling or clubbing. NEUROLOGICAL:Sleeping, arousable to noxious stimulation. flaccid to right side. Spontaneously Moves left upper and lower extremities. PSYCHIATRIC: Currently calm. Sleeping. No obvious anxiety/depression. no apparent hallucinations or other psychotic thought process. . Diagnostic Tests Laboratory Laboratory Tests Test 11/03/17 13:00 11/04/17 04:04 11/04/17 09:55 11/04/17 10:41 Prothrombin Time 32.1 SEC (9.8-11.6) 30.7 SEC (9.8-11.6) Prothromb Time International Ratio 3.2 RATIO 3.0 RATIO Activated Partial Thromboplast Time 40.5 SEC (24.3-30.1) 49.2 SEC (24.3-30.1) Urine Color YELLOW (YELLW/STRAW) Urine Turbidity CLEAR (CLEAR) Urine pH 5.5 (5.0-8.5) Urine Specific Bearden 1.019 (1.002-1.035) Urine Protein TRACE mg/dL (NEG-TRACE) Urine Glucose (UA) NEG mg/dL (NEG) Urine Ketones NEG mg/dL (NEG) Urine Occult Blood NEG (NEG) Urine Nitrite NEG (NEG) Urine Bilirubin NEG (NEG) Urine Urobilinogen LESS THAN 2.0 MG/DL (LESS Urine Leukocyte Esterase TRACE (NEG) Urine RBC LESS THAN 1 /hpf (0-3) Urine WBC 3 /hpf (0-5) Urine Squamous Epithelial Cells <1 /hpf (0-5) Microscopic Urinalysis Comment CULT NOT INDICATED White Blood Count 12.4 TH/MM3 (4.0-11.0) Red Blood Count 3.92 MIL/MM3 (4.00-5.30) Hemoglobin 12.3 GM/DL (11.6-15.3) Hematocrit 34.9 % (35.0-46.0) Mean Corpuscular Volume 89.0 FL (80.0-100.0) Mean Corpuscular Hemoglobin 31.5 PG (27.0-34.0) Mean Corpuscular Hemoglobin Concent 35.3 % (32.0-36.0) Red Cell Distribution Width 14.7 % (11.6-17.2) Platelet Count 238 TH/MM3 (150-450) Mean Platelet Volume 8.5 FL (7.0-11.0) Neutrophils (%) (Auto) 84.0 % (16.0-70.0) Lymphocytes (%) (Auto) 6.2 % (9.0-44.0) Monocytes (%) (Auto) 9.3 % (0.0-8.0) Eosinophils (%) (Auto) 0.3 % (0.0-4.0) Basophils (%) (Auto) 0.2 % (0.0-2.0) Neutrophils # (Auto) 10.4 TH/MM3 (1.8-7.7) Lymphocytes # (Auto) 0.8 TH/MM3 (1.0-4.8) Monocytes # (Auto) 1.2 TH/MM3 (0-0.9) Eosinophils # (Auto) 0.0 TH/MM3 (0-0.4) Basophils # (Auto) 0.0 TH/MM3 (0-0.2) CBC Comment AUTO DIFF Differential Total Cells Counted 100 Neutrophils % (Manual) 52 % (16-70) Band Neutrophils % 34 % (0-6) Lymphocytes % 3 % (9-44) Monocytes % 10 % (0-8) Eosinophils % 1 % (0-4) Neutrophils # (Manual) 10.7 TH/MM3 (1.8-7.7) Differential Comment FINAL DIFF MANUAL Platelet Estimate NORMAL (NORMAL) Platelet Morphology Comment NORMAL (NORMAL) Red Cell Morphology Comment NORMAL (NORMAL) Blood Urea Nitrogen 18 MG/DL (7-18) Creatinine 0.89 MG/DL (0.50-1.00) Random Glucose 121 MG/DL (74-106) Calcium Level 8.7 MG/DL (8.5-10.1) Magnesium Level 1.8 MG/DL (1.5-2.5) Sodium Level 140 MEQ/L (136-145) Potassium Level 3.8 MEQ/L (3.5-5.1) Chloride Level 106 MEQ/L (98-107) Carbon Dioxide Level 26.2 MEQ/L (21.0-32.0) Anion Gap 8 MEQ/L (5-15) Estimat Glomerular Filtration Rate 63 ML/MIN (>89) Lactic Acid Level 1.0 mmol/L (0.4-2.0) Test 11/04/17 13:38 11/05/17 09:50 Stool C. difficile Toxin (PCR) POSITIVE (NEGATIVE) Stl C. difficile Toxin Epiderm 027 PRESUMPTIVE POSITIVE Prothrombin Time 33.7 SEC (9.8-11.6) Prothromb Time International Ratio 3.3 RATIO Result Diagram: 11/04/17 1041 11/04/17 1041 Microbiology Microbiology Date/Time Source Procedure Growth Status 11/04/17 10:49 Blood Peripheral Aerobic Blood Culture - Preliminary NO GROWTH IN 1 DAY Resulted 11/04/17 10:49 Blood Peripheral Anaerobic Blood Culture - Preliminary NO GROWTH IN 1 DAY Resulted 11/04/17 10:41 Blood Peripheral Aerobic Blood Culture - Preliminary NO GROWTH IN 1 DAY Resulted 11/04/17 10:41 Blood Peripheral Anaerobic Blood Culture - Preliminary NO GROWTH IN 1 DAY Resulted Assessment and Plan Disease Oriented Problem List: (1) CVA (cerebral vascular accident) (2) HTN (hypertension) (3) Encephalopathy (4) Tobacco abuse Symptom Scale: (1) Altered mental status 0-10 Scale: Unable to quantify Comment: Multifactorial. History of bipolar disorder and CVA . (2) Physical deconditioning 0-10 Scale: Unable to quantify Comment: Progressive. . Pertinent Non-Medical Issues Psychosocial:Patient was born in [facility]. She is . Patient graduated from college and is a bachelor's degree in education. 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 Spiritual:Patient is Gnosticism Legal: Patient does not have advanced directives. Ethical issues impacting care: None identified at this time. . Important Contacts Son- Raul Bennett- [phone] Sister Harvey Fernandez [phone] Sister Michelle Raza [phone] . Prognosis Ms Rodríguez is a 67 years old female with a past medical history CVA with residual aphasia, right hemiplegia and left hemiparesis, hypertension, Diabetes Mellitus- Type 2, anxiety disorder, bipolar disorder, osteoarthritis and insomnia. Patient was admitted from 05/20/17-05/29/17 and treated for an acute left frontoparietal CVA .She was discharged to a SNF [facility]. Patient was transported by EMS to the ER on 10/25/17 with a complaint of altered mental status. Patient was found slumped over after she had wheeled herself outside to smoke, and ecchymosis to right humerus and forearm. Clinical course complicated with evolving left hemisphere CVA, agitation, and delirium. Given ongoing comorbidities, patient remains at high risk for further complications, deterioration and decline. . Code Status: Full Code Plan PLAN: Legal decision maker: Patient has a history of stroke with expressive aphasia , agitation and altered mental status during this hospitalization. Patient is not able to participate in her own medical decision making. Patient has an adult son Raul Bennett, whom according to [place] Statute will serve as patient`s Health Care Proxy. Goals: Aggressive CODE STATUS: Full Code SYMPTOMS: * Altered mental status:Multifactorial. History of bipolar disorder and CVA. Head CTA 10/27/17 revealed evolving CVA. Was on Haldol which was discontinued on . Patient is also on Valium 5mg BID.Patient on Seroquel 50mg BID. No recommendations. * Agitation: Multifactorial. History of bipolar disorder and CVA with expressive aphasia. Psychiatry consulted. On Seroquel 50mg BID. Zyprexa 10mg IM Q 12 hrs prn. Last dose 11/03/17 in a.m. Seems to be compounded with inability to communicate her needs. Patient calm during visit. No recommendations. * Physical deconditioning: Progressive. Patient has a history CVA with Residual Aphasia,Right Hemiplegia and Left Hemiparesis. During her admission in January 2017 patient weight 79.7kgs and on October 28, 2017 patient weighed 59.9kgs. Physical therapy consulted. Occupational therapy consulted and recommended OT at rehabilitation. Patient's participation is limited due to expressive aphasia, inability to comprehend complex commands, right hemiplegia and left hemiparesis. Speech therapy consulted, recommended speech therapy at rehabilitation. Occupational therapy and physical therapy following. Physical therapy following, patient not participating due to agitation. No recommendations at this time. Palliative care will continue to follow the patient during hospital course as condition evolves, to assist patient/decision-maker with understanding of their medical conditions, weighing benefits/burdens of treatment options, for clarification of goals of treatment. Additionally will assist with any symptoms of palliative concern Attestation To help prompt me to consider important information that might be impacting today's encounter and assessment, information from prior notes written by myself or my colleagues may have been "brought forward" into today's note. My signature on this note, however, is an attestation that I personally performed the exam, history, and/or decision-making noted today, and, unless otherwise indicated, the interactions with patient, family, and staff as well as the review of records all occurred today. I also attest that the listed assessment and stated plan reflect my best clinical judgment today based on the combination of historical information, prior notes, and today's exam/ interactions. When time spent is documented, it refers only to time spent today by the signer, or if indicated, combined time spent today by collaborating physician/nurse practitioner. Susan Dawson Nov 05, 2017 16:37
--- NOTE | 2017-11-05 17:43 | HHI.PR ---
Subjective Remarks Patient remains unresponsive. No seizure activity. She tested positive for C. difficile colitis. Objective Vital Signs Date Time Temp Pulse Resp B/P (MAP) Pulse Ox O2 Delivery O2 Flow Rate FiO2 11/05/17 16:00 90 11/05/17 16:00 96.8 84 16 137/63 (87) 98 11/05/17 12:00 93 11/05/17 12:00 96.7 95 16 130/60 (83) 97 11/05/17 08:34 100 21 11/05/17 08:00 101 11/05/17 08:00 98.2 95 14 101/61 (74) 98 11/05/17 04:00 98.4 104 17 162/70 (100) 97 11/05/17 04:00 104 11/05/17 00:41 97 21 11/05/17 00:00 98.0 101 16 126/60 (82) 97 11/05/17 00:00 101 11/04/17 20:34 21 11/04/17 20:00 89 11/04/17 20:00 99.2 93 20 148/66 (93) 98 11/04/17 19:00 98 Room Air I/O 11/04/17 11/04/17 11/04/17 11/05/17 11/05/17 11/05/17 07:00 15:00 23:00 07:00 15:00 23:00 Intake Total 340 ml 100 ml 100 ml 320 ml Balance 340 ml 100 ml 100 ml 320 ml Intake Oral 340 ml 320 ml IV Total 100 ml 100 ml # Voids 4 3 4 # Bowel Movements 1 2 1 Result Diagram: 11/04/17 1041 11/04/17 1041 Objective Remarks GENERAL: NAD, A&Ox0 HEAD: Normocephalic. NECK: Supple, trachea midline. No lymphadenopathy. EYES: No scleral icterus. No injection or drainage. CARDIOVASCULAR: Regular rate and rhythm without murmurs, gallops, or rubs. RESPIRATORY: Breath sounds equal bilaterally. No accessory muscle use. GASTROINTESTINAL: Abdomen soft, non-tender, nondistended. MUSCULOSKELETAL: No cyanosis, or edema. SKIN: Warm and dry. NEURO: Global neurological deficitis. A/P Problem List: (1) CVA (cerebral vascular accident) ICD Code: I63.9 - Cerebral infarction, unspecified (2) Physical deconditioning ICD Code: R53.81 - Other malaise (3) Encephalopathy ICD Code: G93.40 - Encephalopathy, unspecified (4) Altered mental status ICD Code: R41.82 - Altered mental status, unspecified Status: Acute Assessment and Plan 67-year-old female admitted secondary to extension of left hemisphere CVA Extension of left hemisphere CVA Continue supportive care Aspirin daily IV heparin Physical therapy Speech therapy Injury is extensive, long-term outcome are likely poor Seizure Continue Keppra Neurology following Hypertension Continue JAYLEN inhibitor Continue beta evonne Continue as needed Vasotec Agitation hx Bipolar DO Seroquel continued Cardiomyopathy Baseline EF is approximately 30% Continue beta evonne Continue JAYLEN inhibitor Fever Resolved DVT Prophylaxis Heparin Discharge Planning Patient will need to retirement facility at discharge Problem Qualifiers (1) Altered mental status: Qualified Codes: R41.82 - Altered mental status, unspecified Nikolas Heredia MD Nov 05, 2017 17:43
[2017-11-06] VITALS (11 sets, daily range): BP systolic 112–152; BP diastolic 58–88; PULSE 57–74; RESP 14–20; TEMP 95.9–98.2; O2SAT 96–100
[2017-11-06] MEDS: ACETAMINOPHEN/HYDROcodone 325 MG/10 MG TAB PO PRN ×2 (02:30→21:42)
[2017-11-06] MEDS: RESP: ALBUTEROL 0.63 MG/3 ML NEB (SCH) NEB ×4 (04:21→19:53)
[2017-11-06] MEDS: VANCOMYCIN 500 MG VIAL (FOR ORAL USE ONLY) PO SCH ×3 (05:21→17:20)
[2017-11-06 06:07] LABS: AUTOMATED NEUTROPHIL # 5.4 TH/MM3 (1.8-7.7); BASOPHIL % 0.4 % (0.0-2.0); EOSINOPHIL # 0.2 TH/MM3 (0-0.4); EOSINOPHIL % 2.6 % (0.0-4.0); HEMATOCRIT 31.5 % (35.0-46.0); HEMOGLOBIN 10.9 GM/DL (11.6-15.3); LYMPH % 18.9 % (9.0-44.0); LYMPHOCYTE # 1.5 TH/MM3 (1.0-4.8); MEAN CELL VOLUME 89.4 FL (80.0-100.0); MEAN CORPUSCULAR HGB CONC 34.7 % (32.0-36.0); MEAN PLATELET VOLUME 8.3 FL (7.0-11.0); MONOCYTE # 0.6 TH/MM3 (0-0.9); NEUT % 70.1 % (16.0-70.0); PLATELET COUNT 196 TH/MM3 (150-450); RED BLOOD COUNT 3.52 MIL/MM3 (4.00-5.30); RED CELL DISTRIBUTION WIDTH 15.2 % (11.6-17.2); WHITE BLOOD COUNT 7.7 TH/MM3 (4.0-11.0)
[2017-11-06 06:08] LABS: INTERNATIONAL NORMALIZED RATIO 2.4 RATIO; PROTHROMBIN TIME - PATIENT 24.2 SEC (9.8-11.6)
[2017-11-06 06:26] LABS: ALBUMIN 2.4 GM/DL (3.4-5.0); AST (GOT) 11 U/L (15-37); BICARBONATE 27.3 MEQ/L (21.0-32.0); BLOOD UREA NITROGEN 16 MG/DL (7-18); CALCIUM 8.3 MG/DL (8.5-10.1); CHLORIDE 113 MEQ/L (98-107); CREATININE 0.68 MG/DL (0.50-1.00); GLOMERULAR FILTRATION RATE 86 ML/MIN (>89); GLUCOSE,RANDOM 102 MG/DL (74-106); SODIUM (NA) 146 MEQ/L (136-145)
[2017-11-06 06:29] LABS: ALKALINE PHOSPHATASE 84 U/L (45-117); ALT (GPT) 17 U/L (10-53); TOTAL BILIRUBIN ADULT 0.3 MG/DL (0.2-1.0); TOTAL PROTEIN 5.9 GM/DL (6.4-8.2)
[2017-11-06] MEDS: ATORVASTATIN 10 MG TAB PO SCH (08:30)
[2017-11-06] MEDS: DIAZEPAM 5 MG TAB PO SCH ×2 (08:30→21:41)
[2017-11-06] MEDS: DOCUSATE SODIUM 50 MG/SENNA 8.6 MG TAB PO SCH ×2 (08:31→21:42)
[2017-11-06] MEDS: QUEtiapine FUMARATE 25 MG TAB PO SCH ×2 (08:31→12:09)
[2017-11-06] MEDS: LACTOBACILLUS ACIDOPHILUS TAB PO SCH ×3 (08:31→17:20)
[2017-11-06] MEDS: LISINOPRIL 5 MG TAB PO SCH (08:31)
[2017-11-06] MEDS: metroNIDAZOLE 500 MG INJ 100 ML IV SCH ×2 (08:32→17:20)
[2017-11-06] MEDS: levETIRAcetam 500 MG TAB PO SCH ×2 (08:32→21:42)
[2017-11-06] MEDS: SODIUM CHLORIDE 0.9% FLUSH 10 ML FLUSH IV FLUSH SCH ×2 (08:32→21:00)
[2017-11-06] MEDS: CARVEDILOL 3.125 MG TAB PO SCH ×2 (08:32→21:42)
[2017-11-06] MEDS ORDERED: POTASSIUM CHLORIDE 20 MEQ PWD PACKET PO ONE (09:00)
--- NOTE | 2017-11-06 11:50 | HHI.PR ---
Subjective Remarks Unresponsiveness today. No seizures overnight. No new complaints. Objective Vital Signs Date Time Temp Pulse Resp B/P (MAP) Pulse Ox O2 Delivery O2 Flow Rate FiO2 11/06/17 10:36 60 11/06/17 09:27 97 21 11/06/17 08:00 96.2 57 16 125/58 (80) 99 11/06/17 08:00 99 Room Air 11/06/17 04:23 96 21 11/06/17 04:00 68 11/06/17 04:00 98.2 68 20 144/68 (93) 98 11/06/17 00:00 97.8 72 20 112/88 (96) 99 11/06/17 00:00 72 11/05/17 20:55 97 21 11/05/17 20:00 75 11/05/17 20:00 98.1 75 20 105/53 (70) 99 11/05/17 19:00 97 Room Air 11/05/17 16:00 90 11/05/17 16:00 96.8 84 16 137/63 (87) 98 11/05/17 12:00 93 11/05/17 12:00 96.7 95 16 130/60 (83) 97 I/O 11/05/17 11/05/17 11/05/17 11/06/17 11/06/17 11/06/17 07:00 15:00 23:00 07:00 15:00 23:00 Intake Total 320 ml 600 ml 460 ml Balance 320 ml 600 ml 460 ml Intake Oral 320 ml 600 ml 360 ml IV Total 100 ml # Voids 4 3 4 # Bowel Movements 1 3 3 Result Diagram: 11/06/1752211/06/17 0523 Objective Remarks GENERAL: NAD, A&Ox1 HEAD: Normocephalic. NECK: Supple, trachea midline. No lymphadenopathy. EYES: No scleral icterus. No injection or drainage. CARDIOVASCULAR: Regular rate and rhythm without murmurs, gallops, or rubs. RESPIRATORY: Breath sounds equal bilaterally. No accessory muscle use. GASTROINTESTINAL: Abdomen soft, non-tender, nondistended. MUSCULOSKELETAL: No cyanosis, or edema. SKIN: Warm and dry. NEURO: Global neurological deficitis. A/P Problem List: (1) CVA (cerebral vascular accident) ICD Code: I63.9 - Cerebral infarction, unspecified (2) Physical deconditioning ICD Code: R53.81 - Other malaise (3) Encephalopathy ICD Code: G93.40 - Encephalopathy, unspecified (4) Altered mental status ICD Code: R41.82 - Altered mental status, unspecified Status: Acute Assessment and Plan 67-year-old female admitted secondary to extension of left hemisphere CVA. Wean off Cardizem. Continue to monitor on telemetry. Current heart rate is approximately 100 bpm. Extension of left hemisphere CVA Continue supportive care Aspirin daily IV heparin Physical therapy Speech therapy Injury is extensive, long-term outcome are likely poor Seizure Continue Keppra Neurology following Hypertension Continue JAYLEN inhibitor Continue beta evonne Continue as needed Vasotec Agitation hx Bipolar DO Seroquel continued Cardiomyopathy Baseline EF is approximately 30% Continue beta evonne Continue JAYLEN inhibitor Fever Resolved DVT Prophylaxis Heparin Discharge Planning Patient will need to prison facility at discharge Problem Qualifiers (1) Altered mental status: Qualified Codes: R41.82 - Altered mental status, unspecified Nikolas Heredia MD Nov 06, 2017 11:50
[2017-11-06] MEDS: NS + KCL 20 MEQ INJ 1,000 ML IV SCH (13:04)
--- NOTE | 2017-11-06 15:51 | HHI.HCPN ---
Reason for visit a. To assist with evaluation and management of symptoms including: Altered mental status, agitation, physical deconditioning b. To assist medical decision maker(s) with: better understanding of current medical conditions; weighing benefits/burdens of medical treatment options; making medical treatment decisions. Subjective/Interval History Patient seen and examined in her room on [facility]. Patient lethargic , awake and trying to communicate. Patient is calm. Has severe aphasia. Patient was able to say her name clearly today- Pam. When asked if she was in pain, she nodded her head and pointed to her right arm with her left hand. Patient flaccid on right side and spontaneously moves left side. Patient is afebrile, heart rate 50s, SBP 120s to 140s, O2 saturation high 90s on room air. Laboratory workup revealing WBC 7.7, hemoglobin 10.9, hematocrit 31.5, platelet count 196, sodium 146, potassium 3.4, BUN/creatinine 16/0.68, total protein 5.9, the mean 2.4. No recent imaging. Case discussed with bedside RN. Per bedside RN, patient has episodes when she is more alert and is able to eat and sometimes she is very lethargic and difficult to arouse. . Family/friend interactions No family at bedside . Advance Directives Living Will: Never completed Health Care Surrogate: Never completed Durable Power of Probation Worker: Never completed Advance Directive Specifics Health Care Surrogate(s): Health Care Proxy- Raul Mohamud- [phone] . Objective Vital Signs Date Time Temp Pulse Resp B/P (MAP) Pulse Ox O2 Delivery O2 Flow Rate FiO2 11/06/17 14:56 59 11/06/17 10:36 60 11/06/17 09:27 97 21 11/06/17 08:00 96.2 57 16 125/58 (80) 99 11/06/17 08:00 99 Room Air 11/06/17 04:23 96 21 11/06/17 04:00 68 11/06/17 04:00 98.2 68 20 144/68 (93) 98 11/06/17 00:00 97.8 72 20 112/88 (96) 99 11/06/17 00:00 72 11/05/17 20:55 97 21 11/05/17 20:00 75 11/05/17 20:00 98.1 75 20 105/53 (70) 99 11/05/17 19:00 97 Room Air 11/05/17 16:00 90 11/05/17 16:00 96.8 84 16 137/63 (87) 98 Intake & Output 11/06/17 11/06/17 07:00 19:00 Intake Total 460 ml Balance 460 ml Intake Oral 360 ml IV Total 100 ml # Voids 4 # Bowel Movements 3 Physical Exam CONSTITUTIONAL/GENERAL: This is an adequately nourished patient, in no apparent distress. TUBES/LINES/DRAINS: PIV SKIN: No jaundice, rashes, or lesions. Ecchymoses on upper extremities. No wounds seen anteriorly. Skin temperature appropriate. Not diaphoretic. HEAD: Atraumatic. Normocephalic. EYES: Pupils equal and round and reactive. Extraocular motions intact. No scleral icterus. No injection or drainage. Fundi not examined. ENT: Hearing grossly normal. Nose without bleeding or purulent drainage. Moist oral mucosa. NECK: Trachea midline. Supple, nontender. CARDIOVASCULAR: Regular rate and rhythm without murmurs, gallops, or rubs. No JVD. Peripheral pulses symmetric. RESPIRATORY/CHEST: Symmetric, unlabored respirations. Clear to auscultation. Breath sounds equal bilaterally. No wheezes, rales, or rhonchi. GASTROINTESTINAL: Abdomen soft, non-tender, nondistended. No guarding. Bowel sounds present. GENITOURINARY: Without palpable bladder distension. Medrano catheter in place. MUSCULOSKELETAL: Extremities without clubbing, cyanosis, or edema. No joint tenderness or effusion noted. No calf tenderness. No mottling or clubbing. NEUROLOGICAL:Patient lethargic , awake and trying to communicate. Flaccid to right side. Spontaneously Moves left upper and lower extremities. PSYCHIATRIC: Currently calm.No obvious anxiety/depression. no apparent hallucinations or other psychotic thought process. . Diagnostic Tests Laboratory Laboratory Tests Test 11/04/17 04:04 11/04/17 09:55 11/04/17 10:41 11/04/17 13:38 Prothrombin Time 30.7 SEC (9.8-11.6) Prothromb Time International Ratio 3.0 RATIO Activated Partial Thromboplast Time 49.2 SEC (24.3-30.1) Urine Color YELLOW (YELLW/STRAW) Urine Turbidity CLEAR (CLEAR) Urine pH 5.5 (5.0-8.5) Urine Specific [place] 1.019 (1.002-1.035) Urine Protein TRACE mg/dL (NEG-TRACE) Urine Glucose (UA) NEG mg/dL (NEG) Urine Ketones NEG mg/dL (NEG) Urine Occult Blood NEG (NEG) Urine Nitrite NEG (NEG) Urine Bilirubin NEG (NEG) Urine Urobilinogen LESS THAN 2.0 MG/DL (LESS Urine Leukocyte Esterase TRACE (NEG) Urine RBC LESS THAN 1 /hpf (0-3) Urine WBC 3 /hpf (0-5) Urine Squamous Epithelial Cells <1 /hpf (0-5) Microscopic Urinalysis Comment CULT NOT INDICATED White Blood Count 12.4 TH/MM3 (4.0-11.0) Red Blood Count 3.92 MIL/MM3 (4.00-5.30) Hemoglobin 12.3 GM/DL (11.6-15.3) Hematocrit 34.9 % (35.0-46.0) Mean Corpuscular Volume 89.0 FL (80.0-100.0) Mean Corpuscular Hemoglobin 31.5 PG (27.0-34.0) Mean Corpuscular Hemoglobin Concent 35.3 % (32.0-36.0) Red Cell Distribution Width 14.7 % (11.6-17.2) Platelet Count 238 TH/MM3 (150-450) Mean Platelet Volume 8.5 FL (7.0-11.0) Neutrophils (%) (Auto) 84.0 % (16.0-70.0) Lymphocytes (%) (Auto) 6.2 % (9.0-44.0) Monocytes (%) (Auto) 9.3 % (0.0-8.0) Eosinophils (%) (Auto) 0.3 % (0.0-4.0) Basophils (%) (Auto) 0.2 % (0.0-2.0) Neutrophils # (Auto) 10.4 TH/MM3 (1.8-7.7) Lymphocytes # (Auto) 0.8 TH/MM3 (1.0-4.8) Monocytes # (Auto) 1.2 TH/MM3 (0-0.9) Eosinophils # (Auto) 0.0 TH/MM3 (0-0.4) Basophils # (Auto) 0.0 TH/MM3 (0-0.2) CBC Comment AUTO DIFF Differential Total Cells Counted 100 Neutrophils % (Manual) 52 % (16-70) Band Neutrophils % 34 % (0-6) Lymphocytes % 3 % (9-44) Monocytes % 10 % (0-8) Eosinophils % 1 % (0-4) Neutrophils # (Manual) 10.7 TH/MM3 (1.8-7.7) Differential Comment FINAL DIFF MANUAL Platelet Estimate NORMAL (NORMAL) Platelet Morphology Comment NORMAL (NORMAL) Red Cell Morphology Comment NORMAL (NORMAL) Blood Urea Nitrogen 18 MG/DL (7-18) Creatinine 0.89 MG/DL (0.50-1.00) Random Glucose 121 MG/DL (74-106) Calcium Level 8.7 MG/DL (8.5-10.1) Magnesium Level 1.8 MG/DL (1.5-2.5) Sodium Level 140 MEQ/L (136-145) Potassium Level 3.8 MEQ/L (3.5-5.1) Chloride Level 106 MEQ/L (98-107) Carbon Dioxide Level 26.2 MEQ/L (21.0-32.0) Anion Gap 8 MEQ/L (5-15) Estimat Glomerular Filtration Rate 63 ML/MIN (>89) Lactic Acid Level 1.0 mmol/L (0.4-2.0) Stool C. difficile Toxin (PCR) POSITIVE (NEGATIVE) Stl C. difficile Toxin Epiderm 027 PRESUMPTIVE POSITIVE Test 11/05/17 09:50 11/06/17 05:23 Prothrombin Time 33.7 SEC (9.8-11.6) 24.2 SEC (9.8-11.6) Prothromb Time International Ratio 3.3 RATIO 2.4 RATIO White Blood Count 7.7 TH/MM3 (4.0-11.0) Red Blood Count 3.52 MIL/MM3 (4.00-5.30) Hemoglobin 10.9 GM/DL (11.6-15.3) Hematocrit 31.5 % (35.0-46.0) Mean Corpuscular Volume 89.4 FL (80.0-100.0) Mean Corpuscular Hemoglobin 31.0 PG (27.0-34.0) Mean Corpuscular Hemoglobin Concent 34.7 % (32.0-36.0) Red Cell Distribution Width 15.2 % (11.6-17.2) Platelet Count 196 TH/MM3 (150-450) Mean Platelet Volume 8.3 FL (7.0-11.0) Neutrophils (%) (Auto) 70.1 % (16.0-70.0) Lymphocytes (%) (Auto) 18.9 % (9.0-44.0) Monocytes (%) (Auto) 8.0 % (0.0-8.0) Eosinophils (%) (Auto) 2.6 % (0.0-4.0) Basophils (%) (Auto) 0.4 % (0.0-2.0) Neutrophils # (Auto) 5.4 TH/MM3 (1.8-7.7) Lymphocytes # (Auto) 1.5 TH/MM3 (1.0-4.8) Monocytes # (Auto) 0.6 TH/MM3 (0-0.9) Eosinophils # (Auto) 0.2 TH/MM3 (0-0.4) Basophils # (Auto) 0.0 TH/MM3 (0-0.2) CBC Comment DIFF FINAL Differential Comment Blood Urea Nitrogen 16 MG/DL (7-18) Creatinine 0.68 MG/DL (0.50-1.00) Random Glucose 102 MG/DL (74-106) Total Protein 5.9 GM/DL (6.4-8.2) Albumin 2.4 GM/DL (3.4-5.0) Calcium Level 8.3 MG/DL (8.5-10.1) Alkaline Phosphatase 84 U/L (45-117) Aspartate Amino Transf (AST/SGOT) 11 U/L (15-37) Alanine Aminotransferase (ALT/SGPT) 17 U/L (10-53) Total Bilirubin 0.3 MG/DL (0.2-1.0) Sodium Level 146 MEQ/L (136-145) Potassium Level 3.4 MEQ/L (3.5-5.1) Chloride Level 113 MEQ/L (98-107) Carbon Dioxide Level 27.3 MEQ/L (21.0-32.0) Anion Gap 6 MEQ/L (5-15) Estimat Glomerular Filtration Rate 86 ML/MIN (>89) Result Diagram: 11/06/17 0523 11/06/17 0523 Microbiology Microbiology Date/Time Source Procedure Growth Status 11/04/17 10:49 Blood Peripheral Aerobic Blood Culture - Preliminary NO GROWTH IN 2 DAYS Resulted 11/04/17 10:49 Blood Peripheral Anaerobic Blood Culture - Preliminary NO GROWTH IN 2 DAYS Resulted 11/04/17 10:41 Blood Peripheral Aerobic Blood Culture - Preliminary NO GROWTH IN 2 DAYS Resulted 11/04/17 10:41 Blood Peripheral Anaerobic Blood Culture - Preliminary NO GROWTH IN 2 DAYS Resulted Assessment and Plan Disease Oriented Problem List: (1) CVA (cerebral vascular accident) (2) HTN (hypertension) (3) Encephalopathy (4) Tobacco abuse Symptom Scale: (1) Altered mental status 0-10 Scale: Unable to quantify Comment: Multifactorial. History of bipolar disorder and CVA . (2) Physical deconditioning 0-10 Scale: Unable to quantify Comment: Progressive. . Pertinent Non-Medical Issues Psychosocial:Patient was born in [facility]. She is . Patient graduated from college and is a bachelor's degree in education. 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 Spiritual:Patient is Anabaptism Legal: Patient does not have advanced directives. Ethical issues impacting care: None identified at this time. . Important Contacts Son- Raul Bennett- [phone] Sister Harvey Fernandez [phone] Sister Michelle Raza [phone] . Prognosis Ms Rodríguez is a 67 years old female with a past medical history CVA with residual aphasia, right hemiplegia and left hemiparesis, hypertension, Diabetes Mellitus- Type 2, anxiety disorder, bipolar disorder, osteoarthritis and insomnia. Patient was admitted from 05/20/17-05/29/17 and treated for an acute left frontoparietal CVA .She was discharged to a SNF [facility]. Patient was transported by EMS to the ER on 10/25/17 with a complaint of altered mental status. Patient was found slumped over after she had wheeled herself outside to smoke, and ecchymosis to right humerus and forearm. Clinical course complicated with evolving left hemisphere CVA, agitation, and delirium. Given ongoing comorbidities, patient remains at high risk for further complications, deterioration and decline. . Code Status: Full Code Plan PLAN: Legal decision maker: Patient has a history of stroke with expressive aphasia , agitation and altered mental status during this hospitalization. Patient is not able to participate in her own medical decision making. Patient has an adult son Raul Bennett, whom according to [place] Statute will serve as patient`s Health Care Proxy. Goals: Aggressive CODE STATUS: Full Code SYMPTOMS: * Altered mental status:Multifactorial. History of bipolar disorder and CVA. Head CTA 10/27/17 revealed evolving CVA. Was on Haldol which was discontinued on . Patient is also on Valium 5mg BID.Patient on Seroquel 50mg BID. No recommendations. * Agitation: Multifactorial. History of bipolar disorder and CVA with expressive aphasia. Psychiatry consulted. On Seroquel 50mg BID. Zyprexa 10mg IM Q 12 hrs prn. Last dose 11/03/17 in a.m. Seems to be compounded with inability to communicate her needs. Patient calm during visit. No recommendations. * Physical deconditioning: Progressive. Patient has a history CVA with Residual Aphasia,Right Hemiplegia and Left Hemiparesis. During her admission in January 2017 patient weight 79.7kgs and on October 28, 2017 patient weighed 59.9kgs. Physical therapy consulted. Occupational therapy consulted and recommended OT at rehabilitation. Patient's participation is limited due to expressive aphasia, inability to comprehend complex commands, right hemiplegia and left hemiparesis. Speech therapy consulted, recommended speech therapy at rehabilitation. Occupational therapy and physical therapy following. Physical therapy following, patient not participating due to agitation. No recommendations at this time. Palliative care will continue to follow the patient during hospital course as condition evolves, to assist patient/decision-maker with understanding of their medical conditions, weighing benefits/burdens of treatment options, for clarification of goals of treatment. Additionally will assist with any symptoms of palliative concern Attestation To help prompt me to consider important information that might be impacting today's encounter and assessment, information from prior notes written by myself or my colleagues may have been "brought forward" into today's note. My signature on this note, however, is an attestation that I personally performed the exam, history, and/or decision-making noted today, and, unless otherwise indicated, the interactions with patient, family, and staff as well as the review of records all occurred today. I also attest that the listed assessment and stated plan reflect my best clinical judgment today based on the combination of historical information, prior notes, and today's exam/ interactions. When time spent is documented, it refers only to time spent today by the signer, or if indicated, combined time spent today by collaborating physician/nurse practitioner. Susan Dawson Nov 06, 2017 15:51
[2017-11-06] MEDS: WARFARIN SOD 2.5 MG TAB PO SCH (17:20)
[2017-11-06] MEDS: MORPHINE SULFATE 2 MG/ML INJ IV PRN (17:48)
[2017-11-07] VITALS (8 sets, daily range): BP systolic 120–188; BP diastolic 60–93; PULSE 57–91; RESP 17–20; TEMP 97.3–98.8; O2SAT 94–100
[2017-11-07] MEDS: VANCOMYCIN 500 MG VIAL (FOR ORAL USE ONLY) PO SCH ×4 (01:31→17:41)
[2017-11-07] MEDS: metroNIDAZOLE 500 MG INJ 100 ML IV SCH ×3 (01:31→17:38)
[2017-11-07] MEDS: RESP: ALBUTEROL 0.63 MG/3 ML NEB (SCH) NEB ×5 (05:05→21:23)
[2017-11-07 07:41] LABS: INTERNATIONAL NORMALIZED RATIO 2.5 RATIO; PROTHROMBIN TIME - PATIENT 24.8 SEC (9.8-11.6)
[2017-11-07 07:59] LABS: ALBUMIN 2.6 GM/DL (3.4-5.0); AST (GOT) 10 U/L (15-37); BICARBONATE 27.9 MEQ/L (21.0-32.0); BLOOD UREA NITROGEN 10 MG/DL (7-18); CALCIUM 8.6 MG/DL (8.5-10.1); CHLORIDE 111 MEQ/L (98-107); CREATININE 0.63 MG/DL (0.50-1.00); GLOMERULAR FILTRATION RATE 94 ML/MIN (>89); GLUCOSE,RANDOM 78 MG/DL (74-106); SODIUM (NA) 144 MEQ/L (136-145)
[2017-11-07 08:04] LABS: ALKALINE PHOSPHATASE 85 U/L (45-117); ALT (GPT) 15 U/L (10-53); TOTAL BILIRUBIN ADULT 0.3 MG/DL (0.2-1.0); TOTAL PROTEIN 6.1 GM/DL (6.4-8.2)
[2017-11-07 08:26] LABS: AUTOMATED NEUTROPHIL # 4.3 TH/MM3 (1.8-7.7); BASOPHIL % 0.3 % (0.0-2.0); EOSINOPHIL # 0.2 TH/MM3 (0-0.4); EOSINOPHIL % 3.8 % (0.0-4.0); HEMATOCRIT 33.9 % (35.0-46.0); HEMOGLOBIN 11.5 GM/DL (11.6-15.3); LYMPHOCYTE # 1.5 TH/MM3 (1.0-4.8); MEAN CELL VOLUME 90.1 FL (80.0-100.0); MEAN CORPUSCULAR HEMOGLOBIN 30.7 PG (27.0-34.0); MEAN CORPUSCULAR HGB CONC 34.1 % (32.0-36.0); MEAN PLATELET VOLUME 8.7 FL (7.0-11.0); MONO % 6.5 % (0.0-8.0); MONOCYTE # 0.4 TH/MM3 (0-0.9); NEUT % 66.4 % (16.0-70.0); PLATELET COUNT 234 TH/MM3 (150-450); RED BLOOD COUNT 3.76 MIL/MM3 (4.00-5.30); RED CELL DISTRIBUTION WIDTH 14.8 % (11.6-17.2); WHITE BLOOD COUNT 6.4 TH/MM3 (4.0-11.0)
[2017-11-07] MEDS: DOCUSATE SODIUM 50 MG/SENNA 8.6 MG TAB PO SCH ×2 (09:00→22:04)
[2017-11-07] MEDS: SODIUM CHLORIDE 0.9% FLUSH 10 ML FLUSH IV FLUSH SCH ×2 (09:00→22:04)
[2017-11-07] MEDS: DIAZEPAM 5 MG TAB PO SCH ×2 (09:19→22:05)
[2017-11-07] MEDS: LACTOBACILLUS ACIDOPHILUS TAB PO SCH ×3 (09:19→17:40)
[2017-11-07] MEDS: QUEtiapine FUMARATE 25 MG TAB PO SCH ×2 (09:19→14:01)
[2017-11-07] MEDS: levETIRAcetam 500 MG TAB PO SCH ×2 (09:20→22:05)
[2017-11-07] MEDS: ACETAMINOPHEN/HYDROcodone 325 MG/10 MG TAB PO PRN ×2 (09:21→22:05)
[2017-11-07] MEDS: LISINOPRIL 5 MG TAB PO SCH (09:21)
[2017-11-07] MEDS: ATORVASTATIN 10 MG TAB PO SCH (09:22)
[2017-11-07] MEDS: CARVEDILOL 3.125 MG TAB PO SCH ×2 (09:22→22:05)
[2017-11-07] MEDS ORDERED: PHARMACY ORDERED LAB ONE (11:45)
--- NOTE | 2017-11-07 14:02 | HHI.HCPN ---
Reason for visit a. To assist with evaluation and management of symptoms including: Altered mental status, agitation, physical deconditioning b. To assist medical decision maker(s) with: better understanding of current medical conditions; weighing benefits/burdens of medical treatment options; making medical treatment decisions. Subjective/Interval History Patient seen and examined in the room on [address]. Patient is awake and physical therapy working with her. Patient is calm during visit. Patient complaining of right upper extremity pain. Recommended putting on sling to RUE during the physical therapy sessions. Patient is more conversant today, though it is very difficult to understand what she is trying to say. Severe expressive aphasia. Nodes head to "yes" for pain. Patient sparingly using prn Hydrocodone - she has used x3 doses in the past 24 hours. Patient follows commands with LUE and LLE. Flaccid on RUE and RLE. Patient moans to the slightest movement of her right arm. Patient has her lunch tray and is trying to feed herself with the left hand. Patient is consuming 10-25% of her meals. Patient may benefit from assistance with feeding. Vital signs stable though she has some episodes of high SBP 170s-180s. No labwork and imaging today. Occupational therapy, physical therapy following. ID following. . Family/friend interactions No family at bedside. . Advance Directives Living Will: Never completed Health Care Surrogate: Never completed Durable Power of Clinical Transformation Specialist: Never completed Advance Directive Specifics Health Care Surrogate(s): Health Care Proxy- Raul Mohamud- [phone] . Objective Vital Signs Date Time Temp Pulse Resp B/P (MAP) Pulse Ox O2 Delivery O2 Flow Rate FiO2 11/07/17 12:04 97.5 65 20 120/60 (80) 98 11/07/17 10:23 94 11/07/17 08:00 97.3 91 18 188/86 (120) 98 11/07/17 05:38 98.7 70 17 170/72 (104) 95 11/07/17 00:25 98.3 57 18 137/63 (87) 96 11/06/17 20:00 72 11/06/17 20:00 97.8 70 14 152/65 (94) 100 11/06/17 19:53 98 21 11/06/17 16:00 100 Room Air 11/06/17 16:00 96.7 74 16 125/74 (91) 100 11/06/17 14:56 59 Intake & Output 11/07/17 11/07/17 07:00 19:00 Intake Total 1106 ml Balance 1106 ml Intake Oral 360 ml IV Total 746 ml # Voids 4 Physical Exam CONSTITUTIONAL/GENERAL: This is an adequately nourished patient, in no apparent distress. TUBES/LINES/DRAINS: PIV SKIN: No jaundice, rashes, or lesions. Ecchymoses on upper extremities. No wounds seen anteriorly. Skin temperature appropriate. Not diaphoretic. HEAD: Atraumatic. Normocephalic. EYES: Pupils equal and round and reactive. Extraocular motions intact. No scleral icterus. No injection or drainage. Fundi not examined. ENT: Hearing grossly normal. Nose without bleeding or purulent drainage. Moist oral mucosa. NECK: Trachea midline. Supple, nontender. CARDIOVASCULAR: Regular rate and rhythm without murmurs, gallops, or rubs. No JVD. Peripheral pulses symmetric. RESPIRATORY/CHEST: Symmetric, unlabored respirations. Clear to auscultation. Breath sounds equal bilaterally. No wheezes, rales, or rhonchi. GASTROINTESTINAL: Abdomen soft, non-tender, nondistended. No guarding. Bowel sounds present. GENITOURINARY: Without palpable bladder distension. MUSCULOSKELETAL: Extremities without clubbing, cyanosis, or edema. No joint tenderness or effusion noted. No calf tenderness. No mottling or clubbing. NEUROLOGICAL:Patient alert, awake and trying to communicate. Flaccid to right side. Follows commands and spontaneously Moves left upper and lower extremities. PSYCHIATRIC: Currently calm.No obvious anxiety/depression. no apparent hallucinations or other psychotic thought process. . Diagnostic Tests Laboratory Laboratory Tests Test 11/05/17 09:50 11/06/17 05:23 11/07/17 06:30 Prothrombin Time 33.7 SEC (9.8-11.6) 24.2 SEC (9.8-11.6) 24.8 SEC (9.8-11.6) Prothromb Time International Ratio 3.3 RATIO 2.4 RATIO 2.5 RATIO White Blood Count 7.7 TH/MM3 (4.0-11.0) 6.4 TH/MM3 (4.0-11.0) Red Blood Count 3.52 MIL/MM3 (4.00-5.30) 3.76 MIL/MM3 (4.00-5.30) Hemoglobin 10.9 GM/DL (11.6-15.3) 11.5 GM/DL (11.6-15.3) Hematocrit 31.5 % (35.0-46.0) 33.9 % (35.0-46.0) Mean Corpuscular Volume 89.4 FL (80.0-100.0) 90.1 FL (80.0-100.0) Mean Corpuscular Hemoglobin 31.0 PG (27.0-34.0) 30.7 PG (27.0-34.0) Mean Corpuscular Hemoglobin Concent 34.7 % (32.0-36.0) 34.1 % (32.0-36.0) Red Cell Distribution Width 15.2 % (11.6-17.2) 14.8 % (11.6-17.2) Platelet Count 196 TH/MM3 (150-450) 234 TH/MM3 (150-450) Mean Platelet Volume 8.3 FL (7.0-11.0) 8.7 FL (7.0-11.0) Neutrophils (%) (Auto) 70.1 % (16.0-70.0) 66.4 % (16.0-70.0) Lymphocytes (%) (Auto) 18.9 % (9.0-44.0) 23.0 % (9.0-44.0) Monocytes (%) (Auto) 8.0 % (0.0-8.0) 6.5 % (0.0-8.0) Eosinophils (%) (Auto) 2.6 % (0.0-4.0) 3.8 % (0.0-4.0) Basophils (%) (Auto) 0.4 % (0.0-2.0) 0.3 % (0.0-2.0) Neutrophils # (Auto) 5.4 TH/MM3 (1.8-7.7) 4.3 TH/MM3 (1.8-7.7) Lymphocytes # (Auto) 1.5 TH/MM3 (1.0-4.8) 1.5 TH/MM3 (1.0-4.8) Monocytes # (Auto) 0.6 TH/MM3 (0-0.9) 0.4 TH/MM3 (0-0.9) Eosinophils # (Auto) 0.2 TH/MM3 (0-0.4) 0.2 TH/MM3 (0-0.4) Basophils # (Auto) 0.0 TH/MM3 (0-0.2) 0.0 TH/MM3 (0-0.2) CBC Comment DIFF FINAL DIFF FINAL Differential Comment Blood Urea Nitrogen 16 MG/DL (7-18) 10 MG/DL (7-18) Creatinine 0.68 MG/DL (0.50-1.00) 0.63 MG/DL (0.50-1.00) Random Glucose 102 MG/DL (74-106) 78 MG/DL (74-106) Total Protein 5.9 GM/DL (6.4-8.2) 6.1 GM/DL (6.4-8.2) Albumin 2.4 GM/DL (3.4-5.0) 2.6 GM/DL (3.4-5.0) Calcium Level 8.3 MG/DL (8.5-10.1) 8.6 MG/DL (8.5-10.1) Alkaline Phosphatase 84 U/L (45-117) 85 U/L (45-117) Aspartate Amino Transf (AST/SGOT) 11 U/L (15-37) 10 U/L (15-37) Alanine Aminotransferase (ALT/SGPT) 17 U/L (10-53) 15 U/L (10-53) Total Bilirubin 0.3 MG/DL (0.2-1.0) 0.3 MG/DL (0.2-1.0) Sodium Level 146 MEQ/L (136-145) 144 MEQ/L (136-145) Potassium Level 3.4 MEQ/L (3.5-5.1) 3.3 MEQ/L (3.5-5.1) Chloride Level 113 MEQ/L (98-107) 111 MEQ/L (98-107) Carbon Dioxide Level 27.3 MEQ/L (21.0-32.0) 27.9 MEQ/L (21.0-32.0) Anion Gap 6 MEQ/L (5-15) 5 MEQ/L (5-15) Estimat Glomerular Filtration Rate 86 ML/MIN (>89) 94 ML/MIN (>89) Result Diagram: 11/07/17 0630 11/07/17 0630 Assessment and Plan Disease Oriented Problem List: (1) CVA (cerebral vascular accident) (2) HTN (hypertension) (3) Encephalopathy (4) Tobacco abuse Symptom Scale: (1) Altered mental status 0-10 Scale: Unable to quantify Comment: Multifactorial. History of bipolar disorder and CVA . (2) Physical deconditioning 0-10 Scale: Unable to quantify Comment: Progressive. . Pertinent Non-Medical Issues Psychosocial:Patient was born in [facility]. She is . Patient graduated from college and is a bachelor's degree in education. 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 Spiritual:Patient is Worship Legal: Patient does not have advanced directives. Ethical issues impacting care: None identified at this time. . Important Contacts Son- Raul Bennett- [phone] Sister Harvey Fernandez [phone] Sister Michelle Raza [phone] . Prognosis Ms Rodríguez is a 67 years old female with a past medical history CVA with residual aphasia, right hemiplegia and left hemiparesis, hypertension, Diabetes Mellitus- Type 2, anxiety disorder, bipolar disorder, osteoarthritis and insomnia. Patient was admitted from 05/20/17-05/29/17 and treated for an acute left frontoparietal CVA .She was discharged to a SNF [facility]. Patient was transported by EMS to the ER on 10/25/17 with a complaint of altered mental status. Patient was found slumped over after she had wheeled herself outside to smoke, and ecchymosis to right humerus and forearm. Clinical course complicated with evolving left hemisphere CVA, agitation, and delirium. Given ongoing comorbidities, patient remains at high risk for further complications, deterioration and decline. . Code Status: Full Code Plan PLAN: Legal decision maker: Patient has a history of stroke with expressive aphasia , agitation and altered mental status during this hospitalization. Patient is not able to participate in her own medical decision making. Patient has an adult son Raul Bennett, whom according to [place] Statute will serve as patient`s Health Care Proxy. Goals: Aggressive- No changes in goals. CODE STATUS: Full Code SYMPTOMS: * Altered mental status:Multifactorial. History of bipolar disorder and CVA. Head CTA 10/27/17 revealed evolving CVA. Was on Haldol which was discontinued on . Patient is also on Valium 5mg BID.Patient on Seroquel 50mg BID. No recommendations. * Agitation: Multifactorial. History of bipolar disorder and CVA with expressive aphasia. Psychiatry consulted. On Seroquel 50mg BID. Zyprexa 10mg IM Q 12 hrs prn. Last dose 11/03/17 in a.m. Seems to be compounded with inability to communicate her needs. Patient calm during visit. No recommendations. * Physical deconditioning: Progressive. Patient has a history CVA with Residual Aphasia,Right Hemiplegia and Left Hemiparesis. During her admission in January 2017 patient weight 79.7kgs and on October 28, 2017 patient weighed 59.9kgs. Physical therapy consulted. Occupational therapy consulted and recommended OT at rehabilitation. Patient's participation is limited due to expressive aphasia, inability to comprehend complex commands, right hemiplegia and left hemiparesis. Speech therapy consulted, recommended speech therapy at rehabilitation. Occupational therapy and physical therapy following. Physical therapy following, patient not participating due to agitation. No recommendations at this time. Palliative care will continue to follow the patient during hospital course as condition evolves, to assist patient/decision-maker with understanding of their medical conditions, weighing benefits/burdens of treatment options, for clarification of goals of treatment. Additionally will assist with any symptoms of palliative concern Attestation To help prompt me to consider important information that might be impacting today's encounter and assessment, information from prior notes written by myself or my colleagues may have been "brought forward" into today's note. My signature on this note, however, is an attestation that I personally performed the exam, history, and/or decision-making noted today, and, unless otherwise indicated, the interactions with patient, family, and staff as well as the review of records all occurred today. I also attest that the listed assessment and stated plan reflect my best clinical judgment today based on the combination of historical information, prior notes, and today's exam/ interactions. When time spent is documented, it refers only to time spent today by the signer, or if indicated, combined time spent today by collaborating physician/nurse practitioner. Susan Dawson Nov 07, 2017 14:02
[2017-11-07] MEDS: NS + KCL 20 MEQ INJ 1,000 ML IV SCH (15:08)
[2017-11-07] MEDS: WARFARIN SOD 2.5 MG TAB PO SCH (16:00)
--- NOTE | 2017-11-07 16:40 | HHI.PR ---
Subjective Remarks Patient seen earlier this morning. She has significant expressive aphasia but able to follow commands. Discussed with RN. No new issues. Objective Vitals Vital Signs Date Time Temp Pulse Resp B/P (MAP) Pulse Ox O2 Delivery O2 Flow Rate FiO2 11/07/17 15:55 97.6 67 20 131/60 (83) 100 11/07/17 12:04 97.5 65 20 120/60 (80) 98 11/07/17 10:23 94 11/07/17 08:00 97.3 91 18 188/86 (120) 98 11/07/17 05:38 98.7 70 17 170/72 (104) 95 11/07/17 00:25 98.3 57 18 137/63 (87) 96 11/06/17 20:00 72 11/06/17 20:00 97.8 70 14 152/65 (94) 100 11/06/17 19:53 98 21 I/O 11/06/17 11/06/17 11/06/17 11/07/17 11/07/17 11/07/17 07:00 15:00 23:00 07:00 15:00 23:00 Intake Total 460 ml 1030 ml 556 ml 600 ml 990 ml Balance 460 ml 1030 ml 556 ml 600 ml 990 ml Intake Oral 360 ml 720 ml 120 ml 600 ml IV Total 100 ml 310 ml 436 ml 990 ml # Voids 4 4 2 1 # Bowel Movements 3 0 Result Diagram: 11/07/17 0630 11/07/17 0630 Objective Remarks GENERAL: This is a well-nourished, well-developed patient, in no apparent distress. CARDIOVASCULAR: Normal rate and regular rhythm without murmurs, gallops, or rubs. RESPIRATORY: Good respiratory efforts. Breath sounds equal and clear to auscultation bilaterally. GASTROINTESTINAL: Abdomen soft, non-tender, non-distended. Normal active bowel sounds MUSCULOSKELETAL: Extremities without cyanosis, or edema. NEURO: Alert and follow commands. Right sided paralysis. Left upper and lower extremities normal strength. PSYCH: Calm. Procedures none A/P Problem List: (1) Encephalopathy ICD Code: G93.40 - Encephalopathy, unspecified (2) CVA (cerebral vascular accident) ICD Code: I63.9 - Cerebral infarction, unspecified (3) HTN (hypertension) ICD Code: I10 - Essential (primary) hypertension (4) Tobacco abuse ICD Code: Z72.0 - Tobacco use Assessment and Plan 67-year-old female admitted secondary to extension of left hemisphere CVA. Extension of left hemisphere CVA Neurology following. Continue supportive care Status post IV heparin and transitioned to Coumadin. INR therapeutic. Physical therapy Speech therapy Injury is extensive, long-term outcome are likely poor for significant recovery Seizure Continue Keppra Neurology following Hypertension Continue JAYLEN inhibitor Continue beta evonne Continue as needed Vasotec C. difficile colitis: Hypervirulent strain - Appreciate ID following. Patient is on v oral ancomycin and Flagyl. Agitation hx Bipolar DO Seroquel continued Cardiomyopathy Baseline EF is approximately 30% Continue beta evonne Continue JAYLEN inhibitor DVT Prophylaxis Heparin Discharge Planning DC planning to SNF. Case management following Abram Hill MD Nov 07, 2017 16:40
--- NOTE | 2017-11-07 17:43 | HHI.IDPN ---
Subjective Subjective Remarks diarrhea resolved no fever Antibiotics vanco po flagyl iv Allergies: Coded Allergies: No Known Allergies (Verified Allergy, Unknown, 10/25/17) Objective . Vital Signs Date Time Temp Pulse Resp B/P (MAP) Pulse Ox O2 Delivery O2 Flow Rate FiO2 11/07/17 16:58 75 11/07/17 15:55 97.6 67 20 131/60 (83) 100 11/07/17 12:04 97.5 65 20 120/60 (80) 98 11/07/17 10:23 94 11/07/17 08:00 97.3 91 18 188/86 (120) 98 11/07/17 05:38 98.7 70 17 170/72 (104) 95 11/07/17 00:25 98.3 57 18 137/63 (87) 96 11/06/17 20:00 72 11/06/17 20:00 97.8 70 14 152/65 (94) 100 11/06/17 19:53 98 21 11/07/17 11/07/17 11/08/17 15:00 23:00 07:00 Intake Total 600 ml 990 ml Balance 600 ml 990 ml Intake Oral 600 ml IV Total 990 ml # Voids 1 # Bowel Movements 0 . Laboratory Tests Test 11/06/17 05:23 11/07/17 06:30 White Blood Count 7.7 TH/MM3 6.4 TH/MM3 Red Blood Count 3.52 MIL/MM3 3.76 MIL/MM3 Hemoglobin 10.9 GM/DL 11.5 GM/DL Hematocrit 31.5 % 33.9 % Mean Corpuscular Volume 89.4 FL 90.1 FL Mean Corpuscular Hemoglobin 31.0 PG 30.7 PG Mean Corpuscular Hemoglobin Concent 34.7 % 34.1 % Red Cell Distribution Width 15.2 % 14.8 % Platelet Count 196 TH/MM3 234 TH/MM3 Mean Platelet Volume 8.3 FL 8.7 FL Neutrophils (%) (Auto) 70.1 % 66.4 % Lymphocytes (%) (Auto) 18.9 % 23.0 % Monocytes (%) (Auto) 8.0 % 6.5 % Eosinophils (%) (Auto) 2.6 % 3.8 % Basophils (%) (Auto) 0.4 % 0.3 % Neutrophils # (Auto) 5.4 TH/MM3 4.3 TH/MM3 Lymphocytes # (Auto) 1.5 TH/MM3 1.5 TH/MM3 Monocytes # (Auto) 0.6 TH/MM3 0.4 TH/MM3 Eosinophils # (Auto) 0.2 TH/MM3 0.2 TH/MM3 Basophils # (Auto) 0.0 TH/MM3 0.0 TH/MM3 CBC Comment DIFF FINAL DIFF FINAL Differential Comment Laboratory Tests Test 11/06/17 05:23 11/07/17 06:30 Blood Urea Nitrogen 16 MG/DL 10 MG/DL Creatinine 0.68 MG/DL 0.63 MG/DL Random Glucose 102 MG/DL 78 MG/DL Total Protein 5.9 GM/DL 6.1 GM/DL Albumin 2.4 GM/DL 2.6 GM/DL Calcium Level 8.3 MG/DL 8.6 MG/DL Alkaline Phosphatase 84 U/L 85 U/L Aspartate Amino Transf (AST/SGOT) 11 U/L 10 U/L Alanine Aminotransferase (ALT/SGPT) 17 U/L 15 U/L Total Bilirubin 0.3 MG/DL 0.3 MG/DL Sodium Level 146 MEQ/L 144 MEQ/L Potassium Level 3.4 MEQ/L 3.3 MEQ/L Chloride Level 113 MEQ/L 111 MEQ/L Carbon Dioxide Level 27.3 MEQ/L 27.9 MEQ/L Anion Gap 6 MEQ/L 5 MEQ/L Estimat Glomerular Filtration Rate 86 ML/MIN 94 ML/MIN Imaging Last Impressions Chest X-Ray 11/04/17 0000 Signed Impressions: Service Date/Time: Saturday, November 04, 2017 09:26 - CONCLUSION: No acute cardiopulmonary findings identified. Known fracture of the proximal right humerus. Nikolas Stewart MD Neck CTA 10/27/17 0000 Signed Impressions: Service Date/Time: Friday, October 27, 2017 17:42 - CONCLUSION: 1. Occluded left internal carotid artery 2. Mild narrowing at the origin of the right internal carotid artery measuring 30%%. 3. Patent vertebral arteries with good flow. Price Cee MD Head CTA 10/27/17 0000 Signed Impressions: Service Date/Time: Friday, October 27, 2017 17:42 - CONCLUSION: 1. Occluded intracranial segment of the left internal carotid artery. 2. Very scant flow in the left middle cerebral artery distribution with proximal MCA occlusion. 3. Evolving large left MCA infarct. Price Cee MD Head CT 10/27/17 0000 Signed Impressions: Service Date/Time: Friday, October 27, 2017 17:34 - CONCLUSION: 1. No evidence of acute right-sided infarction. Cystic encephalomalacia involving the left middle cerebral artery distribution unchanged 2. Pansinusitis Soren Rose MD Carotid Artery Ultrasound 10/27/17 0000 Signed Impressions: Service Date/Time: Friday, October 27, 2017 16:16 - CONCLUSION: 1. Findings of left carotid occlusion. CT angiography of the carotid arteries the brain is recommended for further evaluation Soren Rose MD Brain MRI 10/26/17 0000 Signed Impressions: Service Date/Time: Thursday, October 26, 2017 16:34 - CONCLUSION: Cystic encephalomalacia involving large left middle cerebral artery ischemic infarction. There is a small focus of restricted diffusion in the posterior left frontal region without hemorrhage characteristic of extension of the infarct. Pansinusitis Soren Rose MD Radius/Ulna X-Ray 10/25/17 0000 Signed Impressions: Service Date/Time: Wednesday, October 25, 2017 20:03 - CONCLUSION: 1. No acute fracture or dislocation. No bony destructive changes. Carlton Early MD Humerus X-Ray 10/25/17 0000 Signed Impressions: Service Date/Time: Wednesday, October 25, 2017 20:09 - CONCLUSION: 1. Subacute right humeral neck fracture with Callus formation. No significant change in displacement compared with September 30. Carlton Early MD Physical Exam CONSTITUTIONAL/GENERAL: This is an adequately nourished patient, in no apparent distress. TUBES/LINES/DRAINS: SKIN: No jaundice, rashes, or lesions. Ecchymoses on upper extremities. No wounds seen anteriorly. Skin temperature appropriate. Not diaphoretic. CARDIOVASCULAR: Regular rate and rhythm without murmurs, gallops, or rubs. No JVD. Peripheral pulses symmetric. RESPIRATORY/CHEST: Symmetric, unlabored respirations. Clear to auscultation. Breath sounds equal bilaterally. No wheezes, rales, or rhonchi. GASTROINTESTINAL: Abdomen soft, no reaction to palpation, mildly distended. No hepato-splenomegaly, or palpable masses. No guarding. Bowel sounds present. GENITOURINARY: Without palpable bladder distension. MUSCULOSKELETAL: Extremities without clubbing, cyanosis, or edema. No joint tenderness or effusion noted. No calf tenderness. No mottling or clubbing. NEUROLOGICAL: awake alert Aphasic. Receptive and expressive R hemiplegia PSYCHIATRIC: calm and cooperative Assessment & Plan Remarks Recurrent CVA C.diff, hypervirulent 027 strain - improved clincially dc IV flagyl po vancomycin x 14 days avoid systemic abx Hodan Tellez MD Nov 07, 2017 17:43
[2017-11-08] VITALS (9 sets, daily range): BP systolic 126–180; BP diastolic 63–94; PULSE 66–95; RESP 18–20; TEMP 97.4–98.8; O2SAT 98–100
[2017-11-08] MEDS: VANCOMYCIN 500 MG VIAL (FOR ORAL USE ONLY) PO SCH ×4 (01:31→17:07)
[2017-11-08] MEDS: RESP: ALBUTEROL 0.63 MG/3 ML NEB (SCH) NEB ×2 (03:56→08:01)
[2017-11-08] MEDS: ACETAMINOPHEN/HYDROcodone 325 MG/10 MG TAB PO PRN ×2 (06:16→21:31)
[2017-11-08] MEDS: ATORVASTATIN 10 MG TAB PO SCH (09:00)
[2017-11-08] MEDS: LACTOBACILLUS ACIDOPHILUS TAB PO SCH ×3 (09:00→17:06)
[2017-11-08] MEDS: SODIUM CHLORIDE 0.9% FLUSH 10 ML FLUSH IV FLUSH SCH ×2 (09:40→21:30)
[2017-11-08] MEDS: levETIRAcetam 500 MG TAB PO SCH ×2 (09:43→21:30)
[2017-11-08] MEDS: DOCUSATE SODIUM 50 MG/SENNA 8.6 MG TAB PO SCH ×2 (09:45→21:30)
[2017-11-08] MEDS: DIAZEPAM 5 MG TAB PO SCH ×2 (09:45→21:30)
[2017-11-08] MEDS: QUEtiapine FUMARATE 25 MG TAB PO SCH ×2 (09:45→13:35)
[2017-11-08] MEDS: CARVEDILOL 3.125 MG TAB PO SCH ×2 (09:46→21:30)
[2017-11-08] MEDS ORDERED: CARV3.125 PO (11:48)
[2017-11-08] MEDS ORDERED: LEVE500 PO (11:48)
[2017-11-08] MEDS ORDERED: DIAZ5 PO (11:48)
[2017-11-08] MEDS ORDERED: SERO25TA PO (11:48)
[2017-11-08] MEDS ORDERED: LISI-519 PO (11:48)
[2017-11-08] MEDS ORDERED: HYDR-3516 PO (11:48)
[2017-11-08] MEDS ORDERED: COUM2.5T PO (11:48)
--- NOTE | 2017-11-08 11:49 | HHI.DS ---
Discharge Summary Admission Date Oct 27, 2017 at 13:11 Discharge Date: Nov 08, 2017 Admitting Diagnosis Possible seizure, possible TIA (1) Encephalopathy ICD Code: G93.40 - Encephalopathy, unspecified (2) CVA (cerebral vascular accident) ICD Code: I63.9 - Cerebral infarction, unspecified (3) HTN (hypertension) ICD Code: I10 - Essential (primary) hypertension (4) Tobacco abuse ICD Code: Z72.0 - Tobacco use Procedures none Brief History - From Admission History of present illness from the admitting physician This is a 67-year-old female w/ a PMH of CVA w/ Residual Aphasia, Right Hemiplegia and Left Hemiparesis, HTN, DM, Bipolar Disorder and Tobacco Abuse who was sent to the ER from [facility] secondary to acute AMS. Per report, pt wheeled herself outside to smoke and was found slumped over in her wheelchair. Pt unable to provide history due to aphasia and previous CVA. No reported seizure like activity at that time. Upon arrival to ER, pt's Sister reports pt back to baseline mental status. BP 194/90, HR 78, O2 sat 98% on RA, Afebrile. CBC unremarkable. Chemistry essentially unremarkable. Troponin negative. INR 1.1. UA pending. CXR with no acute findings. CT Head was stable remote left MCA infarct. Pt was to be d/c'd back to Rehab, however had episode of "seizure" while in ER, witnessed only by pt's Sister. Sister reports pt was "staring off into space" for several minutes. No h/o seizure in the past. CBC/BMP: 11/07/17 0630 11/07/17 0630 Significant Findings Laboratory Tests Test 11/06/17 05:23 11/07/17 06:30 11/08/17 07:55 Red Blood Count 3.52 MIL/MM3 (4.00-5.30) 3.76 MIL/MM3 (4.00-5.30) Hemoglobin 10.9 GM/DL (11.6-15.3) 11.5 GM/DL (11.6-15.3) Hematocrit 31.5 % (35.0-46.0) 33.9 % (35.0-46.0) Neutrophils (%) (Auto) 70.1 % (16.0-70.0) Prothrombin Time 24.2 SEC (9.8-11.6) 24.8 SEC (9.8-11.6) 20.0 SEC (9.8-11.6) Total Protein 5.9 GM/DL (6.4-8.2) 6.1 GM/DL (6.4-8.2) Albumin 2.4 GM/DL (3.4-5.0) 2.6 GM/DL (3.4-5.0) Calcium Level 8.3 MG/DL (8.5-10.1) Aspartate Amino Transf (AST/SGOT) 11 U/L (15-37) 10 U/L (15-37) Sodium Level 146 MEQ/L (136-145) Potassium Level 3.4 MEQ/L (3.5-5.1) 3.3 MEQ/L (3.5-5.1) Chloride Level 113 MEQ/L (98-107) 111 MEQ/L (98-107) Estimat Glomerular Filtration Rate 86 ML/MIN (>89) Imaging Last Impressions Chest X-Ray 11/04/17 0000 Signed Impressions: Service Date/Time: Saturday, November 04, 2017 09:26 - CONCLUSION: No acute cardiopulmonary findings identified. Known fracture of the proximal right humerus. Nikolas Stewart MD Neck CTA 10/27/17 0000 Signed Impressions: Service Date/Time: Friday, October 27, 2017 17:42 - CONCLUSION: 1. Occluded left internal carotid artery 2. Mild narrowing at the origin of the right internal carotid artery measuring 30%%. 3. Patent vertebral arteries with good flow. Price Cee MD Head CTA 10/27/17 0000 Signed Impressions: Service Date/Time: Friday, October 27, 2017 17:42 - CONCLUSION: 1. Occluded intracranial segment of the left internal carotid artery. 2. Very scant flow in the left middle cerebral artery distribution with proximal MCA occlusion. 3. Evolving large left MCA infarct. Price Cee MD Head CT 10/27/17 0000 Signed Impressions: Service Date/Time: Friday, October 27, 2017 17:34 - CONCLUSION: 1. No evidence of acute right-sided infarction. Cystic encephalomalacia involving the left middle cerebral artery distribution unchanged 2. Pansinusitis Soren Rose MD Carotid Artery Ultrasound 10/27/17 0000 Signed Impressions: Service Date/Time: Friday, October 27, 2017 16:16 - CONCLUSION: 1. Findings of left carotid occlusion. CT angiography of the carotid arteries the brain is recommended for further evaluation Soren Rose MD Brain MRI 10/26/17 0000 Signed Impressions: Service Date/Time: Thursday, October 26, 2017 16:34 - CONCLUSION: Cystic encephalomalacia involving large left middle cerebral artery ischemic infarction. There is a small focus of restricted diffusion in the posterior left frontal region without hemorrhage characteristic of extension of the infarct. Pansinusitis Soren Rose MD Radius/Ulna X-Ray 10/25/17 0000 Signed Impressions: Service Date/Time: Wednesday, October 25, 2017 20:03 - CONCLUSION: 1. No acute fracture or dislocation. No bony destructive changes. Carlton Early MD Humerus X-Ray 10/25/17 0000 Signed Impressions: Service Date/Time: Wednesday, October 25, 2017 20:09 - CONCLUSION: 1. Subacute right humeral neck fracture with Callus formation. No significant change in displacement compared with September 30. Carlton Early MD PE at Discharge GENERAL: This is a well-nourished, well-developed patient, in no apparent distress. CARDIOVASCULAR: Normal rate and regular rhythm without murmurs, gallops, or rubs. RESPIRATORY: Good respiratory efforts. Breath sounds equal and clear to auscultation bilaterally. GASTROINTESTINAL: Abdomen soft, non-tender, non-distended. Normal active bowel sounds MUSCULOSKELETAL: Extremities without cyanosis, or edema. NEURO: Alert and follow commands. Right sided paralysis. Left upper and lower extremities normal strength. PSYCH: Calm. Pt update on day of discharge Patient has severe expressive aphasia and is unable to communicate. She can follow some commands. Hospital Course 67-year-old female admitted secondary to extension of left hemisphere CVA. Evaluation and treatment course detailed below: Extension of left hemisphere CVA Neurology followed the patient. Imaging findings as above. Continue supportive care Status post IV heparin and transitioned to Coumadin. INR therapeutic. Physical therapy Speech therapy Injury is extensive, long-term outcome are likely poor for meaningful or significant recovery Seizure Continue Keppra Hypertension Continue JAYLEN inhibitor Continue beta evonne C. difficile colitis: Hypervirulent strain -Patient was followed by infectious disease. She will continue treatment with oral vancomycin for a total of 14 days. Agitation hx Bipolar DO Seroquel continued Cardiomyopathy Baseline EF is approximately 30% Continue beta evonne Continue JAYLEN inhibitor Pt Condition on Discharge: Stable Discharge Disposition: Discharge to SNF Discharge Time: > 30 minutes Discharge Instructions DIET: Follow Instructions for: Heart Healthy Diet Activities you can perform: Regular-No Restrictions New Medications: Vancomycin (Vancomycin) 250 Mg Cap 500 MG PO QID for Infection, #48 CAP 0 Refills Carvedilol (Coreg) 3.125 Mg Tab 3.125 MG PO Q12HR, #60 TAB Levetiracetam (Keppra) 500 Mg Tab 1000 MG PO Q12HR, #60 TAB Lisinopril (Lisinopril) 5 Mg Tab 5 MG PO BID, #60 TAB Quetiapine (Seroquel) 25 Mg Tab 50 MG PO BID@09,12, #60 TAB Warfarin (Coumadin) 2.5 Mg Tab 2.5 MG PO DAILY@1600, #30 TAB Continued Medications: Aspirin (Aspirin) 325 Mg Tab 325 MG PO DAILY, #30 TAB 0 Refills Atorvastatin (Lipitor) 10 Mg Tab 10 MG PO DAILY for Cholesterol Management, #30 TAB Diazepam (Valium) 5 Mg Tab 5 MG PO Q12HR for Anxiety and/or Insomnia, #30 TAB (This prescription has been renewed) Hydrocodone-Acetaminophen (Hydrocodone-Acetaminophen) 5-325 mg Tab 1 TAB PO Q6H PRN for PAIN, #20 TAB 0 Refills (This prescription has been renewed ) Abram Hill MD Nov 08, 2017 11:49
--- NOTE | 2017-11-08 15:24 | HHI.HCPN ---
Reason for visit a. To assist with evaluation and management of symptoms including: Altered mental status, agitation, physical deconditioning b. To assist medical decision maker(s) with: better understanding of current medical conditions; weighing benefits/burdens of medical treatment options; making medical treatment decisions. Subjective/Interval History Patient seen and examined in her room, on [address] Patient sleeping and easily arousable to voice stimulation. Alert- not very conversant today. Currently denies pain, by shaking head for no to pain. Last dose pain medication administered on 11/08/17 at 0616 hours. Patient sparingly using when necessary medications. Patient remains afebrile. SBP 170s. Patient consuming 25% of her lunch and breakfast, and 100 percent recorded last night for dinner. No reports of agitation, mostly restless most likely due to inability to verbalize her needs due to expressive aphasia. No reports of diarrhea per nursing. Last recorded BM on 11/06/17. Case management following. Case discussed with bedside RN . Family/friend interactions No family at bedside. . Advance Directives Living Will: Never completed Health Care Surrogate: Never completed Durable Power of Business Coordinator: Never completed Advance Directive Specifics Health Care Surrogate(s): Health Care Proxy- Raul Mohamud- [phone] . Objective Vital Signs Date Time Temp Pulse Resp B/P (MAP) Pulse Ox O2 Delivery O2 Flow Rate FiO2 11/08/17 13:40 80 11/08/17 10:12 81 11/08/17 08:00 98.1 84 18 175/80 (111) 98 11/08/17 05:45 98.8 69 20 180/88 (118) 100 11/08/17 00:00 98.1 66 19 165/89 (114) 100 11/07/17 20:00 98.8 63 18 180/93 (122) 100 11/07/17 16:58 75 11/07/17 15:55 97.6 67 20 131/60 (83) 100 Intake & Output 11/08/17 11/08/17 07:00 19:00 Intake Total 1200 ml Balance 1200 ml Intake Oral 1200 ml # Voids 6 # Bowel Movements 0 Physical Exam CONSTITUTIONAL/GENERAL: This is an adequately nourished patient, in no apparent distress. TUBES/LINES/DRAINS: PIV SKIN: No jaundice, rashes, or lesions. Ecchymoses on upper extremities. No wounds seen anteriorly. Skin temperature appropriate. Not diaphoretic. HEAD: Atraumatic. Normocephalic. EYES: Pupils equal and round and reactive. Extraocular motions intact. No scleral icterus. No injection or drainage. Fundi not examined. ENT: Hearing grossly normal. Nose without bleeding or purulent drainage. Moist oral mucosa. NECK: Trachea midline. Supple, nontender. CARDIOVASCULAR: Regular rate and rhythm without murmurs, gallops, or rubs. No JVD. Peripheral pulses symmetric. RESPIRATORY/CHEST: Symmetric, unlabored respirations. Clear to auscultation. Breath sounds equal bilaterally. No wheezes, rales, or rhonchi. GASTROINTESTINAL: Abdomen soft, non-tender, nondistended. No guarding. Bowel sounds present. GENITOURINARY: Without palpable bladder distension. Medrano catheter in place. MUSCULOSKELETAL: Extremities without clubbing, cyanosis, or edema. No joint tenderness or effusion noted. No calf tenderness. No mottling or clubbing. NEUROLOGICAL:Sleeping, arousable to voice stimulation. flaccid to right side. Spontaneously Moves left upper and lower extremities. PSYCHIATRIC: Currently calm. Sleeping. No obvious anxiety/depression. no apparent hallucinations or other psychotic thought process. . Diagnostic Tests Laboratory Laboratory Tests Test 11/06/17 05:23 11/07/17 06:30 11/08/17 07:55 White Blood Count 7.7 TH/MM3 (4.0-11.0) 6.4 TH/MM3 (4.0-11.0) Red Blood Count 3.52 MIL/MM3 (4.00-5.30) 3.76 MIL/MM3 (4.00-5.30) Hemoglobin 10.9 GM/DL (11.6-15.3) 11.5 GM/DL (11.6-15.3) Hematocrit 31.5 % (35.0-46.0) 33.9 % (35.0-46.0) Mean Corpuscular Volume 89.4 FL (80.0-100.0) 90.1 FL (80.0-100.0) Mean Corpuscular Hemoglobin 31.0 PG (27.0-34.0) 30.7 PG (27.0-34.0) Mean Corpuscular Hemoglobin Concent 34.7 % (32.0-36.0) 34.1 % (32.0-36.0) Red Cell Distribution Width 15.2 % (11.6-17.2) 14.8 % (11.6-17.2) Platelet Count 196 TH/MM3 (150-450) 234 TH/MM3 (150-450) Mean Platelet Volume 8.3 FL (7.0-11.0) 8.7 FL (7.0-11.0) Neutrophils (%) (Auto) 70.1 % (16.0-70.0) 66.4 % (16.0-70.0) Lymphocytes (%) (Auto) 18.9 % (9.0-44.0) 23.0 % (9.0-44.0) Monocytes (%) (Auto) 8.0 % (0.0-8.0) 6.5 % (0.0-8.0) Eosinophils (%) (Auto) 2.6 % (0.0-4.0) 3.8 % (0.0-4.0) Basophils (%) (Auto) 0.4 % (0.0-2.0) 0.3 % (0.0-2.0) Neutrophils # (Auto) 5.4 TH/MM3 (1.8-7.7) 4.3 TH/MM3 (1.8-7.7) Lymphocytes # (Auto) 1.5 TH/MM3 (1.0-4.8) 1.5 TH/MM3 (1.0-4.8) Monocytes # (Auto) 0.6 TH/MM3 (0-0.9) 0.4 TH/MM3 (0-0.9) Eosinophils # (Auto) 0.2 TH/MM3 (0-0.4) 0.2 TH/MM3 (0-0.4) Basophils # (Auto) 0.0 TH/MM3 (0-0.2) 0.0 TH/MM3 (0-0.2) CBC Comment DIFF FINAL DIFF FINAL Differential Comment Prothrombin Time 24.2 SEC (9.8-11.6) 24.8 SEC (9.8-11.6) 20.0 SEC (9.8-11.6) Prothromb Time International Ratio 2.4 RATIO 2.5 RATIO 2.0 RATIO Blood Urea Nitrogen 16 MG/DL (7-18) 10 MG/DL (7-18) Creatinine 0.68 MG/DL (0.50-1.00) 0.63 MG/DL (0.50-1.00) Random Glucose 102 MG/DL (74-106) 78 MG/DL (74-106) Total Protein 5.9 GM/DL (6.4-8.2) 6.1 GM/DL (6.4-8.2) Albumin 2.4 GM/DL (3.4-5.0) 2.6 GM/DL (3.4-5.0) Calcium Level 8.3 MG/DL (8.5-10.1) 8.6 MG/DL (8.5-10.1) Alkaline Phosphatase 84 U/L (45-117) 85 U/L (45-117) Aspartate Amino Transf (AST/SGOT) 11 U/L (15-37) 10 U/L (15-37) Alanine Aminotransferase (ALT/SGPT) 17 U/L (10-53) 15 U/L (10-53) Total Bilirubin 0.3 MG/DL (0.2-1.0) 0.3 MG/DL (0.2-1.0) Sodium Level 146 MEQ/L (136-145) 144 MEQ/L (136-145) Potassium Level 3.4 MEQ/L (3.5-5.1) 3.3 MEQ/L (3.5-5.1) Chloride Level 113 MEQ/L (98-107) 111 MEQ/L (98-107) Carbon Dioxide Level 27.3 MEQ/L (21.0-32.0) 27.9 MEQ/L (21.0-32.0) Anion Gap 6 MEQ/L (5-15) 5 MEQ/L (5-15) Estimat Glomerular Filtration Rate 86 ML/MIN (>89) 94 ML/MIN (>89) Result Diagram: 11/07/1762911/07/17629 Assessment and Plan Disease Oriented Problem List: (1) CVA (cerebral vascular accident) (2) HTN (hypertension) (3) Encephalopathy (4) Tobacco abuse Symptom Scale: (1) Altered mental status 0-10 Scale: Unable to quantify Comment: Multifactorial. History of bipolar disorder and CVA . (2) Physical deconditioning 0-10 Scale: Unable to quantify Comment: Progressive. . Pertinent Non-Medical Issues Psychosocial:Patient was born in [facility]. She is . Patient graduated from college and is a bachelor's degree in education. 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 Spiritual:Patient is [employer] Legal: Patient does not have advanced directives. Ethical issues impacting care: None identified at this time. . Important Contacts Son- Raul Bennett- [phone] Sister Harvey Fernandez [phone] Sister Michelle Raza [phone] . Prognosis Ms Rodríguez is a 67 years old female with a past medical history CVA with residual aphasia, right hemiplegia and left hemiparesis, hypertension, Diabetes Mellitus- Type 2, anxiety disorder, bipolar disorder, osteoarthritis and insomnia. Patient was admitted from 05/20/17-05/29/17 and treated for an acute left frontoparietal CVA .She was discharged to a SNF [facility]. Patient was transported by EMS to the ER on 10/25/17 with a complaint of altered mental status. Patient was found slumped over after she had wheeled herself outside to smoke, and ecchymosis to right humerus and forearm. Clinical course complicated with evolving left hemisphere CVA, agitation, and delirium. Given ongoing comorbidities, patient remains at high risk for further complications, deterioration and decline. . Code Status: Full Code Plan PLAN: Legal decision maker: Patient has a history of stroke with expressive aphasia , agitation and altered mental status during this hospitalization. Patient is not able to participate in making her own medical decisions. Patient has an adult son who according to [place] Statute will serve as patient`s Health Care Proxy. Goals: Aggressive- case management following. Discharge order to SNF placed. CODE STATUS: Full Code SYMPTOMS: * Altered mental status:Multifactorial. History of bipolar disorder and CVA. Head CTA 10/27/17 revealed evolving CVA. Was on Haldol which was discontinued on . Patient is also on Valium 5mg BID.Patient on Seroquel 50mg BID. No recommendations. * Agitation: Multifactorial. History of bipolar disorder and CVA with expressive aphasia. Psychiatry consulted. On Seroquel 50mg BID. Seems to be compounded with inability to communicate her needs. No recommendations at this time. Patient is calm. * Physical deconditioning: Progressive. Patient has a history CVA with Residual Aphasia,Right Hemiplegia and Left Hemiparesis. During her admission in January 2017 patient weight 79.7kgs and on October 28, 2017 patient weighed 59.9kgs. Physical therapy consulted. Occupational therapy consulted and recommended OT at rehabilitation. Patient's participation is limited due to expressive aphasia, inability to comprehend complex commands, right hemiplegia and left hemiparesis. Speech therapy consulted, recommended speech therapy at rehabilitation. No recommendations at this time. Palliative care will continue to follow the patient during hospital course as condition evolves, to assist patient/decision-maker with understanding of their medical conditions, weighing benefits/burdens of treatment options, for clarification of goals of treatment. Additionally will assist with any symptoms of palliative concern Attestation To help prompt me to consider important information that might be impacting today's encounter and assessment, information from prior notes written by myself or my colleagues may have been "brought forward" into today's note. My signature on this note, however, is an attestation that I personally performed the exam, history, and/or decision-making noted today, and, unless otherwise indicated, the interactions with patient, family, and staff as well as the review of records all occurred today. I also attest that the listed assessment and stated plan reflect my best clinical judgment today based on the combination of historical information, prior notes, and today's exam/ interactions. When time spent is documented, it refers only to time spent today by the signer, or if indicated, combined time spent today by collaborating physician/nurse practitioner. Susan Dawson Nov 08, 2017 15:24
[2017-11-08] MEDS: WARFARIN SOD 2.5 MG TAB PO SCH (17:07)
[2017-11-08] MEDS: LISINOPRIL 5 MG TAB PO SCH (21:30)
[2017-11-09] VITALS (11 sets, daily range): BP systolic 120–135; BP diastolic 59–89; PULSE 70–110; RESP 16–20; TEMP 97.8–98.4; O2SAT 94–97
[2017-11-09] MEDS: VANCOMYCIN 500 MG VIAL (FOR ORAL USE ONLY) PO SCH ×5 (05:44→23:23)
[2017-11-09] MEDS: ACETAMINOPHEN/HYDROcodone 325 MG/10 MG TAB PO PRN ×2 (05:44→12:48)
[2017-11-09 07:59] LABS: INTERNATIONAL NORMALIZED RATIO 1.4 RATIO; PROTHROMBIN TIME - PATIENT 14.1 SEC (9.8-11.6)
[2017-11-09] MEDS: ATORVASTATIN 10 MG TAB PO SCH (08:35)
[2017-11-09] MEDS: QUEtiapine FUMARATE 25 MG TAB PO SCH ×2 (08:35→12:05)
[2017-11-09] MEDS: LACTOBACILLUS ACIDOPHILUS TAB PO SCH ×3 (08:35→17:07)
[2017-11-09] MEDS: DIAZEPAM 5 MG TAB PO SCH ×2 (08:36→22:06)
[2017-11-09] MEDS: SODIUM CHLORIDE 0.9% FLUSH 10 ML FLUSH IV FLUSH SCH ×2 (08:36→22:07)
[2017-11-09] MEDS: LISINOPRIL 5 MG TAB PO SCH ×2 (08:36→22:06)
[2017-11-09] MEDS: CARVEDILOL 3.125 MG TAB PO SCH ×2 (08:36→22:06)
[2017-11-09] MEDS: levETIRAcetam 500 MG TAB PO SCH ×2 (08:36→22:07)
[2017-11-09] MEDS: DOCUSATE SODIUM 50 MG/SENNA 8.6 MG TAB PO SCH ×2 (08:36→22:06)
--- NOTE | 2017-11-09 10:47 | HHI.PR ---
Subjective Remarks No change in clinical status except for decreased INR. Patient medically cleared for discharge. Awaiting SNF placement. Objective Vitals Vital Signs Date Time Temp Pulse Resp B/P (MAP) Pulse Ox O2 Delivery O2 Flow Rate FiO2 11/09/17 09:28 89 11/09/17 07:51 98.1 85 18 124/82 (96) 94 11/09/17 06:00 98.3 110 20 135/80 (98) 96 11/09/17 04:30 97.8 80 18 130/84 (99) 95 11/09/17 00:00 98.1 89 20 125/89 (101) 97 11/08/17 20:30 97.9 95 19 126/94 (105) 98 11/08/17 17:22 81 11/08/17 16:00 97.7 78 18 166/72 (103) 98 11/08/17 13:40 80 11/08/17 12:00 97.4 82 18 160/63 (95) 98 I/O 11/08/17 11/08/17 11/08/17 11/09/17 11/09/17 11/09/17 07:00 15:00 23:00 07:00 15:00 23:00 Intake Total 400 ml 400 ml 1100 ml Balance 400 ml 400 ml 1100 ml Intake Oral 400 ml 400 ml 1100 ml # Voids 6 3 12 # Bowel Movements 0 0 0 Result Diagram: 11/07/17 0630 11/07/17 0630 Objective Remarks GENERAL: This is a well-nourished, well-developed patient, in no apparent distress. CARDIOVASCULAR: Normal rate and regular rhythm without murmurs, gallops, or rubs. RESPIRATORY: Good respiratory efforts. Breath sounds equal and clear to auscultation bilaterally. GASTROINTESTINAL: Abdomen soft, non-tender, non-distended. Normal active bowel sounds MUSCULOSKELETAL: Extremities without cyanosis, or edema. NEURO: Alert and follow commands. Right sided paralysis. Left upper and lower extremities normal strength. PSYCH: Calm. Procedures none A/P Problem List: (1) Encephalopathy ICD Code: G93.40 - Encephalopathy, unspecified (2) CVA (cerebral vascular accident) ICD Code: I63.9 - Cerebral infarction, unspecified (3) HTN (hypertension) ICD Code: I10 - Essential (primary) hypertension (4) Tobacco abuse ICD Code: Z72.0 - Tobacco use Assessment and Plan 67-year-old female admitted secondary to extension of left hemisphere CVA. Extension of left hemisphere CVA Neurology following. Continue supportive care Status post IV heparin and transitioned to Coumadin. INR has been therapeutic but the patient missed a dose when she refused to medication. INR dropped today to 1.4. Repeat INR tomorrow. Physical therapy Speech therapy Injury is extensive, long-term outcome are likely poor for significant recovery Seizure Continue Keppra Neurology following Hypertension Continue JAYLEN inhibitor Continue beta evonne Continue as needed Vasotec C. difficile colitis: Hypervirulent strain - Appreciate ID following. Patient is on v oral ancomycin and Flagyl. Agitation hx Bipolar DO Seroquel continued Cardiomyopathy Baseline EF is approximately 30% Continue beta evonne Continue JAYLEN inhibitor DVT Prophylaxis Heparin Discharge Planning DC planning to SNF. Case management following Abram Hill MD Nov 09, 2017 10:47
[2017-11-09] MEDS ORDERED: WARFARIN SOD 2 MG TAB PO ONE (16:00)
[2017-11-09] MEDS: WARFARIN SOD 2.5 MG TAB PO SCH (17:06)
[2017-11-10] VITALS (9 sets, daily range): BP systolic 118–174; BP diastolic 58–86; PULSE 69–81; RESP 18–20; TEMP 97.6–98; O2SAT 94–98
[2017-11-10] MEDS: VANCOMYCIN 500 MG VIAL (FOR ORAL USE ONLY) PO SCH ×3 (06:19→16:54)
[2017-11-10] MEDS: QUEtiapine FUMARATE 25 MG TAB PO SCH ×2 (09:38→12:27)
[2017-11-10] MEDS: LACTOBACILLUS ACIDOPHILUS TAB PO SCH ×3 (09:38→16:54)
[2017-11-10] MEDS: ATORVASTATIN 10 MG TAB PO SCH (09:38)
[2017-11-10] MEDS: levETIRAcetam 500 MG TAB PO SCH ×2 (09:39→21:03)
[2017-11-10] MEDS: SODIUM CHLORIDE 0.9% FLUSH 10 ML FLUSH IV FLUSH SCH ×2 (09:39→21:00)
[2017-11-10] MEDS: LISINOPRIL 5 MG TAB PO SCH ×2 (09:39→21:03)
[2017-11-10] MEDS: DIAZEPAM 5 MG TAB PO SCH ×2 (09:39→21:03)
[2017-11-10] MEDS: DOCUSATE SODIUM 50 MG/SENNA 8.6 MG TAB PO SCH ×2 (09:39→21:03)
[2017-11-10] MEDS: CARVEDILOL 3.125 MG TAB PO SCH ×2 (09:39→21:03)
--- NOTE | 2017-11-10 13:10 | HHI.PR ---
Subjective Remarks No new issues. Awaiting placement. Patient has severe expressive aphasia. Objective Vitals Vital Signs Date Time Temp Pulse Resp B/P (MAP) Pulse Ox O2 Delivery O2 Flow Rate FiO2 11/10/17 12:00 97.6 80 18 120/58 (78) 94 11/10/17 09:15 72 11/10/17 04:00 97.8 73 20 133/62 (85) 95 11/10/17 00:49 79 11/10/17 00:00 98.0 70 20 143/66 (91) 95 11/09/17 20:46 98.0 76 16 128/60 (82) 96 11/09/17 20:21 70 11/09/17 18:18 71 11/09/17 15:35 98.4 71 18 122/59 (80) 97 I/O 11/09/17 11/09/17 11/09/17 11/10/17 11/10/17 11/10/17 07:00 15:00 23:00 07:00 15:00 23:00 Intake Total 1100 ml 240 ml 120 ml 120 ml Balance 1100 ml 240 ml 120 ml 120 ml Intake Oral 1100 ml 240 ml 120 ml 120 ml # Voids 12 2 1 1 # Bowel Movements 0 0 Result Diagram: 11/07/17 0630 11/07/17 0630 Objective Remarks GENERAL: This is a well-nourished, well-developed patient, in no apparent distress. CARDIOVASCULAR: Normal rate and regular rhythm without murmurs, gallops, or rubs. RESPIRATORY: Good respiratory efforts. Breath sounds equal and clear to auscultation bilaterally. GASTROINTESTINAL: Abdomen soft, non-tender, non-distended. Normal active bowel sounds MUSCULOSKELETAL: Extremities without cyanosis, or edema. NEURO: Alert and follow commands. Right sided paralysis. Left upper and lower extremities normal strength. PSYCH: Calm. Procedures none A/P Problem List: (1) Encephalopathy ICD Code: G93.40 - Encephalopathy, unspecified (2) CVA (cerebral vascular accident) ICD Code: I63.9 - Cerebral infarction, unspecified (3) HTN (hypertension) ICD Code: I10 - Essential (primary) hypertension (4) Tobacco abuse ICD Code: Z72.0 - Tobacco use Assessment and Plan 67-year-old female admitted secondary to extension of left hemisphere CVA. Extension of left hemisphere CVA Neurology following. Continue supportive care Status post IV heparin and transitioned to Coumadin. INR has been therapeutic but the patient missed a dose when she refused to medication. INR pending today. Physical therapy Speech therapy Injury is extensive, long-term outcome for significant recovery unlikely Seizure Continue Keppra Neurology following Hypertension Continue JAYLEN inhibitor Continue beta evonne Continue as needed Vasotec C. difficile colitis: Hypervirulent strain - Appreciate ID following. Patient is on v oral vancomycin and Flagyl. Agitation hx Bipolar DO Seroquel continued Cardiomyopathy Baseline EF is approximately 30% Continue beta evonne Continue JAYLEN inhibitor DVT Prophylaxis Heparin Discharge Planning DC planning to SNF whenever arrangements are made. Case management following Abram Hill MD Nov 10, 2017 13:10
[2017-11-10] MEDS: WARFARIN SOD 2.5 MG TAB PO SCH (16:53)
[2017-11-11] VITALS (11 sets, daily range): BP systolic 129–181; BP diastolic 62–86; PULSE 60–82; RESP 18–20; TEMP 97.1–98.1; O2SAT 97–100
[2017-11-11] MEDS: ENALAPRILAT 1.25 MG/ML VIAL IV PUSH PRN (00:21)
[2017-11-11] MEDS: VANCOMYCIN 500 MG VIAL (FOR ORAL USE ONLY) PO SCH ×4 (01:00→17:32)
[2017-11-11] MEDS: ACETAMINOPHEN/HYDROcodone 325 MG/10 MG TAB PO PRN ×3 (03:21→17:33)
[2017-11-11] MEDS: LACTOBACILLUS ACIDOPHILUS TAB PO SCH ×3 (09:32→17:32)
[2017-11-11] MEDS: DIAZEPAM 5 MG TAB PO SCH ×2 (09:32→21:28)
[2017-11-11] MEDS: QUEtiapine FUMARATE 25 MG TAB PO SCH ×2 (09:32→12:40)
[2017-11-11] MEDS: CARVEDILOL 3.125 MG TAB PO SCH ×2 (09:33→21:28)
[2017-11-11] MEDS: DOCUSATE SODIUM 50 MG/SENNA 8.6 MG TAB PO SCH ×2 (09:33→21:28)
[2017-11-11] MEDS: LISINOPRIL 5 MG TAB PO SCH ×2 (09:35→21:28)
[2017-11-11] MEDS: levETIRAcetam 500 MG TAB PO SCH ×2 (09:35→21:28)
[2017-11-11] MEDS: LACTULOSE SYRUP 20 GM/30 ML CUP PO PRN (09:36)
[2017-11-11] MEDS: ATORVASTATIN 10 MG TAB PO SCH (09:36)
[2017-11-11] MEDS: SODIUM CHLORIDE 0.9% FLUSH 10 ML FLUSH IV FLUSH SCH ×2 (09:36→21:28)
--- NOTE | 2017-11-11 10:17 | HHI.PR ---
Subjective Remarks Patient resting comfortably. No new issues. Awaiting SNF placement Objective Vitals Vital Signs Date Time Temp Pulse Resp B/P (MAP) Pulse Ox O2 Delivery O2 Flow Rate FiO2 11/11/17 07:39 74 11/11/17 04:00 98.1 78 20 181/86 (117) 97 11/11/17 01:57 78 149/66 (93) 11/11/17 01:00 76 11/11/17 00:00 97.8 82 20 178/74 (108) 99 11/10/17 23:00 81 11/10/17 20:00 97.6 76 20 174/74 (107) 97 11/10/17 18:40 69 11/10/17 16:00 97.7 80 19 118/86 (97) 98 11/10/17 12:00 97.6 80 18 120/58 (78) 94 I/O 11/10/17 11/10/17 11/10/17 11/11/17 11/11/17 11/11/17 07:00 15:00 23:00 07:00 15:00 23:00 Intake Total 120 ml 120 ml 480 ml Balance 120 ml 120 ml 480 ml Intake Oral 120 ml 120 ml 480 ml # Voids 1 1 2 # Bowel Movements 0 0 Result Diagram: 11/07/1730 11/07/17 0630 Objective Remarks GENERAL: This is a well-nourished, well-developed patient, in no apparent distress. CARDIOVASCULAR: Normal rate and regular rhythm without murmurs, gallops, or rubs. RESPIRATORY: Good respiratory efforts. Breath sounds equal and clear to auscultation bilaterally. GASTROINTESTINAL: Abdomen soft, non-tender, non-distended. Normal active bowel sounds MUSCULOSKELETAL: Extremities without cyanosis, or edema. NEURO: Alert and follow commands. Right sided paralysis. Left upper and lower extremities normal strength. PSYCH: Calm. Procedures none A/P Problem List: (1) Encephalopathy ICD Code: G93.40 - Encephalopathy, unspecified (2) CVA (cerebral vascular accident) ICD Code: I63.9 - Cerebral infarction, unspecified (3) HTN (hypertension) ICD Code: I10 - Essential (primary) hypertension (4) Tobacco abuse ICD Code: Z72.0 - Tobacco use Assessment and Plan 67-year-old female admitted secondary to extension of left hemisphere CVA. Patient is medically cleared for discharge. Awaiting SNF placement. Extension of left hemisphere CVA Neurology following. Continue supportive care Status post IV heparin and transitioned to Coumadin. INR pending today. Physical therapy Speech therapy Injury is extensive, long-term outcome for significant recovery unlikely Seizure Continue Keppra Neurology following Hypertension Continue JAYLEN inhibitor Continue beta evonne Continue as needed Vasotec C. difficile colitis: Hypervirulent strain - Appreciate ID following. Patient is on v oral vancomycin and Flagyl. Agitation hx Bipolar DO Seroquel continued Cardiomyopathy Baseline EF is approximately 30% Continue beta evonne Continue JAYLEN inhibitor DVT Prophylaxis Heparin Discharge Planning DC to SNF whenever arrangements are made. Case management following Abram Hill MD Nov 11, 2017 10:17
[2017-11-11] MEDS: WARFARIN SOD 2.5 MG TAB PO SCH (17:32)
[2017-11-12] VITALS: BP 165/72; PULSE 64; RESP 18; TEMP 97.2; O2SAT 97
[2017-11-12] MEDS: VANCOMYCIN 500 MG VIAL (FOR ORAL USE ONLY) PO SCH ×5 (00:38→23:14)
[2017-11-12 04:00] VITALS: BP 155/68; PULSE 74; RESP 18; TEMP 98.4; O2SAT 93
[2017-11-12] MEDS: ACETAMINOPHEN/HYDROcodone 325 MG/10 MG TAB PO PRN ×3 (06:12→22:34)
[2017-11-12 08:00] VITALS: BP 181/81; PULSE 59; PULSE 70; RESP 18; TEMP 97.4; O2SAT 97
[2017-11-12 08:33] LABS: INTERNATIONAL NORMALIZED RATIO 2.5 RATIO; PROTHROMBIN TIME - PATIENT 25.1 SEC (9.8-11.6)
[2017-11-12] MEDS: levETIRAcetam 500 MG TAB PO SCH ×2 (09:37→22:15)
[2017-11-12] MEDS: LISINOPRIL 5 MG TAB PO SCH ×2 (09:38→22:16)
[2017-11-12] MEDS: CARVEDILOL 3.125 MG TAB PO SCH ×2 (09:38→22:16)
[2017-11-12] MEDS: DIAZEPAM 5 MG TAB PO SCH ×2 (09:38→22:16)
[2017-11-12] MEDS: LACTOBACILLUS ACIDOPHILUS TAB PO SCH ×3 (09:38→17:53)
[2017-11-12] MEDS: ATORVASTATIN 10 MG TAB PO SCH (09:38)
[2017-11-12] MEDS: QUEtiapine FUMARATE 25 MG TAB PO SCH ×2 (09:38→12:00)
[2017-11-12] MEDS: DOCUSATE SODIUM 50 MG/SENNA 8.6 MG TAB PO SCH ×2 (09:38→21:00)
[2017-11-12] MEDS: SODIUM CHLORIDE 0.9% FLUSH 10 ML FLUSH IV FLUSH SCH ×2 (09:39→22:16)
--- NOTE | 2017-11-12 10:43 | HHI.PR ---
Subjective Remarks Follow up CVA. Continues to have severe expressive aphasia. Indicates no pain at this time. Objective Vitals Vital Signs Date Time Temp Pulse Resp B/P (MAP) Pulse Ox O2 Delivery O2 Flow Rate FiO2 11/12/17 04:00 98.4 74 18 155/68 (97) 93 11/12/17 00:00 97.2 64 18 165/72 (103) 97 11/11/17 23:00 60 11/11/17 20:00 97.5 60 18 158/72 (100) 97 11/11/17 16:00 64 11/11/17 12:58 68 11/11/17 12:00 97.2 66 18 129/62 (84) 97 I/O 11/11/17 11/11/17 11/11/17 11/12/17 11/12/17 11/12/17 07:00 15:00 23:00 07:00 15:00 23:00 # Voids 1 1 # Bowel Movements 1 Imaging Last Impressions Chest X-Ray 11/04/17 0000 Signed Impressions: Service Date/Time: Saturday, November 04, 2017 09:26 - CONCLUSION: No acute cardiopulmonary findings identified. Known fracture of the proximal right humerus. Nikolas Stewart MD Neck CTA 10/27/17 0000 Signed Impressions: Service Date/Time: Friday, October 27, 2017 17:42 - CONCLUSION: 1. Occluded left internal carotid artery 2. Mild narrowing at the origin of the right internal carotid artery measuring 30%%. 3. Patent vertebral arteries with good flow. Price Cee MD Head CTA 10/27/17 0000 Signed Impressions: Service Date/Time: Friday, October 27, 2017 17:42 - CONCLUSION: 1. Occluded intracranial segment of the left internal carotid artery. 2. Very scant flow in the left middle cerebral artery distribution with proximal MCA occlusion. 3. Evolving large left MCA infarct. Price Cee MD Head CT 10/27/17 0000 Signed Impressions: Service Date/Time: Friday, October 27, 2017 17:34 - CONCLUSION: 1. No evidence of acute right-sided infarction. Cystic encephalomalacia involving the left middle cerebral artery distribution unchanged 2. Pansinusitis Soren Rose MD Carotid Artery Ultrasound 10/27/17 0000 Signed Impressions: Service Date/Time: Friday, October 27, 2017 16:16 - CONCLUSION: 1. Findings of left carotid occlusion. CT angiography of the carotid arteries the brain is recommended for further evaluation Soren Rose MD Brain MRI 10/26/17 0000 Signed Impressions: Service Date/Time: Thursday, October 26, 2017 16:34 - CONCLUSION: Cystic encephalomalacia involving large left middle cerebral artery ischemic infarction. There is a small focus of restricted diffusion in the posterior left frontal region without hemorrhage characteristic of extension of the infarct. Pansinusitis Soren Rose MD Radius/Ulna X-Ray 10/25/17 0000 Signed Impressions: Service Date/Time: Wednesday, October 25, 2017 20:03 - CONCLUSION: 1. No acute fracture or dislocation. No bony destructive changes. Carlton Early MD Humerus X-Ray 10/25/17 0000 Signed Impressions: Service Date/Time: Wednesday, October 25, 2017 20:09 - CONCLUSION: 1. Subacute right humeral neck fracture with Callus formation. No significant change in displacement compared with September 30. Carlton Early MD Objective Remarks General: Elderly female in no acute distress. Heart: Regular rate and rhythm. No murmur. Lungs: Clear to auscultation bilaterally. No wheezes, rales, or rhonchi. Breathing is nonlabored. Abdomen: Soft, nontender, nondistended. Extremities: No lower extremity edema. Psych: Alert. Neuro: Follows commands. Right hemiparesis. Severe expressive aphasia. Procedures none Urinary Catheter: No Vascular Central Line Catheter: No A/P Problem List: (1) Encephalopathy ICD Code: G93.40 - Encephalopathy, unspecified (2) CVA (cerebral vascular accident) ICD Code: I63.9 - Cerebral infarction, unspecified (3) HTN (hypertension) ICD Code: I10 - Essential (primary) hypertension (4) Tobacco abuse ICD Code: Z72.0 - Tobacco use Assessment and Plan 1. Extension of left hemisphere CVA: Appreciate neurology recommendations. Continue Coumadin. INR is therapeutic. Continue PT/OT. Patient continues to have severe expressive aphasia as well as right-sided weakness. Injury is extensive, long-term prognosis for significant recovery is poor. Speech therapy signed off. 2. Seizure: Continue Keppra. 3. Hypertension: Continue JAYLEN inhibitor, beta evonne. Vasotec as needed. 4. C. difficile colitis: Appreciate infectious disease recommendations. Continue vancomycin and Flagyl. 5. Bipolar disorder, agitation: Continue Seroquel. 6. Cardiomyopathy: Continue beta evonne, JAYLEN inhibitor. 7. DVT prophylaxis: Heparin. Discharge Planning Discharge to SNF when arrangements are made. Aniceto Reardon MD Nov 12, 2017 10:43
[2017-11-12 12:00] VITALS: BP 121/57; PULSE 66; RESP 18; TEMP 97.1; O2SAT 97
[2017-11-12 16:00] VITALS: BP 163/70; PULSE 68; RESP 18; TEMP 97.4; O2SAT 100
[2017-11-12] MEDS: ENALAPRILAT 1.25 MG/ML VIAL IV PUSH PRN (17:53)
--- NOTE | 2017-11-12 18:01 | HHI.HCPN ---
Reason for visit a. To assist with evaluation and management of symptoms including: Altered mental status, agitation, physical deconditioning b. To assist medical decision maker(s) with: better understanding of current medical conditions; weighing benefits/burdens of medical treatment options; making medical treatment decisions. (Susan Dawson) Subjective/Interval History Patient seen and examined in her room, on 5 N.Patient is awake, gesturing with her left hand, nodes head to yes when asked if she wanted to get out of bed. Explained to patient the risk of falling. Patient pointing to her right arm when asked is she was in pain. Followed command with LUE and LLE. Flaccid on Right side. Sling noted to RUE. Patient remains afebrile. SBP ranges from 120s to 180s. Speech therapy, physical therapy and occupational therapy following. Case management working with [facility] to see if patient can be accepted there. . Family/friend interactions No family at bedside . (Susan Dawson) Advance Directives Living Will: Never completed Health Care Surrogate: Never completed Durable Power of Event Decorator And Designer: Never completed (Susan Dawson) Advance Directive Specifics Health Care Surrogate(s): Health Care Proxy- Alia Bennett, Raul- [phone] . (Susan Dawson) Objective Vital Signs Date Time Temp Pulse Resp B/P (MAP) Pulse Ox O2 Delivery O2 Flow Rate FiO2 11/12/17 12:00 97.1 66 18 121/57 (78) 97 11/12/17 08:00 59 11/12/17 08:00 97.4 70 18 181/81 (114) 97 11/12/17 04:00 98.4 74 18 155/68 (97) 93 11/12/17 00:00 97.2 64 18 165/72 (103) 97 11/11/17 23:00 60 11/11/17 20:00 97.5 60 18 158/72 (100) 97 Intake & Output 11/12/17 11/12/17 07:00 19:00 # Voids 1 1 Physical Exam CONSTITUTIONAL/GENERAL: This is an adequately nourished patient, in no apparent distress. TUBES/LINES/DRAINS: PIV SKIN: No jaundice, rashes, or lesions. Ecchymoses on upper extremities. No wounds seen anteriorly. Skin temperature appropriate. Not diaphoretic. HEAD: Atraumatic. Normocephalic. EYES: Pupils equal and round and reactive. Extraocular motions intact. No scleral icterus. No injection or drainage. Fundi not examined. ENT: Hearing grossly normal. Nose without bleeding or purulent drainage. Moist oral mucosa. NECK: Trachea midline. Supple, nontender. CARDIOVASCULAR: Regular rate and rhythm without murmurs, gallops, or rubs. No JVD. Peripheral pulses symmetric. RESPIRATORY/CHEST: Symmetric, unlabored respirations. Clear to auscultation. Breath sounds equal bilaterally. No wheezes, rales, or rhonchi. GASTROINTESTINAL: Abdomen soft, non-tender, nondistended. No guarding. Bowel sounds present. GENITOURINARY: Without palpable bladder distension. MUSCULOSKELETAL: Extremities without clubbing, cyanosis, or edema. No joint tenderness or effusion noted. No calf tenderness. No mottling or clubbing. NEUROLOGICAL:Sleeping, arousable to voice stimulation. flaccid to right side. Spontaneously Moves left upper and lower extremities. PSYCHIATRIC: Currently calm. Sleeping. No obvious anxiety/depression. no apparent hallucinations or other psychotic thought process. . (Susan Dawson) Diagnostic Tests Laboratory Laboratory Tests Test 11/12/17 07:18 Prothrombin Time 25.1 SEC (9.8-11.6) Prothromb Time International Ratio 2.5 RATIO (Susan Dawson) Imaging Last Impressions Chest X-Ray 11/04/17 0000 Signed Impressions: Service Date/Time: Saturday, November 04, 2017 09:26 - CONCLUSION: No acute cardiopulmonary findings identified. Known fracture of the proximal right humerus. Nikolas Stewart MD Neck CTA 10/27/17 0000 Signed Impressions: Service Date/Time: Friday, October 27, 2017 17:42 - CONCLUSION: 1. Occluded left internal carotid artery 2. Mild narrowing at the origin of the right internal carotid artery measuring 30%%. 3. Patent vertebral arteries with good flow. Price Cee MD Head CTA 10/27/17 0000 Signed Impressions: Service Date/Time: Friday, October 27, 2017 17:42 - CONCLUSION: 1. Occluded intracranial segment of the left internal carotid artery. 2. Very scant flow in the left middle cerebral artery distribution with proximal MCA occlusion. 3. Evolving large left MCA infarct. Price Cee MD Head CT 10/27/17 0000 Signed Impressions: Service Date/Time: Friday, October 27, 2017 17:34 - CONCLUSION: 1. No evidence of acute right-sided infarction. Cystic encephalomalacia involving the left middle cerebral artery distribution unchanged 2. Pansinusitis Soren Rose MD Carotid Artery Ultrasound 10/27/17 0000 Signed Impressions: Service Date/Time: Friday, October 27, 2017 16:16 - CONCLUSION: 1. Findings of left carotid occlusion. CT angiography of the carotid arteries the brain is recommended for further evaluation Soren Rose MD Brain MRI 10/26/17 0000 Signed Impressions: Service Date/Time: Thursday, October 26, 2017 16:34 - CONCLUSION: Cystic encephalomalacia involving large left middle cerebral artery ischemic infarction. There is a small focus of restricted diffusion in the posterior left frontal region without hemorrhage characteristic of extension of the infarct. Pansinusitis Soren Rose MD Radius/Ulna X-Ray 10/25/17 0000 Signed Impressions: Service Date/Time: Wednesday, October 25, 2017 20:03 - CONCLUSION: 1. No acute fracture or dislocation. No bony destructive changes. Carlton Early MD Humerus X-Ray 10/25/17 0000 Signed Impressions: Service Date/Time: Wednesday, October 25, 2017 20:09 - CONCLUSION: 1. Subacute right humeral neck fracture with Callus formation. No significant change in displacement compared with September 30. Carlton Early MD ([facility]) Assessment and Plan Disease Oriented Problem List: (1) CVA (cerebral vascular accident) (2) HTN (hypertension) (3) Encephalopathy (4) Tobacco abuse Symptom Scale: (1) Altered mental status 0-10 Scale: Unable to quantify Comment: Multifactorial. History of bipolar disorder and CVA . (2) Physical deconditioning 0-10 Scale: Unable to quantify Comment: Progressive. . Pertinent Non-Medical Issues Psychosocial:Patient was born in [facility]. She is . Patient graduated from college and is a bachelor's degree in education. 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 Spiritual:Patient is Religious Legal: Patient does not have advanced directives. Ethical issues impacting care: None identified at this time. . Important Contacts Son- Raul Bennett- [phone] Sister Harvey Fernandez [phone] Sister Michelle Raza [phone] . Prognosis Ms Rodríguez is a 67 years old female with a past medical history CVA with residual aphasia, right hemiplegia and left hemiparesis, hypertension, Diabetes Mellitus- Type 2, anxiety disorder, bipolar disorder, osteoarthritis and insomnia. Patient was admitted from 05/20/17-05/29/17 and treated for an acute left frontoparietal CVA .She was discharged to a SNF [facility]. Patient was transported by EMS to the ER on 10/25/17 with a complaint of altered mental status. Patient was found slumped over after she had wheeled herself outside to smoke, and ecchymosis to right humerus and forearm. Clinical course complicated with evolving left hemisphere CVA, agitation, and delirium. Given ongoing comorbidities, patient remains at high risk for further complications, deterioration and decline. . Code Status: Full Code Plan PLAN: Legal decision maker: Patient has a history of stroke with expressive aphasia , agitation and altered mental status during this hospitalization. Patient is not able to participate in making her own medical decisions. Patient has an adult son who according to [place] Statute will serve as patient`s Health Care Proxy. Goals: Aggressive- case management following regarding placement CODE STATUS: Full Code SYMPTOMS: * Altered mental status:Multifactorial. History of bipolar disorder and CVA. Head CTA 10/27/17 revealed evolving CVA. Was on Haldol which was discontinued on . Patient is also on Valium 5mg BID.Patient on Seroquel 50mg BID. No recommendations. * Agitation: Multifactorial. History of bipolar disorder and CVA with expressive aphasia. Psychiatry consulted. On Seroquel 50mg BID. Seems to be compounded with inability to communicate her needs. No recommendations at this time. Patient is calm. * Physical deconditioning: Progressive. Patient has a history CVA with Residual Aphasia,Right Hemiplegia and Left Hemiparesis. During her admission in January 2017 patient weight 79.7kgs and on October 28, 2017 patient weighed 59.9kgs. Physical therapy consulted. Occupational therapy consulted and recommended OT at rehabilitation. Patient's participation is limited due to expressive aphasia, inability to comprehend complex commands, right hemiplegia and left hemiparesis. Speech therapy consulted, recommended speech therapy at rehabilitation. No recommendations at this time. Palliative care will continue to follow the patient during hospital course as condition evolves, to assist patient/decision-maker with understanding of their medical conditions, weighing benefits/burdens of treatment options, for clarification of goals of treatment. Additionally will assist with any symptoms of palliative concern (Susan Dawson) Attestation To help prompt me to consider important information that might be impacting today's encounter and assessment, information from prior notes written by myself or my colleagues may have been "brought forward" into today's note. My signature on this note, however, is an attestation that I personally performed the exam, history, and/or decision-making noted today, and, unless otherwise indicated, the interactions with patient, family, and staff as well as the review of records all occurred today. I also attest that the listed assessment and stated plan reflect my best clinical judgment today based on the combination of historical information, prior notes, and today's exam/ interactions. When time spent is documented, it refers only to time spent today by the signer, or if indicated, combined time spent today by collaborating physician/nurse practitioner. (Susan Dawson) Collaborating MD Comments Case discussed with palliative care GRILL COOK. Above JORDAN note reviewed and I concur. . (Mir Scanlon MD) Susan Dawson Nov 12, 2017 18:00 Mir Scanlon MD Dec 06, 2017 17:25
[2017-11-12 20:00] VITALS: BP 155/77; PULSE 67; RESP 18; TEMP 98.2; O2SAT 99
[2017-11-13] VITALS (12 sets, daily range): BP systolic 128–167; BP diastolic 58–71; PULSE 58–76; RESP 16–20; TEMP 97.5–98.9; O2SAT 94–98
[2017-11-13] MEDS: ACETAMINOPHEN/HYDROcodone 325 MG/10 MG TAB PO PRN ×2 (06:46→21:17)
[2017-11-13] MEDS: VANCOMYCIN 500 MG VIAL (FOR ORAL USE ONLY) PO SCH ×4 (06:46→23:31)
[2017-11-13] MEDS: QUEtiapine FUMARATE 25 MG TAB PO SCH ×2 (08:06→12:04)
[2017-11-13] MEDS: levETIRAcetam 500 MG TAB PO SCH ×2 (08:06→21:12)
[2017-11-13] MEDS: CARVEDILOL 3.125 MG TAB PO SCH ×2 (08:06→21:12)
[2017-11-13] MEDS: LACTOBACILLUS ACIDOPHILUS TAB PO SCH ×3 (08:06→16:23)
[2017-11-13] MEDS: LISINOPRIL 5 MG TAB PO SCH ×2 (08:06→21:12)
[2017-11-13] MEDS: DOCUSATE SODIUM 50 MG/SENNA 8.6 MG TAB PO SCH ×2 (08:06→21:00)
[2017-11-13] MEDS: ATORVASTATIN 10 MG TAB PO SCH (08:06)
[2017-11-13] MEDS: DIAZEPAM 5 MG TAB PO SCH ×2 (08:06→21:12)
[2017-11-13] MEDS: SODIUM CHLORIDE 0.9% FLUSH 10 ML FLUSH IV FLUSH SCH ×2 (08:07→21:12)
[2017-11-13 08:19] LABS: INTERNATIONAL NORMALIZED RATIO 2.4 RATIO; PROTHROMBIN TIME - PATIENT 23.9 SEC (9.8-11.6)
--- NOTE | 2017-11-13 13:46 | HHI.PR ---
Subjective Remarks Follow up CVA, C. difficile. Still awaiting SNF placement. No change per nursing. Objective Vitals Vital Signs Date Time Temp Pulse Resp B/P (MAP) Pulse Ox O2 Delivery O2 Flow Rate FiO2 11/13/17 12:12 97.6 67 20 128/58 (81) 96 11/13/17 08:58 98.5 71 20 163/71 (101) 94 11/13/17 08:02 18 11/13/17 08:00 72 11/13/17 06:31 98.9 76 19 142/65 (90) 96 11/13/17 01:26 60 11/13/17 00:00 98.2 58 18 150/65 (93) 98 11/12/17 20:00 98.2 67 18 155/77 (103) 99 11/12/17 16:00 97.4 68 18 163/70 (101) 100 I/O 11/12/17 11/12/17 11/12/17 11/13/17 11/13/17 11/13/17 07:00 15:00 23:00 07:00 15:00 23:00 # Voids 2 1 1 Imaging Last Impressions Chest X-Ray 11/04/17 0000 Signed Impressions: Service Date/Time: Saturday, November 04, 2017 09:26 - CONCLUSION: No acute cardiopulmonary findings identified. Known fracture of the proximal right humerus. Nikolas Stewart MD Neck CTA 10/27/17 0000 Signed Impressions: Service Date/Time: Friday, October 27, 2017 17:42 - CONCLUSION: 1. Occluded left internal carotid artery 2. Mild narrowing at the origin of the right internal carotid artery measuring 30%%. 3. Patent vertebral arteries with good flow. Price Cee MD Head CTA 10/27/17 0000 Signed Impressions: Service Date/Time: Friday, October 27, 2017 17:42 - CONCLUSION: 1. Occluded intracranial segment of the left internal carotid artery. 2. Very scant flow in the left middle cerebral artery distribution with proximal MCA occlusion. 3. Evolving large left MCA infarct. Price Cee MD Head CT 10/27/17 0000 Signed Impressions: Service Date/Time: Friday, October 27, 2017 17:34 - CONCLUSION: 1. No evidence of acute right-sided infarction. Cystic encephalomalacia involving the left middle cerebral artery distribution unchanged 2. Pansinusitis Soren Rose MD Carotid Artery Ultrasound 10/27/17 0000 Signed Impressions: Service Date/Time: Friday, October 27, 2017 16:16 - CONCLUSION: 1. Findings of left carotid occlusion. CT angiography of the carotid arteries the brain is recommended for further evaluation Soren Rose MD Brain MRI 10/26/17 0000 Signed Impressions: Service Date/Time: Thursday, October 26, 2017 16:34 - CONCLUSION: Cystic encephalomalacia involving large left middle cerebral artery ischemic infarction. There is a small focus of restricted diffusion in the posterior left frontal region without hemorrhage characteristic of extension of the infarct. Pansinusitis Soren Rose MD Radius/Ulna X-Ray 10/25/17 0000 Signed Impressions: Service Date/Time: Wednesday, October 25, 2017 20:03 - CONCLUSION: 1. No acute fracture or dislocation. No bony destructive changes. Carlton Early MD Humerus X-Ray 10/25/17 0000 Signed Impressions: Service Date/Time: Wednesday, October 25, 2017 20:09 - CONCLUSION: 1. Subacute right humeral neck fracture with Callus formation. No significant change in displacement compared with September 30. Carlton Early MD Objective Remarks General: Elderly female in no acute distress. Heart: Regular rate and rhythm. No murmur. Lungs: Clear to auscultation bilaterally. No wheezes, rales, or rhonchi. Breathing is nonlabored. Abdomen: Soft, nontender, nondistended. Extremities: No lower extremity edema. Psych: Somewhat lethargic. She awakens to voice, but falls asleep. Procedures none Urinary Catheter: No Vascular Central Line Catheter: No A/P Problem List: (1) Encephalopathy ICD Code: G93.40 - Encephalopathy, unspecified (2) CVA (cerebral vascular accident) ICD Code: I63.9 - Cerebral infarction, unspecified (3) HTN (hypertension) ICD Code: I10 - Essential (primary) hypertension (4) Tobacco abuse ICD Code: Z72.0 - Tobacco use Assessment and Plan 11/13/17: No change. Continue Coumadin. INR is therapeutic. Continue PT/OT. Continue vancomycin, Flagyl. 1. Extension of left hemisphere CVA: Appreciate neurology recommendations. Continue Coumadin. INR is therapeutic. Continue PT/OT. Patient continues to have severe expressive aphasia as well as right-sided weakness. Injury is extensive, long-term prognosis for significant recovery is poor. Speech therapy signed off. 2. Seizure: Continue Keppra. 3. Hypertension: Continue JAYLEN inhibitor, beta evonne. Vasotec as needed. 4. C. difficile colitis: Appreciate infectious disease recommendations. Continue vancomycin and Flagyl. 5. Bipolar disorder, agitation: Continue Seroquel. 6. Cardiomyopathy: Continue beta evonne, JAYLEN inhibitor. 7. DVT prophylaxis: Heparin. Discharge Planning Discharge to SNF when arrangements are made. Aniceto Reardon MD Nov 13, 2017 13:46
--- NOTE | 2017-11-13 13:49 | HHI.DCPOC ---
Discharge Care Plan Diagnosis: (1) Physical deconditioning (2) Delirium due to another medical condition (3) CVA (cerebral vascular accident) (4) HTN (hypertension) Goals to Promote Your Health * To prevent worsening of your condition and complications * To maintain your health at the optimal level Directions to Meet Your Goals Take your medications as prescribed Follow your dietary instruction Follow activity as directed Keep your appointments as scheduled Take your immunizations and boosters as scheduled If your symptoms worsen call your PCP, if no PCP go to Urgent Care Center or Emergency Room Smoking is Dangerous to Your Health. Avoid second hand smoke Call the 24-hour hour crisis hotline for domestic abuse at Aniceto Reardon MD Nov 13, 2017 13:49
[2017-11-13] MEDS: WARFARIN SOD 2.5 MG TAB PO SCH (16:23)
[2017-11-14] VITALS (7 sets, daily range): BP systolic 123–154; BP diastolic 57–67; PULSE 74–88; RESP 16–20; TEMP 97.2–98.5; O2SAT 93–98
[2017-11-14] MEDS: VANCOMYCIN 500 MG VIAL (FOR ORAL USE ONLY) PO SCH ×3 (05:34→16:30)
[2017-11-14] MEDS: LACTOBACILLUS ACIDOPHILUS TAB PO SCH ×3 (07:39→16:30)
[2017-11-14] MEDS: QUEtiapine FUMARATE 25 MG TAB PO SCH ×2 (07:40→11:33)
[2017-11-14] MEDS: LISINOPRIL 5 MG TAB PO SCH ×2 (07:40→20:34)
[2017-11-14] MEDS: DOCUSATE SODIUM 50 MG/SENNA 8.6 MG TAB PO SCH ×2 (07:40→20:36)
[2017-11-14] MEDS: CARVEDILOL 3.125 MG TAB PO SCH ×2 (07:40→20:34)
[2017-11-14] MEDS: levETIRAcetam 500 MG TAB PO SCH ×2 (07:40→20:36)
[2017-11-14] MEDS: DIAZEPAM 5 MG TAB PO SCH ×2 (07:40→20:33)
[2017-11-14] MEDS: SODIUM CHLORIDE 0.9% FLUSH 10 ML FLUSH IV FLUSH SCH ×2 (07:41→20:38)
[2017-11-14] MEDS: ATORVASTATIN 10 MG TAB PO SCH (07:41)
--- NOTE | 2017-11-14 13:00 | HHI.PR ---
Subjective Remarks Follow up CVA, C. difficile. No change per nursing. Awaiting SNF placement. Objective Vitals Vital Signs Date Time Temp Pulse Resp B/P (MAP) Pulse Ox O2 Delivery O2 Flow Rate FiO2 11/14/17 08:29 97.6 79 20 152/67 (95) 93 11/14/17 08:00 84 11/14/17 04:10 98.5 78 16 146/65 (92) 98 11/14/17 00:58 74 11/13/17 23:37 97.7 72 16 135/63 (87) 97 11/13/17 19:48 97.5 73 19 167/65 (99) 98 11/13/17 16:38 97.8 72 20 144/65 (91) 97 11/13/17 16:00 71 11/13/17 13:34 73 I/O 11/13/17 11/13/17 11/13/17 11/14/17 11/14/17 11/14/17 07:00 15:00 23:00 07:00 15:00 23:00 Intake Total 480 ml Balance 480 ml Intake Oral 480 ml # Voids 1 3 1 # Bowel Movements 0 2 Imaging Last Impressions Chest X-Ray 11/04/17 0000 Signed Impressions: Service Date/Time: Saturday, November 04, 2017 09:26 - CONCLUSION: No acute cardiopulmonary findings identified. Known fracture of the proximal right humerus. Nikolas Stewart MD Neck CTA 10/27/17 0000 Signed Impressions: Service Date/Time: Friday, October 27, 2017 17:42 - CONCLUSION: 1. Occluded left internal carotid artery 2. Mild narrowing at the origin of the right internal carotid artery measuring 30%%. 3. Patent vertebral arteries with good flow. Price Cee MD Head CTA 10/27/17 0000 Signed Impressions: Service Date/Time: Friday, October 27, 2017 17:42 - CONCLUSION: 1. Occluded intracranial segment of the left internal carotid artery. 2. Very scant flow in the left middle cerebral artery distribution with proximal MCA occlusion. 3. Evolving large left MCA infarct. Price Cee MD Head CT 10/27/17 0000 Signed Impressions: Service Date/Time: Friday, October 27, 2017 17:34 - CONCLUSION: 1. No evidence of acute right-sided infarction. Cystic encephalomalacia involving the left middle cerebral artery distribution unchanged 2. Pansinusitis Soren Rose MD Carotid Artery Ultrasound 10/27/17 0000 Signed Impressions: Service Date/Time: Friday, October 27, 2017 16:16 - CONCLUSION: 1. Findings of left carotid occlusion. CT angiography of the carotid arteries the brain is recommended for further evaluation Soren Rose MD Brain MRI 10/26/17 0000 Signed Impressions: Service Date/Time: Thursday, October 26, 2017 16:34 - CONCLUSION: Cystic encephalomalacia involving large left middle cerebral artery ischemic infarction. There is a small focus of restricted diffusion in the posterior left frontal region without hemorrhage characteristic of extension of the infarct. Pansinusitis Soren Rose MD Radius/Ulna X-Ray 10/25/17 0000 Signed Impressions: Service Date/Time: Wednesday, October 25, 2017 20:03 - CONCLUSION: 1. No acute fracture or dislocation. No bony destructive changes. Carlton Early MD Humerus X-Ray 10/25/17 0000 Signed Impressions: Service Date/Time: Wednesday, October 25, 2017 20:09 - CONCLUSION: 1. Subacute right humeral neck fracture with Callus formation. No significant change in displacement compared with September 30. Carlton Early MD Objective Remarks General: Elderly female in no acute distress. Heart: Regular rate and rhythm. No murmur. Lungs: Clear to auscultation bilaterally. No wheezes, rales, or rhonchi. Breathing is nonlabored. Abdomen: Soft, nontender, nondistended. Extremities: No lower extremity edema. Psych: Somewhat lethargic. She awakens to voice, but falls asleep. Procedures none Urinary Catheter: No Vascular Central Line Catheter: No A/P Problem List: (1) Encephalopathy ICD Code: G93.40 - Encephalopathy, unspecified (2) CVA (cerebral vascular accident) ICD Code: I63.9 - Cerebral infarction, unspecified (3) HTN (hypertension) ICD Code: I10 - Essential (primary) hypertension (4) Tobacco abuse ICD Code: Z72.0 - Tobacco use Assessment and Plan 11/14/17: No change. Continue Coumadin. INR is therapeutic. Continue PT/OT. Continue vancomycin. 1. Extension of left hemisphere CVA: Appreciate neurology recommendations. Continue Coumadin. INR is therapeutic. Continue PT/OT. Patient continues to have severe expressive aphasia as well as right-sided weakness. Injury is extensive, long-term prognosis for significant recovery is poor. Speech therapy signed off. 2. Seizure: Continue Keppra. 3. Hypertension: Continue JAYLEN inhibitor, beta evonne. Vasotec as needed. 4. C. difficile colitis: Appreciate infectious disease recommendations. Continue vancomycin. 5. Bipolar disorder, agitation: Continue Seroquel. 6. Cardiomyopathy: Continue beta evonne, JAYLEN inhibitor. 7. DVT prophylaxis: Heparin. Discharge Planning Discharge to SNF when arrangements are made. Aniceto Reardon MD Nov 14, 2017 13:00
--- NOTE | 2017-11-14 16:08 | HHI.HCPN ---
Reason for visit a. To assist with evaluation and management of symptoms including: Altered mental status,physical deconditioning b. To assist medical decision maker(s) with: better understanding of current medical conditions; weighing benefits/burdens of medical treatment options; making medical treatment decisions. (Susan Dawson) Subjective/Interval History Patient seen and examined in her room, on 5 N. Patient alert, able to say her name otherwise has expressive aphasia. Follows command with LUE and LLE. Right side is flaccid and patient has a sling to RUE. Patient denies pain a this time. Patient appears calm, no agitation noted. Patient was out of bed to a stretcher chair earlier on today with the assistance of physical therapy and she tolerated sitting up for approximately 40 minutes. Vital signs stable. Patient consuming 0-25 % of her meals. PT and OT following with patient. Laboratory: 11/07/17 WBC 6.4, Hgb 11.5, Hct 33.9, Plt count 234, Potassium 3.3 , BUN/Creat 10/0.63, Total protein 6.1, albumin 2.6. 11/13/17 PT 23.9, INR 2.4 Case discussed with Case management. . Family/friend interactions No family at bedside. . (Susan Dawson) Advance Directives Living Will: Never completed Health Care Surrogate: Never completed Durable Power of Estate Manager: Never completed (Susan Dawson) Advance Directive Specifics Health Care Surrogate(s): Health Care Proxy- Alia Bennett, Raul- [phone] . (Susan Dawson) Objective Vital Signs Date Time Temp Pulse Resp B/P (MAP) Pulse Ox O2 Delivery O2 Flow Rate FiO2 11/14/17 12:00 88 11/14/17 12:00 97.8 79 20 123/57 (79) 96 11/14/17 08:29 97.6 79 20 152/67 (95) 93 11/14/17 08:00 84 11/14/17 04:10 98.5 78 16 146/65 (92) 98 11/14/17 00:58 74 11/13/17 23:37 97.7 72 16 135/63 (87) 97 11/13/17 19:48 97.5 73 19 167/65 (99) 98 11/13/17 16:38 97.8 72 20 144/65 (91) 97 11/13/17 16:00 71 Intake & Output 11/14/17 11/14/17 06:59 18:59 # Voids 1 # Bowel Movements 2 Physical Exam CONSTITUTIONAL/GENERAL: This is an adequately nourished patient, in no apparent distress. TUBES/LINES/DRAINS: PIV SKIN: No jaundice, rashes, or lesions. Ecchymoses on upper extremities. No wounds seen anteriorly. Skin temperature appropriate. Not diaphoretic. HEAD: Atraumatic. Normocephalic. EYES: Pupils equal and round and reactive. Extraocular motions intact. No scleral icterus. No injection or drainage. Fundi not examined. ENT: Hearing grossly normal. Nose without bleeding or purulent drainage. Moist oral mucosa. NECK: Trachea midline. Supple, nontender. CARDIOVASCULAR: Regular rate and rhythm without murmurs, gallops, or rubs. No JVD. Peripheral pulses symmetric. RESPIRATORY/CHEST: Symmetric, unlabored respirations. Clear to auscultation. Breath sounds equal bilaterally. No wheezes, rales, or rhonchi. GASTROINTESTINAL: Abdomen soft, non-tender, nondistended. No guarding. Bowel sounds present. GENITOURINARY: Without palpable bladder distension. MUSCULOSKELETAL: Extremities without clubbing, cyanosis, or edema. No joint tenderness or effusion noted. No calf tenderness. No mottling or clubbing. NEUROLOGICAL:Awake, alert with expressive aphasia. flaccid to right side. Follows simple commands with LUE and LLE. PSYCHIATRIC: Currently awake ad calm.No obvious anxiety/depression. no apparent hallucinations or other psychotic thought process. . (Susan Dawson) Diagnostic Tests Laboratory Laboratory Tests Test 11/12/17 07:18 11/13/17 07:39 Prothrombin Time 25.1 SEC (9.8-11.6) 23.9 SEC (9.8-11.6) Prothromb Time International Ratio 2.5 RATIO 2.4 RATIO (Susan Dawson) Assessment and Plan Disease Oriented Problem List: (1) CVA (cerebral vascular accident) (2) HTN (hypertension) (3) Encephalopathy (4) Tobacco abuse Symptom Scale: (1) Altered mental status 0-10 Scale: Unable to quantify Comment: Multifactorial. History of bipolar disorder and CVA . (2) Physical deconditioning 0-10 Scale: Unable to quantify Comment: Progressive. . Pertinent Non-Medical Issues Psychosocial:Patient was born in [facility]. She is . Patient graduated from college and is a bachelor's degree in education. 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 Spiritual:Patient is [place] Legal: Patient does not have advanced directives. Ethical issues impacting care: None identified at this time. . Important Contacts Son- Raul Bennett- [phone] Sister Harvey Fernandez [phone] Sister Michelle Raza [phone] . Prognosis Ms Rodríguez is a 67 years old female with a past medical history CVA with residual aphasia, right hemiplegia and left hemiparesis, hypertension, Diabetes Mellitus- Type 2, anxiety disorder, bipolar disorder, osteoarthritis and insomnia. Patient was admitted from 05/20/17-05/29/17 and treated for an acute left frontoparietal CVA .She was discharged to a SNF [facility]. Patient was transported by EMS to the ER on 10/25/17 with a complaint of altered mental status. Patient was found slumped over after she had wheeled herself outside to smoke, and ecchymosis to right humerus and forearm. Clinical course complicated with evolving left hemisphere CVA, agitation, and delirium. Given ongoing comorbidities, patient remains at high risk for further complications, deterioration and decline. . Code Status: Full Code Plan PLAN: Legal decision maker: Patient has a history of stroke with expressive aphasia , agitation and altered mental status during this hospitalization. Patient is not able to participate in making her own medical decisions. Patient has an adult son who according to [place] Statute will serve as patient`s Health Care Proxy. Goals: Aggressive- case management following regarding placement CODE STATUS: Full Code SYMPTOMS: * Altered mental status:Multifactorial. History of bipolar disorder and CVA. Head CTA 10/27/17 revealed evolving CVA. Was on Haldol which was discontinued on . Patient is also on Valium 5mg BID.Patient on Seroquel 50mg BID. No recommendations. * Agitation: Multifactorial. History of bipolar disorder and CVA with expressive aphasia. Psychiatry consulted. On Seroquel 50mg BID. Seems to be compounded with inability to communicate her needs. No recommendations at this time. Patient is calm. Resolved. * Physical deconditioning: Progressive. Patient has a history CVA with Residual Aphasia,Right Hemiplegia and Left Hemiparesis. During her admission in January 2017 patient weight 79.7kgs and on October 28, 2017 patient weighed 59.9kgs. Physical therapy consulted. Occupational therapy consulted and recommended OT at rehabilitation. Patient's participation is limited due to expressive aphasia, inability to comprehend complex commands, right hemiplegia and left hemiparesis. Speech therapy consulted, recommended speech therapy at rehabilitation. No recommendations at this time. Palliative care will continue to follow the patient during hospital course as condition evolves, to assist patient/decision-maker with understanding of their medical conditions, weighing benefits/burdens of treatment options, for clarification of goals of treatment. Additionally will assist with any symptoms of palliative concern (Susan Dawson) Attestation To help prompt me to consider important information that might be impacting today's encounter and assessment, information from prior notes written by myself or my colleagues may have been "brought forward" into today's note. My signature on this note, however, is an attestation that I personally performed the exam, history, and/or decision-making noted today, and, unless otherwise indicated, the interactions with patient, family, and staff as well as the review of records all occurred today. I also attest that the listed assessment and stated plan reflect my best clinical judgment today based on the combination of historical information, prior notes, and today's exam/ interactions. When time spent is documented, it refers only to time spent today by the signer, or if indicated, combined time spent today by collaborating physician/nurse practitioner. (Susan Dawson) Collaborating MD Comments Case discussed with palliative care HE[employer] PU[employer] INSTALLER. Above JORDAN note reviewed and I concur. . (Mir Scanlon MD) Susan Dawson Nov 14, 2017 16:08 Mir Scanlon MD Dec 06, 2017 17:37
[2017-11-14] MEDS: WARFARIN SOD 2.5 MG TAB PO SCH (16:31)
[2017-11-14] MEDS: ACETAMINOPHEN/HYDROcodone 325 MG/10 MG TAB PO PRN (20:33)
[2017-11-15] VITALS (11 sets, daily range): BP systolic 106–148; BP diastolic 58–69; PULSE 59–86; RESP 17–18; TEMP 98–98.9; O2SAT 94–98
[2017-11-15] MEDS: VANCOMYCIN 500 MG VIAL (FOR ORAL USE ONLY) PO SCH ×4 (00:49→16:32)
[2017-11-15 08:22] LABS: INTERNATIONAL NORMALIZED RATIO 2.7 RATIO
[2017-11-15] MEDS: DOCUSATE SODIUM 50 MG/SENNA 8.6 MG TAB PO SCH ×2 (09:00→21:24)
[2017-11-15] MEDS: QUEtiapine FUMARATE 25 MG TAB PO SCH ×2 (09:39→12:03)
[2017-11-15] MEDS: levETIRAcetam 500 MG TAB PO SCH ×2 (09:40→21:28)
[2017-11-15] MEDS: LACTOBACILLUS ACIDOPHILUS TAB PO SCH ×3 (09:40→16:32)
[2017-11-15] MEDS: CARVEDILOL 3.125 MG TAB PO SCH ×2 (09:40→21:33)
[2017-11-15] MEDS: LISINOPRIL 5 MG TAB PO SCH ×2 (09:40→21:33)
[2017-11-15] MEDS: ATORVASTATIN 10 MG TAB PO SCH (09:40)
[2017-11-15] MEDS: DIAZEPAM 5 MG TAB PO SCH ×2 (09:40→21:25)
[2017-11-15] MEDS: SODIUM CHLORIDE 0.9% FLUSH 10 ML FLUSH IV FLUSH SCH ×2 (09:41→21:33)
--- NOTE | 2017-11-15 11:19 | HHI.PR ---
Subjective Remarks Follow up CVA, C. difficile. No events per nursing. Objective Vitals Vital Signs Date Time Temp Pulse Resp B/P (MAP) Pulse Ox O2 Delivery O2 Flow Rate FiO2 11/15/17 08:00 74 11/15/17 07:59 98.9 73 18 148/69 (95) 94 11/15/17 04:48 98.1 79 17 129/58 (81) 98 11/15/17 03:51 59 11/15/17 01:24 74 11/15/17 00:00 98.0 70 18 146/66 (92) 98 11/14/17 20:00 97.3 80 18 133/60 (84) 98 11/14/17 16:00 97.2 80 20 154/66 (95) 98 11/14/17 16:00 75 11/14/17 12:00 88 11/14/17 12:00 97.8 79 20 123/57 (79) 96 I/O 11/14/17 11/14/17 11/14/17 11/15/17 11/15/17 11/15/17 07:00 15:00 23:00 07:00 15:00 23:00 Intake Total 480 ml 240 ml Balance 480 ml 240 ml Intake Oral 480 ml 240 ml # Voids 3 3 # Bowel Movements 2 1 Imaging Last Impressions Chest X-Ray 11/04/17 0000 Signed Impressions: Service Date/Time: Saturday, November 04, 2017 09:26 - CONCLUSION: No acute cardiopulmonary findings identified. Known fracture of the proximal right humerus. Nikolas Stewart MD Neck CTA 10/27/17 0000 Signed Impressions: Service Date/Time: Friday, October 27, 2017 17:42 - CONCLUSION: 1. Occluded left internal carotid artery 2. Mild narrowing at the origin of the right internal carotid artery measuring 30%%. 3. Patent vertebral arteries with good flow. Price Cee MD Head CTA 10/27/17 0000 Signed Impressions: Service Date/Time: Friday, October 27, 2017 17:42 - CONCLUSION: 1. Occluded intracranial segment of the left internal carotid artery. 2. Very scant flow in the left middle cerebral artery distribution with proximal MCA occlusion. 3. Evolving large left MCA infarct. Price Cee MD Head CT 10/27/17 0000 Signed Impressions: Service Date/Time: Friday, October 27, 2017 17:34 - CONCLUSION: 1. No evidence of acute right-sided infarction. Cystic encephalomalacia involving the left middle cerebral artery distribution unchanged 2. Pansinusitis Soren Rose MD Carotid Artery Ultrasound 10/27/17 0000 Signed Impressions: Service Date/Time: Friday, October 27, 2017 16:16 - CONCLUSION: 1. Findings of left carotid occlusion. CT angiography of the carotid arteries the brain is recommended for further evaluation Soren Rose MD Brain MRI 10/26/17 0000 Signed Impressions: Service Date/Time: Thursday, October 26, 2017 16:34 - CONCLUSION: Cystic encephalomalacia involving large left middle cerebral artery ischemic infarction. There is a small focus of restricted diffusion in the posterior left frontal region without hemorrhage characteristic of extension of the infarct. Pansinusitis Soren Rose MD Radius/Ulna X-Ray 10/25/17 0000 Signed Impressions: Service Date/Time: Wednesday, October 25, 2017 20:03 - CONCLUSION: 1. No acute fracture or dislocation. No bony destructive changes. Carlton Early MD Humerus X-Ray 10/25/17 0000 Signed Impressions: Service Date/Time: Wednesday, October 25, 2017 20:09 - CONCLUSION: 1. Subacute right humeral neck fracture with Callus formation. No significant change in displacement compared with September 30. Carlton Early MD Objective Remarks General: Elderly female in no acute distress. Heart: Regular rate and rhythm. No murmur. Lungs: Clear to auscultation bilaterally. No wheezes, rales, or rhonchi. Breathing is nonlabored. Abdomen: Soft, nontender, nondistended. Extremities: No lower extremity edema. Psych: Alert. Procedures none Urinary Catheter: No Vascular Central Line Catheter: No A/P Problem List: (1) Encephalopathy ICD Code: G93.40 - Encephalopathy, unspecified (2) CVA (cerebral vascular accident) ICD Code: I63.9 - Cerebral infarction, unspecified (3) HTN (hypertension) ICD Code: I10 - Essential (primary) hypertension (4) Tobacco abuse ICD Code: Z72.0 - Tobacco use Assessment and Plan 11/15/17: No change. Continue Coumadin. INR is therapeutic. Continue PT/OT. Continue vancomycin. 1. Extension of left hemisphere CVA: Appreciate neurology recommendations. Continue Coumadin. INR is therapeutic. Continue PT/OT. Patient continues to have severe expressive aphasia as well as right-sided weakness. Injury is extensive, long-term prognosis for significant recovery is poor. Speech therapy signed off. 2. Seizure: Continue Keppra. 3. Hypertension: Continue JAYLEN inhibitor, beta evonne. Vasotec as needed. 4. C. difficile colitis: Appreciate infectious disease recommendations. Continue vancomycin. 5. Bipolar disorder, agitation: Continue Seroquel. 6. Cardiomyopathy: Continue beta evonne, JAYLEN inhibitor. 7. DVT prophylaxis: Heparin. Discharge Planning Discharge to SNF when arrangements are made. Aniceto Reardon MD Nov 15, 2017 11:19
[2017-11-15] MEDS: ACETAMINOPHEN/HYDROcodone 325 MG/10 MG TAB PO PRN (21:23)
[2017-11-16] VITALS (7 sets, daily range): BP systolic 103–174; BP diastolic 56–72; PULSE 70–86; RESP 17–19; TEMP 96.4–98.1; O2SAT 96–98
[2017-11-16] MEDS: VANCOMYCIN 500 MG VIAL (FOR ORAL USE ONLY) PO SCH ×4 (00:51→17:05)
[2017-11-16] MEDS: ATORVASTATIN 10 MG TAB PO SCH (09:10)
[2017-11-16] MEDS: levETIRAcetam 500 MG TAB PO SCH ×2 (09:10→22:45)
[2017-11-16] MEDS: LACTOBACILLUS ACIDOPHILUS TAB PO SCH ×3 (09:10→17:05)
[2017-11-16] MEDS: DOCUSATE SODIUM 50 MG/SENNA 8.6 MG TAB PO SCH ×2 (09:10→22:44)
[2017-11-16] MEDS: LISINOPRIL 5 MG TAB PO SCH ×2 (09:10→21:00)
[2017-11-16] MEDS: ACETAMINOPHEN/HYDROcodone 325 MG/10 MG TAB PO PRN (09:11)
[2017-11-16] MEDS: QUEtiapine FUMARATE 25 MG TAB PO SCH ×2 (09:11→12:35)
[2017-11-16] MEDS: CARVEDILOL 3.125 MG TAB PO SCH ×2 (09:11→22:43)
[2017-11-16] MEDS: SODIUM CHLORIDE 0.9% FLUSH 10 ML FLUSH IV FLUSH SCH ×2 (09:11→22:51)
[2017-11-16] MEDS: DIAZEPAM 5 MG TAB PO SCH ×2 (09:11→22:45)
--- NOTE | 2017-11-16 12:50 | HHI.PR ---
Subjective Remarks Follow up CVA, C. difficile. Patient is more alert today. Speech is improving slowly. Patient now refusing her medications. Objective Vitals Vital Signs Date Time Temp Pulse Resp B/P (MAP) Pulse Ox O2 Delivery O2 Flow Rate FiO2 11/16/17 08:00 97.2 84 18 174/72 (106) 96 11/16/17 08:00 72 11/16/17 05:28 98.1 86 17 124/71 (88) 96 11/16/17 02:48 75 11/16/17 00:30 98.0 78 17 136/72 (93) 96 11/15/17 23:36 73 11/15/17 20:50 98.3 67 17 125/62 (83) 96 11/15/17 16:21 98.9 66 18 127/59 (81) 96 I/O 11/15/17 11/15/17 11/15/17 11/16/17 11/16/17 11/16/17 07:00 15:00 23:00 07:00 15:00 23:00 Intake Total 240 ml 240 ml Balance 240 ml 240 ml Intake Oral 240 ml 240 ml # Voids 3 3 # Bowel Movements 1 1 Imaging Last Impressions Chest X-Ray 11/04/17 0000 Signed Impressions: Service Date/Time: Saturday, November 04, 2017 09:26 - CONCLUSION: No acute cardiopulmonary findings identified. Known fracture of the proximal right humerus. Nikolas Stewart MD Neck CTA 10/27/17 0000 Signed Impressions: Service Date/Time: Friday, October 27, 2017 17:42 - CONCLUSION: 1. Occluded left internal carotid artery 2. Mild narrowing at the origin of the right internal carotid artery measuring 30%%. 3. Patent vertebral arteries with good flow. Price Cee MD Head CTA 10/27/17 0000 Signed Impressions: Service Date/Time: Friday, October 27, 2017 17:42 - CONCLUSION: 1. Occluded intracranial segment of the left internal carotid artery. 2. Very scant flow in the left middle cerebral artery distribution with proximal MCA occlusion. 3. Evolving large left MCA infarct. Price Cee MD Head CT 10/27/17 0000 Signed Impressions: Service Date/Time: Friday, October 27, 2017 17:34 - CONCLUSION: 1. No evidence of acute right-sided infarction. Cystic encephalomalacia involving the left middle cerebral artery distribution unchanged 2. Pansinusitis Soren Rose MD Carotid Artery Ultrasound 10/27/17 0000 Signed Impressions: Service Date/Time: Friday, October 27, 2017 16:16 - CONCLUSION: 1. Findings of left carotid occlusion. CT angiography of the carotid arteries the brain is recommended for further evaluation Soren Rose MD Brain MRI 10/26/17 0000 Signed Impressions: Service Date/Time: Thursday, October 26, 2017 16:34 - CONCLUSION: Cystic encephalomalacia involving large left middle cerebral artery ischemic infarction. There is a small focus of restricted diffusion in the posterior left frontal region without hemorrhage characteristic of extension of the infarct. Pansinusitis Soren Rose MD Radius/Ulna X-Ray 10/25/17 0000 Signed Impressions: Service Date/Time: Wednesday, October 25, 2017 20:03 - CONCLUSION: 1. No acute fracture or dislocation. No bony destructive changes. Carlton Early MD Humerus X-Ray 10/25/17 0000 Signed Impressions: Service Date/Time: Wednesday, October 25, 2017 20:09 - CONCLUSION: 1. Subacute right humeral neck fracture with Callus formation. No significant change in displacement compared with September 30. Carlton Early MD Objective Remarks General: Elderly female in no acute distress. Heart: Regular rate and rhythm. No murmur. Lungs: Clear to auscultation bilaterally. No wheezes, rales, or rhonchi. Breathing is nonlabored. Abdomen: Soft, nontender, nondistended. Extremities: No lower extremity edema. Psych: Alert, confused. Expressive aphasia. Procedures none Urinary Catheter: No Vascular Central Line Catheter: No A/P Problem List: (1) Encephalopathy ICD Code: G93.40 - Encephalopathy, unspecified (2) CVA (cerebral vascular accident) ICD Code: I63.9 - Cerebral infarction, unspecified (3) HTN (hypertension) ICD Code: I10 - Essential (primary) hypertension (4) Tobacco abuse ICD Code: Z72.0 - Tobacco use Assessment and Plan 11/16/17: No change. Continue Coumadin. INR is pending today. Continue PT/OT. Continue vancomycin. 1. Extension of left hemisphere CVA: Appreciate neurology recommendations. Continue Coumadin. INR is therapeutic. Continue PT/OT. Patient continues to have severe expressive aphasia as well as right-sided weakness. Injury is extensive, long-term prognosis for significant recovery is poor. Speech therapy signed off. 2. Seizure: Continue Keppra. 3. Hypertension: Continue JAYLEN inhibitor, beta evonne. Vasotec as needed. 4. C. difficile colitis: Hypervirulent strain. Appreciate infectious disease recommendations. Continue vancomycin. 5. Bipolar disorder, agitation: Continue Seroquel. 6. Cardiomyopathy: Continue beta evonne, JAYLEN inhibitor. 7. DVT prophylaxis: Heparin. Discharge Planning Discharge to SNF when arrangements are made. Aniceto Reardon MD Nov 16, 2017 12:50
[2017-11-16] MEDS: WARFARIN SOD 2.5 MG TAB PO SCH (17:05)
[2017-11-17] VITALS (7 sets, daily range): BP systolic 112–170; BP diastolic 63–74; PULSE 66–84; RESP 17–18; TEMP 96.1–98.3; O2SAT 97–99
[2017-11-17] MEDS: VANCOMYCIN 500 MG VIAL (FOR ORAL USE ONLY) PO SCH ×5 (00:12→17:21)
[2017-11-17] MEDS: ACETAMINOPHEN/HYDROcodone 325 MG/10 MG TAB PO PRN ×2 (00:21→10:02)
[2017-11-17] MEDS: CARVEDILOL 3.125 MG TAB PO SCH ×2 (09:00→22:08)
[2017-11-17] MEDS: DOCUSATE SODIUM 50 MG/SENNA 8.6 MG TAB PO SCH ×2 (10:01→22:07)
[2017-11-17] MEDS: levETIRAcetam 500 MG TAB PO SCH ×2 (10:01→22:08)
[2017-11-17] MEDS: ATORVASTATIN 10 MG TAB PO SCH (10:01)
[2017-11-17] MEDS: LACTOBACILLUS ACIDOPHILUS TAB PO SCH ×4 (10:02→17:21)
[2017-11-17] MEDS: QUEtiapine FUMARATE 25 MG TAB PO SCH ×2 (10:02→13:27)
[2017-11-17] MEDS: DIAZEPAM 5 MG TAB PO SCH ×2 (10:02→22:08)
[2017-11-17] MEDS: LISINOPRIL 5 MG TAB PO SCH ×2 (10:02→22:08)
[2017-11-17] MEDS: SODIUM CHLORIDE 0.9% FLUSH 10 ML FLUSH IV FLUSH SCH ×2 (10:03→21:00)
--- NOTE | 2017-11-17 10:58 | HHI.PR ---
Subjective Remarks Follow up CVA, C. difficile. Patient does not indicate any complaints at this time. She is awake. Does not respond verbally to questions. Objective Vitals Vital Signs Date Time Temp Pulse Resp B/P (MAP) Pulse Ox O2 Delivery O2 Flow Rate FiO2 11/17/17 08:00 96.8 66 18 138/65 (89) 97 11/17/17 08:00 75 11/17/17 04:00 97.1 77 18 140/70 (93) 97 11/17/17 00:00 97.4 75 18 170/74 (106) 98 11/16/17 20:00 97.3 70 19 135/63 (87) 97 11/16/17 16:00 97.2 70 18 103/56 (72) 98 11/16/17 12:00 96.4 74 18 122/58 (79) 98 I/O 11/16/17 11/16/17 11/16/17 11/17/17 11/17/17 11/17/17 07:00 15:00 23:00 07:00 15:00 23:00 Intake Total 240 ml Output Total 0 ml Balance 240 ml 0 ml Intake Oral 240 ml Stool Total 0 ml # Voids 3 2 2 # Bowel Movements 1 1 Imaging Last Impressions Chest X-Ray 11/04/17 0000 Signed Impressions: Service Date/Time: Saturday, November 04, 2017 09:26 - CONCLUSION: No acute cardiopulmonary findings identified. Known fracture of the proximal right humerus. Nikolas Stewart MD Neck CTA 10/27/17 0000 Signed Impressions: Service Date/Time: Friday, October 27, 2017 17:42 - CONCLUSION: 1. Occluded left internal carotid artery 2. Mild narrowing at the origin of the right internal carotid artery measuring 30%%. 3. Patent vertebral arteries with good flow. Price Cee MD Head CTA 10/27/17 0000 Signed Impressions: Service Date/Time: Friday, October 27, 2017 17:42 - CONCLUSION: 1. Occluded intracranial segment of the left internal carotid artery. 2. Very scant flow in the left middle cerebral artery distribution with proximal MCA occlusion. 3. Evolving large left MCA infarct. Price Cee MD Head CT 10/27/17 0000 Signed Impressions: Service Date/Time: Friday, October 27, 2017 17:34 - CONCLUSION: 1. No evidence of acute right-sided infarction. Cystic encephalomalacia involving the left middle cerebral artery distribution unchanged 2. Pansinusitis Soren Rose MD Carotid Artery Ultrasound 10/27/17 0000 Signed Impressions: Service Date/Time: Friday, October 27, 2017 16:16 - CONCLUSION: 1. Findings of left carotid occlusion. CT angiography of the carotid arteries the brain is recommended for further evaluation Soren Rose MD Brain MRI 10/26/17 0000 Signed Impressions: Service Date/Time: Thursday, October 26, 2017 16:34 - CONCLUSION: Cystic encephalomalacia involving large left middle cerebral artery ischemic infarction. There is a small focus of restricted diffusion in the posterior left frontal region without hemorrhage characteristic of extension of the infarct. Pansinusitis Soren Rose MD Radius/Ulna X-Ray 10/25/17 0000 Signed Impressions: Service Date/Time: Wednesday, October 25, 2017 20:03 - CONCLUSION: 1. No acute fracture or dislocation. No bony destructive changes. Carlton Early MD Humerus X-Ray 10/25/17 0000 Signed Impressions: Service Date/Time: Wednesday, October 25, 2017 20:09 - CONCLUSION: 1. Subacute right humeral neck fracture with Callus formation. No significant change in displacement compared with September 30. Carlton Early MD Objective Remarks General: Elderly female in no acute distress. Heart: Regular rate and rhythm. No murmur. Lungs: Clear to auscultation bilaterally. No wheezes, rales, or rhonchi. Breathing is nonlabored. Abdomen: Soft, nontender, nondistended. Extremities: No lower extremity edema. Psych: Alert, confused. Expressive aphasia. Procedures none Urinary Catheter: No Vascular Central Line Catheter: No A/P Problem List: (1) Encephalopathy ICD Code: G93.40 - Encephalopathy, unspecified (2) CVA (cerebral vascular accident) ICD Code: I63.9 - Cerebral infarction, unspecified (3) HTN (hypertension) ICD Code: I10 - Essential (primary) hypertension (4) Tobacco abuse ICD Code: Z72.0 - Tobacco use Assessment and Plan 11/17/17: No change. Continue Coumadin. INR is pending today. Continue PT/OT. Continue oral vancomycin. 1. Extension of left hemisphere CVA: Appreciate neurology recommendations. Continue Coumadin. INR is therapeutic. Continue PT/OT. Patient continues to have severe expressive aphasia as well as right-sided weakness. Injury is extensive, long-term prognosis for significant recovery is poor. Speech therapy signed off. 2. Seizure: Continue Keppra. 3. Hypertension: Continue JAYLEN inhibitor, beta evonne. Vasotec as needed. 4. C. difficile colitis: Hypervirulent strain. Appreciate infectious disease recommendations. Continue oral vancomycin. 5. Bipolar disorder, agitation: Continue Seroquel. 6. Cardiomyopathy: Continue beta evonne, JAYLEN inhibitor. 7. DVT prophylaxis: Heparin. Discharge Planning Discharge to SNF when arrangements are made. Aniceto Reardon MD Nov 17, 2017 10:58
[2017-11-17 12:59] LABS: PROTHROMBIN TIME - PATIENT 20.1 SEC (9.8-11.6)
[2017-11-17] MEDS: WARFARIN SOD 2.5 MG TAB PO SCH ×2 (17:12→17:21)
[2017-11-18] VITALS (7 sets, daily range): BP systolic 132–163; BP diastolic 58–81; PULSE 83–103; RESP 18–20; TEMP 97–98.3; O2SAT 94–99
[2017-11-18] MEDS: ACETAMINOPHEN/HYDROcodone 325 MG/10 MG TAB PO PRN ×2 (03:26→15:17)
[2017-11-18] MEDS: VANCOMYCIN 500 MG VIAL (FOR ORAL USE ONLY) PO SCH ×4 (06:00→17:47)
[2017-11-18] MEDS: QUEtiapine FUMARATE 25 MG TAB PO SCH ×2 (10:14→13:24)
[2017-11-18] MEDS: DIAZEPAM 5 MG TAB PO SCH ×2 (10:14→21:15)
[2017-11-18] MEDS: ATORVASTATIN 10 MG TAB PO SCH (10:14)
[2017-11-18] MEDS: levETIRAcetam 500 MG TAB PO SCH ×2 (10:15→21:15)
[2017-11-18] MEDS: LACTOBACILLUS ACIDOPHILUS TAB PO SCH ×3 (10:15→17:47)
[2017-11-18] MEDS: LISINOPRIL 5 MG TAB PO SCH ×2 (10:15→21:15)
[2017-11-18] MEDS: DOCUSATE SODIUM 50 MG/SENNA 8.6 MG TAB PO SCH ×2 (10:15→21:15)
[2017-11-18] MEDS: CARVEDILOL 3.125 MG TAB PO SCH ×2 (10:15→21:15)
--- NOTE | 2017-11-18 11:12 | HHI.PR ---
Subjective Remarks Follow up c difficile, CVA. Patient is more alert today. She denies pain. Objective Vitals Vital Signs Date Time Temp Pulse Resp B/P (MAP) Pulse Ox O2 Delivery O2 Flow Rate FiO2 11/18/17 08:27 98.3 103 20 155/70 (98) 98 11/18/17 04:00 97.8 88 18 163/63 (96) 99 11/18/17 00:00 97.8 90 18 138/67 (90) 94 11/17/17 20:00 98.3 79 17 166/67 (100) 98 11/17/17 16:00 96.3 84 18 112/74 (87) 99 11/17/17 12:20 82 11/17/17 12:00 96.1 79 18 139/63 (88) 98 I/O 11/17/17 11/17/17 11/17/17 11/18/17 11/18/17 11/18/17 06:59 14:59 22:59 06:59 14:59 22:59 Output Total 0 ml Balance 0 ml Stool Total 0 ml # Voids 2 3 1 # Bowel Movements 0 0 Imaging Last Impressions Chest X-Ray 11/04/17 0000 Signed Impressions: Service Date/Time: Saturday, November 04, 2017 09:26 - CONCLUSION: No acute cardiopulmonary findings identified. Known fracture of the proximal right humerus. Nikolas Stewart MD Neck CTA 10/27/17 0000 Signed Impressions: Service Date/Time: Friday, October 27, 2017 17:42 - CONCLUSION: 1. Occluded left internal carotid artery 2. Mild narrowing at the origin of the right internal carotid artery measuring 30%%. 3. Patent vertebral arteries with good flow. Price Cee MD Head CTA 10/27/17 0000 Signed Impressions: Service Date/Time: Friday, October 27, 2017 17:42 - CONCLUSION: 1. Occluded intracranial segment of the left internal carotid artery. 2. Very scant flow in the left middle cerebral artery distribution with proximal MCA occlusion. 3. Evolving large left MCA infarct. Price Cee MD Head CT 10/27/17 0000 Signed Impressions: Service Date/Time: Friday, October 27, 2017 17:34 - CONCLUSION: 1. No evidence of acute right-sided infarction. Cystic encephalomalacia involving the left middle cerebral artery distribution unchanged 2. Pansinusitis Soren Rose MD Carotid Artery Ultrasound 10/27/17 0000 Signed Impressions: Service Date/Time: Friday, October 27, 2017 16:16 - CONCLUSION: 1. Findings of left carotid occlusion. CT angiography of the carotid arteries the brain is recommended for further evaluation Soren Rose MD Brain MRI 10/26/17 0000 Signed Impressions: Service Date/Time: Thursday, October 26, 2017 16:34 - CONCLUSION: Cystic encephalomalacia involving large left middle cerebral artery ischemic infarction. There is a small focus of restricted diffusion in the posterior left frontal region without hemorrhage characteristic of extension of the infarct. Pansinusitis Soren Rose MD Radius/Ulna X-Ray 10/25/17 0000 Signed Impressions: Service Date/Time: Wednesday, October 25, 2017 20:03 - CONCLUSION: 1. No acute fracture or dislocation. No bony destructive changes. Carlton Early MD Humerus X-Ray 10/25/17 0000 Signed Impressions: Service Date/Time: Wednesday, October 25, 2017 20:09 - CONCLUSION: 1. Subacute right humeral neck fracture with Callus formation. No significant change in displacement compared with September 30. Carlton Early MD Objective Remarks General: Elderly female in no acute distress. Heart: Regular rate and rhythm. No murmur. Lungs: Clear to auscultation bilaterally. No wheezes, rales, or rhonchi. Breathing is nonlabored. Abdomen: Soft, nontender, nondistended. Extremities: No lower extremity edema. Psych: Alert, confused. Expressive aphasia. Procedures none Urinary Catheter: No Vascular Central Line Catheter: No A/P Problem List: (1) Encephalopathy ICD Code: G93.40 - Encephalopathy, unspecified (2) CVA (cerebral vascular accident) ICD Code: I63.9 - Cerebral infarction, unspecified (3) HTN (hypertension) ICD Code: I10 - Essential (primary) hypertension (4) Tobacco abuse ICD Code: Z72.0 - Tobacco use Assessment and Plan 11/18/17: No change. Patient refused Coumadin yesterday. INR is pending today. Continue PT/OT. Continue oral vancomycin. 1. Extension of left hemisphere CVA: Appreciate neurology recommendations. Continue Coumadin. INR is therapeutic. Continue PT/OT. Patient continues to have severe expressive aphasia as well as right-sided weakness. Injury is extensive, long-term prognosis for significant recovery is poor. Speech therapy signed off. 2. Seizure: Continue Keppra. 3. Hypertension: Continue JAYLEN inhibitor, beta evonne. Vasotec as needed. 4. C. difficile colitis: Hypervirulent strain. Appreciate infectious disease recommendations. Continue oral vancomycin. 5. Bipolar disorder, agitation: Continue Seroquel. 6. Cardiomyopathy: Continue beta evonne, JAYLEN inhibitor. 7. DVT prophylaxis: Heparin. Discharge Planning Discharge to SNF when arrangements are made. Aniceto Reardon MD Nov 18, 2017 11:12
[2017-11-18] MEDS: SODIUM CHLORIDE 0.9% FLUSH 10 ML FLUSH IV FLUSH SCH ×2 (11:35→21:14)
--- NOTE | 2017-11-18 15:03 | PD.HHIRBSE ---
Patient History Record/History Review Reason for Referral: The patient is a 67 year old presumably right handed female status post left CVA with right hemiplegia who was admitted on 10/25/2017. Her head CT is significant for left MCA infarction. This patient has a history of bipolar disorder and psychiatry has followed up during her recent admission. She has multiple psychiatric admissions in the past. During recent follow-up, Dr. Walker opined, "Patient currently too sedated to participate in evaluation of decisional capacity at this time. In the event the patient continues to be noted to be delirious patient may continue to have decisional capacity secondary to this. We'll attempt to reassess patient when awake and less lethargic. We'll continue to follow." She is now referred for baseline neurobehavioral status examination per trauma protocol to assess cognitive, behavioral and emotional aspects of the injury and to provide treatment recommendations. Neuropsych Precautions: To be determined. Past Surgical/Medical History Past Surgery: No Major surgery in last 100 days: Unknown Hx Orthopedic Surgery: Yes (LEFT KNEE ARTHROSCOPY X2 ) Hx Cardiac Surgery: No Hx Chest Surgery: No Hx Abdominal Surgery: Yes Hx Genitourinary Surgery: Yes (C SECTION AND CYSTS REMOVED FROM OVARIES) Hx Gynecologic Surgery: Yes (FIBROID TUMOR REMOVED) Hx Endocrine Surgery: No Hx Eye Surgery: No Hx Ear Surgery: No Hx Oral Surgery: No Hx of Neuro Prob: Yes Hx Seizures: Yes Hx Cerebrovascular Accident: Yes Hx of Musculoskeletal Pro: No Hx Neck Problems: Yes Hx Back Problem: Yes Hx of Cardiovascular Prob: Yes Hypertension (High Blood Press: Yes Hx of Respiratory Problem: No Hx of GI Problems: No Hx Heartburn: Yes Hx Hiatal Hernia: No Hx of Problems: No Hx Renal Disease: Yes Hx of Immuno Disor: Yes 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) Hx of Endocrine Problems: Yes Hx Thyroid Disease: No Hx Diabetes: Yes Does Patient Currently Take Gl: No Diabetic Diagnosed 3 Months Or: No Hx of Eye Probl: No Hx of Hearing or Ear Problems: No Hx Dental Problems: No Hx Psychiatric Problems: Yes (BIPOLAR, SCHIZOPHRENIA) Hx Anxiety: Yes Hx Depression: Yes Hx Blood Dyscrasias: No Hx of MDRO: No Hx of MRSA: Yes (as child) Hx of VRE: No Hx of CDIFF: No Hx of Tuberculosis: No 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 She did not appear oriented to place, time or circumstances surrounding the reason for hospitalization. The most significant barrier to evaluation is language ability given her left MCA CVA. The patient appeared unable to initiate spontaneous conversation. Speech was not appreciated, as she did not respond to any questions presented to her. Basic naming skills were deferred. Language repetition skills were deferred. The patients comprehensions for basic one- and two-stage commands appeared impaired. She was unable to demonstrate reading or writing skills given her poor participation in the evaluation process. Her verbal abstraction and problem-solving skills were deferred. The patient appears to posses poor insight and awareness into their situation and within the limits of this brief evaluation, poor judgment. In terms of attention skills, the patient was unable to remain on task and remember basic and complex instructions. In terms of memory functioning, the patient demonstrated poor carryover. Adjustment/Coping Assessment Adjustment/Coping: Severe: Awareness, Insight Observation The patients thought content appeared free from suicidal, homicidal or paranoid ideation, but in general determination was not able to be ascertained. The patients thought processes were unable to be determined. The patients mood was apathetic, and her affect was apathetic. LTG Status: Deferred STG Status: Deferred Team Members: Neuropsychologist Behavior Assessment Agitation: None Treatment Engagement: No effort Observation Behaviorally, the patient demonstrated no signs of agitation, impulsivity or disinhibition. However, she is noted to have been agitated in the past, requiring her current psychotropic medication regimen. There was no remarkable evidence of a formal thought disorder or psychosis but her clinical presentation and lack of participation thwarted an accurate understanding of any underlying thought disorder or psychosis. LTG - Status: Deferred STG Status: Deferred Team Members: Neuropsychologist Diagnosis/Discharge Plan Impression This 67 year old woman is s/p left CVA with right hemiplegia who was in her usual state of health until events that preceded her admission on 10/25/2017. While she does have an underlying history of bipolar disorder with prior psychiatric admissions, her current neuropsychological issues are such that she presents with a global aphasia affecting her ability to express her needs and comprehend verbal instructions. Because of these neuropsychological issues, a formal evaluation of her neurocognitive functioning is unable to be completed. However, based on her clinical presentation in light of her known neuropathology it would be my clinical opinion that this patient has very limited insight, awareness and judgment into her current situation thus affecting her decision making capacity. She meets criteria for vascular dementia at this point in time. Diagnosis: (1) Bipolar disorder, unspecified (2) Vascular dementia of acute onset with behavioral disturbance Disinhibition Score: 17.50 Aggression Score: 17.50 Lability Score: 14.00 Agitated Behavior Total Score: 16 Maximizing acute care outcome It is recommended that the patient be monitored for emergent behavioral impulsivity as the medical condition evolves. This patients neuropathological challenges may limit her rehabilitation potential going forward, and these challenges will require specialized therapeutic skills to maximize outcome. At this point in the recovery process, it is anticipated that the patient does not have cognitive capacity as the patient does not appear able to understand a situation and its likely consequences, nor is she able to demonstrate an ability to manipulate information rationally. Thus, her decision making capacity is unlikely due to the neuropsychological consequences of her neuropathology. Cognitive capacity will be assessed throughout the recovery process. In addition, continued psychiatric follow-up for the agitation related to her neuropathology is recommended. Her history of bipolar disorder exacerbates but does not cause her current clinical issues. Discharge Planning Anticipated Problems Ongoing areas of concern will include behavioral impulsivity, lack of insight and judgment, which is expected to improve with time and treatment. Presently , the patient is not following commands. This patient is not considered safe to discharge home without supervision. Treatment Plan This clinician will continue to follow with you throughout the course of this patients acute care treatment, and I will be available to meet with the patient s family/support system to facilitate their understanding and the ongoing care of their family member. The goals of neuropsychological intervention shall be both educational and supportive to the family/support system as is deemed clinically appropriate. Discharge Needs To be determined. Thank you Thank you for the opportunity to assist in this patients care. Johnny Mo, Ph.D., ABPP Board Certified in Clinical Neuropsychology [place] [employer] [place] Licensed Psychologist #[id number] Johnny Mo PhD Nov 18, 2017 3:03 pm
[2017-11-18 16:40] LABS: AUTOMATED NEUTROPHIL # 6.3 TH/MM3 (1.8-7.7); BASOPHIL % 0.4 % (0.0-2.0); EOSINOPHIL # 0.1 TH/MM3 (0-0.4); EOSINOPHIL % 1.6 % (0.0-4.0); HEMATOCRIT 39.9 % (35.0-46.0); HEMOGLOBIN 13.9 GM/DL (11.6-15.3); LYMPH % 22.1 % (9.0-44.0); MEAN CELL VOLUME 87.6 FL (80.0-100.0); MEAN CORPUSCULAR HEMOGLOBIN 30.6 PG (27.0-34.0); MEAN CORPUSCULAR HGB CONC 34.9 % (32.0-36.0); MONO % 5.3 % (0.0-8.0); MONOCYTE # 0.5 TH/MM3 (0-0.9); NEUT % 70.6 % (16.0-70.0); PLATELET COUNT 256 TH/MM3 (150-450); RED BLOOD COUNT 4.56 MIL/MM3 (4.00-5.30); RED CELL DISTRIBUTION WIDTH 14.8 % (11.6-17.2); WHITE BLOOD COUNT 8.9 TH/MM3 (4.0-11.0)
[2017-11-18 16:50] LABS: INTERNATIONAL NORMALIZED RATIO 1.6 RATIO; PROTHROMBIN TIME - PATIENT 16.6 SEC (9.8-11.6)
[2017-11-18 17:01] LABS: BICARBONATE 32.7 MEQ/L (21.0-32.0); CALCIUM 9.9 MG/DL (8.5-10.1); CREATININE 0.77 MG/DL (0.50-1.00)
[2017-11-19] VITALS (8 sets, daily range): BP systolic 97–157; BP diastolic 52–71; PULSE 72–85; RESP 18–20; TEMP 97–98; O2SAT 95–99
[2017-11-19] MEDS: ACETAMINOPHEN/HYDROcodone 325 MG/10 MG TAB PO PRN ×2 (02:20→04:27)
[2017-11-19 08:13] LABS: INTERNATIONAL NORMALIZED RATIO 1.7 RATIO; PROTHROMBIN TIME - PATIENT 17.1 SEC (9.8-11.6)
[2017-11-19] MEDS: LISINOPRIL 5 MG TAB PO SCH ×2 (09:00→21:30)
[2017-11-19] MEDS: SODIUM CHLORIDE 0.9% FLUSH 10 ML FLUSH IV FLUSH SCH ×2 (09:00→21:00)
[2017-11-19] MEDS: CARVEDILOL 3.125 MG TAB PO SCH ×2 (09:00→21:30)
[2017-11-19] MEDS: ATORVASTATIN 10 MG TAB PO SCH (09:29)
[2017-11-19] MEDS: LACTOBACILLUS ACIDOPHILUS TAB PO SCH ×3 (09:29→17:16)
[2017-11-19] MEDS: levETIRAcetam 500 MG TAB PO SCH ×2 (09:29→21:00)
[2017-11-19] MEDS: DOCUSATE SODIUM 50 MG/SENNA 8.6 MG TAB PO SCH ×2 (09:29→21:00)
[2017-11-19] MEDS: QUEtiapine FUMARATE 25 MG TAB PO SCH ×2 (09:29→12:00)
[2017-11-19] MEDS: DIAZEPAM 5 MG TAB PO SCH ×2 (09:29→21:30)
--- NOTE | 2017-11-19 14:14 | HHI.PR ---
Subjective Remarks Follow up CVA/C-diff colitis 11/19/17-patient seen and examined; she does have expressive aphasia .no acute event overnight Objective Vitals Vital Signs Date Time Temp Pulse Resp B/P (MAP) Pulse Ox O2 Delivery O2 Flow Rate FiO2 11/19/17 12:47 97.6 72 20 138/65 (89) 99 11/19/17 08:21 97.9 80 20 97/71 (80) 98 11/19/17 06:14 97.5 77 18 157/52 (87) 97 11/19/17 04:43 75 11/19/17 01:43 97.2 79 18 137/64 (88) 96 11/19/17 00:09 78 11/18/17 20:18 83 11/18/17 20:05 97.8 84 20 143/81 (101) 96 11/18/17 18:04 97.0 88 20 132/58 (82) 95 11/18/17 16:17 18 I/O 11/18/17 11/18/17 11/18/17 11/19/17 11/19/17 11/19/17 07:00 15:00 23:00 07:00 15:00 23:00 Output Total 1 ml 1 ml Balance -1 ml -1 ml Output Urine Total 1 ml 1 ml # Voids 1 # Bowel Movements 0 1 Result Diagram: 11/18/17 1455 11/18/17 1455 Imaging Last Impressions Chest X-Ray 11/04/17 0000 Signed Impressions: Service Date/Time: Saturday, November 04, 2017 09:26 - CONCLUSION: No acute cardiopulmonary findings identified. Known fracture of the proximal right humerus. Nikolas Stewart MD Neck CTA 10/27/17 0000 Signed Impressions: Service Date/Time: Friday, October 27, 2017 17:42 - CONCLUSION: 1. Occluded left internal carotid artery 2. Mild narrowing at the origin of the right internal carotid artery measuring 30%%. 3. Patent vertebral arteries with good flow. Price Cee MD Head CTA 10/27/17 0000 Signed Impressions: Service Date/Time: Friday, October 27, 2017 17:42 - CONCLUSION: 1. Occluded intracranial segment of the left internal carotid artery. 2. Very scant flow in the left middle cerebral artery distribution with proximal MCA occlusion. 3. Evolving large left MCA infarct. Price Cee MD Head CT 10/27/17 0000 Signed Impressions: Service Date/Time: Friday, October 27, 2017 17:34 - CONCLUSION: 1. No evidence of acute right-sided infarction. Cystic encephalomalacia involving the left middle cerebral artery distribution unchanged 2. Pansinusitis Soren Rose MD Carotid Artery Ultrasound 10/27/17 0000 Signed Impressions: Service Date/Time: Friday, October 27, 2017 16:16 - CONCLUSION: 1. Findings of left carotid occlusion. CT angiography of the carotid arteries the brain is recommended for further evaluation Soren Rose MD Brain MRI 10/26/17 0000 Signed Impressions: Service Date/Time: Thursday, October 26, 2017 16:34 - CONCLUSION: Cystic encephalomalacia involving large left middle cerebral artery ischemic infarction. There is a small focus of restricted diffusion in the posterior left frontal region without hemorrhage characteristic of extension of the infarct. Pansinusitis Soren Rose MD Radius/Ulna X-Ray 10/25/17 0000 Signed Impressions: Service Date/Time: Wednesday, October 25, 2017 20:03 - CONCLUSION: 1. No acute fracture or dislocation. No bony destructive changes. Carlton Early MD Humerus X-Ray 10/25/17 0000 Signed Impressions: Service Date/Time: Wednesday, October 25, 2017 20:09 - CONCLUSION: 1. Subacute right humeral neck fracture with Callus formation. No significant change in displacement compared with September 30. Carlton Early MD Objective Remarks GENERAL: NAD with expressive aphasia SKIN: Warm and dry. HEAD: Normocephalic. EYES: No scleral icterus. No injection or drainage. NECK: Supple, trachea midline. No JVD or lymphadenopathy. CARDIOVASCULAR: Regular rate and rhythm without murmurs, gallops, or rubs. RESPIRATORY: Breath sounds equal bilaterally. No accessory muscle use. GASTROINTESTINAL: Abdomen soft, non-tender, nondistended. MUSCULOSKELETAL: No cyanosis, or edema. Right-sided weakness BACK: Nontender without obvious deformity. No CVA tenderness. Procedures none A/P Problem List: (1) Encephalopathy ICD Code: G93.40 - Encephalopathy, unspecified (2) CVA (cerebral vascular accident) ICD Code: I63.9 - Cerebral infarction, unspecified (3) HTN (hypertension) ICD Code: I10 - Essential (primary) hypertension (4) Tobacco abuse ICD Code: Z72.0 - Tobacco use Assessment and Plan 67-year-old female with 1. Extension of left hemisphere CVA: Appreciate neurology recommendations. Continue Coumadin. Continue PT/OT.Speech therapy signed off. 2. Seizure: Continue Keppra. 3. Hypertension: Continue JAYLEN inhibitor, beta evonne. Vasotec as needed. 4. C. difficile colitis: Hyper virulent strain. Appreciate infectious disease recommendations. Continue oral vancomycin. 5. Bipolar disorder, agitation: Continue Seroquel. 6. Cardiomyopathy: Continue beta evonne, JAYLEN inhibitor. 7. DVT prophylaxis: Heparin. Discharge Planning Awaiting discharge disposition to SNF Theron Calles MD Nov 19, 2017 14:14
[2017-11-19] MEDS: WARFARIN SOD 2.5 MG TAB PO SCH (15:33)
[2017-11-20 01:27] VITALS: BP 145/102; PULSE 88; RESP 20; TEMP 97.6; O2SAT 100
[2017-11-20 05:17] VITALS: BP 165/76; PULSE 77; RESP 19; TEMP 97.3; O2SAT 95
[2017-11-20 07:31] LABS: INTERNATIONAL NORMALIZED RATIO 1.7 RATIO; PROTHROMBIN TIME - PATIENT 17.2 SEC (9.8-11.6)
[2017-11-20 08:00] VITALS: BP 135/63; PULSE 85; RESP 18; TEMP 98.2; O2SAT 100
[2017-11-20] MEDS: LACTOBACILLUS ACIDOPHILUS TAB PO SCH ×3 (08:16→18:00)
[2017-11-20] MEDS: ATORVASTATIN 10 MG TAB PO SCH (08:17)
[2017-11-20] MEDS: QUEtiapine FUMARATE 25 MG TAB PO SCH ×2 (08:17→12:55)
[2017-11-20] MEDS: DOCUSATE SODIUM 50 MG/SENNA 8.6 MG TAB PO SCH ×2 (08:17→21:00)
[2017-11-20] MEDS: levETIRAcetam 500 MG TAB PO SCH ×2 (08:17→21:41)
[2017-11-20] MEDS: DIAZEPAM 5 MG TAB PO SCH ×2 (08:18→21:42)
[2017-11-20] MEDS: CARVEDILOL 3.125 MG TAB PO SCH ×2 (08:18→21:00)
[2017-11-20] MEDS: LISINOPRIL 5 MG TAB PO SCH ×2 (08:18→21:00)
[2017-11-20] MEDS: SODIUM CHLORIDE 0.9% FLUSH 10 ML FLUSH IV FLUSH SCH ×2 (08:18→21:00)
--- NOTE | 2017-11-20 11:15 | HHI.PR ---
Subjective Remarks Follow up CVA/C-diff colitis 11/19/17-patient seen and examined; she does have expressive aphasia .no acute event overnight 11/20/17-patient seen and examined, no change , patient has been refusing some of her meds Objective Vitals Vital Signs Date Time Temp Pulse Resp B/P (MAP) Pulse Ox O2 Delivery O2 Flow Rate FiO2 11/20/17 08:00 98.2 85 18 135/63 (87) 100 11/20/17 05:17 97.3 77 19 165/76 (105) 95 11/20/17 01:27 97.6 88 20 145/102 (116) 100 11/19/17 20:48 98.0 85 18 130/64 (86) 99 11/19/17 16:52 97.0 81 20 120/61 (80) 95 11/19/17 12:47 97.6 72 20 138/65 (89) 99 I/O 11/19/17 11/19/17 11/19/17 11/20/17 11/20/17 11/20/17 07:00 15:00 23:00 07:00 15:00 23:00 Output Total 1 ml Balance -1 ml Output Urine Total 1 ml # Voids 3 # Bowel Movements 1 Result Diagram: 11/18/17 1455 11/18/17 1455 Objective Remarks GENERAL: NAD with expressive aphasia SKIN: Warm and dry. HEAD: Normocephalic. EYES: No scleral icterus. No injection or drainage. NECK: Supple, trachea midline. No JVD or lymphadenopathy. CARDIOVASCULAR: Regular rate and rhythm without murmurs, gallops, or rubs. RESPIRATORY: Breath sounds equal bilaterally. No accessory muscle use. GASTROINTESTINAL: Abdomen soft, non-tender, nondistended. MUSCULOSKELETAL: No cyanosis, or edema. Right-sided weakness BACK: Nontender without obvious deformity. No CVA tenderness. Procedures none A/P Problem List: (1) Encephalopathy ICD Code: G93.40 - Encephalopathy, unspecified (2) CVA (cerebral vascular accident) ICD Code: I63.9 - Cerebral infarction, unspecified (3) HTN (hypertension) ICD Code: I10 - Essential (primary) hypertension (4) Tobacco abuse ICD Code: Z72.0 - Tobacco use Assessment and Plan 67-year-old female with 1. Extension of left hemisphere CVA: Appreciate neurology recommendations. Continue Coumadin. Continue PT/OT.Speech therapy signed off. 2. Seizure: Continue Keppra. 3. Hypertension: Continue JAYLEN inhibitor, beta evonne. Vasotec as needed. 4. C. difficile colitis: Hyper virulent strain. Appreciate infectious disease recommendations. Continue oral vancomycin. 5. Bipolar disorder, agitation: Continue Seroquel. 6. Cardiomyopathy: Continue beta evonne, JAYLEN inhibitor. 7. DVT prophylaxis: Heparin. Discharge Planning Awaiting discharge disposition to SNF Theron Calles MD Nov 20, 2017 11:15
[2017-11-20 12:00] VITALS: BP 120/59; PULSE 78; RESP 18; TEMP 98.2; O2SAT 98
[2017-11-20] MEDS: WARFARIN SOD 2.5 MG TAB PO SCH (13:04)
[2017-11-20 16:00] VITALS: BP 117/58; PULSE 87; RESP 18; TEMP 98.3; O2SAT 99
[2017-11-20 20:00] VITALS: BP 108/53; PULSE 83; RESP 18; TEMP 97.5; O2SAT 98
[2017-11-21] VITALS: BP 140/64; PULSE 73; RESP 18; TEMP 97.5; O2SAT 99
[2017-11-21 04:00] VITALS: BP 171/72; PULSE 51; RESP 18; TEMP 97.5; O2SAT 100
[2017-11-21] MEDS: ACETAMINOPHEN/HYDROcodone 325 MG/10 MG TAB PO PRN (05:26)
[2017-11-21 07:43] LABS: INTERNATIONAL NORMALIZED RATIO 1.9 RATIO; PROTHROMBIN TIME - PATIENT 19.3 SEC (9.8-11.6)
[2017-11-21 08:04] VITALS: BP 156/70; PULSE 74; RESP 18; TEMP 97.4; O2SAT 100
[2017-11-21] MEDS: SODIUM CHLORIDE 0.9% FLUSH 10 ML FLUSH IV FLUSH SCH ×2 (09:00→21:00)
[2017-11-21] MEDS: LACTOBACILLUS ACIDOPHILUS TAB PO SCH ×3 (09:19→18:00)
[2017-11-21] MEDS: QUEtiapine FUMARATE 25 MG TAB PO SCH ×2 (09:20→13:15)
[2017-11-21] MEDS: levETIRAcetam 500 MG TAB PO SCH ×2 (09:20→21:02)
[2017-11-21] MEDS: DOCUSATE SODIUM 50 MG/SENNA 8.6 MG TAB PO SCH ×2 (09:20→21:00)
[2017-11-21] MEDS: LISINOPRIL 5 MG TAB PO SCH ×2 (09:20→21:00)
[2017-11-21] MEDS: DIAZEPAM 5 MG TAB PO SCH ×2 (09:20→21:02)
[2017-11-21] MEDS: ATORVASTATIN 10 MG TAB PO SCH (09:20)
[2017-11-21] MEDS: CARVEDILOL 3.125 MG TAB PO SCH ×2 (09:37→21:00)
[2017-11-21 11:56] VITALS: BP 107/52; PULSE 73; RESP 18; TEMP 97.4; O2SAT 97
--- NOTE | 2017-11-21 11:58 | HHI.PR ---
Subjective Remarks Follow up CVA/C-diff colitis 11/19/17-patient seen and examined; she does have expressive aphasia .no acute event overnight 11/20/17-patient seen and examined, no change , patient has been refusing some of her meds 11/21/17-patient seen and examined, stable, still with expressive aphasia. Afebrile Objective Vitals Vital Signs Date Time Temp Pulse Resp B/P (MAP) Pulse Ox O2 Delivery O2 Flow Rate FiO2 11/21/17 08:04 97.4 74 18 156/70 (98) 100 11/21/17 04:00 97.5 51 18 171/72 (105) 100 11/21/17 00:00 97.5 73 18 140/64 (89) 99 11/20/17 20:00 97.5 83 18 108/53 (71) 98 11/20/17 16:00 98.3 87 18 117/58 (77) 99 11/20/17 12:00 98.2 78 18 120/59 (79) 98 I/O 11/20/17 11/20/17 11/20/17 11/21/17 11/21/17 11/21/17 07:00 15:00 23:00 07:00 15:00 23:00 # Voids 3 1 # Bowel Movements 1 1 Result Diagram: 11/18/17 1455 11/18/17 1455 Objective Remarks GENERAL: NAD with expressive aphasia SKIN: Warm and dry. HEAD: Normocephalic. EYES: No scleral icterus. No injection or drainage. NECK: Supple, trachea midline. No JVD or lymphadenopathy. CARDIOVASCULAR: Regular rate and rhythm without murmurs, gallops, or rubs. RESPIRATORY: Breath sounds equal bilaterally. No accessory muscle use. GASTROINTESTINAL: Abdomen soft, non-tender, nondistended. MUSCULOSKELETAL: No cyanosis, or edema. Right-sided weakness BACK: Nontender without obvious deformity. No CVA tenderness. Procedures none A/P Problem List: (1) Encephalopathy ICD Code: G93.40 - Encephalopathy, unspecified (2) CVA (cerebral vascular accident) ICD Code: I63.9 - Cerebral infarction, unspecified (3) HTN (hypertension) ICD Code: I10 - Essential (primary) hypertension (4) Tobacco abuse ICD Code: Z72.0 - Tobacco use Assessment and Plan 67-year-old female with 1. Extension of left hemisphere CVA: Appreciate neurology recommendations. Continue Coumadin. Continue PT/OT.Speech therapy signed off. 2. Seizure: Continue Keppra. Seizure precautions 3. Hypertension: Continue JAYLEN inhibitor, beta evonne. Vasotec as needed. 4. C. difficile colitis: Hyper virulent strain. Appreciate infectious disease recommendations. Continue oral vancomycin. 5. Bipolar disorder, agitation: Continue Seroquel. 6. Cardiomyopathy: Continue beta evonne, JAYLEN inhibitor. 7. DVT prophylaxis: Heparin. Discharge Planning Awaiting discharge disposition to [facility] Theron Calles MD Nov 21, 2017 11:58
[2017-11-21] MEDS: WARFARIN SOD 2.5 MG TAB PO SCH (13:19)
[2017-11-21 16:30] VITALS: BP 98/50; PULSE 76; RESP 18; TEMP 97.3; O2SAT 99
[2017-11-21 20:00] VITALS: BP 120/67; PULSE 69; RESP 19; TEMP 97.9; O2SAT 96
[2017-11-22] VITALS (7 sets, daily range): BP systolic 96–153; BP diastolic 59–75; PULSE 60–88; RESP 18–20; TEMP 95.5–98.8; O2SAT 95–100
[2017-11-22 06:27] LABS: PROTHROMBIN TIME - PATIENT 20.7 SEC (9.8-11.6)
[2017-11-22] MEDS: SODIUM CHLORIDE 0.9% FLUSH 10 ML FLUSH IV FLUSH SCH ×2 (09:00→21:00)
[2017-11-22] MEDS: LISINOPRIL 5 MG TAB PO SCH ×2 (09:18→21:00)
[2017-11-22] MEDS: CARVEDILOL 3.125 MG TAB PO SCH ×2 (09:18→21:00)
[2017-11-22] MEDS: levETIRAcetam 500 MG TAB PO SCH ×2 (09:18→21:39)
[2017-11-22] MEDS: DIAZEPAM 5 MG TAB PO SCH ×2 (09:18→21:39)
[2017-11-22] MEDS: LACTOBACILLUS ACIDOPHILUS TAB PO SCH ×3 (09:18→17:22)
[2017-11-22] MEDS: DOCUSATE SODIUM 50 MG/SENNA 8.6 MG TAB PO SCH ×2 (09:19→21:39)
[2017-11-22] MEDS: ATORVASTATIN 10 MG TAB PO SCH (09:20)
[2017-11-22] MEDS: QUEtiapine FUMARATE 25 MG TAB PO SCH ×2 (09:20→12:37)
--- NOTE | 2017-11-22 09:31 | HHI.PR ---
Subjective Remarks Follow up CVA/C-diff colitis 11/19/17-patient seen and examined; she does have expressive aphasia .no acute event overnight 11/20/17-patient seen and examined, no change , patient has been refusing some of her meds 11/21/17-patient seen and examined, stable, still with expressive aphasia. Afebrile 11/22/17-patient seen and examined, no acute event overnight, positive for expressive aphasia, no change and stable. Objective Vitals Vital Signs Date Time Temp Pulse Resp B/P (MAP) Pulse Ox O2 Delivery O2 Flow Rate FiO2 11/22/17 08:16 97.6 88 18 97 11/22/17 04:00 97.9 60 19 120/64 (82) 96 11/22/17 00:30 98.8 66 20 125/65 (85) 95 11/21/17 20:00 97.9 69 19 120/67 (84) 96 11/21/17 16:30 97.3 76 18 98/50 (66) 99 11/21/17 11:56 97.4 73 18 107/52 (70) 97 I/O 11/21/17 11/21/17 11/21/17 11/22/17 11/22/17 11/22/17 07:00 15:00 23:00 07:00 15:00 23:00 Intake Total 340 ml 100 ml Balance 340 ml 100 ml Intake Oral 340 ml 100 ml # Voids 1 5 2 # Bowel Movements 1 1 0 0 Result Diagram: 11/18/17 1455 11/18/17 1455 Objective Remarks GENERAL: NAD with expressive aphasia SKIN: Warm and dry. HEAD: Normocephalic. EYES: No scleral icterus. No injection or drainage. NECK: Supple, trachea midline. No JVD or lymphadenopathy. CARDIOVASCULAR: Regular rate and rhythm without murmurs, gallops, or rubs. RESPIRATORY: Breath sounds equal bilaterally. No accessory muscle use. GASTROINTESTINAL: Abdomen soft, non-tender, nondistended. MUSCULOSKELETAL: No cyanosis, or edema. Right-sided weakness BACK: Nontender without obvious deformity. No CVA tenderness. Procedures none A/P Problem List: (1) Encephalopathy ICD Code: G93.40 - Encephalopathy, unspecified (2) CVA (cerebral vascular accident) ICD Code: I63.9 - Cerebral infarction, unspecified (3) HTN (hypertension) ICD Code: I10 - Essential (primary) hypertension (4) Tobacco abuse ICD Code: Z72.0 - Tobacco use Assessment and Plan 67-year-old female with 1. Extension of left hemisphere CVA: Appreciate neurology recommendations. Continue Coumadin. Continue PT/OT.Speech therapy signed off. 2. Seizure: Continue Keppra. Seizure precautions 3. Hypertension: Continue JAYLEN inhibitor, beta evonne. Vasotec as needed. 4. C. difficile colitis: Hyper virulent strain. Appreciate infectious disease recommendations. Continue oral vancomycin. 5. Bipolar disorder, agitation: Continue Seroquel. 6. Cardiomyopathy: Continue beta evonne, JAYLEN inhibitor. 7. DVT prophylaxis: Heparin. 11/22/17: Continue current treatment Discharge Planning Awaiting discharge disposition to SNF Theron Clales MD Nov 22, 2017 09:31
[2017-11-22] MEDS: WARFARIN SOD 2.5 MG TAB PO SCH (15:39)
[2017-11-23] MEDS: ACETAMINOPHEN/HYDROcodone 325 MG/10 MG TAB PO PRN (00:22)
[2017-11-23 00:59] VITALS: BP 133/77; PULSE 101; RESP 18; TEMP 96; O2SAT 97
[2017-11-23 06:06] VITALS: BP 112/61; PULSE 90; RESP 18; TEMP 96.1; O2SAT 97
[2017-11-23 07:11] LABS: INTERNATIONAL NORMALIZED RATIO 2.5 RATIO; PROTHROMBIN TIME - PATIENT 25.7 SEC (9.8-11.6)
[2017-11-23 08:02] VITALS: BP 126/70; PULSE 86; RESP 20; TEMP 96.1; O2SAT 100
[2017-11-23] MEDS: CARVEDILOL 3.125 MG TAB PO SCH ×2 (09:00→21:00)
[2017-11-23] MEDS: LISINOPRIL 5 MG TAB PO SCH ×2 (09:00→21:00)
--- NOTE | 2017-11-23 09:37 | HHI.PR ---
Subjective Remarks Follow up CVA/C-diff colitis 11/19/17-patient seen and examined; she does have expressive aphasia .no acute event overnight 11/20/17-patient seen and examined, no change , patient has been refusing some of her meds 11/21/17-patient seen and examined, stable, still with expressive aphasia. Afebrile 11/22/17-patient seen and examined, no acute event overnight, positive for expressive aphasia, no change and stable. 11/23/17-patient seen and examined, stable, afebrile, no acute event overnight Objective Vitals Vital Signs Date Time Temp Pulse Resp B/P (MAP) Pulse Ox O2 Delivery O2 Flow Rate FiO2 11/23/17 08:02 96.1 86 20 126/70 (88) 100 11/23/17 06:06 96.1 90 18 112/61 (78) 97 11/23/17 00:59 96.0 101 18 133/77 (95) 97 11/22/17 20:45 95.5 84 19 125/75 (92) 99 11/22/17 15:59 96.3 86 19 96/60 (72) 100 11/22/17 12:31 97.2 86 18 134/59 (84) 97 I/O 11/22/17 11/22/17 11/22/17 11/23/17 11/23/17 11/23/17 07:00 15:00 23:00 07:00 15:00 23:00 Intake Total 100 ml 30 ml Balance 100 ml 30 ml Intake Oral 100 ml 30 ml # Voids 2 1 2 # Bowel Movements 0 Objective Remarks GENERAL: NAD with expressive aphasia SKIN: Warm and dry. HEAD: Normocephalic. EYES: No scleral icterus. No injection or drainage. NECK: Supple, trachea midline. No JVD or lymphadenopathy. CARDIOVASCULAR: Regular rate and rhythm without murmurs, gallops, or rubs. RESPIRATORY: Breath sounds equal bilaterally. No accessory muscle use. GASTROINTESTINAL: Abdomen soft, non-tender, nondistended. MUSCULOSKELETAL: No cyanosis, or edema. Right-sided weakness BACK: Nontender without obvious deformity. No CVA tenderness. Procedures none A/P Problem List: (1) Encephalopathy ICD Code: G93.40 - Encephalopathy, unspecified (2) CVA (cerebral vascular accident) ICD Code: I63.9 - Cerebral infarction, unspecified (3) HTN (hypertension) ICD Code: I10 - Essential (primary) hypertension (4) Tobacco abuse ICD Code: Z72.0 - Tobacco use Assessment and Plan 67-year-old female with 1. Extension of left hemisphere CVA: Appreciate neurology recommendations. Continue Coumadin. Continue PT/OT. 2. Seizure: Continue Keppra. Seizure precautions 3. Hypertension: Continue JAYLEN inhibitor, beta evonne. Vasotec as needed. 4. C. difficile colitis: Hyper virulent strain. Appreciate infectious disease recommendations. Continue oral vancomycin. 5. Bipolar disorder, agitation: Continue Seroquel. 6. Cardiomyopathy: Continue beta evonne, JAYLEN inhibitor. 7. DVT prophylaxis: Heparin. 11/23/17: Continue current treatment Discharge Planning Awaiting discharge disposition to [facility] Theron Calles MD Nov 23, 2017 09:37
[2017-11-23] MEDS: ATORVASTATIN 10 MG TAB PO SCH (10:02)
[2017-11-23] MEDS: levETIRAcetam 500 MG TAB PO SCH ×2 (10:02→22:28)
[2017-11-23] MEDS: LACTOBACILLUS ACIDOPHILUS TAB PO SCH ×3 (10:02→17:17)
[2017-11-23] MEDS: QUEtiapine FUMARATE 25 MG TAB PO SCH ×2 (10:03→12:00)
[2017-11-23] MEDS: DIAZEPAM 5 MG TAB PO SCH ×2 (10:03→22:28)
[2017-11-23] MEDS: SODIUM CHLORIDE 0.9% FLUSH 10 ML FLUSH IV FLUSH SCH ×2 (10:04→21:00)
[2017-11-23] MEDS: DOCUSATE SODIUM 50 MG/SENNA 8.6 MG TAB PO SCH ×2 (10:04→22:28)
[2017-11-23] MEDS ORDERED: COUM2.5T PO (11:12)
--- NOTE | 2017-11-23 11:18 | HHI.DS ---
Discharge Summary Admission Date Oct 27, 2017 at 13:11 Discharge Date: Nov 23, 2017 Admitting Diagnosis Possible seizure, possible TIA (1) Encephalopathy ICD Code: G93.40 - Encephalopathy, unspecified (2) CVA (cerebral vascular accident) ICD Code: I63.9 - Cerebral infarction, unspecified (3) HTN (hypertension) ICD Code: I10 - Essential (primary) hypertension (4) Tobacco abuse ICD Code: Z72.0 - Tobacco use Procedures none Brief History - From Admission History of present illness from the admitting physician This is a 67-year-old female w/ a PMH of CVA w/ Residual Aphasia, Right Hemiplegia and Left Hemiparesis, HTN, DM, Bipolar Disorder and Tobacco Abuse who was sent to the ER from [facility] secondary to acute AMS. Per report, pt wheeled herself outside to smoke and was found slumped over in her wheelchair. Pt unable to provide history due to aphasia and previous CVA. No reported seizure like activity at that time. Upon arrival to ER, pt's Sister reports pt back to baseline mental status. BP 194/90, HR 78, O2 sat 98% on RA, Afebrile. CBC unremarkable. Chemistry essentially unremarkable. Troponin negative. INR 1.1. UA pending. CXR with no acute findings. CT Head was stable remote left MCA infarct. Pt was to be d/c'd back to Rehab, however had episode of "seizure" while in ER, witnessed only by pt's Sister. Sister reports pt was "staring off into space" for several minutes. No h/o seizure in the past. Significant Findings Laboratory Tests Test 11/21/17 06:56 11/22/17 04:45 11/23/17 05:35 Prothrombin Time 19.3 SEC (9.8-11.6) 20.7 SEC (9.8-11.6) 25.7 SEC (9.8-11.6) PE at Discharge GENERAL: NAD with expressive aphasia SKIN: Warm and dry. HEAD: Normocephalic. EYES: No scleral icterus. No injection or drainage. NECK: Supple, trachea midline. No JVD or lymphadenopathy. CARDIOVASCULAR: Regular rate and rhythm without murmurs, gallops, or rubs. RESPIRATORY: Breath sounds equal bilaterally. No accessory muscle use. GASTROINTESTINAL: Abdomen soft, non-tender, nondistended. MUSCULOSKELETAL: No cyanosis, or edema. Right-sided weakness BACK: Nontender without obvious deformity. No CVA tenderness. Hospital Course While in hospital, patient was treated for: 1. Extension of left hemisphere CVA: Appreciate neurology recommendations. Ordered Coumadin however patient has been refusing. Received PT/OT. 2. Seizure: Treated with Keppra. Seizure precautions 3. Hypertension: Treated with JAYLEN inhibitor, beta evonne. Vasotec as needed. 4. C. difficile colitis: Hyper virulent strain. Appreciate infectious disease recommendations. Treated with oral vancomycin. 5. Bipolar disorder, agitation: Treated with Seroquel. 6. Cardiomyopathy: Treated with beta evonne, JAYLEN inhibitor. 7. DVT prophylaxis: Heparin. Pt Condition on Discharge: Stable Discharge Disposition: Discharge to SNF Discharge Time: > 30 minutes Discharge Instructions DIET: Follow Instructions for: Heart Healthy Diet Activities you can perform: Regular-No Restrictions Follow up Referrals: Neurology - 2 Weeks with Figueroa Hernández MD PhD PCP Follow-up New Orders: PT/INR - 2-3 Days New Medications: Vancomycin (Vancomycin) 250 Mg Cap 500 MG PO QID for Infection, #32 CAP 0 Refills Stop date: 11/22/17 Carvedilol (Coreg) 3.125 Mg Tab 3.125 MG PO Q12HR, #60 TAB Levetiracetam (Keppra) 500 Mg Tab 1000 MG PO Q12HR, #60 TAB Lisinopril (Lisinopril) 5 Mg Tab 5 MG PO BID, #60 TAB Quetiapine (Seroquel) 25 Mg Tab 50 MG PO BID@09,12, #60 TAB Warfarin (Coumadin) 2.5 Mg Tab 2.5 MG PO DAILY@1600, #30 TAB Warfarin (Coumadin) 2.5 Mg Tab 2.5 MG PO DAILY@1600 for Prevent Blood Clot, #30 TAB Continued Medications: Aspirin (Aspirin) 325 Mg Tab 325 MG PO DAILY, #30 TAB 0 Refills Atorvastatin (Lipitor) 10 Mg Tab 10 MG PO DAILY for Cholesterol Management, #30 TAB Diazepam (Valium) 5 Mg Tab 5 MG PO Q12HR for Anxiety and/or Insomnia, #30 TAB (This prescription has been renewed) Hydrocodone-Acetaminophen (Hydrocodone-Acetaminophen) 5-325 mg Tab 1 TAB PO Q6H PRN for PAIN, #20 TAB 0 Refills (This prescription has been renewed ) Theron Calles MD Nov 23, 2017 11:18
[2017-11-23 12:00] VITALS: BP 118/61; PULSE 93; RESP 20; TEMP 96.5; O2SAT 96
[2017-11-23 15:38] VITALS: BP 114/59; PULSE 91; RESP 20; TEMP 96.5; O2SAT 95
[2017-11-23] MEDS ORDERED: WARFARIN SOD 1 MG TAB PO ONE (16:00)
[2017-11-23 20:00] VITALS: BP 125/68; PULSE 88; RESP 18; TEMP 97.9; O2SAT 95
[2017-11-24] VITALS: BP 126/59; PULSE 94; RESP 18; TEMP 98.6; O2SAT 97
[2017-11-24] MEDS: ACETAMINOPHEN/HYDROcodone 325 MG/10 MG TAB PO PRN ×2 (00:09→08:27)
[2017-11-24 04:00] VITALS: BP 145/78; PULSE 84; RESP 18; TEMP 98.5; O2SAT 98
[2017-11-24 08:00] VITALS: BP 185/78; PULSE 98; RESP 19; TEMP 97.5; O2SAT 100
[2017-11-24] MEDS: DIAZEPAM 5 MG TAB PO SCH ×2 (08:27→21:00)
[2017-11-24] MEDS: CARVEDILOL 3.125 MG TAB PO SCH ×2 (08:27→21:38)
[2017-11-24] MEDS: LACTOBACILLUS ACIDOPHILUS TAB PO SCH ×3 (08:27→17:18)
[2017-11-24] MEDS: LISINOPRIL 5 MG TAB PO SCH ×2 (08:27→21:38)
[2017-11-24] MEDS: DOCUSATE SODIUM 50 MG/SENNA 8.6 MG TAB PO SCH ×2 (08:27→21:38)
[2017-11-24] MEDS: levETIRAcetam 500 MG TAB PO SCH ×2 (08:27→21:38)
[2017-11-24] MEDS: ATORVASTATIN 10 MG TAB PO SCH (08:28)
[2017-11-24] MEDS: QUEtiapine FUMARATE 25 MG TAB PO SCH ×2 (08:28→12:14)
[2017-11-24 08:52] LABS: INTERNATIONAL NORMALIZED RATIO 1.9 RATIO; PROTHROMBIN TIME - PATIENT 19.7 SEC (9.8-11.6)
[2017-11-24] MEDS: SODIUM CHLORIDE 0.9% FLUSH 10 ML FLUSH IV FLUSH SCH ×2 (09:34→21:00)
--- NOTE | 2017-11-24 09:43 | HHI.PR ---
Subjective Remarks Follow up CVA/C-diff colitis 11/19/17-patient seen and examined; she does have expressive aphasia .no acute event overnight 11/20/17-patient seen and examined, no change , patient has been refusing some of her meds 11/21/17-patient seen and examined, stable, still with expressive aphasia. Afebrile 11/22/17-patient seen and examined, no acute event overnight, positive for expressive aphasia, no change and stable. 11/23/17-patient seen and examined, stable, afebrile, no acute event overnight 11/24/17-patient seen and examined, no change and stable. Objective Vitals Vital Signs Date Time Temp Pulse Resp B/P (MAP) Pulse Ox O2 Delivery O2 Flow Rate FiO2 11/24/17 08:00 97.5 98 19 185/78 (113) 100 11/24/17 04:00 98.5 84 18 145/78 (100) 98 11/24/17 00:00 98.6 94 18 126/59 (81) 97 11/23/17 20:00 97.9 88 18 125/68 (87) 95 11/23/17 15:38 96.5 91 20 114/59 (77) 95 11/23/17 12:00 96.5 93 20 118/61 (80) 96 I/O 11/23/17 11/23/17 11/23/17 11/24/17 11/24/17 11/24/17 07:00 15:00 23:00 07:00 15:00 23:00 Intake Total 360 ml 800 ml Output Total 200 ml Balance 360 ml 600 ml Intake Oral 360 ml 800 ml Output Urine Total 200 ml # Voids 2 3 # Bowel Movements 0 Objective Remarks GENERAL: NAD with expressive aphasia SKIN: Warm and dry. HEAD: Normocephalic. EYES: No scleral icterus. No injection or drainage. NECK: Supple, trachea midline. No JVD or lymphadenopathy. CARDIOVASCULAR: Regular rate and rhythm without murmurs, gallops, or rubs. RESPIRATORY: Breath sounds equal bilaterally. No accessory muscle use. GASTROINTESTINAL: Abdomen soft, non-tender, nondistended. MUSCULOSKELETAL: No cyanosis, or edema. Right-sided weakness BACK: Nontender without obvious deformity. No CVA tenderness. Procedures none A/P Problem List: (1) Encephalopathy ICD Code: G93.40 - Encephalopathy, unspecified (2) CVA (cerebral vascular accident) ICD Code: I63.9 - Cerebral infarction, unspecified (3) HTN (hypertension) ICD Code: I10 - Essential (primary) hypertension (4) Tobacco abuse ICD Code: Z72.0 - Tobacco use Assessment and Plan 67-year-old female with 1. Extension of left hemisphere CVA: Appreciate neurology recommendations. Continue Coumadin. Continue PT/OT. 2. Seizure: Continue Keppra. Seizure precautions 3. Hypertension: Continue JAYLEN inhibitor, beta evonne. Vasotec as needed. 4. C. difficile colitis: Hyper virulent strain. Appreciate infectious disease recommendations. Continue oral vancomycin. 5. Bipolar disorder, agitation: Continue Seroquel. 6. Cardiomyopathy: Continue beta evonne, JAYLEN inhibitor. 7. DVT prophylaxis: Heparin. 11/24/17: Continue current treatment Discharge Planning Awaiting discharge disposition to [facility] Theron Calles MD Nov 24, 2017 09:43
[2017-11-24 12:00] VITALS: BP 127/62; PULSE 86; RESP 18; TEMP 97.6; O2SAT 95
[2017-11-24 16:00] VITALS: BP 112/58; PULSE 88; RESP 18; TEMP 97.8; O2SAT 95
[2017-11-24] MEDS: WARFARIN SOD 2.5 MG TAB PO SCH (17:18)
[2017-11-24 20:50] VITALS: BP 120/58; PULSE 86; RESP 16; TEMP 97.5; O2SAT 98
[2017-11-25 01:59] VITALS: BP 134/56; PULSE 87; RESP 16; TEMP 97.4; O2SAT 97
[2017-11-25 06:15] VITALS: BP 128/60; PULSE 88; RESP 17; TEMP 97.6; O2SAT 98
[2017-11-25 07:40] LABS: INTERNATIONAL NORMALIZED RATIO 1.3 RATIO; PROTHROMBIN TIME - PATIENT 13.4 SEC (9.8-11.6)
[2017-11-25 07:44] VITALS: BP 126/67; PULSE 93; RESP 18; TEMP 98.2; O2SAT 98
[2017-11-25] MEDS: levETIRAcetam 500 MG TAB PO SCH ×2 (08:36→22:28)
[2017-11-25] MEDS: LACTOBACILLUS ACIDOPHILUS TAB PO SCH ×3 (08:37→16:58)
[2017-11-25] MEDS: ATORVASTATIN 10 MG TAB PO SCH (08:37)
[2017-11-25] MEDS: QUEtiapine FUMARATE 25 MG TAB PO SCH ×2 (08:37→11:56)
[2017-11-25] MEDS: CARVEDILOL 3.125 MG TAB PO SCH ×2 (08:38→21:00)
[2017-11-25] MEDS: DIAZEPAM 5 MG TAB PO SCH ×2 (08:38→22:28)
[2017-11-25] MEDS: DOCUSATE SODIUM 50 MG/SENNA 8.6 MG TAB PO SCH ×2 (08:38→22:28)
[2017-11-25] MEDS: LISINOPRIL 5 MG TAB PO SCH ×2 (08:38→21:00)
[2017-11-25] MEDS: SODIUM CHLORIDE 0.9% FLUSH 10 ML FLUSH IV FLUSH SCH ×2 (08:39→21:00)
--- NOTE | 2017-11-25 10:25 | HHI.PR ---
Subjective Remarks Follow up CVA/C-diff colitis 11/19/17-patient seen and examined; she does have expressive aphasia .no acute event overnight 11/20/17-patient seen and examined, no change , patient has been refusing some of her meds 11/21/17-patient seen and examined, stable, still with expressive aphasia. Afebrile 11/22/17-patient seen and examined, no acute event overnight, positive for expressive aphasia, no change and stable. 11/23/17-patient seen and examined, stable, afebrile, no acute event overnight 11/24/17-patient seen and examined, no change and stable. 11/25/17-patient seen and examined,+ expressive aphasia, vitals stable Objective Vitals Vital Signs Date Time Temp Pulse Resp B/P (MAP) Pulse Ox O2 Delivery O2 Flow Rate FiO2 11/25/17 07:44 98.2 93 18 126/67 (86) 98 11/25/17 06:15 97.6 88 17 128/60 (82) 98 11/25/17 01:59 97.4 87 16 134/56 (82) 97 11/24/17 20:50 97.5 86 16 120/58 (78) 98 11/24/17 16:00 97.8 88 18 112/58 (76) 95 11/24/17 12:00 97.6 86 18 127/62 (83) 95 I/O 11/24/17 11/24/17 11/24/17 11/25/17 11/25/17 11/25/17 07:00 15:00 23:00 07:00 15:00 23:00 Intake Total 800 ml Output Total 200 ml 500 ml Balance 600 ml -500 ml Intake Oral 800 ml Output Urine Total 200 ml 500 ml Bladder Scan Volume Amount 449 ml # Voids 1 # Bowel Movements 0 Objective Remarks GENERAL: NAD with expressive aphasia SKIN: Warm and dry. HEAD: Normocephalic. EYES: No scleral icterus. No injection or drainage. NECK: Supple, trachea midline. No JVD or lymphadenopathy. CARDIOVASCULAR: Regular rate and rhythm without murmurs, gallops, or rubs. RESPIRATORY: Breath sounds equal bilaterally. No accessory muscle use. GASTROINTESTINAL: Abdomen soft, non-tender, nondistended. MUSCULOSKELETAL: No cyanosis, or edema. Right-sided weakness BACK: Nontender without obvious deformity. No CVA tenderness. Procedures none A/P Problem List: (1) Encephalopathy ICD Code: G93.40 - Encephalopathy, unspecified (2) CVA (cerebral vascular accident) ICD Code: I63.9 - Cerebral infarction, unspecified (3) HTN (hypertension) ICD Code: I10 - Essential (primary) hypertension (4) Tobacco abuse ICD Code: Z72.0 - Tobacco use Assessment and Plan 67-year-old female with 1. Extension of left hemisphere CVA: Appreciate neurology recommendations. Continue Coumadin. Continue PT/OT. 2. Seizure: Continue Keppra. Seizure precautions 3. Hypertension: Continue JAYLEN inhibitor, beta evonne. Vasotec as needed. 4. C. difficile colitis: Hyper virulent strain. Appreciate infectious disease recommendations. Continue oral vancomycin. 5. Bipolar disorder, agitation: Continue Seroquel. 6. Cardiomyopathy: Continue beta evonne, JAYLEN inhibitor. 7. DVT prophylaxis: Heparin. 11/25/17: Continue current treatment Discharge Planning Awaiting discharge disposition to SNF Theron Calles MD Nov 25, 2017 10:25
[2017-11-25 11:53] VITALS: BP 118/57; PULSE 94; RESP 18; TEMP 98.1; O2SAT 95
[2017-11-25 15:57] VITALS: BP 117/59; PULSE 70; RESP 18; TEMP 98.7; O2SAT 99
[2017-11-25] MEDS ORDERED: WARFARIN SOD 1 MG TAB PO ONE (16:00)
[2017-11-25] MEDS: ACETAMINOPHEN/HYDROcodone 325 MG/10 MG TAB PO PRN (16:58)
[2017-11-25] MEDS: WARFARIN SOD 2.5 MG TAB PO SCH (16:59)
[2017-11-25 20:00] VITALS: BP 132/59; PULSE 62; RESP 18; TEMP 97.2; O2SAT 100
[2017-11-26] VITALS: BP 127/77; PULSE 73; RESP 18; TEMP 98; O2SAT 98
[2017-11-26 04:50] VITALS: BP 136/60; PULSE 78; RESP 16; TEMP 97.2; O2SAT 98
[2017-11-26] MEDS: ACETAMINOPHEN/HYDROcodone 325 MG/10 MG TAB PO PRN (05:48)
[2017-11-26 07:04] LABS: INTERNATIONAL NORMALIZED RATIO 1.2 RATIO
[2017-11-26 07:56] VITALS: BP 136/61; PULSE 73; RESP 20; TEMP 97.3; O2SAT 94
[2017-11-26] MEDS: SODIUM CHLORIDE 0.9% FLUSH 10 ML FLUSH IV FLUSH SCH ×2 (08:21→21:05)
[2017-11-26] MEDS: levETIRAcetam 500 MG TAB PO SCH ×2 (08:25→20:59)
[2017-11-26] MEDS: LACTOBACILLUS ACIDOPHILUS TAB PO SCH ×3 (08:25→16:45)
[2017-11-26] MEDS: DOCUSATE SODIUM 50 MG/SENNA 8.6 MG TAB PO SCH ×2 (08:26→21:05)
[2017-11-26] MEDS: QUEtiapine FUMARATE 25 MG TAB PO SCH ×2 (08:26→12:26)
[2017-11-26] MEDS: ATORVASTATIN 10 MG TAB PO SCH (08:26)
[2017-11-26] MEDS: CARVEDILOL 3.125 MG TAB PO SCH ×2 (08:27→21:00)
[2017-11-26] MEDS: DIAZEPAM 5 MG TAB PO SCH ×2 (08:27→21:01)
[2017-11-26] MEDS: LISINOPRIL 5 MG TAB PO SCH ×2 (08:27→21:00)
[2017-11-26 11:33] VITALS: BP 137/63; PULSE 73; RESP 20; TEMP 97.6; O2SAT 97
--- NOTE | 2017-11-26 11:45 | HHI.PR ---
Subjective Remarks Follow up CVA/C-diff colitis 11/19/17-patient seen and examined; she does have expressive aphasia .no acute event overnight 11/20/17-patient seen and examined, no change , patient has been refusing some of her meds 11/21/17-patient seen and examined, stable, still with expressive aphasia. Afebrile 11/22/17-patient seen and examined, no acute event overnight, positive for expressive aphasia, no change and stable. 11/23/17-patient seen and examined, stable, afebrile, no acute event overnight 11/24/17-patient seen and examined, no change and stable. 11/25/17-patient seen and examined,+ expressive aphasia, vitals stable 11/26/17-patient seen and examined, no change, stable Objective Vitals Vital Signs Date Time Temp Pulse Resp B/P (MAP) Pulse Ox O2 Delivery O2 Flow Rate FiO2 11/26/17 11:33 97.6 73 20 137/63 (87) 97 11/26/17 07:56 97.3 73 20 136/61 (86) 94 11/26/17 04:50 97.2 78 16 136/60 (85) 98 11/26/17 00:00 98.0 73 18 127/77 (94) 98 11/25/17 20:00 97.2 62 18 132/59 (83) 100 11/25/17 15:57 98.7 70 18 117/59 (78) 99 11/25/17 11:53 98.1 94 18 118/57 (77) 95 I/O 11/25/17 11/25/17 11/25/17 11/26/17 11/26/17 11/26/17 07:00 15:00 23:00 07:00 15:00 23:00 Intake Total 360 ml Output Total 500 ml Balance -500 ml 360 ml Intake Oral 360 ml Output Urine Total 500 ml Bladder Scan Volume Amount 449 ml # Voids 1 4 2 # Bowel Movements 0 Objective Remarks GENERAL: NAD with expressive aphasia SKIN: Warm and dry. HEAD: Normocephalic. EYES: No scleral icterus. No injection or drainage. NECK: Supple, trachea midline. No JVD or lymphadenopathy. CARDIOVASCULAR: Regular rate and rhythm without murmurs, gallops, or rubs. RESPIRATORY: Breath sounds equal bilaterally. No accessory muscle use. GASTROINTESTINAL: Abdomen soft, non-tender, nondistended. MUSCULOSKELETAL: No cyanosis, or edema. Right-sided weakness BACK: Nontender without obvious deformity. No CVA tenderness. Procedures none A/P Problem List: (1) Encephalopathy ICD Code: G93.40 - Encephalopathy, unspecified (2) CVA (cerebral vascular accident) ICD Code: I63.9 - Cerebral infarction, unspecified (3) HTN (hypertension) ICD Code: I10 - Essential (primary) hypertension (4) Tobacco abuse ICD Code: Z72.0 - Tobacco use Assessment and Plan 67-year-old female with 1. Extension of left hemisphere CVA: Appreciate neurology recommendations. Continue Coumadin. Continue PT/OT. 2. Seizure: Continue Keppra. Seizure precautions 3. Hypertension: Continue JAYLEN inhibitor, beta evonne. Vasotec as needed. 4. C. difficile colitis: Hyper virulent strain. Appreciate infectious disease recommendations. Continue oral vancomycin. 5. Bipolar disorder, agitation: Continue Seroquel. 6. Cardiomyopathy: Continue beta evonne, JAYLEN inhibitor. 7. DVT prophylaxis: Heparin. 11/26/17: Continue current treatment Discharge Planning Awaiting discharge disposition to SNF Theron Calles MD Nov 26, 2017 11:45
[2017-11-26] MEDS ORDERED: WARFARIN SOD 1 MG TAB PO ONE (16:00)
[2017-11-26 16:23] VITALS: BP 135/58; PULSE 81; RESP 20; TEMP 97.5; O2SAT 96
[2017-11-26] MEDS: WARFARIN SOD 2.5 MG TAB PO SCH (16:44)
[2017-11-26 20:00] VITALS: BP 175/76; PULSE 83; RESP 18; TEMP 97.2; O2SAT 99
[2017-11-27 01:27] VITALS: BP 122/65; PULSE 79; RESP 18; TEMP 97.9; O2SAT 96
[2017-11-27 05:01] VITALS: BP 123/74; PULSE 81; RESP 18; TEMP 98; O2SAT 98
[2017-11-27 07:53] LABS: INTERNATIONAL NORMALIZED RATIO 1.3 RATIO
[2017-11-27 08:17] VITALS: BP 154/79; PULSE 88; RESP 19; TEMP 97.3; O2SAT 98
[2017-11-27] MEDS: SODIUM CHLORIDE 0.9% FLUSH 10 ML FLUSH IV FLUSH SCH ×2 (08:53→20:44)
[2017-11-27] MEDS: levETIRAcetam 500 MG TAB PO SCH ×5 (08:54→22:57)
[2017-11-27] MEDS: CARVEDILOL 3.125 MG TAB PO SCH ×5 (08:54→22:57)
[2017-11-27] MEDS: DOCUSATE SODIUM 50 MG/SENNA 8.6 MG TAB PO SCH ×4 (08:54→20:44)
[2017-11-27] MEDS: LACTOBACILLUS ACIDOPHILUS TAB PO SCH ×5 (08:54→17:30)
[2017-11-27] MEDS: LISINOPRIL 5 MG TAB PO SCH ×4 (08:54→20:40)
[2017-11-27] MEDS: ATORVASTATIN 10 MG TAB PO SCH ×3 (08:54→10:54)
[2017-11-27] MEDS: QUEtiapine FUMARATE 25 MG TAB PO SCH ×4 (08:55→12:00)
[2017-11-27] MEDS: DIAZEPAM 5 MG TAB PO SCH ×4 (08:55→20:40)
--- NOTE | 2017-11-27 10:35 | HHI.PR ---
Subjective Remarks appears and gets frustrated when expressing but appears very motivated no pain- oriented to person and place ff all commands Objective Vitals Vital Signs Date Time Temp Pulse Resp B/P (MAP) Pulse Ox O2 Delivery O2 Flow Rate FiO2 11/27/17 08:17 97.3 88 19 154/79 (104) 98 11/27/17 05:01 98.0 81 18 123/74 (90) 98 11/27/17 01:27 97.9 79 18 122/65 (84) 96 11/26/17 20:00 97.2 83 18 175/76 (109) 99 11/26/17 16:23 97.5 81 20 135/58 (83) 96 11/26/17 11:33 97.6 73 20 137/63 (87) 97 I/O 11/26/17 11/26/17 11/26/17 11/27/17 11/27/17 11/27/17 07:00 15:00 23:00 07:00 15:00 23:00 Intake Total 480 ml Balance 480 ml Intake Oral 480 ml # Voids 2 6 1 Imaging Last Impressions Chest X-Ray 11/04/17 0000 Signed Impressions: Service Date/Time: Saturday, November 04, 2017 09:26 - CONCLUSION: No acute cardiopulmonary findings identified. Known fracture of the proximal right humerus. Nikolas Stewart MD Neck CTA 10/27/17 0000 Signed Impressions: Service Date/Time: Friday, October 27, 2017 17:42 - CONCLUSION: 1. Occluded left internal carotid artery 2. Mild narrowing at the origin of the right internal carotid artery measuring 30%%. 3. Patent vertebral arteries with good flow. Price Cee MD Head CTA 10/27/17 0000 Signed Impressions: Service Date/Time: Friday, October 27, 2017 17:42 - CONCLUSION: 1. Occluded intracranial segment of the left internal carotid artery. 2. Very scant flow in the left middle cerebral artery distribution with proximal MCA occlusion. 3. Evolving large left MCA infarct. Price Cee MD Head CT 10/27/17 0000 Signed Impressions: Service Date/Time: Friday, October 27, 2017 17:34 - CONCLUSION: 1. No evidence of acute right-sided infarction. Cystic encephalomalacia involving the left middle cerebral artery distribution unchanged 2. Pansinusitis Soren Rose MD Carotid Artery Ultrasound 10/27/17 0000 Signed Impressions: Service Date/Time: Friday, October 27, 2017 16:16 - CONCLUSION: 1. Findings of left carotid occlusion. CT angiography of the carotid arteries the brain is recommended for further evaluation Soren Rose MD Brain MRI 10/26/17 0000 Signed Impressions: Service Date/Time: Thursday, October 26, 2017 16:34 - CONCLUSION: Cystic encephalomalacia involving large left middle cerebral artery ischemic infarction. There is a small focus of restricted diffusion in the posterior left frontal region without hemorrhage characteristic of extension of the infarct. Pansinusitis Soren Rose MD Radius/Ulna X-Ray 10/25/17 0000 Signed Impressions: Service Date/Time: Wednesday, October 25, 2017 20:03 - CONCLUSION: 1. No acute fracture or dislocation. No bony destructive changes. Carlton Early MD Humerus X-Ray 10/25/17 0000 Signed Impressions: Service Date/Time: Wednesday, October 25, 2017 20:09 - CONCLUSION: 1. Subacute right humeral neck fracture with Callus formation. No significant change in displacement compared with September 30. Carlton Early MD Objective Remarks awake and alert, oriented to person and place, ff commands pupils equal speech- + expressive dysphasia no nuchal rigidity lungs- no rales regular rhythm abdomen - soft extremiteis no edema, no calf tenderness motor 0/5 - right Procedures none A/P Problem List: (1) Encephalopathy ICD Code: G93.40 - Encephalopathy, unspecified (2) CVA (cerebral vascular accident) ICD Code: I63.9 - Cerebral infarction, unspecified (3) HTN (hypertension) ICD Code: I10 - Essential (primary) hypertension (4) Tobacco abuse ICD Code: Z72.0 - Tobacco use Assessment and Plan 67-year-old female with 1. 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 Continue Coumadin. Continue PT/OT. 2. Seizure: Continue Keppra. Seizure precautions 3. Hypertension: Continue JAYLEN inhibitor, beta evonne. Vasotec as needed. 4. C. difficile colitis: - no further reported diarrhea Hyper virulent strain. Appreciate infectious disease recommendations. Continue oral vancomycin. 5. Bipolar disorder, agitation: Continue Seroquel. 6. Cardiomyopathy: Continue beta evonne, JAYLEN inhibitor. 7. DVT prophylaxis: Heparin. Discharge Planning Awaiting discharge disposition to SNF- ? Steffi Bailey MD Nov 27, 2017 10:35
[2017-11-27 11:58] VITALS: BP 141/76; PULSE 88; RESP 20; TEMP 97.2; O2SAT 100
[2017-11-27 15:43] VITALS: BP 126/67; PULSE 86; RESP 20; TEMP 97.6; O2SAT 86
[2017-11-27] MEDS: WARFARIN SOD 2.5 MG TAB PO SCH (16:00)
[2017-11-27] MEDS: ACETAMINOPHEN/HYDROcodone 325 MG/5 MG TAB PO PRN (20:39)
[2017-11-27 20:51] VITALS: BP 154/75; PULSE 84; RESP 18; TEMP 97.6; O2SAT 95
[2017-11-27] MEDS: ACETAMINOPHEN/HYDROcodone 325 MG/10 MG TAB PO PRN (23:04)
[2017-11-28] VITALS (7 sets, daily range): BP systolic 101–185; BP diastolic 55–91; PULSE 65–97; RESP 16–20; TEMP 97.4–98.1; O2SAT 94–98
[2017-11-28] MEDS ORDERED: cloNIDine HCL 0.1 MG TAB PO ONE (00:15)
[2017-11-28] MEDS: SODIUM CHLORIDE 0.9% FLUSH 10 ML FLUSH IV FLUSH SCH ×2 (08:40→21:00)
[2017-11-28] MEDS: CARVEDILOL 3.125 MG TAB PO SCH ×2 (08:41→21:00)
[2017-11-28] MEDS: LISINOPRIL 5 MG TAB PO SCH ×2 (08:41→21:00)
[2017-11-28] MEDS: QUEtiapine FUMARATE 25 MG TAB PO SCH ×2 (08:48→12:00)
[2017-11-28] MEDS: levETIRAcetam 500 MG TAB PO SCH (08:48)
[2017-11-28] MEDS: DOCUSATE SODIUM 50 MG/SENNA 8.6 MG TAB PO SCH ×2 (08:48→21:00)
[2017-11-28] MEDS: DIAZEPAM 5 MG TAB PO SCH ×2 (08:48→22:19)
[2017-11-28] MEDS: LACTOBACILLUS ACIDOPHILUS TAB PO SCH ×3 (08:48→17:20)
[2017-11-28] MEDS: ATORVASTATIN 10 MG TAB PO SCH (08:48)
--- NOTE | 2017-11-28 09:46 | HHI.PR ---
Subjective Remarks awake and alert some expressive aphasia refused to take her meds- explained to her Objective Vitals Vital Signs Date Time Temp Pulse Resp B/P (MAP) Pulse Ox O2 Delivery O2 Flow Rate FiO2 11/28/17 08:15 97.7 65 16 126/59 (81) 96 11/28/17 05:04 97.5 68 18 110/55 (73) 98 11/28/17 02:12 67 101/55 (70) 11/28/17 00:46 98.0 97 18 185/91 (122) 94 11/27/17 20:51 97.6 84 18 154/75 (101) 95 11/27/17 15:43 97.6 86 20 126/67 (86) 86 11/27/17 11:58 97.2 88 20 141/76 (97) 100 I/O 11/27/17 11/27/17 11/27/17 11/28/17 11/28/17 11/28/17 07:00 15:00 23:00 07:00 15:00 23:00 Intake Total 480 ml Balance 480 ml Intake Oral 480 ml # Voids 1 4 # Bowel Movements 1 Imaging Last Impressions Chest X-Ray 11/04/17 0000 Signed Impressions: Service Date/Time: Saturday, November 04, 2017 09:26 - CONCLUSION: No acute cardiopulmonary findings identified. Known fracture of the proximal right humerus. Nikolas Stewart MD Neck CTA 10/27/17 0000 Signed Impressions: Service Date/Time: Friday, October 27, 2017 17:42 - CONCLUSION: 1. Occluded left internal carotid artery 2. Mild narrowing at the origin of the right internal carotid artery measuring 30%%. 3. Patent vertebral arteries with good flow. Price Cee MD Head CTA 10/27/17 0000 Signed Impressions: Service Date/Time: Friday, October 27, 2017 17:42 - CONCLUSION: 1. Occluded intracranial segment of the left internal carotid artery. 2. Very scant flow in the left middle cerebral artery distribution with proximal MCA occlusion. 3. Evolving large left MCA infarct. Price Cee MD Head CT 10/27/17 0000 Signed Impressions: Service Date/Time: Friday, October 27, 2017 17:34 - CONCLUSION: 1. No evidence of acute right-sided infarction. Cystic encephalomalacia involving the left middle cerebral artery distribution unchanged 2. Pansinusitis Soren Rose MD Carotid Artery Ultrasound 10/27/17 0000 Signed Impressions: Service Date/Time: Friday, October 27, 2017 16:16 - CONCLUSION: 1. Findings of left carotid occlusion. CT angiography of the carotid arteries the brain is recommended for further evaluation Soren Rose MD Brain MRI 10/26/17 0000 Signed Impressions: Service Date/Time: Thursday, October 26, 2017 16:34 - CONCLUSION: Cystic encephalomalacia involving large left middle cerebral artery ischemic infarction. There is a small focus of restricted diffusion in the posterior left frontal region without hemorrhage characteristic of extension of the infarct. Pansinusitis Soren Rose MD Radius/Ulna X-Ray 10/25/17 0000 Signed Impressions: Service Date/Time: Wednesday, October 25, 2017 20:03 - CONCLUSION: 1. No acute fracture or dislocation. No bony destructive changes. Carlton Early MD Humerus X-Ray 10/25/17 0000 Signed Impressions: Service Date/Time: Wednesday, October 25, 2017 20:09 - CONCLUSION: 1. Subacute right humeral neck fracture with Callus formation. No significant change in displacement compared with September 30. Carlton Early MD Objective Remarks awake and alert, oriented to person and place, ff commands pupils equal speech- + some expressive aphasia " right" no nuchal rigidity lungs- no rales regular rhythm abdomen - soft extremities no edema, no calf tenderness motor 0/5 - right Procedures none A/P Problem List: (1) Encephalopathy ICD Code: G93.40 - Encephalopathy, unspecified (2) CVA (cerebral vascular accident) ICD Code: I63.9 - Cerebral infarction, unspecified (3) HTN (hypertension) ICD Code: I10 - Essential (primary) hypertension (4) Tobacco abuse ICD Code: Z72.0 - Tobacco use Assessment and Plan 67-year-old female with 1. 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 Continue Coumadin. Continue PT/OT. 2. Seizure: Continue Keppra. Seizure precautions 3. Hypertension: Continue JAYLEN inhibitor, beta evonne. Vasotec as needed. 4. C. difficile colitis: - no further reported diarrhea Hyper virulent strain. Appreciate infectious disease recommendations. Continue oral vancomycin course 5. Bipolar disorder, agitation: - increase- refusing meds Continue Seroquel. 6. Cardiomyopathy: Continue beta evonne, JAYLEN inhibitor. 7. DVT prophylaxis: Heparin. d/w Dr. Mo- patient has no capacity for decision making Discharge Planning Awaiting discharge disposition to SNF- ? Steffi Bailey MD Nov 28, 2017 09:46
[2017-11-28 10:24] LABS: INTERNATIONAL NORMALIZED RATIO 1.3 RATIO
[2017-11-28 12:34] LABS: ALBUMIN 3.1 GM/DL (3.4-5.0); AST (GOT) 18 U/L (15-37); BICARBONATE 32.1 MEQ/L (21.0-32.0); BLOOD UREA NITROGEN 18 MG/DL (7-18); CALCIUM 8.9 MG/DL (8.5-10.1); CHLORIDE 101 MEQ/L (98-107); CREATININE 0.79 MG/DL (0.50-1.00); GLOMERULAR FILTRATION RATE 73 ML/MIN (>89); GLUCOSE,RANDOM 131 MG/DL (74-106); SODIUM (NA) 138 MEQ/L (136-145)
[2017-11-28 12:37] LABS: ALKALINE PHOSPHATASE 86 U/L (45-117); ALT (GPT) 16 U/L (10-53); TOTAL BILIRUBIN ADULT 0.4 MG/DL (0.2-1.0); TOTAL PROTEIN 6.9 GM/DL (6.4-8.2)
[2017-11-28] MEDS: WARFARIN SOD 2.5 MG TAB PO SCH (16:00)
[2017-11-29] VITALS: BP 126/76; PULSE 82; RESP 20; TEMP 97.5; O2SAT 97
[2017-11-29 04:22] VITALS: BP 115/52; PULSE 83; RESP 18; TEMP 98; O2SAT 96
[2017-11-29] MEDS: ACETAMINOPHEN/HYDROcodone 325 MG/5 MG TAB PO PRN (05:49)
[2017-11-29 08:35] VITALS: BP 183/83; PULSE 81; RESP 18; TEMP 97.4; O2SAT 94
[2017-11-29] MEDS: SODIUM CHLORIDE 0.9% FLUSH 10 ML FLUSH IV FLUSH SCH ×2 (08:48→20:42)
[2017-11-29] MEDS: DOCUSATE SODIUM 50 MG/SENNA 8.6 MG TAB PO SCH ×2 (08:48→21:00)
[2017-11-29] MEDS: LISINOPRIL 5 MG TAB PO SCH ×2 (08:53→20:43)
[2017-11-29] MEDS: DIAZEPAM 5 MG TAB PO SCH ×2 (08:53→20:41)
[2017-11-29] MEDS: LACTOBACILLUS ACIDOPHILUS TAB PO SCH ×3 (08:53→15:36)
[2017-11-29] MEDS: levETIRAcetam 500 MG/5 ML UDC PO SCH ×2 (08:53→20:42)
[2017-11-29] MEDS: ATORVASTATIN 10 MG TAB PO SCH (08:53)
[2017-11-29] MEDS: QUEtiapine FUMARATE 25 MG TAB PO SCH ×2 (08:53→10:39)
[2017-11-29] MEDS: CARVEDILOL 3.125 MG TAB PO SCH ×2 (08:53→20:42)
--- NOTE | 2017-11-29 09:10 | HHI.PR ---
Subjective Remarks awake and alert very guarded affect refused to take meds- keeps pills in her mouth and refuse to swallow Objective Vitals Vital Signs Date Time Temp Pulse Resp B/P (MAP) Pulse Ox O2 Delivery O2 Flow Rate FiO2 11/29/17 08:35 97.4 81 18 183/83 (116) 94 11/29/17 04:22 98.0 83 18 115/52 (73) 96 11/29/17 00:00 97.5 82 20 126/76 (93) 97 11/28/17 20:29 98.1 82 20 118/58 (78) 98 11/28/17 15:43 97.4 77 16 108/58 (75) 98 11/28/17 12:20 97.5 79 16 107/55 (72) 98 I/O 11/28/17 11/28/17 11/28/17 11/29/17 11/29/17 11/29/17 07:00 15:00 23:00 07:00 15:00 23:00 Intake Total 360 ml Balance 360 ml Intake Oral 360 ml # Voids 2 3 # Bowel Movements 1 1 Result Diagram: 11/28/17 1130 Imaging Last Impressions Chest X-Ray 11/04/17 0000 Signed Impressions: Service Date/Time: Saturday, November 04, 2017 09:26 - CONCLUSION: No acute cardiopulmonary findings identified. Known fracture of the proximal right humerus. Nikolas Stewart MD Neck CTA 10/27/17 0000 Signed Impressions: Service Date/Time: Friday, October 27, 2017 17:42 - CONCLUSION: 1. Occluded left internal carotid artery 2. Mild narrowing at the origin of the right internal carotid artery measuring 30%%. 3. Patent vertebral arteries with good flow. Price Cee MD Head CTA 10/27/17 0000 Signed Impressions: Service Date/Time: Friday, October 27, 2017 17:42 - CONCLUSION: 1. Occluded intracranial segment of the left internal carotid artery. 2. Very scant flow in the left middle cerebral artery distribution with proximal MCA occlusion. 3. Evolving large left MCA infarct. Price Cee MD Head CT 10/27/17 0000 Signed Impressions: Service Date/Time: Friday, October 27, 2017 17:34 - CONCLUSION: 1. No evidence of acute right-sided infarction. Cystic encephalomalacia involving the left middle cerebral artery distribution unchanged 2. Pansinusitis Soren Rose MD Carotid Artery Ultrasound 10/27/17 0000 Signed Impressions: Service Date/Time: Friday, October 27, 2017 16:16 - CONCLUSION: 1. Findings of left carotid occlusion. CT angiography of the carotid arteries the brain is recommended for further evaluation Soren Rose MD Brain MRI 10/26/17 0000 Signed Impressions: Service Date/Time: Thursday, October 26, 2017 16:34 - CONCLUSION: Cystic encephalomalacia involving large left middle cerebral artery ischemic infarction. There is a small focus of restricted diffusion in the posterior left frontal region without hemorrhage characteristic of extension of the infarct. Pansinusitis Soren Rose MD Radius/Ulna X-Ray 10/25/17 0000 Signed Impressions: Service Date/Time: Wednesday, October 25, 2017 20:03 - CONCLUSION: 1. No acute fracture or dislocation. No bony destructive changes. Carlton Early MD Humerus X-Ray 10/25/17 0000 Signed Impressions: Service Date/Time: Wednesday, October 25, 2017 20:09 - CONCLUSION: 1. Subacute right humeral neck fracture with Callus formation. No significant change in displacement compared with September 30. Carlton Early MD Objective Remarks awake and alert, refuse meds pupils equal speech- + some expressive aphasia no nuchal rigidity lungs- no rales regular rhythm abdomen - soft extremities no edema, no calf tenderness motor 0/5 - right Procedures none A/P Problem List: (1) Encephalopathy ICD Code: G93.40 - Encephalopathy, unspecified (2) CVA (cerebral vascular accident) ICD Code: I63.9 - Cerebral infarction, unspecified (3) HTN (hypertension) ICD Code: I10 - Essential (primary) hypertension (4) Tobacco abuse ICD Code: Z72.0 - Tobacco use Assessment and Plan 67-year-old female with 1. 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 Continue Coumadin. Continue PT/OT. 2. Seizure: Continue Keppra. Seizure precautions 3. Hypertension: Continue JAYLEN inhibitor, beta evonne. Vasotec as needed. 4. C. difficile colitis: - no further reported diarrhea Hyper virulent strain. Appreciate infectious disease recommendations. Continue and complete oral vancomycin course 5. Bipolar disorder, agitation: - increase- refusing meds Continue Seroquel. 6. Cardiomyopathy: Continue beta evonne, JAYLEN inhibitor. 7. DVT prophylaxis: Heparin. d/w Dr. Mo- patient has no capacity for decision making I concur that patient has no capacity for decision making Discharge Planning Awaiting discharge disposition to SNF- - [facility]ab[facility] cru[facility] along with Steffi Naranjo MD Nov 29, 2017 09:10
[2017-11-29 12:41] VITALS: BP 161/69; PULSE 79; RESP 18; TEMP 97.5; O2SAT 95
[2017-11-29] MEDS: WARFARIN SOD 2.5 MG TAB PO SCH ×2 (15:36→15:51)
[2017-11-29 16:51] VITALS: BP 160/71; PULSE 85; RESP 18; TEMP 97.4; O2SAT 100
[2017-11-29 20:00] VITALS: BP 137/71; PULSE 99; RESP 18; TEMP 99; O2SAT 98
[2017-11-30] VITALS: BP 130/59; PULSE 87; RESP 18; TEMP 98.5; O2SAT 98
[2017-11-30 03:57] VITALS: BP 160/67; PULSE 71; RESP 20; TEMP 98; O2SAT 98
[2017-11-30] MEDS: ACETAMINOPHEN/HYDROcodone 325 MG/5 MG TAB PO PRN (06:47)
[2017-11-30 08:00] VITALS: BP 187/96; PULSE 97; RESP 18; TEMP 97.5; O2SAT 99
[2017-11-30 08:22] LABS: INTERNATIONAL NORMALIZED RATIO 1.1 RATIO; PROTHROMBIN TIME - PATIENT 11.1 SEC (9.8-11.6)
[2017-11-30] MEDS: QUEtiapine FUMARATE 25 MG TAB PO SCH ×2 (08:23→12:00)
[2017-11-30] MEDS: LISINOPRIL 5 MG TAB PO SCH ×2 (08:23→21:00)
[2017-11-30] MEDS: ATORVASTATIN 10 MG TAB PO SCH (08:24)
[2017-11-30] MEDS: DIAZEPAM 5 MG TAB PO SCH ×2 (08:24→21:00)
[2017-11-30] MEDS: LACTOBACILLUS ACIDOPHILUS TAB PO SCH ×3 (08:24→17:17)
[2017-11-30] MEDS: CARVEDILOL 3.125 MG TAB PO SCH ×2 (08:25→21:00)
[2017-11-30] MEDS: levETIRAcetam 500 MG/5 ML UDC PO SCH ×2 (08:27→21:00)
[2017-11-30] MEDS: DOCUSATE SODIUM 50 MG/SENNA 8.6 MG TAB PO SCH ×2 (08:31→21:00)
[2017-11-30] MEDS: SODIUM CHLORIDE 0.9% FLUSH 10 ML FLUSH IV FLUSH SCH ×2 (08:34→21:00)
--- NOTE | 2017-11-30 10:03 | HHI.PR ---
Subjective Remarks patient continues to be uncooperative but not aggressive refusing meds Objective Vitals Vital Signs Date Time Temp Pulse Resp B/P (MAP) Pulse Ox O2 Delivery O2 Flow Rate FiO2 11/30/17 08:00 97.5 97 18 187/96 (126) 99 11/30/17 03:57 98.0 71 20 160/67 (98) 98 11/30/17 00:00 98.5 87 18 130/59 (82) 98 11/29/17 20:00 99.0 99 18 137/71 (93) 98 11/29/17 16:51 97.4 85 18 160/71 (100) 100 11/29/17 12:41 97.5 79 18 161/69 (99) 95 I/O 11/29/17 11/29/17 11/29/17 11/30/17 11/30/17 11/30/17 07:00 15:00 23:00 07:00 15:00 23:00 # Voids 3 1 2 2 # Bowel Movements 2 Result Diagram: 11/28/17 1130 Imaging Last Impressions Chest X-Ray 11/04/17 0000 Signed Impressions: Service Date/Time: Saturday, November 04, 2017 09:26 - CONCLUSION: No acute cardiopulmonary findings identified. Known fracture of the proximal right humerus. Nikolas Stewart MD Neck CTA 10/27/17 0000 Signed Impressions: Service Date/Time: Friday, October 27, 2017 17:42 - CONCLUSION: 1. Occluded left internal carotid artery 2. Mild narrowing at the origin of the right internal carotid artery measuring 30%%. 3. Patent vertebral arteries with good flow. Price Cee MD Head CTA 10/27/17 0000 Signed Impressions: Service Date/Time: Friday, October 27, 2017 17:42 - CONCLUSION: 1. Occluded intracranial segment of the left internal carotid artery. 2. Very scant flow in the left middle cerebral artery distribution with proximal MCA occlusion. 3. Evolving large left MCA infarct. Price Cee MD Head CT 10/27/17 0000 Signed Impressions: Service Date/Time: Friday, October 27, 2017 17:34 - CONCLUSION: 1. No evidence of acute right-sided infarction. Cystic encephalomalacia involving the left middle cerebral artery distribution unchanged 2. Pansinusitis Soren Rose MD Carotid Artery Ultrasound 10/27/17 0000 Signed Impressions: Service Date/Time: Friday, October 27, 2017 16:16 - CONCLUSION: 1. Findings of left carotid occlusion. CT angiography of the carotid arteries the brain is recommended for further evaluation Soren Rose MD Brain MRI 10/26/17 0000 Signed Impressions: Service Date/Time: Thursday, October 26, 2017 16:34 - CONCLUSION: Cystic encephalomalacia involving large left middle cerebral artery ischemic infarction. There is a small focus of restricted diffusion in the posterior left frontal region without hemorrhage characteristic of extension of the infarct. Pansinusitis Soren Rose MD Radius/Ulna X-Ray 10/25/17 0000 Signed Impressions: Service Date/Time: Wednesday, October 25, 2017 20:03 - CONCLUSION: 1. No acute fracture or dislocation. No bony destructive changes. Carlton Early MD Humerus X-Ray 10/25/17 0000 Signed Impressions: Service Date/Time: Wednesday, October 25, 2017 20:09 - CONCLUSION: 1. Subacute right humeral neck fracture with Callus formation. No significant change in displacement compared with September 30. Carlton Early MD Objective Remarks awake and alert, pupils equal speech- + some expressive aphasia no nuchal rigidity lungs- no rales regular rhythm abdomen - soft extremities no edema, no calf tenderness motor 0/5 - right Procedures none A/P Problem List: (1) Encephalopathy ICD Code: G93.40 - Encephalopathy, unspecified (2) CVA (cerebral vascular accident) ICD Code: I63.9 - Cerebral infarction, unspecified (3) HTN (hypertension) ICD Code: I10 - Essential (primary) hypertension (4) Tobacco abuse ICD Code: Z72.0 - Tobacco use Assessment and Plan 67-year-old female with 1. 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 Continue Coumadin. Continue PT/OT. 2. Seizure: Continue Keppra. Seizure precautions 3. Hypertension: Continue JAYLEN inhibitor, beta evonne. Vasotec as needed. 4. C. difficile colitis: - no further reported diarrhea Hyper virulent strain. Appreciate infectious disease recommendations. Continue and complete oral vancomycin course 5. Bipolar disorder, agitation: - increase- refusing meds Continue Seroquel. Consult Psychiatry- for evaluation and transfer to med psychiatry unit to adjust meds Garcia Act if needed 6. Cardiomyopathy: Continue beta evonne, JAYLEN inhibitor. 7. DVT prophylaxis: Heparin. d/w Dr. Mo- patient has no capacity for decision making agrees with consult with Psychiatry- and transfer to [facility] spychiatry floor to better manage behavior He will continue to ff patient with us there Discharge Planning Awaiting discharge disposition to SNF- - gabbi [facility]ON[facility] ff along with Steffi Naranjo MD Nov 30, 2017 10:03
[2017-11-30 12:00] VITALS: BP 122/56; PULSE 72; RESP 18; TEMP 97.4; O2SAT 99
--- NOTE | 2017-11-30 15:00 | PD.PSY.CON ---
Provisional Diagnosis Admission Date Oct 27, 2017 at 13:11 [place] I. Delirium due to underlying medical conditions, history of bipolar disorder [place] II. Deferred [place] III. CVA, HTN History of Present Illness Service Psychiatry Consult Requested By Dr. North Reason for Consult Refusing meds Primary Care Physician Raymundo David MD HPI The patient is a 67-year-old woman, single, domiciled in a residential facility, [facility], supported by Social Security, with psychiatric history of bipolar disorder, about 4 hospitalizations in the past, last hospitalization was over 10 years ago, previous suicidal attempts, past medical history of Residual Aphasia, Right Hemiplegia and Left Hemiparesis, HTN, DM, who was sent to the ER from [facility] secondary to acute AMS. Per report, pt wheeled herself outside to smoke and was found slumped over in her wheelchair. Pt unable to provide history due to aphasia and previous CVA. No reported seizure like activity at that time. Upon arrival to ER, pt's Sister reports pt back to baseline mental status. BP 194/90, HR 78, O2 sat 98% on RA, Afebrile. CBC unremarkable. Chemistry essentially unremarkable. Troponin negative. INR 1.1. UA pending. CXR with no acute findings. CT Head was stable remote left MCA infarct. Consulted to psychiatry due to agitation and behavioral dysregulation in the medical floor. As per nursing charge the patient this morning woke up very agitated, combative, ballistic she tried to hit the nurse was not following verbal directions. Patient was medicated with Haldol 2.5 mg IM to help her to calm down. I have reviewed the charge. I called her son Donald Uribe, who was the one who told me that the patient has history of bipolar disorder with multiple psychiatric hospitalizations, she was in multiple medications in the past but he doesn't remember the names. She has history of poor impulse control and becoming aggressive. At baseline patient can communicate poorly due to his incoherence post CVA. On this evaluation the patient was very sleepy , sedated, difficult to engage due to recent ETO. Patient stated she was doing okay, she doesn't know the reason she is here, she doesn't know what she is, and immediately fell asleep. 11/03/17 - Patient is a 67-year-old woman, single, domiciled residential facility, unemployed on SSI, past psychiatric history of bipolar disorder as per chart, previous psychiatric hospitalizations, previous suicide attempts with a past medical history significant for previous CVA with residual aphasia, right hemiplegia, left hemiparesis, hypertension, diabetes was reviewed to the medical service for altered mental status and during admission had began to refuse medications which psychiatry was consulted for decisional capacity. Discussion she staff reported the patient had been refusing by mouth intake and inconsistent patient compliant with medications but has been taking with much encouragement. Patient was found lying in hospital bed noted to be lethargic likely continue sedation from recent administration of Zyprexa IM this morning. Patient at this time appears to sedated to participate in interview effectively despite multiple attempts to try to engage patient to wake up and engage in interview. Patient will require reevaluation once effects of sedation have abated patient is alert and able to interact effectively in interview. 11/30/17 - The patient is a 67-year-old woman, single, domiciled in a residential facility, [facility], supported by Social Security, with psychiatric history of bipolar disorder, about 4 hospitalizations in the past, last hospitalization was over 10 years ago, previous suicidal attempts, past medical history of residual aphasia, Right Hemiplegia and Left Hemiparesis, HTN, DM, who was sent to the ER from [facility] secondary to acute AMS and admitted to the medical floor for encephalopathy, CVA with RT hemiplegia and dysarthria which psychiatry was re- consulted due to patient refusing medications. Discussion with nursing staff reported that the patient has aphasia which has been difficult to communicate with the patient but has not been aggressive or agitated recently and taking medications inconsistently which patient did take this morning. Patient was found lying on hospital bed, noted to be alert and cooperative with interview. Patient is noted to have aphasia which she is unable to express extensively or elaborate answers to questions but able to answer concrete questions. She is noted to have frustration with being unable to express herself verbally secondary to the speech impediments but denied having any acute psychotic symptom, not endorsing suicidal or homicidal ideations, nor any perceptual disturbances or delusions. Importance of continuing her medical treatment (i.e. medications) were reviewed which she agreed to comply with. Review of chart patient has had inconsistencies in adherence but recently has been compliant with no noted episodes of agitation requiring ETOs or restraints. Previous episodes of agitation likely from related frustration of communication. Past Family Social History Coded Allergies: No Known Allergies (Verified Allergy, Unknown, 10/25/17) Active Scripts Warfarin (Coumadin) 2.5 Mg Tab, 2.5 MG PO DAILY@1600 for Prevent Blood Clot, # 30 TAB Prov:Theron Calles MD 11/23/17 Hydrocodone-Acetaminophen (Hydrocodone-Acetaminophen) 5-325 mg Tab, 1 TAB PO Q6H Y for PAIN, #20 TAB 0 Refills Prov:Abram Hlil MD 11/08/17 Diazepam (Valium) 5 Mg Tab, 5 MG PO Q12HR for Anxiety and/or Insomnia, #30 TAB Prov:Abram Hill MD 11/08/17 Atorvastatin (Lipitor) 10 Mg Tab, 10 MG PO DAILY for Cholesterol Management, # 30 TAB Prov:Wilfred Martin MD 05/28/17 Reported Medications Aspirin (Aspirin) 325 Mg Tab, 325 MG PO DAILY, #30 TAB 0 Refills 01/22/17 Current Medications Medications (Trade) Dose Ordered Sig/Dylon Route Start Time Stop Time Status Last Admin (Zofran Inj) 4 mg Q6H PRN IVP 10/25/17 20:15 (Tylenol) 650 mg Q6H PRN PO 10/25/17 20:15 11/04/17 17:50 ([place] 5-325 Mg) 1 tab Q4H PRN PO 10/25/17 20:15 11/30/17 06:47 (Aleah-Colace) 1 tab BID PO 10/25/17 21:00 11/30/17 08:31 (Milk Of Magnesia Liq) 30 ml Q12H PRN PO 10/25/17 20:15 11/11/17 09:36 (Senokot) 17.2 mg Q12H PRN PO 10/25/17 20:15 11/17/17 10:02 (Dulcolax Supp) 10 mg DAILY PRN RECTAL 10/25/17 20:15 (Lactulose Liq) 30 ml DAILY PRN PO 10/25/17 20:15 10/31/17 08:40 (Lipitor) 10 mg DAILY PO 10/26/17 09:00 11/30/17 08:24 (Valium) 5 mg Q12HR PO 10/25/17 21:00 11/30/17 08:24 (Ativan Inj) 1 mg Q6HR PRN IV PUSH 10/26/17 15:00 (Vasotec Inj) 1.25 mg Q8H PRN IV PUSH 10/27/17 13:45 11/12/17 17:53 (NS Flush) 2 ml BID IV FLUSH 10/27/17 21:00 11/27/17 20:44 (NS Flush) 2 ml UNSCH PRN IV FLUSH 10/27/17 21:00 (Morphine Inj) 1 mg Q4H PRN IV 10/28/17 08:15 (Morphine Inj) 2 mg Q4H PRN IV 10/28/17 08:15 11/06/17 17:48 (SEROquel) 50 mg BID@09,12 PO 11/01/17 09:00 11/30/17 08:23 (Coreg) 3.125 mg Q12HR PO 10/31/17 21:00 Future hold 11/30/17 08:25 (Pill Splitter) 1 ea UNSCH PRN OTHER 10/31/17 16:45 (ZyPREXA INJ) 10 mg Q12H PRN IM 11/01/17 13:15 11/03/17 07:37 Pharmacy Profile Note 0 ml @ 0 mls/hr UNSCH OTHER 11/02/17 08:45 Future Hold (Albuterol Neb) 0.63 mg Q4HR NEB PRN NEB 11/04/17 09:00 (Lactinex) 1 tab TID PO 11/04/17 09:00 11/30/17 08:24 (Prinivil) 5 mg BID PO 11/08/17 21:00 11/30/17 08:23 (Coumadin) 2.5 mg DAILY@1600 PO 11/16/17 16:00 Future hold 11/26/17 16:44 (Keppra Liq) 1,000 mg Q12HR PO 11/29/17 09:00 11/30/17 08:27 Patient's Strengths (min. 2) She has the support of her son Physical Exam Vital Signs Vital Signs Date Time Temp Pulse Resp B/P (MAP) Pulse Ox O2 Delivery O2 Flow Rate FiO2 11/30/17 12:00 97.4 72 18 122/56 (78) 99 Lab Results Test 11/30/17 07:42 Prothrombin Time 11.1 SEC Prothromb Time International Ratio 1.1 RATIO Date/Time Source Procedure Growth Status 11/04/17 10:49 Blood Peripheral Aerobic Blood Culture - Final NO GROWTH IN 5 DAYS Complete 11/04/17 10:49 Blood Peripheral Anaerobic Blood Culture - Final NO GROWTH IN 5 DAYS Complete 10/25/17 20:00 Urine Catheterized Urine Urine Culture - Final 10-50,000 CFU/ML MIXED GRAM POSITIVE ... Complete Mental Status Examination Appearance: Disheveled Consciousness: Alert, Clouded Orientation: Person Motor Activity: Abnormal gait Speech: Speech impediment Language: Other Attention and Concentration: Inadequate Memory: Impaired Mood: Anxious Affect: Anxious Thought Process & Associations: Other (concrete due to speech impediment) Thought Content: Other (concrete) Hallucination Type: None Suicidal Ideation: No Suicidal Plan: No Suicidal Intention: No Homicidal Ideation: No Homicidal Plan: No Homicidal Intention: No Insight: Fair Judgment: Impulsive Assessment & Plan Problem List: (1) Delirium due to another medical condition ICD Codes: F05 - Delirium due to known physiological condition (2) CVA (cerebral vascular accident) ICD Codes: I63.9 - Cerebral infarction, unspecified Assessment & Plan Patient at this time has notable frustration due to difficulty with communication secondary to sequelae from previous CVAs. No overt or acute psychiatric symptom elicited but interview limited from communication difficulty. Patient has had inconsistent adherence to treatment and has not refused completely but noted to comply with much encouragement. Patient has not had any recent episodes of agitation. Recommend to continue to encourage patient to continue compliance but does not require inpatient psychiatry admission at this time and can continue with current management. continue current psychotropic regimen. Will continue to follow. Consult appreciated. Theron Walker MD Nov 30, 2017 15:00
[2017-11-30 16:00] VITALS: BP 125/58; PULSE 74; RESP 18; TEMP 97.5; O2SAT 99
[2017-11-30] MEDS: WARFARIN SOD 2.5 MG TAB PO SCH (17:17)
[2017-11-30 20:00] VITALS: BP 120/67; PULSE 68; RESP 19; TEMP 98.1; O2SAT 96
[2017-12-01] VITALS: BP 125/75; PULSE 69; RESP 19; TEMP 97.9; O2SAT 97
[2017-12-01 05:00] VITALS: BP 130/76; PULSE 68; RESP 19; TEMP 98.1; O2SAT 98
[2017-12-01] MEDS: levETIRAcetam 500 MG/5 ML UDC PO SCH ×2 (07:07→21:00)
[2017-12-01] MEDS: LACTOBACILLUS ACIDOPHILUS TAB PO SCH ×3 (07:07→14:13)
[2017-12-01] MEDS: SODIUM CHLORIDE 0.9% FLUSH 10 ML FLUSH IV FLUSH SCH ×2 (07:07→21:00)
[2017-12-01] MEDS: ATORVASTATIN 10 MG TAB PO SCH (07:07)
[2017-12-01] MEDS: CARVEDILOL 3.125 MG TAB PO SCH ×2 (07:07→21:00)
[2017-12-01] MEDS: DOCUSATE SODIUM 50 MG/SENNA 8.6 MG TAB PO SCH ×2 (07:08→21:00)
[2017-12-01] MEDS: QUEtiapine FUMARATE 25 MG TAB PO SCH ×3 (07:08→15:00)
[2017-12-01] MEDS: LISINOPRIL 5 MG TAB PO SCH ×2 (07:08→21:00)
[2017-12-01] MEDS: DIAZEPAM 5 MG TAB PO SCH ×3 (07:08→21:00)
[2017-12-01 08:00] VITALS: BP 175/79; PULSE 81; RESP 18; TEMP 97.9; O2SAT 98
[2017-12-01] MEDS: WARFARIN SOD 2.5 MG TAB PO SCH (10:31)
--- NOTE | 2017-12-01 10:36 | HHI.PR ---
Subjective Remarks awake and alert, "no" to everything refusing to take meds at all or eat but otherwise she is not aggressive Objective Vitals Vital Signs Date Time Temp Pulse Resp B/P (MAP) Pulse Ox O2 Delivery O2 Flow Rate FiO2 12/01/17 08:00 97.9 81 18 175/79 (111) 98 12/01/17 05:00 98.1 68 19 130/76 (94) 98 12/01/17 00:00 97.9 69 19 125/75 (92) 97 11/30/17 20:00 98.1 68 19 120/67 (84) 96 11/30/17 16:00 97.5 74 18 125/58 (80) 99 11/30/17 12:00 97.4 72 18 122/56 (78) 99 I/O 11/30/17 11/30/17 11/30/17 12/01/17 12/01/17 12/01/17 07:00 15:00 23:00 07:00 15:00 23:00 Intake Total 500 ml 100 ml Balance 500 ml 100 ml Intake Oral 500 ml 100 ml # Voids 2 7 6 # Bowel Movements 0 2 Result Diagram: 11/28/17 1130 Imaging Last Impressions Chest X-Ray 11/04/17 0000 Signed Impressions: Service Date/Time: Saturday, November 04, 2017 09:26 - CONCLUSION: No acute cardiopulmonary findings identified. Known fracture of the proximal right humerus. Nikolas Stewart MD Neck CTA 10/27/17 0000 Signed Impressions: Service Date/Time: Friday, October 27, 2017 17:42 - CONCLUSION: 1. Occluded left internal carotid artery 2. Mild narrowing at the origin of the right internal carotid artery measuring 30%%. 3. Patent vertebral arteries with good flow. Price Cee MD Head CTA 10/27/17 0000 Signed Impressions: Service Date/Time: Friday, October 27, 2017 17:42 - CONCLUSION: 1. Occluded intracranial segment of the left internal carotid artery. 2. Very scant flow in the left middle cerebral artery distribution with proximal MCA occlusion. 3. Evolving large left MCA infarct. Price Cee MD Head CT 10/27/17 0000 Signed Impressions: Service Date/Time: Friday, October 27, 2017 17:34 - CONCLUSION: 1. No evidence of acute right-sided infarction. Cystic encephalomalacia involving the left middle cerebral artery distribution unchanged 2. Pansinusitis Soren Rose MD Carotid Artery Ultrasound 10/27/17 0000 Signed Impressions: Service Date/Time: Friday, October 27, 2017 16:16 - CONCLUSION: 1. Findings of left carotid occlusion. CT angiography of the carotid arteries the brain is recommended for further evaluation Soren Rose MD Brain MRI 10/26/17 0000 Signed Impressions: Service Date/Time: Thursday, October 26, 2017 16:34 - CONCLUSION: Cystic encephalomalacia involving large left middle cerebral artery ischemic infarction. There is a small focus of restricted diffusion in the posterior left frontal region without hemorrhage characteristic of extension of the infarct. Pansinusitis Soren Rose MD Radius/Ulna X-Ray 10/25/17 0000 Signed Impressions: Service Date/Time: Wednesday, October 25, 2017 20:03 - CONCLUSION: 1. No acute fracture or dislocation. No bony destructive changes. Carlton Early MD Humerus X-Ray 10/25/17 0000 Signed Impressions: Service Date/Time: Wednesday, October 25, 2017 20:09 - CONCLUSION: 1. Subacute right humeral neck fracture with Callus formation. No significant change in displacement compared with September 30. Carlton Early MD Objective Remarks awake and alert, pupils equal speech- + some expressive aphasia no nuchal rigidity lungs- no rales regular rhythm abdomen - soft extremities no edema, no calf tenderness motor 0/5 - right Procedures none A/P Problem List: (1) Encephalopathy ICD Code: G93.40 - Encephalopathy, unspecified (2) CVA (cerebral vascular accident) ICD Code: I63.9 - Cerebral infarction, unspecified (3) HTN (hypertension) ICD Code: I10 - Essential (primary) hypertension (4) Tobacco abuse ICD Code: Z72.0 - Tobacco use Assessment and Plan 67-year-old female with 1. 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 Continue Coumadin. Continue PT/OT. 2. Seizure: Continue Keppra. Seizure precautions 3. Hypertension: Continue JAYLEN inhibitor, beta evonne. Vasotec as needed. 4. C. difficile colitis: - no further reported diarrhea Hyper virulent strain. Appreciate infectious disease recommendations. Continue and complete oral vancomycin course 5. Bipolar disorder, agitation: - increase- refusing meds Continue Seroquel. seen by Psychiatry 6. Cardiomyopathy: Continue beta evonne, JAYLEN inhibitor. 7. DVT prophylaxis: Heparin. 8. right subacute humeral fracture- PT. needs to keep sling in place d/w Dr. Mo- patient has no capacity for decision making seen by Psychiatry-deemed not candidate for inpatient psyc d/w staff- will try our best to encourage her to eat Discharge Planning Awaiting discharge disposition to SNF- - [facility] along with us will discusss with palliative care team in am- regarding " PEG" for nutrtion- patient refusing everything Steffi North MD Dec 01, 2017 10:36
[2017-12-01 12:00] VITALS: BP 146/67; PULSE 94; RESP 18; TEMP 98.2; O2SAT 99
[2017-12-01 20:00] VITALS: BP 120/84; PULSE 64; RESP 19; TEMP 98.1; O2SAT 96
[2017-12-01 23:45] VITALS: BP 125/88; PULSE 65; RESP 19; TEMP 97.6; O2SAT 95
[2017-12-02 04:00] VITALS: BP 130/88; PULSE 66; RESP 19; TEMP 98; O2SAT 95
[2017-12-02 07:53] VITALS: BP 181/86; PULSE 93; RESP 19; TEMP 97.4; O2SAT 94
[2017-12-02] MEDS: LACTOBACILLUS ACIDOPHILUS TAB PO SCH ×3 (08:14→15:52)
[2017-12-02] MEDS: ATORVASTATIN 10 MG TAB PO SCH (08:14)
[2017-12-02] MEDS: CARVEDILOL 3.125 MG TAB PO SCH ×3 (08:14→22:06)
[2017-12-02] MEDS: DOCUSATE SODIUM 50 MG/SENNA 8.6 MG TAB PO SCH ×3 (08:14→22:07)
[2017-12-02] MEDS: levETIRAcetam 500 MG/5 ML UDC PO SCH ×3 (08:14→22:06)
[2017-12-02] MEDS: SODIUM CHLORIDE 0.9% FLUSH 10 ML FLUSH IV FLUSH SCH ×2 (08:14→21:00)
[2017-12-02] MEDS: DIAZEPAM 5 MG TAB PO SCH ×3 (08:15→22:06)
[2017-12-02] MEDS: LISINOPRIL 5 MG TAB PO SCH ×3 (08:15→22:06)
[2017-12-02] MEDS: QUEtiapine FUMARATE 25 MG TAB PO SCH ×2 (08:15→11:01)
[2017-12-02 09:23] LABS: INTERNATIONAL NORMALIZED RATIO 1.1 RATIO; PROTHROMBIN TIME - PATIENT 11.4 SEC (9.8-11.6)
[2017-12-02 09:50] VITALS: O2SAT 95
--- NOTE | 2017-12-02 10:53 | HHI.PR ---
Subjective Remarks awake and alert, with me on exam- cooperative and gets calm episodes of agitation- Objective Vitals Vital Signs Date Time Temp Pulse Resp B/P (MAP) Pulse Ox O2 Delivery O2 Flow Rate FiO2 12/02/17 09:50 95 12/02/17 07:53 97.4 93 19 181/86 (117) 94 12/02/17 04:00 98.0 66 19 130/88 (102) 95 12/01/17 23:45 97.6 65 19 125/88 (100) 95 12/01/17 20:00 98.1 64 19 120/84 (96) 96 12/01/17 12:00 98.2 94 18 146/67 (93) 99 I/O 12/01/17 12/01/17 12/01/17 12/02/17 12/02/17 12/02/17 07:00 15:00 23:00 07:00 15:00 23:00 Intake Total 100 ml 400 ml 100 ml Balance 100 ml 400 ml 100 ml Intake Oral 100 ml 400 ml TPN/PPN 100 ml # Voids 6 4 6 # Bowel Movements 2 0 1 Result Diagram: 11/28/17 1130 Imaging Last Impressions Chest X-Ray 11/04/17 0000 Signed Impressions: Service Date/Time: Saturday, November 04, 2017 09:26 - CONCLUSION: No acute cardiopulmonary findings identified. Known fracture of the proximal right humerus. Nikolas Stewart MD Neck CTA 10/27/17 0000 Signed Impressions: Service Date/Time: Friday, October 27, 2017 17:42 - CONCLUSION: 1. Occluded left internal carotid artery 2. Mild narrowing at the origin of the right internal carotid artery measuring 30%%. 3. Patent vertebral arteries with good flow. Price Cee MD Head CTA 10/27/17 0000 Signed Impressions: Service Date/Time: Friday, October 27, 2017 17:42 - CONCLUSION: 1. Occluded intracranial segment of the left internal carotid artery. 2. Very scant flow in the left middle cerebral artery distribution with proximal MCA occlusion. 3. Evolving large left MCA infarct. Price Cee MD Head CT 10/27/17 0000 Signed Impressions: Service Date/Time: Friday, October 27, 2017 17:34 - CONCLUSION: 1. No evidence of acute right-sided infarction. Cystic encephalomalacia involving the left middle cerebral artery distribution unchanged 2. Pansinusitis Soren Rose MD Carotid Artery Ultrasound 10/27/17 0000 Signed Impressions: Service Date/Time: Friday, October 27, 2017 16:16 - CONCLUSION: 1. Findings of left carotid occlusion. CT angiography of the carotid arteries the brain is recommended for further evaluation Soren Rose MD Brain MRI 10/26/17 0000 Signed Impressions: Service Date/Time: Thursday, October 26, 2017 16:34 - CONCLUSION: Cystic encephalomalacia involving large left middle cerebral artery ischemic infarction. There is a small focus of restricted diffusion in the posterior left frontal region without hemorrhage characteristic of extension of the infarct. Pansinusitis Soren Rose MD Radius/Ulna X-Ray 10/25/17 0000 Signed Impressions: Service Date/Time: Wednesday, October 25, 2017 20:03 - CONCLUSION: 1. No acute fracture or dislocation. No bony destructive changes. Carlton Early MD Humerus X-Ray 10/25/17 0000 Signed Impressions: Service Date/Time: Wednesday, October 25, 2017 20:09 - CONCLUSION: 1. Subacute right humeral neck fracture with Callus formation. No significant change in displacement compared with September 30. Carlton Early MD Objective Remarks awake and alert, pupils equal speech- + mild expressive aphasia no nuchal rigidity lungs- no rales regular rhythm abdomen - soft extremities no edema, no calf tenderness motor 0/5 -RUE-+ pain on exam LE- no edema, no calf tenderness Procedures none A/P Problem List: (1) Encephalopathy ICD Code: G93.40 - Encephalopathy, unspecified (2) CVA (cerebral vascular accident) ICD Code: I63.9 - Cerebral infarction, unspecified (3) HTN (hypertension) ICD Code: I10 - Essential (primary) hypertension (4) Tobacco abuse ICD Code: Z72.0 - Tobacco use Assessment and Plan 67-year-old female with 1. 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 Continue Coumadin. Continue PT/OT. 2. Seizure: Continue Keppra. Seizure precautions 3. Hypertension: Continue JAYLEN inhibitor, beta evonne. Vasotec as needed. 4. C. difficile colitis: - no further reported diarrhea Hyper virulent strain. Appreciate infectious disease recommendations. Continue and complete oral vancomycin course 5. Bipolar disorder, agitation: - increase- refusing meds Continue Seroquel. seen by Psychiatry 6. Cardiomyopathy: Continue beta evonne, JAYLEN inhibitor. 7. DVT prophylaxis: Heparin. 8. right subacute humeral fracture- occurred 09/30- ER - never got to see an Ortho referral from SNF seems to be in more pain get Ortho consult get another XR d/w Dr. Mo- patient has no capacity for decision making seen by Psychiatry-deemed not candidate for inpatient psyc d/w staff- will try our best to encourage her to eat Discharge Planning Awaiting discharge disposition to SNF- - [facility] along with us will discusss with palliative care team in am- regarding " PEG" for nutrtion- patient refusing everything Steffi North MD Dec 02, 2017 10:53
[2017-12-02] MEDS: ACETAMINOPHEN/HYDROcodone 325 MG/5 MG TAB PO PRN (11:01)
[2017-12-02] MEDS: WARFARIN SOD 2.5 MG TAB PO SCH (11:01)
[2017-12-02 11:47] VITALS: BP 130/68; PULSE 80; RESP 20; TEMP 97.6; O2SAT 100
--- NOTE | 2017-12-02 12:07 | RADRPT ---
EXAM DATE/TIME: 12/02/2017 11:08 [facility] COMPARISON: CHEST SINGLE AP, November 04, 2017, 9:26. INDICATIONS : Fracture MEDICAL HISTORY : Stroke. Hypertension Diabetes mellitus type II. SVT SURGICAL HISTORY : None. ENCOUNTER: Initial ACUITY: 3 weeks PAIN SCORE: Non-responsive. LOCATION: Right HUMERUS FINDINGS: The examination is to the proximal femurs with extension into the head. There are degenerative change s with some degree of healing of the fracture. This was present on previous of 11/04/17 CONCLUSION: 1. Fracture through the proximal humerus. There is periosteal bone formation suggesting healing. Nikolas Stewart MD on December 02, 2017 at 11:41 Board Certified Radiologist. This report was verified electronically.
[2017-12-02] MEDS ORDERED: WARFARIN SOD 1 MG TAB PO ONE (16:00)
[2017-12-02 16:05] VITALS: BP 137/58; PULSE 72; RESP 20; TEMP 97.3; O2SAT 96
[2017-12-02 21:33] VITALS: BP 170/70; PULSE 86; RESP 20; TEMP 97.4; O2SAT 92
[2017-12-03 08:00] VITALS: BP 137/65; PULSE 99; RESP 20; TEMP 98.7; O2SAT 98
[2017-12-03] MEDS: SODIUM CHLORIDE 0.9% FLUSH 10 ML FLUSH IV FLUSH SCH ×2 (08:55→21:00)
[2017-12-03] MEDS: LACTOBACILLUS ACIDOPHILUS TAB PO SCH ×3 (09:00→17:02)
[2017-12-03] MEDS: DOCUSATE SODIUM 50 MG/SENNA 8.6 MG TAB PO SCH ×2 (09:00→23:13)
[2017-12-03] MEDS: LISINOPRIL 5 MG TAB PO SCH ×2 (09:00→23:13)
[2017-12-03] MEDS: QUEtiapine FUMARATE 25 MG TAB PO SCH ×2 (09:00→11:22)
[2017-12-03] MEDS: ATORVASTATIN 10 MG TAB PO SCH (09:00)
[2017-12-03] MEDS: CARVEDILOL 3.125 MG TAB PO SCH ×2 (09:00→23:12)
[2017-12-03] MEDS: levETIRAcetam 500 MG/5 ML UDC PO SCH ×3 (09:00→23:14)
[2017-12-03] MEDS: DIAZEPAM 5 MG TAB PO SCH ×2 (09:00→23:12)
--- NOTE | 2017-12-03 10:15 | HHI.PR ---
Subjective Remarks awake and up on the chair, interactive no pain complains on her right shoulder ate 75% of her meals by herself- but refused to take meds- waves the meds away Objective Vitals Vital Signs Date Time Temp Pulse Resp B/P (MAP) Pulse Ox O2 Delivery O2 Flow Rate FiO2 12/03/17 08:00 98.7 99 20 137/65 (89) 98 12/02/17 21:33 97.4 86 20 170/70 (103) 92 12/02/17 16:05 97.3 72 20 137/58 (84) 96 12/02/17 11:47 97.6 80 20 130/68 (88) 100 I/O 12/02/17 12/02/17 12/02/17 12/03/17 12/03/17 12/03/17 07:00 15:00 23:00 07:00 15:00 23:00 Intake Total 100 ml 600 ml Balance 100 ml 600 ml Intake Oral 600 ml TPN/PPN 100 ml # Voids 6 4 # Bowel Movements 1 2 Objective Remarks awake and alert, pupils equal speech- expressive aphasia no nuchal rigidity lungs- no rales regular rhythm abdomen - soft extremities no edema, no calf tenderness motor 0/5 -RUE-+ pain on exam LE- no edema, no calf tenderness Procedures none A/P Problem List: (1) Encephalopathy ICD Code: G93.40 - Encephalopathy, unspecified (2) CVA (cerebral vascular accident) ICD Code: I63.9 - Cerebral infarction, unspecified (3) HTN (hypertension) ICD Code: I10 - Essential (primary) hypertension (4) Tobacco abuse ICD Code: Z72.0 - Tobacco use Assessment and Plan 67-year-old female with 1. 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 Continue Coumadin. Continue PT/OT. ff INR. Increase Coumadin to 4 mg daily 2. Seizure: Continue Keppra. Seizure precautions 3. Hypertension: Continue JAYLEN inhibitor, beta evonne. Vasotec as needed. 4. C. difficile colitis: - no further reported diarrhea Hyper virulent strain. Appreciate infectious disease recommendations. Continue and complete oral vancomycin course 5. Bipolar disorder, agitation: - increase- refusing meds Continue Seroquel. seen by Psychiatry 6. Cardiomyopathy: Continue beta evonne, JAYLEN inhibitor. 7. DVT prophylaxis: on Coumadin 8. right subacute humeral fracture- occurred 09/30- ER - never got to see an Ortho referral from SNF orthopedics saw her this am NWB right UE repeat XR in 2-3 weeks PT OP ff up with Ortho d/w Dr. Mo- patient has no capacity for decision making seen by Psychiatry-deemed not candidate for inpatient psych d/w staff- will try our best to encourage her to eat Discharge Planning Awaiting discharge disposition to SNF- - already accepted by [facility] along with us sister is meeting with a ammonia solution preparer this week- Pt's sister has an appointment with an research attorney this week to assist her and the pt's nephew with guardianship so they can legally access her funds and spend down her excess dollars so she can go to under Medicare and flip to Medicaid Steffi North MD Dec 03, 2017 10:15
--- NOTE | 2017-12-03 10:49 | MB ---
cc: KHANG LOZOYA DATE OF SERVICE 12/03/2017 CHIEF COMPLAINT Right shoulder pain. HISTORY OF PRESENT ILLNESS The patient is a 67-year-old white female who has been admitted to the hospital since the 25 of October. She was admitted for altered mental status. She had previously suffered a stroke which resulted in right-sided hemiplegia and also resulted in expressive aphasia. The patient is unable to accurately describe or give me a history and the only two words that she can say are the words "right" and "no". The patient is able to nod and acknowledge that she understands what I am saying and when I guess what she is trying to tell me and I am correct, she acknowledges that. She seems to be coherent mentally. Consult was put in yesterday for a subacute fracture of the right humerus. It is reported that she had a fall on 09/30/2017 and brought to the emergency department. However, she was unable to receive orthopedic referral from her rehab facility. In her most recent hospitalization she was brought back to the emergency department after being found in altered mental status at the rehab facility. When asked about pain in the shoulder, she shakes her head no. Upon further investigation she states that at one point she did have pain in the shoulder. She is unable to move her fingers or leg on the entire right side. REVIEW OF SYSTEMS Negative except what is noted in the HPI. PAST MEDICAL HISTORY 1. Positive for CVA with residual aphasia, right hemiplegia and left hemiparesis. 2. Hypertension. 3. Diabetes. 4. Bipolar disorder. 5. Tobacco abuse. PAST SURGICAL HISTORY 1. Appendectomy. 2. . 3. Fibroid resection. ALLERGIES No known allergies. FAMILY HISTORY No history of diabetes or coronary artery disease. SOCIAL HISTORY Negative for alcohol or drugs. Positive for tobacco. PHYSICAL EXAMINATION VITALS: Temperature 98.7, pulse 99, respiratory rate 20, blood pressure 137/65, O2 saturation 98 on room air. GENERAL: Well-developed, well-nourished 67-year-old white female in no acute distress but does show evidence of moderate agitation. She is resting comfortably in bed and is looking for her remote control. She keeps saying the word "right" over and over. The patient is alert and oriented but is unable to actively voice what she wants or thinks. She does not confirm commands. EARS: Hearing intact bilaterally. EYES: Extraocular motions intact. Pupils equal, round, react to light. NECK: Supple. No evidence of lymphadenopathy. CHEST: No use of accessory muscles while breathing and no wheezes at the bedside. HEART: No grade 4 murmur present. MUSCULOSKELETAL: Right upper extremity with no active movement of the shoulder, elbow, wrist or fingers. Limited sensation to median and ulnar nerve distribution. Unable to move her fingers at all. Nontender to palpation of shoulder. Minimal discomfort with movement of the shoulder. Right lower extremity with complete hemiplegia of the right lower leg with inability to actively move the hip, knee, ankle or toes. There is noticeable foot drop. Left lower extremity with full motion of the hip, knees, ankles and toes and no pain with full sensation distally. Left upper extremity with full motion of shoulder, elbow, wrist and fingers. Full sensation distally and no pain. LABS Dated for 11/18/2017 - White blood cell count 8.9, red blood cell count 4.56, hemoglobin 13.9, hematocrit 39.9, platelets of 256. INR is 1.1 as of 12/02. IMAGING STUDIES X-rays of the right shoulder were reviewed from [facility] [place] which show a minimally displaced subacute right proximal humerus fracture that shows moderate evidence of callous formation. ASSESSMENT Subacute fracture of the right proximal humerus. PLAN I had a long conversation with the patient. There is a communication barrier; however, I was able to overcome that barrier inferiorly and figure out a way to communicate with the patient. I explained to her that she does indeed have a fracture of her right proximal humerus and that it is a well aligned. I anticipate nonoperative management as long as it maintains its position; it should heal well. It already has moderate evidence of healing at this time. I explained to the patient that she needs to be he careful with the right arm. Due to her inability to move the arm, she will not be using her arm anyway. I explained to her that as long as she is careful with the arm, it should heal well. In regards to her hemiplegia related to her stroke, I will defer to neurology and her primary care medical doctors. We will need repeat x-ray in 2-3 weeks to follow along the progress of the right proximal humerus. Otherwise, she is orthopedically cleared for discharge and to follow up in the office in two to three weeks. She will remain non-weightbearing on the right arm. The patient nodded that she understood and agreed with that plan. The above patient was reviewed and discussed with Dr. Lozoya and he agreed. Dictated by: Kee Tolliver PA-C I also saw and examined this patient. History, past medical history, social history, review of systems, physical exam, radiographs, assessment, and plan were also reviewed. Plan on nonoperative treatment. A mid-level provider in my office (nurse practitioner or physician regional administrative assistant) may see this patient on follow-up visits and continue to implement the objectives of this plan including : Starting or adjusting medications, injections, cast application, orthotics, brace application, physical therapy, radiological studies (including x-ray, MRI , CT, ultrasound, bone scan), vascular studies, neurologic studies, specialist consultation, and proceeding with surgical management, as appropriate. MD PRATIBHA Sequeira/TRUONG /9:29 AM /10:30 AM MTDD
[2017-12-03 12:00] VITALS: BP 154/97; PULSE 106; RESP 20; TEMP 97.7; O2SAT 99
[2017-12-03 13:58] LABS: INTERNATIONAL NORMALIZED RATIO 1.2 RATIO; PROTHROMBIN TIME - PATIENT 11.8 SEC (9.8-11.6)
[2017-12-03 16:00] VITALS: BP 138/77; PULSE 93; RESP 20; TEMP 98.2; O2SAT 99
[2017-12-03] MEDS: WARFARIN SOD 4 MG TAB PO SCH (17:15)
[2017-12-03 20:44] VITALS: BP 147/65; PULSE 83; RESP 17; TEMP 97.8; O2SAT 99
[2017-12-04 00:45] VITALS: BP 159/55; PULSE 87; RESP 17; TEMP 97.2; O2SAT 99
[2017-12-04 05:53] VITALS: BP 145/64; PULSE 87; RESP 17; TEMP 97.7; O2SAT 98
[2017-12-04 08:00] VITALS: BP 186/89; PULSE 92; RESP 18; TEMP 98.1; O2SAT 94
[2017-12-04] MEDS: DOCUSATE SODIUM 50 MG/SENNA 8.6 MG TAB PO SCH ×2 (09:43→21:00)
[2017-12-04] MEDS: LACTOBACILLUS ACIDOPHILUS TAB PO SCH ×3 (09:43→17:38)
[2017-12-04] MEDS: SODIUM CHLORIDE 0.9% FLUSH 10 ML FLUSH IV FLUSH SCH ×2 (09:43→21:00)
[2017-12-04] MEDS: CARVEDILOL 3.125 MG TAB PO SCH ×3 (09:44→23:20)
[2017-12-04] MEDS: levETIRAcetam 500 MG/5 ML UDC PO SCH ×3 (09:45→23:19)
[2017-12-04] MEDS: LISINOPRIL 5 MG TAB PO SCH ×3 (09:45→23:20)
[2017-12-04] MEDS: ATORVASTATIN 10 MG TAB PO SCH (09:45)
[2017-12-04] MEDS: QUEtiapine FUMARATE 25 MG TAB PO SCH ×2 (09:45→12:34)
[2017-12-04] MEDS: DIAZEPAM 5 MG TAB PO SCH ×3 (09:45→23:20)
--- NOTE | 2017-12-04 12:50 | HHI.PR ---
Subjective Remarks Follow-up visit for CVA with right hemiplegia, dysarthria, expressive aphasia, seizure disorder, hypertension, C. difficile, bipolar disorder, right humeral fracture. Patient seen and examined with lab at bedside, she is very agitated and yelling out at the staff were trying to obtain labs today. She is very agitated and signaling to her food and repeatedly stating "I do not care" over and over again. Discussed with nurse who states patient has been like this and will go from agitation to being calm. She also goes from taking medications to spitting medications and becoming aggressive. She does not answer my questions and repetitively states "I do not care" Objective Vitals Vital Signs Date Time Temp Pulse Resp B/P (MAP) Pulse Ox O2 Delivery O2 Flow Rate FiO2 12/04/17 08:00 98.1 92 18 186/89 (121) 94 12/04/17 05:53 97.7 87 17 145/64 (91) 98 12/04/17 00:45 97.2 87 17 159/55 (89) 99 12/03/17 20:44 97.8 83 17 147/65 (92) 99 12/03/17 16:00 98.2 93 20 138/77 (97) 99 I/O 12/03/17 12/03/17 12/03/17 12/04/17 12/04/17 12/04/17 07:00 15:00 23:00 07:00 15:00 23:00 Intake Total 480 ml 120 ml Balance 480 ml 120 ml Intake Oral 480 ml 120 ml # Voids 3 3 # Bowel Movements 1 Imaging Last Impressions Humerus X-Ray 12/02/17 0000 Signed Impressions: Service Date/Time: Saturday, December 02, 2017 11:08 - CONCLUSION: 1. Fracture through the proximal humerus. There is periosteal bone formation suggesting healing. Nikolas Stewart MD Chest X-Ray 11/04/17 0000 Signed Impressions: Service Date/Time: Saturday, November 04, 2017 09:26 - CONCLUSION: No acute cardiopulmonary findings identified. Known fracture of the proximal right humerus. Nikolas Stewart MD Neck CTA 10/27/17 0000 Signed Impressions: Service Date/Time: Friday, October 27, 2017 17:42 - CONCLUSION: 1. Occluded left internal carotid artery 2. Mild narrowing at the origin of the right internal carotid artery measuring 30%%. 3. Patent vertebral arteries with good flow. Price Cee MD Head CTA 10/27/17 0000 Signed Impressions: Service Date/Time: Friday, October 27, 2017 17:42 - CONCLUSION: 1. Occluded intracranial segment of the left internal carotid artery. 2. Very scant flow in the left middle cerebral artery distribution with proximal MCA occlusion. 3. Evolving large left MCA infarct. Price Cee MD Head CT 10/27/17 0000 Signed Impressions: Service Date/Time: Friday, October 27, 2017 17:34 - CONCLUSION: 1. No evidence of acute right-sided infarction. Cystic encephalomalacia involving the left middle cerebral artery distribution unchanged 2. Pansinusitis Soren Rose MD Carotid Artery Ultrasound 10/27/17 0000 Signed Impressions: Service Date/Time: Friday, October 27, 2017 16:16 - CONCLUSION: 1. Findings of left carotid occlusion. CT angiography of the carotid arteries the brain is recommended for further evaluation Soren Rose MD Brain MRI 10/26/17 0000 Signed Impressions: Service Date/Time: Thursday, October 26, 2017 16:34 - CONCLUSION: Cystic encephalomalacia involving large left middle cerebral artery ischemic infarction. There is a small focus of restricted diffusion in the posterior left frontal region without hemorrhage characteristic of extension of the infarct. Pansinusitis Soren Rose MD Radius/Ulna X-Ray 10/25/17 0000 Signed Impressions: Service Date/Time: Wednesday, October 25, 2017 20:03 - CONCLUSION: 1. No acute fracture or dislocation. No bony destructive changes. Carlton Early MD Objective Remarks GENERAL: White female with right hemiparesis visibly agitated and yelling out " I do not care" SKIN: Warm and dry. HEAD: Normocephalic. EYES: No scleral icterus. No injection or drainage. NECK: Trachea midline. CARDIOVASCULAR: Regular rate and rhythm without murmurs, gallops, or rubs. RESPIRATORY: Breath sounds equal bilaterally. No accessory muscle use. GASTROINTESTINAL: Abdomen soft, non-tender, nondistended. MUSCULOSKELETAL: No cyanosis, or edema. Right-sided weakness NEUROLOGIC: Right hemiparesis of upper and lower extremities moves left arm, visibly agitated repeating over and over again same phrase. 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 - Continue Coumadin. Continue PT/OT. -PT/INR from yesterday subtherapeutic, patient has been on and off allowing lab to draw INRs as well as on and off taking medications -Nurse will try and see if patient calms down and call lab to come up and draw INR -If she continues noncompliance ? Change to a different agent of anticoagulation Seizure - Continue Keppra. Seizure precautions Hypertension: - Continue JAYLEN inhibitor, beta evonne. Vasotec as needed -BP fluctuates, possibly related to agitation C. difficile colitis (hyper virulent strain) - s/p Flagyl and vancomycin treatment. Appreciate infectious disease recommendations. - Reported diarrhea Bipolar disorder, agitation - increase- refusing meds - Continue Seroquel. - seen by Psychiatry Cardiomyopathy - Continue beta evonne, JAYLEN inhibitor. Right subacute humeral fracture- occurred 09/30- ER - never got to see an Ortho referral from SNF -Orthopedic services saw patient, appreciate recommendations. -Nonoperative management, continue to keep position for healing. - NWB right UE - repeat XR in 2-3 weeks - PT - OP ff up with Ortho DVT prophylaxis - on Coumadin Discussed with nurse. Dieudonne Hayward Dec 04, 2017 12:50
[2017-12-04] MEDS: WARFARIN SOD 4 MG TAB PO SCH (16:34)
[2017-12-04 19:52] LABS: INTERNATIONAL NORMALIZED RATIO 1.1 RATIO; PROTHROMBIN TIME - PATIENT 11.3 SEC (9.8-11.6)
[2017-12-04 22:02] VITALS: BP 127/65
[2017-12-05] VITALS: BP 117/64; PULSE 87; RESP 18; TEMP 97.2; O2SAT 98
[2017-12-05 04:00] VITALS: BP 122/67; PULSE 99; RESP 20; TEMP 98.1; O2SAT 98
[2017-12-05 09:09] VITALS: BP 138/79; PULSE 107; RESP 20; TEMP 97.6; O2SAT 99
[2017-12-05] MEDS: ACETAMINOPHEN/HYDROcodone 325 MG/5 MG TAB PO PRN ×2 (09:36→22:39)
[2017-12-05] MEDS: SODIUM CHLORIDE 0.9% FLUSH 10 ML FLUSH IV FLUSH SCH ×2 (09:50→21:00)
[2017-12-05] MEDS: LACTOBACILLUS ACIDOPHILUS TAB PO SCH ×3 (09:51→17:37)
[2017-12-05] MEDS: levETIRAcetam 500 MG/5 ML UDC PO SCH ×2 (09:51→21:00)
[2017-12-05] MEDS: LISINOPRIL 5 MG TAB PO SCH ×2 (09:51→21:00)
[2017-12-05] MEDS: QUEtiapine FUMARATE 25 MG TAB PO SCH ×2 (09:51→12:38)
[2017-12-05] MEDS: ATORVASTATIN 10 MG TAB PO SCH (09:51)
[2017-12-05] MEDS: DIAZEPAM 5 MG TAB PO SCH ×2 (09:51→21:00)
[2017-12-05] MEDS: CARVEDILOL 3.125 MG TAB PO SCH ×2 (09:51→21:00)
[2017-12-05] MEDS: DOCUSATE SODIUM 50 MG/SENNA 8.6 MG TAB PO SCH ×2 (09:51→21:00)
--- NOTE | 2017-12-05 11:06 | HHI.PR ---
Subjective Remarks At baseline no events overnight. nO n/v/d/c. Eating fairly well. Objective Vitals Vital Signs Date Time Temp Pulse Resp B/P (MAP) Pulse Ox O2 Delivery O2 Flow Rate FiO2 12/05/17 09:09 97.6 107 20 138/79 (98) 99 12/05/17 04:00 98.1 99 20 122/67 (85) 98 12/05/17 00:00 97.2 87 18 117/64 (81) 98 12/04/17 22:02 127/65 (85) I/O 12/04/17 12/04/17 12/04/17 12/05/17 12/05/17 12/05/17 07:00 15:00 23:00 07:00 15:00 23:00 Intake Total 120 ml 480 ml Balance 120 ml 480 ml Intake Oral 120 ml 480 ml # Voids 3 3 1 Imaging Last Impressions Humerus X-Ray 12/02/17 0000 Signed Impressions: Service Date/Time: Saturday, December 02, 2017 11:08 - CONCLUSION: 1. Fracture through the proximal humerus. There is periosteal bone formation suggesting healing. Nikolas Stewart MD Chest X-Ray 11/04/17 0000 Signed Impressions: Service Date/Time: Saturday, November 04, 2017 09:26 - CONCLUSION: No acute cardiopulmonary findings identified. Known fracture of the proximal right humerus. Nikolas Stewart MD Neck CTA 10/27/17 0000 Signed Impressions: Service Date/Time: Friday, October 27, 2017 17:42 - CONCLUSION: 1. Occluded left internal carotid artery 2. Mild narrowing at the origin of the right internal carotid artery measuring 30%%. 3. Patent vertebral arteries with good flow. Price Cee MD Head CTA 10/27/17 0000 Signed Impressions: Service Date/Time: Friday, October 27, 2017 17:42 - CONCLUSION: 1. Occluded intracranial segment of the left internal carotid artery. 2. Very scant flow in the left middle cerebral artery distribution with proximal MCA occlusion. 3. Evolving large left MCA infarct. Price Cee MD Head CT 10/27/17 0000 Signed Impressions: Service Date/Time: Friday, October 27, 2017 17:34 - CONCLUSION: 1. No evidence of acute right-sided infarction. Cystic encephalomalacia involving the left middle cerebral artery distribution unchanged 2. Pansinusitis Soren Rose MD Carotid Artery Ultrasound 10/27/17 0000 Signed Impressions: Service Date/Time: Friday, October 27, 2017 16:16 - CONCLUSION: 1. Findings of left carotid occlusion. CT angiography of the carotid arteries the brain is recommended for further evaluation Soren Rose MD Brain MRI 10/26/17 0000 Signed Impressions: Service Date/Time: Thursday, October 26, 2017 16:34 - CONCLUSION: Cystic encephalomalacia involving large left middle cerebral artery ischemic infarction. There is a small focus of restricted diffusion in the posterior left frontal region without hemorrhage characteristic of extension of the infarct. Pansinusitis Soren Rose MD Radius/Ulna X-Ray 10/25/17 0000 Signed Impressions: Service Date/Time: Wednesday, October 25, 2017 20:03 - CONCLUSION: 1. No acute fracture or dislocation. No bony destructive changes. Carlton Early MD Objective Remarks GENERAL: White female with right hemiparesis visibly agitated and yelling out " I do not care" CARDIOVASCULAR: Regular rate and rhythm without murmurs, gallops, or rubs. RESPIRATORY: Breath sounds equal bilaterally. No accessory muscle use. GASTROINTESTINAL: Abdomen soft, non-tender, nondistended. MUSCULOSKELETAL: No cyanosis, or edema. Right-sided weakness NEUROLOGIC: Right hemiparesis of upper and lower extremities moves left arm, visibly agitated repeating over and over again same phrase. 67-year-old female with 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 - Continue Coumadin. Continue PT/OT. -PT/INR from yesterday subtherapeutic, patient has been on and off allowing lab to draw INRs as well as on and off taking medications -Nurse will try and see if patient calms down and call lab to come up and draw INR -If she continues noncompliance ? Change to a different agent of anticoagulation Seizure - Continue Keppra. Seizure precautions Hypertension: - Continue JAYLEN inhibitor, beta evonne. Vasotec as needed -BP fluctuates, possibly related to agitation C. difficile colitis (hyper virulent strain) - s/p Flagyl and vancomycin treatment. Appreciate infectious disease recommendations. - Reported diarrhea Bipolar disorder, agitation - increase- refusing meds - Continue Seroquel. - seen by Psychiatry Cardiomyopathy - Continue beta evonne, JAYLEN inhibitor. Right subacute humeral fracture- occurred 09/30- ER - never got to see an Ortho referral from SNF -Orthopedic services saw patient, appreciate recommendations. -Nonoperative management, continue to keep position for healing. - NWB right UE - repeat XR in 2-3 weeks - PT - OP ff up with Ortho DVT prophylaxis - on Coumadin Discussed with the patient, nurse. Procedures none A/P Problem List: (1) Encephalopathy ICD Code: G93.40 - Encephalopathy, unspecified (2) CVA (cerebral vascular accident) ICD Code: I63.9 - Cerebral infarction, unspecified (3) HTN (hypertension) ICD Code: I10 - Essential (primary) hypertension (4) Tobacco abuse ICD Code: Z72.0 - Tobacco use Quin Horne MD Dec 05, 2017 11:06
[2017-12-05 11:49] VITALS: BP 118/63; PULSE 101; RESP 20; TEMP 98.3; O2SAT 97
[2017-12-05] MEDS ORDERED: WARFARIN SOD 4 MG TAB PO ONE (16:00)
[2017-12-05 16:24] VITALS: BP 143/66; PULSE 96; RESP 20; TEMP 97.7; O2SAT 100
[2017-12-05] MEDS: WARFARIN SOD 4 MG TAB PO SCH (16:55)
[2017-12-05 19:49] LABS: INTERNATIONAL NORMALIZED RATIO 1.1 RATIO; PROTHROMBIN TIME - PATIENT 11.1 SEC (9.8-11.6)
[2017-12-05 21:40] VITALS: BP 129/80; PULSE 80; RESP 19; TEMP 97.9; O2SAT 94
[2017-12-06 00:45] VITALS: BP 130/88; PULSE 88; RESP 19; TEMP 98.8; O2SAT 94
[2017-12-06 05:00] VITALS: BP 122/72; PULSE 67; RESP 17; TEMP 98; O2SAT 95
[2017-12-06 08:00] VITALS: BP 139/98; PULSE 86; RESP 18; TEMP 98.2; O2SAT 99
[2017-12-06] MEDS: LACTOBACILLUS ACIDOPHILUS TAB PO SCH ×4 (09:00→14:51)
[2017-12-06] MEDS: DOCUSATE SODIUM 50 MG/SENNA 8.6 MG TAB PO SCH ×2 (09:00→20:42)
[2017-12-06] MEDS: CARVEDILOL 3.125 MG TAB PO SCH ×2 (09:00→20:42)
[2017-12-06] MEDS: levETIRAcetam 500 MG/5 ML UDC PO SCH ×3 (09:00→20:42)
[2017-12-06] MEDS: ATORVASTATIN 10 MG TAB PO SCH ×2 (09:00→09:35)
[2017-12-06] MEDS: SODIUM CHLORIDE 0.9% FLUSH 10 ML FLUSH IV FLUSH SCH ×2 (09:00→20:42)
[2017-12-06] MEDS: LISINOPRIL 5 MG TAB PO SCH ×2 (09:00→20:43)
[2017-12-06] MEDS: QUEtiapine FUMARATE 25 MG TAB PO SCH ×3 (09:00→10:45)
[2017-12-06] MEDS: DIAZEPAM 5 MG TAB PO SCH ×3 (09:00→20:40)
[2017-12-06 11:54] VITALS: BP 189/96; PULSE 118; RESP 18; TEMP 98.2; O2SAT 94
[2017-12-06] MEDS: WARFARIN SOD 4 MG TAB PO SCH (14:51)
--- NOTE | 2017-12-06 15:02 | HHI.PR ---
Subjective Remarks She is yelling and refusing medications. Otherwise no events overnight. Her blood pressure went up when she was yelling. Objective Vitals Vital Signs Date Time Temp Pulse Resp B/P (MAP) Pulse Ox O2 Delivery O2 Flow Rate FiO2 12/06/17 11:54 98.2 118 18 189/96 (127) 94 12/06/17 08:00 98.2 86 18 139/98 (112) 99 12/06/17 05:00 98.0 67 17 122/72 (89) 95 12/06/17 00:45 98.8 88 19 130/88 (102) 94 12/05/17 21:40 97.9 80 19 129/80 (96) 94 12/05/17 16:24 97.7 96 20 143/66 (91) 100 I/O 12/05/17 12/05/17 12/05/17 12/06/17 12/06/17 12/06/17 07:00 15:00 23:00 07:00 15:00 23:00 Intake Total 100 ml 100 ml Balance 100 ml 100 ml Intake Oral 100 ml 100 ml # Voids 1 3 7 # Bowel Movements 0 0 Objective Remarks GENERAL: White female with right hemiparesis visibly agitated and yelling out " I do not care" CARDIOVASCULAR: Regular rate and rhythm without murmurs, gallops, or rubs. RESPIRATORY: Breath sounds equal bilaterally. No accessory muscle use. GASTROINTESTINAL: Abdomen soft, non-tender, nondistended. MUSCULOSKELETAL: No cyanosis, or edema. Right-sided weakness NEUROLOGIC: Right hemiparesis of upper and lower extremities moves left arm, visibly agitated repeating over and over again same phrase. 67-year-old female with 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 - Continue Coumadin. Continue PT/OT. -PT/INR from yesterday subtherapeutic, patient has been on and off allowing lab to draw INRs as well as on and off taking medications -Nurse will try and see if patient calms down and call lab to come up and draw INR -If she continues noncompliance ? Change to a different agent of anticoagulation Seizure - Continue Keppra. Seizure precautions Hypertension: - Continue JAYLEN inhibitor, beta evonne. Vasotec as needed -BP fluctuates, possibly related to agitation C. difficile colitis (hyper virulent strain) - s/p Flagyl and vancomycin treatment. Appreciate infectious disease recommendations. - Reported diarrhea Bipolar disorder, agitation - increase- refusing meds - Continue Seroquel. - seen by Psychiatry Cardiomyopathy - Continue beta evonne, JAYLEN inhibitor. Right subacute humeral fracture- occurred 09/30- ER - never got to see an Ortho referral from SNF -Orthopedic services saw patient, appreciate recommendations. -Nonoperative management, continue to keep position for healing. - NWB right UE - repeat XR in 2-3 weeks - PT - OP ff up with Ortho DVT prophylaxis - on Coumadin Discussed with the patient, nurse. Procedures none A/P Problem List: (1) Encephalopathy ICD Code: G93.40 - Encephalopathy, unspecified (2) CVA (cerebral vascular accident) ICD Code: I63.9 - Cerebral infarction, unspecified (3) HTN (hypertension) ICD Code: I10 - Essential (primary) hypertension (4) Tobacco abuse ICD Code: Z72.0 - Tobacco use Quin Horne MD Dec 06, 2017 15:02
[2017-12-06 16:00] VITALS: BP 186/91; PULSE 107; RESP 18; TEMP 98.4; O2SAT 99
[2017-12-06 20:00] VITALS: BP 152/65; PULSE 95; RESP 18; TEMP 97.3; O2SAT 98
[2017-12-06] MEDS: ACETAMINOPHEN/HYDROcodone 325 MG/5 MG TAB PO PRN (20:40)
[2017-12-07] VITALS: BP 142/64; PULSE 88; RESP 21; TEMP 98.1; O2SAT 96
[2017-12-07 04:00] VITALS: BP 116/57; PULSE 81; RESP 18; TEMP 97.8; O2SAT 97
[2017-12-07] MEDS: levETIRAcetam 500 MG/5 ML UDC PO SCH ×2 (07:19→20:46)
[2017-12-07] MEDS: DOCUSATE SODIUM 50 MG/SENNA 8.6 MG TAB PO SCH ×2 (07:20→20:46)
[2017-12-07] MEDS: DIAZEPAM 5 MG TAB PO SCH ×2 (07:20→20:46)
[2017-12-07] MEDS: LISINOPRIL 5 MG TAB PO SCH ×2 (07:20→20:46)
[2017-12-07] MEDS: QUEtiapine FUMARATE 25 MG TAB PO SCH ×2 (07:20→11:37)
[2017-12-07] MEDS: CARVEDILOL 3.125 MG TAB PO SCH ×2 (07:20→20:46)
[2017-12-07] MEDS: SODIUM CHLORIDE 0.9% FLUSH 10 ML FLUSH IV FLUSH SCH ×2 (07:20→20:46)
[2017-12-07] MEDS: ATORVASTATIN 10 MG TAB PO SCH (07:20)
[2017-12-07] MEDS: LACTOBACILLUS ACIDOPHILUS TAB PO SCH ×3 (07:20→12:50)
[2017-12-07 08:09] VITALS: BP 191/88; PULSE 92; RESP 20; TEMP 98.1; O2SAT 99
--- NOTE | 2017-12-07 08:30 | HHI.PR ---
Subjective Remarks Refusing meds. BP is high. Patient is also noted agitated on/off. She is calm at this time. Discussed with her length regarding compliance with medications risk of stroke with having high blood pressure. Patient denies new more water or sensory deficit. She has no headaches, no chest pain or shortness of breath. In bed appears in not acute distress at this time. Objective Vitals Vital Signs Date Time Temp Pulse Resp B/P (MAP) Pulse Ox O2 Delivery O2 Flow Rate FiO2 12/07/17 08:09 98.1 92 20 191/88 (122) 99 12/07/17 04:00 97.8 81 18 116/57 (76) 97 12/07/17 00:00 98.1 88 21 142/64 (90) 96 12/06/17 20:00 97.3 95 18 152/65 (94) 98 12/06/17 16:00 98.4 107 18 186/91 (122) 99 12/06/17 11:54 98.2 118 18 189/96 (127) 94 I/O 12/06/17 12/06/17 12/06/17 12/07/17 12/07/17 12/07/17 07:00 15:00 23:00 07:00 15:00 23:00 Intake Total 100 ml Balance 100 ml Intake Oral 100 ml # Voids 7 1 1 # Bowel Movements 0 0 0 Imaging Last Impressions Humerus X-Ray 12/02/17 0000 Signed Impressions: Service Date/Time: Saturday, December 02, 2017 11:08 - CONCLUSION: 1. Fracture through the proximal humerus. There is periosteal bone formation suggesting healing. Nikolas Stewart MD Chest X-Ray 11/04/17 0000 Signed Impressions: Service Date/Time: Saturday, November 04, 2017 09:26 - CONCLUSION: No acute cardiopulmonary findings identified. Known fracture of the proximal right humerus. Nikolas Stewart MD Neck CTA 10/27/17 0000 Signed Impressions: Service Date/Time: Friday, October 27, 2017 17:42 - CONCLUSION: 1. Occluded left internal carotid artery 2. Mild narrowing at the origin of the right internal carotid artery measuring 30%%. 3. Patent vertebral arteries with good flow. Price Cee MD Head CTA 10/27/17 0000 Signed Impressions: Service Date/Time: Friday, October 27, 2017 17:42 - CONCLUSION: 1. Occluded intracranial segment of the left internal carotid artery. 2. Very scant flow in the left middle cerebral artery distribution with proximal MCA occlusion. 3. Evolving large left MCA infarct. Price Cee MD Head CT 10/27/17 0000 Signed Impressions: Service Date/Time: Friday, October 27, 2017 17:34 - CONCLUSION: 1. No evidence of acute right-sided infarction. Cystic encephalomalacia involving the left middle cerebral artery distribution unchanged 2. Pansinusitis Soren Rose MD Carotid Artery Ultrasound 10/27/17 0000 Signed Impressions: Service Date/Time: Friday, October 27, 2017 16:16 - CONCLUSION: 1. Findings of left carotid occlusion. CT angiography of the carotid arteries the brain is recommended for further evaluation Soren Roes MD Brain MRI 10/26/17 0000 Signed Impressions: Service Date/Time: Thursday, October 26, 2017 16:34 - CONCLUSION: Cystic encephalomalacia involving large left middle cerebral artery ischemic infarction. There is a small focus of restricted diffusion in the posterior left frontal region without hemorrhage characteristic of extension of the infarct. Pansinusitis Soren Rose MD Radius/Ulna X-Ray 10/25/17 0000 Signed Impressions: Service Date/Time: Wednesday, October 25, 2017 20:03 - CONCLUSION: 1. No acute fracture or dislocation. No bony destructive changes. Carlton Early MD Objective Remarks GENERAL: White female with right hemiparesis visibly agitated and yelling out " I do not care" CARDIOVASCULAR: Regular rate and rhythm without murmurs, gallops, or rubs. RESPIRATORY: Breath sounds equal bilaterally. No accessory muscle use. GASTROINTESTINAL: Abdomen soft, non-tender, nondistended. MUSCULOSKELETAL: No cyanosis, or edema. Right-sided weakness NEUROLOGIC: Right hemiparesis of upper and lower extremities moves left arm, visibly agitated repeating over and over again same phrase. 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 - Continue Coumadin. Continue PT/OT. -PT/INR from yesterday subtherapeutic, patient has been on and off allowing lab to draw INRs as well as on and off taking medications -Nurse will try and see if patient calms down and call lab to come up and draw INR -If she continues noncompliance ? Change to a different agent of anticoagulation Seizure - Continue Keppra. Seizure precautions Hypertension, uncontrolled patient is refusing meds: Discussed with the patient at length risk of having another stroke with elevated blood pressure. Patient says she is going to take medications however she is noncompliant. - Continue JAYLEN inhibitor, beta evonne. Vasotec IV as needed, hydralazine po 10 mg q6 hrs prn if bP > 160/90 -BP fluctuates, possibly related to agitation. Add haldol, will consult psych C. difficile colitis (hyper virulent strain) - s/p Flagyl and vancomycin treatment. Appreciate infectious disease recommendations. - Reported diarrhea Bipolar disorder, agitation - increase- refusing meds - Continue Seroquel. - seen by Psychiatry Cardiomyopathy - Continue beta evonne, JAYLEN inhibitor. Right subacute humeral fracture- occurred 09/30- ER - never got to see an Ortho referral from SNF -Orthopedic services saw patient, appreciate recommendations. -Nonoperative management, continue to keep position for healing. - NWB right UE - repeat XR in 2-3 weeks - PT - OP ff up with Ortho DVT prophylaxis - on Coumadin Discussed with the patient, nurse. Quin Horne MD Dec 07, 2017 08:30
[2017-12-07] MEDS ORDERED: ENALAPRILAT 2.5 MG/2 ML VIAL IV PUSH PRN (11:15)
[2017-12-07] MEDS ORDERED: HALOPERIDOL 2 MG TAB PO PRN (11:15)
[2017-12-07 11:50] VITALS: BP 146/68; PULSE 78; RESP 20; TEMP 97.8; O2SAT 96
[2017-12-07] MEDS: WARFARIN SOD 4 MG TAB PO SCH (12:50)
--- NOTE | 2017-12-07 15:38 | HHI.PYPN ---
Subjective Remarks Patient seen with RN. Chart reviewed. Discussed with RN. Patient post CVA she is seen in her bed she is quite alert quite a phasic only can answer with yes or no questions but is fairly well oriented with her yes or no responses. Nurse states the patient overall is calm but there are times when hygiene is involved or food that she becomes irritable. It appears she does enjoy ensure. At this time I would recommend a scheduled dose of Haldol elixir 2 mg twice a day mixed with ensure to promote compliance. We'll discontinue the other Haldol orders Review of Systems ROS Limitations: Altered Mental Status Mental Status Examination Appearance: Disheveled Consciousness: Alert, Clouded Orientation: Person Motor Activity: Abnormal gait Speech: Speech impediment Language: Other Attention and Concentration: Inadequate Memory: Impaired Mood: Anxious Affect: Anxious Thought Process & Associations: Other (concrete due to speech impediment) Thought Content: Other (concrete) Hallucination Type: None Suicidal Ideation: No Suicidal Plan: No Suicidal Intention: No Homicidal Ideation: No Homicidal Plan: No Homicidal Intention: No Insight: Fair Judgment: Impulsive Results Labs Date/Time Source Procedure Growth Status 11/04/17 10:49 Blood Peripheral Aerobic Blood Culture - Final NO GROWTH IN 5 DAYS Complete 11/04/17 10:49 Blood Peripheral Anaerobic Blood Culture - Final NO GROWTH IN 5 DAYS Complete 10/25/17 20:00 Urine Catheterized Urine Urine Culture - Final 10-50,000 CFU/ML MIXED GRAM POSITIVE ... Complete Vitals/IOs Vital Signs Date Time Temp Pulse Resp B/P (MAP) Pulse Ox O2 Delivery O2 Flow Rate FiO2 12/07/17 11:50 97.8 78 20 146/68 (94) 96 Assessment & Plan Problem List: (1) Delirium due to another medical condition ICD Codes: F05 - Delirium due to known physiological condition (2) CVA (cerebral vascular accident) ICD Codes: I63.9 - Cerebral infarction, unspecified Assessment & Plan Estimated LOS: days patient alert quite a phasic though is capable of some appropriate responses. She medication adjustment above Justification for Cont. Inpt. With this in patient with decompensated placed in the lower level of care Discharge Planning To be determined by medical team George Torres MD Dec 07, 2017 15:38
[2017-12-07 15:55] VITALS: BP 182/76; PULSE 86; RESP 20; TEMP 98.4; O2SAT 97
[2017-12-07] MEDS: hydrALAZINE HCL 10 MG TAB PO PRN (16:29)
[2017-12-07] MEDS: HALOPERIDOL LACTATE ORAL CONC 10 MG/5 ML CUP PO SCH (20:46)
[2017-12-07 21:13] VITALS: BP 117/58; PULSE 94; RESP 18; TEMP 98.4; O2SAT 98
[2017-12-08 01:16] VITALS: BP 107/48; PULSE 89; RESP 18; TEMP 97.4; O2SAT 98
[2017-12-08 04:33] VITALS: BP 134/68; PULSE 80; RESP 18; TEMP 97.8; O2SAT 99
[2017-12-08] MEDS: HALOPERIDOL LACTATE ORAL CONC 10 MG/5 ML CUP PO SCH ×2 (07:36→20:00)
[2017-12-08] MEDS: CARVEDILOL 3.125 MG TAB PO SCH ×2 (07:36→20:00)
[2017-12-08] MEDS: QUEtiapine FUMARATE 25 MG TAB PO SCH ×2 (07:36→11:20)
[2017-12-08] MEDS: DIAZEPAM 5 MG TAB PO SCH ×2 (07:36→20:00)
[2017-12-08] MEDS: LISINOPRIL 5 MG TAB PO SCH ×2 (07:37→20:00)
[2017-12-08] MEDS: LACTOBACILLUS ACIDOPHILUS TAB PO SCH ×3 (07:37→15:33)
[2017-12-08] MEDS: ATORVASTATIN 10 MG TAB PO SCH (07:37)
[2017-12-08] MEDS: levETIRAcetam 500 MG/5 ML UDC PO SCH ×2 (07:38→20:00)
[2017-12-08] MEDS: SODIUM CHLORIDE 0.9% FLUSH 10 ML FLUSH IV FLUSH SCH ×2 (07:41→20:00)
[2017-12-08] MEDS: DOCUSATE SODIUM 50 MG/SENNA 8.6 MG TAB PO SCH ×2 (07:41→20:00)
[2017-12-08 07:52] VITALS: BP 159/66; PULSE 74; RESP 20; TEMP 97.1; O2SAT 99
--- NOTE | 2017-12-08 09:18 | HHI.PR ---
Subjective Remarks Sleepy. Does not appear in acute distress. She is less agitated. Since she is taking her blood pressure medications. Blood pressure is better controlled. Objective Vitals Vital Signs Date Time Temp Pulse Resp B/P (MAP) Pulse Ox O2 Delivery O2 Flow Rate FiO2 12/08/17 07:52 97.1 74 20 159/66 (97) 99 12/08/17 04:33 97.8 80 18 134/68 (90) 99 12/08/17 01:16 97.4 89 18 107/48 (67) 98 12/07/17 21:13 98.4 94 18 117/58 (77) 98 12/07/17 15:55 98.4 86 20 182/76 (111) 97 12/07/17 11:50 97.8 78 20 146/68 (94) 96 I/O 12/07/17 12/07/17 12/07/17 12/08/17 12/08/17 12/08/17 07:00 15:00 23:00 07:00 15:00 23:00 Intake Total 660 ml Balance 660 ml Intake Oral 660 ml # Voids 1 2 # Bowel Movements 0 Imaging Last Impressions Humerus X-Ray 12/02/17 0000 Signed Impressions: Service Date/Time: Saturday, December 02, 2017 11:08 - CONCLUSION: 1. Fracture through the proximal humerus. There is periosteal bone formation suggesting healing. Nikolas Stewart MD Chest X-Ray 11/04/17 0000 Signed Impressions: Service Date/Time: Saturday, November 04, 2017 09:26 - CONCLUSION: No acute cardiopulmonary findings identified. Known fracture of the proximal right humerus. Nikolas Stewart MD Neck CTA 10/27/17 0000 Signed Impressions: Service Date/Time: Friday, October 27, 2017 17:42 - CONCLUSION: 1. Occluded left internal carotid artery 2. Mild narrowing at the origin of the right internal carotid artery measuring 30%%. 3. Patent vertebral arteries with good flow. Price Cee MD Head CTA 10/27/17 0000 Signed Impressions: Service Date/Time: Friday, October 27, 2017 17:42 - CONCLUSION: 1. Occluded intracranial segment of the left internal carotid artery. 2. Very scant flow in the left middle cerebral artery distribution with proximal MCA occlusion. 3. Evolving large left MCA infarct. Price Cee MD Head CT 10/27/17 0000 Signed Impressions: Service Date/Time: Friday, October 27, 2017 17:34 - CONCLUSION: 1. No evidence of acute right-sided infarction. Cystic encephalomalacia involving the left middle cerebral artery distribution unchanged 2. Pansinusitis Soren Rose MD Carotid Artery Ultrasound 10/27/17 0000 Signed Impressions: Service Date/Time: Friday, October 27, 2017 16:16 - CONCLUSION: 1. Findings of left carotid occlusion. CT angiography of the carotid arteries the brain is recommended for further evaluation Soren Rose MD Brain MRI 10/26/17 0000 Signed Impressions: Service Date/Time: Thursday, October 26, 2017 16:34 - CONCLUSION: Cystic encephalomalacia involving large left middle cerebral artery ischemic infarction. There is a small focus of restricted diffusion in the posterior left frontal region without hemorrhage characteristic of extension of the infarct. Pansinusitis Soren Rose MD Radius/Ulna X-Ray 10/25/17 0000 Signed Impressions: Service Date/Time: Wednesday, October 25, 2017 20:03 - CONCLUSION: 1. No acute fracture or dislocation. No bony destructive changes. Carlton Early MD Objective Remarks GENERAL: White female with right hemiparesis visibly agitated and yelling out " I do not care" CARDIOVASCULAR: Regular rate and rhythm without murmurs, gallops, or rubs. RESPIRATORY: Breath sounds equal bilaterally. No accessory muscle use. GASTROINTESTINAL: Abdomen soft, non-tender, nondistended. MUSCULOSKELETAL: No cyanosis, or edema. Right-sided weakness NEUROLOGIC: Right hemiparesis of upper and lower extremities moves left arm, visibly agitated repeating over and over again same phrase. 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 - Continue Coumadin. Continue PT/OT. -PT/INR from yesterday subtherapeutic, patient has been on and off allowing lab to draw INRs as well as on and off taking medications -Nurse will try and see if patient calms down and call lab to come up and draw INR -If she continues noncompliance ? Change to a different agent of anticoagulation Seizure - Continue Keppra. Seizure precautions Hypertension, uncontrolled patient is refusing meds: Discussed with the patient at length risk of having another stroke with elevated blood pressure. Patient says she is going to take medications however she is noncompliant. - Continue JAYLEN inhibitor, beta evonne. Vasotec IV as needed, hydralazine po 10 mg q6 hrs prn if bP > 160/90 -BP fluctuates, possibly related to agitation. Add haldol, will consult psych C. difficile colitis (hyper virulent strain) - s/p Flagyl and vancomycin treatment. Appreciate infectious disease recommendations. - Reported diarrhea Bipolar disorder, agitation - increase- refusing meds - Continue Seroquel. - seen by Psychiatry Cardiomyopathy - Continue beta evonne, JAYLEN inhibitor. Right subacute humeral fracture- occurred 09/30- ER - never got to see an Ortho referral from SNF -Orthopedic services saw patient, appreciate recommendations. -Nonoperative management, continue to keep position for healing. - NWB right UE - repeat XR in 2-3 weeks - PT - OP ff up with Ortho DVT prophylaxis - on Coumadin Discussed with the patient, nurse. Quin Horne MD Dec 08, 2017 09:18
[2017-12-08 12:18] VITALS: BP 120/58; PULSE 75; RESP 20; TEMP 98; O2SAT 99
[2017-12-08] MEDS: WARFARIN SOD 4 MG TAB PO SCH (15:33)
[2017-12-08] MEDS: ACETAMINOPHEN/HYDROcodone 325 MG/5 MG TAB PO PRN (15:34)
[2017-12-08 16:35] VITALS: BP 114/57; PULSE 73; RESP 20; TEMP 98.2; O2SAT 100
[2017-12-08 20:36] VITALS: BP 115/56; PULSE 85; RESP 18; TEMP 97.5; O2SAT 100
[2017-12-09 01:18] VITALS: BP 109/53; PULSE 68; RESP 18; TEMP 97.2; O2SAT 100
[2017-12-09 05:22] VITALS: BP 123/62; PULSE 74; RESP 18; TEMP 97.6; O2SAT 99
[2017-12-09 08:00] VITALS: BP 130/60; PULSE 74; RESP 17; TEMP 97.6; O2SAT 94
[2017-12-09] MEDS: DOCUSATE SODIUM 50 MG/SENNA 8.6 MG TAB PO SCH ×2 (09:00→21:00)
[2017-12-09] MEDS: CARVEDILOL 3.125 MG TAB PO SCH ×2 (09:00→21:00)
[2017-12-09] MEDS: SODIUM CHLORIDE 0.9% FLUSH 10 ML FLUSH IV FLUSH SCH ×2 (09:00→21:00)
[2017-12-09] MEDS: LISINOPRIL 5 MG TAB PO SCH ×2 (09:00→21:00)
[2017-12-09] MEDS: ATORVASTATIN 10 MG TAB PO SCH (09:00)
[2017-12-09] MEDS: levETIRAcetam 500 MG/5 ML UDC PO SCH ×2 (09:00→21:00)
[2017-12-09] MEDS: HALOPERIDOL LACTATE ORAL CONC 10 MG/5 ML CUP PO SCH ×2 (09:31→22:58)
[2017-12-09] MEDS: LACTOBACILLUS ACIDOPHILUS TAB PO SCH ×3 (09:33→18:00)
[2017-12-09] MEDS: QUEtiapine FUMARATE 25 MG TAB PO SCH ×2 (09:34→12:00)
[2017-12-09] MEDS: DIAZEPAM 5 MG TAB PO SCH ×2 (09:37→22:57)
[2017-12-09 10:30] LABS: INTERNATIONAL NORMALIZED RATIO 1.1 RATIO; PROTHROMBIN TIME - PATIENT 10.7 SEC (9.8-11.6)
[2017-12-09 12:00] VITALS: BP 148/68; PULSE 72; RESP 18; TEMP 97.8; O2SAT 100
[2017-12-09] MEDS: ACETAMINOPHEN/HYDROcodone 325 MG/5 MG TAB PO PRN (12:54)
--- NOTE | 2017-12-09 13:00 | HHI.PR ---
Subjective Remarks The margin of the bed, working with the physical therapy. Patient still refusing some medications. No nausea or vomiting no diarrhea or constipation. No fever or chills. No events overnight. Objective Vitals Vital Signs Date Time Temp Pulse Resp B/P (MAP) Pulse Ox O2 Delivery O2 Flow Rate FiO2 12/09/17 08:00 97.6 74 17 130/60 (83) 94 12/09/17 05:22 97.6 74 18 123/62 (82) 99 12/09/17 01:18 97.2 68 18 109/53 (71) 100 12/08/17 20:36 97.5 85 18 115/56 (75) 100 12/08/17 16:56 16 12/08/17 16:35 98.2 73 20 114/57 (76) 100 I/O 12/08/17 12/08/17 12/08/17 12/09/17 12/09/17 12/09/17 07:00 15:00 23:00 07:00 15:00 23:00 Intake Total 660 ml Balance 660 ml Intake Oral 660 ml # Voids 2 2 # Bowel Movements 1 1 Objective Remarks GENERAL: White female with right hemiparesis visibly agitated and yelling out " I do not care" CARDIOVASCULAR: Regular rate and rhythm without murmurs, gallops, or rubs. RESPIRATORY: Breath sounds equal bilaterally. No accessory muscle use. GASTROINTESTINAL: Abdomen soft, non-tender, nondistended. MUSCULOSKELETAL: No cyanosis, or edema. Right-sided weakness NEUROLOGIC: Right hemiparesis of upper and lower extremities moves left arm, visibly agitated repeating over and over again same phrase. 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 - Continue Coumadin. Continue PT/OT. -PT/INR from yesterday subtherapeutic, patient has been on and off allowing lab to draw INRs as well as on and off taking medications -Nurse will try and see if patient calms down and call lab to come up and draw INR -If she continues noncompliance ? Change to a different agent of anticoagulation Seizure - Continue Keppra. Seizure precautions Hypertension, uncontrolled patient is refusing meds: Discussed with the patient at length risk of having another stroke with elevated blood pressure. Patient says she is going to take medications however she is noncompliant. - Continue JAYLEN inhibitor, beta evonne. Vasotec IV as needed, hydralazine po 10 mg q6 hrs prn if bP > 160/90 -BP fluctuates, possibly related to agitation. Add haldol, will consult psych C. difficile colitis (hyper virulent strain) - s/p Flagyl and vancomycin treatment. Appreciate infectious disease recommendations. - Reported diarrhea Bipolar disorder, agitation - increase- refusing meds - Continue Seroquel. - seen by Psychiatry Cardiomyopathy - Continue beta evonne, JAYLEN inhibitor. Right subacute humeral fracture- occurred 09/30- ER - never got to see an Ortho referral from [facility] -Orthopedic services saw patient, appreciate recommendations. -Nonoperative management, continue to keep position for healing. - NWB right UE - repeat XR in 2-3 weeks - PT - OP ff up with Ortho DVT prophylaxis - on Coumadin Discussed with the patient, nurse. Quin Horne MD Dec 09, 2017 13:00
[2017-12-09 16:00] VITALS: BP 134/69; PULSE 72; RESP 16; TEMP 97.8; O2SAT 98
[2017-12-09] MEDS: WARFARIN SOD 4 MG TAB PO SCH (16:00)
[2017-12-09 20:00] VITALS: BP 151/66; PULSE 74; RESP 18; TEMP 97.8; O2SAT 99
[2017-12-10] VITALS: BP 148/87; PULSE 84; RESP 20; TEMP 97.3; O2SAT 97
[2017-12-10 04:00] VITALS: BP 134/69; PULSE 83; RESP 18; TEMP 97.9; O2SAT 98
[2017-12-10 08:35] LABS: INTERNATIONAL NORMALIZED RATIO 1.1 RATIO; PROTHROMBIN TIME - PATIENT 11.4 SEC (9.8-11.6)
[2017-12-10 08:52] VITALS: BP 128/72; PULSE 68; RESP 16; TEMP 98.1; O2SAT 98
[2017-12-10] MEDS: LACTOBACILLUS ACIDOPHILUS TAB PO SCH ×4 (09:00→16:48)
[2017-12-10] MEDS: QUEtiapine FUMARATE 25 MG TAB PO SCH ×2 (09:00→12:00)
[2017-12-10] MEDS: ATORVASTATIN 10 MG TAB PO SCH (09:00)
[2017-12-10] MEDS: HALOPERIDOL LACTATE ORAL CONC 10 MG/5 ML CUP PO SCH ×2 (09:00→20:52)
[2017-12-10] MEDS: LISINOPRIL 5 MG TAB PO SCH ×2 (09:00→20:54)
[2017-12-10] MEDS: DOCUSATE SODIUM 50 MG/SENNA 8.6 MG TAB PO SCH ×2 (09:00→20:53)
[2017-12-10] MEDS: CARVEDILOL 3.125 MG TAB PO SCH ×2 (09:00→20:55)
[2017-12-10] MEDS: SODIUM CHLORIDE 0.9% FLUSH 10 ML FLUSH IV FLUSH SCH ×3 (09:00→21:00)
[2017-12-10] MEDS: levETIRAcetam 500 MG/5 ML UDC PO SCH ×2 (09:00→20:55)
[2017-12-10] MEDS: DIAZEPAM 5 MG TAB PO SCH ×2 (09:00→20:54)
--- NOTE | 2017-12-10 11:37 | HHI.PR ---
Subjective Remarks Bed, sleep. Does not appear in acute distress. Blood pressure is better controlled. No acute events overnight. Has no complaints at this time. Objective Vitals Vital Signs Date Time Temp Pulse Resp B/P (MAP) Pulse Ox O2 Delivery O2 Flow Rate FiO2 12/10/17 08:52 98.1 68 16 128/72 (90) 98 12/10/17 04:00 97.9 83 18 134/69 (90) 98 12/10/17 00:00 97.3 84 20 148/87 (107) 97 12/09/17 20:00 97.8 74 18 151/66 (94) 99 12/09/17 16:00 97.8 72 16 134/69 (90) 98 12/09/17 12:00 97.8 72 18 148/68 (94) 100 I/O 12/09/17 12/09/17 12/09/17 12/10/17 12/10/17 12/10/17 07:00 15:00 23:00 07:00 15:00 23:00 # Voids 2 # Bowel Movements 1 Imaging Last Impressions Humerus X-Ray 12/02/17 0000 Signed Impressions: Service Date/Time: Saturday, December 02, 2017 11:08 - CONCLUSION: 1. Fracture through the proximal humerus. There is periosteal bone formation suggesting healing. Nikolas Stewart MD Chest X-Ray 11/04/17 0000 Signed Impressions: Service Date/Time: Saturday, November 04, 2017 09:26 - CONCLUSION: No acute cardiopulmonary findings identified. Known fracture of the proximal right humerus. Nikolas Stewart MD Neck CTA 10/27/17 0000 Signed Impressions: Service Date/Time: Friday, October 27, 2017 17:42 - CONCLUSION: 1. Occluded left internal carotid artery 2. Mild narrowing at the origin of the right internal carotid artery measuring 30%%. 3. Patent vertebral arteries with good flow. Price Cee MD Head CTA 10/27/17 0000 Signed Impressions: Service Date/Time: Friday, October 27, 2017 17:42 - CONCLUSION: 1. Occluded intracranial segment of the left internal carotid artery. 2. Very scant flow in the left middle cerebral artery distribution with proximal MCA occlusion. 3. Evolving large left MCA infarct. Price Cee MD Head CT 10/27/17 0000 Signed Impressions: Service Date/Time: Friday, October 27, 2017 17:34 - CONCLUSION: 1. No evidence of acute right-sided infarction. Cystic encephalomalacia involving the left middle cerebral artery distribution unchanged 2. Pansinusitis Soren Rose MD Carotid Artery Ultrasound 10/27/17 0000 Signed Impressions: Service Date/Time: Friday, October 27, 2017 16:16 - CONCLUSION: 1. Findings of left carotid occlusion. CT angiography of the carotid arteries the brain is recommended for further evaluation Soren Rose MD Brain MRI 10/26/17 0000 Signed Impressions: Service Date/Time: Thursday, October 26, 2017 16:34 - CONCLUSION: Cystic encephalomalacia involving large left middle cerebral artery ischemic infarction. There is a small focus of restricted diffusion in the posterior left frontal region without hemorrhage characteristic of extension of the infarct. Pansinusitis Soren Rose MD Radius/Ulna X-Ray 10/25/17 0000 Signed Impressions: Service Date/Time: Wednesday, October 25, 2017 20:03 - CONCLUSION: 1. No acute fracture or dislocation. No bony destructive changes. Carlton Early MD Objective Remarks GENERAL: White female with right hemiparesis visibly agitated and yelling out " I do not care" CARDIOVASCULAR: Regular rate and rhythm without murmurs, gallops, or rubs. RESPIRATORY: Breath sounds equal bilaterally. No accessory muscle use. GASTROINTESTINAL: Abdomen soft, non-tender, nondistended. MUSCULOSKELETAL: No cyanosis, or edema. Right-sided weakness NEUROLOGIC: Right hemiparesis of upper and lower extremities moves left arm, visibly agitated repeating over and over again same phrase. 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 - Continue Coumadin. Continue PT/OT. -PT/INR from yesterday subtherapeutic, patient has been on and off allowing lab to draw INRs as well as on and off taking medications -Nurse will try and see if patient calms down and call lab to come up and draw INR -If she continues noncompliance ? Change to a different agent of anticoagulation Seizure - Continue Keppra. Seizure precautions Hypertension, uncontrolled patient is refusing meds: Discussed with the patient at length risk of having another stroke with elevated blood pressure. Patient says she is going to take medications however she is noncompliant. - Continue JAYLEN inhibitor, beta evonne. Vasotec IV as needed, hydralazine po 10 mg q6 hrs prn if bP > 160/90 -BP fluctuates, possibly related to agitation. Add haldol, will consult psych C. difficile colitis (hyper virulent strain) - s/p Flagyl and vancomycin treatment. Appreciate infectious disease recommendations. - Reported diarrhea Bipolar disorder, agitation - increase- refusing meds - Continue Seroquel. - seen by Psychiatry Cardiomyopathy - Continue beta evonne, JAYLEN inhibitor. Right subacute humeral fracture- occurred 09/30- ER - never got to see an Ortho referral from SNF -Orthopedic services saw patient, appreciate recommendations. -Nonoperative management, continue to keep position for healing. - NWB right UE - repeat XR in 2-3 weeks - PT - OP ff up with Ortho DVT prophylaxis - on Coumadin Discussed with the patient, nurse. Quin Horne MD Dec 10, 2017 11:37
[2017-12-10 12:00] VITALS: BP 130/76; PULSE 70; RESP 16; TEMP 98.2; O2SAT 98
[2017-12-10 16:00] VITALS: BP 126/75; PULSE 66; RESP 16; TEMP 98.2; O2SAT 99
[2017-12-10] MEDS: WARFARIN SOD 4 MG TAB PO SCH ×2 (16:00→16:41)
[2017-12-10] MEDS: ACETAMINOPHEN/HYDROcodone 325 MG/5 MG TAB PO PRN (20:54)
[2017-12-11] VITALS: BP 129/57; PULSE 122; RESP 18; TEMP 98.1; O2SAT 96
[2017-12-11 04:00] VITALS: BP 126/66; PULSE 117; RESP 18; TEMP 98.6; O2SAT 96
[2017-12-11] MEDS: ACETAMINOPHEN/HYDROcodone 325 MG/5 MG TAB PO PRN (05:49)
[2017-12-11 08:00] VITALS: BP 157/61; PULSE 111; RESP 20; TEMP 98.2; O2SAT 97
[2017-12-11 09:22] LABS: INTERNATIONAL NORMALIZED RATIO 1.3 RATIO; PROTHROMBIN TIME - PATIENT 12.7 SEC (9.8-11.6)
[2017-12-11] MEDS: CARVEDILOL 3.125 MG TAB PO SCH ×2 (09:49→22:26)
[2017-12-11] MEDS: levETIRAcetam 500 MG/5 ML UDC PO SCH ×2 (09:50→21:00)
[2017-12-11] MEDS: ATORVASTATIN 10 MG TAB PO SCH (09:50)
[2017-12-11] MEDS: DOCUSATE SODIUM 50 MG/SENNA 8.6 MG TAB PO SCH ×2 (09:50→21:00)
[2017-12-11] MEDS: LACTOBACILLUS ACIDOPHILUS TAB PO SCH ×4 (09:50→21:00)
[2017-12-11] MEDS: HALOPERIDOL LACTATE ORAL CONC 10 MG/5 ML CUP PO SCH ×2 (09:50→21:00)
[2017-12-11] MEDS: LISINOPRIL 5 MG TAB PO SCH ×2 (09:51→22:26)
[2017-12-11] MEDS: DIAZEPAM 5 MG TAB PO SCH ×2 (09:51→22:26)
[2017-12-11] MEDS: QUEtiapine FUMARATE 25 MG TAB PO SCH ×2 (09:51→12:00)
[2017-12-11 12:00] VITALS: BP 115/56; PULSE 103; RESP 20; TEMP 98.4; O2SAT 98
--- NOTE | 2017-12-11 14:30 | HHI.PR ---
Subjective Remarks Had 2 bowel movements today. VSS No new motor deficit. No complaints at this time Objective Vitals Vital Signs Date Time Temp Pulse Resp B/P (MAP) Pulse Ox O2 Delivery O2 Flow Rate FiO2 12/11/17 12:00 98.4 103 20 115/56 (75) 98 12/11/17 08:00 98.2 111 20 157/61 (93) 97 12/11/17 04:00 98.6 117 18 126/66 (86) 96 12/11/17 00:00 98.1 122 18 129/57 (81) 96 12/10/17 21:57 18 12/10/17 16:00 98.2 66 16 126/75 (92) 99 I/O 12/10/17 12/10/17 12/10/17 12/11/17 12/11/17 12/11/17 07:00 15:00 23:00 07:00 15:00 23:00 Intake Total 480 ml 690 ml Balance 480 ml 690 ml Intake Oral 480 ml 690 ml # Voids 3 2 # Bowel Movements 4 2 4 Objective Remarks GENERAL: White female with right hemiparesis visibly agitated and yelling out " I do not care" CARDIOVASCULAR: Regular rate and rhythm without murmurs, gallops, or rubs. RESPIRATORY: Breath sounds equal bilaterally. No accessory muscle use. GASTROINTESTINAL: Abdomen soft, non-tender, nondistended. MUSCULOSKELETAL: No cyanosis, or edema. Right-sided weakness NEUROLOGIC: Right hemiparesis of upper and lower extremities moves left arm, visibly agitated repeating over and over again same phrase. 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 - Continue Coumadin. Continue PT/OT. -PT/INR from yesterday subtherapeutic, patient has been on and off allowing lab to draw INRs as well as on and off taking medications -Nurse will try and see if patient calms down and call lab to come up and draw INR -If she continues noncompliance ? Change to a different agent of anticoagulation Seizure - Continue Keppra. Seizure precautions Hypertension, uncontrolled patient is refusing meds: Discussed with the patient at length risk of having another stroke with elevated blood pressure. Patient says she is going to take medications however she is noncompliant. - Continue JAYLEN inhibitor, beta evonne. Vasotec IV as needed, hydralazine po 10 mg q6 hrs prn if bP > 160/90 -BP fluctuates, possibly related to agitation. Add haldol, will consult psych C. difficile colitis (hyper virulent strain) - s/p Flagyl and vancomycin treatment. Appreciate infectious disease recommendations. - Reported diarrhea Bipolar disorder, agitation - increase- refusing meds - Continue Seroquel. - seen by Psychiatry Cardiomyopathy - Continue beta evonne, JAYLEN inhibitor. Right subacute humeral fracture- occurred 09/30- ER - never got to see an Ortho referral from SNF -Orthopedic services saw patient, appreciate recommendations. -Nonoperative management, continue to keep position for healing. - NWB right UE - repeat XR in 2-3 weeks - PT - OP ff up with Ortho DVT prophylaxis - on Coumadin Discussed with the patient, nurse. Quin Horne MD Dec 11, 2017 14:30
[2017-12-11 15:38] VITALS: BP 121/56; PULSE 105; RESP 20; TEMP 101; O2SAT 96
[2017-12-11] MEDS: WARFARIN SOD 4 MG TAB PO SCH (16:00)
[2017-12-11] MEDS ORDERED: ACETAMINOPHEN 1000 MG/100 ML 100 ML IV PRN (16:45)
[2017-12-11] MEDS ORDERED: ACETAMINOPHEN 1000 MG/100 ML 65 ML IV ONE (16:45)
--- NOTE | 2017-12-11 17:55 | RADRPT ---
EXAM DATE/TIME: 12/11/2017 17:02 [facility] COMPARISON: CHEST SINGLE AP, November 04, 2017, 9:26. INDICATIONS : Fever. MEDICAL HISTORY : Stroke. Hypertension Cardiovascular disease. SURGICAL HISTORY : None. ENCOUNTER: Subsequent ACUITY: 1 week PAIN SCORE: Non-responsive. LOCATION: Bilateral chest FINDINGS: A single view of the chest demonstrates the lungs to be symmetrically aerated without evidence of mas s, infiltrate or effusion. The cardiomediastinal contours are unremarkable. Osseous structures are intact. CONCLUSION: The lungs are clear. Lionel Wood MD on December 11, 2017 at 17:53 Board Certified Radiologist. This report was verified electronically.
[2017-12-11 18:46] LABS: BACTERIA, URINE MANY /hpf; BILIRUBIN, URINE NEG (NEG); BLOOD, URINE NEG (NEG); GLUCOSE,URINE NEG (NEG); KETONE, URINE NEG (NEG); MUCUS URINE MOD /lpf (OCC); NITRITE,URINE NEG (NEG); SQUAMOUS EPITHELIAL CELL URINE 350 /hpf (0-5); URINE COLOR YELLOW (YELLW/STRAW); URINE LEUKOCYTE ESTERASE LARGE (NEG); WHITE BLOOD CELL CLUMPS MANY
[2017-12-11 19:12] LABS: LACTIC ACID SEPSIS PROTOCOL 2.2 mmol/L (0.4-2.0)
[2017-12-11 20:00] VITALS: BP 152/66; PULSE 100; RESP 18; TEMP 98.2; O2SAT 97
[2017-12-11] MEDS: SODIUM CHLORIDE 0.9% FLUSH 10 ML FLUSH IV FLUSH SCH (21:00)
[2017-12-11] MEDS: SODIUM CHLOR 0.9% 1000 ML INJ 1,000 ML IV SCH (22:44)
[2017-12-11] MEDS: metroNIDAZOLE 500 MG INJ 100 ML IV SCH (22:48)
[2017-12-12] VITALS: BP 147/56; PULSE 92; RESP 18; TEMP 98.1; O2SAT 97
[2017-12-12 04:00] VITALS: BP 104/55; PULSE 85; RESP 18; TEMP 98.3; O2SAT 98
[2017-12-12] MEDS: metroNIDAZOLE 500 MG INJ 100 ML IV SCH ×3 (04:48→21:14)
[2017-12-12] MEDS: SODIUM CHLOR 0.9% 1000 ML INJ 1,000 ML IV SCH ×2 (04:50→16:20)
[2017-12-12 07:22] LABS: INTERNATIONAL NORMALIZED RATIO 1.2 RATIO; PROTHROMBIN TIME - PATIENT 12.1 SEC (9.8-11.6)
[2017-12-12] MEDS: LACTOBACILLUS ACIDOPHILUS TAB PO SCH ×2 (08:03→21:00)
[2017-12-12] MEDS: levETIRAcetam 500 MG/5 ML UDC PO SCH ×2 (08:04→21:13)
[2017-12-12] MEDS: ATORVASTATIN 10 MG TAB PO SCH (08:04)
[2017-12-12] MEDS: HALOPERIDOL LACTATE ORAL CONC 10 MG/5 ML CUP PO SCH ×2 (08:04→21:22)
[2017-12-12] MEDS: DOCUSATE SODIUM 50 MG/SENNA 8.6 MG TAB PO SCH ×2 (08:04→21:00)
[2017-12-12] MEDS: CARVEDILOL 3.125 MG TAB PO SCH ×3 (08:04→21:22)
[2017-12-12] MEDS: SODIUM CHLORIDE 0.9% FLUSH 10 ML FLUSH IV FLUSH SCH ×2 (08:04→21:00)
[2017-12-12] MEDS: DIAZEPAM 5 MG TAB PO SCH ×3 (08:05→21:14)
[2017-12-12] MEDS: QUEtiapine FUMARATE 25 MG TAB PO SCH ×2 (08:05→12:00)
[2017-12-12] MEDS: LISINOPRIL 5 MG TAB PO SCH ×2 (08:05→21:00)
[2017-12-12 08:09] VITALS: BP 91/50; PULSE 91; RESP 18; TEMP 97.7; O2SAT 94
--- NOTE | 2017-12-12 11:22 | HHI.PR ---
Subjective Remarks Still with diarrhea. No fever overnight. Able to eat. She denies having any abdominal cramps. Objective Vitals Vital Signs Date Time Temp Pulse Resp B/P (MAP) Pulse Ox O2 Delivery O2 Flow Rate FiO2 12/12/17 08:09 97.7 91 18 91/50 (64) 94 12/12/17 04:00 98.3 85 18 104/55 (71) 98 12/12/17 00:00 98.1 92 18 147/56 (86) 97 12/11/17 20:00 98.2 100 18 152/66 (94) 97 12/11/17 15:38 101.0 105 20 121/56 (77) 96 12/11/17 12:00 98.4 103 20 115/56 (75) 98 I/O 12/11/17 12/11/17 12/11/17 12/12/17 12/12/17 12/12/17 07:00 15:00 23:00 07:00 15:00 23:00 Intake Total 690 ml 100 ml Output Total 10 ml Balance 690 ml 90 ml Intake Oral 690 ml IV Total 100 ml Output Urine Total 10 ml # Voids 2 1 # Bowel Movements 2 4 2 4 2 Objective Remarks GENERAL: White female with right hemiparesis visibly agitated and yelling out " I do not care" CARDIOVASCULAR: Regular rate and rhythm without murmurs, gallops, or rubs. RESPIRATORY: Breath sounds equal bilaterally. No accessory muscle use. GASTROINTESTINAL: Abdomen soft, non-tender, nondistended. MUSCULOSKELETAL: No cyanosis, or edema. Right-sided weakness NEUROLOGIC: Right hemiparesis of upper and lower extremities moves left arm, visibly agitated repeating over and over again same phrase. 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 - Continue Coumadin. Continue PT/OT. -PT/INR from yesterday subtherapeutic, patient has been on and off allowing lab to draw INRs as well as on and off taking medications -Nurse will try and see if patient calms down and call lab to come up and draw INR -If she continues noncompliance ? Change to a different agent of anticoagulation Seizure - Continue Keppra. Seizure precautions Hypertension, uncontrolled patient is refusing meds: Discussed with the patient at length risk of having another stroke with elevated blood pressure. Patient says she is going to take medications however she is noncompliant. - Continue JAYLEN inhibitor, beta evonne. Vasotec IV as needed, hydralazine po 10 mg q6 hrs prn if bP > 160/90 -BP fluctuates, possibly related to agitation. Add haldol, will consult psych C. difficile colitis (hyper virulent strain) - s/p Flagyl and vancomycin treatment. Appreciate infectious disease recommendations. - Reported diarrhea Bipolar disorder, agitation - increase- refusing meds - Continue Seroquel. - seen by Psychiatry Cardiomyopathy - Continue beta evonne, JAYLEN inhibitor. Right subacute humeral fracture- occurred 09/30- ER - never got to see an Ortho referral from SNF -Orthopedic services saw patient, appreciate recommendations. -Nonoperative management, continue to keep position for healing. - NWB right UE - repeat XR in 2-3 weeks - PT - OP ff up with Ortho DVT prophylaxis - on Coumadin Discussed with the patient, nurse. Quin Horne MD Dec 12, 2017 11:21
[2017-12-12 12:45] VITALS: BP 129/58; PULSE 75; RESP 18; TEMP 98.1; O2SAT 100
[2017-12-12 15:58] VITALS: BP 123/60; PULSE 81; RESP 18; TEMP 98.3; O2SAT 97
[2017-12-12] MEDS: WARFARIN SOD 4 MG TAB PO SCH (16:00)
[2017-12-12] MEDS: VANCOMYCIN 25 MG/ML SOLN 100 ML BOTTLE PO SCH ×2 (18:00→21:00)
[2017-12-12 21:33] VITALS: BP 152/66; PULSE 95; RESP 20; TEMP 97.3; O2SAT 100
[2017-12-13] VITALS (7 sets, daily range): BP systolic 121–160; BP diastolic 58–93; PULSE 79–118; RESP 17–22; TEMP 97–98; O2SAT 95–100
[2017-12-13] MEDS: metroNIDAZOLE 500 MG INJ 100 ML IV SCH ×3 (03:50→22:32)
[2017-12-13] MEDS: SODIUM CHLOR 0.9% 1000 ML INJ 1,000 ML IV SCH ×2 (03:54→18:18)
[2017-12-13 08:01] LABS: INTERNATIONAL NORMALIZED RATIO 1.1 RATIO; PROTHROMBIN TIME - PATIENT 11.5 SEC (9.8-11.6)
[2017-12-13] MEDS: CARVEDILOL 3.125 MG TAB PO SCH ×2 (09:00→21:00)
[2017-12-13] MEDS: ATORVASTATIN 10 MG TAB PO SCH (09:00)
[2017-12-13] MEDS: SODIUM CHLORIDE 0.9% FLUSH 10 ML FLUSH IV FLUSH SCH ×2 (09:00→22:32)
[2017-12-13] MEDS: DIAZEPAM 5 MG TAB PO SCH ×2 (09:00→21:00)
[2017-12-13] MEDS: DOCUSATE SODIUM 50 MG/SENNA 8.6 MG TAB PO SCH ×2 (09:00→21:00)
[2017-12-13] MEDS: LACTOBACILLUS ACIDOPHILUS TAB PO SCH ×2 (09:00→21:00)
[2017-12-13] MEDS: QUEtiapine FUMARATE 25 MG TAB PO SCH ×2 (09:00→11:53)
[2017-12-13] MEDS: HALOPERIDOL LACTATE ORAL CONC 10 MG/5 ML CUP PO SCH ×2 (09:28→20:30)
[2017-12-13] MEDS: levETIRAcetam 500 MG/5 ML UDC PO SCH ×2 (09:28→20:30)
--- NOTE | 2017-12-13 09:28 | PD.ORT.PN ---
Subjective Subjective Remarks Patient is stable with no new complaints Objective Vitals Vital Signs Date Time Temp Pulse Resp B/P (MAP) Pulse Ox O2 Delivery O2 Flow Rate FiO2 12/13/17 08:32 97.5 85 18 160/68 (98) 95 12/13/17 05:18 98.0 92 20 148/68 (94) 96 12/13/17 00:00 97.5 118 22 143/93 (110) 96 12/12/17 21:33 97.3 95 20 152/66 (94) 100 12/12/17 15:58 98.3 81 18 123/60 (81) 97 12/12/17 12:45 98.1 75 18 129/58 (81) 100 I/O 12/12/17 12/12/17 12/12/17 12/13/17 12/13/17 12/13/17 07:00 15:00 23:00 07:00 15:00 23:00 Intake Total 855 ml 676 ml Balance 855 ml 676 ml IV Total 855 ml 676 ml # Voids 1 2 1 1 # Bowel Movements 4 3 2 1 1 Other Results Laboratory Tests Test 12/13/17 06:57 Prothromb Time International Ratio 1.1 RATIO Prothrombin Time 11.5 SEC (9.8-11.6) Objective Remarks Right upper extremity mild tenderness to palpation of proximal humerus. Good capillary refills in distal pulses. Week movement of hands Assessment & Plan Assessment and Plan Right proximal humerus fracture Subacute and will continue nonoperative treatment. We'll put her into a sling and swath today that has been removed X-rays need to be obtained next week for continued alignment nonweightbearing right upper extremity Avi Thomas Jr. Dec 13, 2017 09:28
[2017-12-13] MEDS: LISINOPRIL 5 MG TAB PO SCH ×2 (09:29→21:00)
[2017-12-13] MEDS: VANCOMYCIN 25 MG/ML SOLN 100 ML BOTTLE PO SCH ×4 (09:31→20:30)
--- NOTE | 2017-12-13 15:01 | HHI.PR ---
Subjective Remarks Refusing meds. Blood pressure is elevated received IV Vasotec. Noted some wound on right heel. Discussed with the nurse. Objective Vitals Vital Signs Date Time Temp Pulse Resp B/P (MAP) Pulse Ox O2 Delivery O2 Flow Rate FiO2 12/13/17 12:11 97.3 92 17 121/58 (79) 98 12/13/17 08:32 97.5 85 18 160/68 (98) 95 12/13/17 05:18 98.0 92 20 148/68 (94) 96 12/13/17 00:00 97.5 118 22 143/93 (110) 96 12/12/17 21:33 97.3 95 20 152/66 (94) 100 12/12/17 15:58 98.3 81 18 123/60 (81) 97 I/O 12/12/17 12/12/17 12/12/17 12/13/17 12/13/17 12/13/17 07:00 15:00 23:00 07:00 15:00 23:00 Intake Total 855 ml 676 ml Balance 855 ml 676 ml IV Total 855 ml 676 ml # Voids 1 2 1 3 # Bowel Movements 4 3 2 1 5 Imaging Last Impressions Chest X-Ray 12/11/17 0000 Signed Impressions: Service Date/Time: Monday, December 11, 2017 17:02 - CONCLUSION: The lungs are clear. Lionel Wood MD Humerus X-Ray 12/02/17 0000 Signed Impressions: Service Date/Time: Saturday, December 02, 2017 11:08 - CONCLUSION: 1. Fracture through the proximal humerus. There is periosteal bone formation suggesting healing. Nikolas Stewart MD Neck CTA 10/27/17 0000 Signed Impressions: Service Date/Time: Friday, October 27, 2017 17:42 - CONCLUSION: 1. Occluded left internal carotid artery 2. Mild narrowing at the origin of the right internal carotid artery measuring 30%%. 3. Patent vertebral arteries with good flow. Price Cee MD Head CTA 10/27/17 0000 Signed Impressions: Service Date/Time: Friday, October 27, 2017 17:42 - CONCLUSION: 1. Occluded intracranial segment of the left internal carotid artery. 2. Very scant flow in the left middle cerebral artery distribution with proximal MCA occlusion. 3. Evolving large left MCA infarct. Price Cee MD Head CT 10/27/17 0000 Signed Impressions: Service Date/Time: Friday, October 27, 2017 17:34 - CONCLUSION: 1. No evidence of acute right-sided infarction. Cystic encephalomalacia involving the left middle cerebral artery distribution unchanged 2. Pansinusitis Soren Rose MD Carotid Artery Ultrasound 10/27/17 0000 Signed Impressions: Service Date/Time: Friday, October 27, 2017 16:16 - CONCLUSION: 1. Findings of left carotid occlusion. CT angiography of the carotid arteries the brain is recommended for further evaluation Soren Rose MD Brain MRI 10/26/17 0000 Signed Impressions: Service Date/Time: Thursday, October 26, 2017 16:34 - CONCLUSION: Cystic encephalomalacia involving large left middle cerebral artery ischemic infarction. There is a small focus of restricted diffusion in the posterior left frontal region without hemorrhage characteristic of extension of the infarct. Pansinusitis Soren Rose MD Radius/Ulna X-Ray 10/25/17 0000 Signed Impressions: Service Date/Time: Wednesday, October 25, 2017 20:03 - CONCLUSION: 1. No acute fracture or dislocation. No bony destructive changes. Carlton Early MD Objective Remarks GENERAL: White female with right hemiparesis visibly agitated and yelling out " I do not care" CARDIOVASCULAR: Regular rate and rhythm without murmurs, gallops, or rubs. RESPIRATORY: Breath sounds equal bilaterally. No accessory muscle use. GASTROINTESTINAL: Abdomen soft, non-tender, nondistended. MUSCULOSKELETAL: No cyanosis, or edema. Right-sided weakness SKIN: right heel wound NEUROLOGIC: Right hemiparesis of upper and lower extremities moves left arm, visibly agitated repeating over and over again same phrase. 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 - Continue Coumadin. Continue PT/OT. -PT/INR from yesterday subtherapeutic, patient has been on and off allowing lab to draw INRs as well as on and off taking medications -Nurse will try and see if patient calms down and call lab to come up and draw INR -If she continues noncompliance ? Change to a different agent of anticoagulation Seizure - Continue Keppra. Seizure precautions Hypertension, uncontrolled patient is refusing meds: Discussed with the patient at length risk of having another stroke with elevated blood pressure. Patient says she is going to take medications however she is noncompliant. - Continue JAYLEN inhibitor, beta evonne. Vasotec IV as needed, hydralazine po 10 mg q6 hrs prn if bP > 160/90 -BP fluctuates, possibly related to agitation. Add haldol, will consult psych C. difficile colitis (hyper virulent strain) - s/p Flagyl and vancomycin treatment. Appreciate infectious disease recommendations. - Reported diarrhea Right heel wound. Consult wound care. Special matress ordered. Bipolar disorder, agitation - increase- refusing meds - Continue Seroquel. - seen by Psychiatry Cardiomyopathy - Continue beta evonne, JAYLEN inhibitor. Right subacute humeral fracture- occurred 09/30- ER - never got to see an Ortho referral from SNF -Orthopedic services saw patient, appreciate recommendations. -Nonoperative management, continue to keep position for healing. - NWB right UE - repeat XR in 2-3 weeks - PT - OP ff up with Ortho DVT prophylaxis - on Coumadin Discussed with the patient, nurse. Quin Horne MD Dec 13, 2017 15:01
[2017-12-13] MEDS: WARFARIN SOD 4 MG TAB PO SCH (16:00)
--- NOTE | 2017-12-13 16:52 | PD.WCN.NOT ---
Wound Consult Description: Consult for right heel per Dr Horne Communicated with: ABIGAIL Gallardo Patient Dr Horne Recommendation: Float right heel off mattress surface at all times by obtaining and placing patient right foot in heel raiser boot that was ordered from [facility] [place] right lateral heel clear fluid filled blister (Stage 2 pressure injury) with Cavilon skin barrier film BID and PRN Place patient on [place] [employer] specialty surface (ordered) and continue to float heels off mattress surface Continue to reposition patient every 2 hours and PRN for comfort *PLEASE USE ONLY DISPOSABLE ULTRASORB GREEN PAD FOR MOISTURE WITH SPECIALTY SURFACE* Please do NOT use cloth underpads with specialty surfaces. Thank You. Additional Information: Patient seen on for wound evaluation of right heel. Patient was sleeping upon arrival, gently woken by writers voice and it was explained that remote mortgage underwriter would be looking at and measuring her blister on her right foot. Patient shook head in agreement. Right lateral heel bulla measured 3cm x 2cm. Periwound is blanching erythema. There is no drainage noted to bulla at this time. Right and left feet were both elevated off mattress surface with a pillow underneath the patients calves. Left heel is unremarkable. ABIGAIL Gallardo states that patient is flaccid on her right side and does not move her right lower extremity. Patient right lateral heel bulla was sprayed with Cavilon skin barrier film and left open to air with this being recommended BID. Recommendations were discussed with Dr Horne and ABIGAIL Gallardo. Orders were placed for blue heel raiser boot to right foot and Cavilon skin prep to be applied BID. There was an order to obtain and place patient on a specialty surface as well and communicated to [facility] with [facility]. Rashmi Jaimes [facility] Dec 13, 2017 16:52
[2017-12-14] MEDS: metroNIDAZOLE 500 MG INJ 100 ML IV SCH (03:12)
[2017-12-14] MEDS: SODIUM CHLOR 0.9% 1000 ML INJ 1,000 ML IV SCH ×2 (03:12→16:30)
[2017-12-14 05:22] VITALS: BP 153/71; PULSE 74; RESP 18; TEMP 98; O2SAT 97
[2017-12-14 08:00] VITALS: BP 158/70; PULSE 91; RESP 18; TEMP 97.4; O2SAT 98
[2017-12-14] MEDS: SODIUM CHLORIDE 0.9% FLUSH 10 ML FLUSH IV FLUSH SCH ×2 (09:00→20:32)
[2017-12-14] MEDS: DIAZEPAM 5 MG TAB PO SCH ×2 (09:00→20:30)
[2017-12-14] MEDS: DOCUSATE SODIUM 50 MG/SENNA 8.6 MG TAB PO SCH ×2 (09:00→20:31)
[2017-12-14] MEDS: ATORVASTATIN 10 MG TAB PO SCH (09:00)
[2017-12-14] MEDS: LISINOPRIL 5 MG TAB PO SCH ×2 (09:00→20:30)
[2017-12-14] MEDS: CARVEDILOL 3.125 MG TAB PO SCH ×2 (09:00→20:32)
[2017-12-14] MEDS: QUEtiapine FUMARATE 25 MG TAB PO SCH ×2 (09:00→12:33)
[2017-12-14] MEDS: LACTOBACILLUS ACIDOPHILUS TAB PO SCH ×2 (09:00→20:30)
[2017-12-14] MEDS: HALOPERIDOL LACTATE ORAL CONC 10 MG/5 ML CUP PO SCH ×2 (09:07→20:30)
[2017-12-14] MEDS: levETIRAcetam 500 MG/5 ML UDC PO SCH ×2 (09:07→20:30)
[2017-12-14] MEDS: VANCOMYCIN 25 MG/ML SOLN 100 ML BOTTLE PO SCH ×4 (09:07→20:30)
--- NOTE | 2017-12-14 09:42 | HHI.PR ---
Subjective Remarks In bed. Refusing most of her medications. Diarrhea improved. No nausea or vomiting. No fever or chills. Objective Vitals Vital Signs Date Time Temp Pulse Resp B/P (MAP) Pulse Ox O2 Delivery O2 Flow Rate FiO2 12/14/17 05:22 98.0 74 18 153/71 (98) 97 12/13/17 23:45 97.5 79 18 144/60 (88) 97 12/13/17 20:00 97.0 83 18 153/67 (95) 100 12/13/17 16:38 97.9 87 17 138/62 (87) 98 12/13/17 12:11 97.3 92 17 121/58 (79) 98 I/O 12/13/17 12/13/17 12/13/17 12/14/17 12/14/17 12/14/17 07:00 15:00 23:00 07:00 15:00 23:00 Intake Total 676 ml 948 ml Balance 676 ml 948 ml IV Total 676 ml 948 ml # Voids 1 3 4 2 # Bowel Movements 1 5 2 3 Imaging Last Impressions Chest X-Ray 12/11/17 0000 Signed Impressions: Service Date/Time: Monday, December 11, 2017 17:02 - CONCLUSION: The lungs are clear. Lionel Wood MD Humerus X-Ray 12/02/17 0000 Signed Impressions: Service Date/Time: Saturday, December 02, 2017 11:08 - CONCLUSION: 1. Fracture through the proximal humerus. There is periosteal bone formation suggesting healing. Nikolas Stewart MD Neck CTA 10/27/17 0000 Signed Impressions: Service Date/Time: Friday, October 27, 2017 17:42 - CONCLUSION: 1. Occluded left internal carotid artery 2. Mild narrowing at the origin of the right internal carotid artery measuring 30%%. 3. Patent vertebral arteries with good flow. Price Cee MD Head CTA 10/27/17 0000 Signed Impressions: Service Date/Time: Friday, October 27, 2017 17:42 - CONCLUSION: 1. Occluded intracranial segment of the left internal carotid artery. 2. Very scant flow in the left middle cerebral artery distribution with proximal MCA occlusion. 3. Evolving large left MCA infarct. Price Cee MD Head CT 10/27/17 0000 Signed Impressions: Service Date/Time: Friday, October 27, 2017 17:34 - CONCLUSION: 1. No evidence of acute right-sided infarction. Cystic encephalomalacia involving the left middle cerebral artery distribution unchanged 2. Pansinusitis Soren Rose MD Carotid Artery Ultrasound 10/27/17 0000 Signed Impressions: Service Date/Time: Friday, October 27, 2017 16:16 - CONCLUSION: 1. Findings of left carotid occlusion. CT angiography of the carotid arteries the brain is recommended for further evaluation Soren Rose MD Brain MRI 10/26/17 0000 Signed Impressions: Service Date/Time: Thursday, October 26, 2017 16:34 - CONCLUSION: Cystic encephalomalacia involving large left middle cerebral artery ischemic infarction. There is a small focus of restricted diffusion in the posterior left frontal region without hemorrhage characteristic of extension of the infarct. Pansinusitis Soren Rose MD Radius/Ulna X-Ray 10/25/17 0000 Signed Impressions: Service Date/Time: Wednesday, October 25, 2017 20:03 - CONCLUSION: 1. No acute fracture or dislocation. No bony destructive changes. Carlton Early MD Objective Remarks GENERAL: White female with right hemiparesis visibly agitated and yelling out " I do not care" CARDIOVASCULAR: Regular rate and rhythm without murmurs, gallops, or rubs. RESPIRATORY: Breath sounds equal bilaterally. No accessory muscle use. GASTROINTESTINAL: Abdomen soft, non-tender, nondistended. MUSCULOSKELETAL: No cyanosis, or edema. Right-sided weakness SKIN: right heel wound NEUROLOGIC: Right hemiparesis of upper and lower extremities moves left arm, visibly agitated repeating over and over again same phrase. 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 - Continue Coumadin. Continue PT/OT. -PT/INR from yesterday subtherapeutic, patient has been on and off allowing lab to draw INRs as well as on and off taking medications -Nurse will try and see if patient calms down and call lab to come up and draw INR -If she continues noncompliance ? Change to a different agent of anticoagulation Seizure - Continue Keppra. Seizure precautions Hypertension, uncontrolled patient is refusing meds: Discussed with the patient at length risk of having another stroke with elevated blood pressure. Patient says she is going to take medications however she is noncompliant. - Continue JAYLEN inhibitor, beta evonne. Vasotec IV as needed, hydralazine po 10 mg q6 hrs prn if bP > 160/90 -BP fluctuates, possibly related to agitation. Add haldol, will consult psych C. difficile colitis (hyper virulent strain) - s/p Flagyl and vancomycin treatment. Appreciate infectious disease recommendations. - Reported diarrhea Right heel wound. Consult wound care, appreciate recommendations. Special matress ordered. Bipolar disorder, agitation - increase- refusing meds - Continue Seroquel. - seen by Psychiatry Cardiomyopathy - Continue beta evonne, JAYLEN inhibitor. Right subacute humeral fracture- occurred 09/30- ER - never got to see an Ortho referral from SNF -Orthopedic services saw patient, appreciate recommendations. -Nonoperative management, continue to keep position for healing. - NWB right UE - repeat XR in 2-3 weeks - PT - OP ff up with Ortho DVT prophylaxis - on Coumadin Discussed with the patient, nurse. Quin Horne MD Dec 14, 2017 09:42
[2017-12-14 11:03] LABS: INTERNATIONAL NORMALIZED RATIO 1.1 RATIO; PROTHROMBIN TIME - PATIENT 11.6 SEC (9.8-11.6)
[2017-12-14 12:00] VITALS: BP 161/70; PULSE 88; RESP 18; TEMP 98; O2SAT 99
[2017-12-14 16:00] VITALS: BP 187/76; PULSE 83; RESP 18; TEMP 98.8; O2SAT 99
[2017-12-14] MEDS: WARFARIN SOD 4 MG TAB PO SCH (16:00)
[2017-12-14 20:00] VITALS: BP 129/88; PULSE 80; RESP 19; TEMP 98.8; O2SAT 96
[2017-12-15 00:50] VITALS: BP 133/80; PULSE 89; RESP 20; TEMP 97.9; O2SAT 95
[2017-12-15] MEDS: SODIUM CHLOR 0.9% 1000 ML INJ 1,000 ML IV SCH ×3 (04:25→21:46)
[2017-12-15 05:00] VITALS: BP 120/67; PULSE 69; RESP 21; TEMP 97.3; O2SAT 95
[2017-12-15 08:00] VITALS: BP 133/62; PULSE 96; RESP 18; TEMP 99.4; O2SAT 96
[2017-12-15] MEDS: QUEtiapine FUMARATE 25 MG TAB PO SCH ×3 (08:00→12:12)
[2017-12-15] MEDS: LACTOBACILLUS ACIDOPHILUS TAB PO SCH ×2 (08:00→21:45)
[2017-12-15] MEDS: DIAZEPAM 5 MG TAB PO SCH ×2 (08:01→21:45)
[2017-12-15] MEDS: levETIRAcetam 500 MG/5 ML UDC PO SCH ×2 (08:01→21:45)
[2017-12-15] MEDS: ATORVASTATIN 10 MG TAB PO SCH (08:01)
[2017-12-15] MEDS: HALOPERIDOL LACTATE ORAL CONC 10 MG/5 ML CUP PO SCH ×2 (08:02→21:00)
[2017-12-15] MEDS: DOCUSATE SODIUM 50 MG/SENNA 8.6 MG TAB PO SCH ×2 (08:02→21:00)
[2017-12-15] MEDS: SODIUM CHLORIDE 0.9% FLUSH 10 ML FLUSH IV FLUSH SCH ×2 (08:02→21:00)
[2017-12-15] MEDS: VANCOMYCIN 25 MG/ML SOLN 100 ML BOTTLE PO SCH ×5 (08:03→21:00)
[2017-12-15] MEDS: CARVEDILOL 3.125 MG TAB PO SCH ×2 (08:04→21:00)
[2017-12-15] MEDS: LISINOPRIL 5 MG TAB PO SCH ×2 (08:05→21:00)
--- NOTE | 2017-12-15 10:59 | HHI.PR ---
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 She gets very frustrated because she cannot communicate. She is able to say at times simple words like yes. Patient had 7 bowel movements yesterday. No bowel movement today so far. She remains afebrile. She cannot move her right side. No acute events. Objective Vitals Vital Signs Date Time Temp Pulse Resp B/P (MAP) Pulse Ox O2 Delivery O2 Flow Rate FiO2 12/15/17 08:00 99.4 96 18 133/62 (85) 96 12/15/17 05:00 97.3 69 21 120/67 (84) 95 12/15/17 00:50 97.9 89 20 133/80 (97) 95 12/14/17 20:00 98.8 80 19 129/88 (102) 96 12/14/17 16:00 98.8 83 18 187/76 (113) 99 12/14/17 12:00 98.0 88 18 161/70 (100) 99 I/O 12/14/17 12/14/17 12/14/17 12/15/17 12/15/17 12/15/17 07:00 15:00 23:00 07:00 15:00 23:00 Intake Total 875 ml 100 ml Balance 875 ml 100 ml Intake Oral 875 ml 100 ml # Voids 2 2 6 # Bowel Movements 3 0 0 Objective Remarks GENERAL: White female in no acute distress but is very agitated because she cannot express herself. CARDIOVASCULAR: Regular rate and rhythm without murmurs, gallops, or rubs. RESPIRATORY: Breath sounds equal bilaterally. No accessory muscle use. GASTROINTESTINAL: Abdomen soft, non-tender, nondistended. MUSCULOSKELETAL: No cyanosis, or edema. Right-sided weakness SKIN: right heel wound NEUROLOGIC: Right hemiparesis of upper and lower extremities moves left arm. When I tried to move her LE i show her move her right leg. Procedures none Medications and IVs Current Medications Levetriacetam 100 ml @ 400 mls/hr BOLUS ONCE IV Last administered on at 21:01; Start 10/25/17 at 20:30; Stop 10/25/17 at 20:44; Status DC Lorazepam (Ativan Inj) 1 mg Q5M PRN IV PUSH SEIZURE; Start 10/25/17 at 20:15; Stop 10/28/17 at 08:27; Status DC Sodium Chloride 1,000 ml @ 100 mls/hr Q10H IV Last administered on 10/27/17at 23 :00; Start 10/25/17 at 21:00; Stop 10/28/17 at 08:27; Status DC Sodium Chloride (NS Flush) 2 ml UNSCH PRN IV FLUSH FLUSH AFTER USING IV ACCESS ; Start 10/25/17 at 20:15; Stop 10/27/17 at 13:28; Status DC Sodium Chloride (NS Flush) 2 ml BID IV FLUSH Last administered on 10/27/17at 20: 20; Start 10/25/17 at 21:00; Stop 10/28/17 at 08:03; Status DC Ondansetron HCl (Zofran Inj) 4 mg Q6H PRN IVP NAUSEA OR VOMITING; Start at 20:15 Acetaminophen (Tylenol) 650 mg Q6H PRN PO FEVER/PAIN SCALE 1 TO 2 Last administered on 11/04/17at 17:50; Start 10/25/17 at 20:15 Acetaminophen/ Hydrocodone Bitart (Hays 5-325 Mg) 1 tab Q4H PRN PO PAIN SCALE 5 TO 10 Last administered on 12/11/17at 05:49; Start 10/25/17 at 20:15 Acetaminophen/ Hydrocodone Bitart (Hays 10-325 Mg) 1 tab Q4H PRN PO PAIN SCALE 6 TO 10 Last administered on 11/27/17at 23:04; Start 10/25/17 at 20:15; Stop 11/30/17 at 10:07; Status DC Senna/Docusate Sodium (Aleah-Colace) 1 tab BID PO Last administered on at 23:13; Start 10/25/17 at 21:00 Magnesium Hydroxide (Milk Of Magnesia Liq) 30 ml Q12H PRN PO Mild constipation Last administered on 11/11/17at 09:36; Start 10/25/17 at 20:15 Sennosides (Senokot) 17.2 mg Q12H PRN PO Moderate constipation Last administered on 11/17/17at 10:02; Start 10/25/17 at 20:15 Bisacodyl (Dulcolax Supp) 10 mg DAILY PRN RECTAL SEVERE CONSITIPATION; Start at 20:15 Lactulose (Lactulose Liq) 30 ml DAILY PRN PO SEVERE CONSITIPATION Last administered on 10/31/17at 08:40; Start 10/25/17 at 20:15 Aspirin (Aspirin) 325 mg DAILY PO Last administered on 10/27/17at 09:33; Start at 09:00; Stop 10/28/17 at 08:00; Status DC Atorvastatin Calcium (Lipitor) 10 mg DAILY PO Last administered on 12/15/17at 08 :01; Start 10/26/17 at 09:00 Diazepam (Valium) 5 mg Q12HR PO Last administered on 12/15/17at 08:01; Start 10/25/17 at 21:00 Metoprolol Tartrate (Lopressor Inj) 5 mg ONCE ONCE IV PUSH Last administered on 10/25/17at 20:43; Start 10/25/17 at 20:30; Stop 10/25/17 at 20:31; Status DC Levetriacetam 100 ml @ 400 mls/hr Q12H IV Last administered on 10/26/17at 17:04 ; Start 10/26/17 at 16:00; Stop 10/27/17 at 07:33; Status DC Lorazepam (Ativan Inj) 1 mg Q6HR PRN IV PUSH SEIZURES; Start 10/26/17 at 15:00 Gadodiamide (Omniscan Pf Inj) 14 ml STK-MED ONCE IVCONTRAST Last administered on 10/26/17at 16:49; Start 10/26/17 at 16:49; Stop 10/26/17 at 16:50; Status DC Levetriacetam (Keppra) 500 mg Q12HR PO Last administered on 10/27/17at 20:40; Start 10/27/17 at 09:00; Stop 10/27/17 at 20:58; Status DC Clopidogrel Bisulfate (Plavix) 75 mg DAILY PO Last administered on 10/27/17at 13: 23; Start 10/27/17 at 13:00; Stop 10/27/17 at 20:57; Status DC Sodium Chloride (NS Flush) 2 ml UNSCH PRN IV FLUSH FLUSH AFTER USING IV ACCESS ; Start 10/27/17 at 13:00; Stop 10/28/17 at 08:03; Status DC Insulin Aspart (NovoLOG SUPPLEMENTAL SCALE) 1 ACHS SQ ; Start 10/27/17 at 17:00; Stop 10/28/17 at 08:03; Status DC Dextrose (D50w (Vial) Inj) 50 ml UNSCH PRN IV PUSH HYPOGLYCEMIA-SEE COMMENTS; Start 10/27/17 at 13:00; Stop 10/28/17 at 08:03; Status DC Glucagon (Glucagon Inj) 1 mg UNSCH PRN OTHER HYPOGLYCEMIA-SEE COMMENTS; Start 10/27/17 at 13:00; Stop 10/28/17 at 08:03; Status DC Heparin Sodium (Porcine) (Heparin Inj) 5,000 units Q12HR SQ Last administered on 10/27/17at 20:40; Start 10/27/17 at 21:00; Stop 10/27/17 at 21:00; Status DC Enalaprilat (Vasotec Inj) 1.25 mg Q8H PRN IV PUSH SBP>160, DBP>90 Last administered on 11/12/17at 17:53; Start 10/27/17 at 13:45 Iohexol (Omnipaque 350 Inj) 98 ml STK-MED ONCE IVCONTRAST Last administered on 10/27/17at 17:51; Start 10/27/17 at 17:51; Stop 10/27/17 at 17:54; Status DC Heparin Sodium/ Dextrose 250 ml @ 0 mls/hr TITRATE PRN IV Coagulation Management; Start 10/27/17 at 21:00; Stop 10/27/17 at 22:27; Status DC Sodium Chloride (NS Flush) 2 ml BID IV FLUSH Last administered on 12/13/17at 22: 32; Start 10/27/17 at 21:00 Sodium Chloride (NS Flush) 2 ml UNSCH PRN IV FLUSH FLUSH AFTER USING IV ACCESS ; Start 10/27/17 at 21:00 Insulin Aspart (NovoLOG SUPPLEMENTAL SCALE) 1 ACHS SQ ; Start 10/27/17 at 21:00; Stop 11/02/17 at 11:35; Status DC Dextrose (D50w (Vial) Inj) 50 ml UNSCH PRN IV PUSH HYPOGLYCEMIA-SEE COMMENTS; Start 10/27/17 at 21:00; Stop 11/02/17 at 11:35; Status DC Glucagon (Glucagon Inj) 1 mg UNSCH PRN OTHER HYPOGLYCEMIA-SEE COMMENTS; Start 10/27/17 at 21:00; Stop 11/02/17 at 11:35; Status DC Levetriacetam 500 mg/Sodium Chloride 105 ml @ 420 mls/hr Q6HR IV Last administered on 10/27/17at 21:00; Start 10/27/17 at 21:00; Stop 10/27/17 at 23:27; Status DC Heparin Sodium/ Dextrose 250 ml @ 7 mls/hr TITRATE PRN IV Coagulation Management Last administered on 11/02/17at 12:05; Start 10/27/17 at 22:30; Stop at 15:02; Status DC Levetriacetam 500 mg/Sodium Chloride 105 ml @ 420 mls/hr Q6H IV Last administered on 10/29/17at 11:03; Start 10/28/17 at 04:00; Stop 10/29/17 at 13:57; Status DC Aspirin (Aspirin Supp) 300 mg DAILY RECTAL Last administered on 11/03/17at 07:37 ; Start 10/28/17 at 09:00; Stop 11/03/17 at 15:12; Status DC Haloperidol Lactate (Haldol Inj) 2.5 mg NOW ONCE IM Last administered on at 08:18; Start 10/28/17 at 08:15; Stop 10/28/17 at 08:16; Status DC Haloperidol Lactate (Haldol Inj) 2.5 mg Q8H PRN IM AGITATION; Start 10/28/17 at 08:15; Stop 10/28/17 at 12:26; Status DC Morphine Sulfate (Morphine Inj) 1 mg Q4H PRN IV PAIN 1-5 IF NOT TOLERATING PO; Start 10/28/17 at 08:15 Morphine Sulfate (Morphine Inj) 2 mg Q4H PRN IV PAIN 6-10 IF NOT TOLERATING PO Last administered on 11/06/17at 17:48; Start 10/28/17 at 08:15 Potassium Chloride/Sodium Chloride 1,000 ml @ 50 mls/hr Q20H IV Last administered on 10/29/17at 16:50; Start 10/28/17 at 08:30; Stop 10/30/17 at 11:10; Status DC Quetiapine Fumarate (SEROquel) 25 mg BID@09,12 PO Last administered on at 08:40; Start 10/29/17 at 09:00; Stop 10/31/17 at 15:05; Status DC Haloperidol Lactate (Haldol Inj) 2 mg Q8H PRN IM severe agitation ; Start at 12:30; Stop 10/31/17 at 15:05; Status DC Warfarin Sodium (Coumadin) 5 mg DAILY@1600 PO Last administered on 11/02/17at 16 :23; Start 10/29/17 at 16:00; Stop 11/03/17 at 15:03; Status DC Patient Medication Teaching (Coumadin Booklet) 1 ONCE ONCE OTHER Last administered on 10/29/17at 16:00; Start 10/29/17 at 16:00; Stop 10/29/17 at 16:01; Status DC Levetriacetam (Keppra) 1,000 mg Q12HR PO Last administered on 11/27/17at 22:57; Start 10/29/17 at 21:00; Stop 11/28/17 at 23:02; Status DC Quetiapine Fumarate (SEROquel) 50 mg BID@09,12 PO Last administered on at 08:00; Start 11/01/17 at 09:00 Carvedilol (Coreg) 3.125 mg Q12HR PO Last administered on 12/14/17at 20:32; Start 10/31/17 at 21:00; Status Future hold Lisinopril (Prinivil) 2.5 mg DAILY PO Last administered on 11/07/17at 09:21; Start 11/01/17 at 09:00; Stop 11/08/17 at 09:07; Status DC Miscellaneous (Pill Splitter) 1 ea UNSCH PRN OTHER SEE LABEL COMMENTS; Start at 16:45 Olanzapine (ZyPREXA INJ) 10 mg Q12H PRN IM agitation Last administered on at 07:37; Start 11/01/17 at 13:15 Patient Medication Teaching (Coumadin Booklet) 1 ONCE ONCE OTHER Last administered on 11/02/17at 16:24; Start 11/02/17 at 16:00; Stop 11/02/17 at 16:01 ; Status DC Pharmacy Profile Note 0 ml @ 0 mls/hr UNSCH OTHER ; Start 11/02/17 at 08:45; Status Future hold Patient Medication Teaching (Coumadin Booklet) 1 ONCE ONCE OTHER ; Start at 16:00; Stop 11/02/17 at 16:01; Status Cancel Warfarin Sodium (Coumadin) 1 mg ONCE ONCE PO Last administered on 11/02/17at 16 :23; Start 11/02/17 at 16:00; Stop 11/02/17 at 16:01; Status DC Potassium Chloride/Sodium Chloride 1,000 ml @ 42 mls/hr [id number] IV Last administered on 11/07/17at 15:08; Start 11/03/17 at 14:00; Stop 11/08/17 at 09:07 ; Status DC Warfarin Sodium (Coumadin) 5 mg DAILY@1600 PO ; Start 11/04/17 at 16:00; Stop at 11:56; Status DC Albuterol Sulfate (Albuterol Neb) 0.63 mg Q4HR NEB PRN NEB sob; Start 11/04/17 at 09:00 Albuterol Sulfate (Albuterol Neb) 0.63 mg Q6HR NEB NEB Last administered on at 10:19; Start 11/04/17 at 10:00; Stop 11/08/17 at 09:59; Status DC Lactobacillus Acidophilus (Lactinex) 1 tab TID PO Last administered on at 09:33; Start 11/04/17 at 09:00; Stop 12/11/17 at 18:23; Status DC Sodium Chloride (NS Flush) 2 ml UNSCH PRN IV FLUSH FLUSH AFTER USING IV ACCESS ; Start 11/04/17 at 10:15; Stop 11/04/17 at 10:17; Status DC Sodium Chloride (NS Flush) 2 ml BID IV FLUSH ; Start 11/04/17 at 21:00; Stop at 21:00; Status DC Pharmacy Profile Note 0 ml @ 0 mls/hr UNSCH OTHER ; Start 11/04/17 at 10:15; Status Cancel Vancomycin HCl 1000 mg/Sodium Chloride 250 ml @ 250 mls/hr Q12H IV ; Start at 10:15; Stop 11/04/17 at 10:24; Status DC Piperacillin Sod/ Tazobactam Sod 100 ml @ 200 mls/hr Q6H IV Last administered on 11/04/17at 21:33; Start 11/04/17 at 16:00; Stop 11/05/17 at 00:16; Status DC Piperacillin Sod/ Tazobactam Sod 100 ml @ 200 mls/hr ONCE STAT IV Last administered on 11/04/17at 11:18; Start 11/04/17 at 10:08; Stop 11/04/17 at 10:37 ; Status DC Vancomycin HCl 1150 mg/Sodium Chloride 261.5 ml @ 250 mls/hr ONCE STAT IV ; Start 11/04/17 at 10:08; Stop 11/04/17 at 11:10; Status UNV Vancomycin HCl 1000 mg/Sodium Chloride 250 ml @ 250 mls/hr ONCE ONCE IV Last administered on 11/04/17at 11:47; Start 11/04/17 at 10:30; Stop 11/05/17 at 00:16 ; Status DC Vancomycin HCl 1000 mg/Sodium Chloride 250 ml @ 250 mls/hr Q24H IV ; Start at 12:00; Stop 11/04/17 at 12:19; Status DC Miscellaneous Information SPECIFIC LAB TO BE JOSE... ONCE ONCE .XX ; Start 11/07 at 11:45; Stop 11/07/17 at 11:46; Status Cancel Vancomycin HCl 1000 mg/Sodium Chloride 250 ml @ 250 mls/hr Q24H IV ; Start at 12:00; Stop 11/05/17 at 12:00; Status DC Metronidazole (Flagyl) 500 mg Q6HR PO ; Start 11/05/17 at 00:00; Status Cancel Metronidazole (Flagyl) 500 mg ONCE ONCE PO Last administered on 11/04/17at 21: 33; Start 11/04/17 at 20:00; Stop 11/04/17 at 20:01; Status DC Vancomycin HCl (VANCOMYCIN for oral use only) 500 mg Q6H PO Last administered on 11/18/17at 17:47; Start 11/05/17 at 00:00; Stop 11/18/17 at 23:55; Status DC Metronidazole 100 ml @ 100 mls/hr Q8H IV Last administered on 11/07/17at 17:38 ; Start 11/05/17 at 08:00; Stop 11/07/17 at 17:44; Status DC Potassium Chloride (KCl Powder) 40 meq ONCE ONCE PO Last administered on at 09:11; Start 11/06/17 at 09:00; Stop 11/06/17 at 09:06; Status DC Warfarin Sodium (Coumadin) 2.5 mg DAILY@1600 PO Last administered on 11/11/17at 17:32; Start 11/06/17 at 16:00; Stop 11/12/17 at 08:58; Status DC Lisinopril (Prinivil) 5 mg BID PO Last administered on 12/14/17at 20:30; Start 11/08/17 at 21:00 Warfarin Sodium (Coumadin) 2 mg ONCE ONCE PO Last administered on 11/09/17at 17 :07; Start 11/09/17 at 16:00; Stop 11/09/17 at 16:01; Status DC Warfarin Sodium (Coumadin) 2.5 mg DAILY@1600 PO Last administered on 11/14/17at 16:31; Start 11/13/17 at 16:00; Stop 11/15/17 at 10:38; Status DC Warfarin Sodium (Coumadin) 2.5 mg DAILY@1600 PO Last administered on 12/02/17at 11:01; Start 11/16/17 at 16:00; Stop 12/03/17 at 10:23; Status DC Warfarin Sodium (Coumadin) 1 mg ONCE ONCE PO ; Start 11/23/17 at 16:00; Stop 11/23/17 at 16:01; Status DC Warfarin Sodium (Coumadin) 1 mg ONCE ONCE PO Last administered on 11/25/17at 16: 59; Start 11/25/17 at 16:00; Stop 11/25/17 at 16:01; Status DC Warfarin Sodium (Coumadin) 1 mg ONCE ONCE PO Last administered on 11/26/17at 16: 44; Start 11/26/17 at 16:00; Stop 11/26/17 at 16:01; Status DC Clonidine (Catapres) 0.1 mg ONCE ONCE PO Last administered on 11/28/17at 00:20; Start 11/28/17 at 00:15; Stop 11/28/17 at 00:16; Status DC Levetriacetam (Keppra Liq) 1,000 mg Q12HR PO Last administered on 12/15/17 08 :01; Start 11/29/17 at 09:00 Warfarin Sodium (Coumadin) 1 mg ONCE ONCE PO Last administered on 12/02/17at 15 :52; Start 12/02/17 at 16:00; Stop 12/02/17 at 16:01; Status DC Warfarin Sodium (Coumadin) 4 mg DAILY@1600 PO Last administered on 12/08/17at 15 :33; Start 12/03/17 at 16:00 Warfarin Sodium (Coumadin) 2 mg ONCE ONCE PO ; Start 12/05/17 at 16:00; Stop at 16:01; Status DC Enalaprilat (Vasotec Inj) 2.5 mg Q6H PRN IV PUSH SBP>160, DBP>90 Last administered on 12/13/17at 10:12; Start 12/07/17 at 11:15 Hydralazine HCl (Apresoline) 10 mg Q6HR PRN PO SBP>160, DBP>90; Start 12/07/17 at 11:15 Haloperidol (Haldol) 2 mg TID PRN PO AGITATION AND/OR HALLUCINATION; Start at 11:15; Stop 12/07/17 at 15:36; Status DC Haloperidol Lactate (Haldol Lactate Liq) 2 mg BID PO Last administered on at 08:02; Start 12/07/17 at 21:00 Lactobacillus Acidophilus (Lactinex) 1 tab Q12HR PO Last administered on at 08:00; Start 12/11/17 at 21:00 Metronidazole 100 ml @ 100 mls/hr Q8H IV Last administered on 12/14/17at 03:12 ; Start 12/11/17 at 20:00; Stop 12/14/17 at 12:48; Status DC Acetaminophen 65 ml @ 400 mls/hr ONCE ONCE IV Last administered on 12/11/17at 22:26; Start 12/11/17 at 16:45; Stop 12/11/17 at 18:21; Status DC Acetaminophen 100 ml @ 400 mls/hr Q8H PRN IV fever if not taking PO ; Start at 16:45 Sodium Chloride 1,000 ml @ 84 mls/hr [id number] IV Last administered on at 18:18; Start 12/11/17 at 17:00 Vancomycin HCl (Vancomycin 25 Mg/ml Liq) 250 mg QID PO Last administered on at 08:03; Start 12/12/17 at 18:00 A/P Problem List: (1) Encephalopathy ICD Code: G93.40 - Encephalopathy, unspecified (2) CVA (cerebral vascular accident) ICD Code: I63.9 - Cerebral infarction, unspecified (3) HTN (hypertension) ICD Code: I10 - Essential (primary) hypertension (4) Tobacco abuse ICD Code: Z72.0 - Tobacco use Assessment and Plan 67-year-old female with 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 - Continue Coumadin. Continue PT/OT. -PT/INR yesterday 1. pending today. pharmacist consulted. Seizure - Continue Keppra. Seizure precautions Hypertension -BP controlled. continue with current regimen. C. difficile colitis (hyper virulent strain) - s/p Flagyl and vancomycin treatment. Appreciate infectious disease recommendations. - Reported diarrhea Right heel wound. Consult wound care, appreciate recommendations. Special mattress ordered. Bipolar disorder, agitation - increase- refusing meds - Continue Seroquel. - seen by Psychiatry Cardiomyopathy - Continue beta evonne, JAYLEN inhibitor. Right subacute humeral fracture- occurred 09/30- ER - never got to see an Ortho referral from SNF -Orthopedic services saw patient, appreciate recommendations. -Nonoperative management, continue to keep position for healing. - NWB right UE - repeat XR in 2-3 weeks - PT - OP ff up with Ortho DVT prophylaxis - on Coumadin Discharge Planning noncompliance. difficulty with placement. Skylar Hinkle MD Dec 15, 2017 10:58
[2017-12-15 12:00] VITALS: BP 170/73; PULSE 93; RESP 18; TEMP 98.9; O2SAT 98
[2017-12-15] MEDS: WARFARIN SOD 4 MG TAB PO SCH (12:13)
[2017-12-15 16:00] VITALS: BP 151/66; PULSE 103; RESP 18; TEMP 98.8; O2SAT 98
[2017-12-15 20:00] VITALS: BP 184/81; PULSE 97; RESP 22; TEMP 98.5; O2SAT 98
[2017-12-15 21:10] LABS: INTERNATIONAL NORMALIZED RATIO 1.2 RATIO; PROTHROMBIN TIME - PATIENT 11.7 SEC (9.8-11.6)
[2017-12-16] VITALS: BP 134/63; PULSE 85; RESP 19; TEMP 98.1; O2SAT 97
[2017-12-16 04:00] VITALS: BP_SYST 114; BP_SYST 134; BP_DIAS 63; BP_DIAS 64; PULSE 84; PULSE 85; RESP 19; TEMP 98.1; TEMP 98.2; O2SAT 96; O2SAT 97
[2017-12-16 09:00] VITALS: BP 155/68; PULSE 89; RESP 20; TEMP 97.9; O2SAT 98
[2017-12-16] MEDS: DIAZEPAM 5 MG TAB PO SCH ×2 (09:00→20:43)
[2017-12-16] MEDS: DOCUSATE SODIUM 50 MG/SENNA 8.6 MG TAB PO SCH ×2 (09:00→20:43)
[2017-12-16] MEDS: SODIUM CHLORIDE 0.9% FLUSH 10 ML FLUSH IV FLUSH SCH ×2 (09:00→20:44)
[2017-12-16] MEDS: SODIUM CHLOR 0.9% 1000 ML INJ 1,000 ML IV SCH (09:08)
[2017-12-16] MEDS: levETIRAcetam 500 MG/5 ML UDC PO SCH ×2 (09:50→20:43)
[2017-12-16] MEDS: LACTOBACILLUS ACIDOPHILUS TAB PO SCH ×2 (09:50→20:43)
[2017-12-16] MEDS: QUEtiapine FUMARATE 25 MG TAB PO SCH ×2 (09:50→12:00)
[2017-12-16] MEDS: HALOPERIDOL LACTATE ORAL CONC 10 MG/5 ML CUP PO SCH ×2 (09:51→20:43)
[2017-12-16] MEDS: ATORVASTATIN 10 MG TAB PO SCH (09:51)
[2017-12-16] MEDS: LISINOPRIL 5 MG TAB PO SCH ×2 (09:53→20:43)
[2017-12-16] MEDS: CARVEDILOL 3.125 MG TAB PO SCH ×2 (09:53→20:43)
--- NOTE | 2017-12-16 10:09 | HHI.PR ---
Subjective Remarks Follow-up for placement in C. difficile Patient less agitated today. She does try to follow commands. She still has expressive aphasia. She is able to move her left side. Patient had no bowel movement yesterday. Today she had 3 bowel movements so far. She nodded no when I asked her if she has any pain. Objective Vitals Vital Signs Date Time Temp Pulse Resp B/P (MAP) Pulse Ox O2 Delivery O2 Flow Rate FiO2 12/16/17 09:00 97.9 89 20 155/68 (97) 98 12/16/17 04:00 98.2 84 19 114/64 (81) 96 12/16/17 00:00 98.1 85 19 134/63 (86) 97 12/15/17 20:00 98.5 97 22 184/81 (115) 98 12/15/17 16:00 98.8 103 18 151/66 (94) 98 12/15/17 12:00 98.9 93 18 170/73 (105) 98 I/O 12/15/17 12/15/17 12/15/17 12/16/17 12/16/17 12/16/17 07:00 15:00 23:00 07:00 15:00 23:00 Intake Total 100 ml Balance 100 ml Intake Oral 100 ml # Voids 6 6 # Bowel Movements 0 3 Objective Remarks GENERAL: White female in no acute distress but is very agitated because she cannot express herself. CARDIOVASCULAR: Regular rate and rhythm without murmurs, gallops, or rubs. RESPIRATORY: Breath sounds equal bilaterally. No accessory muscle use. GASTROINTESTINAL: Abdomen soft, non-tender, nondistended. MUSCULOSKELETAL: No cyanosis, or edema. Right-sided weakness SKIN: right heel wound NEUROLOGIC: Right hemiparesis of upper and lower extremities moves left arm. Patient moves her left leg without any difficulty. Procedures none Medications and IVs Current Medications Levetriacetam 100 ml @ 400 mls/hr BOLUS ONCE IV Last administered on at 21:01; Start 10/25/17 at 20:30; Stop 10/25/17 at 20:44; Status DC Lorazepam (Ativan Inj) 1 mg Q5M PRN IV PUSH SEIZURE; Start 10/25/17 at 20:15; Stop 10/28/17 at 08:27; Status DC Sodium Chloride 1,000 ml @ 100 mls/hr Q10H IV Last administered on 10/27/17at 23 :00; Start 10/25/17 at 21:00; Stop 10/28/17 at 08:27; Status DC Sodium Chloride (NS Flush) 2 ml UNSCH PRN IV FLUSH FLUSH AFTER USING IV ACCESS ; Start 10/25/17 at 20:15; Stop 10/27/17 at 13:28; Status DC Sodium Chloride (NS Flush) 2 ml BID IV FLUSH Last administered on 10/27/17at 20: 20; Start 10/25/17 at 21:00; Stop 10/28/17 at 08:03; Status DC Ondansetron HCl (Zofran Inj) 4 mg Q6H PRN IVP NAUSEA OR VOMITING; Start at 20:15 Acetaminophen (Tylenol) 650 mg Q6H PRN PO FEVER/PAIN SCALE 1 TO 2 Last administered on 11/04/17at 17:50; Start 10/25/17 at 20:15 Acetaminophen/ Hydrocodone Bitart ([place] 5-325 Mg) 1 tab Q4H PRN PO PAIN SCALE 5 TO 10 Last administered on 12/11/17at 05:49; Start 10/25/17 at 20:15 Acetaminophen/ Hydrocodone Bitart ([place] 10-325 Mg) 1 tab Q4H PRN PO PAIN SCALE 6 TO 10 Last administered on 11/27/17at 23:04; Start 10/25/17 at 20:15; Stop 11/30/17 at 10:07; Status DC Senna/Docusate Sodium ([place]-Colace) 1 tab BID PO Last administered on at 23:13; Start 10/25/17 at 21:00 Magnesium Hydroxide (Milk Of Magnesia Liq) 30 ml Q12H PRN PO Mild constipation Last administered on 11/11/17at 09:36; Start 10/25/17 at 20:15 Sennosides (Senokot) 17.2 mg Q12H PRN PO Moderate constipation Last administered on 11/17/17at 10:02; Start 10/25/17 at 20:15 Bisacodyl (Dulcolax Supp) 10 mg DAILY PRN RECTAL SEVERE CONSITIPATION; Start at 20:15 Lactulose (Lactulose Liq) 30 ml DAILY PRN PO SEVERE CONSITIPATION Last administered on 10/31/17at 08:40; Start 10/25/17 at 20:15 Aspirin (Aspirin) 325 mg DAILY PO Last administered on 10/27/17at 09:33; Start at 09:00; Stop 10/28/17 at 08:00; Status DC Atorvastatin Calcium (Lipitor) 10 mg DAILY PO Last administered on 12/16/17at 09 :51; Start 10/26/17 at 09:00 Diazepam (Valium) 5 mg Q12HR PO Last administered on 12/15/17at 21:45; Start 10/25/17 at 21:00 Metoprolol Tartrate (Lopressor Inj) 5 mg ONCE ONCE IV PUSH Last administered on 10/25/17at 20:43; Start 10/25/17 at 20:30; Stop 10/25/17 at 20:31; Status DC Levetriacetam 100 ml @ 400 mls/hr Q12H IV Last administered on 10/26/17at 17:04 ; Start 10/26/17 at 16:00; Stop 10/27/17 at 07:33; Status DC Lorazepam (Ativan Inj) 1 mg Q6HR PRN IV PUSH SEIZURES; Start 10/26/17 at 15:00 Gadodiamide (Omniscan Pf Inj) 14 ml STK-MED ONCE IVCONTRAST Last administered on 10/26/17at 16:49; Start 10/26/17 at 16:49; Stop 10/26/17 at 16:50; Status DC Levetriacetam (Keppra) 500 mg Q12HR PO Last administered on 10/27/17at 20:40; Start 10/27/17 at 09:00; Stop 10/27/17 at 20:58; Status DC Clopidogrel Bisulfate (Plavix) 75 mg DAILY PO Last administered on 10/27/17at 13: 23; Start 10/27/17 at 13:00; Stop 10/27/17 at 20:57; Status DC Sodium Chloride (NS Flush) 2 ml UNSCH PRN IV FLUSH FLUSH AFTER USING IV ACCESS ; Start 10/27/17 at 13:00; Stop 10/28/17 at 08:03; Status DC Insulin Aspart (NovoLOG SUPPLEMENTAL SCALE) 1 ACHS SQ ; Start 10/27/17 at 17:00; Stop 10/28/17 at 08:03; Status DC Dextrose (D50w (Vial) Inj) 50 ml UNSCH PRN IV PUSH HYPOGLYCEMIA-SEE COMMENTS; Start 10/27/17 at 13:00; Stop 10/28/17 at 08:03; Status DC Glucagon (Glucagon Inj) 1 mg UNSCH PRN OTHER HYPOGLYCEMIA-SEE COMMENTS; Start 10/27/17 at 13:00; Stop 10/28/17 at 08:03; Status DC Heparin Sodium (Porcine) (Heparin Inj) 5,000 units Q12HR SQ Last administered on 10/27/17at 20:40; Start 10/27/17 at 21:00; Stop 10/27/17 at 21:00; Status DC Enalaprilat (Vasotec Inj) 1.25 mg Q8H PRN IV PUSH SBP>160, DBP>90 Last administered on 11/12/17at 17:53; Start 10/27/17 at 13:45 Iohexol (Omnipaque 350 Inj) 98 ml STK-MED ONCE IVCONTRAST Last administered on 10/27/17at 17:51; Start 10/27/17 at 17:51; Stop 10/27/17 at 17:54; Status DC Heparin Sodium/ Dextrose 250 ml @ 0 mls/hr TITRATE PRN IV Coagulation Management; Start 10/27/17 at 21:00; Stop 10/27/17 at 22:27; Status DC Sodium Chloride (NS Flush) 2 ml BID IV FLUSH Last administered on 12/13/17at 22: 32; Start 10/27/17 at 21:00 Sodium Chloride (NS Flush) 2 ml UNSCH PRN IV FLUSH FLUSH AFTER USING IV ACCESS ; Start 10/27/17 at 21:00 Insulin Aspart (NovoLOG SUPPLEMENTAL SCALE) 1 ACHS SQ ; Start 10/27/17 at 21:00; Stop 11/02/17 at 11:35; Status DC Dextrose (D50w (Vial) Inj) 50 ml UNSCH PRN IV PUSH HYPOGLYCEMIA-SEE COMMENTS; Start 10/27/17 at 21:00; Stop 11/02/17 at 11:35; Status DC Glucagon (Glucagon Inj) 1 mg UNSCH PRN OTHER HYPOGLYCEMIA-SEE COMMENTS; Start 10/27/17 at 21:00; Stop 11/02/17 at 11:35; Status DC Levetriacetam 500 mg/Sodium Chloride 105 ml @ 420 mls/hr Q6HR IV Last administered on 10/27/17at 21:00; Start 10/27/17 at 21:00; Stop 10/27/17 at 23:27; Status DC Heparin Sodium/ Dextrose 250 ml @ 7 mls/hr TITRATE PRN IV Coagulation Management Last administered on 11/02/17at 12:05; Start 10/27/17 at 22:30; Stop at 15:02; Status DC Levetriacetam 500 mg/Sodium Chloride 105 ml @ 420 mls/hr Q6H IV Last administered on 10/29/17at 11:03; Start 10/28/17 at 04:00; Stop 10/29/17 at 13:57; Status DC Aspirin (Aspirin Supp) 300 mg DAILY RECTAL Last administered on 11/03/17at 07:37 ; Start 10/28/17 at 09:00; Stop 11/03/17 at 15:12; Status DC Haloperidol Lactate (Haldol Inj) 2.5 mg NOW ONCE IM Last administered on at 08:18; Start 10/28/17 at 08:15; Stop 10/28/17 at 08:16; Status DC Haloperidol Lactate (Haldol Inj) 2.5 mg Q8H PRN IM AGITATION; Start 10/28/17 at 08:15; Stop 10/28/17 at 12:26; Status DC Morphine Sulfate (Morphine Inj) 1 mg Q4H PRN IV PAIN 1-5 IF NOT TOLERATING PO; Start 10/28/17 at 08:15; Stop 12/16/17 at 08:24; Status DC Morphine Sulfate (Morphine Inj) 2 mg Q4H PRN IV PAIN 6-10 IF NOT TOLERATING PO Last administered on 11/06/17at 17:48; Start 10/28/17 at 08:15; Stop 12/16/17 at 08:24; Status DC Potassium Chloride/Sodium Chloride 1,000 ml @ 50 mls/hr Q20H IV Last administered on 10/29/17at 16:50; Start 10/28/17 at 08:30; Stop 10/30/17 at 11:10; Status DC Quetiapine Fumarate (SEROquel) 25 mg BID@09,12 PO Last administered on at 08:40; Start 10/29/17 at 09:00; Stop 10/31/17 at 15:05; Status DC Haloperidol Lactate (Haldol Inj) 2 mg Q8H PRN IM severe agitation ; Start at 12:30; Stop 10/31/17 at 15:05; Status DC Warfarin Sodium (Coumadin) 5 mg DAILY@1600 PO Last administered on 11/02/17at 16 :23; Start 10/29/17 at 16:00; Stop 11/03/17 at 15:03; Status DC Patient Medication Teaching (Coumadin Booklet) 1 ONCE ONCE OTHER Last administered on 10/29/17at 16:00; Start 10/29/17 at 16:00; Stop 10/29/17 at 16:01; Status DC Levetriacetam (Keppra) 1,000 mg Q12HR PO Last administered on 11/27/17at 22:57; Start 10/29/17 at 21:00; Stop 11/28/17 at 23:02; Status DC Quetiapine Fumarate (SEROquel) 50 mg BID@09,12 PO Last administered on at 09:50; Start 11/01/17 at 09:00 Carvedilol (Coreg) 3.125 mg Q12HR PO Last administered on 12/16/17at 09:53; Start 10/31/17 at 21:00; Status Future hold Lisinopril (Prinivil) 2.5 mg DAILY PO Last administered on 11/07/17at 09:21; Start 11/01/17 at 09:00; Stop 11/08/17 at 09:07; Status DC Miscellaneous (Pill Splitter) 1 ea UNSCH PRN OTHER SEE LABEL COMMENTS; Start at 16:45 Olanzapine (ZyPREXA INJ) 10 mg Q12H PRN IM agitation Last administered on at 07:37; Start 11/01/17 at 13:15 Patient Medication Teaching (Coumadin Booklet) 1 ONCE ONCE OTHER Last administered on 11/02/17at 16:24; Start 11/02/17 at 16:00; Stop 11/02/17 at 16:01 ; Status DC Pharmacy Profile Note 0 ml @ 0 mls/hr UNSCH OTHER ; Start 11/02/17 at 08:45; Status Future hold Patient Medication Teaching (Coumadin Booklet) 1 ONCE ONCE OTHER ; Start at 16:00; Stop 11/02/17 at 16:01; Status Cancel Warfarin Sodium (Coumadin) 1 mg ONCE ONCE PO Last administered on 11/02/17at 16 :23; Start 11/02/17 at 16:00; Stop 11/02/17 at 16:01; Status DC Potassium Chloride/Sodium Chloride 1,000 ml @ 42 mls/hr [id number] IV Last administered on 11/07/17at 15:08; Start 11/03/17 at 14:00; Stop 11/08/17 at 09:07 ; Status DC Warfarin Sodium (Coumadin) 5 mg DAILY@1600 PO ; Start 11/04/17 at 16:00; Stop at 11:56; Status DC Albuterol Sulfate (Albuterol Neb) 0.63 mg Q4HR NEB PRN NEB sob; Start 11/04/17 at 09:00 Albuterol Sulfate (Albuterol Neb) 0.63 mg Q6HR NEB NEB Last administered on at 10:19; Start 11/04/17 at 10:00; Stop 11/08/17 at 09:59; Status DC Lactobacillus Acidophilus (Lactinex) 1 tab TID PO Last administered on at 09:33; Start 11/04/17 at 09:00; Stop 12/11/17 at 18:23; Status DC Sodium Chloride (NS Flush) 2 ml UNSCH PRN IV FLUSH FLUSH AFTER USING IV ACCESS ; Start 11/04/17 at 10:15; Stop 11/04/17 at 10:17; Status DC Sodium Chloride (NS Flush) 2 ml BID IV FLUSH ; Start 11/04/17 at 21:00; Stop at 21:00; Status DC Pharmacy Profile Note 0 ml @ 0 mls/hr UNSCH OTHER ; Start 11/04/17 at 10:15; Status Cancel Vancomycin HCl 1000 mg/Sodium Chloride 250 ml @ 250 mls/hr Q12H IV ; Start at 10:15; Stop 11/04/17 at 10:24; Status DC Piperacillin Sod/ Tazobactam Sod 100 ml @ 200 mls/hr Q6H IV Last administered on 11/04/17at 21:33; Start 11/04/17 at 16:00; Stop 11/05/17 at 00:16; Status DC Piperacillin Sod/ Tazobactam Sod 100 ml @ 200 mls/hr ONCE STAT IV Last administered on 11/04/17at 11:18; Start 11/04/17 at 10:08; Stop 11/04/17 at 10:37 ; Status DC Vancomycin HCl 1150 mg/Sodium Chloride 261.5 ml @ 250 mls/hr ONCE STAT IV ; Start 11/04/17 at 10:08; Stop 11/04/17 at 11:10; Status UNV Vancomycin HCl 1000 mg/Sodium Chloride 250 ml @ 250 mls/hr ONCE ONCE IV Last administered on 11/04/17at 11:47; Start 11/04/17 at 10:30; Stop 11/05/17 at 00:16 ; Status DC Vancomycin HCl 1000 mg/Sodium Chloride 250 ml @ 250 mls/hr Q24H IV ; Start at 12:00; Stop 11/04/17 at 12:19; Status DC Miscellaneous Information SPECIFIC LAB TO BE JOSE... ONCE ONCE .XX ; Start 11/07 at 11:45; Stop 11/07/17 at 11:46; Status Cancel Vancomycin HCl 1000 mg/Sodium Chloride 250 ml @ 250 mls/hr Q24H IV ; Start at 12:00; Stop 11/05/17 at 12:00; Status DC Metronidazole (Flagyl) 500 mg Q6HR PO ; Start 11/05/17 at 00:00; Status Cancel Metronidazole (Flagyl) 500 mg ONCE ONCE PO Last administered on 11/04/17at 21: 33; Start 11/04/17 at 20:00; Stop 11/04/17 at 20:01; Status DC Vancomycin HCl (VANCOMYCIN for oral use only) 500 mg Q6H PO Last administered on 11/18/17at 17:47; Start 11/05/17 at 00:00; Stop 11/18/17 at 23:55; Status DC Metronidazole 100 ml @ 100 mls/hr Q8H IV Last administered on 11/07/17at 17:38 ; Start 11/05/17 at 08:00; Stop 11/07/17 at 17:44; Status DC Potassium Chloride (KCl Powder) 40 meq ONCE ONCE PO Last administered on at 09:11; Start 11/06/17 at 09:00; Stop 11/06/17 at 09:06; Status DC Warfarin Sodium (Coumadin) 2.5 mg DAILY@1600 PO Last administered on 11/11/17at 17:32; Start 11/06/17 at 16:00; Stop 11/12/17 at 08:58; Status DC Lisinopril (Prinivil) 5 mg BID PO Last administered on 12/16/17at 09:53; Start 11/08/17 at 21:00 Warfarin Sodium (Coumadin) 2 mg ONCE ONCE PO Last administered on 11/09/17at 17 :07; Start 11/09/17 at 16:00; Stop 11/09/17 at 16:01; Status DC Warfarin Sodium (Coumadin) 2.5 mg DAILY@1600 PO Last administered on 11/14/17at 16:31; Start 11/13/17 at 16:00; Stop 11/15/17 at 10:38; Status DC Warfarin Sodium (Coumadin) 2.5 mg DAILY@1600 PO Last administered on 12/02/17at 11:01; Start 11/16/17 at 16:00; Stop 12/03/17 at 10:23; Status DC Warfarin Sodium (Coumadin) 1 mg ONCE ONCE PO ; Start 11/23/17 at 16:00; Stop 11/23/17 at 16:01; Status DC Warfarin Sodium (Coumadin) 1 mg ONCE ONCE PO Last administered on 11/25/17at 16: 59; Start 11/25/17 at 16:00; Stop 11/25/17 at 16:01; Status DC Warfarin Sodium (Coumadin) 1 mg ONCE ONCE PO Last administered on 11/26/17at 16: 44; Start 11/26/17 at 16:00; Stop 11/26/17 at 16:01; Status DC Clonidine (Catapres) 0.1 mg ONCE ONCE PO Last administered on 11/28/17at 00:20; Start 11/28/17 at 00:15; Stop 11/28/17 at 00:16; Status DC Levetriacetam (Keppra Liq) 1,000 mg Q12HR PO Last administered on 12/16/17at 09 :50; Start 11/29/17 at 09:00 Warfarin Sodium (Coumadin) 1 mg ONCE ONCE PO Last administered on 12/02/17at 15 :52; Start 12/02/17 at 16:00; Stop 12/02/17 at 16:01; Status DC Warfarin Sodium (Coumadin) 4 mg DAILY@1600 PO Last administered on 12/15/17at 12 :13; Start 12/03/17 at 16:00 Warfarin Sodium (Coumadin) 2 mg ONCE ONCE PO ; Start 12/05/17 at 16:00; Stop at 16:01; Status DC Enalaprilat (Vasotec Inj) 2.5 mg Q6H PRN IV PUSH SBP>160, DBP>90 Last administered on 12/13/17at 10:12; Start 12/07/17 at 11:15 Hydralazine HCl (Apresoline) 10 mg Q6HR PRN PO SBP>160, DBP>90; Start 12/07/17 at 11:15 Haloperidol (Haldol) 2 mg TID PRN PO AGITATION AND/OR HALLUCINATION; Start at 11:15; Stop 12/07/17 at 15:36; Status DC Haloperidol Lactate (Haldol Lactate Liq) 2 mg BID PO Last administered on at 09:51; Start 12/07/17 at 21:00 Lactobacillus Acidophilus (Lactinex) 1 tab Q12HR PO Last administered on at 09:50; Start 12/11/17 at 21:00 Metronidazole 100 ml @ 100 mls/hr Q8H IV Last administered on 12/14/17at 03:12 ; Start 12/11/17 at 20:00; Stop 12/14/17 at 12:48; Status DC Acetaminophen 65 ml @ 400 mls/hr ONCE ONCE IV Last administered on 12/11/17at 22:26; Start 12/11/17 at 16:45; Stop 12/11/17 at 18:21; Status DC Acetaminophen 100 ml @ 400 mls/hr Q8H PRN IV fever if not taking PO ; Start at 16:45 Sodium Chloride 1,000 ml @ 84 mls/hr [id number] IV Last administered on at 18:18; Start 12/11/17 at 17:00 Vancomycin HCl (Vancomycin 25 Mg/ml Liq) 250 mg QID PO Last administered on at 21:00; Start 12/12/17 at 18:00 A/P Problem List: (1) Encephalopathy ICD Code: G93.40 - Encephalopathy, unspecified (2) CVA (cerebral vascular accident) ICD Code: I63.9 - Cerebral infarction, unspecified (3) HTN (hypertension) ICD Code: I10 - Essential (primary) hypertension (4) Tobacco abuse ICD Code: Z72.0 - Tobacco use Assessment and Plan 67-year-old female with 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 - Continue Coumadin. Continue PT/OT. -PT/INR yesterday 1.2. pending today. pharmacist consulted and managing. Seizure - Continue Keppra. Seizure precautions Hypertension -BP controlled. continue with current regimen. C. difficile colitis (hyper virulent strain) - s/p Flagyl. Patient currently on vancomycin. Appreciate infectious disease recommendations. - Reported diarrhea Right heel wound. Consult wound care, appreciate recommendations. Special mattress ordered. Bipolar disorder, agitation - increase- refusing meds - Continue Seroquel. - seen by Psychiatry Cardiomyopathy - Continue beta evonne, JAYELN inhibitor. Right subacute humeral fracture- occurred 09/30- ER - never got to see an Ortho referral from [facility] -Orthopedic services saw patient, appreciate recommendations. -Nonoperative management, continue to keep position for healing. - NWB right UE - repeat XR in 2-3 weeks - PT - OP ff up with Ortho DVT prophylaxis - on Coumadin Discharge Planning Patient is noncompliant but part of her frustration seems like it may be due to her not be able to communicate with others. Pending placement. Skylar Hinkle MD Dec 16, 2017 10:09
[2017-12-16] MEDS: VANCOMYCIN 25 MG/ML SOLN 100 ML BOTTLE PO SCH ×4 (10:30→20:44)
--- NOTE | 2017-12-16 11:39 | RADRPT ---
EXAM DATE/TIME: 12/16/2017 11:10 [facility] COMPARISON: HUMERUS RIGHT (MIN 2VWS), December 02, 2017, 11:08. INDICATIONS : Fracture, fell MEDICAL HISTORY : Stroke. Hypertension diabetes SURGICAL HISTORY : None. ENCOUNTER: Initial ACUITY: 4 - 6 days PAIN SCORE: 9/10 LOCATION: Right shoulder FINDINGS: 4 views of the right shoulder demonstrate an abnormal appearance of the proximal humerus with subacut e appearing fracture through the surgical neck region and possibly involving the greater tuberosity. The configuration is stable compared to the prior study from 14 days ago. The bones remain underminer alized. There is no glenohumeral joint dislocation. 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 Visualized right chest demonstrates no acute finding. CONCLUSION: Stable appearance to the subacute right proximal humeral neck fracture. Otherwise, no significant george nge is appreciated compared to the study from 2 weeks ago. George Jensen MD on December 16, 2017 at 11:36 Board Certified Radiologist. This report was verified electronically.
[2017-12-16 12:00] VITALS: BP 135/98; PULSE 86; RESP 16; TEMP 97.1; O2SAT 96
[2017-12-16] MEDS: WARFARIN SOD 4 MG TAB PO SCH (13:57)
[2017-12-16 16:00] VITALS: BP 136/72; PULSE 82; RESP 20; TEMP 97.7; O2SAT 96
--- NOTE | 2017-12-16 17:22 | HHI.HCPN ---
Reason for visit a. To assist with evaluation and management of symptoms including:Pain, physical deconditioning b. To assist medical decision maker(s) with: better understanding of current medical conditions; weighing benefits/burdens of medical treatment options; making medical treatment decisions. Subjective/Interval History Patient seen and examined in her room. Patient is calm, alert and denies pain at this time. Patient has expressive aphasia. She sometimes communicates with gestures. She is able to say her name. Vital signs stable. Per bedside nurse patient did take her medications today, per nurse sometimes she takes them mixed in juice or ice-cream. Patient tends to get frustrated because of failure to express herself due to her aphasia. PT and OT following with patient. Patient was sitting up in recliner chair earlier on today and she tolerated it well. Interval Laboratory and diagnostic tests * 11/18/17=WBC 8.9, Hgb 13.9, Hct 33.9, Plt count 256 * 11/28/17=Potassium 3.7, BUN/Creat 18/0.79, Total protein 6.9, albumin 3.1. * 12/11/17= Chest X ray revealed clear lungs * 12/16/17=Shoulder Xray- revealed stable appearance to the subacute Right proximal humerus fracture. No changes. Per Case management notes , patient`s sister is trying to apply for guardianship so they can legally access patient`s funds so that they can assist with patient`s placement at [facility]. Case discussed with bedside RN . Family/friend interactions No family at bedside. . Advance Directives Living Will: Never completed Health Care Surrogate: Never completed Durable Power of Licensed Staff Mft: Never completed Advance Directive Specifics Health Care Surrogate(s): Health Care Proxy- SonRaul Montero- [phone] . Objective Vital Signs Date Time Temp Pulse Resp B/P (MAP) Pulse Ox O2 Delivery O2 Flow Rate FiO2 12/16/17 16:00 97.7 82 20 136/72 (93) 96 12/16/17 12:00 97.1 86 16 135/98 (110) 96 12/16/17 09:00 97.9 89 20 155/68 (97) 98 12/16/17 04:00 98.2 84 19 114/64 (81) 96 12/16/17 00:00 98.1 85 19 134/63 (86) 97 12/15/17 20:00 98.5 97 22 184/81 (115) 98 Intake & Output 12/16/17 12/16/17 07:00 19:00 Intake Total 560 ml Balance 560 ml Intake Oral 560 ml # Voids 3 # Bowel Movements 0 Physical Exam CONSTITUTIONAL/GENERAL: This is an adequately nourished patient, in no apparent distress. TUBES/LINES/DRAINS: PIV SKIN: No jaundice, rashes, or lesions. Ecchymoses on upper extremities. No wounds seen anteriorly. Skin temperature appropriate. Not diaphoretic. HEAD: Atraumatic. Normocephalic. EYES: Pupils equal and round and reactive. Extraocular motions intact. No scleral icterus. No injection or drainage. Fundi not examined. ENT: Hearing grossly normal. Nose without bleeding or purulent drainage. Moist oral mucosa. NECK: Trachea midline. Supple, nontender. CARDIOVASCULAR: Regular rate and rhythm without murmurs, gallops, or rubs. No JVD. Peripheral pulses symmetric. RESPIRATORY/CHEST: Symmetric, unlabored respirations. Clear to auscultation. Breath sounds equal bilaterally. No wheezes, rales, or rhonchi. GASTROINTESTINAL: Abdomen soft, non-tender, nondistended. No guarding. Bowel sounds present. GENITOURINARY: Without palpable bladder distension. MUSCULOSKELETAL: Extremities without clubbing, cyanosis, or edema. No joint tenderness or effusion noted. No calf tenderness. No mottling or clubbing. NEUROLOGICAL:Awake, alert with expressive aphasia. Follows simple commands with LUE and LLE. Right side is flaccid PSYCHIATRIC:Patient is awake and calm watching television. No obvious anxiety/ depression. no apparent hallucinations or other psychotic thought process. . Diagnostic Tests Laboratory Laboratory Tests Test 12/14/17 09:15 12/15/17 19:26 Prothrombin Time 11.6 SEC (9.8-11.6) 11.7 SEC (9.8-11.6) Prothromb Time International Ratio 1.1 RATIO 1.2 RATIO Imaging Last Impressions Chest X-Ray 12/11/17 0000 Signed Impressions: Service Date/Time: Monday, December 11, 2017 17:02 - CONCLUSION: The lungs are clear. Lionel Wood MD Humerus X-Ray 12/02/17 0000 Signed Impressions: Service Date/Time: Saturday, December 02, 2017 11:08 - CONCLUSION: 1. Fracture through the proximal humerus. There is periosteal bone formation suggesting healing. Nikolas Stewart MD Neck CTA 10/27/17 0000 Signed Impressions: Service Date/Time: Friday, October 27, 2017 17:42 - CONCLUSION: 1. Occluded left internal carotid artery 2. Mild narrowing at the origin of the right internal carotid artery measuring 30%%. 3. Patent vertebral arteries with good flow. Price Cee MD Head CTA 10/27/17 0000 Signed Impressions: Service Date/Time: Friday, October 27, 2017 17:42 - CONCLUSION: 1. Occluded intracranial segment of the left internal carotid artery. 2. Very scant flow in the left middle cerebral artery distribution with proximal MCA occlusion. 3. Evolving large left MCA infarct. Price Cee MD Head CT 10/27/17 0000 Signed Impressions: Service Date/Time: Friday, October 27, 2017 17:34 - CONCLUSION: 1. No evidence of acute right-sided infarction. Cystic encephalomalacia involving the left middle cerebral artery distribution unchanged 2. Pansinusitis Soren Rose MD Carotid Artery Ultrasound 10/27/17 0000 Signed Impressions: Service Date/Time: Friday, October 27, 2017 16:16 - CONCLUSION: 1. Findings of left carotid occlusion. CT angiography of the carotid arteries the brain is recommended for further evaluation Soren Rose MD Brain MRI 10/26/17 0000 Signed Impressions: Service Date/Time: Thursday, October 26, 2017 16:34 - CONCLUSION: Cystic encephalomalacia involving large left middle cerebral artery ischemic infarction. There is a small focus of restricted diffusion in the posterior left frontal region without hemorrhage characteristic of extension of the infarct. Pansinusitis Soren Rose MD Radius/Ulna X-Ray 10/25/17 0000 Signed Impressions: Service Date/Time: Wednesday, October 25, 2017 20:03 - CONCLUSION: 1. No acute fracture or dislocation. No bony destructive changes. Carlton Early MD Assessment and Plan Disease Oriented Problem List: (1) CVA (cerebral vascular accident) (2) HTN (hypertension) (3) Encephalopathy (4) Tobacco abuse Symptom Scale: (1) Pain 0-10 Scale: Unable to quantify Comment: Pain to RUE. Humerus X ray on 12/02/17 revealed Fracture through the proximal humerus. Periosteal bone formation suggesting healing. . (2) Physical deconditioning 0-10 Scale: Unable to quantify Comment: Progressive. . Pertinent Non-Medical Issues Psychosocial:Patient was born in [facility]. She is . Patient graduated from college and is a bachelor's degree in education. 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 Spiritual:Patient is Religion Legal: Patient does not have advanced directives. Ethical issues impacting care: None identified at this time. . Important Contacts Son- Donald, Raul- [phone] Sister Harvey Fernandez [phone] Sister Michelle Raza [phone] . Prognosis Ms Rodríguez is a 67 years old female with a past medical history CVA with residual aphasia, right hemiplegia and left hemiparesis, hypertension, Diabetes Mellitus- Type 2, anxiety disorder, bipolar disorder, osteoarthritis and insomnia. Patient was admitted from 05/20/17-05/29/17 and treated for an acute left frontoparietal CVA .She was discharged to a SNF [facility]. Patient was transported by EMS to the ER on 10/25/17 with a complaint of altered mental status. Patient was found slumped over after she had wheeled herself outside to smoke, and ecchymosis to right humerus and forearm. Clinical course complicated with evolving left hemisphere CVA, agitation, and delirium. Given ongoing comorbidities, patient remains at high risk for further complications, deterioration and decline. . Code Status: Full Code Plan PLAN: Legal decision maker: Patient has a history of stroke with expressive aphasia , agitation and altered mental status during this hospitalization. Patient is not able to participate in making her own medical decisions. Patient has an adult son who according to [place] Statute will serve as patient`s Health Care Proxy. Goals: Aggressive CODE STATUS: Full Code SYMPTOMS: * Pain : to RUE. Humerus X ray on 12/02/17 revealed Fracture through the proximal humerus. Periosteal bone formation suggesting healing. Patient has Hydrocodone/acetaminophen 5/325 q 4 hrs prn pain. * Agitation: Multifactorial. History of bipolar disorder and CVA with expressive aphasia. Psychiatry consulted. On Seroquel 50mg BID. Seems to be compounded with inability to communicate her needs. No recommendations at this time. Patient is calm. Resolved. * Physical deconditioning: Progressive. Patient has a history CVA with Residual Aphasia,Right Hemiplegia and Left Hemiparesis. During her admission in January 2017 patient weight 79.7kgs and on October 28, 2017 patient weighed 59.9kgs. Physical therapy consulted. Occupational and physical therapy following. Patient's participation is limited due to expressive aphasia, inability to comprehend complex commands, right hemiplegia and left hemiparesis. No recommendations at this time. Palliative care will continue to follow the patient during hospital course as condition evolves, to assist patient/decision-maker with understanding of their medical conditions, weighing benefits/burdens of treatment options, for clarification of goals of treatment. Additionally will assist with any symptoms of palliative concern Attestation To help prompt me to consider important information that might be impacting today's encounter and assessment, information from prior notes written by myself or my colleagues may have been "brought forward" into today's note. My signature on this note, however, is an attestation that I personally performed the exam, history, and/or decision-making noted today, and, unless otherwise indicated, the interactions with patient, family, and staff as well as the review of records all occurred today. I also attest that the listed assessment and stated plan reflect my best clinical judgment today based on the combination of historical information, prior notes, and today's exam/ interactions. When time spent is documented, it refers only to time spent today by the signer, or if indicated, combined time spent today by collaborating physician/nurse practitioner. Susan Dawson Dec 16, 2017 17:22
[2017-12-16] MEDS: ACETAMINOPHEN/HYDROcodone 325 MG/5 MG TAB PO PRN (20:41)
[2017-12-16 21:23] VITALS: BP 157/83; PULSE 92; RESP 18; TEMP 97.6; O2SAT 95
[2017-12-17 00:56] VITALS: BP 138/63; PULSE 94; RESP 18; TEMP 98.4; O2SAT 95
[2017-12-17] MEDS: SODIUM CHLOR 0.9% 1000 ML INJ 1,000 ML IV SCH ×3 (04:05→21:02)
[2017-12-17 05:36] VITALS: BP 139/65; PULSE 86; RESP 18; TEMP 98.2; O2SAT 99
[2017-12-17] MEDS: SODIUM CHLORIDE 0.9% FLUSH 10 ML FLUSH IV FLUSH SCH ×2 (06:57→20:34)
[2017-12-17] MEDS: DIAZEPAM 5 MG TAB PO SCH (06:57)
[2017-12-17] MEDS: DOCUSATE SODIUM 50 MG/SENNA 8.6 MG TAB PO SCH ×2 (06:57→20:38)
--- NOTE | 2017-12-17 07:22 | PD.ORT.PN ---
Subjective Subjective Remarks Patient is stable with no new complaints Objective Vitals Vital Signs Date Time Temp Pulse Resp B/P (MAP) Pulse Ox O2 Delivery O2 Flow Rate FiO2 12/17/17 05:36 98.2 86 18 139/65 (89) 99 12/17/17 00:56 98.4 94 18 138/63 (88) 95 12/16/17 21:23 97.6 92 18 157/83 (107) 95 12/16/17 16:00 97.7 82 20 136/72 (93) 96 12/16/17 12:00 97.1 86 16 135/98 (110) 96 12/16/17 09:00 97.9 89 20 155/68 (97) 98 I/O 12/16/17 12/16/17 12/16/17 12/17/17 12/17/17 12/17/17 07:00 15:00 23:00 07:00 15:00 23:00 Intake Total 560 ml Balance 560 ml Intake Oral 560 ml # Voids 3 # Bowel Movements 0 Objective Remarks Right upper extremity mild tenderness to palpation of proximal humerus. Good capillary refills in distal pulses. Week movement of hands Assessment & Plan Assessment and Plan Right proximal humerus fracture (09/30/17) continue nonoperative treatment. nonweightbearing right upper extremity Occupational therapy for passive range of motion of shoulder Discontinue sling Avi Thomas Jr. Dec 17, 2017 07:22
[2017-12-17] MEDS: levETIRAcetam 500 MG/5 ML UDC PO SCH ×2 (07:43→20:37)
[2017-12-17] MEDS: HALOPERIDOL LACTATE ORAL CONC 10 MG/5 ML CUP PO SCH ×2 (07:43→20:37)
[2017-12-17] MEDS: ATORVASTATIN 10 MG TAB PO SCH (07:44)
[2017-12-17] MEDS: CARVEDILOL 3.125 MG TAB PO SCH ×2 (07:44→20:37)
[2017-12-17] MEDS: LACTOBACILLUS ACIDOPHILUS TAB PO SCH ×2 (07:44→20:37)
[2017-12-17] MEDS: LISINOPRIL 5 MG TAB PO SCH ×2 (07:45→20:37)
[2017-12-17] MEDS: QUEtiapine FUMARATE 25 MG TAB PO SCH ×2 (07:45→11:46)
[2017-12-17] MEDS: ACETAMINOPHEN/HYDROcodone 325 MG/5 MG TAB PO PRN ×3 (07:45→20:33)
[2017-12-17] MEDS: VANCOMYCIN 25 MG/ML SOLN 100 ML BOTTLE PO SCH ×4 (07:45→20:38)
[2017-12-17 08:13] LABS: INTERNATIONAL NORMALIZED RATIO 1.2 RATIO
[2017-12-17 08:36] VITALS: BP 137/61; PULSE 80; RESP 18; TEMP 98.6; O2SAT 97
--- NOTE | 2017-12-17 11:05 | HHI.PR ---
Subjective Remarks f/u for placement and CVA patient was no agitated today. discussed case with nurse no acute issues. nurse ask to reviewed agitation medication because she thought patient was getting to many sedative medication. no acute events. 3 BM yesterday and zero today. Objective Vitals Vital Signs Date Time Temp Pulse Resp B/P (MAP) Pulse Ox O2 Delivery O2 Flow Rate FiO2 12/17/17 08:36 98.6 80 18 137/61 (86) 97 12/17/17 05:36 98.2 86 18 139/65 (89) 99 12/17/17 00:56 98.4 94 18 138/63 (88) 95 12/16/17 21:23 97.6 92 18 157/83 (107) 95 12/16/17 16:00 97.7 82 20 136/72 (93) 96 12/16/17 12:00 97.1 86 16 135/98 (110) 96 I/O 12/16/17 12/16/17 12/16/17 12/17/17 12/17/17 12/17/17 07:00 15:00 23:00 07:00 15:00 23:00 Intake Total 560 ml Balance 560 ml Intake Oral 560 ml # Voids 3 # Bowel Movements 0 Objective Remarks GENERAL: White female in no acute distress but is very agitated because she cannot express herself. CARDIOVASCULAR: Regular rate and rhythm without murmurs, gallops, or rubs. RESPIRATORY: Breath sounds equal bilaterally. No accessory muscle use. GASTROINTESTINAL: Abdomen soft, non-tender, nondistended. MUSCULOSKELETAL: No cyanosis, or edema. Right-sided weakness SKIN: right heel wound NEUROLOGIC: Right hemiparesis of upper and lower extremities moves left arm. Patient moves her left leg without any difficulty. Procedures none Medications and IVs Current Medications Levetriacetam 100 ml @ 400 mls/hr BOLUS ONCE IV Last administered on at 21:01; Start 10/25/17 at 20:30; Stop 10/25/17 at 20:44; Status DC Lorazepam (Ativan Inj) 1 mg Q5M PRN IV PUSH SEIZURE; Start 10/25/17 at 20:15; Stop 10/28/17 at 08:27; Status DC Sodium Chloride 1,000 ml @ 100 mls/hr Q10H IV Last administered on 10/27/17at 23 :00; Start 10/25/17 at 21:00; Stop 10/28/17 at 08:27; Status DC Sodium Chloride (NS Flush) 2 ml UNSCH PRN IV FLUSH FLUSH AFTER USING IV ACCESS ; Start 10/25/17 at 20:15; Stop 10/27/17 at 13:28; Status DC Sodium Chloride (NS Flush) 2 ml BID IV FLUSH Last administered on 10/27/17at 20: 20; Start 10/25/17 at 21:00; Stop 10/28/17 at 08:03; Status DC Ondansetron HCl (Zofran Inj) 4 mg Q6H PRN IVP NAUSEA OR VOMITING; Start at 20:15 Acetaminophen (Tylenol) 650 mg Q6H PRN PO FEVER/PAIN SCALE 1 TO 2 Last administered on 11/04/17at 17:50; Start 10/25/17 at 20:15 Acetaminophen/ Hydrocodone Bitart (Mchenry 5-325 Mg) 1 tab Q4H PRN PO PAIN SCALE 5 TO 10 Last administered on 12/17/17at 07:45; Start 10/25/17 at 20:15 Acetaminophen/ Hydrocodone Bitart (Mchenry 10-325 Mg) 1 tab Q4H PRN PO PAIN SCALE 6 TO 10 Last administered on 11/27/17at 23:04; Start 10/25/17 at 20:15; Stop 11/30/17 at 10:07; Status DC Senna/Docusate Sodium (Aleah-Colace) 1 tab BID PO Last administered on at 23:13; Start 10/25/17 at 21:00 Magnesium Hydroxide (Milk Of Magnesia Liq) 30 ml Q12H PRN PO Mild constipation Last administered on 11/11/17at 09:36; Start 10/25/17 at 20:15 Sennosides (Senokot) 17.2 mg Q12H PRN PO Moderate constipation Last administered on 11/17/17at 10:02; Start 10/25/17 at 20:15 Bisacodyl (Dulcolax Supp) 10 mg DAILY PRN RECTAL SEVERE CONSITIPATION; Start at 20:15 Lactulose (Lactulose Liq) 30 ml DAILY PRN PO SEVERE CONSITIPATION Last administered on 10/31/17at 08:40; Start 10/25/17 at 20:15 Aspirin (Aspirin) 325 mg DAILY PO Last administered on 10/27/17at 09:33; Start at 09:00; Stop 10/28/17 at 08:00; Status DC Atorvastatin Calcium (Lipitor) 10 mg DAILY PO Last administered on 12/17/17at 07 :44; Start 10/26/17 at 09:00 Diazepam (Valium) 5 mg Q12HR PO Last administered on 12/16/17at 20:43; Start 10/25/17 at 21:00 Metoprolol Tartrate (Lopressor Inj) 5 mg ONCE ONCE IV PUSH Last administered on 10/25/17at 20:43; Start 10/25/17 at 20:30; Stop 10/25/17 at 20:31; Status DC Levetriacetam 100 ml @ 400 mls/hr Q12H IV Last administered on 10/26/17at 17:04 ; Start 10/26/17 at 16:00; Stop 10/27/17 at 07:33; Status DC Lorazepam (Ativan Inj) 1 mg Q6HR PRN IV PUSH SEIZURES; Start 10/26/17 at 15:00 Gadodiamide (Omniscan Pf Inj) 14 ml STK-MED ONCE IVCONTRAST Last administered on 10/26/17at 16:49; Start 10/26/17 at 16:49; Stop 10/26/17 at 16:50; Status DC Levetriacetam (Keppra) 500 mg Q12HR PO Last administered on 10/27/17at 20:40; Start 10/27/17 at 09:00; Stop 10/27/17 at 20:58; Status DC Clopidogrel Bisulfate (Plavix) 75 mg DAILY PO Last administered on 10/27/17at 13: 23; Start 10/27/17 at 13:00; Stop 10/27/17 at 20:57; Status DC Sodium Chloride (NS Flush) 2 ml UNSCH PRN IV FLUSH FLUSH AFTER USING IV ACCESS ; Start 10/27/17 at 13:00; Stop 10/28/17 at 08:03; Status DC Insulin Aspart (NovoLOG SUPPLEMENTAL SCALE) 1 ACHS SQ ; Start 10/27/17 at 17:00; Stop 10/28/17 at 08:03; Status DC Dextrose (D50w (Vial) Inj) 50 ml UNSCH PRN IV PUSH HYPOGLYCEMIA-SEE COMMENTS; Start 10/27/17 at 13:00; Stop 10/28/17 at 08:03; Status DC Glucagon (Glucagon Inj) 1 mg UNSCH PRN OTHER HYPOGLYCEMIA-SEE COMMENTS; Start 10/27/17 at 13:00; Stop 10/28/17 at 08:03; Status DC Heparin Sodium (Porcine) (Heparin Inj) 5,000 units Q12HR SQ Last administered on 10/27/17at 20:40; Start 10/27/17 at 21:00; Stop 10/27/17 at 21:00; Status DC Enalaprilat (Vasotec Inj) 1.25 mg Q8H PRN IV PUSH SBP>160, DBP>90 Last administered on 11/12/17at 17:53; Start 10/27/17 at 13:45 Iohexol (Omnipaque 350 Inj) 98 ml STK-MED ONCE IVCONTRAST Last administered on 10/27/17at 17:51; Start 10/27/17 at 17:51; Stop 10/27/17 at 17:54; Status DC Heparin Sodium/ Dextrose 250 ml @ 0 mls/hr TITRATE PRN IV Coagulation Management; Start 10/27/17 at 21:00; Stop 10/27/17 at 22:27; Status DC Sodium Chloride (NS Flush) 2 ml BID IV FLUSH Last administered on 12/16/17at 20: 44; Start 10/27/17 at 21:00 Sodium Chloride (NS Flush) 2 ml UNSCH PRN IV FLUSH FLUSH AFTER USING IV ACCESS ; Start 10/27/17 at 21:00 Insulin Aspart (NovoLOG SUPPLEMENTAL SCALE) 1 ACHS SQ ; Start 10/27/17 at 21:00; Stop 11/02/17 at 11:35; Status DC Dextrose (D50w (Vial) Inj) 50 ml UNSCH PRN IV PUSH HYPOGLYCEMIA-SEE COMMENTS; Start 10/27/17 at 21:00; Stop 11/02/17 at 11:35; Status DC Glucagon (Glucagon Inj) 1 mg UNSCH PRN OTHER HYPOGLYCEMIA-SEE COMMENTS; Start 10/27/17 at 21:00; Stop 11/02/17 at 11:35; Status DC Levetriacetam 500 mg/Sodium Chloride 105 ml @ 420 mls/hr Q6HR IV Last administered on 10/27/17at 21:00; Start 10/27/17 at 21:00; Stop 10/27/17 at 23:27; Status DC Heparin Sodium/ Dextrose 250 ml @ 7 mls/hr TITRATE PRN IV Coagulation Management Last administered on 11/02/17at 12:05; Start 10/27/17 at 22:30; Stop at 15:02; Status DC Levetriacetam 500 mg/Sodium Chloride 105 ml @ 420 mls/hr Q6H IV Last administered on 10/29/17at 11:03; Start 10/28/17 at 04:00; Stop 10/29/17 at 13:57; Status DC Aspirin (Aspirin Supp) 300 mg DAILY RECTAL Last administered on 11/03/17at 07:37 ; Start 10/28/17 at 09:00; Stop 11/03/17 at 15:12; Status DC Haloperidol Lactate (Haldol Inj) 2.5 mg NOW ONCE IM Last administered on at 08:18; Start 10/28/17 at 08:15; Stop 10/28/17 at 08:16; Status DC Haloperidol Lactate (Haldol Inj) 2.5 mg Q8H PRN IM AGITATION; Start 10/28/17 at 08:15; Stop 10/28/17 at 12:26; Status DC Morphine Sulfate (Morphine Inj) 1 mg Q4H PRN IV PAIN 1-5 IF NOT TOLERATING PO; Start 10/28/17 at 08:15; Stop 12/16/17 at 08:24; Status DC Morphine Sulfate (Morphine Inj) 2 mg Q4H PRN IV PAIN 6-10 IF NOT TOLERATING PO Last administered on 11/06/17at 17:48; Start 10/28/17 at 08:15; Stop 12/16/17 at 08:24; Status DC Potassium Chloride/Sodium Chloride 1,000 ml @ 50 mls/hr Q20H IV Last administered on 10/29/17at 16:50; Start 10/28/17 at 08:30; Stop 10/30/17 at 11:10; Status DC Quetiapine Fumarate (SEROquel) 25 mg BID@09,12 PO Last administered on at 08:40; Start 10/29/17 at 09:00; Stop 10/31/17 at 15:05; Status DC Haloperidol Lactate (Haldol Inj) 2 mg Q8H PRN IM severe agitation ; Start at 12:30; Stop 10/31/17 at 15:05; Status DC Warfarin Sodium (Coumadin) 5 mg DAILY@1600 PO Last administered on 11/02/17at 16 :23; Start 10/29/17 at 16:00; Stop 11/03/17 at 15:03; Status DC Patient Medication Teaching (Coumadin Booklet) 1 ONCE ONCE OTHER Last administered on 10/29/17at 16:00; Start 10/29/17 at 16:00; Stop 10/29/17 at 16:01; Status DC Levetriacetam (Keppra) 1,000 mg Q12HR PO Last administered on 11/27/17at 22:57; Start 10/29/17 at 21:00; Stop 11/28/17 at 23:02; Status DC Quetiapine Fumarate (SEROquel) 50 mg BID@09,12 PO Last administered on at 07:45; Start 11/01/17 at 09:00 Carvedilol (Coreg) 3.125 mg Q12HR PO Last administered on 12/17/17at 07:44; Start 10/31/17 at 21:00; Status Future hold Lisinopril (Prinivil) 2.5 mg DAILY PO Last administered on 11/07/17at 09:21; Start 11/01/17 at 09:00; Stop 11/08/17 at 09:07; Status DC Miscellaneous (Pill Splitter) 1 ea UNSCH PRN OTHER SEE LABEL COMMENTS; Start at 16:45 Olanzapine (ZyPREXA INJ) 10 mg Q12H PRN IM agitation Last administered on at 07:37; Start 11/01/17 at 13:15 Patient Medication Teaching (Coumadin Booklet) 1 ONCE ONCE OTHER Last administered on 11/02/17at 16:24; Start 11/02/17 at 16:00; Stop 11/02/17 at 16:01 ; Status DC Pharmacy Profile Note 0 ml @ 0 mls/hr UNSCH OTHER ; Start 11/02/17 at 08:45; Status Future hold Patient Medication Teaching (Coumadin Booklet) 1 ONCE ONCE OTHER ; Start at 16:00; Stop 11/02/17 at 16:01; Status Cancel Warfarin Sodium (Coumadin) 1 mg ONCE ONCE PO Last administered on 11/02/17at 16 :23; Start 11/02/17 at 16:00; Stop 11/02/17 at 16:01; Status DC Potassium Chloride/Sodium Chloride 1,000 ml @ 42 mls/hr [id number] IV Last administered on 11/07/17at 15:08; Start 11/03/17 at 14:00; Stop 11/08/17 at 09:07 ; Status DC Warfarin Sodium (Coumadin) 5 mg DAILY@1600 PO ; Start 11/04/17 at 16:00; Stop at 11:56; Status DC Albuterol Sulfate (Albuterol Neb) 0.63 mg Q4HR NEB PRN NEB sob; Start 11/04/17 at 09:00 Albuterol Sulfate (Albuterol Neb) 0.63 mg Q6HR NEB NEB Last administered on at 10:19; Start 11/04/17 at 10:00; Stop 11/08/17 at 09:59; Status DC Lactobacillus Acidophilus (Lactinex) 1 tab TID PO Last administered on at 09:33; Start 11/04/17 at 09:00; Stop 12/11/17 at 18:23; Status DC Sodium Chloride (NS Flush) 2 ml UNSCH PRN IV FLUSH FLUSH AFTER USING IV ACCESS ; Start 11/04/17 at 10:15; Stop 11/04/17 at 10:17; Status DC Sodium Chloride (NS Flush) 2 ml BID IV FLUSH ; Start 11/04/17 at 21:00; Stop at 21:00; Status DC Pharmacy Profile Note 0 ml @ 0 mls/hr UNSCH OTHER ; Start 11/04/17 at 10:15; Status Cancel Vancomycin HCl 1000 mg/Sodium Chloride 250 ml @ 250 mls/hr Q12H IV ; Start at 10:15; Stop 11/04/17 at 10:24; Status DC Piperacillin Sod/ Tazobactam Sod 100 ml @ 200 mls/hr Q6H IV Last administered on 11/04/17at 21:33; Start 11/04/17 at 16:00; Stop 11/05/17 at 00:16; Status DC Piperacillin Sod/ Tazobactam Sod 100 ml @ 200 mls/hr ONCE STAT IV Last administered on 11/04/17at 11:18; Start 11/04/17 at 10:08; Stop 11/04/17 at 10:37 ; Status DC Vancomycin HCl 1150 mg/Sodium Chloride 261.5 ml @ 250 mls/hr ONCE STAT IV ; Start 11/04/17 at 10:08; Stop 11/04/17 at 11:10; Status UNV Vancomycin HCl 1000 mg/Sodium Chloride 250 ml @ 250 mls/hr ONCE ONCE IV Last administered on 11/04/17at 11:47; Start 11/04/17 at 10:30; Stop 11/05/17 at 00:16 ; Status DC Vancomycin HCl 1000 mg/Sodium Chloride 250 ml @ 250 mls/hr Q24H IV ; Start at 12:00; Stop 11/04/17 at 12:19; Status DC Miscellaneous Information SPECIFIC LAB TO BE JOSE... ONCE ONCE .XX ; Start 11/07 at 11:45; Stop 11/07/17 at 11:46; Status Cancel Vancomycin HCl 1000 mg/Sodium Chloride 250 ml @ 250 mls/hr Q24H IV ; Start at 12:00; Stop 11/05/17 at 12:00; Status DC Metronidazole (Flagyl) 500 mg Q6HR PO ; Start 11/05/17 at 00:00; Status Cancel Metronidazole (Flagyl) 500 mg ONCE ONCE PO Last administered on 11/04/17at 21: 33; Start 11/04/17 at 20:00; Stop 11/04/17 at 20:01; Status DC Vancomycin HCl (VANCOMYCIN for oral use only) 500 mg Q6H PO Last administered on 11/18/17at 17:47; Start 11/05/17 at 00:00; Stop 11/18/17 at 23:55; Status DC Metronidazole 100 ml @ 100 mls/hr Q8H IV Last administered on 11/07/17at 17:38 ; Start 11/05/17 at 08:00; Stop 11/07/17 at 17:44; Status DC Potassium Chloride (KCl Powder) 40 meq ONCE ONCE PO Last administered on at 09:11; Start 11/06/17 at 09:00; Stop 11/06/17 at 09:06; Status DC Warfarin Sodium (Coumadin) 2.5 mg DAILY@1600 PO Last administered on 11/11/17at 17:32; Start 11/06/17 at 16:00; Stop 11/12/17 at 08:58; Status DC Lisinopril (Prinivil) 5 mg BID PO Last administered on 12/17/17at 07:45; Start 11/08/17 at 21:00 Warfarin Sodium (Coumadin) 2 mg ONCE ONCE PO Last administered on 11/09/17at 17 :07; Start 11/09/17 at 16:00; Stop 11/09/17 at 16:01; Status DC Warfarin Sodium (Coumadin) 2.5 mg DAILY@1600 PO Last administered on 11/14/17at 16:31; Start 11/13/17 at 16:00; Stop 11/15/17 at 10:38; Status DC Warfarin Sodium (Coumadin) 2.5 mg DAILY@1600 PO Last administered on 12/02/17at 11:01; Start 11/16/17 at 16:00; Stop 12/03/17 at 10:23; Status DC Warfarin Sodium (Coumadin) 1 mg ONCE ONCE PO ; Start 11/23/17 at 16:00; Stop 11/23/17 at 16:01; Status DC Warfarin Sodium (Coumadin) 1 mg ONCE ONCE PO Last administered on 11/25/17at 16: 59; Start 11/25/17 at 16:00; Stop 11/25/17 at 16:01; Status DC Warfarin Sodium (Coumadin) 1 mg ONCE ONCE PO Last administered on 11/26/17at 16: 44; Start 11/26/17 at 16:00; Stop 11/26/17 at 16:01; Status DC Clonidine (Catapres) 0.1 mg ONCE ONCE PO Last administered on 11/28/17at 00:20; Start 11/28/17 at 00:15; Stop 11/28/17 at 00:16; Status DC Levetriacetam (Keppra Liq) 1,000 mg Q12HR PO Last administered on 12/17/17at 07 :43; Start 11/29/17 at 09:00 Warfarin Sodium (Coumadin) 1 mg ONCE ONCE PO Last administered on 12/02/17at 15 :52; Start 12/02/17 at 16:00; Stop 12/02/17 at 16:01; Status DC Warfarin Sodium (Coumadin) 4 mg DAILY@1600 PO Last administered on 12/16/17at 13 :57; Start 12/03/17 at 16:00 Warfarin Sodium (Coumadin) 2 mg ONCE ONCE PO ; Start 12/05/17 at 16:00; Stop at 16:01; Status DC Enalaprilat (Vasotec Inj) 2.5 mg Q6H PRN IV PUSH SBP>160, DBP>90 Last administered on 12/13/17at 10:12; Start 12/07/17 at 11:15 Hydralazine HCl (Apresoline) 10 mg Q6HR PRN PO SBP>160, DBP>90; Start 12/07/17 at 11:15 Haloperidol (Haldol) 2 mg TID PRN PO AGITATION AND/OR HALLUCINATION; Start at 11:15; Stop 12/07/17 at 15:36; Status DC Haloperidol Lactate (Haldol Lactate Liq) 2 mg BID PO Last administered on at 07:43; Start 12/07/17 at 21:00 Lactobacillus Acidophilus (Lactinex) 1 tab Q12HR PO Last administered on at 07:44; Start 12/11/17 at 21:00 Metronidazole 100 ml @ 100 mls/hr Q8H IV Last administered on 12/14/17at 03:12 ; Start 12/11/17 at 20:00; Stop 12/14/17 at 12:48; Status DC Acetaminophen 65 ml @ 400 mls/hr ONCE ONCE IV Last administered on 12/11/17at 22:26; Start 12/11/17 at 16:45; Stop 12/11/17 at 18:21; Status DC Acetaminophen 100 ml @ 400 mls/hr Q8H PRN IV fever if not taking PO ; Start at 16:45 Sodium Chloride 1,000 ml @ 84 mls/hr [id number] IV Last administered on at 18:18; Start 12/11/17 at 17:00 Vancomycin HCl (Vancomycin 25 Mg/ml Liq) 250 mg QID PO Last administered on at 07:45; Start 12/12/17 at 18:00 A/P Problem List: (1) Encephalopathy ICD Code: G93.40 - Encephalopathy, unspecified (2) CVA (cerebral vascular accident) ICD Code: I63.9 - Cerebral infarction, unspecified (3) HTN (hypertension) ICD Code: I10 - Essential (primary) hypertension (4) Tobacco abuse ICD Code: Z72.0 - Tobacco use Assessment and Plan 67-year-old female with 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 - Continue Coumadin. Continue PT/OT. -PT/INR yesterday 1.2. pending today. pharmacist consulted and managing. Seizure - Continue Keppra. Seizure precautions Hypertension -BP controlled. continue with current regimen. C. difficile colitis (hyper virulent strain) - s/p Flagyl. Patient currently on vancomycin. Appreciate infectious disease recommendations. - Reported diarrhea Right heel wound. Consult wound care, appreciate recommendations. Special mattress ordered. Bipolar disorder, agitation - increase- refusing meds - Continue Seroquel. - seen by Psychiatry Cardiomyopathy - Continue beta evonne, JAYLEN inhibitor. Right subacute humeral fracture- occurred 09/30- ER - never got to see an Ortho referral from SNF -Orthopedic services saw patient, appreciate recommendations. -Nonoperative management, continue to keep position for healing. - NWB right UE - repeat XR in 2-3 weeks - PT - OP ff up with Ortho DVT prophylaxis - on Coumadin Discharge Planning Patient is noncompliant but part of her frustration seems like it may be due to her not be able to communicate with others. Pending placement. Skylar Hinkle MD Dec 17, 2017 11:05
[2017-12-17 12:00] VITALS: BP 127/62; PULSE 80; RESP 18; TEMP 96.5; O2SAT 97
[2017-12-17] MEDS: WARFARIN SOD 4 MG TAB PO SCH (15:44)
[2017-12-17 16:30] VITALS: BP 148/63; PULSE 77; RESP 17; TEMP 97.7; O2SAT 99
--- NOTE | 2017-12-17 16:39 | HHI.HCPN ---
Reason for visit a. To assist with evaluation and management of symptoms including:Pain, physical deconditioning b. To assist medical decision maker(s) with: better understanding of current medical conditions; weighing benefits/burdens of medical treatment options; making medical treatment decisions. Subjective/Interval History Patient is in bed and gesturing this proposal manager writer to bring in her food tray with lunch that has been left outside her room. Patient is alert and is able to follow commands with her left upper and lower extremities. Right side is flaccid. Patient has expressive aphasia but tries to communicate with gestures "pointing" and occasionally is able to say a word regarding what she wants. Assisted with setting up patient`s tray and cutting up her food. She has great appetite. Patient is able to feed herself. Patient denies pain at this time but points with her left hand to her right arm and said, "sometimes". Patient is calm during visit and easily gets agitated when she has difficulty with expressing herself. Valium discontinued today due to report from nursing that patient appears too sedated sometimes. Vital signs stable. Case discussed with bedside RN . Family/friend interactions Patient`s friend arrived during visit. . Advance Directives Living Will: Never completed Health Care Surrogate: Never completed Durable Power of Engineer Third Assistant: Never completed Advance Directive Specifics Health Care Surrogate(s): Health Care Proxy- Raul Mohamud- [phone] . Objective Vital Signs Date Time Temp Pulse Resp B/P (MAP) Pulse Ox O2 Delivery O2 Flow Rate FiO2 12/17/17 12:00 96.5 80 18 127/62 (83) 97 12/17/17 08:36 98.6 80 18 137/61 (86) 97 12/17/17 05:36 98.2 86 18 139/65 (89) 99 12/17/17 00:56 98.4 94 18 138/63 (88) 95 12/16/17 21:23 97.6 92 18 157/83 (107) 95 Physical Exam CONSTITUTIONAL/GENERAL: This is an adequately nourished patient, in no apparent distress. TUBES/LINES/DRAINS: SKIN: No jaundice, rashes, or lesions. Ecchymoses on upper extremities. No wounds seen anteriorly. Skin temperature appropriate. Not diaphoretic. HEAD: Atraumatic. Normocephalic. EYES: Pupils equal and round and reactive. Extraocular motions intact. No scleral icterus. No injection or drainage. Fundi not examined. ENT: Hearing grossly normal. Nose without bleeding or purulent drainage. Moist oral mucosa. NECK: Trachea midline. Supple, nontender. CARDIOVASCULAR: Regular rate and rhythm without murmurs, gallops, or rubs. No JVD. Peripheral pulses symmetric. RESPIRATORY/CHEST: Symmetric, unlabored respirations. Clear to auscultation. Breath sounds equal bilaterally. No wheezes, rales, or rhonchi. GASTROINTESTINAL: Abdomen soft, non-tender, nondistended. No guarding. Bowel sounds present. GENITOURINARY: Without palpable bladder distension. Incontinent of bladder. MUSCULOSKELETAL: Extremities without clubbing, cyanosis, or edema. No joint tenderness or effusion noted. No calf tenderness. No mottling or clubbing. NEUROLOGICAL:Awake, alert with expressive aphasia. Follows simple commands with LUE and LLE. Right side is flaccid PSYCHIATRIC:Patient is awake and calm. No obvious anxiety/depression. no apparent hallucinations or other psychotic thought process. . Diagnostic Tests Laboratory Laboratory Tests Test 12/15/17 19:26 12/17/17 07:30 Prothrombin Time 11.7 SEC (9.8-11.6) 12.0 SEC (9.8-11.6) Prothromb Time International Ratio 1.2 RATIO 1.2 RATIO Assessment and Plan Disease Oriented Problem List: (1) CVA (cerebral vascular accident) (2) HTN (hypertension) (3) Encephalopathy (4) Tobacco abuse Symptom Scale: (1) Pain 0-10 Scale: Unable to quantify Comment: Pain to RUE. Humerus X ray on 12/02/17 revealed Fracture through the proximal humerus. Periosteal bone formation suggesting healing. . (2) Physical deconditioning 0-10 Scale: Unable to quantify Comment: Progressive. . Pertinent Non-Medical Issues Psychosocial:Patient was born in [facility]. She is . Patient graduated from college and is a bachelor's degree in education. 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 Spiritual:Patient is Adventist Legal: Patient does not have advanced directives. Ethical issues impacting care: None identified at this time. . Important Contacts Son- Raul Bennett- [phone] Sister Rebecca Harvey [phone] Sister Michelle Raza [phone] . Prognosis Ms Rodríguez is a 67 years old female with a past medical history CVA with residual aphasia, right hemiplegia and left hemiparesis, hypertension, Diabetes Mellitus- Type 2, anxiety disorder, bipolar disorder, osteoarthritis and insomnia. Patient was admitted from 05/20/17-05/29/17 and treated for an acute left frontoparietal CVA .She was discharged to a SNF [facility]. Patient was transported by EMS to the ER on 10/25/17 with a complaint of altered mental status. Patient was found slumped over after she had wheeled herself outside to smoke, and ecchymosis to right humerus and forearm. Clinical course complicated with evolving left hemisphere CVA, agitation, and delirium. Given ongoing comorbidities, patient remains at high risk for further complications, deterioration and decline. . Code Status: Full Code Plan PLAN: Legal decision maker: Patient has a history of stroke with expressive aphasia , agitation and altered mental status during this hospitalization. Patient is not able to participate in making her own medical decisions. Patient has an adult son who according to [place] Statute will serve as patient`s Health Care Proxy. Goals: Aggressive CODE STATUS: Full Code SYMPTOMS: * Pain : to RUE. Humerus X ray on 12/02/17 revealed Fracture through the proximal humerus. Periosteal bone formation suggesting healing. Patient has Hydrocodone/acetaminophen 5/325 q 4 hrs prn pain. * Agitation: Multifactorial. History of bipolar disorder and CVA with expressive aphasia. Psychiatry consulted. On Seroquel 50mg BID. Seems to be compounded with inability to communicate her needs. No recommendations at this time. Valium discontinued 12/17/17. Patient is calm. * Physical deconditioning: Progressive. Patient has a history CVA with Residual Aphasia,Right Hemiplegia and Left Hemiparesis. During her admission in January 2017 patient weight 79.7kgs and on October 28, 2017 patient weighed 59.9kgs. Physical therapy consulted. Occupational and physical therapy following. Patient's participation is limited due to expressive aphasia, inability to comprehend complex commands, right hemiplegia and left hemiparesis. No recommendations at this time. Palliative care will continue to follow the patient during hospital course as condition evolves, to assist patient/decision-maker with understanding of their medical conditions, weighing benefits/burdens of treatment options, for clarification of goals of treatment. Additionally will assist with any symptoms of palliative concern Susan Dawson Dec 17, 2017 16:39
[2017-12-17 21:04] VITALS: BP 147/67; PULSE 84; RESP 18; TEMP 97.5; O2SAT 98
[2017-12-18 00:31] VITALS: BP 127/60; PULSE 80; RESP 18; TEMP 98.9; O2SAT 96
[2017-12-18 05:18] VITALS: BP 130/62; PULSE 77; RESP 18; TEMP 98; O2SAT 97
[2017-12-18 08:28] VITALS: BP 139/60; PULSE 93; RESP 16; TEMP 98.3; O2SAT 100
[2017-12-18] MEDS: levETIRAcetam 500 MG/5 ML UDC PO SCH ×2 (08:48→23:06)
[2017-12-18] MEDS: ATORVASTATIN 10 MG TAB PO SCH (08:49)
[2017-12-18] MEDS: LACTOBACILLUS ACIDOPHILUS TAB PO SCH ×2 (08:49→23:06)
[2017-12-18] MEDS: HALOPERIDOL LACTATE ORAL CONC 10 MG/5 ML CUP PO SCH ×2 (08:49→23:05)
[2017-12-18] MEDS: CARVEDILOL 3.125 MG TAB PO SCH ×2 (08:49→23:06)
[2017-12-18] MEDS: LISINOPRIL 5 MG TAB PO SCH ×2 (08:49→23:06)
[2017-12-18] MEDS: QUEtiapine FUMARATE 25 MG TAB PO SCH ×2 (08:49→11:49)
[2017-12-18] MEDS: VANCOMYCIN 25 MG/ML SOLN 100 ML BOTTLE PO SCH ×4 (09:00→23:07)
[2017-12-18] MEDS: DOCUSATE SODIUM 50 MG/SENNA 8.6 MG TAB PO SCH ×2 (09:00→21:00)
[2017-12-18] MEDS: SODIUM CHLORIDE 0.9% FLUSH 10 ML FLUSH IV FLUSH SCH ×2 (09:00→21:00)
[2017-12-18] MEDS: SODIUM CHLOR 0.9% 1000 ML INJ 1,000 ML IV SCH ×2 (09:16→23:07)
--- NOTE | 2017-12-18 10:42 | HHI.HCPN ---
Reason for visit a. To assist with evaluation and management of symptoms including:Pain, physical deconditioning b. To assist medical decision maker(s) with: better understanding of current medical conditions; weighing benefits/burdens of medical treatment options; making medical treatment decisions. Subjective/Interval History Patient gesturing this race and sports book writer to come into her room. Patient is currently in bed awake, alert. Patient gesturing for help with lowering bed. When asked if she wanted to sleep, patient was able to say "yes". Patient has expressive aphasia. Denies pain at this time. Pain managed with Hydrocodone/ acetaminophen 5/325. Patient required x4 doses prn in 24hrs. Patient is currently calm. Agitation managed with Seroquel 50mg BID, Haldol 2mg BID. Patient has Zyprexa 10mg q 12hrs prn. Last Zyprexa dose received 11/03/17. Vital signs stable. Orthopedic following-managing right proximal humerus fracture. Occupational therapy consulted for passive ranger of motion of shoulder. No recent labwork. Case discussed with bedside RN . Family/friend interactions No family at bedside. . Advance Directives Living Will: Never completed Health Care Surrogate: Never completed Durable Power of Group Home Manager: Never completed Advance Directive Specifics Health Care Surrogate(s): Health Care Proxy- Mikel- Raul Bennett- [phone] . Objective Vital Signs Date Time Temp Pulse Resp B/P (MAP) Pulse Ox O2 Delivery O2 Flow Rate FiO2 12/18/17 08:28 98.3 93 16 139/60 (86) 100 12/18/17 05:18 98.0 77 18 130/62 (84) 97 12/18/17 00:31 98.9 80 18 127/60 (82) 96 12/17/17 21:04 97.5 84 18 147/67 (93) 98 12/17/17 16:30 97.7 77 17 148/63 (91) 99 12/17/17 12:00 96.5 80 18 127/62 (83) 97 Intake & Output 12/18/17 12/18/17 07:00 19:00 Intake Total 480 ml Balance 480 ml Intake Oral 480 ml # Voids 5 1 # Bowel Movements 2 Physical Exam CONSTITUTIONAL/GENERAL: This is an adequately nourished patient, in no apparent distress. Denies pain. TUBES/LINES/DRAINS: Heel protector to Right pedal SKIN: No jaundice, rashes, or lesions. Ecchymoses on upper extremities. No wounds seen anteriorly. Skin temperature appropriate. Not diaphoretic. HEAD: Atraumatic. Normocephalic. EYES: Pupils equal and round and reactive. Extraocular motions intact. No scleral icterus. No injection or drainage. Fundi not examined. ENT: Hearing grossly normal. Nose without bleeding or purulent drainage. Moist oral mucosa. NECK: Trachea midline. Supple, nontender. CARDIOVASCULAR: Regular rate and rhythm without murmurs, gallops, or rubs. No JVD. Peripheral pulses symmetric. RESPIRATORY/CHEST: Symmetric, unlabored respirations. Clear to auscultation. Breath sounds equal bilaterally. No wheezes, rales, or rhonchi. GASTROINTESTINAL: Abdomen soft, non-tender, nondistended. No guarding. Bowel sounds present. GENITOURINARY: Without palpable bladder distension. Incontinent of bladder. MUSCULOSKELETAL: Extremities without clubbing, cyanosis, or edema. No joint tenderness or effusion noted. No calf tenderness. No mottling or clubbing. NEUROLOGICAL:Awake, alert with expressive aphasia. Follows simple commands with LUE and LLE. Right side is flaccid PSYCHIATRIC:Patient is awake and calm. No obvious anxiety/depression. no apparent hallucinations or other psychotic thought process. . Diagnostic Tests Laboratory Laboratory Tests Test 12/15/17 19:26 12/17/17 07:30 Prothrombin Time 11.7 SEC (9.8-11.6) 12.0 SEC (9.8-11.6) Prothromb Time International Ratio 1.2 RATIO 1.2 RATIO Assessment and Plan Disease Oriented Problem List: (1) CVA (cerebral vascular accident) (2) HTN (hypertension) (3) Encephalopathy (4) Tobacco abuse Symptom Scale: (1) Pain 0-10 Scale: Unable to quantify Comment: Pain to RUE. Humerus X ray on 12/02/17 revealed Fracture through the proximal humerus. Periosteal bone formation suggesting healing. . (2) Physical deconditioning 0-10 Scale: Unable to quantify Comment: Progressive. . Pertinent Non-Medical Issues Psychosocial:Patient was born in [facility]. She is . Patient graduated from college and is a bachelor's degree in education. 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 Spiritual:Patient is Alevism Legal: Patient does not have advanced directives. Ethical issues impacting care: None identified at this time. . Important Contacts Son- Donaldo Bennett [phone] Sister Harvey Fernandez [phone] Sister Michelle Raza [phone] . Prognosis Ms Rodríguez is a 67 years old female with a past medical history CVA with residual aphasia, right hemiplegia and left hemiparesis, hypertension, Diabetes Mellitus- Type 2, anxiety disorder, bipolar disorder, osteoarthritis and insomnia. Patient was admitted from 05/20/17-05/29/17 and treated for an acute left frontoparietal CVA .She was discharged to a SNF [facility]. Patient was transported by EMS to the ER on 10/25/17 with a complaint of altered mental status. Patient was found slumped over after she had wheeled herself outside to smoke, and ecchymosis to right humerus and forearm. Clinical course complicated with evolving left hemisphere CVA, agitation, and delirium. Given ongoing comorbidities, patient remains at high risk for further complications, deterioration and decline. . Code Status: Full Code Plan PLAN: Legal decision maker: Patient has a history of stroke with expressive aphasia , agitation and altered mental status during this hospitalization. Patient is not able to participate in making her own medical decisions. Patient has an adult son who according to [place] Statute will serve as patient`s Health Care Proxy. Goals: Aggressive CODE STATUS: Full Code SYMPTOMS: * Pain : to RUE. Humerus X ray on 12/02/17 revealed Fracture through the proximal humerus. Periosteal bone formation suggesting healing. Occupational therapy consulted. Patient has Hydrocodone/acetaminophen 5/325 q 4 hrs prn pain. Patient required x4 doses prn in 24hrs.Patient denies pain and is not showing any signs of pain at this time. No recommendations. * Agitation: Multifactorial. History of bipolar disorder and CVA with expressive aphasia. Psychiatry consulted. Seroquel 50mg BID, Haldol 2mg BID. Patient has Zyprexa 10mg q 12hrs prn. Last Zyprexa dose received 11/03/18Seems to be compounded with inability to communicate her needs due to expressive aphasia. No recommendations at this time. Valium discontinued 12/17/17. Patient is calm. * Physical deconditioning: Progressive. Patient has a history CVA with Residual Aphasia,Right Hemiplegia and Left Hemiparesis. During her admission in January 2017 patient weight 79.7kgs and on October 28, 2017 patient weighed 59.9kgs. Physical therapy consulted. Occupational and physical therapy following. Patient's participation is limited due to expressive aphasia, inability to comprehend complex commands, right hemiplegia and left hemiparesis. No recommendations at this time. Palliative care will continue to follow the patient during hospital course as condition evolves, to assist patient/decision-maker with understanding of their medical conditions, weighing benefits/burdens of treatment options, for clarification of goals of treatment. Additionally will assist with any symptoms of palliative concern Susan Dawson Dec 18, 2017 10:42
[2017-12-18 12:12] VITALS: BP 118/58; PULSE 87; RESP 16; TEMP 98.1; O2SAT 99
--- NOTE | 2017-12-18 12:17 | HHI.PR ---
Subjective Remarks Follow-up for CVA Per nurse no acute events. Patient has a blister on her heel. Otherwise no other complaints. Objective Vitals Vital Signs Date Time Temp Pulse Resp B/P (MAP) Pulse Ox O2 Delivery O2 Flow Rate FiO2 12/18/17 12:12 98.1 87 16 118/58 (78) 99 12/18/17 08:28 98.3 93 16 139/60 (86) 100 12/18/17 05:18 98.0 77 18 130/62 (84) 97 12/18/17 00:31 98.9 80 18 127/60 (82) 96 12/17/17 21:04 97.5 84 18 147/67 (93) 98 12/17/17 16:30 97.7 77 17 148/63 (91) 99 I/O 12/17/17 12/17/17 12/17/17 12/18/17 12/18/17 12/18/17 07:00 15:00 23:00 07:00 15:00 23:00 Intake Total 480 ml Balance 480 ml Intake Oral 480 ml # Voids 1 5 2 # Bowel Movements 2 1 Objective Remarks GENERAL: White female in no acute distress but is very agitated because she cannot express herself. CARDIOVASCULAR: Regular rate and rhythm without murmurs, gallops, or rubs. RESPIRATORY: Breath sounds equal bilaterally. No accessory muscle use. GASTROINTESTINAL: Abdomen soft, non-tender, nondistended. MUSCULOSKELETAL: No cyanosis, or edema. Right-sided weakness SKIN: right heel wound NEUROLOGIC: Right hemiparesis of upper and lower extremities moves left arm. Patient moves her left leg without any difficulty. Procedures none Medications and IVs Current Medications Levetriacetam 100 ml @ 400 mls/hr BOLUS ONCE IV Last administered on at 21:01; Start 10/25/17 at 20:30; Stop 10/25/17 at 20:44; Status DC Lorazepam (Ativan Inj) 1 mg Q5M PRN IV PUSH SEIZURE; Start 10/25/17 at 20:15; Stop 10/28/17 at 08:27; Status DC Sodium Chloride 1,000 ml @ 100 mls/hr Q10H IV Last administered on 10/27/17at 23 :00; Start 10/25/17 at 21:00; Stop 10/28/17 at 08:27; Status DC Sodium Chloride (NS Flush) 2 ml UNSCH PRN IV FLUSH FLUSH AFTER USING IV ACCESS ; Start 10/25/17 at 20:15; Stop 10/27/17 at 13:28; Status DC Sodium Chloride (NS Flush) 2 ml BID IV FLUSH Last administered on 10/27/17at 20: 20; Start 10/25/17 at 21:00; Stop 10/28/17 at 08:03; Status DC Ondansetron HCl (Zofran Inj) 4 mg Q6H PRN IVP NAUSEA OR VOMITING; Start at 20:15 Acetaminophen (Tylenol) 650 mg Q6H PRN PO FEVER/PAIN SCALE 1 TO 2 Last administered on 11/04/17at 17:50; Start 10/25/17 at 20:15 Acetaminophen/ Hydrocodone Bitart ([place] 5-325 Mg) 1 tab Q4H PRN PO PAIN SCALE 5 TO 10 Last administered on 12/17/17at 20:33; Start 10/25/17 at 20:15 Acetaminophen/ Hydrocodone Bitart ([place] 10-325 Mg) 1 tab Q4H PRN PO PAIN SCALE 6 TO 10 Last administered on 11/27/17at 23:04; Start 10/25/17 at 20:15; Stop 11/30/17 at 10:07; Status DC Senna/Docusate Sodium ([place]-Colace) 1 tab BID PO Last administered on at 23:13; Start 10/25/17 at 21:00 Magnesium Hydroxide (Milk Of Magnesia Liq) 30 ml Q12H PRN PO Mild constipation Last administered on 11/11/17at 09:36; Start 10/25/17 at 20:15 Sennosides (Senokot) 17.2 mg Q12H PRN PO Moderate constipation Last administered on 11/17/17at 10:02; Start 10/25/17 at 20:15 Bisacodyl (Dulcolax Supp) 10 mg DAILY PRN RECTAL SEVERE CONSITIPATION; Start at 20:15 Lactulose (Lactulose Liq) 30 ml DAILY PRN PO SEVERE CONSITIPATION Last administered on 10/31/17at 08:40; Start 10/25/17 at 20:15 Aspirin (Aspirin) 325 mg DAILY PO Last administered on 10/27/17at 09:33; Start at 09:00; Stop 10/28/17 at 08:00; Status DC Atorvastatin Calcium (Lipitor) 10 mg DAILY PO Last administered on 12/18/17at 08 :49; Start 10/26/17 at 09:00 Diazepam (Valium) 5 mg Q12HR PO Last administered on 12/16/17at 20:43; Start 10/25/17 at 21:00; Stop 12/17/17 at 11:01; Status DC Metoprolol Tartrate (Lopressor Inj) 5 mg ONCE ONCE IV PUSH Last administered on 10/25/17at 20:43; Start 10/25/17 at 20:30; Stop 10/25/17 at 20:31; Status DC Levetriacetam 100 ml @ 400 mls/hr Q12H IV Last administered on 10/26/17at 17:04 ; Start 10/26/17 at 16:00; Stop 10/27/17 at 07:33; Status DC Lorazepam (Ativan Inj) 1 mg Q6HR PRN IV PUSH SEIZURES; Start 10/26/17 at 15:00 Gadodiamide (Omniscan Pf Inj) 14 ml STK-MED ONCE IVCONTRAST Last administered on 10/26/17at 16:49; Start 10/26/17 at 16:49; Stop 10/26/17 at 16:50; Status DC Levetriacetam (Keppra) 500 mg Q12HR PO Last administered on 10/27/17at 20:40; Start 10/27/17 at 09:00; Stop 10/27/17 at 20:58; Status DC Clopidogrel Bisulfate (Plavix) 75 mg DAILY PO Last administered on 10/27/17at 13: 23; Start 10/27/17 at 13:00; Stop 10/27/17 at 20:57; Status DC Sodium Chloride (NS Flush) 2 ml UNSCH PRN IV FLUSH FLUSH AFTER USING IV ACCESS ; Start 10/27/17 at 13:00; Stop 10/28/17 at 08:03; Status DC Insulin Aspart (NovoLOG SUPPLEMENTAL SCALE) 1 ACHS SQ ; Start 10/27/17 at 17:00; Stop 10/28/17 at 08:03; Status DC Dextrose (D50w (Vial) Inj) 50 ml UNSCH PRN IV PUSH HYPOGLYCEMIA-SEE COMMENTS; Start 10/27/17 at 13:00; Stop 10/28/17 at 08:03; Status DC Glucagon (Glucagon Inj) 1 mg UNSCH PRN OTHER HYPOGLYCEMIA-SEE COMMENTS; Start 10/27/17 at 13:00; Stop 10/28/17 at 08:03; Status DC Heparin Sodium (Porcine) (Heparin Inj) 5,000 units Q12HR SQ Last administered on 10/27/17at 20:40; Start 10/27/17 at 21:00; Stop 10/27/17 at 21:00; Status DC Enalaprilat (Vasotec Inj) 1.25 mg Q8H PRN IV PUSH SBP>160, DBP>90 Last administered on 11/12/17at 17:53; Start 10/27/17 at 13:45 Iohexol (Omnipaque 350 Inj) 98 ml STK-MED ONCE IVCONTRAST Last administered on 10/27/17at 17:51; Start 10/27/17 at 17:51; Stop 10/27/17 at 17:54; Status DC Heparin Sodium/ Dextrose 250 ml @ 0 mls/hr TITRATE PRN IV Coagulation Management; Start 10/27/17 at 21:00; Stop 10/27/17 at 22:27; Status DC Sodium Chloride (NS Flush) 2 ml BID IV FLUSH Last administered on 12/16/17at 20: 44; Start 10/27/17 at 21:00 Sodium Chloride (NS Flush) 2 ml UNSCH PRN IV FLUSH FLUSH AFTER USING IV ACCESS ; Start 10/27/17 at 21:00 Insulin Aspart (NovoLOG SUPPLEMENTAL SCALE) 1 ACHS SQ ; Start 10/27/17 at 21:00; Stop 11/02/17 at 11:35; Status DC Dextrose (D50w (Vial) Inj) 50 ml UNSCH PRN IV PUSH HYPOGLYCEMIA-SEE COMMENTS; Start 10/27/17 at 21:00; Stop 11/02/17 at 11:35; Status DC Glucagon (Glucagon Inj) 1 mg UNSCH PRN OTHER HYPOGLYCEMIA-SEE COMMENTS; Start 10/27/17 at 21:00; Stop 11/02/17 at 11:35; Status DC Levetriacetam 500 mg/Sodium Chloride 105 ml @ 420 mls/hr Q6HR IV Last administered on 10/27/17at 21:00; Start 10/27/17 at 21:00; Stop 10/27/17 at 23:27; Status DC Heparin Sodium/ Dextrose 250 ml @ 7 mls/hr TITRATE PRN IV Coagulation Management Last administered on 11/02/17at 12:05; Start 10/27/17 at 22:30; Stop at 15:02; Status DC Levetriacetam 500 mg/Sodium Chloride 105 ml @ 420 mls/hr Q6H IV Last administered on 10/29/17at 11:03; Start 10/28/17 at 04:00; Stop 10/29/17 at 13:57; Status DC Aspirin (Aspirin Supp) 300 mg DAILY RECTAL Last administered on 11/03/17at 07:37 ; Start 10/28/17 at 09:00; Stop 11/03/17 at 15:12; Status DC Haloperidol Lactate (Haldol Inj) 2.5 mg NOW ONCE IM Last administered on at 08:18; Start 10/28/17 at 08:15; Stop 10/28/17 at 08:16; Status DC Haloperidol Lactate (Haldol Inj) 2.5 mg Q8H PRN IM AGITATION; Start 10/28/17 at 08:15; Stop 10/28/17 at 12:26; Status DC Morphine Sulfate (Morphine Inj) 1 mg Q4H PRN IV PAIN 1-5 IF NOT TOLERATING PO; Start 10/28/17 at 08:15; Stop 12/16/17 at 08:24; Status DC Morphine Sulfate (Morphine Inj) 2 mg Q4H PRN IV PAIN 6-10 IF NOT TOLERATING PO Last administered on 11/06/17at 17:48; Start 10/28/17 at 08:15; Stop 12/16/17 at 08:24; Status DC Potassium Chloride/Sodium Chloride 1,000 ml @ 50 mls/hr Q20H IV Last administered on 10/29/17at 16:50; Start 10/28/17 at 08:30; Stop 10/30/17 at 11:10; Status DC Quetiapine Fumarate (SEROquel) 25 mg BID@09,12 PO Last administered on at 08:40; Start 10/29/17 at 09:00; Stop 10/31/17 at 15:05; Status DC Haloperidol Lactate (Haldol Inj) 2 mg Q8H PRN IM severe agitation ; Start at 12:30; Stop 10/31/17 at 15:05; Status DC Warfarin Sodium (Coumadin) 5 mg DAILY@1600 PO Last administered on 11/02/17at 16 :23; Start 10/29/17 at 16:00; Stop 11/03/17 at 15:03; Status DC Patient Medication Teaching (Coumadin Booklet) 1 ONCE ONCE OTHER Last administered on 10/29/17at 16:00; Start 10/29/17 at 16:00; Stop 10/29/17 at 16:01; Status DC Levetriacetam (Keppra) 1,000 mg Q12HR PO Last administered on 11/27/17at 22:57; Start 10/29/17 at 21:00; Stop 11/28/17 at 23:02; Status DC Quetiapine Fumarate (SEROquel) 50 mg BID@09,12 PO Last administered on at 11:49; Start 11/01/17 at 09:00 Carvedilol (Coreg) 3.125 mg Q12HR PO Last administered on 12/18/17at 08:49; Start 10/31/17 at 21:00; Status Future hold Lisinopril (Prinivil) 2.5 mg DAILY PO Last administered on 11/07/17at 09:21; Start 11/01/17 at 09:00; Stop 11/08/17 at 09:07; Status DC Miscellaneous (Pill Splitter) 1 ea UNSCH PRN OTHER SEE LABEL COMMENTS; Start at 16:45 Olanzapine (ZyPREXA INJ) 10 mg Q12H PRN IM agitation Last administered on at 07:37; Start 11/01/17 at 13:15 Patient Medication Teaching (Coumadin Booklet) 1 ONCE ONCE OTHER Last administered on 11/02/17at 16:24; Start 11/02/17 at 16:00; Stop 11/02/17 at 16:01 ; Status DC Pharmacy Profile Note 0 ml @ 0 mls/hr UNSCH OTHER ; Start 11/02/17 at 08:45; Status Future hold Patient Medication Teaching (Coumadin Booklet) 1 ONCE ONCE OTHER ; Start at 16:00; Stop 11/02/17 at 16:01; Status Cancel Warfarin Sodium (Coumadin) 1 mg ONCE ONCE PO Last administered on 11/02/17at 16 :23; Start 11/02/17 at 16:00; Stop 11/02/17 at 16:01; Status DC Potassium Chloride/Sodium Chloride 1,000 ml @ 42 mls/hr [id number] IV Last administered on 11/07/17at 15:08; Start 11/03/17 at 14:00; Stop 11/08/17 at 09:07 ; Status DC Warfarin Sodium (Coumadin) 5 mg DAILY@1600 PO ; Start 11/04/17 at 16:00; Stop at 11:56; Status DC Albuterol Sulfate (Albuterol Neb) 0.63 mg Q4HR NEB PRN NEB sob; Start 11/04/17 at 09:00 Albuterol Sulfate (Albuterol Neb) 0.63 mg Q6HR NEB NEB Last administered on at 10:19; Start 11/04/17 at 10:00; Stop 11/08/17 at 09:59; Status DC Lactobacillus Acidophilus (Lactinex) 1 tab TID PO Last administered on at 09:33; Start 11/04/17 at 09:00; Stop 12/11/17 at 18:23; Status DC Sodium Chloride (NS Flush) 2 ml UNSCH PRN IV FLUSH FLUSH AFTER USING IV ACCESS ; Start 11/04/17 at 10:15; Stop 11/04/17 at 10:17; Status DC Sodium Chloride (NS Flush) 2 ml BID IV FLUSH ; Start 11/04/17 at 21:00; Stop at 21:00; Status DC Pharmacy Profile Note 0 ml @ 0 mls/hr UNSCH OTHER ; Start 11/04/17 at 10:15; Status Cancel Vancomycin HCl 1000 mg/Sodium Chloride 250 ml @ 250 mls/hr Q12H IV ; Start at 10:15; Stop 11/04/17 at 10:24; Status DC Piperacillin Sod/ Tazobactam Sod 100 ml @ 200 mls/hr Q6H IV Last administered on 11/04/17at 21:33; Start 11/04/17 at 16:00; Stop 11/05/17 at 00:16; Status DC Piperacillin Sod/ Tazobactam Sod 100 ml @ 200 mls/hr ONCE STAT IV Last administered on 11/04/17at 11:18; Start 11/04/17 at 10:08; Stop 11/04/17 at 10:37 ; Status DC Vancomycin HCl 1150 mg/Sodium Chloride 261.5 ml @ 250 mls/hr ONCE STAT IV ; Start 11/04/17 at 10:08; Stop 11/04/17 at 11:10; Status UNV Vancomycin HCl 1000 mg/Sodium Chloride 250 ml @ 250 mls/hr ONCE ONCE IV Last administered on 11/04/17at 11:47; Start 11/04/17 at 10:30; Stop 11/05/17 at 00:16 ; Status DC Vancomycin HCl 1000 mg/Sodium Chloride 250 ml @ 250 mls/hr Q24H IV ; Start at 12:00; Stop 11/04/17 at 12:19; Status DC Miscellaneous Information SPECIFIC LAB TO BE JOSE... ONCE ONCE .XX ; Start 11/07 at 11:45; Stop 11/07/17 at 11:46; Status Cancel Vancomycin HCl 1000 mg/Sodium Chloride 250 ml @ 250 mls/hr Q24H IV ; Start at 12:00; Stop 11/05/17 at 12:00; Status DC Metronidazole (Flagyl) 500 mg Q6HR PO ; Start 11/05/17 at 00:00; Status Cancel Metronidazole (Flagyl) 500 mg ONCE ONCE PO Last administered on 11/04/17at 21: 33; Start 11/04/17 at 20:00; Stop 11/04/17 at 20:01; Status DC Vancomycin HCl (VANCOMYCIN for oral use only) 500 mg Q6H PO Last administered on 11/18/17at 17:47; Start 11/05/17 at 00:00; Stop 11/18/17 at 23:55; Status DC Metronidazole 100 ml @ 100 mls/hr Q8H IV Last administered on 11/07/17at 17:38 ; Start 11/05/17 at 08:00; Stop 11/07/17 at 17:44; Status DC Potassium Chloride (KCl Powder) 40 meq ONCE ONCE PO Last administered on at 09:11; Start 11/06/17 at 09:00; Stop 11/06/17 at 09:06; Status DC Warfarin Sodium (Coumadin) 2.5 mg DAILY@1600 PO Last administered on 11/11/17at 17:32; Start 11/06/17 at 16:00; Stop 11/12/17 at 08:58; Status DC Lisinopril (Prinivil) 5 mg BID PO Last administered on 12/18/17at 08:49; Start 11/08/17 at 21:00 Warfarin Sodium (Coumadin) 2 mg ONCE ONCE PO Last administered on 11/09/17at 17 :07; Start 11/09/17 at 16:00; Stop 11/09/17 at 16:01; Status DC Warfarin Sodium (Coumadin) 2.5 mg DAILY@1600 PO Last administered on 11/14/17at 16:31; Start 11/13/17 at 16:00; Stop 11/15/17 at 10:38; Status DC Warfarin Sodium (Coumadin) 2.5 mg DAILY@1600 PO Last administered on 12/02/17at 11:01; Start 11/16/17 at 16:00; Stop 12/03/17 at 10:23; Status DC Warfarin Sodium (Coumadin) 1 mg ONCE ONCE PO ; Start 11/23/17 at 16:00; Stop 11/23/17 at 16:01; Status DC Warfarin Sodium (Coumadin) 1 mg ONCE ONCE PO Last administered on 11/25/17at 16: 59; Start 11/25/17 at 16:00; Stop 11/25/17 at 16:01; Status DC Warfarin Sodium (Coumadin) 1 mg ONCE ONCE PO Last administered on 11/26/17at 16: 44; Start 11/26/17 at 16:00; Stop 11/26/17 at 16:01; Status DC Clonidine (Catapres) 0.1 mg ONCE ONCE PO Last administered on 11/28/17at 00:20; Start 11/28/17 at 00:15; Stop 11/28/17 at 00:16; Status DC Levetriacetam (Keppra Liq) 1,000 mg Q12HR PO Last administered on 12/18/17 08 :48; Start 11/29/17 at 09:00 Warfarin Sodium (Coumadin) 1 mg ONCE ONCE PO Last administered on 12/02/17at 15 :52; Start 12/02/17 at 16:00; Stop 12/02/17 at 16:01; Status DC Warfarin Sodium (Coumadin) 4 mg DAILY@1600 PO Last administered on 12/17/17 15 :44; Start 12/03/17 at 16:00 Warfarin Sodium (Coumadin) 2 mg ONCE ONCE PO ; Start 12/05/17 at 16:00; Stop at 16:01; Status DC Enalaprilat (Vasotec Inj) 2.5 mg Q6H PRN IV PUSH SBP>160, DBP>90 Last administered on 12/13/17at 10:12; Start 12/07/17 at 11:15 Hydralazine HCl (Apresoline) 10 mg Q6HR PRN PO SBP>160, DBP>90; Start 12/07/17 at 11:15 Haloperidol (Haldol) 2 mg TID PRN PO AGITATION AND/OR HALLUCINATION; Start at 11:15; Stop 12/07/17 at 15:36; Status DC Haloperidol Lactate (Haldol Lactate Liq) 2 mg BID PO Last administered on 08:49; Start 12/07/17 at 21:00 Lactobacillus Acidophilus (Lactinex) 1 tab Q12HR PO Last administered on 08:49; Start 12/11/17 at 21:00 Metronidazole 100 ml @ 100 mls/hr Q8H IV Last administered on 12/14/17at 03:12 ; Start 12/11/17 at 20:00; Stop 12/14/17 at 12:48; Status DC Acetaminophen 65 ml @ 400 mls/hr ONCE ONCE IV Last administered on 12/11/17at 22:26; Start 12/11/17 at 16:45; Stop 12/11/17 at 18:21; Status DC Acetaminophen 100 ml @ 400 mls/hr Q8H PRN IV fever if not taking PO ; Start at 16:45 Sodium Chloride 1,000 ml @ 84 mls/hr [id number] IV Last administered on 2/23/ 18at 18:18; Start 12/11/17 at 17:00 Vancomycin HCl (Vancomycin 25 Mg/ml Liq) 250 mg QID PO Last administered on at 11:50; Start 12/12/17 at 18:00 A/P Problem List: (1) Encephalopathy ICD Code: G93.40 - Encephalopathy, unspecified (2) CVA (cerebral vascular accident) ICD Code: I63.9 - Cerebral infarction, unspecified (3) HTN (hypertension) ICD Code: I10 - Essential (primary) hypertension (4) Tobacco abuse ICD Code: Z72.0 - Tobacco use Assessment and Plan 67-year-old female with 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 - Continue Coumadin. Continue PT/OT. -PT/INR yesterday 1.2. pending today. pharmacist consulted and managing. -ask nurse to call speech to see if patient can try to communicate another way. Seizure - Continue Keppra. Seizure precautions Hypertension -BP controlled. continue with current regimen. C. difficile colitis (hyper virulent strain) - s/p Flagyl. Patient currently on vancomycin. Appreciate infectious disease recommendations. - Reported diarrhea Right heel wound. Consult wound care, appreciate recommendations. Special mattress ordered. Bipolar disorder, agitation - increase- refusing meds - Continue Seroquel. - seen by Psychiatry Cardiomyopathy - Continue beta evonne, JAYLEN inhibitor. Right subacute humeral fracture- occurred 09/30- ER - never got to see an Ortho referral from SNF -Orthopedic services saw patient, appreciate recommendations. -Nonoperative management, continue to keep position for healing. - NWB right UE - repeat XR in 2-3 weeks - PT - OP ff up with Ortho DVT prophylaxis - on Coumadin Discharge Planning Patient is noncompliant but part of her frustration seems like it may be due to her not be able to communicate with others. Pending placement. Skylar Hinkle MD Dec 18, 2017 12:17
[2017-12-18 16:29] VITALS: BP 144/64; PULSE 92; RESP 18; TEMP 98; O2SAT 96
[2017-12-18] MEDS: WARFARIN SOD 4 MG TAB PO SCH (18:18)
[2017-12-18 20:00] VITALS: BP 104/84; PULSE 68; RESP 18; TEMP 97; O2SAT 97
[2017-12-18] MEDS: ACETAMINOPHEN/HYDROcodone 325 MG/5 MG TAB PO PRN (23:00)
[2017-12-19] VITALS: BP 148/65; PULSE 81; RESP 18; TEMP 98.1; O2SAT 97
[2017-12-19 04:00] VITALS: BP 117/87; PULSE 68; RESP 18; TEMP 98; O2SAT 98
--- NOTE | 2017-12-19 08:15 | HHI.PR ---
Subjective Remarks in no acute distress. resting comfortably. denies pain. d/w the RN and no acute issues over night. Objective Vitals Vital Signs Date Time Temp Pulse Resp B/P (MAP) Pulse Ox O2 Delivery O2 Flow Rate FiO2 12/19/17 04:00 98.0 68 18 117/87 (97) 98 12/19/17 00:00 98.1 81 18 148/65 (92) 97 12/18/17 20:00 97.0 68 18 104/84 (91) 97 12/18/17 16:29 98.0 92 18 144/64 (90) 96 12/18/17 12:12 98.1 87 16 118/58 (78) 99 12/18/17 08:28 98.3 93 16 139/60 (86) 100 I/O 12/18/17 12/18/17 12/18/17 12/19/17 12/19/17 12/19/17 07:00 15:00 23:00 07:00 15:00 23:00 Intake Total 480 ml Balance 480 ml Intake Oral 480 ml # Voids 5 3 1 # Bowel Movements 2 1 Imaging Last Impressions Shoulder X-Ray 12/16/17 0000 Signed Impressions: Service Date/Time: Saturday, December 16, 2017 11:10 - CONCLUSION: Stable appearance to the subacute right proximal humeral neck fracture. Otherwise, no significant change is appreciated compared to the study from 2 weeks ago. George Jensen MD Chest X-Ray 12/11/17 0000 Signed Impressions: Service Date/Time: Monday, December 11, 2017 17:02 - CONCLUSION: The lungs are clear. Lionel Wood MD Humerus X-Ray 12/02/17 0000 Signed Impressions: Service Date/Time: Saturday, December 02, 2017 11:08 - CONCLUSION: 1. Fracture through the proximal humerus. There is periosteal bone formation suggesting healing. Nikolas Stewart MD Neck CTA 10/27/17 0000 Signed Impressions: Service Date/Time: Friday, October 27, 2017 17:42 - CONCLUSION: 1. Occluded left internal carotid artery 2. Mild narrowing at the origin of the right internal carotid artery measuring 30%%. 3. Patent vertebral arteries with good flow. Price Cee MD Head CTA 10/27/17 0000 Signed Impressions: Service Date/Time: Friday, October 27, 2017 17:42 - CONCLUSION: 1. Occluded intracranial segment of the left internal carotid artery. 2. Very scant flow in the left middle cerebral artery distribution with proximal MCA occlusion. 3. Evolving large left MCA infarct. Price Cee MD Head CT 10/27/17 0000 Signed Impressions: Service Date/Time: Friday, October 27, 2017 17:34 - CONCLUSION: 1. No evidence of acute right-sided infarction. Cystic encephalomalacia involving the left middle cerebral artery distribution unchanged 2. Pansinusitis Soren Rose MD Carotid Artery Ultrasound 10/27/17 0000 Signed Impressions: Service Date/Time: Friday, October 27, 2017 16:16 - CONCLUSION: 1. Findings of left carotid occlusion. CT angiography of the carotid arteries the brain is recommended for further evaluation Soren Rose MD Brain MRI 10/26/17 0000 Signed Impressions: Service Date/Time: Thursday, October 26, 2017 16:34 - CONCLUSION: Cystic encephalomalacia involving large left middle cerebral artery ischemic infarction. There is a small focus of restricted diffusion in the posterior left frontal region without hemorrhage characteristic of extension of the infarct. Pansinusitis Soren Rose MD Radius/Ulna X-Ray 10/25/17 0000 Signed Impressions: Service Date/Time: Wednesday, October 25, 2017 20:03 - CONCLUSION: 1. No acute fracture or dislocation. No bony destructive changes. Carlton Early MD Objective Remarks GENERAL: This is a well-nourished, well-developed patient, in no apparent distress. CARDIOVASCULAR: Regular rate and regular rhythm without murmurs, gallops, or rubs. RESPIRATORY: Clear to auscultation. Breath sounds equal bilaterally. No wheezes , rales, or rhonchi. GASTROINTESTINAL: Abdomen soft, non-tender, nondistended. Normal, active bowel sounds MUSCULOSKELETAL: Extremities without clubbing, cyanosis, or edema. NEURO: Awake and alert with dysphasia. Procedures none Medications and IVs Inpatient Medications Acetaminophen 100 ml @ 400 mls/hr Q8H PRN IV fever if not taking PO ; Start at 16:45 Acetaminophen (Tylenol) 650 mg Q6H PRN PO FEVER/PAIN SCALE 1 TO 2 Last administered on 11/04/17at 17:50; Start 10/25/17 at 20:15 Acetaminophen/ Hydrocodone Bitart ([place] 5-325 Mg) 1 tab Q4H PRN PO PAIN SCALE 5 TO 10 Last administered on 12/18/17at 23:00; Start 10/25/17 at 20:15 Acetaminophen/ Hydrocodone Bitart ([place] 10-325 Mg) 1 tab Q4H PRN PO PAIN SCALE 6 TO 10 Last administered on 11/27/17at 23:04; Start 10/25/17 at 20:15; Stop 11/30/17 at 10:07; Status DC Albuterol Sulfate (Albuterol Neb) 0.63 mg Q6HR NEB NEB Last administered on at 10:19; Start 11/04/17 at 10:00; Stop 11/08/17 at 09:59; Status DC Aspirin (Aspirin Supp) 300 mg DAILY RECTAL Last administered on 11/03/17at 07:37 ; Start 10/28/17 at 09:00; Stop 11/03/17 at 15:12; Status DC Aspirin (Aspirin) 325 mg DAILY PO Last administered on 10/27/17at 09:33; Start at 09:00; Stop 10/28/17 at 08:00; Status DC Atorvastatin Calcium (Lipitor) 10 mg DAILY PO Last administered on 12/18/17at 08 :49; Start 10/26/17 at 09:00 Bisacodyl (Dulcolax Supp) 10 mg DAILY PRN RECTAL SEVERE CONSITIPATION; Start at 20:15 Carvedilol (Coreg) 3.125 mg Q12HR PO Last administered on 12/18/17at 23:06; Start 10/31/17 at 21:00; Status Future hold Clonidine (Catapres) 0.1 mg ONCE ONCE PO Last administered on 11/28/17at 00:20; Start 11/28/17 at 00:15; Stop 11/28/17 at 00:16; Status DC Clopidogrel Bisulfate (Plavix) 75 mg DAILY PO Last administered on 10/27/17at 13: 23; Start 10/27/17 at 13:00; Stop 10/27/17 at 20:57; Status DC Dextrose (D50w (Vial) Inj) 50 ml UNSCH PRN IV PUSH HYPOGLYCEMIA-SEE COMMENTS; Start 10/27/17 at 21:00; Stop 11/02/17 at 11:35; Status DC Diazepam (Valium) 5 mg Q12HR PO Last administered on 12/16/17at 20:43; Start 10/25/17 at 21:00; Stop 12/17/17 at 11:01; Status DC Enalaprilat (Vasotec Inj) 2.5 mg Q6H PRN IV PUSH SBP>160, DBP>90 Last administered on 12/13/17at 10:12; Start 12/07/17 at 11:15 Glucagon (Glucagon Inj) 1 mg UNSCH PRN OTHER HYPOGLYCEMIA-SEE COMMENTS; Start 10/27/17 at 21:00; Stop 11/02/17 at 11:35; Status DC Haloperidol (Haldol) 2 mg TID PRN PO AGITATION AND/OR HALLUCINATION; Start at 11:15; Stop 12/07/17 at 15:36; Status DC Haloperidol Lactate (Haldol Inj) 2 mg Q8H PRN IM severe agitation ; Start at 12:30; Stop 10/31/17 at 15:05; Status DC Haloperidol Lactate (Haldol Lactate Liq) 2 mg BID PO Last administered on at 23:05; Start 12/07/17 at 21:00 Heparin Sodium (Porcine) (Heparin Inj) 5,000 units Q12HR SQ Last administered on 10/27/17at 20:40; Start 10/27/17 at 21:00; Stop 10/27/17 at 21:00; Status DC Heparin Sodium/ Dextrose 250 ml @ 7 mls/hr TITRATE PRN IV Coagulation Management Last administered on 11/02/17at 12:05; Start 10/27/17 at 22:30; Stop at 15:02; Status DC Hydralazine HCl (Apresoline) 10 mg Q6HR PRN PO SBP>160, DBP>90; Start 12/07/17 at 11:15 Insulin Aspart (NovoLOG SUPPLEMENTAL SCALE) 1 ACHS SQ ; Start 10/27/17 at 21:00; Stop 11/02/17 at 11:35; Status DC Lactobacillus Acidophilus (Lactinex) 1 tab Q12HR PO Last administered on at 23:06; Start 12/11/17 at 21:00 Lactulose (Lactulose Liq) 30 ml DAILY PRN PO SEVERE CONSITIPATION Last administered on 10/31/17at 08:40; Start 10/25/17 at 20:15 Levetriacetam (Keppra Liq) 1,000 mg Q12HR PO Last administered on 12/18/17at 23 :06; Start 11/29/17 at 09:00 Levetriacetam (Keppra) 1,000 mg Q12HR PO Last administered on 11/27/17at 22:57; Start 10/29/17 at 21:00; Stop 11/28/17 at 23:02; Status DC Levetriacetam 500 mg/Sodium Chloride 105 ml @ 420 mls/hr Q6H IV Last administered on 10/29/17at 11:03; Start 10/28/17 at 04:00; Stop 10/29/17 at 13:57; Status DC Lisinopril (Prinivil) 5 mg BID PO Last administered on 12/18/17at 23:06; Start 11/08/17 at 21:00 Lorazepam (Ativan Inj) 1 mg Q6HR PRN IV PUSH SEIZURES; Start 10/26/17 at 15:00 Magnesium Hydroxide (Milk Of Magnesia Liq) 30 ml Q12H PRN PO Mild constipation Last administered on 11/11/17at 09:36; Start 10/25/17 at 20:15 Metoprolol Tartrate (Lopressor Inj) 5 mg ONCE ONCE IV PUSH Last administered on 10/25/17at 20:43; Start 10/25/17 at 20:30; Stop 10/25/17 at 20:31; Status DC Metronidazole 100 ml @ 100 mls/hr Q8H IV Last administered on 12/14/17at 03:12 ; Start 12/11/17 at 20:00; Stop 12/14/17 at 12:48; Status DC Metronidazole (Flagyl) 500 mg ONCE ONCE PO Last administered on 11/04/17at 21: 33; Start 11/04/17 at 20:00; Stop 11/04/17 at 20:01; Status DC Miscellaneous (Pill Splitter) 1 ea UNSCH PRN OTHER SEE LABEL COMMENTS; Start at 16:45 Morphine Sulfate (Morphine Inj) 2 mg Q4H PRN IV PAIN 6-10 IF NOT TOLERATING PO Last administered on 11/06/17at 17:48; Start 10/28/17 at 08:15; Stop 12/16/17 at 08:24; Status DC Olanzapine (ZyPREXA INJ) 10 mg Q12H PRN IM agitation Last administered on at 07:37; Start 11/01/17 at 13:15 Ondansetron HCl (Zofran Inj) 4 mg Q6H PRN IVP NAUSEA OR VOMITING; Start at 20:15 Patient Medication Teaching (Coumadin Booklet) 1 ONCE ONCE OTHER Last administered on 11/02/17at 16:24; Start 11/02/17 at 16:00; Stop 11/02/17 at 16:01 ; Status DC Pharmacy Profile Note 0 ml @ 0 mls/hr UNSCH OTHER ; Start 11/02/17 at 08:45; Status Future hold Piperacillin Sod/ Tazobactam Sod 100 ml @ 200 mls/hr ONCE STAT IV Last administered on 11/04/17at 11:18; Start 11/04/17 at 10:08; Stop 11/04/17 at 10:37 ; Status DC Potassium Chloride/Sodium Chloride 1,000 ml @ 42 mls/hr [id number] IV Last administered on 11/07/17at 15:08; Start 11/03/17 at 14:00; Stop 11/08/17 at 09:07 ; Status DC Potassium Chloride (KCl Powder) 40 meq ONCE ONCE PO Last administered on at 09:11; Start 11/06/17 at 09:00; Stop 11/06/17 at 09:06; Status DC Quetiapine Fumarate (SEROquel) 50 mg BID@09,12 PO Last administered on at 11:49; Start 11/01/17 at 09:00 Senna/Docusate Sodium (Aleha-Colace) 1 tab BID PO Last administered on at 23:13; Start 10/25/17 at 21:00 Sennosides (Senokot) 17.2 mg Q12H PRN PO Moderate constipation Last administered on 11/17/17at 10:02; Start 10/25/17 at 20:15 Sodium Chloride 1,000 ml @ 84 mls/hr [id number] IV Last administered on at 18:18; Start 12/11/17 at 17:00 Sodium Chloride (NS Flush) 2 ml BID IV FLUSH ; Start 11/04/17 at 21:00; Stop at 21:00; Status DC Vancomycin HCl (VANCOMYCIN for oral use only) 500 mg Q6H PO Last administered on 11/18/17at 17:47; Start 11/05/17 at 00:00; Stop 11/18/17 at 23:55; Status DC Vancomycin HCl (Vancomycin 25 Mg/ml Liq) 250 mg QID PO Last administered on at 23:07; Start 12/12/17 at 18:00 Vancomycin HCl 1000 mg/Sodium Chloride 250 ml @ 250 mls/hr Q24H IV ; Start at 12:00; Stop 11/05/17 at 12:00; Status DC Warfarin Sodium (Coumadin) 2 mg ONCE ONCE PO ; Start 12/05/17 at 16:00; Stop at 16:01; Status DC A/P Problem List: (1) Encephalopathy ICD Code: G93.40 - Encephalopathy, unspecified (2) CVA (cerebral vascular accident) ICD Code: I63.9 - Cerebral infarction, unspecified (3) HTN (hypertension) ICD Code: I10 - Essential (primary) hypertension (4) Tobacco abuse ICD Code: Z72.0 - Tobacco use Assessment and Plan A/P 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 - Continue Coumadin. Continue PT/OT. - pharmacist consulted and managing the Coumadin dosing. Seizure - Continue Keppra. Seizure precautions Hypertension -BP controlled. continue with current regimen. C. difficile colitis (hyper virulent strain) - s/p Flagyl. Patient currently on vancomycin; stop date; 12/23/17. Right heel wound. Consulted wound care, appreciate recommendations. Special mattress ordered. Bipolar disorder, agitation - Continue Seroquel. - seen by Psychiatry Cardiomyopathy - Continue beta evonne, JAYLEN inhibitor. Right subacute humeral fracture- occurred 09/30- ER - never got to see an Ortho referral from [facility] -Orthopedic services saw patient, appreciate recommendations. -Nonoperative management, continue to keep position for healing. - NWB right UE - repeat XR in 2-3 weeks - PT - OP ff up with Ortho DVT prophylaxis - on Coumadin Bobo Ridley MD Dec 19, 2017 08:15
[2017-12-19 08:28] LABS: INTERNATIONAL NORMALIZED RATIO 1.3 RATIO; PROTHROMBIN TIME - PATIENT 12.8 SEC (9.8-11.6)
[2017-12-19 08:33] VITALS: BP 107/67; PULSE 80; RESP 20; TEMP 97.1; O2SAT 97
[2017-12-19] MEDS: SODIUM CHLORIDE 0.9% FLUSH 10 ML FLUSH IV FLUSH SCH ×2 (09:00→21:00)
[2017-12-19] MEDS: VANCOMYCIN 25 MG/ML SOLN 100 ML BOTTLE PO SCH ×4 (09:00→21:46)
[2017-12-19] MEDS: DOCUSATE SODIUM 50 MG/SENNA 8.6 MG TAB PO SCH ×2 (09:00→21:00)
[2017-12-19] MEDS: CARVEDILOL 3.125 MG TAB PO SCH ×2 (09:25→21:00)
[2017-12-19] MEDS: LACTOBACILLUS ACIDOPHILUS TAB PO SCH ×2 (09:25→21:00)
[2017-12-19] MEDS: QUEtiapine FUMARATE 25 MG TAB PO SCH ×2 (09:25→12:46)
[2017-12-19] MEDS: LISINOPRIL 5 MG TAB PO SCH ×2 (09:25→21:00)
[2017-12-19] MEDS: HALOPERIDOL LACTATE ORAL CONC 10 MG/5 ML CUP PO SCH ×2 (09:26→21:47)
[2017-12-19] MEDS: ATORVASTATIN 10 MG TAB PO SCH (09:26)
[2017-12-19] MEDS: levETIRAcetam 500 MG/5 ML UDC PO SCH ×2 (09:26→21:47)
--- NOTE | 2017-12-19 12:03 | HHI.HCPN ---
Reason for visit a. To assist with evaluation and management of symptoms including:Pain, physical deconditioning b. To assist medical decision maker(s) with: better understanding of current medical conditions; weighing benefits/burdens of medical treatment options; making medical treatment decisions. Subjective/Interval History Patient resting calmly in bed with no signs of pain or discomfort. Awake and alert. Patient denies pain by shaking head. Patient has expressive aphasia.Vital signs stable. Pain managed with Hydrocodone/ acetaminophen 5/325. Agitation managed with Seroquel 50mg BID, Haldol 2mg BID. Patient has Zyprexa 10mg q 12hrs prn. Orthopedic following-managing right proximal humerus fracture. Patient has a sling to RUE. Occupational therapy following. No recent labwork. Case discussed with case management- assisting with placement and in communication with patient`s son and sister regarding guardianship. . Family/friend interactions No family at bedside. . Advance Directives Living Will: Never completed Health Care Surrogate: Never completed Durable Power of Reweaver: Never completed Advance Directive Specifics Health Care Surrogate(s): Health Care Proxy- SonRaul Montero- [phone] . Objective Vital Signs Date Time Temp Pulse Resp B/P (MAP) Pulse Ox O2 Delivery O2 Flow Rate FiO2 12/19/17 08:33 97.1 80 20 107/67 (80) 97 12/19/17 04:00 98.0 68 18 117/87 (97) 98 12/19/17 00:00 98.1 81 18 148/65 (92) 97 12/18/17 20:00 97.0 68 18 104/84 (91) 97 12/18/17 16:29 98.0 92 18 144/64 (90) 96 12/18/17 12:12 98.1 87 16 118/58 (78) 99 Intake & Output 12/19/17 12/19/17 07:00 19:00 # Bowel Movements 1 Physical Exam CONSTITUTIONAL/GENERAL: This is an adequately nourished patient, in no apparent distress. Denies pain. TUBES/LINES/DRAINS: Sling to RUE SKIN: No jaundice, rashes, or lesions. Ecchymoses on upper extremities. No wounds seen anteriorly. Skin temperature appropriate. Not diaphoretic. HEAD: Atraumatic. Normocephalic. EYES: Pupils equal and round and reactive. Extraocular motions intact. No scleral icterus. No injection or drainage. Fundi not examined. ENT: Hearing grossly normal. Nose without bleeding or purulent drainage. Moist oral mucosa. NECK: Trachea midline. Supple, nontender. CARDIOVASCULAR: Regular rate and rhythm without murmurs, gallops, or rubs. No JVD. Peripheral pulses symmetric. RESPIRATORY/CHEST: Symmetric, unlabored respirations. Clear to auscultation. Breath sounds equal bilaterally. No wheezes, rales, or rhonchi. GASTROINTESTINAL: Abdomen soft, non-tender, nondistended. No guarding. Bowel sounds present. GENITOURINARY: Without palpable bladder distension. Incontinent of bladder. MUSCULOSKELETAL: Extremities without clubbing, cyanosis, or edema. No joint tenderness or effusion noted. No calf tenderness. No mottling or clubbing. NEUROLOGICAL:Awake, alert with expressive aphasia. Follows simple commands with LUE and LLE. Right side is flaccid PSYCHIATRIC:Patient is awake and calm. No obvious anxiety/depression. no apparent hallucinations or other psychotic thought process. . Diagnostic Tests Laboratory Laboratory Tests Test 12/17/17 07:30 12/19/17 07:40 Prothrombin Time 12.0 SEC (9.8-11.6) 12.8 SEC (9.8-11.6) Prothromb Time International Ratio 1.2 RATIO 1.3 RATIO Assessment and Plan Disease Oriented Problem List: (1) CVA (cerebral vascular accident) (2) HTN (hypertension) (3) Encephalopathy (4) Tobacco abuse Symptom Scale: (1) Pain 0-10 Scale: Unable to quantify Comment: Pain to RUE. Humerus X ray on 12/02/17 revealed Fracture through the proximal humerus. Periosteal bone formation suggesting healing. . (2) Physical deconditioning 0-10 Scale: Unable to quantify Comment: Progressive. . Pertinent Non-Medical Issues Psychosocial:Patient was born in [facility]. She is . Patient graduated from college and has a bachelor's degree in education. 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 Spiritual:Patient is Syn[employer] Legal: Patient does not have advanced directives. Ethical issues impacting care: None identified at this time. . Important Contacts Son- Raul Bennett- [phone] Sister Harvey Fernandez [phone] Sister Michelle Raza [phone] . Prognosis Ms Rodríguez is a 67 years old female with a past medical history CVA with residual aphasia, right hemiplegia and left hemiparesis, hypertension, Diabetes Mellitus- Type 2, anxiety disorder, bipolar disorder, osteoarthritis and insomnia. Patient was admitted from 05/20/17-05/29/17 and treated for an acute left frontoparietal CVA .She was discharged to a SNF [facility]. Patient was transported by EMS to the ER on 10/25/17 with a complaint of altered mental status. Patient was found slumped over after she had wheeled herself outside to smoke, and ecchymosis to right humerus and forearm. Clinical course complicated with evolving left hemisphere CVA, agitation, and delirium. Given ongoing comorbidities, patient remains at high risk for further complications, deterioration and decline. . Code Status: Full Code Plan PLAN: Legal decision maker: Patient has a history of stroke with expressive aphasia , agitation and altered mental status during this hospitalization. Patient is not able to participate in making her own medical decisions. Patient has an adult son who according to [place] Statute will serve as patient`s Health Care Proxy. Goals: Aggressive CODE STATUS: Full Code SYMPTOMS: * Pain : to RUE. Humerus X ray on 12/02/17 revealed Fracture through the proximal humerus. Periosteal bone formation suggesting healing. Occupational therapy consulted. Patient has Hydrocodone/acetaminophen 5/325 q 4 hrs prn pain. Patient required x4 doses prn in 24hrs.Patient denies pain and is not showing any signs of pain at this time. No recommendations. * Agitation: Multifactorial. History of bipolar disorder and CVA with expressive aphasia. Psychiatry consulted. Seroquel 50mg BID, Haldol 2mg BID. Patient has Zyprexa 10mg q 12hrs prn. Last Zyprexa dose received 18Seems to be compounded with inability to communicate her needs due to expressive aphasia. No recommendations at this time. Valium discontinued 12/17/17. Patient is calm. * Physical deconditioning: Progressive. Patient has a history CVA with Residual Aphasia,Right Hemiplegia and Left Hemiparesis. During her admission in January 2017 patient weight 79.7kgs and on October 28, 2017 patient weighed 59.9kgs. Physical therapy consulted. Occupational and physical therapy following. Patient's participation is limited due to expressive aphasia, inability to comprehend complex commands, right hemiplegia and left hemiparesis. No recommendations at this time. Palliative care will continue to follow the patient during hospital course as condition evolves, to assist patient/decision-maker with understanding of their medical conditions, weighing benefits/burdens of treatment options, for clarification of goals of treatment. Additionally will assist with any symptoms of palliative concern Attestation To help prompt me to consider important information that might be impacting today's encounter and assessment, information from prior notes written by myself or my colleagues may have been "brought forward" into today's note. My signature on this note, however, is an attestation that I personally performed the exam, history, and/or decision-making noted today, and, unless otherwise indicated, the interactions with patient, family, and staff as well as the review of records all occurred today. I also attest that the listed assessment and stated plan reflect my best clinical judgment today based on the combination of historical information, prior notes, and today's exam/ interactions. When time spent is documented, it refers only to time spent today by the signer, or if indicated, combined time spent today by collaborating physician/nurse practitioner. Susan Dawson Dec 19, 2017 12:03
[2017-12-19 12:27] VITALS: BP 148/62; PULSE 84; RESP 18; TEMP 98.1; O2SAT 97
[2017-12-19] MEDS: WARFARIN SOD 4 MG TAB PO SCH (12:46)
[2017-12-19] MEDS: SODIUM CHLOR 0.9% 1000 ML INJ 1,000 ML IV SCH (12:47)
[2017-12-19] MEDS: ACETAMINOPHEN/HYDROcodone 325 MG/5 MG TAB PO PRN ×2 (13:19→21:46)
[2017-12-19] MEDS ORDERED: WARFARIN SOD 1 MG TAB PO ONE (16:00)
[2017-12-19 17:01] VITALS: BP 110/59; PULSE 82; RESP 18; TEMP 98.1; O2SAT 98
[2017-12-19 21:30] VITALS: BP 130/76; PULSE 86; RESP 19; TEMP 97.6; O2SAT 96
[2017-12-20 00:20] VITALS: BP 125/65; PULSE 88; RESP 19; TEMP 98; O2SAT 97
[2017-12-20] MEDS: SODIUM CHLOR 0.9% 1000 ML INJ 1,000 ML IV SCH ×2 (03:35→08:17)
[2017-12-20 04:45] VITALS: BP 120/60; PULSE 80; RESP 19; TEMP 98; O2SAT 96
[2017-12-20] MEDS: ACETAMINOPHEN/HYDROcodone 325 MG/5 MG TAB PO PRN ×3 (05:24→17:32)
[2017-12-20 08:00] VITALS: BP 135/73; PULSE 68; RESP 16; TEMP 97.4; O2SAT 100
[2017-12-20] MEDS: QUEtiapine FUMARATE 25 MG TAB PO SCH ×3 (08:16→12:13)
[2017-12-20] MEDS: ATORVASTATIN 10 MG TAB PO SCH (08:16)
[2017-12-20] MEDS: CARVEDILOL 3.125 MG TAB PO SCH ×2 (08:16→21:00)
[2017-12-20] MEDS: HALOPERIDOL LACTATE ORAL CONC 10 MG/5 ML CUP PO SCH ×2 (08:16→21:00)
[2017-12-20] MEDS: LACTOBACILLUS ACIDOPHILUS TAB PO SCH ×2 (08:16→21:00)
[2017-12-20] MEDS: SODIUM CHLORIDE 0.9% FLUSH 10 ML FLUSH IV FLUSH SCH ×2 (08:16→21:00)
[2017-12-20] MEDS: levETIRAcetam 500 MG/5 ML UDC PO SCH ×2 (08:16→21:00)
[2017-12-20] MEDS: VANCOMYCIN 25 MG/ML SOLN 100 ML BOTTLE PO SCH ×3 (08:17→17:00)
[2017-12-20] MEDS: DOCUSATE SODIUM 50 MG/SENNA 8.6 MG TAB PO SCH ×2 (08:17→21:00)
[2017-12-20] MEDS: LISINOPRIL 5 MG TAB PO SCH ×2 (08:17→21:00)
[2017-12-20 08:39] LABS: INTERNATIONAL NORMALIZED RATIO 1.4 RATIO; PROTHROMBIN TIME - PATIENT 13.9 SEC (9.8-11.6)
--- NOTE | 2017-12-20 10:52 | HHI.PR ---
Subjective Remarks in no acute distress. clinically no change, no new complaints. Objective Vitals Vital Signs Date Time Temp Pulse Resp B/P (MAP) Pulse Ox O2 Delivery O2 Flow Rate FiO2 12/20/17 08:00 97.4 68 16 135/73 (93) 100 12/20/17 04:45 98.0 80 19 120/60 (80) 96 12/20/17 00:20 98.0 88 19 125/65 (85) 97 12/19/17 21:30 97.6 86 19 130/76 (94) 96 12/19/17 17:01 98.1 82 18 110/59 (76) 98 12/19/17 12:27 98.1 84 18 148/62 (90) 97 I/O 12/19/17 12/19/17 12/19/17 12/20/17 12/20/17 12/20/17 07:00 15:00 23:00 07:00 15:00 23:00 Intake Total 1250 ml 450 ml Balance 1250 ml 450 ml Intake Oral 1250 ml 450 ml # Voids 6 4 # Bowel Movements 1 1 0 Imaging Last Impressions Shoulder X-Ray 12/16/17 0000 Signed Impressions: Service Date/Time: Saturday, December 16, 2017 11:10 - CONCLUSION: Stable appearance to the subacute right proximal humeral neck fracture. Otherwise, no significant change is appreciated compared to the study from 2 weeks ago. George Jensen MD Chest X-Ray 12/11/17 0000 Signed Impressions: Service Date/Time: Monday, December 11, 2017 17:02 - CONCLUSION: The lungs are clear. Lionel Wood MD Humerus X-Ray 12/02/17 0000 Signed Impressions: Service Date/Time: Saturday, December 02, 2017 11:08 - CONCLUSION: 1. Fracture through the proximal humerus. There is periosteal bone formation suggesting healing. Nikolas Stewart MD Neck CTA 10/27/17 0000 Signed Impressions: Service Date/Time: Friday, October 27, 2017 17:42 - CONCLUSION: 1. Occluded left internal carotid artery 2. Mild narrowing at the origin of the right internal carotid artery measuring 30%%. 3. Patent vertebral arteries with good flow. Price Cee MD Head CTA 10/27/17 0000 Signed Impressions: Service Date/Time: Friday, October 27, 2017 17:42 - CONCLUSION: 1. Occluded intracranial segment of the left internal carotid artery. 2. Very scant flow in the left middle cerebral artery distribution with proximal MCA occlusion. 3. Evolving large left MCA infarct. Price Cee MD Head CT 10/27/17 0000 Signed Impressions: Service Date/Time: Friday, October 27, 2017 17:34 - CONCLUSION: 1. No evidence of acute right-sided infarction. Cystic encephalomalacia involving the left middle cerebral artery distribution unchanged 2. Pansinusitis Soren Rose MD Carotid Artery Ultrasound 10/27/17 0000 Signed Impressions: Service Date/Time: Friday, October 27, 2017 16:16 - CONCLUSION: 1. Findings of left carotid occlusion. CT angiography of the carotid arteries the brain is recommended for further evaluation Soren Rose MD Brain MRI 10/26/17 0000 Signed Impressions: Service Date/Time: Thursday, October 26, 2017 16:34 - CONCLUSION: Cystic encephalomalacia involving large left middle cerebral artery ischemic infarction. There is a small focus of restricted diffusion in the posterior left frontal region without hemorrhage characteristic of extension of the infarct. Pansinusitis Soren Rose MD Radius/Ulna X-Ray 10/25/17 0000 Signed Impressions: Service Date/Time: Wednesday, October 25, 2017 20:03 - CONCLUSION: 1. No acute fracture or dislocation. No bony destructive changes. Carlton Early MD Objective Remarks GENERAL: This is a well-nourished, well-developed patient, in no apparent distress. CARDIOVASCULAR: Regular rate and regular rhythm without murmurs, gallops, or rubs. RESPIRATORY: Clear to auscultation. Breath sounds equal bilaterally. No wheezes , rales, or rhonchi. GASTROINTESTINAL: Abdomen soft, non-tender, nondistended. Normal, active bowel sounds MUSCULOSKELETAL: Extremities without clubbing, cyanosis, or edema. NEURO: Awake and alert with dysphasia. Procedures none Medications and IVs Inpatient Medications Acetaminophen 100 ml @ 400 mls/hr Q8H PRN IV fever if not taking PO ; Start at 16:45 Acetaminophen (Tylenol) 650 mg Q6H PRN PO FEVER/PAIN SCALE 1 TO 2 Last administered on 11/04/17at 17:50; Start 10/25/17 at 20:15 Acetaminophen/ Hydrocodone Bitart ([place] 5-325 Mg) 1 tab Q4H PRN PO PAIN SCALE 5 TO 10 Last administered on 12/20/17at 05:24; Start 10/25/17 at 20:15 Acetaminophen/ Hydrocodone Bitart ([place] 10-325 Mg) 1 tab Q4H PRN PO PAIN SCALE 6 TO 10 Last administered on 11/27/17at 23:04; Start 10/25/17 at 20:15; Stop 11/30/17 at 10:07; Status DC Albuterol Sulfate (Albuterol Neb) 0.63 mg Q6HR NEB NEB Last administered on at 10:19; Start 11/04/17 at 10:00; Stop 11/08/17 at 09:59; Status DC Aspirin (Aspirin Supp) 300 mg DAILY RECTAL Last administered on 11/03/17at 07:37 ; Start 10/28/17 at 09:00; Stop 11/03/17 at 15:12; Status DC Aspirin (Aspirin) 325 mg DAILY PO Last administered on 10/27/17at 09:33; Start at 09:00; Stop 10/28/17 at 08:00; Status DC Atorvastatin Calcium (Lipitor) 10 mg DAILY PO Last administered on 12/20/17at 08: 16; Start 10/26/17 at 09:00 Bisacodyl (Dulcolax Supp) 10 mg DAILY PRN RECTAL SEVERE CONSITIPATION; Start at 20:15 Carvedilol (Coreg) 3.125 mg Q12HR PO Last administered on 12/20/17at 08:16; Start 10/31/17 at 21:00; Status Future hold Clonidine (Catapres) 0.1 mg ONCE ONCE PO Last administered on 11/28/17at 00:20; Start 11/28/17 at 00:15; Stop 11/28/17 at 00:16; Status DC Clopidogrel Bisulfate (Plavix) 75 mg DAILY PO Last administered on 10/27/17at 13: 23; Start 10/27/17 at 13:00; Stop 10/27/17 at 20:57; Status DC Dextrose (D50w (Vial) Inj) 50 ml UNSCH PRN IV PUSH HYPOGLYCEMIA-SEE COMMENTS; Start 10/27/17 at 21:00; Stop 11/02/17 at 11:35; Status DC Diazepam (Valium) 5 mg Q12HR PO Last administered on 12/16/17at 20:43; Start 10/25/17 at 21:00; Stop 12/17/17 at 11:01; Status DC Enalaprilat (Vasotec Inj) 2.5 mg Q6H PRN IV PUSH SBP>160, DBP>90 Last administered on 12/13/17at 10:12; Start 12/07/17 at 11:15 Glucagon (Glucagon Inj) 1 mg UNSCH PRN OTHER HYPOGLYCEMIA-SEE COMMENTS; Start 10/27/17 at 21:00; Stop 11/02/17 at 11:35; Status DC Haloperidol (Haldol) 2 mg TID PRN PO AGITATION AND/OR HALLUCINATION; Start at 11:15; Stop 12/07/17 at 15:36; Status DC Haloperidol Lactate (Haldol Inj) 2 mg Q8H PRN IM severe agitation ; Start at 12:30; Stop 10/31/17 at 15:05; Status DC Haloperidol Lactate (Haldol Lactate Liq) 2 mg BID PO Last administered on at 08:16; Start 12/07/17 at 21:00 Heparin Sodium (Porcine) (Heparin Inj) 5,000 units Q12HR SQ Last administered on 10/27/17at 20:40; Start 10/27/17 at 21:00; Stop 10/27/17 at 21:00; Status DC Heparin Sodium/ Dextrose 250 ml @ 7 mls/hr TITRATE PRN IV Coagulation Management Last administered on 11/02/17at 12:05; Start 10/27/17 at 22:30; Stop at 15:02; Status DC Hydralazine HCl (Apresoline) 10 mg Q6HR PRN PO SBP>160, DBP>90; Start 12/07/17 at 11:15 Insulin Aspart (NovoLOG SUPPLEMENTAL SCALE) 1 ACHS SQ ; Start 10/27/17 at 21:00; Stop 11/02/17 at 11:35; Status DC Lactobacillus Acidophilus (Lactinex) 1 tab Q12HR PO Last administered on at 08:16; Start 12/11/17 at 21:00 Lactulose (Lactulose Liq) 30 ml DAILY PRN PO SEVERE CONSITIPATION Last administered on 10/31/17at 08:40; Start 10/25/17 at 20:15 Levetriacetam (Keppra Liq) 1,000 mg Q12HR PO Last administered on 12/20/17at 08: 16; Start 11/29/17 at 09:00 Levetriacetam (Keppra) 1,000 mg Q12HR PO Last administered on 11/27/17at 22:57; Start 10/29/17 at 21:00; Stop 11/28/17 at 23:02; Status DC Levetriacetam 500 mg/Sodium Chloride 105 ml @ 420 mls/hr Q6H IV Last administered on 10/29/17at 11:03; Start 10/28/17 at 04:00; Stop 10/29/17 at 13:57; Status DC Lisinopril (Prinivil) 5 mg BID PO Last administered on 12/20/17at 08:17; Start at 21:00 Lorazepam (Ativan Inj) 1 mg Q6HR PRN IV PUSH SEIZURES; Start 10/26/17 at 15:00 Magnesium Hydroxide (Milk Of Magnesia Liq) 30 ml Q12H PRN PO Mild constipation Last administered on 11/11/17at 09:36; Start 10/25/17 at 20:15 Metoprolol Tartrate (Lopressor Inj) 5 mg ONCE ONCE IV PUSH Last administered on 10/25/17at 20:43; Start 10/25/17 at 20:30; Stop 10/25/17 at 20:31; Status DC Metronidazole 100 ml @ 100 mls/hr Q8H IV Last administered on 12/14/17at 03:12 ; Start 12/11/17 at 20:00; Stop 12/14/17 at 12:48; Status DC Metronidazole (Flagyl) 500 mg ONCE ONCE PO Last administered on 11/04/17at 21: 33; Start 11/04/17 at 20:00; Stop 11/04/17 at 20:01; Status DC Miscellaneous (Pill Splitter) 1 ea UNSCH PRN OTHER SEE LABEL COMMENTS; Start at 16:45 Morphine Sulfate (Morphine Inj) 2 mg Q4H PRN IV PAIN 6-10 IF NOT TOLERATING PO Last administered on 11/06/17at 17:48; Start 10/28/17 at 08:15; Stop 12/16/17 at 08:24; Status DC Olanzapine (ZyPREXA INJ) 10 mg Q12H PRN IM agitation Last administered on at 07:37; Start 11/01/17 at 13:15 Ondansetron HCl (Zofran Inj) 4 mg Q6H PRN IVP NAUSEA OR VOMITING; Start at 20:15 Patient Medication Teaching (Coumadin Booklet) 1 ONCE ONCE OTHER Last administered on 11/02/17at 16:24; Start 11/02/17 at 16:00; Stop 11/02/17 at 16:01 ; Status DC Pharmacy Profile Note 0 ml @ 0 mls/hr UNSCH OTHER ; Start 11/02/17 at 08:45; Status Future hold Piperacillin Sod/ Tazobactam Sod 100 ml @ 200 mls/hr ONCE STAT IV Last administered on 11/04/17at 11:18; Start 11/04/17 at 10:08; Stop 11/04/17 at 10:37 ; Status DC Potassium Chloride/Sodium Chloride 1,000 ml @ 42 mls/hr [id number] IV Last administered on 11/07/17at 15:08; Start 11/03/17 at 14:00; Stop 11/08/17 at 09:07 ; Status DC Potassium Chloride (KCl Powder) 40 meq ONCE ONCE PO Last administered on at 09:11; Start 11/06/17 at 09:00; Stop 11/06/17 at 09:06; Status DC Quetiapine Fumarate (SEROquel) 50 mg BID@09,12 PO Last administered on at 08:16; Start 11/01/17 at 09:00 Senna/Docusate Sodium (Aleah-Colace) 1 tab BID PO Last administered on at 23:13; Start 10/25/17 at 21:00 Sennosides (Senokot) 17.2 mg Q12H PRN PO Moderate constipation Last administered on 11/17/17at 10:02; Start 10/25/17 at 20:15 Sodium Chloride 1,000 ml @ 84 mls/hr [id number] IV Last administered on at 18:18; Start 12/11/17 at 17:00 Sodium Chloride (NS Flush) 2 ml BID IV FLUSH ; Start 11/04/17 at 21:00; Stop at 21:00; Status DC Vancomycin HCl (VANCOMYCIN for oral use only) 500 mg Q6H PO Last administered on 11/18/17at 17:47; Start 11/05/17 at 00:00; Stop 11/18/17 at 23:55; Status DC Vancomycin HCl (Vancomycin 25 Mg/ml Liq) 250 mg QID PO Last administered on 12/20at 08:17; Start 12/12/17 at 18:00; Stop 12/23/17 at 08:00 Vancomycin HCl 1000 mg/Sodium Chloride 250 ml @ 250 mls/hr Q24H IV ; Start at 12:00; Stop 11/05/17 at 12:00; Status DC Warfarin Sodium (Coumadin) 1 mg ONCE ONCE PO Last administered on 12/19/17at 18: 38; Start 12/19/17 at 16:00; Stop 12/19/17 at 16:01; Status DC A/P Problem List: (1) Encephalopathy ICD Code: G93.40 - Encephalopathy, unspecified (2) CVA (cerebral vascular accident) ICD Code: I63.9 - Cerebral infarction, unspecified (3) HTN (hypertension) ICD Code: I10 - Essential (primary) hypertension (4) Tobacco abuse ICD Code: Z72.0 - Tobacco use Assessment and Plan A/P 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 - Continue Coumadin. Continue PT/OT. - pharmacist consulted and managing the Coumadin dosing. Seizure - Continue Keppra. Seizure precautions Hypertension -BP controlled. continue with current regimen. C. difficile colitis (hyper virulent strain) - s/p Flagyl. Patient currently on vancomycin; stop date; 12/23/17. Right heel wound. Consulted wound care, appreciate recommendations. Special mattress ordered. Bipolar disorder, agitation - Continue Seroquel. - seen by Psychiatry Cardiomyopathy - Continue beta evonne, JAYLEN inhibitor. Right subacute humeral fracture- occurred 09/30- ER - never got to see an Ortho referral from SNF -Orthopedic services saw patient, appreciate recommendations. -Nonoperative management, continue to keep position for healing. - NWB right UE - repeat XR in 2-3 weeks - PT - OP ff up with Ortho DVT prophylaxis - on Coumadin Bobo Ridley MD Dec 20, 2017 10:52
[2017-12-20 12:00] VITALS: BP 126/61; PULSE 76; RESP 17; TEMP 97.6; O2SAT 98
[2017-12-20] MEDS: WARFARIN SOD 4 MG TAB PO SCH (15:08)
--- NOTE | 2017-12-20 15:57 | HHI.HCPN ---
Reason for visit a. To assist with evaluation and management of symptoms including:Pain, physical deconditioning b. To assist medical decision maker(s) with: better understanding of current medical conditions; weighing benefits/burdens of medical treatment options; making medical treatment decisions. Subjective/Interval History Patient just woke up , calm. Patient responding appropriately using yes and no answers. Denies pain. Pain managed with Hydrocodone/acetaminophen- she required x3 prn doses in the past 24 hrs. Physical therapy and occupational therapy following. Vital signs stable. Case management following. In regards to placement, per notes, patient`s son is awaiting hearing date for temporary guardianship. . Family/friend interactions No family at bedside. . Advance Directives Living Will: Never completed Health Care Surrogate: Never completed Durable Power of Nematologist: Never completed Advance Directive Specifics Health Care Surrogate(s): Health Care Proxy- Son- Raul Bennett- [phone] . Objective Vital Signs Date Time Temp Pulse Resp B/P (MAP) Pulse Ox O2 Delivery O2 Flow Rate FiO2 12/20/17 12:00 97.6 76 17 126/61 (82) 98 12/20/17 08:00 97.4 68 16 135/73 (93) 100 12/20/17 04:45 98.0 80 19 120/60 (80) 96 12/20/17 00:20 98.0 88 19 125/65 (85) 97 12/19/17 21:30 97.6 86 19 130/76 (94) 96 12/19/17 17:01 98.1 82 18 110/59 (76) 98 Intake & Output 12/20/17 12/20/17 07:00 19:00 Intake Total 1100 ml Balance 1100 ml Intake Oral 1100 ml # Voids 7 # Bowel Movements 1 Physical Exam CONSTITUTIONAL/GENERAL: This is an adequately nourished patient, in no apparent distress. Denies pain. TUBES/LINES/DRAINS: SKIN: No jaundice, rashes, or lesions. Ecchymoses on upper extremities. No wounds seen anteriorly. Skin temperature appropriate. Not diaphoretic. HEAD: Atraumatic. Normocephalic. EYES: Pupils equal and round and reactive. Extraocular motions intact. No scleral icterus. No injection or drainage. Fundi not examined. ENT: Hearing grossly normal. Nose without bleeding or purulent drainage. Moist oral mucosa. NECK: Trachea midline. Supple, nontender. CARDIOVASCULAR: Regular rate and rhythm without murmurs, gallops, or rubs. No JVD. Peripheral pulses symmetric. RESPIRATORY/CHEST: Symmetric, unlabored respirations. Clear to auscultation. Breath sounds equal bilaterally. No wheezes, rales, or rhonchi. GASTROINTESTINAL: Abdomen soft, non-tender, nondistended. No guarding. Bowel sounds present. GENITOURINARY: Without palpable bladder distension. Incontinent of bladder. MUSCULOSKELETAL: Extremities without clubbing, cyanosis, or edema. No joint tenderness or effusion noted. No calf tenderness. No mottling or clubbing. NEUROLOGICAL:Awake, alert with expressive aphasia. Follows simple commands with LUE and LLE. Right side is flaccid PSYCHIATRIC:Patient is awake and calm. No obvious anxiety/depression. no apparent hallucinations or other psychotic thought process. . Diagnostic Tests Laboratory Laboratory Tests Test 12/19/17 07:40 12/20/17 08:10 Prothrombin Time 12.8 SEC (9.8-11.6) 13.9 SEC (9.8-11.6) Prothromb Time International Ratio 1.3 RATIO 1.4 RATIO Assessment and Plan Disease Oriented Problem List: (1) CVA (cerebral vascular accident) (2) HTN (hypertension) (3) Encephalopathy (4) Tobacco abuse Symptom Scale: (1) Pain 0-10 Scale: Unable to quantify Comment: Pain to RUE. Humerus X ray on 12/02/17 revealed Fracture through the proximal humerus. Periosteal bone formation suggesting healing. . (2) Physical deconditioning 0-10 Scale: Unable to quantify Comment: Progressive. . Pertinent Non-Medical Issues Psychosocial:Patient was born in [facility]. She is . Patient graduated from college and has a bachelor's degree in education. 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 Spiritual:Patient is Restorationist Legal: Patient does not have advanced directives. Ethical issues impacting care: None identified at this time. . Important Contacts Son- Raul Bennett- [phone] Sister Harvey Fernandez [phone] Sister Michelle Raza [phone] . Prognosis Ms Rodríguez is a 67 years old female with a past medical history CVA with residual aphasia, right hemiplegia and left hemiparesis, hypertension, Diabetes Mellitus- Type 2, anxiety disorder, bipolar disorder, osteoarthritis and insomnia. Patient was admitted from 05/20/17-05/29/17 and treated for an acute left frontoparietal CVA .She was discharged to a SNF [facility]. Patient was transported by EMS to the ER on 10/25/17 with a complaint of altered mental status. Patient was found slumped over after she had wheeled herself outside to smoke, and ecchymosis to right humerus and forearm. Clinical course complicated with evolving left hemisphere CVA, agitation, and delirium. Given ongoing comorbidities, patient remains at high risk for further complications, deterioration and decline. . Code Status: Full Code Plan PLAN: Legal decision maker: Patient has a history of stroke with expressive aphasia , agitation and altered mental status during this hospitalization. Patient is not able to participate in making her own medical decisions. Patient has an adult son who according to [place] Statute will serve as patient`s Health Care Proxy. Goals: Aggressive CODE STATUS: Full Code SYMPTOMS: * Pain : to RUE. Humerus X ray on 12/02/17 revealed Fracture through the proximal humerus. Periosteal bone formation suggesting healing. Occupational therapy consulted. Patient has Hydrocodone/acetaminophen 5/325 q 4 hrs prn pain. Patient required x3 doses prn in 24hrs.Patient denies pain. No recommendations. * Agitation: Multifactorial. History of bipolar disorder and CVA with expressive aphasia. Psychiatry consulted. Seroquel 50mg BID, Haldol 2mg BID. Patient has Zyprexa 10mg q 12hrs prn. Last Zyprexa dose received 11/03/17eems to be compounded with inability to communicate her needs due to expressive aphasia. No recommendations at this time. Valium discontinued 12/17/17. Patient is calm. * Physical deconditioning: Progressive. Patient has a history CVA with Residual Aphasia,Right Hemiplegia and Left Hemiparesis. During her admission in January 2017 patient weight 79.7kgs and on October 28, 2017 patient weighed 59.9kgs. Physical therapy consulted. Occupational and physical therapy following. Patient's participation is limited due to expressive aphasia, inability to comprehend complex commands, right hemiplegia and left hemiparesis. No recommendations at this time. Palliative care will continue to follow the patient during hospital course as condition evolves, to assist patient/decision-maker with understanding of their medical conditions, weighing benefits/burdens of treatment options, for clarification of goals of treatment. Additionally will assist with any symptoms of palliative concern Susan Dawson Dec 20, 2017 15:57
[2017-12-20 16:00] VITALS: BP 125/68; PULSE 73; RESP 16; TEMP 97.9; O2SAT 98
[2017-12-20] MEDS ORDERED: WARFARIN SOD 1 MG TAB PO ONE (16:00)
[2017-12-20 22:00] VITALS: BP 129/88; PULSE 110; RESP 20; TEMP 98.3; O2SAT 97
[2017-12-21] MEDS: VANCOMYCIN 25 MG/ML SOLN 100 ML BOTTLE PO SCH ×5 (00:13→20:37)
[2017-12-21] MEDS: ACETAMINOPHEN/HYDROcodone 325 MG/5 MG TAB PO PRN ×3 (00:13→14:41)
[2017-12-21] MEDS: SODIUM CHLOR 0.9% 1000 ML INJ 1,000 ML IV SCH ×2 (03:25→07:21)
[2017-12-21 04:50] VITALS: BP 127/80; PULSE 89; RESP 20; TEMP 97; O2SAT 95
[2017-12-21] MEDS: levETIRAcetam 500 MG/5 ML UDC PO SCH ×2 (07:18→20:34)
[2017-12-21] MEDS: HALOPERIDOL LACTATE ORAL CONC 10 MG/5 ML CUP PO SCH ×2 (07:18→20:35)
[2017-12-21] MEDS: ATORVASTATIN 10 MG TAB PO SCH (07:19)
[2017-12-21] MEDS: LACTOBACILLUS ACIDOPHILUS TAB PO SCH ×2 (07:19→20:35)
[2017-12-21] MEDS: SODIUM CHLORIDE 0.9% FLUSH 10 ML FLUSH IV FLUSH SCH ×2 (07:20→20:36)
[2017-12-21] MEDS: DOCUSATE SODIUM 50 MG/SENNA 8.6 MG TAB PO SCH ×2 (07:20→20:35)
[2017-12-21] MEDS: QUEtiapine FUMARATE 25 MG TAB PO SCH ×2 (07:20→11:26)
[2017-12-21] MEDS: LISINOPRIL 5 MG TAB PO SCH ×2 (07:22→20:35)
[2017-12-21] MEDS: CARVEDILOL 3.125 MG TAB PO SCH ×2 (07:22→20:36)
[2017-12-21 08:30] VITALS: BP 169/74; PULSE 82; RESP 18; TEMP 97.5; O2SAT 99
[2017-12-21 08:54] LABS: INTERNATIONAL NORMALIZED RATIO 1.4 RATIO
--- NOTE | 2017-12-21 10:41 | HHI.PR ---
Subjective Remarks in no acute distress. no change. Objective Vitals Vital Signs Date Time Temp Pulse Resp B/P (MAP) Pulse Ox O2 Delivery O2 Flow Rate FiO2 12/21/17 08:30 97.5 82 18 169/74 (105) 99 12/21/17 04:50 97.0 89 20 127/80 (96) 95 12/20/17 22:00 98.3 110 20 129/88 (102) 97 12/20/17 16:00 97.9 73 16 125/68 (87) 98 12/20/17 12:00 97.6 76 17 126/61 (82) 98 I/O 12/20/17 12/20/17 12/20/17 12/21/17 12/21/17 12/21/17 07:00 15:00 23:00 07:00 15:00 23:00 Intake Total 450 ml 500 ml 100 ml Balance 450 ml 500 ml 100 ml Intake Oral 450 ml 500 ml 100 ml # Voids 4 4 7 # Bowel Movements 0 0 0 Imaging Last Impressions Shoulder X-Ray 12/16/17 0000 Signed Impressions: Service Date/Time: Saturday, December 16, 2017 11:10 - CONCLUSION: Stable appearance to the subacute right proximal humeral neck fracture. Otherwise, no significant change is appreciated compared to the study from 2 weeks ago. George Jensen MD Chest X-Ray 12/11/17 0000 Signed Impressions: Service Date/Time: Monday, December 11, 2017 17:02 - CONCLUSION: The lungs are clear. Lionel Wood MD Humerus X-Ray 12/02/17 0000 Signed Impressions: Service Date/Time: Saturday, December 02, 2017 11:08 - CONCLUSION: 1. Fracture through the proximal humerus. There is periosteal bone formation suggesting healing. Nikolas Stewart MD Neck CTA 10/27/17 0000 Signed Impressions: Service Date/Time: Friday, October 27, 2017 17:42 - CONCLUSION: 1. Occluded left internal carotid artery 2. Mild narrowing at the origin of the right internal carotid artery measuring 30%%. 3. Patent vertebral arteries with good flow. Price Cee MD Head CTA 10/27/17 0000 Signed Impressions: Service Date/Time: Friday, October 27, 2017 17:42 - CONCLUSION: 1. Occluded intracranial segment of the left internal carotid artery. 2. Very scant flow in the left middle cerebral artery distribution with proximal MCA occlusion. 3. Evolving large left MCA infarct. Price Cee MD Head CT 10/27/17 0000 Signed Impressions: Service Date/Time: Friday, October 27, 2017 17:34 - CONCLUSION: 1. No evidence of acute right-sided infarction. Cystic encephalomalacia involving the left middle cerebral artery distribution unchanged 2. Pansinusitis Soren Rose MD Carotid Artery Ultrasound 10/27/17 0000 Signed Impressions: Service Date/Time: Friday, October 27, 2017 16:16 - CONCLUSION: 1. Findings of left carotid occlusion. CT angiography of the carotid arteries the brain is recommended for further evaluation Soren Rose MD Brain MRI 10/26/17 0000 Signed Impressions: Service Date/Time: Thursday, October 26, 2017 16:34 - CONCLUSION: Cystic encephalomalacia involving large left middle cerebral artery ischemic infarction. There is a small focus of restricted diffusion in the posterior left frontal region without hemorrhage characteristic of extension of the infarct. Pansinusitis Soren Rose MD Radius/Ulna X-Ray 10/25/17 0000 Signed Impressions: Service Date/Time: Wednesday, October 25, 2017 20:03 - CONCLUSION: 1. No acute fracture or dislocation. No bony destructive changes. Carlton Early MD Objective Remarks GENERAL: This is a well-nourished, well-developed patient, in no apparent distress. CARDIOVASCULAR: Regular rate and regular rhythm without murmurs, gallops, or rubs. RESPIRATORY: Clear to auscultation. Breath sounds equal bilaterally. No wheezes , rales, or rhonchi. GASTROINTESTINAL: Abdomen soft, non-tender, nondistended. Normal, active bowel sounds MUSCULOSKELETAL: Extremities without clubbing, cyanosis, or edema. NEURO: Awake and alert with dysphasia. Procedures none Medications and IVs Inpatient Medications Acetaminophen 100 ml @ 400 mls/hr Q8H PRN IV fever if not taking PO ; Start at 16:45 Acetaminophen (Tylenol) 650 mg Q6H PRN PO FEVER/PAIN SCALE 1 TO 2 Last administered on 11/04/17at 17:50; Start 10/25/17 at 20:15 Acetaminophen/ Hydrocodone Bitart ([place] 5-325 Mg) 1 tab Q4H PRN PO PAIN SCALE 5 TO 10 Last administered on 12/21/17at 07:39; Start 10/25/17 at 20:15 Acetaminophen/ Hydrocodone Bitart ([place] 10-325 Mg) 1 tab Q4H PRN PO PAIN SCALE 6 TO 10 Last administered on 11/27/17at 23:04; Start 10/25/17 at 20:15; Stop 11/30/17 at 10:07; Status DC Albuterol Sulfate (Albuterol Neb) 0.63 mg Q6HR NEB NEB Last administered on at 10:19; Start 11/04/17 at 10:00; Stop 11/08/17 at 09:59; Status DC Aspirin (Aspirin Supp) 300 mg DAILY RECTAL Last administered on 11/03/17at 07:37 ; Start 10/28/17 at 09:00; Stop 11/03/17 at 15:12; Status DC Aspirin (Aspirin) 325 mg DAILY PO Last administered on 10/27/17at 09:33; Start at 09:00; Stop 10/28/17 at 08:00; Status DC Atorvastatin Calcium (Lipitor) 10 mg DAILY PO Last administered on 12/21/17at 07: 19; Start 10/26/17 at 09:00 Bisacodyl (Dulcolax Supp) 10 mg DAILY PRN RECTAL SEVERE CONSITIPATION; Start at 20:15 Carvedilol (Coreg) 3.125 mg Q12HR PO Last administered on 12/21/17at 07:22; Start 10/31/17 at 21:00; Status Future hold Clonidine (Catapres) 0.1 mg ONCE ONCE PO Last administered on 11/28/17at 00:20; Start 11/28/17 at 00:15; Stop 11/28/17 at 00:16; Status DC Clopidogrel Bisulfate (Plavix) 75 mg DAILY PO Last administered on 10/27/17at 13: 23; Start 10/27/17 at 13:00; Stop 10/27/17 at 20:57; Status DC Dextrose (D50w (Vial) Inj) 50 ml UNSCH PRN IV PUSH HYPOGLYCEMIA-SEE COMMENTS; Start 10/27/17 at 21:00; Stop 11/02/17 at 11:35; Status DC Diazepam (Valium) 5 mg Q12HR PO Last administered on 12/16/17at 20:43; Start 10/25/17 at 21:00; Stop 12/17/17 at 11:01; Status DC Enalaprilat (Vasotec Inj) 2.5 mg Q6H PRN IV PUSH SBP>160, DBP>90 Last administered on 12/13/17at 10:12; Start 12/07/17 at 11:15 Glucagon (Glucagon Inj) 1 mg UNSCH PRN OTHER HYPOGLYCEMIA-SEE COMMENTS; Start 10/27/17 at 21:00; Stop 11/02/17 at 11:35; Status DC Haloperidol (Haldol) 2 mg TID PRN PO AGITATION AND/OR HALLUCINATION; Start at 11:15; Stop 12/07/17 at 15:36; Status DC Haloperidol Lactate (Haldol Inj) 2 mg Q8H PRN IM severe agitation ; Start at 12:30; Stop 10/31/17 at 15:05; Status DC Haloperidol Lactate (Haldol Lactate Liq) 2 mg BID PO Last administered on at 07:18; Start 12/07/17 at 21:00 Heparin Sodium (Porcine) (Heparin Inj) 5,000 units Q12HR SQ Last administered on 10/27/17at 20:40; Start 10/27/17 at 21:00; Stop 10/27/17 at 21:00; Status DC Heparin Sodium/ Dextrose 250 ml @ 7 mls/hr TITRATE PRN IV Coagulation Management Last administered on 11/02/17at 12:05; Start 10/27/17 at 22:30; Stop at 15:02; Status DC Hydralazine HCl (Apresoline) 10 mg Q6HR PRN PO SBP>160, DBP>90; Start 12/07/17 at 11:15 Insulin Aspart (NovoLOG SUPPLEMENTAL SCALE) 1 ACHS SQ ; Start 10/27/17 at 21:00; Stop 11/02/17 at 11:35; Status DC Lactobacillus Acidophilus (Lactinex) 1 tab Q12HR PO Last administered on at 07:19; Start 12/11/17 at 21:00 Lactulose (Lactulose Liq) 30 ml DAILY PRN PO SEVERE CONSITIPATION Last administered on 10/31/17at 08:40; Start 10/25/17 at 20:15 Levetriacetam (Keppra Liq) 1,000 mg Q12HR PO Last administered on 12/21/17at 07: 18; Start 11/29/17 at 09:00 Levetriacetam (Keppra) 1,000 mg Q12HR PO Last administered on 11/27/17at 22:57; Start 10/29/17 at 21:00; Stop 11/28/17 at 23:02; Status DC Levetriacetam 500 mg/Sodium Chloride 105 ml @ 420 mls/hr Q6H IV Last administered on 10/29/17at 11:03; Start 10/28/17 at 04:00; Stop 10/29/17 at 13:57; Status DC Lisinopril (Prinivil) 5 mg BID PO Last administered on 12/21/17at 07:22; Start at 21:00 Lorazepam (Ativan Inj) 1 mg Q6HR PRN IV PUSH SEIZURES; Start 10/26/17 at 15:00 Magnesium Hydroxide (Milk Of Magneloy Liq) 30 ml Q12H PRN PO Mild constipation Last administered on 11/11/17at 09:36; Start 10/25/17 at 20:15 Metoprolol Tartrate (Lopressor Inj) 5 mg ONCE ONCE IV PUSH Last administered on 10/25/17at 20:43; Start 10/25/17 at 20:30; Stop 10/25/17 at 20:31; Status DC Metronidazole 100 ml @ 100 mls/hr Q8H IV Last administered on 12/14/17at 03:12 ; Start 12/11/17 at 20:00; Stop 12/14/17 at 12:48; Status DC Metronidazole (Flagyl) 500 mg ONCE ONCE PO Last administered on 11/04/17at 21: 33; Start 11/04/17 at 20:00; Stop 11/04/17 at 20:01; Status DC Miscellaneous (Pill Splitter) 1 ea UNSCH PRN OTHER SEE LABEL COMMENTS; Start at 16:45 Morphine Sulfate (Morphine Inj) 2 mg Q4H PRN IV PAIN 6-10 IF NOT TOLERATING PO Last administered on 11/06/17at 17:48; Start 10/28/17 at 08:15; Stop 12/16/17 at 08:24; Status DC Olanzapine (ZyPREXA INJ) 10 mg Q12H PRN IM agitation Last administered on at 07:37; Start 11/01/17 at 13:15 Ondansetron HCl (Zofran Inj) 4 mg Q6H PRN IVP NAUSEA OR VOMITING; Start at 20:15 Patient Medication Teaching (Coumadin Booklet) 1 ONCE ONCE OTHER Last administered on 11/02/17at 16:24; Start 11/02/17 at 16:00; Stop 11/02/17 at 16:01 ; Status DC Pharmacy Profile Note 0 ml @ 0 mls/hr UNSCH OTHER ; Start 11/02/17 at 08:45; Status Future hold Piperacillin Sod/ Tazobactam Sod 100 ml @ 200 mls/hr ONCE STAT IV Last administered on 11/04/17at 11:18; Start 11/04/17 at 10:08; Stop 11/04/17 at 10:37 ; Status DC Potassium Chloride/Sodium Chloride 1,000 ml @ 42 mls/hr [id number] IV Last administered on 11/07/17at 15:08; Start 11/03/17 at 14:00; Stop 11/08/17 at 09:07 ; Status DC Potassium Chloride (KCl Powder) 40 meq ONCE ONCE PO Last administered on at 09:11; Start 11/06/17 at 09:00; Stop 11/06/17 at 09:06; Status DC Quetiapine Fumarate (SEROquel) 50 mg BID@09,12 PO Last administered on at 07:20; Start 11/01/17 at 09:00 Senna/Docusate Sodium (Aleah-Colace) 1 tab BID PO Last administered on at 23:13; Start 10/25/17 at 21:00 Sennosides (Senokot) 17.2 mg Q12H PRN PO Moderate constipation Last administered on 11/17/17at 10:02; Start 10/25/17 at 20:15 Sodium Chloride 1,000 ml @ 84 mls/hr [id number] IV Last administered on at 18:18; Start 12/11/17 at 17:00 Sodium Chloride (NS Flush) 2 ml BID IV FLUSH ; Start 11/04/17 at 21:00; Stop at 21:00; Status DC Vancomycin HCl (VANCOMYCIN for oral use only) 500 mg Q6H PO Last administered on 11/18/17at 17:47; Start 11/05/17 at 00:00; Stop 11/18/17 at 23:55; Status DC Vancomycin HCl (Vancomycin 25 Mg/ml Liq) 250 mg QID PO Last administered on 12/21at 07:20; Start 12/12/17 at 18:00; Stop 12/23/17 at 08:00 Vancomycin HCl 1000 mg/Sodium Chloride 250 ml @ 250 mls/hr Q24H IV ; Start at 12:00; Stop 11/05/17 at 12:00; Status DC Warfarin Sodium (Coumadin) 1 mg ONCE ONCE PO Last administered on 12/20/17at 15: 08; Start 12/20/17 at 16:00; Stop 12/20/17 at 16:01; Status DC A/P Problem List: (1) Encephalopathy ICD Code: G93.40 - Encephalopathy, unspecified (2) CVA (cerebral vascular accident) ICD Code: I63.9 - Cerebral infarction, unspecified (3) HTN (hypertension) ICD Code: I10 - Essential (primary) hypertension (4) Tobacco abuse ICD Code: Z72.0 - Tobacco use Assessment and Plan A/P 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 - Continue Coumadin. Continue PT/OT. - pharmacist consulted and managing the Coumadin dosing. Seizure - Continue Keppra. Seizure precautions Hypertension -BP controlled. continue with current regimen. C. difficile colitis (hyper virulent strain) - s/p Flagyl. Patient currently on vancomycin; stop date; 12/23/17. Right heel wound. Consulted wound care, appreciate recommendations. Special mattress ordered. Bipolar disorder, agitation - Continue Seroquel. - seen by Psychiatry Cardiomyopathy - Continue beta evonne, JAYLEN inhibitor. Right subacute humeral fracture- occurred 09/30- ER - never got to see an Ortho referral from [facility] -Orthopedic services saw patient, appreciate recommendations. -Nonoperative management, continue to keep position for healing. - NWB right UE - repeat XR in 2-3 weeks - PT - OP ff up with Ortho DVT prophylaxis - on Coumadin Discharge Planning dc planning in progress. Bobo Ridley MD Dec 21, 2017 10:41
[2017-12-21 12:23] VITALS: BP 125/60; PULSE 92; RESP 18; TEMP 98.1; O2SAT 100
[2017-12-21] MEDS: WARFARIN SOD 4 MG TAB PO SCH (14:42)
[2017-12-21] MEDS ORDERED: WARFARIN SOD 2 MG TAB PO ONE (16:00)
[2017-12-21 20:22] VITALS: BP 137/61; PULSE 101; RESP 17; TEMP 98.2; O2SAT 98
[2017-12-22 00:43] VITALS: BP 135/97; PULSE 85; RESP 16; TEMP 97.9; O2SAT 97
[2017-12-22] MEDS: ACETAMINOPHEN/HYDROcodone 325 MG/5 MG TAB PO PRN ×4 (02:29→19:49)
[2017-12-22] MEDS: SODIUM CHLOR 0.9% 1000 ML INJ 1,000 ML IV SCH ×2 (02:33→08:39)
[2017-12-22 05:28] VITALS: BP 123/59; PULSE 78; RESP 16; TEMP 97.6; O2SAT 98
[2017-12-22 08:04] VITALS: BP 168/82; PULSE 78; RESP 20; TEMP 97.3; O2SAT 99
[2017-12-22] MEDS: levETIRAcetam 500 MG/5 ML UDC PO SCH ×2 (08:37→20:00)
[2017-12-22] MEDS: VANCOMYCIN 25 MG/ML SOLN 100 ML BOTTLE PO SCH ×4 (08:37→20:00)
[2017-12-22] MEDS: HALOPERIDOL LACTATE ORAL CONC 10 MG/5 ML CUP PO SCH ×2 (08:37→20:00)
[2017-12-22] MEDS: LACTOBACILLUS ACIDOPHILUS TAB PO SCH ×2 (08:38→20:00)
[2017-12-22] MEDS: DOCUSATE SODIUM 50 MG/SENNA 8.6 MG TAB PO SCH ×2 (08:38→19:50)
[2017-12-22] MEDS: LISINOPRIL 5 MG TAB PO SCH ×2 (08:38→19:50)
[2017-12-22] MEDS: SODIUM CHLORIDE 0.9% FLUSH 10 ML FLUSH IV FLUSH SCH ×2 (08:38→19:49)
[2017-12-22] MEDS: QUEtiapine FUMARATE 25 MG TAB PO SCH ×2 (08:38→11:42)
[2017-12-22] MEDS: ATORVASTATIN 10 MG TAB PO SCH (08:38)
[2017-12-22] MEDS: CARVEDILOL 3.125 MG TAB PO SCH ×2 (08:38→19:49)
[2017-12-22 08:54] LABS: INTERNATIONAL NORMALIZED RATIO 1.7 RATIO; PROTHROMBIN TIME - PATIENT 17.6 SEC (9.8-11.6)
--- NOTE | 2017-12-22 11:05 | HHI.PR ---
Subjective Remarks in no acute distress. looks comfortable. clinically no change. Objective Vitals Vital Signs Date Time Temp Pulse Resp B/P (MAP) Pulse Ox O2 Delivery O2 Flow Rate FiO2 12/22/17 08:04 97.3 78 20 168/82 (110) 99 12/22/17 05:28 97.6 78 16 123/59 (80) 98 12/22/17 00:43 97.9 85 16 135/97 (110) 97 12/21/17 20:22 98.2 101 17 137/61 (86) 98 12/21/17 12:23 98.1 92 18 125/60 (81) 100 I/O 12/21/17 12/21/17 12/21/17 12/22/17 12/22/17 12/22/17 07:00 15:00 23:00 07:00 15:00 23:00 Intake Total 100 ml 960 ml 240 ml Balance 100 ml 960 ml 240 ml Intake Oral 100 ml 960 ml 240 ml # Voids 7 3 4 # Bowel Movements 0 1 Imaging Last Impressions Shoulder X-Ray 12/16/17 0000 Signed Impressions: Service Date/Time: Saturday, December 16, 2017 11:10 - CONCLUSION: Stable appearance to the subacute right proximal humeral neck fracture. Otherwise, no significant change is appreciated compared to the study from 2 weeks ago. George Jensen MD Chest X-Ray 12/11/17 0000 Signed Impressions: Service Date/Time: Monday, December 11, 2017 17:02 - CONCLUSION: The lungs are clear. Lionel Wood MD Humerus X-Ray 12/02/17 0000 Signed Impressions: Service Date/Time: Saturday, December 02, 2017 11:08 - CONCLUSION: 1. Fracture through the proximal humerus. There is periosteal bone formation suggesting healing. Nikolas Stewart MD Neck CTA 10/27/17 0000 Signed Impressions: Service Date/Time: Friday, October 27, 2017 17:42 - CONCLUSION: 1. Occluded left internal carotid artery 2. Mild narrowing at the origin of the right internal carotid artery measuring 30%%. 3. Patent vertebral arteries with good flow. Price Cee MD Head CTA 10/27/17 0000 Signed Impressions: Service Date/Time: Friday, October 27, 2017 17:42 - CONCLUSION: 1. Occluded intracranial segment of the left internal carotid artery. 2. Very scant flow in the left middle cerebral artery distribution with proximal MCA occlusion. 3. Evolving large left MCA infarct. Price Cee MD Head CT 10/27/17 0000 Signed Impressions: Service Date/Time: Friday, October 27, 2017 17:34 - CONCLUSION: 1. No evidence of acute right-sided infarction. Cystic encephalomalacia involving the left middle cerebral artery distribution unchanged 2. Pansinusitis Soren Rose MD Carotid Artery Ultrasound 10/27/17 0000 Signed Impressions: Service Date/Time: Friday, October 27, 2017 16:16 - CONCLUSION: 1. Findings of left carotid occlusion. CT angiography of the carotid arteries the brain is recommended for further evaluation Soren Rose MD Brain MRI 10/26/17 0000 Signed Impressions: Service Date/Time: Thursday, October 26, 2017 16:34 - CONCLUSION: Cystic encephalomalacia involving large left middle cerebral artery ischemic infarction. There is a small focus of restricted diffusion in the posterior left frontal region without hemorrhage characteristic of extension of the infarct. Pansinusitis Soren Rose MD Radius/Ulna X-Ray 10/25/17 0000 Signed Impressions: Service Date/Time: Wednesday, October 25, 2017 20:03 - CONCLUSION: 1. No acute fracture or dislocation. No bony destructive changes. Carlton Early MD Objective Remarks GENERAL: This is a well-nourished, well-developed patient, in no apparent distress. CARDIOVASCULAR: Regular rate and regular rhythm without murmurs, gallops, or rubs. RESPIRATORY: Clear to auscultation. Breath sounds equal bilaterally. No wheezes , rales, or rhonchi. GASTROINTESTINAL: Abdomen soft, non-tender, nondistended. Normal, active bowel sounds MUSCULOSKELETAL: Extremities without clubbing, cyanosis, or edema. NEURO: Awake and alert with dysphasia. Procedures none Medications and IVs Inpatient Medications Acetaminophen 100 ml @ 400 mls/hr Q8H PRN IV fever if not taking PO ; Start at 16:45 Acetaminophen (Tylenol) 650 mg Q6H PRN PO FEVER/PAIN SCALE 1 TO 2 Last administered on 11/04/17at 17:50; Start 10/25/17 at 20:15 Acetaminophen/ Hydrocodone Bitart ([place] 5-325 Mg) 1 tab Q4H PRN PO PAIN SCALE 5 TO 10 Last administered on 12/22/17at 08:38; Start 10/25/17 at 20:15 Acetaminophen/ Hydrocodone Bitart ([place] 10-325 Mg) 1 tab Q4H PRN PO PAIN SCALE 6 TO 10 Last administered on 11/27/17at 23:04; Start 10/25/17 at 20:15; Stop 11/30/17 at 10:07; Status DC Albuterol Sulfate (Albuterol Neb) 0.63 mg Q6HR NEB NEB Last administered on at 10:19; Start 11/04/17 at 10:00; Stop 11/08/17 at 09:59; Status DC Aspirin (Aspirin Supp) 300 mg DAILY RECTAL Last administered on 11/03/17at 07:37 ; Start 10/28/17 at 09:00; Stop 11/03/17 at 15:12; Status DC Aspirin (Aspirin) 325 mg DAILY PO Last administered on 10/27/17at 09:33; Start at 09:00; Stop 10/28/17 at 08:00; Status DC Atorvastatin Calcium (Lipitor) 10 mg DAILY PO Last administered on 12/22/17at 08: 38; Start 10/26/17 at 09:00 Bisacodyl (Dulcolax Supp) 10 mg DAILY PRN RECTAL SEVERE CONSITIPATION; Start at 20:15 Carvedilol (Coreg) 3.125 mg Q12HR PO Last administered on 12/22/17at 08:38; Start 10/31/17 at 21:00; Status Future hold Clonidine (Catapres) 0.1 mg ONCE ONCE PO Last administered on 11/28/17at 00:20; Start 11/28/17 at 00:15; Stop 11/28/17 at 00:16; Status DC Clopidogrel Bisulfate (Plavix) 75 mg DAILY PO Last administered on 10/27/17at 13: 23; Start 10/27/17 at 13:00; Stop 10/27/17 at 20:57; Status DC Dextrose (D50w (Vial) Inj) 50 ml UNSCH PRN IV PUSH HYPOGLYCEMIA-SEE COMMENTS; Start 10/27/17 at 21:00; Stop 11/02/17 at 11:35; Status DC Diazepam (Valium) 5 mg Q12HR PO Last administered on 12/16/17at 20:43; Start 10/25/17 at 21:00; Stop 12/17/17 at 11:01; Status DC Enalaprilat (Vasotec Inj) 2.5 mg Q6H PRN IV PUSH SBP>160, DBP>90 Last administered on 12/13/17at 10:12; Start 12/07/17 at 11:15 Glucagon (Glucagon Inj) 1 mg UNSCH PRN OTHER HYPOGLYCEMIA-SEE COMMENTS; Start 10/27/17 at 21:00; Stop 11/02/17 at 11:35; Status DC Haloperidol (Haldol) 2 mg TID PRN PO AGITATION AND/OR HALLUCINATION; Start at 11:15; Stop 12/07/17 at 15:36; Status DC Haloperidol Lactate (Haldol Inj) 2 mg Q8H PRN IM severe agitation ; Start at 12:30; Stop 10/31/17 at 15:05; Status DC Haloperidol Lactate (Haldol Lactate Liq) 2 mg BID PO Last administered on at 08:37; Start 12/07/17 at 21:00 Heparin Sodium (Porcine) (Heparin Inj) 5,000 units Q12HR SQ Last administered on 10/27/17at 20:40; Start 10/27/17 at 21:00; Stop 10/27/17 at 21:00; Status DC Heparin Sodium/ Dextrose 250 ml @ 7 mls/hr TITRATE PRN IV Coagulation Management Last administered on 11/02/17at 12:05; Start 10/27/17 at 22:30; Stop at 15:02; Status DC Hydralazine HCl (Apresoline) 10 mg Q6HR PRN PO SBP>160, DBP>90; Start 12/07/17 at 11:15 Insulin Aspart (NovoLOG SUPPLEMENTAL SCALE) 1 ACHS SQ ; Start 10/27/17 at 21:00; Stop 11/02/17 at 11:35; Status DC Lactobacillus Acidophilus (Lactinex) 1 tab Q12HR PO Last administered on at 08:38; Start 12/11/17 at 21:00 Lactulose (Lactulose Liq) 30 ml DAILY PRN PO SEVERE CONSITIPATION Last administered on 10/31/17at 08:40; Start 10/25/17 at 20:15 Levetriacetam (Keppra Liq) 1,000 mg Q12HR PO Last administered on 12/22/17at 08: 37; Start 11/29/17 at 09:00 Levetriacetam (Keppra) 1,000 mg Q12HR PO Last administered on 11/27/17at 22:57; Start 10/29/17 at 21:00; Stop 11/28/17 at 23:02; Status DC Levetriacetam 500 mg/Sodium Chloride 105 ml @ 420 mls/hr Q6H IV Last administered on 10/29/17at 11:03; Start 10/28/17 at 04:00; Stop 10/29/17 at 13:57; Status DC Lisinopril (Prinivil) 5 mg BID PO Last administered on 12/22/17 08:38; Start at 21:00 Lorazepam (Ativan Inj) 1 mg Q6HR PRN IV PUSH SEIZURES; Start 10/26/17 at 15:00 Magnesium Hydroxide (Milk Of Magnesia Liq) 30 ml Q12H PRN PO Mild constipation Last administered on 11/11/17at 09:36; Start 10/25/17 at 20:15 Metoprolol Tartrate (Lopressor Inj) 5 mg ONCE ONCE IV PUSH Last administered on 10/25/17at 20:43; Start 10/25/17 at 20:30; Stop 10/25/17 at 20:31; Status DC Metronidazole 100 ml @ 100 mls/hr Q8H IV Last administered on 12/14/17at 03:12 ; Start 12/11/17 at 20:00; Stop 12/14/17 at 12:48; Status DC Metronidazole (Flagyl) 500 mg ONCE ONCE PO Last administered on 11/04/17at 21: 33; Start 11/04/17 at 20:00; Stop 11/04/17 at 20:01; Status DC Miscellaneous (Pill Splitter) 1 ea UNSCH PRN OTHER SEE LABEL COMMENTS; Start at 16:45 Morphine Sulfate (Morphine Inj) 2 mg Q4H PRN IV PAIN 6-10 IF NOT TOLERATING PO Last administered on 11/06/17at 17:48; Start 10/28/17 at 08:15; Stop 12/16/17 at 08:24; Status DC Olanzapine (ZyPREXA INJ) 10 mg Q12H PRN IM agitation Last administered on at 07:37; Start 11/01/17 at 13:15 Ondansetron HCl (Zofran Inj) 4 mg Q6H PRN IVP NAUSEA OR VOMITING; Start at 20:15 Patient Medication Teaching (Coumadin Booklet) 1 ONCE ONCE OTHER Last administered on 11/02/17at 16:24; Start 11/02/17 at 16:00; Stop 11/02/17 at 16:01 ; Status DC Pharmacy Profile Note 0 ml @ 0 mls/hr UNSCH OTHER ; Start 11/02/17 at 08:45; Status Future hold Piperacillin Sod/ Tazobactam Sod 100 ml @ 200 mls/hr ONCE STAT IV Last administered on 11/04/17at 11:18; Start 11/04/17 at 10:08; Stop 11/04/17 at 10:37 ; Status DC Potassium Chloride/Sodium Chloride 1,000 ml @ 42 mls/hr [id number] IV Last administered on 11/07/17at 15:08; Start 11/03/17 at 14:00; Stop 11/08/17 at 09:07 ; Status DC Potassium Chloride (KCl Powder) 40 meq ONCE ONCE PO Last administered on at 09:11; Start 11/06/17 at 09:00; Stop 11/06/17 at 09:06; Status DC Quetiapine Fumarate (SEROquel) 50 mg BID@09,12 PO Last administered on at 08:38; Start 11/01/17 at 09:00 Senna/Docusate Sodium (Aleah-Colace) 1 tab BID PO Last administered on at 23:13; Start 10/25/17 at 21:00 Sennosides (Senokot) 17.2 mg Q12H PRN PO Moderate constipation Last administered on 11/17/17at 10:02; Start 10/25/17 at 20:15 Sodium Chloride 1,000 ml @ 84 mls/hr [id number] IV Last administered on at 18:18; Start 12/11/17 at 17:00 Sodium Chloride (NS Flush) 2 ml BID IV FLUSH ; Start 11/04/17 at 21:00; Stop at 21:00; Status DC Vancomycin HCl (VANCOMYCIN for oral use only) 500 mg Q6H PO Last administered on 11/18/17at 17:47; Start 11/05/17 at 00:00; Stop 11/18/17 at 23:55; Status DC Vancomycin HCl (Vancomycin 25 Mg/ml Liq) 250 mg QID PO Last administered on 12/22at 08:37; Start 12/12/17 at 18:00; Stop 12/23/17 at 08:00 Vancomycin HCl 1000 mg/Sodium Chloride 250 ml @ 250 mls/hr Q24H IV ; Start at 12:00; Stop 11/05/17 at 12:00; Status DC Warfarin Sodium (Coumadin) 2 mg ONCE ONCE PO Last administered on 12/21/17at 14: 42; Start 12/21/17 at 16:00; Stop 12/21/17 at 16:01; Status DC A/P Problem List: (1) Encephalopathy ICD Code: G93.40 - Encephalopathy, unspecified (2) CVA (cerebral vascular accident) ICD Code: I63.9 - Cerebral infarction, unspecified (3) HTN (hypertension) ICD Code: I10 - Essential (primary) hypertension (4) Tobacco abuse ICD Code: Z72.0 - Tobacco use Assessment and Plan A/P 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 - Continue Coumadin. Continue PT/OT. - pharmacist consulted and managing the Coumadin dosing. Seizure - Continue Keppra. Seizure precautions Hypertension -BP controlled. continue with current regimen. C. difficile colitis (hyper virulent strain) - s/p Flagyl. Patient currently on vancomycin; stop date; 12/23/17. Right heel wound. Consulted wound care, appreciate recommendations. Special mattress ordered. Bipolar disorder, agitation - Continue Seroquel. - seen by Psychiatry Cardiomyopathy - Continue beta evonne, JAYLEN inhibitor. Right subacute humeral fracture- occurred 09/30- ER - never got to see an Ortho referral from [facility] -Orthopedic services saw patient, appreciate recommendations. -Nonoperative management, continue to keep position for healing. - NWB right UE - repeat XR in 2-3 weeks - PT - OP ff up with Ortho DVT prophylaxis - on Coumadin Discharge Planning dc planning in progress. Bobo Ridley MD Dec 22, 2017 11:05
[2017-12-22 11:54] VITALS: BP 123/77; PULSE 97; RESP 20; TEMP 98; O2SAT 97
[2017-12-22] MEDS: WARFARIN SOD 4 MG TAB PO SCH (15:51)
[2017-12-22] MEDS ORDERED: WARFARIN SOD 2 MG TAB PO ONE (16:00)
[2017-12-22 16:30] VITALS: BP 125/64; PULSE 95; RESP 18; TEMP 97.7; O2SAT 98
[2017-12-22 19:40] VITALS: BP 123/56; PULSE 92; RESP 20; TEMP 98.5; O2SAT 98
[2017-12-23] VITALS (7 sets, daily range): BP systolic 111–162; BP diastolic 54–72; PULSE 70–101; RESP 16–20; TEMP 97.3–98.4; O2SAT 92–100
[2017-12-23] MEDS: ACETAMINOPHEN/HYDROcodone 325 MG/5 MG TAB PO PRN ×6 (01:58→22:33)
[2017-12-23] MEDS: SODIUM CHLOR 0.9% 1000 ML INJ 1,000 ML IV SCH (02:06)
[2017-12-23] MEDS: SODIUM CHLORIDE 0.9% FLUSH 10 ML FLUSH IV FLUSH SCH ×2 (09:00→22:37)
[2017-12-23] MEDS: LISINOPRIL 5 MG TAB PO SCH ×2 (09:54→22:38)
[2017-12-23] MEDS: HALOPERIDOL LACTATE ORAL CONC 10 MG/5 ML CUP PO SCH ×2 (09:54→22:33)
[2017-12-23] MEDS: DOCUSATE SODIUM 50 MG/SENNA 8.6 MG TAB PO SCH ×2 (09:54→22:37)
[2017-12-23] MEDS: ATORVASTATIN 10 MG TAB PO SCH (09:54)
[2017-12-23] MEDS: CARVEDILOL 3.125 MG TAB PO SCH ×2 (09:55→22:38)
[2017-12-23] MEDS: LACTOBACILLUS ACIDOPHILUS TAB PO SCH ×2 (09:55→22:38)
[2017-12-23] MEDS: QUEtiapine FUMARATE 25 MG TAB PO SCH ×2 (09:55→12:42)
[2017-12-23] MEDS: levETIRAcetam 500 MG/5 ML UDC PO SCH ×2 (09:55→22:33)
--- NOTE | 2017-12-23 10:47 | HHI.PR ---
Subjective Remarks in no acute distress. denies pain. no new complaints. Objective Vitals Vital Signs Date Time Temp Pulse Resp B/P (MAP) Pulse Ox O2 Delivery O2 Flow Rate FiO2 12/23/17 08:21 97.7 72 16 162/70 (100) 98 12/23/17 05:24 98.2 70 17 159/67 (97) 99 12/23/17 00:45 97.7 78 17 147/72 (97) 92 12/22/17 19:40 98.5 92 20 123/56 (78) 98 12/22/17 16:30 97.7 95 18 125/64 (84) 98 12/22/17 11:54 98.0 97 20 123/77 (92) 97 I/O 12/22/17 12/22/17 12/22/17 12/23/17 12/23/17 12/23/17 07:00 15:00 23:00 07:00 15:00 23:00 Intake Total 240 ml 720 ml 360 ml Balance 240 ml 720 ml 360 ml Intake Oral 240 ml 720 ml 360 ml # Voids 4 6 3 1 # Bowel Movements 1 1 Imaging Last Impressions Shoulder X-Ray 12/16/17 0000 Signed Impressions: Service Date/Time: Saturday, December 16, 2017 11:10 - CONCLUSION: Stable appearance to the subacute right proximal humeral neck fracture. Otherwise, no significant change is appreciated compared to the study from 2 weeks ago. George Jensen MD Chest X-Ray 12/11/17 0000 Signed Impressions: Service Date/Time: Monday, December 11, 2017 17:02 - CONCLUSION: The lungs are clear. Lionel Wood MD Humerus X-Ray 12/02/17 0000 Signed Impressions: Service Date/Time: Saturday, December 02, 2017 11:08 - CONCLUSION: 1. Fracture through the proximal humerus. There is periosteal bone formation suggesting healing. Nikolas Stewart MD Neck CTA 10/27/17 0000 Signed Impressions: Service Date/Time: Friday, October 27, 2017 17:42 - CONCLUSION: 1. Occluded left internal carotid artery 2. Mild narrowing at the origin of the right internal carotid artery measuring 30%%. 3. Patent vertebral arteries with good flow. Price Cee MD Head CTA 10/27/17 0000 Signed Impressions: Service Date/Time: Friday, October 27, 2017 17:42 - CONCLUSION: 1. Occluded intracranial segment of the left internal carotid artery. 2. Very scant flow in the left middle cerebral artery distribution with proximal MCA occlusion. 3. Evolving large left MCA infarct. Price Cee MD Head CT 10/27/17 0000 Signed Impressions: Service Date/Time: Friday, October 27, 2017 17:34 - CONCLUSION: 1. No evidence of acute right-sided infarction. Cystic encephalomalacia involving the left middle cerebral artery distribution unchanged 2. Pansinusitis Soren Rose MD Carotid Artery Ultrasound 10/27/17 0000 Signed Impressions: Service Date/Time: Friday, October 27, 2017 16:16 - CONCLUSION: 1. Findings of left carotid occlusion. CT angiography of the carotid arteries the brain is recommended for further evaluation Soern Rose MD Brain MRI 10/26/17 0000 Signed Impressions: Service Date/Time: Thursday, October 26, 2017 16:34 - CONCLUSION: Cystic encephalomalacia involving large left middle cerebral artery ischemic infarction. There is a small focus of restricted diffusion in the posterior left frontal region without hemorrhage characteristic of extension of the infarct. Pansinusitis Soren Rose MD Radius/Ulna X-Ray 10/25/17 0000 Signed Impressions: Service Date/Time: Wednesday, October 25, 2017 20:03 - CONCLUSION: 1. No acute fracture or dislocation. No bony destructive changes. Carlton Early MD Objective Remarks GENERAL: This is a well-nourished, well-developed patient, in no apparent distress. CARDIOVASCULAR: Regular rate and regular rhythm without murmurs, gallops, or rubs. RESPIRATORY: Clear to auscultation. Breath sounds equal bilaterally. No wheezes , rales, or rhonchi. GASTROINTESTINAL: Abdomen soft, non-tender, nondistended. Normal, active bowel sounds MUSCULOSKELETAL: Extremities without clubbing, cyanosis, or edema. NEURO: Awake and alert with dysphasia. Procedures none Medications and IVs Inpatient Medications Acetaminophen 100 ml @ 400 mls/hr Q8H PRN IV fever if not taking PO ; Start at 16:45 Acetaminophen (Tylenol) 650 mg Q6H PRN PO FEVER/PAIN SCALE 1 TO 2 Last administered on 11/04/17at 17:50; Start 10/25/17 at 20:15 Acetaminophen/ Hydrocodone Bitart ([place] 5-325 Mg) 1 tab Q4H PRN PO PAIN SCALE 5 TO 10 Last administered on 12/23/17at 09:55; Start 10/25/17 at 20:15 Acetaminophen/ Hydrocodone Bitart ([place] 10-325 Mg) 1 tab Q4H PRN PO PAIN SCALE 6 TO 10 Last administered on 11/27/17at 23:04; Start 10/25/17 at 20:15; Stop 11/30/17 at 10:07; Status DC Albuterol Sulfate (Albuterol Neb) 0.63 mg Q6HR NEB NEB Last administered on at 10:19; Start 11/04/17 at 10:00; Stop 11/08/17 at 09:59; Status DC Aspirin (Aspirin Supp) 300 mg DAILY RECTAL Last administered on 11/03/17at 07:37 ; Start 10/28/17 at 09:00; Stop 11/03/17 at 15:12; Status DC Aspirin (Aspirin) 325 mg DAILY PO Last administered on 10/27/17at 09:33; Start at 09:00; Stop 10/28/17 at 08:00; Status DC Atorvastatin Calcium (Lipitor) 10 mg DAILY PO Last administered on 12/23/17at 09: 54; Start 10/26/17 at 09:00 Bisacodyl (Dulcolax Supp) 10 mg DAILY PRN RECTAL SEVERE CONSITIPATION; Start at 20:15 Carvedilol (Coreg) 3.125 mg Q12HR PO Last administered on 12/23/17at 09:55; Start 10/31/17 at 21:00; Status Future hold Clonidine (Catapres) 0.1 mg ONCE ONCE PO Last administered on 11/28/17at 00:20; Start 11/28/17 at 00:15; Stop 11/28/17 at 00:16; Status DC Clopidogrel Bisulfate (Plavix) 75 mg DAILY PO Last administered on 10/27/17at 13: 23; Start 10/27/17 at 13:00; Stop 10/27/17 at 20:57; Status DC Dextrose (D50w (Vial) Inj) 50 ml UNSCH PRN IV PUSH HYPOGLYCEMIA-SEE COMMENTS; Start 10/27/17 at 21:00; Stop 11/02/17 at 11:35; Status DC Diazepam (Valium) 5 mg Q12HR PO Last administered on 12/16/17at 20:43; Start 10/25/17 at 21:00; Stop 12/17/17 at 11:01; Status DC Enalaprilat (Vasotec Inj) 2.5 mg Q6H PRN IV PUSH SBP>160, DBP>90 Last administered on 12/13/17at 10:12; Start 12/07/17 at 11:15 Glucagon (Glucagon Inj) 1 mg UNSCH PRN OTHER HYPOGLYCEMIA-SEE COMMENTS; Start 10/27/17 at 21:00; Stop 11/02/17 at 11:35; Status DC Haloperidol (Haldol) 2 mg TID PRN PO AGITATION AND/OR HALLUCINATION; Start at 11:15; Stop 12/07/17 at 15:36; Status DC Haloperidol Lactate (Haldol Inj) 2 mg Q8H PRN IM severe agitation ; Start at 12:30; Stop 10/31/17 at 15:05; Status DC Haloperidol Lactate (Haldol Lactate Liq) 2 mg BID PO Last administered on at 09:54; Start 12/07/17 at 21:00 Heparin Sodium (Porcine) (Heparin Inj) 5,000 units Q12HR SQ Last administered on 10/27/17at 20:40; Start 10/27/17 at 21:00; Stop 10/27/17 at 21:00; Status DC Heparin Sodium/ Dextrose 250 ml @ 7 mls/hr TITRATE PRN IV Coagulation Management Last administered on 11/02/17at 12:05; Start 10/27/17 at 22:30; Stop at 15:02; Status DC Hydralazine HCl (Apresoline) 10 mg Q6HR PRN PO SBP>160, DBP>90; Start 12/07/17 at 11:15 Insulin Aspart (NovoLOG SUPPLEMENTAL SCALE) 1 ACHS SQ ; Start 10/27/17 at 21:00; Stop 11/02/17 at 11:35; Status DC Lactobacillus Acidophilus (Lactinex) 1 tab Q12HR PO Last administered on at 09:55; Start 12/11/17 at 21:00 Lactulose (Lactulose Liq) 30 ml DAILY PRN PO SEVERE CONSITIPATION Last administered on 10/31/17at 08:40; Start 10/25/17 at 20:15 Levetriacetam (Keppra Liq) 1,000 mg Q12HR PO Last administered on 12/23/17at 09: 55; Start 11/29/17 at 09:00 Levetriacetam (Keppra) 1,000 mg Q12HR PO Last administered on 11/27/17at 22:57; Start 10/29/17 at 21:00; Stop 11/28/17 at 23:02; Status DC Levetriacetam 500 mg/Sodium Chloride 105 ml @ 420 mls/hr Q6H IV Last administered on 10/29/17at 11:03; Start 10/28/17 at 04:00; Stop 10/29/17 at 13:57; Status DC Lisinopril (Prinivil) 5 mg BID PO Last administered on 12/23/17at 09:54; Start at 21:00 Lorazepam (Ativan Inj) 1 mg Q6HR PRN IV PUSH SEIZURES; Start 10/26/17 at 15:00 Magnesium Hydroxide (Milk Of Magnesia Liq) 30 ml Q12H PRN PO Mild constipation Last administered on 11/11/17at 09:36; Start 10/25/17 at 20:15 Metoprolol Tartrate (Lopressor Inj) 5 mg ONCE ONCE IV PUSH Last administered on 10/25/17at 20:43; Start 10/25/17 at 20:30; Stop 10/25/17 at 20:31; Status DC Metronidazole 100 ml @ 100 mls/hr Q8H IV Last administered on 12/14/17at 03:12 ; Start 12/11/17 at 20:00; Stop 12/14/17 at 12:48; Status DC Metronidazole (Flagyl) 500 mg ONCE ONCE PO Last administered on 11/04/17at 21: 33; Start 11/04/17 at 20:00; Stop 11/04/17 at 20:01; Status DC Miscellaneous (Pill Splitter) 1 ea UNSCH PRN OTHER SEE LABEL COMMENTS; Start at 16:45 Morphine Sulfate (Morphine Inj) 2 mg Q4H PRN IV PAIN 6-10 IF NOT TOLERATING PO Last administered on 11/06/17at 17:48; Start 10/28/17 at 08:15; Stop 12/16/17 at 08:24; Status DC Olanzapine (ZyPREXA INJ) 10 mg Q12H PRN IM agitation Last administered on at 07:37; Start 11/01/17 at 13:15 Ondansetron HCl (Zofran Inj) 4 mg Q6H PRN IVP NAUSEA OR VOMITING; Start at 20:15 Patient Medication Teaching (Coumadin Booklet) 1 ONCE ONCE OTHER Last administered on 11/02/17at 16:24; Start 11/02/17 at 16:00; Stop 11/02/17 at 16:01 ; Status DC Pharmacy Profile Note 0 ml @ 0 mls/hr UNSCH OTHER ; Start 11/02/17 at 08:45; Status Future hold Piperacillin Sod/ Tazobactam Sod 100 ml @ 200 mls/hr ONCE STAT IV Last administered on 11/04/17at 11:18; Start 11/04/17 at 10:08; Stop 11/04/17 at 10:37 ; Status DC Potassium Chloride/Sodium Chloride 1,000 ml @ 42 mls/hr [id number] IV Last administered on 11/07/17at 15:08; Start 11/03/17 at 14:00; Stop 11/08/17 at 09:07 ; Status DC Potassium Chloride (KCl Powder) 40 meq ONCE ONCE PO Last administered on at 09:11; Start 11/06/17 at 09:00; Stop 11/06/17 at 09:06; Status DC Quetiapine Fumarate (SEROquel) 50 mg BID@09,12 PO Last administered on at 09:55; Start 11/01/17 at 09:00 Senna/Docusate Sodium (Aleah-Colace) 1 tab BID PO Last administered on 12/23/17at 09:54; Start 10/25/17 at 21:00 Sennosides (Senokot) 17.2 mg Q12H PRN PO Moderate constipation Last administered on 11/17/17at 10:02; Start 10/25/17 at 20:15 Sodium Chloride 1,000 ml @ 84 mls/hr [id number] IV Last administered on at 18:18; Start 12/11/17 at 17:00 Sodium Chloride (NS Flush) 2 ml BID IV FLUSH ; Start 11/04/17 at 21:00; Stop at 21:00; Status DC Vancomycin HCl (VANCOMYCIN for oral use only) 500 mg Q6H PO Last administered on 11/18/17at 17:47; Start 11/05/17 at 00:00; Stop 11/18/17 at 23:55; Status DC Vancomycin HCl (Vancomycin 25 Mg/ml Liq) 250 mg QID PO Last administered on 12/22at 20:00; Start 12/12/17 at 18:00; Stop 12/23/17 at 08:00; Status DC Vancomycin HCl 1000 mg/Sodium Chloride 250 ml @ 250 mls/hr Q24H IV ; Start at 12:00; Stop 11/05/17 at 12:00; Status DC Warfarin Sodium (Coumadin) 2 mg ONCE@1600 ONCE PO Last administered on at 15:51; Start 12/22/17 at 16:00; Stop 12/22/17 at 16:01; Status DC A/P Problem List: (1) Encephalopathy ICD Code: G93.40 - Encephalopathy, unspecified (2) CVA (cerebral vascular accident) ICD Code: I63.9 - Cerebral infarction, unspecified (3) HTN (hypertension) ICD Code: I10 - Essential (primary) hypertension (4) Tobacco abuse ICD Code: Z72.0 - Tobacco use Assessment and Plan A/P 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 - Continue Coumadin. Continue PT/OT. - pharmacist consulted and managing the Coumadin dosing. Seizure - Continue Keppra. Seizure precautions Hypertension -BP controlled. continue with current regimen. C. difficile colitis (hyper virulent strain) - s/p Flagyl. Patient currently on vancomycin; stop date; 12/23/17. Right heel wound. Consulted wound care, appreciate recommendations. Special mattress ordered. Bipolar disorder, agitation - Continue Seroquel. - seen by Psychiatry Cardiomyopathy - Continue beta evonne, JAYLEN inhibitor. Right subacute humeral fracture- occurred 09/30- ER - never got to see an Ortho referral from SNF -Orthopedic services saw patient, appreciate recommendations. -Nonoperative management, continue to keep position for healing. - NWB right UE - repeat XR in 2-3 weeks - PT - OP ff up with Ortho DVT prophylaxis - on Coumadin Discharge Planning dc planning in progress. Bobo Ridley MD Dec 23, 2017 10:47
--- NOTE | 2017-12-23 13:47 | HHI.HCPN ---
Reason for visit a. To assist with evaluation and management of symptoms including:Pain, agitation, physical deconditioning b. To assist medical decision maker(s) with: better understanding of current medical conditions; weighing benefits/burdens of medical treatment options; making medical treatment decisions. Subjective/Interval History Patient is awake, alert in bed, denies pain by shaking head- guarding her right arm. Pain managed with hydrocodone/acetaminophen 5/325 q 4 hrs prn. Required 6 prn doses in 24 hours. Patient has expressive aphasia. Patient is calm. Vital signs stable. No recent laboratory workup in imaging. Physical therapy and Occupational Therapy following with patient. Case management assisting with placement. . Family/friend interactions Family at bedside. . Advance Directives Living Will: Never completed Health Care Surrogate: Never completed Durable Power of Field Radio Operator: Never completed Advance Directive Specifics Health Care Surrogate(s): Health Care Proxy- Raul Mohamud- [phone] . Objective Vital Signs Date Time Temp Pulse Resp B/P (MAP) Pulse Ox O2 Delivery O2 Flow Rate FiO2 12/23/17 12:05 98.2 81 16 146/70 (95) 97 12/23/17 08:21 97.7 72 16 162/70 (100) 98 12/23/17 05:24 98.2 70 17 159/67 (97) 99 12/23/17 00:45 97.7 78 17 147/72 (97) 92 12/22/17 19:40 98.5 92 20 123/56 (78) 98 12/22/17 16:30 97.7 95 18 125/64 (84) 98 Intake & Output 12/23/17 12/23/17 06:59 18:59 Intake Total 360 ml Balance 360 ml Intake Oral 360 ml # Voids 3 1 # Bowel Movements 1 Physical Exam CONSTITUTIONAL/GENERAL: This is an adequately nourished patient, in no apparent distress. Denies pain. TUBES/LINES/DRAINS: SKIN: No jaundice, rashes, or lesions. Ecchymoses on upper extremities. No wounds seen anteriorly. Skin temperature appropriate. Not diaphoretic. HEAD: Atraumatic. Normocephalic. EYES: Pupils equal and round and reactive. Extraocular motions intact. No scleral icterus. No injection or drainage. Fundi not examined. ENT: Hearing grossly normal. Nose without bleeding or purulent drainage. Moist oral mucosa. NECK: Trachea midline. Supple, nontender. CARDIOVASCULAR: Regular rate and rhythm without murmurs, gallops, or rubs. No JVD. Peripheral pulses symmetric. RESPIRATORY/CHEST: Symmetric, unlabored respirations. Clear to auscultation. Breath sounds equal bilaterally. No wheezes, rales, or rhonchi. GASTROINTESTINAL: Abdomen soft, non-tender, nondistended. No guarding. Bowel sounds present. GENITOURINARY: Without palpable bladder distension. Incontinent of bladder. MUSCULOSKELETAL: Extremities without clubbing, cyanosis, or edema. No joint tenderness or effusion noted. No calf tenderness. No mottling or clubbing. NEUROLOGICAL:Awake, alert with expressive aphasia. Follows simple commands with LUE and LLE. Right side is flaccid PSYCHIATRIC:Patient is awake and calm. No obvious anxiety/depression. no apparent hallucinations or other psychotic thought process. . Diagnostic Tests Laboratory Laboratory Tests Test 12/21/17 07:00 12/22/17 07:17 12/23/17 07:53 Prothrombin Time 14.0 SEC (9.8-11.6) 17.6 SEC (9.8-11.6) Prothromb Time International Ratio 1.4 RATIO 1.7 RATIO Assessment and Plan Disease Oriented Problem List: (1) CVA (cerebral vascular accident) (2) HTN (hypertension) (3) Encephalopathy (4) Tobacco abuse Symptom Scale: (1) Pain 0-10 Scale: Unable to quantify Comment: Pain to RUE. Humerus X ray on 12/02/17 revealed Fracture through the proximal humerus. Periosteal bone formation suggesting healing. . (2) Physical deconditioning 0-10 Scale: Unable to quantify Comment: Progressive. . Pertinent Non-Medical Issues Psychosocial:Patient was born in [facility]. She is . Patient graduated from college and has a bachelor's degree in education. 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 Spiritual:Patient is Episcopal Legal: Patient does not have advanced directives. Ethical issues impacting care: None identified at this time. . Important Contacts Son- Raul Bennett- [phone] Sister Yann Fernandeztesha [phone] Sister Michelle Ry [phone] . Prognosis Ms Carbo is a 67 years old female with a past medical history CVA with residual aphasia, right hemiplegia and left hemiparesis, hypertension, Diabetes Mellitus- Type 2, anxiety disorder, bipolar disorder, osteoarthritis and insomnia. Patient was admitted from 05/20/17-05/29/17 and treated for an acute left frontoparietal CVA .She was discharged to a SNF [facility]. Patient was transported by EMS to the ER on 10/25/17 with a complaint of altered mental status. Patient was found slumped over after she had wheeled herself outside to smoke, and ecchymosis to right humerus and forearm. Clinical course complicated with evolving left hemisphere CVA, agitation, and delirium. Given ongoing comorbidities, patient remains at high risk for further complications, deterioration and decline. . Code Status: Full Code Plan PLAN: Legal decision maker: Patient has a history of stroke with expressive aphasia , agitation and altered mental status during this hospitalization. Patient is not able to participate in making her own medical decisions. Patient has an adult son who according to [place] Statute will serve as patient`s Health Care Proxy. Goals: Aggressive CODE STATUS: Full Code SYMPTOMS: * Pain : to RUE. Humerus X ray on 12/02/17 revealed Fracture through the proximal humerus. Periosteal bone formation suggesting healing. Occupational therapy consulted. Patient has Hydrocodone/acetaminophen 5/325 q 4 hrs prn pain. Patient required x6 doses prn in 24hrs.Patient denies pain. No recommendations. * Agitation: Multifactorial. History of bipolar disorder and CVA with expressive aphasia. Psychiatry consulted. Seroquel 50mg BID, Haldol 2mg BID. Patient has Zyprexa 10mg q 12hrs prn. Last Zyprexa dose received 11/03/18Seems to be compounded with inability to communicate her needs due to expressive aphasia. No recommendations at this time. Valium discontinued 12/17/17. Patient is calm. * Physical deconditioning: Progressive. Patient has a history CVA with Residual Aphasia,Right Hemiplegia and Left Hemiparesis. During her admission in January 2017 patient weight 79.7kgs and on October 28, 2017 patient weighed 59.9kgs. Physical therapy consulted. Occupational and physical therapy following. Patient's participation is limited due to expressive aphasia, inability to comprehend complex commands, right hemiplegia and left hemiparesis. No recommendations at this time. Palliative care will continue to follow the patient during hospital course as condition evolves, to assist patient/decision-maker with understanding of their medical conditions, weighing benefits/burdens of treatment options, for clarification of goals of treatment. Additionally will assist with any symptoms of palliative concern Attestation To help prompt me to consider important information that might be impacting today's encounter and assessment, information from prior notes written by myself or my colleagues may have been "brought forward" into today's note. My signature on this note, however, is an attestation that I personally performed the exam, history, and/or decision-making noted today, and, unless otherwise indicated, the interactions with patient, family, and staff as well as the review of records all occurred today. I also attest that the listed assessment and stated plan reflect my best clinical judgment today based on the combination of historical information, prior notes, and today's exam/ interactions. When time spent is documented, it refers only to time spent today by the signer, or if indicated, combined time spent today by collaborating physician/nurse practitioner. Susan Dawson Dec 23, 2017 13:47
[2017-12-23 16:09] LABS: INTERNATIONAL NORMALIZED RATIO 1.8 RATIO; PROTHROMBIN TIME - PATIENT 18.6 SEC (9.8-11.6)
[2017-12-23] MEDS: WARFARIN SOD 4 MG TAB PO SCH (18:17)
[2017-12-24] VITALS (7 sets, daily range): BP systolic 100–162; BP diastolic 55–70; PULSE 70–96; RESP 18–20; TEMP 97.1–98.2; O2SAT 95–100
[2017-12-24] MEDS: ACETAMINOPHEN/HYDROcodone 325 MG/5 MG TAB PO PRN ×5 (02:33→22:00)
[2017-12-24 07:20] LABS: INTERNATIONAL NORMALIZED RATIO 1.7 RATIO; PROTHROMBIN TIME - PATIENT 16.9 SEC (9.8-11.6)
[2017-12-24] MEDS: levETIRAcetam 500 MG/5 ML UDC PO SCH ×2 (08:24→21:54)
[2017-12-24] MEDS: SODIUM CHLORIDE 0.9% FLUSH 10 ML FLUSH IV FLUSH SCH ×2 (08:24→21:00)
[2017-12-24] MEDS: QUEtiapine FUMARATE 25 MG TAB PO SCH ×2 (08:24→11:26)
[2017-12-24] MEDS: LACTOBACILLUS ACIDOPHILUS TAB PO SCH ×2 (08:24→21:53)
[2017-12-24] MEDS: HALOPERIDOL LACTATE ORAL CONC 10 MG/5 ML CUP PO SCH ×2 (08:24→21:53)
[2017-12-24] MEDS: DOCUSATE SODIUM 50 MG/SENNA 8.6 MG TAB PO SCH ×2 (08:24→21:00)
[2017-12-24] MEDS: LISINOPRIL 5 MG TAB PO SCH ×2 (08:24→21:53)
[2017-12-24] MEDS: ATORVASTATIN 10 MG TAB PO SCH (08:24)
[2017-12-24] MEDS: CARVEDILOL 3.125 MG TAB PO SCH ×2 (08:24→21:53)
--- NOTE | 2017-12-24 10:36 | HHI.PR ---
Subjective Remarks in no distress. denies pain. no new complaints. Objective Vitals Vital Signs Date Time Temp Pulse Resp B/P (MAP) Pulse Ox O2 Delivery O2 Flow Rate FiO2 12/24/17 08:22 97.8 80 20 162/69 (100) 100 12/24/17 08:18 16 12/24/17 04:51 97.9 73 20 150/67 (94) 100 12/24/17 00:00 97.1 96 18 100/70 (80) 99 12/23/17 20:11 96 12/23/17 20:00 98.4 101 20 111/68 (82) 100 12/23/17 16:59 97.3 98 16 134/67 (89) 97 12/23/17 12:05 98.2 81 16 146/70 (95) 97 I/O 12/23/17 12/23/17 12/23/17 12/24/17 12/24/17 12/24/17 07:00 15:00 23:00 07:00 15:00 23:00 Intake Total 360 ml 480 ml Balance 360 ml 480 ml Intake Oral 360 ml 480 ml # Voids 3 2 3 1 # Bowel Movements 1 1 1 Imaging Last Impressions Shoulder X-Ray 12/16/17 0000 Signed Impressions: Service Date/Time: Saturday, December 16, 2017 11:10 - CONCLUSION: Stable appearance to the subacute right proximal humeral neck fracture. Otherwise, no significant change is appreciated compared to the study from 2 weeks ago. George Jensen MD Chest X-Ray 12/11/17 0000 Signed Impressions: Service Date/Time: Monday, December 11, 2017 17:02 - CONCLUSION: The lungs are clear. Lionel Wood MD Humerus X-Ray 12/02/17 0000 Signed Impressions: Service Date/Time: Saturday, December 02, 2017 11:08 - CONCLUSION: 1. Fracture through the proximal humerus. There is periosteal bone formation suggesting healing. Nikolas Stewart MD Neck CTA 10/27/17 0000 Signed Impressions: Service Date/Time: Friday, October 27, 2017 17:42 - CONCLUSION: 1. Occluded left internal carotid artery 2. Mild narrowing at the origin of the right internal carotid artery measuring 30%%. 3. Patent vertebral arteries with good flow. Price Cee MD Head CTA 10/27/17 0000 Signed Impressions: Service Date/Time: Friday, October 27, 2017 17:42 - CONCLUSION: 1. Occluded intracranial segment of the left internal carotid artery. 2. Very scant flow in the left middle cerebral artery distribution with proximal MCA occlusion. 3. Evolving large left MCA infarct. Price Cee MD Head CT 10/27/17 0000 Signed Impressions: Service Date/Time: Friday, October 27, 2017 17:34 - CONCLUSION: 1. No evidence of acute right-sided infarction. Cystic encephalomalacia involving the left middle cerebral artery distribution unchanged 2. Pansinusitis Soren Rose MD Carotid Artery Ultrasound 10/27/17 0000 Signed Impressions: Service Date/Time: Friday, October 27, 2017 16:16 - CONCLUSION: 1. Findings of left carotid occlusion. CT angiography of the carotid arteries the brain is recommended for further evaluation Soren Rose MD Brain MRI 10/26/17 0000 Signed Impressions: Service Date/Time: Thursday, October 26, 2017 16:34 - CONCLUSION: Cystic encephalomalacia involving large left middle cerebral artery ischemic infarction. There is a small focus of restricted diffusion in the posterior left frontal region without hemorrhage characteristic of extension of the infarct. Pansinusitis Soren Rose MD Radius/Ulna X-Ray 10/25/17 0000 Signed Impressions: Service Date/Time: Wednesday, October 25, 2017 20:03 - CONCLUSION: 1. No acute fracture or dislocation. No bony destructive changes. Carlton Early MD Objective Remarks GENERAL: This is a well-nourished, well-developed patient, in no apparent distress. CARDIOVASCULAR: Regular rate and regular rhythm without murmurs, gallops, or rubs. RESPIRATORY: Clear to auscultation. Breath sounds equal bilaterally. No wheezes , rales, or rhonchi. GASTROINTESTINAL: Abdomen soft, non-tender, nondistended. Normal, active bowel sounds MUSCULOSKELETAL: Extremities without clubbing, cyanosis, or edema. NEURO: Awake and alert with dysphasia. Procedures none Medications and IVs Inpatient Medications Acetaminophen 100 ml @ 400 mls/hr Q8H PRN IV fever if not taking PO ; Start at 16:45 Acetaminophen (Tylenol) 650 mg Q6H PRN PO FEVER/PAIN SCALE 1 TO 2 Last administered on 11/04/17at 17:50; Start 10/25/17 at 20:15 Acetaminophen/ Hydrocodone Bitart ([place] 5-325 Mg) 1 tab Q4H PRN PO PAIN SCALE 5 TO 10 Last administered on 12/24/17at 06:24; Start 10/25/17 at 20:15 Acetaminophen/ Hydrocodone Bitart ([place] 10-325 Mg) 1 tab Q4H PRN PO PAIN SCALE 6 TO 10 Last administered on 11/27/17at 23:04; Start 10/25/17 at 20:15; Stop 11/30/17 at 10:07; Status DC Albuterol Sulfate (Albuterol Neb) 0.63 mg Q6HR NEB NEB Last administered on at 10:19; Start 11/04/17 at 10:00; Stop 11/08/17 at 09:59; Status DC Aspirin (Aspirin Supp) 300 mg DAILY RECTAL Last administered on 11/03/17at 07:37 ; Start 10/28/17 at 09:00; Stop 11/03/17 at 15:12; Status DC Aspirin (Aspirin) 325 mg DAILY PO Last administered on 10/27/17at 09:33; Start at 09:00; Stop 10/28/17 at 08:00; Status DC Atorvastatin Calcium (Lipitor) 10 mg DAILY PO Last administered on 12/24/17at 08: 24; Start 10/26/17 at 09:00 Bisacodyl (Dulcolax Supp) 10 mg DAILY PRN RECTAL SEVERE CONSITIPATION; Start at 20:15 Carvedilol (Coreg) 3.125 mg Q12HR PO Last administered on 12/24/17at 08:24; Start 10/31/17 at 21:00; Status Future hold Clonidine (Catapres) 0.1 mg ONCE ONCE PO Last administered on 11/28/17at 00:20; Start 11/28/17 at 00:15; Stop 11/28/17 at 00:16; Status DC Clopidogrel Bisulfate (Plavix) 75 mg DAILY PO Last administered on 10/27/17at 13: 23; Start 10/27/17 at 13:00; Stop 10/27/17 at 20:57; Status DC Dextrose (D50w (Vial) Inj) 50 ml UNSCH PRN IV PUSH HYPOGLYCEMIA-SEE COMMENTS; Start 10/27/17 at 21:00; Stop 11/02/17 at 11:35; Status DC Diazepam (Valium) 5 mg Q12HR PO Last administered on 12/16/17at 20:43; Start 10/25/17 at 21:00; Stop 12/17/17 at 11:01; Status DC Enalaprilat (Vasotec Inj) 2.5 mg Q6H PRN IV PUSH SBP>160, DBP>90 Last administered on 12/13/17at 10:12; Start 12/07/17 at 11:15 Glucagon (Glucagon Inj) 1 mg UNSCH PRN OTHER HYPOGLYCEMIA-SEE COMMENTS; Start 10/27/17 at 21:00; Stop 11/02/17 at 11:35; Status DC Haloperidol (Haldol) 2 mg TID PRN PO AGITATION AND/OR HALLUCINATION; Start at 11:15; Stop 12/07/17 at 15:36; Status DC Haloperidol Lactate (Haldol Inj) 2 mg Q8H PRN IM severe agitation ; Start at 12:30; Stop 10/31/17 at 15:05; Status DC Haloperidol Lactate (Haldol Lactate Liq) 2 mg BID PO Last administered on at 08:24; Start 12/07/17 at 21:00 Heparin Sodium (Porcine) (Heparin Inj) 5,000 units Q12HR SQ Last administered on 10/27/17at 20:40; Start 10/27/17 at 21:00; Stop 10/27/17 at 21:00; Status DC Heparin Sodium/ Dextrose 250 ml @ 7 mls/hr TITRATE PRN IV Coagulation Management Last administered on 11/02/17at 12:05; Start 10/27/17 at 22:30; Stop at 15:02; Status DC Hydralazine HCl (Apresoline) 10 mg Q6HR PRN PO SBP>160, DBP>90; Start 12/07/17 at 11:15 Insulin Aspart (NovoLOG SUPPLEMENTAL SCALE) 1 ACHS SQ ; Start 10/27/17 at 21:00; Stop 11/02/17 at 11:35; Status DC Lactobacillus Acidophilus (Lactinex) 1 tab Q12HR PO Last administered on at 08:24; Start 12/11/17 at 21:00 Lactulose (Lactulose Liq) 30 ml DAILY PRN PO SEVERE CONSITIPATION Last administered on 10/31/17at 08:40; Start 10/25/17 at 20:15 Levetriacetam (Keppra Liq) 1,000 mg Q12HR PO Last administered on 12/24/17 08: 24; Start 11/29/17 at 09:00 Levetriacetam (Keppra) 1,000 mg Q12HR PO Last administered on 11/27/17at 22:57; Start 10/29/17 at 21:00; Stop 11/28/17 at 23:02; Status DC Levetriacetam 500 mg/Sodium Chloride 105 ml @ 420 mls/hr Q6H IV Last administered on 10/29/17at 11:03; Start 10/28/17 at 04:00; Stop 10/29/17 at 13:57; Status DC Lisinopril (Prinivil) 5 mg BID PO Last administered on 12/24/17at 08:24; Start at 21:00 Lorazepam (Ativan Inj) 1 mg Q6HR PRN IV PUSH SEIZURES; Start 10/26/17 at 15:00 Magnesium Hydroxide (Milk Of Magnesia Liq) 30 ml Q12H PRN PO Mild constipation Last administered on 11/11/17at 09:36; Start 10/25/17 at 20:15 Metoprolol Tartrate (Lopressor Inj) 5 mg ONCE ONCE IV PUSH Last administered on 10/25/17at 20:43; Start 10/25/17 at 20:30; Stop 10/25/17 at 20:31; Status DC Metronidazole 100 ml @ 100 mls/hr Q8H IV Last administered on 12/14/17at 03:12 ; Start 12/11/17 at 20:00; Stop 12/14/17 at 12:48; Status DC Metronidazole (Flagyl) 500 mg ONCE ONCE PO Last administered on 11/04/17at 21: 33; Start 11/04/17 at 20:00; Stop 11/04/17 at 20:01; Status DC Miscellaneous (Pill Splitter) 1 ea UNSCH PRN OTHER SEE LABEL COMMENTS; Start at 16:45 Morphine Sulfate (Morphine Inj) 2 mg Q4H PRN IV PAIN 6-10 IF NOT TOLERATING PO Last administered on 11/06/17at 17:48; Start 10/28/17 at 08:15; Stop 12/16/17 at 08:24; Status DC Olanzapine (ZyPREXA INJ) 10 mg Q12H PRN IM agitation Last administered on at 07:37; Start 11/01/17 at 13:15 Ondansetron HCl (Zofran Inj) 4 mg Q6H PRN IVP NAUSEA OR VOMITING; Start at 20:15 Patient Medication Teaching (Coumadin Booklet) 1 ONCE ONCE OTHER Last administered on 11/02/17at 16:24; Start 11/02/17 at 16:00; Stop 11/02/17 at 16:01 ; Status DC Pharmacy Profile Note 0 ml @ 0 mls/hr UNSCH OTHER ; Start 11/02/17 at 08:45; Status Future hold Piperacillin Sod/ Tazobactam Sod 100 ml @ 200 mls/hr ONCE STAT IV Last administered on 11/04/17at 11:18; Start 11/04/17 at 10:08; Stop 11/04/17 at 10:37 ; Status DC Potassium Chloride/Sodium Chloride 1,000 ml @ 42 mls/hr [id number] IV Last administered on 11/07/17at 15:08; Start 11/03/17 at 14:00; Stop 11/08/17 at 09:07 ; Status DC Potassium Chloride (KCl Powder) 40 meq ONCE ONCE PO Last administered on at 09:11; Start 11/06/17 at 09:00; Stop 11/06/17 at 09:06; Status DC Quetiapine Fumarate (SEROquel) 50 mg BID@09,12 PO Last administered on at 08:24; Start 11/01/17 at 09:00 Senna/Docusate Sodium (Ale[place]-Colace) 1 tab BID PO Last administered on 12/23/17at 09:54; Start 10/25/17 at 21:00 Sennosides (Senokot) 17.2 mg Q12H PRN PO Moderate constipation Last administered on 11/17/17at 10:02; Start 10/25/17 at 20:15 Sodium Chloride 1,000 ml @ 84 mls/hr [id number] IV Last administered on at 18:18; Start 12/11/17 at 17:00; Stop 12/23/17 at 10:48; Status DC Sodium Chloride (NS Flush) 2 ml BID IV FLUSH ; Start 11/04/17 at 21:00; Stop at 21:00; Status DC Vancomycin HCl (VANCOMYCIN for oral use only) 500 mg Q6H PO Last administered on 11/18/17at 17:47; Start 11/05/17 at 00:00; Stop 11/18/17 at 23:55; Status DC Vancomycin HCl (Vancomycin 25 Mg/ml Liq) 250 mg QID PO Last administered on 12/22at 20:00; Start 12/12/17 at 18:00; Stop 12/23/17 at 08:00; Status DC Vancomycin HCl 1000 mg/Sodium Chloride 250 ml @ 250 mls/hr Q24H IV ; Start at 12:00; Stop 11/05/17 at 12:00; Status DC Warfarin Sodium (Coumadin) 3 mg ONCE ONCE PO ; Start 12/24/17 at 16:00; Stop 12/24/17 at 16:01 A/P Problem List: (1) Encephalopathy ICD Code: G93.40 - Encephalopathy, unspecified (2) CVA (cerebral vascular accident) ICD Code: I63.9 - Cerebral infarction, unspecified (3) HTN (hypertension) ICD Code: I10 - Essential (primary) hypertension (4) Tobacco abuse ICD Code: Z72.0 - Tobacco use Assessment and Plan A/P 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 - Continue Coumadin. Continue PT/OT. - pharmacist consulted and managing the Coumadin dosing. Seizure - Continue Keppra. Seizure precautions Hypertension - continue with current regimen. C. difficile colitis (hyper virulent strain) - s/p Flagyl. Patient currently on vancomycin; stop date; 12/23/17. Right heel wound. Consulted wound care, appreciate recommendations. Special mattress ordered. Bipolar disorder, agitation - Continue Seroquel. - seen by Psychiatry Cardiomyopathy - Continue beta evonne, JAYLEN inhibitor. Right subacute humeral fracture- occurred 09/30- ER - never got to see an Ortho referral from SNF -Orthopedic services saw patient, appreciate recommendations. -Nonoperative management, continue to keep position for healing. - NWB right UE - repeat XR in 2-3 weeks - PT - OP ff up with Ortho DVT prophylaxis - on Coumadin Discharge Planning dc planning in progress. Bobo Ridley MD Dec 24, 2017 10:36
[2017-12-24] MEDS ORDERED: WARFARIN SOD 3 MG TAB PO ONE (16:00)
[2017-12-24] MEDS: WARFARIN SOD 4 MG TAB PO SCH (16:22)
[2017-12-25 01:49] VITALS: BP 141/65; PULSE 87; RESP 20; TEMP 98; O2SAT 99
[2017-12-25 06:10] VITALS: BP 160/70; PULSE 81; RESP 20; TEMP 97.5; O2SAT 95
[2017-12-25 08:23] VITALS: BP 165/71; PULSE 85; RESP 20; TEMP 98.4; O2SAT 94
[2017-12-25] MEDS: SODIUM CHLORIDE 0.9% FLUSH 10 ML FLUSH IV FLUSH SCH ×2 (09:00→20:57)
[2017-12-25] MEDS: ACETAMINOPHEN/HYDROcodone 325 MG/5 MG TAB PO PRN ×5 (09:24→22:17)
[2017-12-25] MEDS: HALOPERIDOL LACTATE ORAL CONC 10 MG/5 ML CUP PO SCH ×2 (09:28→20:57)
[2017-12-25] MEDS: QUEtiapine FUMARATE 25 MG TAB PO SCH ×2 (09:29→12:35)
[2017-12-25] MEDS: LISINOPRIL 5 MG TAB PO SCH ×2 (09:29→20:56)
[2017-12-25] MEDS: LACTOBACILLUS ACIDOPHILUS TAB PO SCH ×2 (09:29→20:56)
[2017-12-25] MEDS: DOCUSATE SODIUM 50 MG/SENNA 8.6 MG TAB PO SCH ×2 (09:29→20:56)
[2017-12-25] MEDS: CARVEDILOL 3.125 MG TAB PO SCH ×2 (09:29→20:57)
[2017-12-25] MEDS: ATORVASTATIN 10 MG TAB PO SCH (09:29)
[2017-12-25] MEDS: levETIRAcetam 500 MG/5 ML UDC PO SCH ×2 (09:29→20:56)
--- NOTE | 2017-12-25 11:04 | HHI.PR ---
Subjective Remarks in no acute distress. clinically no change. Objective Vitals Vital Signs Date Time Temp Pulse Resp B/P (MAP) Pulse Ox O2 Delivery O2 Flow Rate FiO2 12/25/17 10:45 20 12/25/17 08:23 98.4 85 20 165/71 (102) 94 12/25/17 06:10 97.5 81 20 160/70 (100) 95 12/25/17 01:49 98.0 87 20 141/65 (90) 99 12/24/17 21:45 76 142/67 (92) 98 12/24/17 21:00 98.2 78 18 131/59 (83) 95 12/24/17 16:00 97.9 70 20 153/67 (95) 96 12/24/17 12:00 97.9 80 20 106/55 (72) 96 I/O 12/24/17 12/24/17 12/24/17 12/25/17 12/25/17 12/25/17 07:00 15:00 23:00 07:00 15:00 23:00 Intake Total 600 ml 240 ml Balance 600 ml 240 ml Intake Oral 600 ml 240 ml # Voids 1 3 4 # Bowel Movements 1 2 1 Imaging Last Impressions Shoulder X-Ray 12/16/17 0000 Signed Impressions: Service Date/Time: Saturday, December 16, 2017 11:10 - CONCLUSION: Stable appearance to the subacute right proximal humeral neck fracture. Otherwise, no significant change is appreciated compared to the study from 2 weeks ago. George Jensen MD Chest X-Ray 12/11/17 0000 Signed Impressions: Service Date/Time: Monday, December 11, 2017 17:02 - CONCLUSION: The lungs are clear. Lionel Wood MD Humerus X-Ray 12/02/17 0000 Signed Impressions: Service Date/Time: Saturday, December 02, 2017 11:08 - CONCLUSION: 1. Fracture through the proximal humerus. There is periosteal bone formation suggesting healing. Nikolas Stewart MD Neck CTA 10/27/17 0000 Signed Impressions: Service Date/Time: Friday, October 27, 2017 17:42 - CONCLUSION: 1. Occluded left internal carotid artery 2. Mild narrowing at the origin of the right internal carotid artery measuring 30%%. 3. Patent vertebral arteries with good flow. Price Cee MD Head CTA 1/7/18 0000 Signed Impressions: Service Date/Time: Friday, October 27, 2017 17:42 - CONCLUSION: 1. Occluded intracranial segment of the left internal carotid artery. 2. Very scant flow in the left middle cerebral artery distribution with proximal MCA occlusion. 3. Evolving large left MCA infarct. Price Cee MD Head CT 10/27/17 0000 Signed Impressions: Service Date/Time: Friday, October 27, 2017 17:34 - CONCLUSION: 1. No evidence of acute right-sided infarction. Cystic encephalomalacia involving the left middle cerebral artery distribution unchanged 2. Pansinusitis Soren Rose MD Carotid Artery Ultrasound 10/27/17 0000 Signed Impressions: Service Date/Time: Friday, October 27, 2017 16:16 - CONCLUSION: 1. Findings of left carotid occlusion. CT angiography of the carotid arteries the brain is recommended for further evaluation Soren Rose MD Brain MRI 10/26/17 0000 Signed Impressions: Service Date/Time: Thursday, October 26, 2017 16:34 - CONCLUSION: Cystic encephalomalacia involving large left middle cerebral artery ischemic infarction. There is a small focus of restricted diffusion in the posterior left frontal region without hemorrhage characteristic of extension of the infarct. Pansinusitis Soren Rose MD Radius/Ulna X-Ray 10/25/17 0000 Signed Impressions: Service Date/Time: Wednesday, October 25, 2017 20:03 - CONCLUSION: 1. No acute fracture or dislocation. No bony destructive changes. Carlton Early MD Objective Remarks GENERAL: This is a well-nourished, well-developed patient, in no apparent distress. CARDIOVASCULAR: Regular rate and regular rhythm without murmurs, gallops, or rubs. RESPIRATORY: Clear to auscultation. Breath sounds equal bilaterally. No wheezes , rales, or rhonchi. GASTROINTESTINAL: Abdomen soft, non-tender, nondistended. Normal, active bowel sounds MUSCULOSKELETAL: Extremities without clubbing, cyanosis, or edema. NEURO: Awake and alert with dysphasia. Procedures none Medications and IVs Inpatient Medications Acetaminophen 100 ml @ 400 mls/hr Q8H PRN IV fever if not taking PO ; Start at 16:45 Acetaminophen (Tylenol) 650 mg Q6H PRN PO FEVER/PAIN SCALE 1 TO 2 Last administered on 11/04/17at 17:50; Start 10/25/17 at 20:15 Acetaminophen/ Hydrocodone Bitart ([place] 5-325 Mg) 1 tab Q4H PRN PO PAIN SCALE 5 TO 10 Last administered on 12/25/17at 09:24; Start 10/25/17 at 20:15 Acetaminophen/ Hydrocodone Bitart ([place] 10-325 Mg) 1 tab Q4H PRN PO PAIN SCALE 6 TO 10 Last administered on 11/27/17at 23:04; Start 10/25/17 at 20:15; Stop 11/30/17 at 10:07; Status DC Albuterol Sulfate (Albuterol Neb) 0.63 mg Q6HR NEB NEB Last administered on 10:19; Start 11/04/17 at 10:00; Stop 11/08/17 at 09:59; Status DC Aspirin (Aspirin Supp) 300 mg DAILY RECTAL Last administered on 11/03/17at 07:37 ; Start 10/28/17 at 09:00; Stop 11/03/17 at 15:12; Status DC Aspirin (Aspirin) 325 mg DAILY PO Last administered on 10/27/17at 09:33; Start at 09:00; Stop 10/28/17 at 08:00; Status DC Atorvastatin Calcium (Lipitor) 10 mg DAILY PO Last administered on 12/25/17 09: 29; Start 10/26/17 at 09:00 Bisacodyl (Dulcolax Supp) 10 mg DAILY PRN RECTAL SEVERE CONSITIPATION; Start at 20:15 Carvedilol (Coreg) 3.125 mg Q12HR PO Last administered on 12/25/17at 09:29; Start 10/31/17 at 21:00; Status Future hold Clonidine (Catapres) 0.1 mg ONCE ONCE PO Last administered on 11/28/17at 00:20; Start 11/28/17 at 00:15; Stop 11/28/17 at 00:16; Status DC Clopidogrel Bisulfate (Plavix) 75 mg DAILY PO Last administered on 10/27/17at 13: 23; Start 10/27/17 at 13:00; Stop 10/27/17 at 20:57; Status DC Dextrose (D50w (Vial) Inj) 50 ml UNSCH PRN IV PUSH HYPOGLYCEMIA-SEE COMMENTS; Start 10/27/17 at 21:00; Stop 11/02/17 at 11:35; Status DC Diazepam (Valium) 5 mg Q12HR PO Last administered on 12/16/17at 20:43; Start 10/25/17 at 21:00; Stop 12/17/17 at 11:01; Status DC Enalaprilat (Vasotec Inj) 2.5 mg Q6H PRN IV PUSH SBP>160, DBP>90 Last administered on 12/13/17at 10:12; Start 12/07/17 at 11:15 Glucagon (Glucagon Inj) 1 mg UNSCH PRN OTHER HYPOGLYCEMIA-SEE COMMENTS; Start 10/27/17 at 21:00; Stop 11/02/17 at 11:35; Status DC Haloperidol (Haldol) 2 mg TID PRN PO AGITATION AND/OR HALLUCINATION; Start at 11:15; Stop 12/07/17 at 15:36; Status DC Haloperidol Lactate (Haldol Inj) 2 mg Q8H PRN IM severe agitation ; Start at 12:30; Stop 10/31/17 at 15:05; Status DC Haloperidol Lactate (Haldol Lactate Liq) 2 mg BID PO Last administered on at 09:28; Start 12/07/17 at 21:00 Heparin Sodium (Porcine) (Heparin Inj) 5,000 units Q12HR SQ Last administered on 10/27/17at 20:40; Start 10/27/17 at 21:00; Stop 10/27/17 at 21:00; Status DC Heparin Sodium/ Dextrose 250 ml @ 7 mls/hr TITRATE PRN IV Coagulation Management Last administered on 11/02/17at 12:05; Start 10/27/17 at 22:30; Stop at 15:02; Status DC Hydralazine HCl (Apresoline) 10 mg Q6HR PRN PO SBP>160, DBP>90; Start 12/07/17 at 11:15 Insulin Aspart (NovoLOG SUPPLEMENTAL SCALE) 1 ACHS SQ ; Start 10/27/17 at 21:00; Stop 11/02/17 at 11:35; Status DC Lactobacillus Acidophilus (Lactinex) 1 tab Q12HR PO Last administered on 09:29; Start 12/11/17 at 21:00 Lactulose (Lactulose Liq) 30 ml DAILY PRN PO SEVERE CONSITIPATION Last administered on 10/31/17at 08:40; Start 10/25/17 at 20:15 Levetriacetam (Keppra Liq) 1,000 mg Q12HR PO Last administered on 12/25/17 09: 29; Start 11/29/17 at 09:00 Levetriacetam (Keppra) 1,000 mg Q12HR PO Last administered on 11/27/17 22:57; Start 10/29/17 at 21:00; Stop 11/28/17 at 23:02; Status DC Levetriacetam 500 mg/Sodium Chloride 105 ml @ 420 mls/hr Q6H IV Last administered on 10/29/17 11:03; Start 10/28/17 at 04:00; Stop 10/29/17 at 13:57; Status DC Lisinopril (Prinivil) 5 mg BID PO Last administered on 12/25/17 09:29; Start at 21:00 Lorazepam (Ativan Inj) 1 mg Q6HR PRN IV PUSH SEIZURES; Start 10/26/17 at 15:00 Magnesium Hydroxide (Milk Of Magnesia Liq) 30 ml Q12H PRN PO Mild constipation Last administered on 11/11/17at 09:36; Start 10/25/17 at 20:15 Metoprolol Tartrate (Lopressor Inj) 5 mg ONCE ONCE IV PUSH Last administered on 10/25/17at 20:43; Start 10/25/17 at 20:30; Stop 10/25/17 at 20:31; Status DC Metronidazole 100 ml @ 100 mls/hr Q8H IV Last administered on 12/14/17 03:12 ; Start 12/11/17 at 20:00; Stop 12/14/17 at 12:48; Status DC Metronidazole (Flagyl) 500 mg ONCE ONCE PO Last administered on 11/04/17at 21: 33; Start 11/04/17 at 20:00; Stop 11/04/17 at 20:01; Status DC Miscellaneous (Pill Splitter) 1 ea UNSCH PRN OTHER SEE LABEL COMMENTS; Start at 16:45 Morphine Sulfate (Morphine Inj) 2 mg Q4H PRN IV PAIN 6-10 IF NOT TOLERATING PO Last administered on 11/06/17at 17:48; Start 10/28/17 at 08:15; Stop 12/16/17 at 08:24; Status DC Olanzapine (ZyPREXA INJ) 10 mg Q12H PRN IM agitation Last administered on at 07:37; Start 11/01/17 at 13:15 Ondansetron HCl (Zofran Inj) 4 mg Q6H PRN IVP NAUSEA OR VOMITING; Start at 20:15 Patient Medication Teaching (Coumadin Booklet) 1 ONCE ONCE OTHER Last administered on 11/02/17at 16:24; Start 11/02/17 at 16:00; Stop 11/02/17 at 16:01 ; Status DC Pharmacy Profile Note 0 ml @ 0 mls/hr UNSCH OTHER ; Start 11/02/17 at 08:45; Status Future hold Piperacillin Sod/ Tazobactam Sod 100 ml @ 200 mls/hr ONCE STAT IV Last administered on 11/04/17at 11:18; Start 11/04/17 at 10:08; Stop 11/04/17 at 10:37 ; Status DC Potassium Chloride/Sodium Chloride 1,000 ml @ 42 mls/hr [id number] IV Last administered on 11/07/17at 15:08; Start 11/03/17 at 14:00; Stop 11/08/17 at 09:07 ; Status DC Potassium Chloride (KCl Powder) 40 meq ONCE ONCE PO Last administered on at 09:11; Start 11/06/17 at 09:00; Stop 11/06/17 at 09:06; Status DC Quetiapine Fumarate (SEROquel) 50 mg BID@09,12 PO Last administered on 09:29; Start 11/01/17 at 09:00 Senna/Docusate Sodium ([place]-Colace) 1 tab BID PO Last administered on 12/25/17 09:29; Start 10/25/17 at 21:00 Sennosides (Senokot) 17.2 mg Q12H PRN PO Moderate constipation Last administered on 11/17/17at 10:02; Start 10/25/17 at 20:15 Sodium Chloride 1,000 ml @ 84 mls/hr [id number] IV Last administered on at 18:18; Start 12/11/17 at 17:00; Stop 12/23/17 at 10:48; Status DC Sodium Chloride (NS Flush) 2 ml BID IV FLUSH ; Start 11/04/17 at 21:00; Stop at 21:00; Status DC Vancomycin HCl (VANCOMYCIN for oral use only) 500 mg Q6H PO Last administered on 11/18/17at 17:47; Start 11/05/17 at 00:00; Stop 11/18/17 at 23:55; Status DC Vancomycin HCl (Vancomycin 25 Mg/ml Liq) 250 mg QID PO Last administered on 12/22at 20:00; Start 12/12/17 at 18:00; Stop 12/23/17 at 08:00; Status DC Vancomycin HCl 1000 mg/Sodium Chloride 250 ml @ 250 mls/hr Q24H IV ; Start at 12:00; Stop 11/05/17 at 12:00; Status DC Warfarin Sodium (Coumadin) 3 mg ONCE ONCE PO Last administered on 12/24/17at 16: 22; Start 12/24/17 at 16:00; Stop 12/24/17 at 16:01; Status DC A/P Problem List: (1) Encephalopathy ICD Code: G93.40 - Encephalopathy, unspecified (2) CVA (cerebral vascular accident) ICD Code: I63.9 - Cerebral infarction, unspecified (3) HTN (hypertension) ICD Code: I10 - Essential (primary) hypertension (4) Tobacco abuse ICD Code: Z72.0 - Tobacco use Assessment and Plan A/P 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 - Continue Coumadin. Continue PT/OT. - pharmacist consulted and managing the Coumadin dosing. Seizure - Continue Keppra. Seizure precautions Hypertension - continue with current regimen. C. difficile colitis (hyper virulent strain) - s/p Flagyl. Patient currently on vancomycin; stop date; 12/23/17. Right heel wound. Consulted wound care, appreciate recommendations. Special mattress ordered. Bipolar disorder, agitation - Continue Seroquel. - seen by Psychiatry Cardiomyopathy - Continue beta evonne, JAYLEN inhibitor. Right subacute humeral fracture- occurred 09/30- ER - never got to see an Ortho referral from SNF -Orthopedic services saw patient, appreciate recommendations. -Nonoperative management, continue to keep position for healing. - NWB right UE - repeat XR in 2-3 weeks - PT - OP ff up with Ortho DVT prophylaxis - on Coumadin Discharge Planning dc planning in progress. Bobo Ridley MD Dec 25, 2017 11:04
[2017-12-25 11:42] LABS: INTERNATIONAL NORMALIZED RATIO 1.7 RATIO; PROTHROMBIN TIME - PATIENT 17.4 SEC (9.8-11.6)
[2017-12-25 12:24] VITALS: BP 151/65; PULSE 88; RESP 20; TEMP 97.3; O2SAT 94
--- NOTE | 2017-12-25 15:22 | HHI.HCPN ---
Reason for visit a. To assist with evaluation and management of symptoms including:Pain, agitation, physical deconditioning b. To assist medical decision maker(s) with: better understanding of current medical conditions; weighing benefits/burdens of medical treatment options; making medical treatment decisions. Subjective/Interval History Patient seen in the presence of occupational therapist. Patient seems to be tolerating passive range of motion with OT. Patient was able to say "pain" and bedside RN aware- stated she will medicate patient. Pain managed with Hydrocodone/acetaminophen 5/325. Patient is also able to let staff know that she needs to be changed. Patient is alert, follows command with the LUE and LLE , flaccid on the right side. Vital signs stable. SBP 150s-160s. Physical therapy and Occupational Therapy following with patient. Case management assisting with placement. . Family/friend interactions No family at bedside. . Advance Directives Living Will: Never completed Health Care Surrogate: Never completed Durable Power of Pawn Broker: Never completed Advance Directive Specifics Health Care Surrogate(s): Health Care Proxy- Raul Mohamud- [phone] . Objective Vital Signs Date Time Temp Pulse Resp B/P (MAP) Pulse Ox O2 Delivery O2 Flow Rate FiO2 12/25/17 12:24 97.3 88 20 151/65 (93) 94 12/25/17 10:45 20 12/25/17 08:23 98.4 85 20 165/71 (102) 94 12/25/17 06:10 97.5 81 20 160/70 (100) 95 12/25/17 01:49 98.0 87 20 141/65 (90) 99 12/24/17 21:45 76 142/67 (92) 98 12/24/17 21:00 98.2 78 18 131/59 (83) 95 12/24/17 16:00 97.9 70 20 153/67 (95) 96 Intake & Output 12/25/17 12/25/17 07:00 19:00 Intake Total 240 ml 600 ml Balance 240 ml 600 ml Intake Oral 240 ml 600 ml # Voids 4 4 # Bowel Movements 2 1 Physical Exam CONSTITUTIONAL/GENERAL: This is an adequately nourished patient, in no apparent distress. Complaining of pain. TUBES/LINES/DRAINS: SKIN: No jaundice, rashes, or lesions. Ecchymoses on upper extremities. No wounds seen anteriorly. Skin temperature appropriate. Not diaphoretic. HEAD: Atraumatic. Normocephalic. EYES: Pupils equal and round and reactive. Extraocular motions intact. No scleral icterus. No injection or drainage. Fundi not examined. ENT: Hearing grossly normal. Nose without bleeding or purulent drainage. Moist oral mucosa. NECK: Trachea midline. Supple, nontender. CARDIOVASCULAR: Regular rate and rhythm without murmurs, gallops, or rubs. No JVD. Peripheral pulses symmetric. RESPIRATORY/CHEST: Symmetric, unlabored respirations. Clear to auscultation. Breath sounds equal bilaterally. No wheezes, rales, or rhonchi. GASTROINTESTINAL: Abdomen soft, non-tender, nondistended. No guarding. Bowel sounds present. GENITOURINARY: Without palpable bladder distension. Incontinent of bladder. MUSCULOSKELETAL: Extremities without clubbing, cyanosis, or edema. No joint tenderness or effusion noted. No calf tenderness. No mottling or clubbing. NEUROLOGICAL:Awake, alert with expressive aphasia. Follows simple commands with LUE and LLE. Right side is flaccid PSYCHIATRIC:Patient is awake and calm. No obvious anxiety/depression. no apparent hallucinations or other psychotic thought process. . Diagnostic Tests Laboratory Laboratory Tests Test 12/23/17 14:52 12/24/17 04:49 12/25/17 11:05 Prothrombin Time 18.6 SEC (9.8-11.6) 16.9 SEC (9.8-11.6) 17.4 SEC (9.8-11.6) Prothromb Time International Ratio 1.8 RATIO 1.7 RATIO 1.7 RATIO Assessment and Plan Disease Oriented Problem List: (1) CVA (cerebral vascular accident) (2) HTN (hypertension) (3) Encephalopathy (4) Tobacco abuse Symptom Scale: (1) Pain 0-10 Scale: Unable to quantify Comment: Pain to RUE. Humerus X ray on 12/02/17 revealed Fracture through the proximal humerus. Periosteal bone formation suggesting healing. . (2) Physical deconditioning 0-10 Scale: Unable to quantify Comment: Progressive. . Pertinent Non-Medical Issues Psychosocial:Patient was born in [facility]. She is . Patient graduated from college and has a bachelor's degree in education. 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 Spiritual:Patient is Alevism Legal: Patient does not have advanced directives. Ethical issues impacting care: None identified at this time. . Important Contacts Son- Raul Bennett- [phone] Sister Harvey Fernandez [phone] Sister Michelle Raza [phone] . Prognosis Ms Rodríguez is a 67 years old female with a past medical history CVA with residual aphasia, right hemiplegia and left hemiparesis, hypertension, Diabetes Mellitus- Type 2, anxiety disorder, bipolar disorder, osteoarthritis and insomnia. Patient was admitted from 05/20/17-05/29/17 and treated for an acute left frontoparietal CVA .She was discharged to a SNF [facility]. Patient was transported by EMS to the ER on 10/25/17 with a complaint of altered mental status. Patient was found slumped over after she had wheeled herself outside to smoke, and ecchymosis to right humerus and forearm. Clinical course complicated with evolving left hemisphere CVA, agitation, and delirium. Given ongoing comorbidities, patient remains at high risk for further complications, deterioration and decline. . Code Status: Full Code Plan PLAN: Legal decision maker: Patient has a history of stroke with expressive aphasia , agitation and altered mental status during this hospitalization. Patient is not able to participate in making her own medical decisions. Patient has an adult son who according to [place] Statute will serve as patient`s Health Care Proxy. Goals: Aggressive CODE STATUS: Full Code SYMPTOMS: * Pain : to RUE. Humerus X ray on 12/02/17 revealed Fracture through the proximal humerus. Periosteal bone formation suggesting healing. Occupational therapy consulted. Patient has Hydrocodone/acetaminophen 5/325 q 4 hrs prn pain. Patient required x4 doses prn in 24hrs.Patient denies pain. No recommendations. * Agitation: Multifactorial. History of bipolar disorder and CVA with expressive aphasia. Psychiatry consulted. Seroquel 50mg BID, Haldol 2mg BID. Patient has Zyprexa 10mg q 12hrs prn. Last Zyprexa dose received 11/03/18Seems to be compounded with inability to communicate her needs due to expressive aphasia. No recommendations at this time. Valium discontinued 12/17/17. Patient is calm. * Physical deconditioning: Progressive. Patient has a history CVA with Residual Aphasia,Right Hemiplegia and Left Hemiparesis. During her admission in January 2017 patient weight 79.7kgs and on October 28, 2017 patient weighed 59.9kgs. Physical therapy consulted. Occupational and physical therapy following. Patient's participation is limited due to expressive aphasia, inability to comprehend complex commands, right hemiplegia and left hemiparesis. No recommendations at this time. Palliative care will continue to follow the patient during hospital course as condition evolves, to assist patient/decision-maker with understanding of their medical conditions, weighing benefits/burdens of treatment options, for clarification of goals of treatment. Additionally will assist with any symptoms of palliative concern Attestation To help prompt me to consider important information that might be impacting today's encounter and assessment, information from prior notes written by myself or my colleagues may have been "brought forward" into today's note. My signature on this note, however, is an attestation that I personally performed the exam, history, and/or decision-making noted today, and, unless otherwise indicated, the interactions with patient, family, and staff as well as the review of records all occurred today. I also attest that the listed assessment and stated plan reflect my best clinical judgment today based on the combination of historical information, prior notes, and today's exam/ interactions. When time spent is documented, it refers only to time spent today by the signer, or if indicated, combined time spent today by collaborating physician/nurse practitioner. Susan Dawson Dec 25, 2017 15:22
[2017-12-25] MEDS ORDERED: WARFARIN SOD 3 MG TAB PO ONE (16:00)
[2017-12-25 16:27] VITALS: BP 135/68; PULSE 80; RESP 20; TEMP 97.2; O2SAT 94
[2017-12-25] MEDS: WARFARIN SOD 4 MG TAB PO SCH (16:30)
[2017-12-25 20:00] VITALS: BP 133/59; PULSE 78; RESP 18; TEMP 97.6; O2SAT 97
[2017-12-26] VITALS: BP 105/50; PULSE 74; RESP 18; TEMP 97.8; O2SAT 98
[2017-12-26 04:00] VITALS: BP 129/78; PULSE 67; RESP 17; TEMP 98.3; O2SAT 98
[2017-12-26] MEDS: ACETAMINOPHEN/HYDROcodone 325 MG/5 MG TAB PO PRN ×4 (04:03→21:03)
[2017-12-26 07:23] LABS: INTERNATIONAL NORMALIZED RATIO 2.1 RATIO; PROTHROMBIN TIME - PATIENT 21.1 SEC (9.8-11.6)
[2017-12-26] MEDS: SODIUM CHLORIDE 0.9% FLUSH 10 ML FLUSH IV FLUSH SCH ×2 (08:24→21:09)
[2017-12-26] MEDS: QUEtiapine FUMARATE 25 MG TAB PO SCH ×2 (08:25→11:53)
[2017-12-26] MEDS: levETIRAcetam 500 MG/5 ML UDC PO SCH ×2 (08:25→21:08)
[2017-12-26] MEDS: LACTOBACILLUS ACIDOPHILUS TAB PO SCH ×2 (08:25→21:09)
[2017-12-26] MEDS: ATORVASTATIN 10 MG TAB PO SCH (08:25)
[2017-12-26] MEDS: DOCUSATE SODIUM 50 MG/SENNA 8.6 MG TAB PO SCH ×2 (08:25→21:08)
[2017-12-26] MEDS: CARVEDILOL 3.125 MG TAB PO SCH ×2 (08:26→21:09)
[2017-12-26] MEDS: LISINOPRIL 5 MG TAB PO SCH ×2 (08:26→21:08)
[2017-12-26] MEDS: HALOPERIDOL LACTATE ORAL CONC 10 MG/5 ML CUP PO SCH ×2 (08:31→21:07)
--- NOTE | 2017-12-26 11:32 | HHI.PR ---
Subjective Remarks in no acute distress. clinically no change. Objective Vitals Vital Signs Date Time Temp Pulse Resp B/P (MAP) Pulse Ox O2 Delivery O2 Flow Rate FiO2 12/26/17 10:31 18 12/26/17 04:00 98.3 67 17 129/78 (95) 98 12/26/17 00:00 97.8 74 18 105/50 (68) 98 12/25/17 20:00 97.6 78 18 133/59 (83) 97 12/25/17 16:27 97.2 80 20 135/68 (90) 94 12/25/17 12:24 97.3 88 20 151/65 (93) 94 I/O 12/25/17 12/25/17 12/25/17 12/26/17 12/26/17 12/26/17 07:00 15:00 23:00 07:00 15:00 23:00 Intake Total 600 ml Balance 600 ml Intake Oral 600 ml # Voids 4 4 1 # Bowel Movements 1 1 1 Imaging Last Impressions Shoulder X-Ray 12/16/17 0000 Signed Impressions: Service Date/Time: Saturday, December 16, 2017 11:10 - CONCLUSION: Stable appearance to the subacute right proximal humeral neck fracture. Otherwise, no significant change is appreciated compared to the study from 2 weeks ago. George Jensen MD Chest X-Ray 12/11/17 0000 Signed Impressions: Service Date/Time: Monday, December 11, 2017 17:02 - CONCLUSION: The lungs are clear. Lionel Wood MD Humerus X-Ray 12/02/17 0000 Signed Impressions: Service Date/Time: Saturday, December 02, 2017 11:08 - CONCLUSION: 1. Fracture through the proximal humerus. There is periosteal bone formation suggesting healing. Nikolas Stewart MD Neck CTA 10/27/17 0000 Signed Impressions: Service Date/Time: Friday, October 27, 2017 17:42 - CONCLUSION: 1. Occluded left internal carotid artery 2. Mild narrowing at the origin of the right internal carotid artery measuring 30%%. 3. Patent vertebral arteries with good flow. Price Cee MD Head CTA 10/27/17 0000 Signed Impressions: Service Date/Time: Friday, October 27, 2017 17:42 - CONCLUSION: 1. Occluded intracranial segment of the left internal carotid artery. 2. Very scant flow in the left middle cerebral artery distribution with proximal MCA occlusion. 3. Evolving large left MCA infarct. Price eCe MD Head CT 10/27/17 0000 Signed Impressions: Service Date/Time: Friday, October 27, 2017 17:34 - CONCLUSION: 1. No evidence of acute right-sided infarction. Cystic encephalomalacia involving the left middle cerebral artery distribution unchanged 2. Pansinusitis Soren Rose MD Carotid Artery Ultrasound 10/27/17 0000 Signed Impressions: Service Date/Time: Friday, October 27, 2017 16:16 - CONCLUSION: 1. Findings of left carotid occlusion. CT angiography of the carotid arteries the brain is recommended for further evaluation Soren Rose MD Brain MRI 10/26/17 0000 Signed Impressions: Service Date/Time: Thursday, October 26, 2017 16:34 - CONCLUSION: Cystic encephalomalacia involving large left middle cerebral artery ischemic infarction. There is a small focus of restricted diffusion in the posterior left frontal region without hemorrhage characteristic of extension of the infarct. Pansinusitis Soren Rose MD Radius/Ulna X-Ray 10/25/17 0000 Signed Impressions: Service Date/Time: Wednesday, October 25, 2017 20:03 - CONCLUSION: 1. No acute fracture or dislocation. No bony destructive changes. Carlton Early MD Objective Remarks GENERAL: This is a well-nourished, well-developed patient, in no apparent distress. CARDIOVASCULAR: Regular rate and regular rhythm without murmurs, gallops, or rubs. RESPIRATORY: Clear to auscultation. Breath sounds equal bilaterally. No wheezes , rales, or rhonchi. GASTROINTESTINAL: Abdomen soft, non-tender, nondistended. Normal, active bowel sounds MUSCULOSKELETAL: Extremities without clubbing, cyanosis, or edema. NEURO: Awake and alert with dysphasia. Procedures none Medications and IVs Inpatient Medications Acetaminophen 100 ml @ 400 mls/hr Q8H PRN IV fever if not taking PO ; Start at 16:45 Acetaminophen (Tylenol) 650 mg Q6H PRN PO FEVER/PAIN SCALE 1 TO 2 Last administered on 11/04/17at 17:50; Start 10/25/17 at 20:15 Acetaminophen/ Hydrocodone Bitart (Fence 5-325 Mg) 1 tab Q4H PRN PO PAIN SCALE 5 TO 10 Last administered on 12/26/17at 09:23; Start 10/25/17 at 20:15 Acetaminophen/ Hydrocodone Bitart (Fence 10-325 Mg) 1 tab Q4H PRN PO PAIN SCALE 6 TO 10 Last administered on 11/27/17at 23:04; Start 10/25/17 at 20:15; Stop 11/30/17 at 10:07; Status DC Albuterol Sulfate (Albuterol Neb) 0.63 mg Q6HR NEB NEB Last administered on at 10:19; Start 11/04/17 at 10:00; Stop 11/08/17 at 09:59; Status DC Aspirin (Aspirin Supp) 300 mg DAILY RECTAL Last administered on 11/03/17at 07:37 ; Start 10/28/17 at 09:00; Stop 11/03/17 at 15:12; Status DC Aspirin (Aspirin) 325 mg DAILY PO Last administered on 10/27/17at 09:33; Start at 09:00; Stop 10/28/17 at 08:00; Status DC Atorvastatin Calcium (Lipitor) 10 mg DAILY PO Last administered on 12/26/17at 08: 25; Start 10/26/17 at 09:00 Bisacodyl (Dulcolax Supp) 10 mg DAILY PRN RECTAL SEVERE CONSITIPATION; Start at 20:15 Carvedilol (Coreg) 3.125 mg Q12HR PO Last administered on 12/26/17at 08:26; Start 10/31/17 at 21:00; Status Future hold Clonidine (Catapres) 0.1 mg ONCE ONCE PO Last administered on 11/28/17at 00:20; Start 11/28/17 at 00:15; Stop 11/28/17 at 00:16; Status DC Clopidogrel Bisulfate (Plavix) 75 mg DAILY PO Last administered on 10/27/17at 13: 23; Start 10/27/17 at 13:00; Stop 10/27/17 at 20:57; Status DC Dextrose (D50w (Vial) Inj) 50 ml UNSCH PRN IV PUSH HYPOGLYCEMIA-SEE COMMENTS; Start 10/27/17 at 21:00; Stop 11/02/17 at 11:35; Status DC Diazepam (Valium) 5 mg Q12HR PO Last administered on 12/16/17at 20:43; Start 10/25/17 at 21:00; Stop 12/17/17 at 11:01; Status DC Enalaprilat (Vasotec Inj) 2.5 mg Q6H PRN IV PUSH SBP>160, DBP>90 Last administered on 12/13/17at 10:12; Start 12/07/17 at 11:15 Glucagon (Glucagon Inj) 1 mg UNSCH PRN OTHER HYPOGLYCEMIA-SEE COMMENTS; Start 10/27/17 at 21:00; Stop 11/02/17 at 11:35; Status DC Haloperidol (Haldol) 2 mg TID PRN PO AGITATION AND/OR HALLUCINATION; Start at 11:15; Stop 12/07/17 at 15:36; Status DC Haloperidol Lactate (Haldol Inj) 2 mg Q8H PRN IM severe agitation ; Start at 12:30; Stop 10/31/17 at 15:05; Status DC Haloperidol Lactate (Haldol Lactate Liq) 2 mg BID PO Last administered on at 08:31; Start 12/07/17 at 21:00 Heparin Sodium (Porcine) (Heparin Inj) 5,000 units Q12HR SQ Last administered on 10/27/17at 20:40; Start 10/27/17 at 21:00; Stop 10/27/17 at 21:00; Status DC Heparin Sodium/ Dextrose 250 ml @ 7 mls/hr TITRATE PRN IV Coagulation Management Last administered on 11/02/17at 12:05; Start 10/27/17 at 22:30; Stop at 15:02; Status DC Hydralazine HCl (Apresoline) 10 mg Q6HR PRN PO SBP>160, DBP>90; Start 12/07/17 at 11:15 Insulin Aspart (NovoLOG SUPPLEMENTAL SCALE) 1 ACHS SQ ; Start 10/27/17 at 21:00; Stop 11/02/17 at 11:35; Status DC Lactobacillus Acidophilus (Lactinex) 1 tab Q12HR PO Last administered on at 08:25; Start 12/11/17 at 21:00 Lactulose (Lactulose Liq) 30 ml DAILY PRN PO SEVERE CONSITIPATION Last administered on 10/31/17at 08:40; Start 10/25/17 at 20:15 Levetriacetam (Keppra Liq) 1,000 mg Q12HR PO Last administered on 12/26/17at 08: 25; Start 11/29/17 at 09:00 Levetriacetam (Keppra) 1,000 mg Q12HR PO Last administered on 11/27/17at 22:57; Start 10/29/17 at 21:00; Stop 11/28/17 at 23:02; Status DC Levetriacetam 500 mg/Sodium Chloride 105 ml @ 420 mls/hr Q6H IV Last administered on 10/29/17 11:03; Start 10/28/17 at 04:00; Stop 10/29/17 at 13:57; Status DC Lisinopril (Prinivil) 5 mg BID PO Last administered on 12/26/17at 08:26; Start at 21:00 Lorazepam (Ativan Inj) 1 mg Q6HR PRN IV PUSH SEIZURES; Start 10/26/17 at 15:00 Magnesium Hydroxide (Milk Of Magneloy Liq) 30 ml Q12H PRN PO Mild constipation Last administered on 11/11/17at 09:36; Start 10/25/17 at 20:15 Metoprolol Tartrate (Lopressor Inj) 5 mg ONCE ONCE IV PUSH Last administered on 10/25/17at 20:43; Start 10/25/17 at 20:30; Stop 10/25/17 at 20:31; Status DC Metronidazole 100 ml @ 100 mls/hr Q8H IV Last administered on 12/14/17at 03:12 ; Start 12/11/17 at 20:00; Stop 12/14/17 at 12:48; Status DC Metronidazole (Flagyl) 500 mg ONCE ONCE PO Last administered on 11/04/17at 21: 33; Start 11/04/17 at 20:00; Stop 11/04/17 at 20:01; Status DC Miscellaneous (Pill Splitter) 1 ea UNSCH PRN OTHER SEE LABEL COMMENTS; Start at 16:45 Morphine Sulfate (Morphine Inj) 2 mg Q4H PRN IV PAIN 6-10 IF NOT TOLERATING PO Last administered on 11/06/17at 17:48; Start 10/28/17 at 08:15; Stop 12/16/17 at 08:24; Status DC Olanzapine (ZyPREXA INJ) 10 mg Q12H PRN IM agitation Last administered on at 07:37; Start 11/01/17 at 13:15 Ondansetron HCl (Zofran Inj) 4 mg Q6H PRN IVP NAUSEA OR VOMITING; Start at 20:15 Patient Medication Teaching (Coumadin Booklet) 1 ONCE ONCE OTHER Last administered on 11/02/17at 16:24; Start 11/02/17 at 16:00; Stop 11/02/17 at 16:01 ; Status DC Pharmacy Profile Note 0 ml @ 0 mls/hr UNSCH OTHER ; Start 11/02/17 at 08:45; Status Future hold Piperacillin Sod/ Tazobactam Sod 100 ml @ 200 mls/hr ONCE STAT IV Last administered on 11/04/17at 11:18; Start 11/04/17 at 10:08; Stop 11/04/17 at 10:37 ; Status DC Potassium Chloride/Sodium Chloride 1,000 ml @ 42 mls/hr [id number] IV Last administered on 11/07/17at 15:08; Start 11/03/17 at 14:00; Stop 11/08/17 at 09:07 ; Status DC Potassium Chloride (KCl Powder) 40 meq ONCE ONCE PO Last administered on at 09:11; Start 11/06/17 at 09:00; Stop 11/06/17 at 09:06; Status DC Quetiapine Fumarate (SEROquel) 50 mg BID@09,12 PO Last administered on at 08:25; Start 11/01/17 at 09:00 Senna/Docusate Sodium (Aleah-Colace) 1 tab BID PO Last administered on 12/26/17at 08:25; Start 10/25/17 at 21:00 Sennosides (Senokot) 17.2 mg Q12H PRN PO Moderate constipation Last administered on 11/17/17at 10:02; Start 10/25/17 at 20:15 Sodium Chloride 1,000 ml @ 84 mls/hr [id number] IV Last administered on at 18:18; Start 12/11/17 at 17:00; Stop 12/23/17 at 10:48; Status DC Sodium Chloride (NS Flush) 2 ml BID IV FLUSH ; Start 11/04/17 at 21:00; Stop at 21:00; Status DC Vancomycin HCl (VANCOMYCIN for oral use only) 500 mg Q6H PO Last administered on 11/18/17at 17:47; Start 11/05/17 at 00:00; Stop 11/18/17 at 23:55; Status DC Vancomycin HCl (Vancomycin 25 Mg/ml Liq) 250 mg QID PO Last administered on 12/22at 20:00; Start 12/12/17 at 18:00; Stop 12/23/17 at 08:00; Status DC Vancomycin HCl 1000 mg/Sodium Chloride 250 ml @ 250 mls/hr Q24H IV ; Start at 12:00; Stop 11/05/17 at 12:00; Status DC Warfarin Sodium (Coumadin) 3 mg ONCE ONCE PO Last administered on 12/25/17at 16: 30; Start 12/25/17 at 16:00; Stop 12/25/17 at 16:01; Status DC A/P Problem List: (1) Encephalopathy ICD Code: G93.40 - Encephalopathy, unspecified (2) CVA (cerebral vascular accident) ICD Code: I63.9 - Cerebral infarction, unspecified (3) HTN (hypertension) ICD Code: I10 - Essential (primary) hypertension (4) Tobacco abuse ICD Code: Z72.0 - Tobacco use Assessment and Plan A/P 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 - Continue Coumadin. Continue PT/OT. - pharmacist consulted and managing the Coumadin dosing. Seizure - Continue Keppra. Seizure precautions Hypertension - continue with current regimen. C. difficile colitis (hyper virulent strain) - s/p Flagyl. Patient currently on vancomycin; stop date; 12/23/17. Right heel wound. Consulted wound care, appreciate recommendations. Special mattress ordered. Bipolar disorder, agitation - Continue Seroquel. - seen by Psychiatry Cardiomyopathy - Continue beta evonne, JAYLEN inhibitor. Right subacute humeral fracture- occurred 09/30- ER - never got to see an Ortho referral from SNF -Orthopedic services saw patient, appreciate recommendations. -Nonoperative management, continue to keep position for healing. - NWB right UE - repeat XR in 2-3 weeks - PT - OP ff up with Ortho DVT prophylaxis - on Coumadin Discharge Planning dc planning in progress. Bobo Ridley MD Dec 26, 2017 11:32
[2017-12-26 12:26] VITALS: BP 112/58; PULSE 88; RESP 20; TEMP 98.4; O2SAT 98
--- NOTE | 2017-12-26 16:11 | HHI.HCPN ---
Reason for visit a. To assist with evaluation and management of symptoms including:Pain, agitation, physical deconditioning b. To assist medical decision maker(s) with: better understanding of current medical conditions; weighing benefits/burdens of medical treatment options; making medical treatment decisions. Subjective/Interval History Patient seen and examined in the room. Patient is awake, alert, denies pain and in no signs of distress or discomfort. Follows command with the left side, flaccid on right side. Patient has expressive aphasia, but was able to say "I am fine" today. Vital signs stable. Physical and Occupational Therapy following. Case management assisting with placement. Per CM note guardianship hearing is set for January 01 and [facility] may be able to accept the patient on January 02. . Family/friend interactions No family at bedside . Advance Directives Living Will: Never completed Health Care Surrogate: Never completed Durable Power of Piano Mechanic Apprentice: Never completed Advance Directive Specifics Health Care Surrogate(s): Health Care Proxy- Raul Mohamud- [phone] . Objective Vital Signs Date Time Temp Pulse Resp B/P (MAP) Pulse Ox O2 Delivery O2 Flow Rate FiO2 12/26/17 12:26 98.4 88 20 112/58 (76) 98 12/26/17 10:31 18 12/26/17 04:00 98.3 67 17 129/78 (95) 98 12/26/17 00:00 97.8 74 18 105/50 (68) 98 12/25/17 20:00 97.6 78 18 133/59 (83) 97 12/25/17 16:27 97.2 80 20 135/68 (90) 94 Intake & Output 12/26/17 12/26/17 07:00 19:00 # Voids 1 # Bowel Movements 2 Physical Exam CONSTITUTIONAL/GENERAL: This is an adequately nourished patient, in no apparent distress. Denies pain. TUBES/LINES/DRAINS: SKIN: No jaundice, rashes, or lesions. Ecchymoses on upper extremities. No wounds seen anteriorly. Skin temperature appropriate. Not diaphoretic. HEAD: Atraumatic. Normocephalic. EYES: Pupils equal and round and reactive. Extraocular motions intact. No scleral icterus. No injection or drainage. Fundi not examined. ENT: Hearing grossly normal. Nose without bleeding or purulent drainage. Moist oral mucosa. NECK: Trachea midline. Supple, nontender. CARDIOVASCULAR: Regular rate and rhythm without murmurs, gallops, or rubs. No JVD. Peripheral pulses symmetric. RESPIRATORY/CHEST: Symmetric, unlabored respirations. Clear to auscultation. Breath sounds equal bilaterally. No wheezes, rales, or rhonchi. GASTROINTESTINAL: Abdomen soft, non-tender, nondistended. No guarding. Bowel sounds present. GENITOURINARY: Without palpable bladder distension. MUSCULOSKELETAL: Extremities without clubbing, cyanosis, or edema. No joint tenderness or effusion noted. No calf tenderness. No mottling or clubbing. NEUROLOGICAL:Awake, alert with expressive aphasia. Follows simple commands with LUE and LLE. Right side is flaccid PSYCHIATRIC:Patient is awake and calm. No obvious anxiety/depression. no apparent hallucinations or other psychotic thought process. . Diagnostic Tests Laboratory Laboratory Tests Test 12/24/17 04:49 12/25/17 11:05 12/26/17 06:43 Prothrombin Time 16.9 SEC (9.8-11.6) 17.4 SEC (9.8-11.6) 21.1 SEC (9.8-11.6) Prothromb Time International Ratio 1.7 RATIO 1.7 RATIO 2.1 RATIO Assessment and Plan Disease Oriented Problem List: (1) CVA (cerebral vascular accident) (2) HTN (hypertension) (3) Encephalopathy (4) Tobacco abuse Symptom Scale: (1) Pain 0-10 Scale: Unable to quantify Comment: Pain to RUE. Humerus X ray on 12/02/17 revealed Fracture through the proximal humerus. Periosteal bone formation suggesting healing. . (2) Physical deconditioning 0-10 Scale: Unable to quantify Comment: Progressive. . Pertinent Non-Medical Issues Psychosocial:Patient was born in [facility]. She is . Patient graduated from college and has a bachelor's degree in education. 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 Spiritual:Patient is Zoroastrian Legal: Patient does not have advanced directives. Ethical issues impacting care: None identified at this time. . Important Contacts Son- Raul Bennett- [phone] Sister Harvey Fernandez [phone] Sister Michelle Ry [phone] . Prognosis Ms Carbo is a 67 years old female with a past medical history CVA with residual aphasia, right hemiplegia and left hemiparesis, hypertension, Diabetes Mellitus- Type 2, anxiety disorder, bipolar disorder, osteoarthritis and insomnia. Patient was admitted from 05/20/17-05/29/17 and treated for an acute left frontoparietal CVA .She was discharged to a SNF [facility]. Patient was transported by EMS to the ER on 10/25/17 with a complaint of altered mental status. Patient was found slumped over after she had wheeled herself outside to smoke, and ecchymosis to right humerus and forearm. Clinical course complicated with evolving left hemisphere CVA, agitation, and delirium. Given ongoing comorbidities, patient remains at high risk for further complications, deterioration and decline. . Code Status: Full Code Plan PLAN: Legal decision maker: Patient has a history of stroke with expressive aphasia , agitation and altered mental status during this hospitalization. Patient is not able to participate in making her own medical decisions. Patient has an adult son who according to [place] Statute will serve as patient`s Health Care Proxy. Goals: Aggressive CODE STATUS: Full Code SYMPTOMS: * Pain : to RUE. Humerus X ray on 12/02/17 revealed Fracture through the proximal humerus. Periosteal bone formation suggesting healing. Occupational therapy consulted. Patient has Hydrocodone/acetaminophen 5/325 q 4 hrs prn pain. .Patient denies pain. No recommendations. * Agitation: Multifactorial. History of bipolar disorder and CVA with expressive aphasia. Psychiatry consulted. Seroquel 50mg BID, Haldol 2mg BID. Patient has Zyprexa 10mg q 12hrs prn. Last Zyprexa dose received 11/03/17eems to be compounded with inability to communicate her needs due to expressive aphasia. No recommendations at this time. Patient is calm. * Physical deconditioning: Progressive. Patient has a history CVA with Residual Aphasia,Right Hemiplegia and Left Hemiparesis. During her admission in January 2017 patient weight 79.7kgs and on October 28, 2017 patient weighed 59.9kgs. Physical therapy consulted. Occupational and physical therapy following. Patient's participation is limited due to expressive aphasia, inability to comprehend complex commands, right hemiplegia and left hemiparesis. No recommendations at this time. Palliative care will continue to follow the patient during hospital course as condition evolves, to assist patient/decision-maker with understanding of their medical conditions, weighing benefits/burdens of treatment options, for clarification of goals of treatment. Additionally will assist with any symptoms of palliative concern Attestation To help prompt me to consider important information that might be impacting today's encounter and assessment, information from prior notes written by myself or my colleagues may have been "brought forward" into today's note. My signature on this note, however, is an attestation that I personally performed the exam, history, and/or decision-making noted today, and, unless otherwise indicated, the interactions with patient, family, and staff as well as the review of records all occurred today. I also attest that the listed assessment and stated plan reflect my best clinical judgment today based on the combination of historical information, prior notes, and today's exam/ interactions. When time spent is documented, it refers only to time spent today by the signer, or if indicated, combined time spent today by collaborating physician/nurse practitioner. Susan Dawson Dec 26, 2017 16:11
[2017-12-26] MEDS: WARFARIN SOD 4 MG TAB PO SCH (16:43)
[2017-12-26 20:53] VITALS: BP 139/60; PULSE 77; RESP 18; TEMP 98.2; O2SAT 94
[2017-12-27] VITALS (7 sets, daily range): BP systolic 125–178; BP diastolic 63–89; PULSE 72–94; RESP 18–20; TEMP 97.3–98.5; O2SAT 94–100
[2017-12-27] MEDS: ACETAMINOPHEN/HYDROcodone 325 MG/5 MG TAB PO PRN ×4 (04:01→21:16)
[2017-12-27] MEDS: SODIUM CHLORIDE 0.9% FLUSH 10 ML FLUSH IV FLUSH SCH ×2 (08:24→21:00)
[2017-12-27] MEDS: LACTOBACILLUS ACIDOPHILUS TAB PO SCH ×2 (08:25→21:15)
[2017-12-27] MEDS: LISINOPRIL 5 MG TAB PO SCH ×2 (08:25→21:16)
[2017-12-27] MEDS: DOCUSATE SODIUM 50 MG/SENNA 8.6 MG TAB PO SCH ×2 (08:25→21:00)
[2017-12-27] MEDS: QUEtiapine FUMARATE 25 MG TAB PO SCH ×2 (08:25→13:12)
[2017-12-27] MEDS: CARVEDILOL 3.125 MG TAB PO SCH ×2 (08:25→21:16)
[2017-12-27] MEDS: ATORVASTATIN 10 MG TAB PO SCH (08:25)
[2017-12-27] MEDS: levETIRAcetam 500 MG/5 ML UDC PO SCH ×2 (08:25→21:00)
[2017-12-27] MEDS: HALOPERIDOL LACTATE ORAL CONC 10 MG/5 ML CUP PO SCH ×2 (08:26→21:24)
--- NOTE | 2017-12-27 11:12 | HHI.PR ---
Subjective Remarks in no distress. clinically no change. Objective Vitals Vital Signs Date Time Temp Pulse Resp B/P (MAP) Pulse Ox O2 Delivery O2 Flow Rate FiO2 12/27/17 07:44 97.7 94 20 178/79 (112) 94 12/27/17 05:20 97.7 77 18 161/70 (100) 96 12/27/17 00:34 98.5 77 18 136/64 (88) 95 12/26/17 20:53 98.2 77 18 139/60 (86) 94 12/26/17 12:26 98.4 88 20 112/58 (76) 98 I/O 12/26/17 12/26/17 12/26/17 12/27/17 12/27/17 12/27/17 06:59 14:59 22:59 06:59 14:59 22:59 Intake Total 660 ml Balance 660 ml Intake Oral 660 ml # Voids 1 4 2 # Bowel Movements 2 3 Imaging Last Impressions Shoulder X-Ray 12/16/17 0000 Signed Impressions: Service Date/Time: Saturday, December 16, 2017 11:10 - CONCLUSION: Stable appearance to the subacute right proximal humeral neck fracture. Otherwise, no significant change is appreciated compared to the study from 2 weeks ago. George Jensen MD Chest X-Ray 12/11/17 0000 Signed Impressions: Service Date/Time: Monday, December 11, 2017 17:02 - CONCLUSION: The lungs are clear. Lionel Wood MD Humerus X-Ray 12/02/17 0000 Signed Impressions: Service Date/Time: Saturday, December 02, 2017 11:08 - CONCLUSION: 1. Fracture through the proximal humerus. There is periosteal bone formation suggesting healing. Nikolas Stewart MD Neck CTA 10/27/17 0000 Signed Impressions: Service Date/Time: Friday, October 27, 2017 17:42 - CONCLUSION: 1. Occluded left internal carotid artery 2. Mild narrowing at the origin of the right internal carotid artery measuring 30%%. 3. Patent vertebral arteries with good flow. Price Cee MD Head CTA 10/27/17 0000 Signed Impressions: Service Date/Time: Friday, October 27, 2017 17:42 - CONCLUSION: 1. Occluded intracranial segment of the left internal carotid artery. 2. Very scant flow in the left middle cerebral artery distribution with proximal MCA occlusion. 3. Evolving large left MCA infarct. Price Cee MD Head CT 10/27/17 0000 Signed Impressions: Service Date/Time: Friday, October 27, 2017 17:34 - CONCLUSION: 1. No evidence of acute right-sided infarction. Cystic encephalomalacia involving the left middle cerebral artery distribution unchanged 2. Pansinusitis Soren Rose MD Carotid Artery Ultrasound 10/27/17 0000 Signed Impressions: Service Date/Time: Friday, October 27, 2017 16:16 - CONCLUSION: 1. Findings of left carotid occlusion. CT angiography of the carotid arteries the brain is recommended for further evaluation Soren Rose MD Brain MRI 10/26/17 0000 Signed Impressions: Service Date/Time: Thursday, October 26, 2017 16:34 - CONCLUSION: Cystic encephalomalacia involving large left middle cerebral artery ischemic infarction. There is a small focus of restricted diffusion in the posterior left frontal region without hemorrhage characteristic of extension of the infarct. Pansinusitis Soren Rose MD Radius/Ulna X-Ray 10/25/17 0000 Signed Impressions: Service Date/Time: Wednesday, October 25, 2017 20:03 - CONCLUSION: 1. No acute fracture or dislocation. No bony destructive changes. Carlton Early MD Objective Remarks GENERAL: This is a well-nourished, well-developed patient, in no apparent distress. CARDIOVASCULAR: Regular rate and regular rhythm without murmurs, gallops, or rubs. RESPIRATORY: Clear to auscultation. Breath sounds equal bilaterally. No wheezes , rales, or rhonchi. GASTROINTESTINAL: Abdomen soft, non-tender, nondistended. Normal, active bowel sounds MUSCULOSKELETAL: Extremities without clubbing, cyanosis, or edema. NEURO: Awake and alert with dysphasia. Procedures none Medications and IVs Inpatient Medications Acetaminophen 100 ml @ 400 mls/hr Q8H PRN IV fever if not taking PO ; Start at 16:45 Acetaminophen (Tylenol) 650 mg Q6H PRN PO FEVER/PAIN SCALE 1 TO 2 Last administered on 11/04/17at 17:50; Start 10/25/17 at 20:15 Acetaminophen/ Hydrocodone Bitart ([place] 5-325 Mg) 1 tab Q4H PRN PO PAIN SCALE 5 TO 10 Last administered on 12/27/17at 08:24; Start 10/25/17 at 20:15 Acetaminophen/ Hydrocodone Bitart ([place] 10-325 Mg) 1 tab Q4H PRN PO PAIN SCALE 6 TO 10 Last administered on 11/27/17at 23:04; Start 10/25/17 at 20:15; Stop 11/30/17 at 10:07; Status DC Albuterol Sulfate (Albuterol Neb) 0.63 mg Q6HR NEB NEB Last administered on at 10:19; Start 11/04/17 at 10:00; Stop 11/08/17 at 09:59; Status DC Aspirin (Aspirin Supp) 300 mg DAILY RECTAL Last administered on 11/03/17at 07:37 ; Start 10/28/17 at 09:00; Stop 11/03/17 at 15:12; Status DC Aspirin (Aspirin) 325 mg DAILY PO Last administered on 10/27/17at 09:33; Start at 09:00; Stop 10/28/17 at 08:00; Status DC Atorvastatin Calcium (Lipitor) 10 mg DAILY PO Last administered on 12/27/17at 08: 25; Start 10/26/17 at 09:00 Bisacodyl (Dulcolax Supp) 10 mg DAILY PRN RECTAL SEVERE CONSITIPATION; Start at 20:15 Carvedilol (Coreg) 3.125 mg Q12HR PO Last administered on 12/27/17at 08:25; Start 10/31/17 at 21:00; Status Future hold Clonidine (Catapres) 0.1 mg ONCE ONCE PO Last administered on 11/28/17at 00:20; Start 11/28/17 at 00:15; Stop 11/28/17 at 00:16; Status DC Clopidogrel Bisulfate (Plavix) 75 mg DAILY PO Last administered on 10/27/17at 13: 23; Start 10/27/17 at 13:00; Stop 10/27/17 at 20:57; Status DC Dextrose (D50w (Vial) Inj) 50 ml UNSCH PRN IV PUSH HYPOGLYCEMIA-SEE COMMENTS; Start 10/27/17 at 21:00; Stop 11/02/17 at 11:35; Status DC Diazepam (Valium) 5 mg Q12HR PO Last administered on 12/16/17at 20:43; Start 10/25/17 at 21:00; Stop 12/17/17 at 11:01; Status DC Enalaprilat (Vasotec Inj) 2.5 mg Q6H PRN IV PUSH SBP>160, DBP>90 Last administered on 12/13/17at 10:12; Start 12/07/17 at 11:15 Glucagon (Glucagon Inj) 1 mg UNSCH PRN OTHER HYPOGLYCEMIA-SEE COMMENTS; Start 10/27/17 at 21:00; Stop 11/02/17 at 11:35; Status DC Haloperidol (Haldol) 2 mg TID PRN PO AGITATION AND/OR HALLUCINATION; Start at 11:15; Stop 12/07/17 at 15:36; Status DC Haloperidol Lactate (Haldol Inj) 2 mg Q8H PRN IM severe agitation ; Start at 12:30; Stop 10/31/17 at 15:05; Status DC Haloperidol Lactate (Haldol Lactate Liq) 2 mg BID PO Last administered on at 21:07; Start 12/07/17 at 21:00 Heparin Sodium (Porcine) (Heparin Inj) 5,000 units Q12HR SQ Last administered on 10/27/17at 20:40; Start 10/27/17 at 21:00; Stop 10/27/17 at 21:00; Status DC Heparin Sodium/ Dextrose 250 ml @ 7 mls/hr TITRATE PRN IV Coagulation Management Last administered on 11/02/17at 12:05; Start 10/27/17 at 22:30; Stop at 15:02; Status DC Hydralazine HCl (Apresoline) 10 mg Q6HR PRN PO SBP>160, DBP>90; Start 12/07/17 at 11:15 Insulin Aspart (NovoLOG SUPPLEMENTAL SCALE) 1 ACHS SQ ; Start 10/27/17 at 21:00; Stop 11/02/17 at 11:35; Status DC Lactobacillus Acidophilus (Lactinex) 1 tab Q12HR PO Last administered on at 08:25; Start 12/11/17 at 21:00 Lactulose (Lactulose Liq) 30 ml DAILY PRN PO SEVERE CONSITIPATION Last administered on 10/31/17at 08:40; Start 10/25/17 at 20:15 Levetriacetam (Keppra Liq) 1,000 mg Q12HR PO Last administered on 12/27/17 08: 25; Start 11/29/17 at 09:00 Levetriacetam (Keppra) 1,000 mg Q12HR PO Last administered on 11/27/17at 22:57; Start 10/29/17 at 21:00; Stop 11/28/17 at 23:02; Status DC Levetriacetam 500 mg/Sodium Chloride 105 ml @ 420 mls/hr Q6H IV Last administered on 10/29/17 11:03; Start 10/28/17 at 04:00; Stop 10/29/17 at 13:57; Status DC Lisinopril (Prinivil) 5 mg BID PO Last administered on 12/27/17 08:25; Start at 21:00 Lorazepam (Ativan Inj) 1 mg Q6HR PRN IV PUSH SEIZURES; Start 10/26/17 at 15:00 Magnesium Hydroxide (Milk Of Magneloy Liq) 30 ml Q12H PRN PO Mild constipation Last administered on 11/11/17at 09:36; Start 10/25/17 at 20:15 Metoprolol Tartrate (Lopressor Inj) 5 mg ONCE ONCE IV PUSH Last administered on 10/25/17at 20:43; Start 10/25/17 at 20:30; Stop 10/25/17 at 20:31; Status DC Metronidazole 100 ml @ 100 mls/hr Q8H IV Last administered on 12/14/17at 03:12 ; Start 12/11/17 at 20:00; Stop 12/14/17 at 12:48; Status DC Metronidazole (Flagyl) 500 mg ONCE ONCE PO Last administered on 11/04/17at 21: 33; Start 11/04/17 at 20:00; Stop 11/04/17 at 20:01; Status DC Miscellaneous (Pill Splitter) 1 ea UNSCH PRN OTHER SEE LABEL COMMENTS; Start at 16:45 Morphine Sulfate (Morphine Inj) 2 mg Q4H PRN IV PAIN 6-10 IF NOT TOLERATING PO Last administered on 11/06/17at 17:48; Start 10/28/17 at 08:15; Stop 12/16/17 at 08:24; Status DC Olanzapine (ZyPREXA INJ) 10 mg Q12H PRN IM agitation Last administered on at 07:37; Start 11/01/17 at 13:15 Ondansetron HCl (Zofran Inj) 4 mg Q6H PRN IVP NAUSEA OR VOMITING; Start at 20:15 Patient Medication Teaching (Coumadin Booklet) 1 ONCE ONCE OTHER Last administered on 11/02/17at 16:24; Start 11/02/17 at 16:00; Stop 11/02/17 at 16:01 ; Status DC Pharmacy Profile Note 0 ml @ 0 mls/hr UNSCH OTHER ; Start 11/02/17 at 08:45; Status Future hold Piperacillin Sod/ Tazobactam Sod 100 ml @ 200 mls/hr ONCE STAT IV Last administered on 11/04/17at 11:18; Start 11/04/17 at 10:08; Stop 11/04/17 at 10:37 ; Status DC Potassium Chloride/Sodium Chloride 1,000 ml @ 42 mls/hr [id number] IV Last administered on 11/07/17at 15:08; Start 11/03/17 at 14:00; Stop 11/08/17 at 09:07 ; Status DC Potassium Chloride (KCl Powder) 40 meq ONCE ONCE PO Last administered on at 09:11; Start 11/06/17 at 09:00; Stop 11/06/17 at 09:06; Status DC Quetiapine Fumarate (SEROquel) 50 mg BID@09,12 PO Last administered on at 08:25; Start 11/01/17 at 09:00 Senna/Docusate Sodium (Aleah-Colace) 1 tab BID PO Last administered on 12/27/17at 08:25; Start 10/25/17 at 21:00 Sennosides (Senokot) 17.2 mg Q12H PRN PO Moderate constipation Last administered on 11/17/17at 10:02; Start 10/25/17 at 20:15 Sodium Chloride 1,000 ml @ 84 mls/hr [id number] IV Last administered on at 18:18; Start 12/11/17 at 17:00; Stop 12/23/17 at 10:48; Status DC Sodium Chloride (NS Flush) 2 ml BID IV FLUSH ; Start 11/04/17 at 21:00; Stop at 21:00; Status DC Vancomycin HCl (VANCOMYCIN for oral use only) 500 mg Q6H PO Last administered on 11/18/17at 17:47; Start 11/05/17 at 00:00; Stop 11/18/17 at 23:55; Status DC Vancomycin HCl (Vancomycin 25 Mg/ml Liq) 250 mg QID PO Last administered on 12/22at 20:00; Start 12/12/17 at 18:00; Stop 12/23/17 at 08:00; Status DC Vancomycin HCl 1000 mg/Sodium Chloride 250 ml @ 250 mls/hr Q24H IV ; Start at 12:00; Stop 11/05/17 at 12:00; Status DC Warfarin Sodium (Coumadin) 3 mg ONCE ONCE PO Last administered on 12/25/17at 16: 30; Start 12/25/17 at 16:00; Stop 12/25/17 at 16:01; Status DC A/P Problem List: (1) Encephalopathy ICD Code: G93.40 - Encephalopathy, unspecified (2) CVA (cerebral vascular accident) ICD Code: I63.9 - Cerebral infarction, unspecified (3) HTN (hypertension) ICD Code: I10 - Essential (primary) hypertension (4) Tobacco abuse ICD Code: Z72.0 - Tobacco use Assessment and Plan A/P 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 - Continue Coumadin. Continue PT/OT. - pharmacist consulted and managing the Coumadin dosing. Seizure - Continue Keppra. Seizure precautions Hypertension - continue with current regimen. C. difficile colitis (hyper virulent strain) - finished the course of treatment with Vancomycin. Right heel wound. Consulted wound care, appreciate recommendations. Bipolar disorder, agitation - Continue Seroquel. - seen by Psychiatry Cardiomyopathy - Continue beta evonne, JAYLEN inhibitor. Right subacute humeral fracture- occurred 09/30- ER - -Orthopedic services saw patient, appreciate recommendations. -Nonoperative management, continue to keep position for healing. - NWB right UE - repeat XR in 1-2 weeks. - PT - OP ff up with Ortho DVT prophylaxis - on Coumadin Discharge Planning dc planning in progress. Bobo Ridley MD Dec 27, 2017 11:12
[2017-12-27 12:45] LABS: INTERNATIONAL NORMALIZED RATIO 2.1 RATIO; PROTHROMBIN TIME - PATIENT 21.1 SEC (9.8-11.6)
[2017-12-27] MEDS: WARFARIN SOD 4 MG TAB PO SCH (16:58)
--- NOTE | 2017-12-27 17:59 | HHI.HCPN ---
Reason for visit a. To assist with evaluation and management of symptoms including:Pain, agitation, physical deconditioning b. To assist medical decision maker(s) with: better understanding of current medical conditions; weighing benefits/burdens of medical treatment options; making medical treatment decisions. Subjective/Interval History Patient is intubated, awake, alert, denies pain and in no signs of distress or discomfort. Patient is able follow commands with left side and she is flaccid on right side, his expressive aphasia. Vital signs stable. Laboratory workup today revealing PT 21.1, INR 2.1. Physical and Occupational Therapy following. Case management following. . Family/friend interactions No family at bedside . Advance Directives Living Will: Never completed Health Care Surrogate: Never completed Durable Power of Supervisor Photoengraving: Never completed Advance Directive Specifics Health Care Surrogate(s): Health Care Proxy- Raul Mohamud- [phone] . Objective Vital Signs Date Time Temp Pulse Resp B/P (MAP) Pulse Ox O2 Delivery O2 Flow Rate FiO2 12/27/17 16:05 98.0 74 20 140/66 (90) 97 12/27/17 11:58 97.3 72 20 144/64 (90) 97 12/27/17 07:44 97.7 94 20 178/79 (112) 94 12/27/17 05:20 97.7 77 18 161/70 (100) 96 12/27/17 00:34 98.5 77 18 136/64 (88) 95 12/26/17 20:53 98.2 77 18 139/60 (86) 94 Intake & Output 12/27/17 12/27/17 07:00 19:00 Intake Total 720 ml Balance 720 ml Intake Oral 720 ml # Voids 3 4 # Bowel Movements 1 1 Physical Exam CONSTITUTIONAL/GENERAL: This is an adequately nourished patient, in no apparent distress. Denies pain. TUBES/LINES/DRAINS: SKIN: No jaundice, rashes, or lesions. Ecchymoses on upper extremities. No wounds seen anteriorly. Skin temperature appropriate. Not diaphoretic. HEAD: Atraumatic. Normocephalic. EYES: Pupils equal and round and reactive. Extraocular motions intact. No scleral icterus. No injection or drainage. Fundi not examined. ENT: Hearing grossly normal. Nose without bleeding or purulent drainage. Moist oral mucosa. NECK: Trachea midline. Supple, nontender. CARDIOVASCULAR: Regular rate and rhythm without murmurs, gallops, or rubs. No JVD. Peripheral pulses symmetric. RESPIRATORY/CHEST: Symmetric, unlabored respirations. Clear to auscultation. Breath sounds equal bilaterally. No wheezes, rales, or rhonchi. GASTROINTESTINAL: Abdomen soft, non-tender, nondistended. No guarding. Bowel sounds present. GENITOURINARY: Without palpable bladder distension. MUSCULOSKELETAL: Extremities without clubbing, cyanosis, or edema. No joint tenderness or effusion noted. No calf tenderness. No mottling or clubbing. NEUROLOGICAL:Awake, alert with expressive aphasia. Follows simple commands with LUE and LLE. Right side is flaccid PSYCHIATRIC:Patient is awake and calm. No obvious anxiety/depression. no apparent hallucinations or other psychotic thought process. . Diagnostic Tests Laboratory Laboratory Tests Test 12/25/17 11:05 12/26/17 06:43 12/27/17 11:26 Prothrombin Time 17.4 SEC (9.8-11.6) 21.1 SEC (9.8-11.6) 21.1 SEC (9.8-11.6) Prothromb Time International Ratio 1.7 RATIO 2.1 RATIO 2.1 RATIO Assessment and Plan Disease Oriented Problem List: (1) CVA (cerebral vascular accident) (2) HTN (hypertension) (3) Encephalopathy (4) Tobacco abuse Symptom Scale: (1) Pain 0-10 Scale: Unable to quantify Comment: Pain to RUE. Humerus X ray on 12/02/17 revealed Fracture through the proximal humerus. Periosteal bone formation suggesting healing. . (2) Physical deconditioning 0-10 Scale: Unable to quantify Comment: Progressive. . Pertinent Non-Medical Issues Psychosocial:Patient was born in [facility]. She is . Patient graduated from college and has a bachelor's degree in education. 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 Spiritual:Patient is Episcopal Legal: Patient does not have advanced directives. Ethical issues impacting care: None identified at this time. . Important Contacts Son- Raul Bennett- [phone] Sister Harvey Fernandez [phone] Sister Michelle Raza [phone] . Prognosis Ms Rodríguez is a 67 years old female with a past medical history CVA with residual aphasia, right hemiplegia and left hemiparesis, hypertension, Diabetes Mellitus- Type 2, anxiety disorder, bipolar disorder, osteoarthritis and insomnia. Patient was admitted from 05/20/17-05/29/17 and treated for an acute left frontoparietal CVA .She was discharged to a SNF [facility]. Patient was transported by EMS to the ER on 10/25/17 with a complaint of altered mental status. Patient was found slumped over after she had wheeled herself outside to smoke, and ecchymosis to right humerus and forearm. Clinical course complicated with evolving left hemisphere CVA, agitation, and delirium. Given ongoing comorbidities, patient remains at high risk for further complications, deterioration and decline. . Code Status: Full Code Plan PLAN: Legal decision maker: Patient has a history of stroke with expressive aphasia , agitation and altered mental status during this hospitalization. Patient is not able to participate in making her own medical decisions. Patient has an adult son who according to [place] Statute will serve as patient`s Health Care Proxy. Goals: Aggressive CODE STATUS: Full Code Per note guardianship hearing is set for January 01 and [facility] may be able to accept the patient on , January 02. SYMPTOMS: * Pain : to RUE. Humerus X ray on 12/02/17 revealed Fracture through the proximal humerus. Periosteal bone formation suggesting healing. Occupational therapy consulted. Patient has Hydrocodone/acetaminophen 5/325 q 4 hrs prn pain. .Patient denies pain. No recommendations. * Agitation: Multifactorial. History of bipolar disorder and CVA with expressive aphasia. Psychiatry consulted. Seroquel 50mg BID, Haldol 2mg BID. Patient has Zyprexa 10mg q 12hrs prn. Last Zyprexa dose received 11/03/eems to be compounded with inability to communicate her needs due to expressive aphasia. No recommendations at this time. Patient is calm. * Physical deconditioning: Progressive. Patient has a history CVA with Residual Aphasia,Right Hemiplegia and Left Hemiparesis. During her admission in January 2017 patient weight 79.7kgs and on October 28, 2017 patient weighed 59.9kgs. Physical therapy consulted. Occupational and physical therapy following. Patient's participation is limited due to expressive aphasia, inability to comprehend complex commands, right hemiplegia and left hemiparesis. No recommendations at this time. Palliative care will continue to follow the patient during hospital course as condition evolves, to assist patient/decision-maker with understanding of their medical conditions, weighing benefits/burdens of treatment options, for clarification of goals of treatment. Additionally will assist with any symptoms of palliative concern Attestation To help prompt me to consider important information that might be impacting today's encounter and assessment, information from prior notes written by myself or my colleagues may have been "brought forward" into today's note. My signature on this note, however, is an attestation that I personally performed the exam, history, and/or decision-making noted today, and, unless otherwise indicated, the interactions with patient, family, and staff as well as the review of records all occurred today. I also attest that the listed assessment and stated plan reflect my best clinical judgment today based on the combination of historical information, prior notes, and today's exam/ interactions. When time spent is documented, it refers only to time spent today by the signer, or if indicated, combined time spent today by collaborating physician/nurse practitioner. Susan Dawson Dec 27, 2017 17:59
[2017-12-28 00:20] VITALS: BP 120/90; PULSE 80; RESP 20; TEMP 97.2; O2SAT 95
[2017-12-28] MEDS: ACETAMINOPHEN/HYDROcodone 325 MG/5 MG TAB PO PRN ×3 (03:31→23:49)
[2017-12-28 04:52] VITALS: BP 144/65; PULSE 66; RESP 18; TEMP 98.1; O2SAT 98
[2017-12-28 08:00] VITALS: BP 128/73; PULSE 69; RESP 18; TEMP 97.7; O2SAT 97
[2017-12-28 08:10] LABS: INTERNATIONAL NORMALIZED RATIO 1.7 RATIO; PROTHROMBIN TIME - PATIENT 17.4 SEC (9.8-11.6)
[2017-12-28] MEDS: LISINOPRIL 5 MG TAB PO SCH ×2 (09:00→21:28)
[2017-12-28] MEDS: DOCUSATE SODIUM 50 MG/SENNA 8.6 MG TAB PO SCH ×2 (09:00→21:00)
[2017-12-28] MEDS: SODIUM CHLORIDE 0.9% FLUSH 10 ML FLUSH IV FLUSH SCH ×2 (09:00→21:00)
[2017-12-28] MEDS: CARVEDILOL 3.125 MG TAB PO SCH ×2 (09:00→21:28)
[2017-12-28] MEDS: HALOPERIDOL LACTATE ORAL CONC 10 MG/5 ML CUP PO SCH ×2 (09:44→21:28)
[2017-12-28] MEDS: levETIRAcetam 500 MG/5 ML UDC PO SCH ×2 (09:44→21:28)
[2017-12-28] MEDS: LACTOBACILLUS ACIDOPHILUS TAB PO SCH ×2 (09:44→21:00)
[2017-12-28] MEDS: ATORVASTATIN 10 MG TAB PO SCH (09:45)
[2017-12-28] MEDS: QUEtiapine FUMARATE 25 MG TAB PO SCH ×2 (09:45→12:39)
--- NOTE | 2017-12-28 10:55 | HHI.PR ---
Subjective Remarks in no acute distress. d/w the RN and reportedly refused her Keppra last night. Objective Vitals Vital Signs Date Time Temp Pulse Resp B/P (MAP) Pulse Ox O2 Delivery O2 Flow Rate FiO2 12/28/17 08:00 97.7 69 18 128/73 (91) 97 12/28/17 04:52 98.1 66 18 144/65 (91) 98 12/28/17 04:43 18 12/28/17 00:20 97.2 80 20 120/90 (100) 95 12/27/17 21:12 98.0 73 20 140/63 (88) 100 12/27/17 21:00 98.1 88 19 125/89 (101) 96 12/27/17 16:05 98.0 74 20 140/66 (90) 97 12/27/17 11:58 97.3 72 20 144/64 (90) 97 I/O 12/27/17 12/27/17 12/27/17 12/28/17 12/28/17 12/28/17 07:00 15:00 23:00 07:00 15:00 23:00 Intake Total 1120 ml Balance 1120 ml Intake Oral 1120 ml # Voids 2 6 1 # Bowel Movements 1 Imaging Last Impressions Shoulder X-Ray 12/16/17 0000 Signed Impressions: Service Date/Time: Saturday, December 16, 2017 11:10 - CONCLUSION: Stable appearance to the subacute right proximal humeral neck fracture. Otherwise, no significant change is appreciated compared to the study from 2 weeks ago. George Jensen MD Chest X-Ray 12/11/17 0000 Signed Impressions: Service Date/Time: Monday, December 11, 2017 17:02 - CONCLUSION: The lungs are clear. Lionel Wood MD Humerus X-Ray 12/02/17 0000 Signed Impressions: Service Date/Time: Saturday, December 02, 2017 11:08 - CONCLUSION: 1. Fracture through the proximal humerus. There is periosteal bone formation suggesting healing. Nikolas Stewart MD Neck CTA 10/27/17 0000 Signed Impressions: Service Date/Time: Friday, October 27, 2017 17:42 - CONCLUSION: 1. Occluded left internal carotid artery 2. Mild narrowing at the origin of the right internal carotid artery measuring 30%%. 3. Patent vertebral arteries with good flow. Price F. Jaye, MD Head CTA 10/27/17 0000 Signed Impressions: Service Date/Time: Friday, October 27, 2017 17:42 - CONCLUSION: 1. Occluded intracranial segment of the left internal carotid artery. 2. Very scant flow in the left middle cerebral artery distribution with proximal MCA occlusion. 3. Evolving large left MCA infarct. rPice Cee MD Head CT 10/27/17 0000 Signed Impressions: Service Date/Time: Friday, October 27, 2017 17:34 - CONCLUSION: 1. No evidence of acute right-sided infarction. Cystic encephalomalacia involving the left middle cerebral artery distribution unchanged 2. Pansinusitis Soren Rose MD Carotid Artery Ultrasound 10/27/17 0000 Signed Impressions: Service Date/Time: Friday, October 27, 2017 16:16 - CONCLUSION: 1. Findings of left carotid occlusion. CT angiography of the carotid arteries the brain is recommended for further evaluation Soren Rose MD Brain MRI 10/26/17 0000 Signed Impressions: Service Date/Time: Thursday, October 26, 2017 16:34 - CONCLUSION: Cystic encephalomalacia involving large left middle cerebral artery ischemic infarction. There is a small focus of restricted diffusion in the posterior left frontal region without hemorrhage characteristic of extension of the infarct. Pansinusitis Soren Rose MD Radius/Ulna X-Ray 10/25/17 0000 Signed Impressions: Service Date/Time: Wednesday, October 25, 2017 20:03 - CONCLUSION: 1. No acute fracture or dislocation. No bony destructive changes. Carlton Early MD Objective Remarks GENERAL: This is a well-nourished, well-developed patient, in no apparent distress. CARDIOVASCULAR: Regular rate and regular rhythm without murmurs, gallops, or rubs. RESPIRATORY: Clear to auscultation. Breath sounds equal bilaterally. No wheezes , rales, or rhonchi. GASTROINTESTINAL: Abdomen soft, non-tender, nondistended. Normal, active bowel sounds MUSCULOSKELETAL: Extremities without clubbing, cyanosis, or edema. NEURO: Awake and alert with dysphasia. Procedures none Medications and IVs Inpatient Medications Acetaminophen 100 ml @ 400 mls/hr Q8H PRN IV fever if not taking PO ; Start at 16:45 Acetaminophen (Tylenol) 650 mg Q6H PRN PO FEVER/PAIN SCALE 1 TO 2 Last administered on 11/04/17at 17:50; Start 10/25/17 at 20:15 Acetaminophen/ Hydrocodone Bitart (Lawrence 5-325 Mg) 1 tab Q4H PRN PO PAIN SCALE 5 TO 10 Last administered on 12/28/17at 03:31; Start 10/25/17 at 20:15 Acetaminophen/ Hydrocodone Bitart (Lawrence 10-325 Mg) 1 tab Q4H PRN PO PAIN SCALE 6 TO 10 Last administered on 11/27/17at 23:04; Start 10/25/17 at 20:15; Stop 11/30/17 at 10:07; Status DC Albuterol Sulfate (Albuterol Neb) 0.63 mg Q6HR NEB NEB Last administered on at 10:19; Start 11/04/17 at 10:00; Stop 11/08/17 at 09:59; Status DC Aspirin (Aspirin Supp) 300 mg DAILY RECTAL Last administered on 11/03/17at 07:37 ; Start 10/28/17 at 09:00; Stop 11/03/17 at 15:12; Status DC Aspirin (Aspirin) 325 mg DAILY PO Last administered on 10/27/17at 09:33; Start at 09:00; Stop 10/28/17 at 08:00; Status DC Atorvastatin Calcium (Lipitor) 10 mg DAILY PO Last administered on 12/28/17at 09 :45; Start 10/26/17 at 09:00 Bisacodyl (Dulcolax Supp) 10 mg DAILY PRN RECTAL SEVERE CONSITIPATION; Start at 20:15 Carvedilol (Coreg) 3.125 mg Q12HR PO Last administered on 12/27/17at 21:16; Start 10/31/17 at 21:00; Status Future hold Clonidine (Catapres) 0.1 mg ONCE ONCE PO Last administered on 11/28/17at 00:20; Start 11/28/17 at 00:15; Stop 11/28/17 at 00:16; Status DC Clopidogrel Bisulfate (Plavix) 75 mg DAILY PO Last administered on 10/27/17at 13: 23; Start 10/27/17 at 13:00; Stop 10/27/17 at 20:57; Status DC Dextrose (D50w (Vial) Inj) 50 ml UNSCH PRN IV PUSH HYPOGLYCEMIA-SEE COMMENTS; Start 10/27/17 at 21:00; Stop 11/02/17 at 11:35; Status DC Diazepam (Valium) 5 mg Q12HR PO Last administered on 12/16/17at 20:43; Start 10/25/17 at 21:00; Stop 12/17/17 at 11:01; Status DC Enalaprilat (Vasotec Inj) 2.5 mg Q6H PRN IV PUSH SBP>160, DBP>90 Last administered on 12/13/17at 10:12; Start 12/07/17 at 11:15 Glucagon (Glucagon Inj) 1 mg UNSCH PRN OTHER HYPOGLYCEMIA-SEE COMMENTS; Start 10/27/17 at 21:00; Stop 11/02/17 at 11:35; Status DC Haloperidol (Haldol) 2 mg TID PRN PO AGITATION AND/OR HALLUCINATION; Start at 11:15; Stop 12/07/17 at 15:36; Status DC Haloperidol Lactate (Haldol Inj) 2 mg Q8H PRN IM severe agitation ; Start at 12:30; Stop 10/31/17 at 15:05; Status DC Haloperidol Lactate (Haldol Lactate Liq) 2 mg BID PO Last administered on at 09:44; Start 12/07/17 at 21:00 Heparin Sodium (Porcine) (Heparin Inj) 5,000 units Q12HR SQ Last administered on 10/27/17at 20:40; Start 10/27/17 at 21:00; Stop 10/27/17 at 21:00; Status DC Heparin Sodium/ Dextrose 250 ml @ 7 mls/hr TITRATE PRN IV Coagulation Management Last administered on 11/02/17at 12:05; Start 10/27/17 at 22:30; Stop at 15:02; Status DC Hydralazine HCl (Apresoline) 10 mg Q6HR PRN PO SBP>160, DBP>90; Start 12/07/17 at 11:15 Insulin Aspart (NovoLOG SUPPLEMENTAL SCALE) 1 ACHS SQ ; Start 10/27/17 at 21:00; Stop 11/02/17 at 11:35; Status DC Lactobacillus Acidophilus (Lactinex) 1 tab Q12HR PO Last administered on at 09:44; Start 12/11/17 at 21:00 Lactulose (Lactulose Liq) 30 ml DAILY PRN PO SEVERE CONSITIPATION Last administered on 10/31/17at 08:40; Start 10/25/17 at 20:15 Levetriacetam (Keppra Liq) 1,000 mg Q12HR PO Last administered on 12/28/17at 09 :44; Start 11/29/17 at 09:00 Levetriacetam (Keppra) 1,000 mg Q12HR PO Last administered on 11/27/17at 22:57; Start 10/29/17 at 21:00; Stop 11/28/17 at 23:02; Status DC Levetriacetam 500 mg/Sodium Chloride 105 ml @ 420 mls/hr Q6H IV Last administered on 10/29/17at 11:03; Start 10/28/17 at 04:00; Stop 10/29/17 at 13:57; Status DC Lisinopril (Prinivil) 5 mg BID PO Last administered on 12/27/17at 21:16; Start at 21:00 Lorazepam (Ativan Inj) 1 mg Q6HR PRN IV PUSH SEIZURES; Start 10/26/17 at 15:00 Magnesium Hydroxide (Milk Of Magnesia Liq) 30 ml Q12H PRN PO Mild constipation Last administered on 11/11/17at 09:36; Start 10/25/17 at 20:15 Metoprolol Tartrate (Lopressor Inj) 5 mg ONCE ONCE IV PUSH Last administered on 10/25/17at 20:43; Start 10/25/17 at 20:30; Stop 10/25/17 at 20:31; Status DC Metronidazole 100 ml @ 100 mls/hr Q8H IV Last administered on 12/14/17at 03:12 ; Start 12/11/17 at 20:00; Stop 12/14/17 at 12:48; Status DC Metronidazole (Flagyl) 500 mg ONCE ONCE PO Last administered on 11/04/17at 21: 33; Start 11/04/17 at 20:00; Stop 11/04/17 at 20:01; Status DC Miscellaneous (Pill Splitter) 1 ea UNSCH PRN OTHER SEE LABEL COMMENTS; Start at 16:45 Morphine Sulfate (Morphine Inj) 2 mg Q4H PRN IV PAIN 6-10 IF NOT TOLERATING PO Last administered on 11/06/17at 17:48; Start 10/28/17 at 08:15; Stop 12/16/17 at 08:24; Status DC Olanzapine (ZyPREXA INJ) 10 mg Q12H PRN IM agitation Last administered on at 07:37; Start 11/01/17 at 13:15 Ondansetron HCl (Zofran Inj) 4 mg Q6H PRN IVP NAUSEA OR VOMITING; Start at 20:15 Patient Medication Teaching (Coumadin Booklet) 1 ONCE ONCE OTHER Last administered on 11/02/17at 16:24; Start 11/02/17 at 16:00; Stop 11/02/17 at 16:01 ; Status DC Pharmacy Profile Note 0 ml @ 0 mls/hr UNSCH OTHER ; Start 11/02/17 at 08:45; Status Future hold Piperacillin Sod/ Tazobactam Sod 100 ml @ 200 mls/hr ONCE STAT IV Last administered on 11/04/17at 11:18; Start 11/04/17 at 10:08; Stop 11/04/17 at 10:37 ; Status DC Potassium Chloride/Sodium Chloride 1,000 ml @ 42 mls/hr [id number] IV Last administered on 11/07/17at 15:08; Start 11/03/17 at 14:00; Stop 11/08/17 at 09:07 ; Status DC Potassium Chloride (KCl Powder) 40 meq ONCE ONCE PO Last administered on at 09:11; Start 11/06/17 at 09:00; Stop 11/06/17 at 09:06; Status DC Quetiapine Fumarate (SEROquel) 50 mg BID@09,12 PO Last administered on at 09:45; Start 11/01/17 at 09:00 Senna/Docusate Sodium (Aleah-Colace) 1 tab BID PO Last administered on 12/27/17at 08:25; Start 10/25/17 at 21:00 Sennosides (Senokot) 17.2 mg Q12H PRN PO Moderate constipation Last administered on 11/17/17at 10:02; Start 10/25/17 at 20:15 Sodium Chloride 1,000 ml @ 84 mls/hr [id number] IV Last administered on at 18:18; Start 12/11/17 at 17:00; Stop 12/23/17 at 10:48; Status DC Sodium Chloride (NS Flush) 2 ml BID IV FLUSH ; Start 11/04/17 at 21:00; Stop at 21:00; Status DC Vancomycin HCl (VANCOMYCIN for oral use only) 500 mg Q6H PO Last administered on 11/18/17at 17:47; Start 11/05/17 at 00:00; Stop 11/18/17 at 23:55; Status DC Vancomycin HCl (Vancomycin 25 Mg/ml Liq) 250 mg QID PO Last administered on 12/22at 20:00; Start 12/12/17 at 18:00; Stop 12/23/17 at 08:00; Status DC Vancomycin HCl 1000 mg/Sodium Chloride 250 ml @ 250 mls/hr Q24H IV ; Start at 12:00; Stop 11/05/17 at 12:00; Status DC Warfarin Sodium (Coumadin) 3 mg ONCE ONCE PO Last administered on 12/25/17at 16: 30; Start 12/25/17 at 16:00; Stop 12/25/17 at 16:01; Status DC A/P Problem List: (1) Encephalopathy ICD Code: G93.40 - Encephalopathy, unspecified (2) CVA (cerebral vascular accident) ICD Code: I63.9 - Cerebral infarction, unspecified (3) HTN (hypertension) ICD Code: I10 - Essential (primary) hypertension (4) Tobacco abuse ICD Code: Z72.0 - Tobacco use Assessment and Plan A/P 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 - Continue Coumadin. Continue PT/OT. - pharmacist consulted and managing the Coumadin dosing. Seizure - Continue Keppra- although the patient is not very compliant. - Seizure precautions - check keppra level. Hypertension - continue with current regimen. C. difficile colitis (hyper virulent strain) - finished the course of treatment with Vancomycin. Right heel wound. will reconsult wound care for follow-up. Bipolar disorder, agitation - Continue Seroquel. - seen by Psychiatry Cardiomyopathy - Continue beta evonne, JAYLEN inhibitor. Right subacute humeral fracture- occurred 09/30- ER - -Orthopedic services saw patient, appreciate recommendations. -Nonoperative management, continue to keep position for healing. - NWB right UE - repeat XR in 1-2 weeks. - PT - OP ff up with Ortho DVT prophylaxis - on Coumadin Discharge Planning dc planning in progress. Bobo Ridley MD Dec 28, 2017 10:55
[2017-12-28] MEDS ORDERED: WARFARIN SOD 2 MG TAB PO ONE (16:00)
[2017-12-28] MEDS: WARFARIN SOD 4 MG TAB PO SCH (18:17)
[2017-12-28 19:08] VITALS: BP 130/74; PULSE 75; RESP 18; TEMP 98.3; O2SAT 99
[2017-12-28 20:00] VITALS: BP_SYST 156; BP_SYST 181; BP_DIAS 70; BP_DIAS 72; PULSE 76; RESP 18; TEMP 97.4; O2SAT 94
[2017-12-29] VITALS: BP 141/68; PULSE 83; RESP 18; TEMP 97.7; O2SAT 98
[2017-12-29 04:00] VITALS: BP 124/58; PULSE 71; RESP 18; TEMP 98.1; O2SAT 96
[2017-12-29] MEDS: ACETAMINOPHEN/HYDROcodone 325 MG/5 MG TAB PO PRN ×4 (05:30→21:10)
[2017-12-29 08:00] VITALS: BP 169/79; PULSE 76; RESP 18; TEMP 97; O2SAT 99
[2017-12-29] MEDS: SODIUM CHLORIDE 0.9% FLUSH 10 ML FLUSH IV FLUSH SCH ×2 (08:58→21:00)
[2017-12-29] MEDS: LISINOPRIL 5 MG TAB PO SCH ×2 (08:59→21:10)
[2017-12-29] MEDS: ATORVASTATIN 10 MG TAB PO SCH (08:59)
[2017-12-29] MEDS: CARVEDILOL 3.125 MG TAB PO SCH ×2 (08:59→21:31)
[2017-12-29] MEDS: HALOPERIDOL LACTATE ORAL CONC 10 MG/5 ML CUP PO SCH ×2 (08:59→21:11)
[2017-12-29] MEDS: DOCUSATE SODIUM 50 MG/SENNA 8.6 MG TAB PO SCH ×2 (08:59→21:00)
[2017-12-29] MEDS: LACTOBACILLUS ACIDOPHILUS TAB PO SCH ×2 (08:59→21:10)
[2017-12-29] MEDS: levETIRAcetam 500 MG/5 ML UDC PO SCH ×2 (09:01→21:11)
[2017-12-29] MEDS: QUEtiapine FUMARATE 25 MG TAB PO SCH ×2 (09:05→11:56)
[2017-12-29 09:59] LABS: AUTOMATED NEUTROPHIL # 4.4 TH/MM3 (1.8-7.7); BASOPHIL % 0.7 % (0.0-2.0); EOSINOPHIL # 0.1 TH/MM3 (0-0.4); EOSINOPHIL % 1.9 % (0.0-4.0); HEMATOCRIT 39.3 % (35.0-46.0); HEMOGLOBIN 13.7 GM/DL (11.6-15.3); LYMPH % 28.9 % (9.0-44.0); MEAN CELL VOLUME 89.6 FL (80.0-100.0); MEAN CORPUSCULAR HEMOGLOBIN 31.1 PG (27.0-34.0); MEAN CORPUSCULAR HGB CONC 34.8 % (32.0-36.0); MEAN PLATELET VOLUME 7.8 FL (7.0-11.0); MONO % 5.4 % (0.0-8.0); MONOCYTE # 0.4 TH/MM3 (0-0.9); NEUT % 63.1 % (16.0-70.0); PLATELET COUNT 260 TH/MM3 (150-450); RED BLOOD COUNT 4.39 MIL/MM3 (4.00-5.30); RED CELL DISTRIBUTION WIDTH 16.1 % (11.6-17.2); WHITE BLOOD COUNT 6.9 TH/MM3 (4.0-11.0)
[2017-12-29 10:11] LABS: INTERNATIONAL NORMALIZED RATIO 1.6 RATIO; PROTHROMBIN TIME - PATIENT 15.8 SEC (9.8-11.6)
[2017-12-29 10:20] LABS: BICARBONATE 33.1 MEQ/L (21.0-32.0); CALCIUM 9.3 MG/DL (8.5-10.1); CREATININE 0.73 MG/DL (0.50-1.00)
--- NOTE | 2017-12-29 10:41 | HHI.PR ---
Subjective Remarks in no distress. no new complaints. no change. Objective Vitals Vital Signs Date Time Temp Pulse Resp B/P (MAP) Pulse Ox O2 Delivery O2 Flow Rate FiO2 12/29/17 08:00 97.0 76 18 169/79 (109) 99 12/29/17 04:00 98.1 71 18 124/58 (80) 96 12/29/17 00:00 97.7 83 18 141/68 (92) 98 12/28/17 20:00 97.4 76 18 181/72 (108) 94 156/70 (98) 12/28/17 19:08 98.3 75 18 130/74 (92) 99 I/O 12/28/17 12/28/17 12/28/17 12/29/17 12/29/17 12/29/17 07:00 15:00 23:00 07:00 15:00 23:00 Intake Total 720 ml Balance 720 ml Intake Oral 720 ml # Voids 1 4 3 # Bowel Movements 1 Result Diagram: 12/29/17 0908 12/29/17 0908 Imaging Last Impressions Shoulder X-Ray 12/16/17 0000 Signed Impressions: Service Date/Time: Saturday, December 16, 2017 11:10 - CONCLUSION: Stable appearance to the subacute right proximal humeral neck fracture. Otherwise, no significant change is appreciated compared to the study from 2 weeks ago. George Jensen MD Chest X-Ray 12/11/17 0000 Signed Impressions: Service Date/Time: Monday, December 11, 2017 17:02 - CONCLUSION: The lungs are clear. Lionel Wood MD Humerus X-Ray 12/02/17 0000 Signed Impressions: Service Date/Time: Saturday, December 02, 2017 11:08 - CONCLUSION: 1. Fracture through the proximal humerus. There is periosteal bone formation suggesting healing. Nikolas Stewart MD Neck CTA 10/27/17 0000 Signed Impressions: Service Date/Time: Friday, October 27, 2017 17:42 - CONCLUSION: 1. Occluded left internal carotid artery 2. Mild narrowing at the origin of the right internal carotid artery measuring 30%%. 3. Patent vertebral arteries with good flow. Price Cee MD Head CTA 10/27/17 0000 Signed Impressions: Service Date/Time: Friday, October 27, 2017 17:42 - CONCLUSION: 1. Occluded intracranial segment of the left internal carotid artery. 2. Very scant flow in the left middle cerebral artery distribution with proximal MCA occlusion. 3. Evolving large left MCA infarct. Price Cee MD Head CT 10/27/17 0000 Signed Impressions: Service Date/Time: Friday, October 27, 2017 17:34 - CONCLUSION: 1. No evidence of acute right-sided infarction. Cystic encephalomalacia involving the left middle cerebral artery distribution unchanged 2. Pansinusitis Soren Rose MD Carotid Artery Ultrasound 10/27/17 0000 Signed Impressions: Service Date/Time: Friday, October 27, 2017 16:16 - CONCLUSION: 1. Findings of left carotid occlusion. CT angiography of the carotid arteries the brain is recommended for further evaluation Soren Rose MD Brain MRI 10/26/17 0000 Signed Impressions: Service Date/Time: Thursday, October 26, 2017 16:34 - CONCLUSION: Cystic encephalomalacia involving large left middle cerebral artery ischemic infarction. There is a small focus of restricted diffusion in the posterior left frontal region without hemorrhage characteristic of extension of the infarct. Pansinusitis Soren Rose MD Radius/Ulna X-Ray 10/25/17 0000 Signed Impressions: Service Date/Time: Wednesday, October 25, 2017 20:03 - CONCLUSION: 1. No acute fracture or dislocation. No bony destructive changes. Carlton Early MD Objective Remarks GENERAL: This is a well-nourished, well-developed patient, in no apparent distress. CARDIOVASCULAR: Regular rate and regular rhythm without murmurs, gallops, or rubs. RESPIRATORY: Clear to auscultation. Breath sounds equal bilaterally. No wheezes , rales, or rhonchi. GASTROINTESTINAL: Abdomen soft, non-tender, nondistended. Normal, active bowel sounds MUSCULOSKELETAL: Extremities without clubbing, cyanosis, or edema. NEURO: Awake and alert with dysphasia. Procedures none Medications and IVs Inpatient Medications Acetaminophen 100 ml @ 400 mls/hr Q8H PRN IV fever if not taking PO ; Start at 16:45 Acetaminophen (Tylenol) 650 mg Q6H PRN PO FEVER/PAIN SCALE 1 TO 2 Last administered on 11/04/17at 17:50; Start 10/25/17 at 20:15 Acetaminophen/ Hydrocodone Bitart ([place] 5-325 Mg) 1 tab Q4H PRN PO PAIN SCALE 5 TO 10 Last administered on 12/29/17at 09:08; Start 10/25/17 at 20:15 Acetaminophen/ Hydrocodone Bitart ([place] 10-325 Mg) 1 tab Q4H PRN PO PAIN SCALE 6 TO 10 Last administered on 11/27/17at 23:04; Start 10/25/17 at 20:15; Stop 11/30/17 at 10:07; Status DC Albuterol Sulfate (Albuterol Neb) 0.63 mg Q6HR NEB NEB Last administered on at 10:19; Start 11/04/17 at 10:00; Stop 11/08/17 at 09:59; Status DC Aspirin (Aspirin Supp) 300 mg DAILY RECTAL Last administered on 11/03/17at 07:37 ; Start 10/28/17 at 09:00; Stop 11/03/17 at 15:12; Status DC Aspirin (Aspirin) 325 mg DAILY PO Last administered on 10/27/17at 09:33; Start at 09:00; Stop 10/28/17 at 08:00; Status DC Atorvastatin Calcium (Lipitor) 10 mg DAILY PO Last administered on 12/29/17at 08 :59; Start 10/26/17 at 09:00 Bisacodyl (Dulcolax Supp) 10 mg DAILY PRN RECTAL SEVERE CONSITIPATION; Start at 20:15 Carvedilol (Coreg) 3.125 mg Q12HR PO Last administered on 12/29/17at 08:59; Start 10/31/17 at 21:00; Status Future hold Clonidine (Catapres) 0.1 mg ONCE ONCE PO Last administered on 11/28/17at 00:20; Start 11/28/17 at 00:15; Stop 11/28/17 at 00:16; Status DC Clopidogrel Bisulfate (Plavix) 75 mg DAILY PO Last administered on 10/27/17at 13: 23; Start 10/27/17 at 13:00; Stop 10/27/17 at 20:57; Status DC Dextrose (D50w (Vial) Inj) 50 ml UNSCH PRN IV PUSH HYPOGLYCEMIA-SEE COMMENTS; Start 10/27/17 at 21:00; Stop 11/02/17 at 11:35; Status DC Diazepam (Valium) 5 mg Q12HR PO Last administered on 12/16/17at 20:43; Start 10/25/17 at 21:00; Stop 12/17/17 at 11:01; Status DC Enalaprilat (Vasotec Inj) 2.5 mg Q6H PRN IV PUSH SBP>160, DBP>90 Last administered on 12/13/17at 10:12; Start 12/07/17 at 11:15 Glucagon (Glucagon Inj) 1 mg UNSCH PRN OTHER HYPOGLYCEMIA-SEE COMMENTS; Start 10/27/17 at 21:00; Stop 11/02/17 at 11:35; Status DC Haloperidol (Haldol) 2 mg TID PRN PO AGITATION AND/OR HALLUCINATION; Start at 11:15; Stop 12/07/17 at 15:36; Status DC Haloperidol Lactate (Haldol Inj) 2 mg Q8H PRN IM severe agitation ; Start at 12:30; Stop 10/31/17 at 15:05; Status DC Haloperidol Lactate (Haldol Lactate Liq) 2 mg BID PO Last administered on at 08:59; Start 12/07/17 at 21:00 Heparin Sodium (Porcine) (Heparin Inj) 5,000 units Q12HR SQ Last administered on 10/27/17at 20:40; Start 10/27/17 at 21:00; Stop 10/27/17 at 21:00; Status DC Heparin Sodium/ Dextrose 250 ml @ 7 mls/hr TITRATE PRN IV Coagulation Management Last administered on 11/02/17at 12:05; Start 10/27/17 at 22:30; Stop at 15:02; Status DC Hydralazine HCl (Apresoline) 10 mg Q6HR PRN PO SBP>160, DBP>90; Start 12/07/17 at 11:15 Insulin Aspart (NovoLOG SUPPLEMENTAL SCALE) 1 ACHS SQ ; Start 10/27/17 at 21:00; Stop 11/02/17 at 11:35; Status DC Lactobacillus Acidophilus (Lactinex) 1 tab Q12HR PO Last administered on at 08:59; Start 12/11/17 at 21:00 Lactulose (Lactulose Liq) 30 ml DAILY PRN PO SEVERE CONSITIPATION Last administered on 10/31/17at 08:40; Start 10/25/17 at 20:15 Levetriacetam (Keppra Liq) 1,000 mg Q12HR PO Last administered on 12/29/17at 09 :01; Start 11/29/17 at 09:00 Levetriacetam (Keppra) 1,000 mg Q12HR PO Last administered on 11/27/17at 22:57; Start 10/29/17 at 21:00; Stop 11/28/17 at 23:02; Status DC Levetriacetam 500 mg/Sodium Chloride 105 ml @ 420 mls/hr Q6H IV Last administered on 10/29/17at 11:03; Start 10/28/17 at 04:00; Stop 10/29/17 at 13:57; Status DC Lisinopril (Prinivil) 5 mg BID PO Last administered on 12/29/17at 08:59; Start 11/08/17 at 21:00 Lorazepam (Ativan Inj) 1 mg Q6HR PRN IV PUSH SEIZURES; Start 10/26/17 at 15:00 Magnesium Hydroxide (Milk Of Magnesia Liq) 30 ml Q12H PRN PO Mild constipation Last administered on 11/11/17at 09:36; Start 10/25/17 at 20:15 Metoprolol Tartrate (Lopressor Inj) 5 mg ONCE ONCE IV PUSH Last administered on 10/25/17at 20:43; Start 10/25/17 at 20:30; Stop 10/25/17 at 20:31; Status DC Metronidazole 100 ml @ 100 mls/hr Q8H IV Last administered on 12/14/17at 03:12 ; Start 12/11/17 at 20:00; Stop 12/14/17 at 12:48; Status DC Metronidazole (Flagyl) 500 mg ONCE ONCE PO Last administered on 11/04/17at 21: 33; Start 11/04/17 at 20:00; Stop 11/04/17 at 20:01; Status DC Miscellaneous (Pill Splitter) 1 ea UNSCH PRN OTHER SEE LABEL COMMENTS; Start at 16:45 Morphine Sulfate (Morphine Inj) 2 mg Q4H PRN IV PAIN 6-10 IF NOT TOLERATING PO Last administered on 11/06/17at 17:48; Start 10/28/17 at 08:15; Stop 12/16/17 at 08:24; Status DC Olanzapine (ZyPREXA INJ) 10 mg Q12H PRN IM agitation Last administered on at 07:37; Start 11/01/17 at 13:15 Ondansetron HCl (Zofran Inj) 4 mg Q6H PRN IVP NAUSEA OR VOMITING; Start at 20:15 Patient Medication Teaching (Coumadin Booklet) 1 ONCE ONCE OTHER Last administered on 11/02/17at 16:24; Start 11/02/17 at 16:00; Stop 11/02/17 at 16:01 ; Status DC Pharmacy Profile Note 0 ml @ 0 mls/hr UNSCH OTHER ; Start 11/02/17 at 08:45; Status Future hold Piperacillin Sod/ Tazobactam Sod 100 ml @ 200 mls/hr ONCE STAT IV Last administered on 11/04/17at 11:18; Start 11/04/17 at 10:08; Stop 11/04/17 at 10:37 ; Status DC Potassium Chloride/Sodium Chloride 1,000 ml @ 42 mls/hr [id number] IV Last administered on 11/07/17at 15:08; Start 11/03/17 at 14:00; Stop 11/08/17 at 09:07 ; Status DC Potassium Chloride (KCl Powder) 40 meq ONCE ONCE PO Last administered on at 09:11; Start 11/06/17 at 09:00; Stop 11/06/17 at 09:06; Status DC Quetiapine Fumarate (SEROquel) 50 mg BID@09,12 PO Last administered on at 09:05; Start 11/01/17 at 09:00 Senna/Docusate Sodium ([place]-Colace) 1 tab BID PO Last administered on 12/27/17at 08:25; Start 10/25/17 at 21:00 Sennosides (Senokot) 17.2 mg Q12H PRN PO Moderate constipation Last administered on 11/17/17at 10:02; Start 10/25/17 at 20:15 Sodium Chloride 1,000 ml @ 84 mls/hr [id number] IV Last administered on at 18:18; Start 12/11/17 at 17:00; Stop 12/23/17 at 10:48; Status DC Sodium Chloride (NS Flush) 2 ml BID IV FLUSH ; Start 11/04/17 at 21:00; Stop at 21:00; Status DC Vancomycin HCl (VANCOMYCIN for oral use only) 500 mg Q6H PO Last administered on 11/18/17at 17:47; Start 11/05/17 at 00:00; Stop 11/18/17 at 23:55; Status DC Vancomycin HCl (Vancomycin 25 Mg/ml Liq) 250 mg QID PO Last administered on 12/22at 20:00; Start 12/12/17 at 18:00; Stop 12/23/17 at 08:00; Status DC Vancomycin HCl 1000 mg/Sodium Chloride 250 ml @ 250 mls/hr Q24H IV ; Start at 12:00; Stop 11/05/17 at 12:00; Status DC Warfarin Sodium (Coumadin) 2 mg ONCE ONCE PO Last administered on 12/28/17at 18 :17; Start 12/28/17 at 16:00; Stop 12/28/17 at 16:01; Status DC A/P Problem List: (1) Encephalopathy ICD Code: G93.40 - Encephalopathy, unspecified (2) CVA (cerebral vascular accident) ICD Code: I63.9 - Cerebral infarction, unspecified (3) HTN (hypertension) ICD Code: I10 - Essential (primary) hypertension (4) Tobacco abuse ICD Code: Z72.0 - Tobacco use Assessment and Plan A/P 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 - Continue Coumadin. Continue PT/OT. - pharmacist consulted and managing the Coumadin dosing. Seizure - Continue Keppra- although the patient is not very compliant. - Seizure precautions - check keppra level. Hypertension - continue with current regimen. C. difficile colitis (hyper virulent strain) - finished the course of treatment with Vancomycin. Right heel wound. will reconsult wound care for follow-up. Bipolar disorder, agitation - Continue Seroquel. - seen by Psychiatry Cardiomyopathy - Continue beta evonne, JAYLEN inhibitor. Right subacute humeral fracture- occurred 09/30- ER - -Orthopedic services saw patient, appreciate recommendations. -Nonoperative management, continue to keep position for healing. - NWB right UE - repeat XR in 1-2 weeks. - PT - OP ff up with Ortho DVT prophylaxis - on Coumadin Discharge Planning dc planning in progress. Bobo Ridley MD Dec 29, 2017 10:41
[2017-12-29 12:00] VITALS: BP 170/72; PULSE 73; RESP 18; TEMP 97.4; O2SAT 100
[2017-12-29] MEDS: hydrALAZINE HCL 10 MG TAB PO PRN (14:41)
[2017-12-29 16:00] VITALS: BP 127/64; PULSE 72; RESP 18; TEMP 97.3; O2SAT 97
[2017-12-29] MEDS ORDERED: WARFARIN SOD 6 MG TAB PO SCH (16:00)
[2017-12-29 20:00] VITALS: BP 184/77; PULSE 75; RESP 20; TEMP 97.2; O2SAT 94
[2017-12-30] VITALS (7 sets, daily range): BP systolic 136–167; BP diastolic 60–81; PULSE 76–111; RESP 18–22; TEMP 97.5–98.1; O2SAT 96–99
[2017-12-30] MEDS: ATORVASTATIN 10 MG TAB PO SCH (08:06)
[2017-12-30] MEDS: LISINOPRIL 5 MG TAB PO SCH ×2 (08:06→21:54)
[2017-12-30] MEDS: CARVEDILOL 3.125 MG TAB PO SCH ×2 (08:06→21:53)
[2017-12-30] MEDS: LACTOBACILLUS ACIDOPHILUS TAB PO SCH ×2 (08:06→21:53)
[2017-12-30] MEDS: HALOPERIDOL LACTATE ORAL CONC 10 MG/5 ML CUP PO SCH ×2 (08:06→20:31)
[2017-12-30] MEDS: QUEtiapine FUMARATE 25 MG TAB PO SCH ×2 (08:06→11:37)
[2017-12-30] MEDS: SODIUM CHLORIDE 0.9% FLUSH 10 ML FLUSH IV FLUSH SCH ×2 (08:07→20:51)
[2017-12-30] MEDS: levETIRAcetam 500 MG/5 ML UDC PO SCH ×2 (08:07→21:53)
[2017-12-30] MEDS: DOCUSATE SODIUM 50 MG/SENNA 8.6 MG TAB PO SCH ×2 (08:07→21:00)
[2017-12-30 08:52] LABS: PROTHROMBIN TIME - PATIENT 20.5 SEC (9.8-11.6)
--- NOTE | 2017-12-30 11:14 | HHI.PR ---
Subjective Remarks in no acute distress. no new complaints. Objective Vitals Vital Signs Date Time Temp Pulse Resp B/P (MAP) Pulse Ox O2 Delivery O2 Flow Rate FiO2 12/30/17 08:43 97.6 76 19 167/60 (95) 96 12/30/17 04:14 96 12/30/17 04:00 97.5 77 18 159/76 (103) 99 12/30/17 00:00 97.5 84 18 155/74 (101) 97 12/29/17 20:00 97.2 75 20 184/77 (112) 94 12/29/17 16:00 97.3 72 18 127/64 (85) 97 12/29/17 12:00 97.4 73 18 170/72 (104) 100 I/O 12/29/17 12/29/17 12/29/17 12/30/17 12/30/17 12/30/17 07:00 15:00 23:00 07:00 15:00 23:00 # Voids 3 5 # Bowel Movements 2 Result Diagram: 12/29/17 0908 12/29/17 0908 Imaging Last Impressions Shoulder X-Ray 12/16/17 0000 Signed Impressions: Service Date/Time: Saturday, December 16, 2017 11:10 - CONCLUSION: Stable appearance to the subacute right proximal humeral neck fracture. Otherwise, no significant change is appreciated compared to the study from 2 weeks ago. George Jensen MD Chest X-Ray 12/11/17 0000 Signed Impressions: Service Date/Time: Monday, December 11, 2017 17:02 - CONCLUSION: The lungs are clear. Lionel Wood MD Humerus X-Ray 12/02/17 0000 Signed Impressions: Service Date/Time: Saturday, December 02, 2017 11:08 - CONCLUSION: 1. Fracture through the proximal humerus. There is periosteal bone formation suggesting healing. Nikolas Stewart MD Neck CTA 10/27/17 0000 Signed Impressions: Service Date/Time: Friday, October 27, 2017 17:42 - CONCLUSION: 1. Occluded left internal carotid artery 2. Mild narrowing at the origin of the right internal carotid artery measuring 30%%. 3. Patent vertebral arteries with good flow. Price Cee MD Head CTA 10/27/17 0000 Signed Impressions: Service Date/Time: Friday, October 27, 2017 17:42 - CONCLUSION: 1. Occluded intracranial segment of the left internal carotid artery. 2. Very scant flow in the left middle cerebral artery distribution with proximal MCA occlusion. 3. Evolving large left MCA infarct. Price Cee MD Head CT 10/27/17 0000 Signed Impressions: Service Date/Time: Friday, October 27, 2017 17:34 - CONCLUSION: 1. No evidence of acute right-sided infarction. Cystic encephalomalacia involving the left middle cerebral artery distribution unchanged 2. Pansinusitis Soren Rose MD Carotid Artery Ultrasound 10/27/17 0000 Signed Impressions: Service Date/Time: Friday, October 27, 2017 16:16 - CONCLUSION: 1. Findings of left carotid occlusion. CT angiography of the carotid arteries the brain is recommended for further evaluation Soren Rose MD Brain MRI 10/26/17 0000 Signed Impressions: Service Date/Time: Thursday, October 26, 2017 16:34 - CONCLUSION: Cystic encephalomalacia involving large left middle cerebral artery ischemic infarction. There is a small focus of restricted diffusion in the posterior left frontal region without hemorrhage characteristic of extension of the infarct. Pansinusitis Soren Rose MD Radius/Ulna X-Ray 10/25/17 0000 Signed Impressions: Service Date/Time: Wednesday, October 25, 2017 20:03 - CONCLUSION: 1. No acute fracture or dislocation. No bony destructive changes. Carlton Early MD Objective Remarks GENERAL: This is a well-nourished, well-developed patient, in no apparent distress. CARDIOVASCULAR: Regular rate and regular rhythm without murmurs, gallops, or rubs. RESPIRATORY: Clear to auscultation. Breath sounds equal bilaterally. No wheezes , rales, or rhonchi. GASTROINTESTINAL: Abdomen soft, non-tender, nondistended. Normal, active bowel sounds MUSCULOSKELETAL: Extremities without clubbing, cyanosis, or edema. NEURO: Awake and alert with dysphasia. Procedures none Medications and IVs Inpatient Medications Acetaminophen 100 ml @ 400 mls/hr Q8H PRN IV fever if not taking PO ; Start at 16:45 Acetaminophen (Tylenol) 650 mg Q6H PRN PO FEVER/PAIN SCALE 1 TO 2 Last administered on 11/04/17at 17:50; Start 10/25/17 at 20:15 Acetaminophen/ Hydrocodone Bitart ([place] 5-325 Mg) 1 tab Q4H PRN PO PAIN SCALE 5 TO 10 Last administered on 12/29/17at 21:10; Start 10/25/17 at 20:15 Acetaminophen/ Hydrocodone Bitart ([place] 10-325 Mg) 1 tab Q4H PRN PO PAIN SCALE 6 TO 10 Last administered on 11/27/17at 23:04; Start 10/25/17 at 20:15; Stop 11/30/17 at 10:07; Status DC Albuterol Sulfate (Albuterol Neb) 0.63 mg Q6HR NEB NEB Last administered on at 10:19; Start 11/04/17 at 10:00; Stop 11/08/17 at 09:59; Status DC Aspirin (Aspirin Supp) 300 mg DAILY RECTAL Last administered on 11/03/17at 07:37 ; Start 10/28/17 at 09:00; Stop 11/03/17 at 15:12; Status DC Aspirin (Aspirin) 325 mg DAILY PO Last administered on 10/27/17at 09:33; Start at 09:00; Stop 10/28/17 at 08:00; Status DC Atorvastatin Calcium (Lipitor) 10 mg DAILY PO Last administered on 12/30/17at 08 :06; Start 10/26/17 at 09:00 Bisacodyl (Dulcolax Supp) 10 mg DAILY PRN RECTAL SEVERE CONSITIPATION; Start at 20:15 Carvedilol (Coreg) 3.125 mg Q12HR PO Last administered on 12/30/17at 08:06; Start 10/31/17 at 21:00; Status Future hold Clonidine (Catapres) 0.1 mg ONCE ONCE PO Last administered on 11/28/17at 00:20; Start 11/28/17 at 00:15; Stop 11/28/17 at 00:16; Status DC Clopidogrel Bisulfate (Plavix) 75 mg DAILY PO Last administered on 10/27/17at 13: 23; Start 10/27/17 at 13:00; Stop 10/27/17 at 20:57; Status DC Dextrose (D50w (Vial) Inj) 50 ml UNSCH PRN IV PUSH HYPOGLYCEMIA-SEE COMMENTS; Start 10/27/17 at 21:00; Stop 11/02/17 at 11:35; Status DC Diazepam (Valium) 5 mg Q12HR PO Last administered on 12/16/17at 20:43; Start 10/25/17 at 21:00; Stop 12/17/17 at 11:01; Status DC Enalaprilat (Vasotec Inj) 2.5 mg Q6H PRN IV PUSH SBP>160, DBP>90 Last administered on 12/13/17at 10:12; Start 12/07/17 at 11:15 Glucagon (Glucagon Inj) 1 mg UNSCH PRN OTHER HYPOGLYCEMIA-SEE COMMENTS; Start 10/27/17 at 21:00; Stop 11/02/17 at 11:35; Status DC Haloperidol (Haldol) 2 mg TID PRN PO AGITATION AND/OR HALLUCINATION; Start at 11:15; Stop 12/07/17 at 15:36; Status DC Haloperidol Lactate (Haldol Inj) 2 mg Q8H PRN IM severe agitation ; Start at 12:30; Stop 10/31/17 at 15:05; Status DC Haloperidol Lactate (Haldol Lactate Liq) 2 mg BID PO Last administered on at 08:06; Start 12/07/17 at 21:00 Heparin Sodium (Porcine) (Heparin Inj) 5,000 units Q12HR SQ Last administered on 10/27/17at 20:40; Start 10/27/17 at 21:00; Stop 10/27/17 at 21:00; Status DC Heparin Sodium/ Dextrose 250 ml @ 7 mls/hr TITRATE PRN IV Coagulation Management Last administered on 11/02/17at 12:05; Start 10/27/17 at 22:30; Stop at 15:02; Status DC Hydralazine HCl (Apresoline) 10 mg Q6HR PRN PO SBP>160, DBP>90 Last administered on 12/29/17at 14:41; Start 12/07/17 at 11:15 Insulin Aspart (NovoLOG SUPPLEMENTAL SCALE) 1 ACHS SQ ; Start 10/27/17 at 21:00; Stop 11/02/17 at 11:35; Status DC Lactobacillus Acidophilus (Lactinex) 1 tab Q12HR PO Last administered on 08:06; Start 12/11/17 at 21:00 Lactulose (Lactulose Liq) 30 ml DAILY PRN PO SEVERE CONSITIPATION Last administered on 10/31/17at 08:40; Start 10/25/17 at 20:15 Levetriacetam (Keppra Liq) 1,000 mg Q12HR PO Last administered on 12/30/17 08 :07; Start 11/29/17 at 09:00 Levetriacetam (Keppra) 1,000 mg Q12HR PO Last administered on 11/27/17at 22:57; Start 10/29/17 at 21:00; Stop 11/28/17 at 23:02; Status DC Levetriacetam 500 mg/Sodium Chloride 105 ml @ 420 mls/hr Q6H IV Last administered on 10/29/17at 11:03; Start 10/28/17 at 04:00; Stop 10/29/17 at 13:57; Status DC Lisinopril (Prinivil) 5 mg BID PO Last administered on 12/30/17at 08:06; Start 11/08/17 at 21:00 Lorazepam (Ativan Inj) 1 mg Q6HR PRN IV PUSH SEIZURES; Start 10/26/17 at 15:00 Magnesium Hydroxide (Milk Of Magnesia Liq) 30 ml Q12H PRN PO Mild constipation Last administered on 11/11/17at 09:36; Start 10/25/17 at 20:15 Metoprolol Tartrate (Lopressor Inj) 5 mg ONCE ONCE IV PUSH Last administered on 10/25/17at 20:43; Start 10/25/17 at 20:30; Stop 10/25/17 at 20:31; Status DC Metronidazole 100 ml @ 100 mls/hr Q8H IV Last administered on 12/14/17at 03:12 ; Start 12/11/17 at 20:00; Stop 12/14/17 at 12:48; Status DC Metronidazole (Flagyl) 500 mg ONCE ONCE PO Last administered on 11/04/17at 21: 33; Start 11/04/17 at 20:00; Stop 11/04/17 at 20:01; Status DC Miscellaneous (Pill Splitter) 1 ea UNSCH PRN OTHER SEE LABEL COMMENTS; Start at 16:45 Morphine Sulfate (Morphine Inj) 2 mg Q4H PRN IV PAIN 6-10 IF NOT TOLERATING PO Last administered on 11/06/17at 17:48; Start 10/28/17 at 08:15; Stop 12/16/17 at 08:24; Status DC Olanzapine (ZyPREXA INJ) 10 mg Q12H PRN IM agitation Last administered on at 07:37; Start 11/01/17 at 13:15 Ondansetron HCl (Zofran Inj) 4 mg Q6H PRN IVP NAUSEA OR VOMITING; Start at 20:15 Patient Medication Teaching (Coumadin Booklet) 1 ONCE ONCE OTHER Last administered on 11/02/17at 16:24; Start 11/02/17 at 16:00; Stop 11/02/17 at 16:01 ; Status DC Pharmacy Profile Note 0 ml @ 0 mls/hr UNSCH OTHER ; Start 11/02/17 at 08:45; Status Future hold Piperacillin Sod/ Tazobactam Sod 100 ml @ 200 mls/hr ONCE STAT IV Last administered on 11/04/17at 11:18; Start 11/04/17 at 10:08; Stop 11/04/17 at 10:37 ; Status DC Potassium Chloride/Sodium Chloride 1,000 ml @ 42 mls/hr [id number] IV Last administered on 11/07/17at 15:08; Start 11/03/17 at 14:00; Stop 11/08/17 at 09:07 ; Status DC Potassium Chloride (KCl Powder) 40 meq ONCE ONCE PO Last administered on at 09:11; Start 11/06/17 at 09:00; Stop 11/06/17 at 09:06; Status DC Quetiapine Fumarate (SEROquel) 50 mg BID@09,12 PO Last administered on at 08:06; Start 11/01/17 at 09:00 Senna/Docusate Sodium ([place]-Colace) 1 tab BID PO Last administered on 12/27/17at 08:25; Start 10/25/17 at 21:00 Sennosides (Senokot) 17.2 mg Q12H PRN PO Moderate constipation Last administered on 11/17/17at 10:02; Start 10/25/17 at 20:15 Sodium Chloride 1,000 ml @ 84 mls/hr [id number] IV Last administered on at 18:18; Start 12/11/17 at 17:00; Stop 12/23/17 at 10:48; Status DC Sodium Chloride (NS Flush) 2 ml BID IV FLUSH ; Start 11/04/17 at 21:00; Stop at 21:00; Status DC Vancomycin HCl (VANCOMYCIN for oral use only) 500 mg Q6H PO Last administered on 11/18/17at 17:47; Start 11/05/17 at 00:00; Stop 11/18/17 at 23:55; Status DC Vancomycin HCl (Vancomycin 25 Mg/ml Liq) 250 mg QID PO Last administered on 12/22at 20:00; Start 12/12/17 at 18:00; Stop 12/23/17 at 08:00; Status DC Vancomycin HCl 1000 mg/Sodium Chloride 250 ml @ 250 mls/hr Q24H IV ; Start at 12:00; Stop 11/05/17 at 12:00; Status DC Warfarin Sodium (Coumadin) 5 mg DAILY@1600 PO ; Start 12/30/17 at 16:00 A/P Problem List: (1) Encephalopathy ICD Code: G93.40 - Encephalopathy, unspecified (2) CVA (cerebral vascular accident) ICD Code: I63.9 - Cerebral infarction, unspecified (3) HTN (hypertension) ICD Code: I10 - Essential (primary) hypertension (4) Tobacco abuse ICD Code: Z72.0 - Tobacco use Assessment and Plan A/P 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 - Continue Coumadin. Continue PT/OT. - pharmacist consulted and managing the Coumadin dosing. Seizure - Continue Keppra- although the patient is not very compliant. - Seizure precautions - check keppra level. Hypertension - continue with current regimen. C. difficile colitis (hyper virulent strain) - finished the course of treatment with Vancomycin. Right heel wound. will reconsult wound care for follow-up. Bipolar disorder, agitation - Continue Seroquel. - seen by Psychiatry Cardiomyopathy - Continue beta evonne, JAYLEN inhibitor. Right subacute humeral fracture- occurred 12/11- ER - -Orthopedic services saw patient, appreciate recommendations. -Nonoperative management, continue to keep position for healing. - NWB right UE - repeat XR in 1-2 weeks. - PT - OP ff up with Ortho DVT prophylaxis - on Coumadin Discharge Planning dc planning in progress; likely later this week. Bobo Ridley MD Dec 30, 2017 11:14
--- NOTE | 2017-12-30 12:13 | PD.WCN.NOT ---
Wound Consult Description: Received consult for wound management of R heel to reassess Communicated with: RN Ophelia gray and Doctor Khai Recommendation: 1.Float right heel off mattress surface at all times 2.Cleanse open wound to R heel with normal saline and pat dry. 3.[place] right heel intact skin over deflated partially unroofed bulla. 4. Applied Xeroform gauze just over open skin on R heel and cover with dry 4x4 gauze pads 5. Secure dressing with rolled gauze and tape. 6.Change dressings every other day or PRN if saturated or dislodged Additional Information: Patient seen on [address] [place] [address] for evaluation of wound management of R heel reassessment. Patient is noted laying on regular hospital surface with heel in contact with mattress.R Heel wound is noted open to air. Wound measures 2cm x 1.3cm x ~<0.1cm. Wound presents as deflated partially unroofed bulla. Wound is still covered with ~80% lane colored skin and ~20% of the wound is open with pink tissue. Wound is dry without drainage or odor. Periwound is un remarkable. Cleansed wound with normal saline and patted dry. Applied skin prep to skin over deflated bulla on R heel. Applied Xeroform over pink tissue and covered with dry 4x4 gauze, secured with rolled gauze and tape. Heel was floated off the mattress with pillow. Patient is refusing to wear heel raiser boot. Neg Pressure Wound Therapy Wound Location Wound Location: [facility] right [facility] Dec 30, 2017 12:13
[2017-12-30] MEDS: ACETAMINOPHEN/HYDROcodone 325 MG/5 MG TAB PO PRN ×2 (14:34→20:51)
[2017-12-30] MEDS: WARFARIN SOD 5 MG TAB PO SCH (15:12)
--- NOTE | 2017-12-30 20:38 | HHI.PR ---
Addendum to Inpatient Note Addendum Reason: Additional Documentation Additional Information Residents received call for Halicat due to change in mental condition. Nurse reports that about 10mins prior to resident arrival, patient starting groaning and yelling. Patient is typically aphasic and is unable to communicate. Has been in the hospital s/p CVA but is having placement issues. Has been receiving Hampton q4hrs as well as Seroquel and Haldol. Last received Hampton about 6hrs ago is due for Haldol in about 30min. No new focal neurological changes from patient's baseline. Bedside glucose was around 140s. OBJECTIVE: Vital signs unremarkable General: Patient sitting up in bed with no focal neurological changes yelling/ moaning out. Patient is not following commands. Cardiac: Sinus tachycardia without obvious gallops, murmurs, rubs. Respiratory: Good air movement bilaterally. Clear to auscultation without crackles, rales, wheezes. Neurologic: Pupils equal round reactive and extraocular movements intact. No obvious focal deficits. A/P: 67-year-old female admitted for CVA with sequelae of aphasia. Patient with new onset yelling/moaning but without new neurological changes. Low/no concern for acute CVA. Patient is due for her next Haldol dose as she is 6 hours out from last Hampton which she has been getting relatively regular over the last several days but not as frequently today. Vital signs are otherwise unremarkable. Suspect yelling/moaning may be related to pain and/or agitation. -Okay to give next dose of Hampton as patient may be in pain. -Okay to give next dose of Haldol -Patient's attending arrived at bedside, updated attending about orders, deferred further management to attending. sdw Dr. Mark Riley,Barbara Roberts MD, R3 Dec 30, 2017 20:38
--- NOTE | 2017-12-30 21:24 | RADRPT ---
EXAM DATE/TIME: 12/30/2017 20:56 [facility] COMPARISON: No previous studies available for comparison. INDICATIONS : Dyspnea. MEDICAL HISTORY : Stroke. Hypertension Cardiovascular disease. SURGICAL HISTORY : None. ENCOUNTER: Initial ACUITY: 1 day PAIN SCORE: Non-responsive. LOCATION: Bilateral chest FINDINGS: A single view of the chest demonstrates the lungs to be symmetrically aerated without evidence of mas s, infiltrate or effusion. The cardiomediastinal contours are unremarkable. Osseous structures are intact. CONCLUSION: No evidence of acute cardiopulmonary disease. George Cervantes MD on December 30, 2017 at 21:22 Board Certified Radiologist. This report was verified electronically.
--- NOTE | 2017-12-30 21:29 | RADRPT ---
EXAM DATE/TIME: 12/30/2017 21:18 [facility] COMPARISON: CT BRAIN W/O CONTRAST, October 27, 2017, 17:34. INDICATIONS : Altered mental status. RADIATION DOSE: 34.10 CTDIvol (mGy) MEDICAL HISTORY : Stroke. Hypertension. SURGICAL HISTORY : section. ENCOUNTER: Initial ACUITY: 1 day PAIN SCALE: Non-responsive LOCATION: Bilateral head TECHNIQUE: Multiple contiguous axial images were obtained of the head. Using automated exposure control and adj ustment of the mA and/or kV according to patient size, radiation dose was kept as low as reasonably a chievable to obtain optimal diagnostic quality images. DICOM format image data is available electro nically for review and comparison. FINDINGS: CEREBRUM: The ventricles are normal for age. No evidence of midline shift, mass lesion, hemorrhage or acute in farction. No extra-axial fluid collections are seen. Old left middle cerebral artery distribution in farct again noted. POSTERIOR FOSSA: The cerebellum and brainstem are intact. The 4th ventricle is midline. The cerebellopontine angle i s unremarkable. EXTRACRANIAL: Partial clearing of previously seen sinus disease but some residual fluid levels are demonstrated in the bilateral sphenoid air cells. SKULL: The calvaria is intact. No evidence of skull fracture. CONCLUSION: 1. No acute intracranial abnormality. 2. Old infarct in the left middle cerebral artery distribution again seen. 3. Persistent sinusitis but appears somewhat improved. George Cervantes MD on December 30, 2017 at 21:25 Board Certified Radiologist. This report was verified electronically.
--- NOTE | 2017-12-30 21:42 | HHI.PR ---
Addendum to Inpatient Note Addendum Reason: Additional Documentation Additional Information pt had weird loud noise calling out to nurse staring into space and would not answer her then thus nurse called domenic came to examine pt no acute issues except answered yes when asked whether she is not comfortable global aphasia not able to express in wirting either HR was from 110-[address] brain labs tele monitoring suspect seizure, though not witnessed later called back again around 920p.m nurse found her slumped over almost unconscious for a few seconds was pretty sure this was seizure per nurse then back to baseline seizure precautions give keppra 500mg iv stat will follow up with work up eeg in am Jing Jacobo MD Dec 30, 2017 21:42
[2017-12-30] MEDS ORDERED: levETIRAcetam INJ 500 MG in SODIUM CHLORIDE 0.9% INJ 100 ML IV ONE (21:45)
[2017-12-30] MEDS ORDERED: levETIRAcetam 500 MG TAB PO ONE (22:15)
[2017-12-30 22:16] LABS: AUTOMATED NEUTROPHIL # 3.9 TH/MM3 (1.8-7.7); BASOPHIL # 0.1 TH/MM3 (0-0.2); EOSINOPHIL # 0.1 TH/MM3 (0-0.4); EOSINOPHIL % 1.3 % (0.0-4.0); HEMATOCRIT 36.5 % (35.0-46.0); HEMOGLOBIN 12.6 GM/DL (11.6-15.3); LYMPH % 31.6 % (9.0-44.0); LYMPHOCYTE # 2.2 TH/MM3 (1.0-4.8); MEAN CELL VOLUME 89.8 FL (80.0-100.0); MEAN CORPUSCULAR HEMOGLOBIN 31.1 PG (27.0-34.0); MEAN CORPUSCULAR HGB CONC 34.6 % (32.0-36.0); MEAN PLATELET VOLUME 7.9 FL (7.0-11.0); MONO % 9.6 % (0.0-8.0); MONOCYTE # 0.7 TH/MM3 (0-0.9); NEUT % 56.5 % (16.0-70.0); PLATELET COUNT 254 TH/MM3 (150-450); RED BLOOD COUNT 4.07 MIL/MM3 (4.00-5.30); RED CELL DISTRIBUTION WIDTH 15.9 % (11.6-17.2); WHITE BLOOD COUNT 6.9 TH/MM3 (4.0-11.0)
[2017-12-30 22:20] LABS: ALBUMIN 3.2 GM/DL (3.4-5.0); ALT (GPT) 24 U/L (10-53); AST (GOT) 15 U/L (15-37); BICARBONATE 31.9 MEQ/L (21.0-32.0); BLOOD UREA NITROGEN 20 MG/DL (7-18); CALCIUM 8.9 MG/DL (8.5-10.1); CHLORIDE 99 MEQ/L (98-107); CREATININE 0.98 MG/DL (0.50-1.00); GLOMERULAR FILTRATION RATE 57 ML/MIN (>89); GLUCOSE,RANDOM 106 MG/DL (74-106); MAGNESIUM 1.9 MG/DL (1.5-2.5); SODIUM (NA) 138 MEQ/L (136-145)
[2017-12-30 22:24] LABS: ALKALINE PHOSPHATASE 100 U/L (45-117); TOTAL BILIRUBIN ADULT 0.2 MG/DL (0.2-1.0); TOTAL PROTEIN 6.8 GM/DL (6.4-8.2); TROPONIN I LESS THAN 0.02 NG/ML (0.02-0.05)
[2017-12-31 01:17] VITALS: BP 136/63; PULSE 77; RESP 19; TEMP 97.4; O2SAT 98
[2017-12-31] MEDS: ACETAMINOPHEN/HYDROcodone 325 MG/5 MG TAB PO PRN ×2 (03:55→08:58)
[2017-12-31 04:04] LABS: INTERNATIONAL NORMALIZED RATIO 2.3 RATIO; PROTHROMBIN TIME - PATIENT 23.2 SEC (9.8-11.6)
[2017-12-31 04:23] LABS: TROPONIN I LESS THAN 0.02 NG/ML (0.02-0.05)
[2017-12-31 05:48] VITALS: BP 153/70; PULSE 75; RESP 19; TEMP 97.5; O2SAT 97
[2017-12-31 07:41] VITALS: BP 112/57; PULSE 78; RESP 18; TEMP 97.7; O2SAT 99
[2017-12-31] MEDS: SODIUM CHLORIDE 0.9% FLUSH 10 ML FLUSH IV FLUSH SCH (08:55)
[2017-12-31] MEDS: ATORVASTATIN 10 MG TAB PO SCH (09:00)
[2017-12-31] MEDS: LACTOBACILLUS ACIDOPHILUS TAB PO SCH (09:00)
[2017-12-31] MEDS: CARVEDILOL 3.125 MG TAB PO SCH (09:01)
[2017-12-31] MEDS: DOCUSATE SODIUM 50 MG/SENNA 8.6 MG TAB PO SCH (09:02)
[2017-12-31] MEDS: LISINOPRIL 5 MG TAB PO SCH (09:02)
--- NOTE | 2017-12-31 10:19 | HHI.PR ---
Subjective Remarks in no acute distress. d/w the RN; had a questionable episode of seizure last night. now is comfortable, awake and alert. night-time provider note was reviewed. Objective Vitals Vital Signs Date Time Temp Pulse Resp B/P (MAP) Pulse Ox O2 Delivery O2 Flow Rate FiO2 12/31/17 07:41 97.7 78 18 112/57 (75) 99 12/31/17 05:48 97.5 75 19 153/70 (97) 97 12/31/17 01:17 97.4 77 19 136/63 (87) 98 12/30/17 22:06 97.6 111 22 140/80 (100) 98 12/30/17 20:20 98 21 12/30/17 18:00 98.1 86 18 136/81 (99) 97 I/O 12/30/17 12/30/17 12/30/17 12/31/17 12/31/17 12/31/17 07:00 15:00 23:00 07:00 15:00 23:00 Intake Total 480 ml Balance 480 ml Intake Oral 480 ml # Voids 5 4 3 # Bowel Movements 2 4 Result Diagram: 12/30/17213212/30/172132 Imaging Last Impressions Head CT 12/30/17 0000 Signed Impressions: Service Date/Time: Saturday, December 30, 2017 21:18 - CONCLUSION: 1. No acute intracranial abnormality. 2. Old infarct in the left middle cerebral artery distribution again seen. 3. Persistent sinusitis but appears somewhat improved. George Cervantes MD Chest X-Ray 12/30/17 0000 Signed Impressions: Service Date/Time: Saturday, December 30, 2017 20:56 - CONCLUSION: No evidence of acute cardiopulmonary disease. George Cervantes MD Shoulder X-Ray 12/16/17 0000 Signed Impressions: Service Date/Time: Saturday, December 16, 2017 11:10 - CONCLUSION: Stable appearance to the subacute right proximal humeral neck fracture. Otherwise, no significant change is appreciated compared to the study from 2 weeks ago. George Jensen MD Humerus X-Ray 12/02/17 0000 Signed Impressions: Service Date/Time: Saturday, December 02, 2017 11:08 - CONCLUSION: 1. Fracture through the proximal humerus. There is periosteal bone formation suggesting healing. Nikolas Stewart MD Neck CTA 10/27/17 0000 Signed Impressions: Service Date/Time: Friday, October 27, 2017 17:42 - CONCLUSION: 1. Occluded left internal carotid artery 2. Mild narrowing at the origin of the right internal carotid artery measuring 30%%. 3. Patent vertebral arteries with good flow. Price Cee MD Head CTA 10/27/17 0000 Signed Impressions: Service Date/Time: Friday, October 27, 2017 17:42 - CONCLUSION: 1. Occluded intracranial segment of the left internal carotid artery. 2. Very scant flow in the left middle cerebral artery distribution with proximal MCA occlusion. 3. Evolving large left MCA infarct. Price Cee MD Carotid Artery Ultrasound 10/27/17 0000 Signed Impressions: Service Date/Time: Friday, October 27, 2017 16:16 - CONCLUSION: 1. Findings of left carotid occlusion. CT angiography of the carotid arteries the brain is recommended for further evaluation Soren Rose MD Brain MRI 10/26/17 0000 Signed Impressions: Service Date/Time: Thursday, October 26, 2017 16:34 - CONCLUSION: Cystic encephalomalacia involving large left middle cerebral artery ischemic infarction. There is a small focus of restricted diffusion in the posterior left frontal region without hemorrhage characteristic of extension of the infarct. Pansinusitis oSren Rose MD Radius/Ulna X-Ray 10/25/17 0000 Signed Impressions: Service Date/Time: Wednesday, October 25, 2017 20:03 - CONCLUSION: 1. No acute fracture or dislocation. No bony destructive changes. Carlton Early MD Objective Remarks GENERAL: This is a well-nourished, well-developed patient, in no apparent distress. CARDIOVASCULAR: Regular rate and regular rhythm without murmurs, gallops, or rubs. RESPIRATORY: Clear to auscultation. Breath sounds equal bilaterally. No wheezes , rales, or rhonchi. GASTROINTESTINAL: Abdomen soft, non-tender, nondistended. Normal, active bowel sounds MUSCULOSKELETAL: Extremities without clubbing, cyanosis, or edema. NEURO: Awake and alert with dysphasia. Procedures none Medications and IVs Inpatient Medications Acetaminophen 100 ml @ 400 mls/hr Q8H PRN IV fever if not taking PO ; Start at 16:45 Acetaminophen (Tylenol) 650 mg Q6H PRN PO FEVER/PAIN SCALE 1 TO 2 Last administered on 11/04/17at 17:50; Start 10/25/17 at 20:15 Acetaminophen/ Hydrocodone Bitart ([place] 5-325 Mg) 1 tab Q4H PRN PO PAIN SCALE 5 TO 10 Last administered on 12/31/17at 08:58; Start 10/25/17 at 20:15 Acetaminophen/ Hydrocodone Bitart ([place] 10-325 Mg) 1 tab Q4H PRN PO PAIN SCALE 6 TO 10 Last administered on 11/27/17at 23:04; Start 10/25/17 at 20:15; Stop 11/30/17 at 10:07; Status DC Albuterol Sulfate (Albuterol Neb) 0.63 mg Q6HR NEB NEB Last administered on at 10:19; Start 11/04/17 at 10:00; Stop 11/08/17 at 09:59; Status DC Aspirin (Aspirin Supp) 300 mg DAILY RECTAL Last administered on 11/03/17at 07:37 ; Start 10/28/17 at 09:00; Stop 11/03/17 at 15:12; Status DC Aspirin (Aspirin) 325 mg DAILY PO Last administered on 10/27/17at 09:33; Start at 09:00; Stop 10/28/17 at 08:00; Status DC Atorvastatin Calcium (Lipitor) 10 mg DAILY PO Last administered on 12/30/17at 08 :06; Start 10/26/17 at 09:00 Bisacodyl (Dulcolax Supp) 10 mg DAILY PRN RECTAL SEVERE CONSITIPATION; Start at 20:15 Carvedilol (Coreg) 3.125 mg Q12HR PO Last administered on 12/30/17at 21:53; Start 10/31/17 at 21:00; Status Future hold Clonidine (Catapres) 0.1 mg ONCE ONCE PO Last administered on 11/28/17at 00:20; Start 11/28/17 at 00:15; Stop 11/28/17 at 00:16; Status DC Clopidogrel Bisulfate (Plavix) 75 mg DAILY PO Last administered on 10/27/17at 13: 23; Start 10/27/17 at 13:00; Stop 10/27/17 at 20:57; Status DC Dextrose (D50w (Vial) Inj) 50 ml UNSCH PRN IV PUSH HYPOGLYCEMIA-SEE COMMENTS; Start 10/27/17 at 21:00; Stop 11/02/17 at 11:35; Status DC Diazepam (Valium) 5 mg Q12HR PO Last administered on 12/16/17at 20:43; Start 10/25/17 at 21:00; Stop 12/17/17 at 11:01; Status DC Enalaprilat (Vasotec Inj) 2.5 mg Q6H PRN IV PUSH SBP>160, DBP>90 Last administered on 12/13/17at 10:12; Start 12/07/17 at 11:15 Glucagon (Glucagon Inj) 1 mg UNSCH PRN OTHER HYPOGLYCEMIA-SEE COMMENTS; Start 10/27/17 at 21:00; Stop 11/02/17 at 11:35; Status DC Haloperidol (Haldol) 2 mg TID PRN PO AGITATION AND/OR HALLUCINATION; Start at 11:15; Stop 12/07/17 at 15:36; Status DC Haloperidol Lactate (Haldol Inj) 2 mg Q8H PRN IM severe agitation ; Start at 12:30; Stop 10/31/17 at 15:05; Status DC Haloperidol Lactate (Haldol Lactate Liq) 2 mg BID PO Last administered on at 20:31; Start 12/07/17 at 21:00 Heparin Sodium (Porcine) (Heparin Inj) 5,000 units Q12HR SQ Last administered on 10/27/17at 20:40; Start 10/27/17 at 21:00; Stop 10/27/17 at 21:00; Status DC Heparin Sodium/ Dextrose 250 ml @ 7 mls/hr TITRATE PRN IV Coagulation Management Last administered on 11/02/17at 12:05; Start 10/27/17 at 22:30; Stop at 15:02; Status DC Hydralazine HCl (Apresoline) 10 mg Q6HR PRN PO SBP>160, DBP>90 Last administered on 12/29/17at 14:41; Start 12/07/17 at 11:15 Insulin Aspart (NovoLOG SUPPLEMENTAL SCALE) 1 ACHS SQ ; Start 10/27/17 at 21:00; Stop 11/02/17 at 11:35; Status DC Lactobacillus Acidophilus (Lactinex) 1 tab Q12HR PO Last administered on at 21:53; Start 12/11/17 at 21:00 Lactulose (Lactulose Liq) 30 ml DAILY PRN PO SEVERE CONSITIPATION Last administered on 10/31/17at 08:40; Start 10/25/17 at 20:15 Levetriacetam (Keppra Liq) 1,000 mg Q12HR PO Last administered on 12/30/17at 21 :53; Start 11/29/17 at 09:00 Levetriacetam (Keppra) 500 mg ONCE ONCE PO Last administered on 12/30/17at 22: 29; Start 12/30/17 at 22:15; Stop 12/30/17 at 22:18; Status DC Levetriacetam 500 mg/Sodium Chloride 105 ml @ 420 mls/hr BOLUS ONCE IV ; Start 12/30/17 at 21:45; Stop 12/30/17 at 22:14; Status DC Lisinopril (Prinivil) 5 mg BID PO Last administered on 12/30/17at 21:54; Start 11/08/17 at 21:00 Lorazepam (Ativan Inj) 1 mg Q6HR PRN IV PUSH SEIZURES; Start 10/26/17 at 15:00 Magnesium Hydroxide (Milk Of Magnesia Liq) 30 ml Q12H PRN PO Mild constipation Last administered on 11/11/17at 09:36; Start 10/25/17 at 20:15 Metoprolol Tartrate (Lopressor Inj) 5 mg ONCE ONCE IV PUSH Last administered on 10/25/17at 20:43; Start 10/25/17 at 20:30; Stop 10/25/17 at 20:31; Status DC Metronidazole 100 ml @ 100 mls/hr Q8H IV Last administered on 12/14/17at 03:12 ; Start 12/11/17 at 20:00; Stop 12/14/17 at 12:48; Status DC Metronidazole (Flagyl) 500 mg ONCE ONCE PO Last administered on 11/04/17at 21: 33; Start 11/04/17 at 20:00; Stop 11/04/17 at 20:01; Status DC Miscellaneous (Pill Splitter) 1 ea UNSCH PRN OTHER SEE LABEL COMMENTS; Start at 16:45 Morphine Sulfate (Morphine Inj) 2 mg Q4H PRN IV PAIN 6-10 IF NOT TOLERATING PO Last administered on 11/06/17at 17:48; Start 10/28/17 at 08:15; Stop 12/16/17 at 08:24; Status DC Olanzapine (ZyPREXA INJ) 10 mg Q12H PRN IM agitation Last administered on at 07:37; Start 11/01/17 at 13:15 Ondansetron HCl (Zofran Inj) 4 mg Q6H PRN IVP NAUSEA OR VOMITING; Start at 20:15 Patient Medication Teaching (Coumadin Booklet) 1 ONCE ONCE OTHER Last administered on 11/02/17at 16:24; Start 11/02/17 at 16:00; Stop 11/02/17 at 16:01 ; Status DC Pharmacy Profile Note 0 ml @ 0 mls/hr UNSCH OTHER ; Start 11/02/17 at 08:45; Status Future hold Piperacillin Sod/ Tazobactam Sod 100 ml @ 200 mls/hr ONCE STAT IV Last administered on 11/04/17at 11:18; Start 11/04/17 at 10:08; Stop 11/04/17 at 10:37 ; Status DC Potassium Chloride/Sodium Chloride 1,000 ml @ 42 mls/hr [id number] IV Last administered on 11/07/17at 15:08; Start 11/03/17 at 14:00; Stop 11/08/17 at 09:07 ; Status DC Potassium Chloride (KCl Powder) 40 meq ONCE ONCE PO Last administered on at 09:11; Start 11/06/17 at 09:00; Stop 11/06/17 at 09:06; Status DC Quetiapine Fumarate (SEROquel) 50 mg BID@09,12 PO Last administered on at 11:37; Start 11/01/17 at 09:00 Senna/Docusate Sodium (Aleah-Colace) 1 tab BID PO Last administered on 12/27/17at 08:25; Start 10/25/17 at 21:00 Sennosides (Senokot) 17.2 mg Q12H PRN PO Moderate constipation Last administered on 11/17/17at 10:02; Start 10/25/17 at 20:15 Sodium Chloride 1,000 ml @ 84 mls/hr [id number] IV Last administered on at 18:18; Start 12/11/17 at 17:00; Stop 12/23/17 at 10:48; Status DC Sodium Chloride (NS Flush) 2 ml BID IV FLUSH ; Start 11/04/17 at 21:00; Stop at 21:00; Status DC Vancomycin HCl (VANCOMYCIN for oral use only) 500 mg Q6H PO Last administered on 11/18/17at 17:47; Start 11/05/17 at 00:00; Stop 11/18/17 at 23:55; Status DC Vancomycin HCl (Vancomycin 25 Mg/ml Liq) 250 mg QID PO Last administered on 12/22at 20:00; Start 12/12/17 at 18:00; Stop 12/23/17 at 08:00; Status DC Vancomycin HCl 1000 mg/Sodium Chloride 250 ml @ 250 mls/hr Q24H IV ; Start at 12:00; Stop 11/05/17 at 12:00; Status DC Warfarin Sodium (Coumadin) 5 mg DAILY@1600 PO Last administered on 12/30/17at 15 :12; Start 12/30/17 at 16:00 A/P Problem List: (1) Encephalopathy ICD Code: G93.40 - Encephalopathy, unspecified (2) CVA (cerebral vascular accident) ICD Code: I63.9 - Cerebral infarction, unspecified (3) HTN (hypertension) ICD Code: I10 - Essential (primary) hypertension (4) Tobacco abuse ICD Code: Z72.0 - Tobacco use Assessment and Plan A/P 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 - Continue Coumadin. Continue PT/OT. - pharmacist consulted and managing the Coumadin dosing. Seizure -had a questionable episode of seizure last night. -head CT with no acute abnormality- patient refused EEG. -d/w today; will continue with Keppra; the same dosage with f/u as outpatient. - Continue Keppra- although the patient is not very compliant. -keprra level pending. - Seizure precautions Hypertension - continue with current regimen. C. difficile colitis (hyper virulent strain) - finished the course of treatment with Vancomycin. Right heel wound. l reconsulted wound care for follow-up. Bipolar disorder, agitation - Continue Seroquel. - seen by Psychiatry Cardiomyopathy - Continue beta evonne, JAYLEN inhibitor. Right subacute humeral fracture- occurred 09/30- ER - -Orthopedic services saw patient, appreciate recommendations. -Nonoperative management, continue to keep position for healing. - NWB right UE - repeat XR in 1-2 weeks. - PT - OP ff up with Ortho DVT prophylaxis - on Coumadin Discharge Planning dc to SNF later this afternoon if stable. see med list. PT/INR/ keppra level to be followed up as outpatient. f/u; pcp, neurology and ortho. d/w the RN and . time spent 35 min. Bobo Ridley MD Dec 31, 2017 10:19
--- NOTE | 2017-12-31 10:25 | HHI.DS ---
Discharge Summary Admission Date Oct 27, 2017 at 13:11 Discharge Date: Dec 31, 2017 Admitting Diagnosis Possible seizure, possible TIA (1) Encephalopathy ICD Code: G93.40 - Encephalopathy, unspecified Diagnosis: Principal (2) CVA (cerebral vascular accident) ICD Code: I63.9 - Cerebral infarction, unspecified Diagnosis: Principal (3) HTN (hypertension) ICD Code: I10 - Essential (primary) hypertension Diagnosis: Secondary (4) Tobacco abuse ICD Code: Z72.0 - Tobacco use Diagnosis: Secondary Procedures none Brief History - From Admission History of present illness from the admitting physician This is a 67-year-old female w/ a PMH of CVA w/ Residual Aphasia, Right Hemiplegia and Left Hemiparesis, HTN, DM, Bipolar Disorder and Tobacco Abuse who was sent to the ER from [facility] secondary to acute AMS. Per report, pt wheeled herself outside to smoke and was found slumped over in her wheelchair. Pt unable to provide history due to aphasia and previous CVA. No reported seizure like activity at that time. Upon arrival to ER, pt's Sister reports pt back to baseline mental status. BP 194/90, HR 78, O2 sat 98% on RA, Afebrile. CBC unremarkable. Chemistry essentially unremarkable. Troponin negative. INR 1.1. UA pending. CXR with no acute findings. CT Head was stable remote left MCA infarct. Pt was to be d/c'd back to Rehab, however had episode of "seizure" while in ER, witnessed only by pt's Sister. Sister reports pt was "staring off into space" for several minutes. No h/o seizure in the past. CBC/BMP: 12/30/17 2133 12/30/172132 Significant Findings Laboratory Tests Test 12/29/17 09:08 12/30/17 07:47 12/30/17 21:33 12/31/17 03:31 Prothrombin Time 15.8 SEC (9.8-11.6) 20.5 SEC (9.8-11.6) 23.2 SEC (9.8-11.6) Random Glucose 130 MG/DL (74-106) Carbon Dioxide Level 33.1 MEQ/L (21.0-32.0) Estimat Glomerular Filtration Rate 80 ML/MIN (>89) 57 ML/MIN (>89) Monocytes (%) (Auto) 9.6 % (0.0-8.0) Blood Urea Nitrogen 20 MG/DL (7-18) Albumin 3.2 GM/DL (3.4-5.0) Total Creatine Kinase 20 U/L (26-192) 21 U/L (26-192) Troponin I LESS THAN 0.02 NG/ML LESS THAN 0.02 NG/ML Imaging Last Impressions Head CT 12/30/17 0000 Signed Impressions: Service Date/Time: Saturday, December 30, 2017 21:18 - CONCLUSION: 1. No acute intracranial abnormality. 2. Old infarct in the left middle cerebral artery distribution again seen. 3. Persistent sinusitis but appears somewhat improved. George Cervantes MD Chest X-Ray 12/30/17 0000 Signed Impressions: Service Date/Time: Saturday, December 30, 2017 20:56 - CONCLUSION: No evidence of acute cardiopulmonary disease. George Cervantes MD Shoulder X-Ray 12/16/17 0000 Signed Impressions: Service Date/Time: Saturday, December 16, 2017 11:10 - CONCLUSION: Stable appearance to the subacute right proximal humeral neck fracture. Otherwise, no significant change is appreciated compared to the study from 2 weeks ago. George Jensen MD Humerus X-Ray 12/02/17 0000 Signed Impressions: Service Date/Time: Saturday, December 02, 2017 11:08 - CONCLUSION: 1. Fracture through the proximal humerus. There is periosteal bone formation suggesting healing. Nikolas Stewart MD Neck CTA 10/27/17 0000 Signed Impressions: Service Date/Time: Friday, October 27, 2017 17:42 - CONCLUSION: 1. Occluded left internal carotid artery 2. Mild narrowing at the origin of the right internal carotid artery measuring 30%%. 3. Patent vertebral arteries with good flow. Price Cee MD Head CTA 10/27/17 0000 Signed Impressions: Service Date/Time: Friday, October 27, 2017 17:42 - CONCLUSION: 1. Occluded intracranial segment of the left internal carotid artery. 2. Very scant flow in the left middle cerebral artery distribution with proximal MCA occlusion. 3. Evolving large left MCA infarct. Price Cee MD Carotid Artery Ultrasound 10/27/17 0000 Signed Impressions: Service Date/Time: Friday, October 27, 2017 16:16 - CONCLUSION: 1. Findings of left carotid occlusion. CT angiography of the carotid arteries the brain is recommended for further evaluation Soren Rose MD Brain MRI 10/26/17 0000 Signed Impressions: Service Date/Time: Thursday, October 26, 2017 16:34 - CONCLUSION: Cystic encephalomalacia involving large left middle cerebral artery ischemic infarction. There is a small focus of restricted diffusion in the posterior left frontal region without hemorrhage characteristic of extension of the infarct. Pansinusitis Soren Rose MD Radius/Ulna X-Ray 10/25/17 0000 Signed Impressions: Service Date/Time: Wednesday, October 25, 2017 20:03 - CONCLUSION: 1. No acute fracture or dislocation. No bony destructive changes. Carlton Early MD PE at Discharge GENERAL: White female in no acute distress but is very agitated because she cannot express herself. CARDIOVASCULAR: Regular rate and rhythm without murmurs, gallops, or rubs. RESPIRATORY: Breath sounds equal bilaterally. No accessory muscle use. GASTROINTESTINAL: Abdomen soft, non-tender, nondistended. MUSCULOSKELETAL: No cyanosis, or edema. Right-sided weakness SKIN: right heel wound NEUROLOGIC: Right hemiparesis of upper and lower extremities moves left arm. Patient moves her left leg without any difficulty. Hospital Course 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 - Continue Coumadin. Continue PT/OT. - pharmacist consulted and managing the Coumadin dosing. Seizure -d/w prior to discharge; will continue with Keppra; the same dosage with f/u as outpatient. - Continue Keppra- although the patient is not very compliant. -keprra level pending. - Seizure precautions Hypertension - continue with current regimen. C. difficile colitis (hyper virulent strain) - finished the course of treatment with Vancomycin. Right heel wound. l reconsulted wound care for follow-up. Bipolar disorder, agitation - Continue Seroquel. - seen by Psychiatry Cardiomyopathy - Continue beta evonne, JAYLEN inhibitor. Right subacute humeral fracture- occurred 09/30- ER - -Orthopedic services saw patient, appreciate recommendations. -Nonoperative management, continue to keep position for healing. - NWB right UE - repeat XR in 1-2 weeks. - PT - OP ff up with Ortho Pt Condition on Discharge: Fair Discharge Disposition: Discharge to SNF Discharge Time: > 30 minutes Discharge Instructions DIET: Follow Instructions for: Heart Healthy Diet Activities you can perform: Regular-No Restrictions Bobo Ridley MD Dec 31, 2017 10:25
[2017-12-31] MEDS ORDERED: HALO2S PO (11:32)
[2017-12-31] MEDS ORDERED: LORA-474 PO (11:32)
[2017-12-31] MEDS ORDERED: HYDR-3516 PO (11:32)
[2017-12-31 11:47] VITALS: BP 116/60; PULSE 89; RESP 18; TEMP 97.3; O2SAT 98
[2017-12-31] MEDS: HALOPERIDOL LACTATE ORAL CONC 10 MG/5 ML CUP PO SCH (12:54)
[2017-12-31] MEDS: levETIRAcetam 500 MG/5 ML UDC PO SCH (12:55)
[2017-12-31] MEDS: QUEtiapine FUMARATE 25 MG TAB PO SCH ×2 (12:55→16:00)
[2017-12-31 15:48] VITALS: BP 145/76; PULSE 88; RESP 19; TEMP 97.6; O2SAT 94
[2017-12-31] MEDS: WARFARIN SOD 5 MG TAB PO SCH (16:00)
--- NOTE | 2017-12-31 19:08 | EKG ---
Date Performed: 12/31/2017 Time Performed: 09:54:38 PTAGE: 67 years EKG: Sinus rhythm WITH FIRST DEGREE AV BLOCK WITH OCCASIONAL SUPRAVENTRICULAR PREMATURE COMPLEXES MODERATE T-WAVE ABNO RMALITY ABNORMAL ECG PREVIOUS TRACING : 12/31/2017 03.29 Since the previous tracing, no significant change noted DOCTOR: Arnav Kendrick Interpretating Date/Time 12/31/2017 19:06:54
--- NOTE | 2017-12-31 19:25 | EKG ---
Date Performed: 12/31/2017 Time Performed: 03:29:02 PTAGE: 67 years EKG: Sinus rhythm Possible anteroseptal infarct - age undetermined Inferior/lateral T wave changes Abnormal ECG PREVIOUS TRACING : 12/30/2017 21.31 Since the previous tracing, no significant change noted DOCTOR: Arnav Kendrick Interpretating Date/Time 12/31/2017 19:24:32
--- NOTE | 2017-12-31 19:56 | EKG ---
Date Performed: 12/30/2017 Time Performed: 21:31:01 PTAGE: 67 years EKG: Sinus rhythm WITH FIRST DEGREE AV BLOCK NONSPECIFIC T-WAVE ABNORMALITY ABNORMAL ECG PREVIOUS TRACING : 10/28/2017 16.03 Since the previous tracing, no significant change noted DOCTOR: Arnav Kendrick Interpretating Date/Time 12/31/2017 19:54:49
== END 2017-12-31 17:14 | DRG 64 ==
LOC: NEPC 17:11 → NEDA 19:59 → NEPGCP 21:41 → OBSVTOIN 10-27 13:11 → N03A 10-27 19:59 → N03B 10-29 18:55 → N05A 11-06 23:02
PROVIDERS: ADMIT Internal Medicine; ATTEND Internal Medicine
DX: I63.9 Cerebral infarction, unspecified (principal); G93.40 Encephalopathy, unspecified; A04.72 Enterocolitis due to Clostridium difficile, not specified as recurrent; F05 Delirium due to known physiological condition; I42.9 Cardiomyopathy, unspecified; I69.351 Hemiplegia and hemiparesis following cerebral infarction affecting right dominant side; G40.89 Other seizures; I69.320 Aphasia following cerebral infarction; S42.201D Unspecified fracture of upper end of right humerus, subsequent encounter for fracture with routine healing; M79.7 Fibromyalgia; R47.1 Dysarthria and anarthria; I10 Essential (primary) hypertension; E11.9 Type 2 diabetes mellitus without complications; F31.9 Bipolar disorder, unspecified; E78.00 Pure hypercholesterolemia, unspecified; F17.210 Nicotine dependence, cigarettes, uncomplicated; R29.734 NIHSS score 34; Z51.5 Encounter for palliative care; Z79.82 Long term (current) use of aspirin; W19.XXXD Unspecified fall, subsequent encounter; M19.90 Unspecified osteoarthritis, unspecified site; L98.8 Other specified disorders of the skin and subcutaneous tissue; Z75.1 Person awaiting admission to adequate facility elsewhere; Z91.81 History of falling; Z91.19 Patient's noncompliance with other medical treatment and regimen
CPT/HCPCS: 70450; 70496; 70498; 70553; 71045; 73030; 73060; 73090; 80048; 80053; 80061; 80177; 81001; 82140; 82435; 82550; 82565; 82947; 82948; 83605; 83735; 84132; 84295; 84443; 84484; 84520; 85007; 85025; 85027; 85610; 85730; 87040; 87086; 87493; 87641; 93005; 93306; 93880; 94640; 94664; 95819; 96361; 96374; A9579; G0378; G8987-GO; G8987-GP; G8988-GO; G8988-GP; J0131; J1630; J1644; J1953; J2270; J2543; J3370; J3480; J7030; J7050; J7613; Q9967